=== PATIENT | female | born 1935 | race Caucasian/White ===

== ENCOUNTER 2017-08-25 12:13 | Emergency (ER) | payer MEDICARE ==
--- NOTE | 2017-08-25 13:10 | ED ---
General Adult HPI - General Chief complaint: Back Pain/Injury Stated complaint: Back Pain-sent by dr Ocampo Seen by Provider: 08/25/17 12:45 Source: patient, RN notes reviewed Mode of arrival: wheelchair Limitations: no limitations - History of Present Illness Initial comments: This is an 82-year-old female presents to the emergency department complaining of a two-week history of back pain. Patient states the back pain is just beneath her right scapula. Patient states that pain is increased with bending or twisting. Patient states on Tuesday she started having pain in the epigastric right upper quadrant region which eventually subsided and since has not returned. Patient denies any nausea or vomiting. Patient denies any chest pain difficulty breathing or shortness of breath. Patient denies any injury or trauma recently. Patient denies any fever chills or cough. Patient denies headache patient denies numbness weakness. Patient denies lightheadedness dizziness or near syncopal episode. Patient does state that the pain in her back it's better if she lies still and doesn't move. - Related Data Home Medications Medication Instructions Recorded Confirmed Aspirin 81 mg PO DAILY 08/25/17 08/25/17 Cholecalciferol (Vitamin D3) 2,000 unit PO DAILY 08/25/17 08/25/17 [Vitamin D3] Hydrochlorothiazide [Hydrodiuril] 25 mg PO DAILY 08/25/17 08/25/17 Losartan Potassium [Cozaar] 100 mg PO DAILY 08/25/17 08/25/17 Metoprolol Tartrate [Lopressor] 50 mg PO BID 08/25/17 08/25/17 Omeprazole [PriLOSEC] 40 mg PO DAILY 08/25/17 08/25/17 Simvastatin [Zocor] 10 mg PO HS 08/25/17 08/25/17 Warfarin Sodium 2.5 mg PO MOTUWEFRSA 08/25/17 08/25/17 Warfarin [Coumadin] 1.25 mg PO SUTH 08/25/17 08/25/17 amLODIPine [Norvasc] 2.5 mg PO DAILY 08/25/17 08/25/17 glipiZIDE [Glucotrol] 5 mg PO AC-BID 08/25/17 08/25/17 metFORMIN HCL [Glucophage] 1,000 mg PO AC-BID 08/25/17 08/25/17 Allergies Allergy/AdvReac Type Severity Reaction Status Date / Time azithromycin Allergy Dyspnea & Verified 08/25/17 13:12 nausea ciprofloxacin [From Cipro] Allergy Dyspnea & Verified 08/25/17 13:12 nausea Penicillins Allergy Rash/Hives Verified 08/25/17 13:12 Review of Systems ROS Statement: Those systems with pertinent positive or pertinent negative responses have been documented in the HPI. ROS Other: All systems not noted in ROS Statement are negative. Past Medical History Past Medical History: No Reported History, Diabetes Mellitus, GERD/Reflux, Hyperlipidemia, Hypertension, Osteoarthritis (OA), Pulmonary Embolus (PE) Additional Past Medical History / Comment(s): obestiy pe dvt History of Any Multi-Drug Resistant Organisms: None Reported Past Surgical History: Joint Replacement Additional Past Surgical History / Comment(s): thelma knee replac shoulder carpel tunnel vaginal duct cyst benign breast surg cataracts Past Psychological History: No Psychological Hx Reported Smoking Status: Never smoker Past Alcohol Use History: Rare Past Drug Use History: None Reported General Exam - General Exam Comments Initial Comments: GENERAL: Patient is well-developed and well-nourished. Patient is nontoxic and well- hydrated and is in no acute distress. ENT: Neck is soft and supple. No significant lymphadenopathy is noted. Oropharynx is clear. Moist mucous membranes. Neck has full range of motion without eliciting any pain. EYES: The sclera were anicteric and conjunctiva were pink and moist. Extraocular movements were intact and pupils were equal round and reactive to light. Eyelids were unremarkable. PULMONARY: Unlabored respirations. Good breath sounds bilaterally. No audible rales rhonchi or wheezing was noted. CARDIOVASCULAR: There is a regular rate and rhythm without any murmurs gallops or rubs. ABDOMEN: Soft and nontender with normal bowel sounds. No palpable organomegaly was noted. There is no palpable pulsatile mass. SKIN: Skin is clear with no lesions or rashes and otherwise unremarkable. NEUROLOGIC: Patient is alert and oriented x3. Cranial nerves II through XII are grossly intact. Motor and sensory are also intact. Normal speech, volume and content. Symmetrical smile. MUSCULOSKELETAL: Normal extremities with adequate strength and full range of motion. Patient has tenderness about the right scapula and just beneath the right scapula. Patient states this pain is same pain that she has been experiencing.. LYMPHATICS: No significant lymphadenopathy is noted PSYCHIATRIC: Normal psychiatric evaluation. Limitations: no limitations Course Vital Signs 08/25/17 08/25/17 08/25/17 12:45 14:14 15:53 Temperature 99.3 F Pulse Rate 59 L 64 66 Respiratory 18 16 16 Rate Blood Pressure 120/59 129/68 130/70 O2 Sat by Pulse 98 100 98 Oximetry Medical Decision Making - Medical Decision Making EKG shows sinus rhythm at 64 bpm [place] interval is 202 QRS is 84 QT interval 424 QTC is 437. Patient's EKG shows no ST segment elevation or depression or T- wave abnormality she noted Patient's ultrasound of the aorta was normal. Patient's ultrasound gallbladder did not show any signs of acute cholecystitis. Patient stated the Toradol seemed to help her pain. Patient stated that she was able to twist more freely at this time. - Lab Data Result diagrams: 08/25/17 13:30 08/25/17 13:30 Lab Results 08/25/17 08/25/17 08/25/17 Range/Units 13:30 13:30 13:30 WBC 7.4 (3.8-10.6) k/uL RBC 4.78 (3.80-5.40) m/uL Hgb 14.4 (11.4-16.0) gm/dL Hct 44.1 (34.0-46.0) % MCV 92.2 (80.0-100.0) fL MCH 30.2 (25.0-35.0) pg MCHC 32.8 (31.0-37.0) g/dL RDW 15.4 (11.5-15.5) % Plt Count 244 (150-450) k/uL Neutrophils % 66 % Lymphocytes % 23 % Monocytes % 7 % Eosinophils % 2 % Basophils % 1 % Neutrophils # 4.9 (1.3-7.7) k/uL Lymphocytes # 1.7 (1.0-4.8) k/uL Monocytes # 0.5 (0-1.0) k/uL Eosinophils # 0.2 (0-0.7) k/uL Basophils # 0.0 (0-0.2) k/uL Sodium 138 (137-145) mmol/L Potassium 4.2 (3.5-5.1) mmol/L Chloride 104 (98-107) mmol/L Carbon Dioxide 23 (22-30) mmol/L Anion Gap 11 mmol/L BUN 20 H (7-17) mg/dL Creatinine 0.73 (0.52-1.04) mg/dL Est GFR (MDRD) Af Amer >60 (>60 ml/min/1.73 sqM) Est GFR (MDRD) Non-Af >60 (>60 ml/min/1.73 sqM) Glucose 110 H (74-99) mg/dL Calcium 9.3 (8.4-10.2) mg/dL Total Bilirubin 0.3 (0.2-1.3) mg/dL AST 16 (14-36) U/L ALT 22 (9-52) U/L Alkaline Phosphatase 74 (38-126) U/L Total Creatine Kinase 43 (30-135) U/L CK-MB (CK-2) 0.8 (0.0-2.4) ng/mL CK-MB (CK-2) Rel Index 1.9 Troponin I <0.012 (0.000-0.034) ng/mL Total Protein 6.7 (6.3-8.2) g/dL Albumin 3.5 (3.5-5.0) g/dL Amylase 39 (30-110) U/L Lipase 92 (23-300) U/L Disposition Clinical Impression: Acute thoracic back pain Disposition: HOME SELF-CARE Condition: Good Instructions: Thoracic Back Strain (ED) Additional Instructions: Patient should take 40 mg of Motrin 2-3 times a day when necessary for pain Referrals: Lexis Mcdowell MD [Primary Care Provider] - 1-2 days Time of Disposition: 16:03
[2017-08-25] MEDS ORDERED: KETOROLAC 30 MG/ML 1 ML VIAL IVP STA (13:39)
[2017-08-25 13:56] LABS: Basophils % (A) 1 %; CH 30.9; CHCM 33.7; Eosinophils # (A) 0.2 k/uL (0-0.7); Eosinophils % (A) 2 %; HCT 44.1 % (34.0-46.0); HDW 2.64; HGB 14.4 gm/dL (11.4-16.0); Luc # (Auto) 0.11; Luc % (Auto) 2; Lymphocytes # (A) 1.7 k/uL (1.0-4.8); Lymphocytes % (A) 23 %; MCH 30.2 pg (25.0-35.0); MCHC 32.8 g/dL (31.0-37.0); MCV 92.2 fL (80.0-100.0); Mean Platelet Volume 8.6; Monocytes # (A) 0.5 k/uL (0-1.0); Monocytes % (A) 7 %; Neutrophils # (A) 4.9 k/uL (1.3-7.7); Neutrophils % (A) 66 %; RBC 4.78 m/uL (3.80-5.40); RDW 15.4 % (11.5-15.5); WBC 7.4 k/uL (3.8-10.6); WBC (Perox) 7.25
--- NOTE | 2017-08-25 14:00 | XR ---
EXAMINATION TYPE: XR chest 2V DATE OF EXAM: 08/25/2017 COMPARISON: 06/06/2013 HISTORY: Lower chest pain TECHNIQUE: Frontal and lateral views of the chest are obtained. FINDINGS: There is no focal air space opacity, pleural effusion, or pneumothorax seen. The cardiac silhouette size is mildly enlarged. Left humeral arthroplasty is noted The osseous structures are in tact. Mild degenerative changes of the thoracic spine are seen. Copious soft tissues partially obscur e the lower lungs. Degenerative changes of the right glenohumeral joint are also noted. IMPRESSION: No acute cardiopulmonary process.
[2017-08-25 14:03] LABS: ALT 22 U/L (9-52); AST 16 U/L (14-36); Alkaline Phosphatase 74 U/L (38-126); Amylase 39 U/L (30-110); Anion Gap 11 mmol/L; Blood Urea Nitrogen 20 mg/dL (7-17); Calcium 9.3 mg/dL (8.4-10.2); Carbon Dioxide 23 mmol/L (22-30); Chloride 104 mmol/L (98-107); Glucose 110 mg/dL (74-99); Non-African American GFR(MDRD) >60 (>60 ml/min/1.73 sqM); Potassium 4.2 mmol/L (3.5-5.1); Sodium 138 mmol/L (137-145); Total Bilirubin 0.3 mg/dL (0.2-1.3); Total Protein 6.7 g/dL (6.3-8.2)
[2017-08-25 14:18] VITALS: RESP 16
[2017-08-25 14:18] LABS: Creatine Kinase 43 U/L (30-135)
[2017-08-25 14:31] LABS: Creatine Kinase MB 0.8 ng/mL (0.0-2.4); Troponin I <0.012 ng/mL (0.000-0.034)
--- NOTE | 2017-08-25 15:50 | US ---
EXAMINATION TYPE: US duplex aorta DATE OF EXAM: 08/25/2017 COMPARISON: NONE CLINICAL HISTORY: Pain. midline pain radiating to back. Nonsmoker. EXAM MEASUREMENTS: Abdominal Aorta: Proximal: 1.7 x 2.5 cm Mid: 1.5 x 1.8 cm Distal: 1.4 x 1.5 cm Bifurcation: Right- 1.4 x 1.0 cm Left- 1.4 x 0.9 cm Suboptimal visualization due to overlying bowel gas and patient body habitus. Portions seen, no AAA was visualized. Grayscale, color Doppler, spectral Doppler imaging performed of the abdominal aorta. IMPRESSION: Abdominal aortic aneurysm is not evident within the abdominal aorta as visualized. There are slight limitations in the exam however.
--- NOTE | 2017-08-25 15:51 | US ---
EXAMINATION TYPE: US gallbladder DATE OF EXAM: 08/25/2017 COMPARISON: NONE CLINICAL HISTORY: Pain. ML pain, no nausea or vomiting. Patient states last eating at 8 AM. EXAM MEASUREMENTS: Liver Length: 22.5 cm Gallbladder Wall: 0.3 cm CBD: 0.6 cm Right Kidney: 10.9 x 5.1 x 5.6 cm Suboptimal visualization due to patient body habitus. Pancreas: Appears echogenic. Tail not seen due to overlying bowel gas Liver: enlarged. Appears coarse and hyperechoic. Gallbladder: echogenic focus with shadowing seen adjacent to wall and nonmoving= 0.6 cm Evidence for sonographic Gottlieb's sign: neg CBD: wnl Right Kidney: lateral cystic lesion in cortical tissue - 1.2 x 0.8 x 0.9 cm. Cystic lesion seen in sinus region, cyst vs dilated vessel = 0.9 x 1.2 x 0.9 cm there is cortical thinning. There is no ascites. IMPRESSION: Hepatomegaly, correlate for hepatic steatosis. Some limitations in exam. Possible adheren t stone within the gallbladder or polyp.
[2017-08-25 15:54] VITALS: BP 130/70; PULSE 66
[2017-08-25 16:26] VITALS: TEMP 98
[2017-08-25] MEDS ORDERED: KETOROLAC 30 MG/ML 1 ML VIAL IVP SCH (18:00)
== END 2017-08-25 16:24 | disposition home or self-care (01) ==
LOC: EC 12:13
DX: M54.6 Pain in thoracic spine (principal); E11.9 Type 2 diabetes mellitus without complications; K21.9 Gastro-esophageal reflux disease without esophagitis; E78.5 Hyperlipidemia, unspecified; I10 Essential (primary) hypertension; M19.90 Unspecified osteoarthritis, unspecified site; E66.9 Obesity, unspecified; Z86.718 Personal history of other venous thrombosis and embolism; Z86.711 Personal history of pulmonary embolism; Z68.43 Body mass index [BMI] 50.0-59.9, adult; Z88.1 Allergy status to other antibiotic agents; Z88.0 Allergy status to penicillin; Z79.82 Long term (current) use of aspirin; Z79.01 Long term (current) use of anticoagulants; Z79.84 Long term (current) use of oral hypoglycemic drugs; Z79.899 Other long term (current) drug therapy
CPT/HCPCS: 99284 ×2; 96374 ×2; 36415; 93005; 80053; 82150; 82550; 82553; 83690; 84484; 85025; 71020; 76705; 93979; J1885

== ENCOUNTER → 2017-09-05 | Outpatient (CLI) | payer MEDICARE ==
--- NOTE | 2017-09-06 08:53 | MM ---
Reason for exam: screening (asymptomatic). Last mammogram was performed 1 year ago. History: Patient is postmenopausal. Benign excisional biopsy of the left breast, 1980. Physical Findings: A clinical breast exam by your physician is recommended on an annual basis and results should be correlated with mammographic findings. MG 3D Screening Mammo W/Cad Bilateral CC, MLO, and XCCL view(s) were taken. Prior study comparison: August 30, 2016, bilateral MG 3d diag mammo w/cad IZABELA. March 01, 2016, right breast MG 3d diag mammo w/cad RT. There are scattered fibroglandular densities. There are typically benign calcifications. No significant changes when compared with prior studies. ASSESSMENT: Benign, BI-RAD 2 RECOMMENDATION: Routine screening mammogram of both breasts in 1 year.
== END | disposition home or self-care (01) ==
LOC: RADMAMWWP 09:44
PROVIDERS: ATTEND Family Medicine
DX: Z12.31 Encounter for screening mammogram for malignant neoplasm of breast (principal)
CPT/HCPCS: 77063; G0202

== ENCOUNTER 2017-09-14 08:01 | Emergency (ER) | payer MEDICARE ==
[2017-09-14 08:06] VITALS: PULSE 60; TEMP 97.6
[2017-09-14] MEDS ORDERED: SODIUM CHLORIDE 0.9% 1,000 ML IV STA ×2 (08:16)
[2017-09-14] MEDS ORDERED: ONDANSETRON 4 MG/2 ML VIAL IVP STA (08:16)
[2017-09-14] MEDS ORDERED: HYDROmorphone 0.5 MG/0.5 ML SYRINGE IVP STA (08:16)
[2017-09-14] MEDS ORDERED: RX INFO: IV CONTRAST WAS GIVEN 1 EACH MISC MISCELLANE PRN (08:16)
--- NOTE | 2017-09-14 08:50 | ED ---
Abdominal Pain HPI - General Chief Complaint: Abdominal Pain Stated Complaint: abdominal pain Time Seen by Provider: 09/14/17 08:09 Source: patient, RN notes reviewed, old records reviewed Mode of arrival: wheelchair Limitations: no limitations - History of Present Illness Initial Comments: Patient is an 82-year-old female presents emergency Department with 1 day of right upper quadrant abdominal pain that radiates towards her back. Patient reports that she had a similar pain like this 3 weeks ago. At that time she was told she had a gallbladder polyp. She reports that she thinks she may be having some issues with her gallbladder. She states that she's had no vomiting , she reports she does feel nauseated. She denies any changes in bowel habits. She denies any changes in urination, including hematuria or dysuria. Patient reports no abdominal surgeries. Patient denies any chest pain or shortness of breath. She does have bilateral knee replacements and shoulder repair.Patient has a history of diabetes, acid reflux, hyperlipidemia, hypertension, osteoarthritis, and history of pulmonary embolus. - Related Data Home Medications Medication Instructions Recorded Confirmed Aspirin 81 mg PO DAILY 08/25/17 09/14/17 Cholecalciferol (Vitamin D3) 2,000 unit PO DAILY 08/25/17 09/14/17 [Vitamin D3] Hydrochlorothiazide [Hydrodiuril] 25 mg PO DAILY 08/25/17 09/14/17 Losartan Potassium [Cozaar] 100 mg PO DAILY 08/25/17 09/14/17 Metoprolol Tartrate [Lopressor] 50 mg PO BID 08/25/17 09/14/17 Omeprazole [PriLOSEC] 40 mg PO DAILY 08/25/17 09/14/17 Simvastatin [Zocor] 10 mg PO HS 08/25/17 09/14/17 Warfarin Sodium 2.5 mg PO MOTUWEFRSA 08/25/17 09/14/17 Warfarin [Coumadin] 1.25 mg PO SUTH 08/25/17 09/14/17 amLODIPine [Norvasc] 2.5 mg PO DAILY 08/25/17 09/14/17 glipiZIDE [Glucotrol] 5 mg PO AC-BID 08/25/17 09/14/17 metFORMIN HCL [Glucophage] 1,000 mg PO AC-BID 08/25/17 09/14/17 Previous Rx's Medication Instructions Recorded Famotidine [Pepcid] 20 mg PO BID #20 tablet 09/14/17 Allergies Allergy/AdvReac Type Severity Reaction Status Date / Time azithromycin Allergy Dyspnea & Verified 09/14/17 08:14 nausea ciprofloxacin [From Cipro] Allergy Dyspnea & Verified 09/14/17 08:14 nausea Penicillins Allergy Rash/Hives Verified 09/14/17 08:14 Review of Systems ROS Statement: Those systems with pertinent positive or pertinent negative responses have been documented in the HPI. ROS Other: All systems not noted in ROS Statement are negative. Past Medical History Past Medical History: No Reported History, Diabetes Mellitus, GERD/Reflux, Hyperlipidemia, Hypertension, Osteoarthritis (OA), Pulmonary Embolus (PE) Additional Past Medical History / Comment(s): obestiy pe dvt History of Any Multi-Drug Resistant Organisms: None Reported Past Surgical History: Joint Replacement Additional Past Surgical History / Comment(s): thelma knee replac shoulder carpel tunnel vaginal duct cyst benign breast surg cataracts Past Psychological History: No Psychological Hx Reported Smoking Status: Never smoker Past Alcohol Use History: Rare Past Drug Use History: None Reported General Exam - General Exam Comments Initial Comments: 82-year-old female. No acute distress. Patient is morbidly obese. Limitations: no limitations General appearance: alert, in no apparent distress Head exam: Present: atraumatic, normocephalic, normal inspection Eye exam: Present: normal appearance, PERRL, EOMI. Absent: scleral icterus, conjunctival injection, periorbital swelling ENT exam: Present: normal exam, mucous membranes moist Neck exam: Present: normal inspection. Absent: tenderness, meningismus, lymphadenopathy Respiratory exam: Present: normal lung sounds bilaterally. Absent: respiratory distress, wheezes, rales, rhonchi, stridor Cardiovascular Exam: Present: regular rate, normal rhythm, normal heart sounds. Absent: systolic murmur, diastolic murmur, rubs, gallop, clicks GI/Abdominal exam: Present: soft, tenderness (Patient is diffuse abdominal tenderness. Worse on RLQ. ), normal bowel sounds. Absent: distended, guarding, rebound, rigid Extremities exam: Present: normal inspection, full ROM, normal capillary refill , other (Patient has chronic skin thickening over bilateral lower extremities consistent with venous stasis.). Absent: tenderness, pedal edema, joint swelling, calf tenderness Back exam: Present: normal inspection Neurological exam: Present: alert, oriented X3, CN II-XII intact Psychiatric exam: Present: normal affect, normal mood Skin exam: Present: warm, dry, intact, normal color. Absent: rash Course Vital Signs 09/14/17 09/14/17 08:02 11:49 Temperature 97.6 F 97.6 F Pulse Rate 60 60 Respiratory 18 16 Rate Blood Pressure 192/79 109/70 O2 Sat by Pulse 96 96 Oximetry Medical Decision Making - Medical Decision Making Patient is an 82-year-old female presents emergency Department with 1 day of right upper quadrant abdominal pain that radiates towards her back. Patient reports that she had a similar pain like this 3 weeks ago. At that time she was told she had a gallbladder polyp. She reports that she thinks she may be having some issues with her gallbladder. She states that she's had no vomiting , she reports she does feel nauseated. Patient given IV fluids and pain medication and labs obtained. She does have diffuse abdominal tenderness, which tends to be worse inRUQ. At this time CT was completed. Questionable gallbladder sludge. Patients labs are unremarkable. Normal LFT, normal Amylase and lipase. Patient informed that she likely has a poor functioning gallbladder. Patient CT also noted fluid filled esophagous, she has had no vomiting, and is stating she is hungry in ED. Discussed patient should follow up outpatiently for GB US and HIDA scan. Discussed return parameters and patient will be discharged with pepcid. PAtient agrees and would like to go home at this time . - Lab Data Result diagrams: 09/14/17 08:24 09/14/17 08:24 Lab Results 09/14/17 09/14/17 09/14/17 Range/Units 08:24 08:24 08:24 WBC 5.7 (3.8-10.6) k/uL RBC 4.72 (3.80-5.40) m/uL Hgb 13.9 (11.4-16.0) gm/dL Hct 43.0 (34.0-46.0) % MCV 91.2 (80.0-100.0) fL MCH 29.5 (25.0-35.0) pg MCHC 32.4 (31.0-37.0) g/dL RDW 14.2 (11.5-15.5) % Plt Count 230 (150-450) k/uL Neutrophils % 64 % Lymphocytes % 24 % Monocytes % 8 % Eosinophils % 2 % Basophils % 1 % Neutrophils # 3.7 (1.3-7.7) k/uL Lymphocytes # 1.3 (1.0-4.8) k/uL Monocytes # 0.4 (0-1.0) k/uL Eosinophils # 0.1 (0-0.7) k/uL Basophils # 0.0 (0-0.2) k/uL PT 24.7 H (9.0-12.0) sec INR 2.6 H (<1.2) APTT 31.5 H (22.0-30.0) sec Sodium 139 (137-145) mmol/L Potassium 4.4 (3.5-5.1) mmol/L Chloride 103 (98-107) mmol/L Carbon Dioxide 26 (22-30) mmol/L Anion Gap 10 mmol/L BUN 19 H (7-17) mg/dL Creatinine 0.71 (0.52-1.04) mg/dL Est GFR (MDRD) Af Amer >60 (>60 ml/min/1.73 sqM) Est GFR (MDRD) Non-Af >60 (>60 ml/min/1.73 sqM) Glucose 129 H (74-99) mg/dL Calcium 9.1 (8.4-10.2) mg/dL Total Bilirubin 0.6 (0.2-1.3) mg/dL AST 19 (14-36) U/L ALT 24 (9-52) U/L Alkaline Phosphatase 69 (38-126) U/L Troponin I (0.000-0.034) ng/mL Total Protein 6.6 (6.3-8.2) g/dL Albumin 3.4 L (3.5-5.0) g/dL Amylase 35 (30-110) U/L Lipase 109 (23-300) U/L Urine Color Urine Appearance (Clear) Urine pH (5.0-8.0) Ur Specific [place] (1.001-1.035) Urine Protein (Negative) Urine Glucose (UA) (Negative) Urine Ketones (Negative) Urine Blood (Negative) Urine Nitrite (Negative) Urine Bilirubin (Negative) Urine Urobilinogen (<2.0) mg/dL Ur Leukocyte Esterase (Negative) 09/14/17 09/14/17 Range/Units 08:24 10:17 WBC (3.8-10.6) k/uL RBC (3.80-5.40) m/uL Hgb (11.4-16.0) gm/dL Hct (34.0-46.0) % MCV (80.0-100.0) fL MCH (25.0-35.0) pg MCHC (31.0-37.0) g/dL RDW (11.5-15.5) % Plt Count (150-450) k/uL Neutrophils % % Lymphocytes % % Monocytes % % Eosinophils % % Basophils % % Neutrophils # (1.3-7.7) k/uL Lymphocytes # (1.0-4.8) k/uL Monocytes # (0-1.0) k/uL Eosinophils # (0-0.7) k/uL Basophils # (0-0.2) k/uL PT (9.0-12.0) sec INR (<1.2) APTT (22.0-30.0) sec Sodium (137-145) mmol/L Potassium (3.5-5.1) mmol/L Chloride (98-107) mmol/L Carbon Dioxide (22-30) mmol/L Anion Gap mmol/L BUN (7-17) mg/dL Creatinine (0.52-1.04) mg/dL Est GFR (MDRD) Af Amer (>60 ml/min/1.73 sqM) Est GFR (MDRD) Non-Af (>60 ml/min/1.73 sqM) Glucose (74-99) mg/dL Calcium (8.4-10.2) mg/dL Total Bilirubin (0.2-1.3) mg/dL AST (14-36) U/L ALT (9-52) U/L Alkaline Phosphatase (38-126) U/L Troponin I <0.012 (0.000-0.034) ng/mL Total Protein (6.3-8.2) g/dL Albumin (3.5-5.0) g/dL Amylase (30-110) U/L Lipase (23-300) U/L Urine Color Yellow Urine Appearance Clear (Clear) Urine pH 7.0 (5.0-8.0) Ur Specific [place] 1.019 (1.001-1.035) Urine Protein Trace H (Negative) Urine Glucose (UA) Negative (Negative) Urine Ketones Negative (Negative) Urine Blood Negative (Negative) Urine Nitrite Negative (Negative) Urine Bilirubin Negative (Negative) Urine Urobilinogen 2.0 (<2.0) mg/dL Ur Leukocyte Esterase Negative (Negative) 09/14/17 10:13 EKG shows normal sinus rhythm. Return 63 bpm. RI interval 206 most seconds. QRS her stay 2 ms. QT QTc is 420/429 ms. No evidence of ST elevation or T- wave inversion. No dense of atrial or ventricular arrhythmias. - Radiology Data Radiology results: report reviewed Evidence of hepatomegaly. Findings suspicious for hepatic steatosis. Possible cholelithiasis or tumefactive sludge within the gallbladder. Probable right adrenal gland adenoma. Diverticulosis. Fluid-filled esophagus. Difficult to exclude esophageal thickening. Correlate for possible esophagitis, mucosal abnormality. Disposition Clinical Impression: Sludge in gallbladder, Abdominal pain Disposition: HOME SELF-CARE Condition: Good Instructions: Abdominal Pain (ED) Additional Instructions: Patient has a follow-up with her primary care provider regards to further evaluation. Patient instructed to have a possible HIDA scan. Call her primary care provider today and schedule appointment tomorrow. Return to emergency department if any alarming signs or symptoms occur. Prescriptions: Famotidine [Pepcid] 20 mg PO BID #20 tablet Referrals: Lexis Mcdowell MD [Primary Care Provider] - 1-2 days Time of Disposition: 11:36
[2017-09-14 08:56] LABS: Basophils % (A) 1 %; Eosinophils # (A) 0.1 k/uL (0-0.7); Eosinophils % (A) 2 %; HDW 2.68; HGB 13.9 gm/dL (11.4-16.0); Luc # (Auto) 0.08; Luc % (Auto) 2; Lymphocytes # (A) 1.3 k/uL (1.0-4.8); Lymphocytes % (A) 24 %; MCH 29.5 pg (25.0-35.0); MCHC 32.4 g/dL (31.0-37.0); MCV 91.2 fL (80.0-100.0); Mean Platelet Volume 7.8; Monocytes # (A) 0.4 k/uL (0-1.0); Monocytes % (A) 8 %; Neutrophils # (A) 3.7 k/uL (1.3-7.7); Neutrophils % (A) 64 %; RBC 4.72 m/uL (3.80-5.40); RDW 14.2 % (11.5-15.5); WBC 5.7 k/uL (3.8-10.6); WBC (Perox) 5.79
[2017-09-14 09:06] LABS: INR 2.6 (<1.2); Partial Thromboplastin Time 31.5 sec (22.0-30.0); Prothrombin Time 24.7 sec (9.0-12.0)
[2017-09-14 09:15] LABS: ALT 24 U/L (9-52); AST 19 U/L (14-36); Alkaline Phosphatase 69 U/L (38-126); Amylase 35 U/L (30-110); Anion Gap 10 mmol/L; Blood Urea Nitrogen 19 mg/dL (7-17); Calcium 9.1 mg/dL (8.4-10.2); Carbon Dioxide 26 mmol/L (22-30); Chloride 103 mmol/L (98-107); Glucose 129 mg/dL (74-99); Non-African American GFR(MDRD) >60 (>60 ml/min/1.73 sqM); Potassium 4.4 mmol/L (3.5-5.1); Sodium 139 mmol/L (137-145); Total Bilirubin 0.6 mg/dL (0.2-1.3); Total Protein 6.6 g/dL (6.3-8.2)
[2017-09-14 10:34] LABS: Appearance,Urine Clear (Clear); Bilirubin,Urine Negative (Negative); Glucose,Urine (UA) Negative (Negative); Ketones,Urine Negative (Negative); Leukocyte Esterase,Urine Negative (Negative); Nitrite,Urine Negative (Negative); Protein,Urine Trace (Negative); Specific Gravity,Urine 1.019 (1.001-1.035); UA Billing (MACRO vs. MICRO) CHEM
--- NOTE | 2017-09-14 10:48 | CT ---
EXAMINATION TYPE: CT abdomen pelvis w con DATE OF EXAM: 09/14/2017 COMPARISON: Ultrasound right upper quadrant 08/25/2017 HISTORY: RUQ pain CT DLP: 3162.0 mGycm Automated exposure control for dose reduction was used. TECHNIQUE: Helical acquisition of images from the lung bases through the pelvis have been completed. CONTRAST: Performed without Oral Contrast and with IV Contrast, patient injected with 100 mL of Omnipaque 300. FINDINGS: Distal esophagus shows fluid-filled appearance. Difficult to exclude some distal esophageal thickening. LUNG BASES: Some minimal basilar atelectatic changes are present, some calcifications in the right po sterior costophrenic angle may be pleural or represent granuloma. AORTA: No significant abnormality is appreciated. LIVER/GB: Liver shows a slightly low dense appearance and is enlarged, gallbladder shows some heterog eneous density in the dependent portion which may be accounts receivable representative of tumefactive sludge or small st ones. PANCREAS: Somewhat foreshortened appearance could be normal variant, correlate for possible history o f prior surgical intervention.. SPLEEN: No significant abnormality is seen. ADRENALS: Right adrenal gland shows a low dense nodule measuring 17 mm. KIDNEYS: Left kidney upper pole shows a cystic focus measuring approximately 2.7 cm, smaller subcenti meter cortical cysts suspected on the right. Possible parapelvic cyst on the left, no hydronephrosis. REPRODUCTIVE ORGANS: Calcification associated with the uterus could be due to calcified fibroid. Ovar ies unremarkable. There is some limitation in evaluation due to artifact. BOWEL: Scattered diverticular changes associated with the colon. There is an umbilical hernia contai robbin fat, the mouth of the hernia measures approximately 2.6 cm. The appendix is normal. FREE AIR: No Free Air visible. ASCITES: None visible. PELVIC ADENOPATHY: None visualized. RETROPERITONEAL ADENOPATHY: No Retroperitoneal Adenopathy visible. URINARY BLADDER: No significant abnormality is seen. OSSEOUS STRUCTURES: Degenerative disc changes are present in the visualized spine. Facet arthropathy is also present. There is a mild spinal curvature and multilevel listhesis. Probable spinal stenosis present in the lumbar spine. IMPRESSION: HEPATOMEGALY, FINDINGS SUSPICIOUS FOR HEPATIC STEATOSIS. POSSIBLE CHOLELITHIASIS OR TUMEFACTIVE SLUDG E WITHIN THE GALLBLADDER. 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 DIVERTICULOSIS. FLUID-FILLED ESOPHAGU S, DIFFICULT TO EXCLUDE ESOPHAGEAL THICKENING, CORRELATE FOR POSSIBLE ESOPHAGITIS, MUCOSAL ABNORMALIT Y. ADDITIONAL FINDINGS ABOVE.
[2017-09-14] MEDS ORDERED: HYDROmorphone 1 MG/ML 1 ML SYRINGE IVP STA (11:36)
[2017-09-14 11:49] VITALS: BP 109/70; RESP 16
== END 2017-09-14 11:54 | disposition home or self-care (01) ==
LOC: EC 08:01
DX: K82.8 Other specified diseases of gallbladder (principal); R11.0 Nausea; M19.90 Unspecified osteoarthritis, unspecified site; I10 Essential (primary) hypertension; E78.5 Hyperlipidemia, unspecified; K21.9 Gastro-esophageal reflux disease without esophagitis; E11.9 Type 2 diabetes mellitus without complications; E66.01 Morbid (severe) obesity due to excess calories; Z68.43 Body mass index [BMI] 50.0-59.9, adult; Z86.711 Personal history of pulmonary embolism; Z86.718 Personal history of other venous thrombosis and embolism; Z88.1 Allergy status to other antibiotic agents; Z88.0 Allergy status to penicillin; Z79.82 Long term (current) use of aspirin; Z79.01 Long term (current) use of anticoagulants; Z79.84 Long term (current) use of oral hypoglycemic drugs; Z79.899 Other long term (current) drug therapy
CPT/HCPCS: 36415; 93005; 80053; 82150; 83690; 84484; 85025; 85610; 85730; 81003; 74177; 99285; 96374; 96376; 96375; 96361 ×3; J2405; J1170 ×2; Q9967

== ENCOUNTER 2017-11-18 11:17 | Emergency (ER) | payer MEDICARE ==
[2017-11-18] MEDS ORDERED: ONDANSETRON 4 MG/2 ML VIAL IVP STA (12:06)
[2017-11-18] MEDS ORDERED: HYDROmorphone 1 MG/ML 1 ML SYRINGE IVP STA (12:06)
[2017-11-18] MEDS ORDERED: SODIUM CHLORIDE 0.9% 500 ML IV STA (12:06)
--- NOTE | 2017-11-18 12:19 | ED ---
Abdominal Pain HPI - General Chief Complaint: Abdominal Pain Stated Complaint: Abdominal pain Time Seen by Provider: 11/18/17 11:57 Source: patient Mode of arrival: wheelchair Limitations: no limitations - History of Present Illness Initial Comments: 82-year-old female patient presents to the emergency department today for evaluation of right-sided and mid epigastric abdominal pain that radiates around to her back. Patient states that symptoms started approximately one hour ago. She states that it is an intense cramping pain. Patient states she does feel nauseated however has not vomited. She denies any constipation, diarrhea, hematochezia, melena, hematuria, dysuria, urinary frequency, or urinary urgency. She denies any chest pain or shortness of breath. She denies any fevers or chills. Patient denies any recent rash, numbness, tingling, dizziness, weakness, headache, visual changes, or any other complaints. Patient is status post cholecystectomy [address] Cast. She has a known ventral hernia. - Related Data Home Medications Medication Instructions Recorded Confirmed Aspirin 81 mg PO DAILY 08/25/17 11/18/17 Cholecalciferol (Vitamin D3) 2,000 unit PO DAILY 08/25/17 11/18/17 [Vitamin D3] Hydrochlorothiazide [Hydrodiuril] 25 mg PO DAILY 08/25/17 11/18/17 Losartan Potassium [Cozaar] 100 mg PO DAILY 08/25/17 11/18/17 Metoprolol Tartrate [Lopressor] 50 mg PO BID 08/25/17 11/18/17 Omeprazole [PriLOSEC] 40 mg PO AC-SUPPER 08/25/17 11/18/17 Simvastatin [Zocor] 10 mg PO HS 08/25/17 11/18/17 Warfarin Sodium 2.5 mg PO MOTUWEFRSA 08/25/17 11/18/17 Warfarin [Coumadin] 1.25 mg PO SUTH 08/25/17 11/18/17 amLODIPine [Norvasc] 2.5 mg PO DAILY 08/25/17 11/18/17 glipiZIDE [Glucotrol] 5 mg PO AC-BID 08/25/17 11/18/17 metFORMIN HCL [Glucophage] 1,000 mg PO AC-BID 08/25/17 11/18/17 Previous Rx's Medication Instructions Recorded Sulfamethoxazole/Trimethoprim 1 each PO BID #20 tablet 11/18/17 [Bactrim DS 800-160 mg] Allergies Allergy/AdvReac Type Severity Reaction Status Date / Time azithromycin Allergy Dyspnea & Verified 11/18/17 12:32 nausea ciprofloxacin [From Cipro] Allergy Dyspnea & Verified 11/18/17 12:32 nausea Penicillins Allergy Rash/Hives Verified 11/18/17 12:32 Review of Systems ROS Statement: Those systems with pertinent positive or pertinent negative responses have been documented in the HPI. ROS Other: All systems not noted in ROS Statement are negative. 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 History of Any Multi-Drug Resistant Organisms: None Reported Past Surgical History: Breast Surgery, Cholecystectomy, Joint Replacement, Orthopedic Surgery Additional Past Surgical History / Comment(s): thelma knee replac; L shoulder replac.; carpel tunnel vaginal duct cyst; benign breast surg; cataracts; retinal repair Past Anesthesia/Blood Transfusion Reactions: No Reported Reaction Past Psychological History: No Psychological Hx Reported Smoking Status: Never smoker Past Alcohol Use History: None Reported Past Drug Use History: None Reported - Past Family History Father Family Medical History: Deep Vein Thrombosis (DVT) General Exam Limitations: no limitations General appearance: alert, in no apparent distress, other (This is a well developed, morbidly obese female patient in no acute distress. Vital signs on presentation are temperature 99.0 F, Pulse 72, Resp 18, BP 146/93, Pulse ox 95% on room air. ) Eye exam: Present: normal appearance, PERRL, EOMI. Absent: scleral icterus, conjunctival injection, periorbital swelling ENT exam: Present: normal exam, normal oropharynx, mucous membranes moist Respiratory exam: Present: normal lung sounds bilaterally. Absent: respiratory distress, wheezes, rales, rhonchi, stridor Cardiovascular Exam: Present: regular rate, normal rhythm, normal heart sounds. Absent: systolic murmur, diastolic murmur, rubs, gallop, clicks GI/Abdominal exam: Present: soft, tenderness (Midepigastric, right mid abdomen tenderness), normal bowel sounds. Absent: distended, guarding, rebound, rigid Back exam: Present: normal inspection. Absent: CVA tenderness (R), CVA tenderness (L) Neurological exam: Present: alert, oriented X3, CN II-XII intact Psychiatric exam: Present: normal affect, normal mood Skin exam: Present: warm, dry, intact, normal color. Absent: rash Expanded Type of lesion: Present: abscess (Right abdomen beneath pannus. There is a small 2 cm abscess, draining bloody purulent drainage. Mild surrounding erythema.) Course Vital Signs 11/18/17 11/18/17 11/18/17 11:43 13:20 15:20 Temperature 99.0 F 97.8 F 97.1 F L Pulse Rate 72 62 72 Respiratory 18 17 17 Rate Blood Pressure 146/93 157/67 144/66 O2 Sat by Pulse 95 98 96 Oximetry Medical Decision Making - Medical Decision Making 82-year-old female patient presented to the emergency department today for evaluation of right-sided abdominal pain that radiated to her back. Physical examination did reveal some right mid abdominal tenderness and some mild epigastric tenderness. Labs were reviewed and were unremarkable. Urinalysis negative for any acute infection. AB x-ray of the abdomen showed overall nonobstructive bowel gas pattern. CT of the abdomen and pelvis did reveal a mass on the right kidney, diverticulosis without evidence of diverticulitis, and a fat filled ventral hernia. Results were discussed with patient. Patient symptoms did resolve while in the department and she feels comfortable being discharged home at this time. Patient is eating and drinking without difficulty at bedside. She'll be discharged home to follow-up with her primary care physician for further evaluation of the renal lesion. She is instructed to return here immediately for any new, worsening, or concerning symptoms. She verbalizes understanding and agrees with this plan. - Lab Data Result diagrams: 11/18/17 12:20 11/18/17 12:20 Lab Results 11/18/17 11/18/17 11/18/17 Range/Units 12:20 12:20 13:30 WBC 6.4 (3.8-10.6) k/uL RBC 4.69 (3.80-5.40) m/uL Hgb 13.5 (11.4-16.0) gm/dL Hct 42.6 (34.0-46.0) % MCV 90.7 (80.0-100.0) fL MCH 28.8 (25.0-35.0) pg MCHC 31.7 (31.0-37.0) g/dL RDW 15.5 (11.5-15.5) % Plt Count 277 (150-450) k/uL Neutrophils % 77 % Lymphocytes % 16 % Monocytes % 4 % Eosinophils % 1 % Basophils % 1 % Neutrophils # 4.9 (1.3-7.7) k/uL Lymphocytes # 1.0 (1.0-4.8) k/uL Monocytes # 0.3 (0-1.0) k/uL Eosinophils # 0.1 (0-0.7) k/uL Basophils # 0.0 (0-0.2) k/uL Sodium 137 (137-145) mmol/L Potassium 3.8 (3.5-5.1) mmol/L Chloride 100 (98-107) mmol/L Carbon Dioxide 30 (22-30) mmol/L Anion Gap 7 mmol/L BUN 20 H (7-17) mg/dL Creatinine 0.77 (0.52-1.04) mg/dL Est GFR (MDRD) Af Amer >60 (>60 ml/min/1.73 sqM) Est GFR (MDRD) Non-Af >60 (>60 ml/min/1.73 sqM) Glucose 216 H (74-99) mg/dL Calcium 9.8 (8.4-10.2) mg/dL Total Bilirubin 0.4 (0.2-1.3) mg/dL AST 15 (14-36) U/L ALT 23 (9-52) U/L Alkaline Phosphatase 74 (38-126) U/L Total Protein 6.9 (6.3-8.2) g/dL Albumin 3.4 L (3.5-5.0) g/dL Amylase 44 (30-110) U/L Lipase 75 (23-300) U/L Urine Color Yellow Urine Appearance Clear (Clear) Urine pH 5.5 (5.0-8.0) Ur Specific Cucumber 1.018 (1.001-1.035) Urine Protein Trace H (Negative) Urine Glucose (UA) 1+ H (Negative) Urine Ketones Negative (Negative) Urine Blood Small H (Negative) Urine Nitrite Negative (Negative) Urine Bilirubin Negative (Negative) Urine Urobilinogen <2.0 (<2.0) mg/dL Ur Leukocyte Esterase Negative (Negative) Urine RBC 4 (0-5) /hpf Urine WBC 1 (0-5) /hpf Ur Squamous Epith Cells 1 (0-4) /hpf Urine Bacteria Rare H (None) /hpf Hyaline Casts 6 H (0-2) /lpf Urine Mucus Occasional H (None) /hpf - EKG Data EKG Comments: EKG obtained at 1314 shows sinus rhythm with a first-degree AV block with premature atrial complexes. Minimal voltage criteria for LVH. Ventricular rate is 67, MD interval 212, QRS duration 82, QT 396, QTC 418. No evidence of ST elevation or depression. 11/18/17 16:58 EKG obtained at 1314 show sinus rhythm with a first-degree AV block with premature atrial complexes. Minimal voltage criteria for LVH. Ventricular rate is 67, MD interval of 212, QRS duration 82, QT 396, QTC 418. No evidence of ST elevation or depression. - Radiology Data Radiology results: report reviewed, image reviewed Two-view x-ray of the abdomen shows scattered gas in nondistended small bowel loops. Gas and fecal material seen in nondistended colon. Extensive degenerative changes of the visualized there are: Lumbar and lumbosacral spine are present. Calcified probable degenerative fibroid within the left hemipelvis is present. No pneumoperitoneum. Obscuration of the left costophrenic angles likely related to copious soft tissues. Advanced degenerative changes of left and moderate degenerative changes of the right femoral acetabular joints are present. The lung bases are clear in the osseous structures are intact. No evidence of nephrolithiasis. Impression by Dr. Obrien shows nonobstructive bowel gas pattern. No evidence of nephrolithiasis. No nephrolithiasis is seen on prior CT dated 09/14/2017. CT of the abdomen and pelvis with contrast was performed. Report was reviewed in its entirety. Impression by shows no acute intra-abdominal process. Right inferior pole renal lesion does not fit criteria for a renal cyst. Nonhemorrhage and further workup with dynamic three-phase contrast enhanced CT is recommended (Renal mass protocol) for further evaluation. Sigmoid diverticulosis without evidence of diverticulitis. Fat filled ventral abdominal hernia. Disposition Clinical Impression: Abdominal pain, Right renal mass, Left leg cellulitis, Abscess of right groin Disposition: HOME SELF-CARE Condition: Good Instructions: Cellulitis (ED), Abscess (ED), Abdominal Pain (ED) Additional Instructions: Take medications as prescribed. Apply warm compresses to the right groin abscess. Follow-up with her primary care physician for recheck as is possible. Informed or physician of the mass on your right kidney and obtain further testing as recommended. Return here immediately for any new, worsening, or concerning symptoms. Prescriptions: Sulfamethoxazole/Trimethoprim [Bactrim DS 800-160 mg] 1 each PO BID #20 tablet Referrals: Lexis Mcdowell MD [Primary Care Provider] - 1-2 days Time of Disposition: 15:15
[2017-11-18 12:33] LABS: Basophils % (A) 1 %; Eosinophils # (A) 0.1 k/uL (0-0.7); Eosinophils % (A) 1 %; HCT 42.6 % (34.0-46.0); HGB 13.5 gm/dL (11.4-16.0); Lymphocytes % (A) 16 %; MCH 28.8 pg (25.0-35.0); MCHC 31.7 g/dL (31.0-37.0); MCV 90.7 fL (80.0-100.0); Mean Platelet Volume 7.6; Monocytes # (A) 0.3 k/uL (0-1.0); Monocytes % (A) 4 %; Neutrophils # (A) 4.9 k/uL (1.3-7.7); Neutrophils % (A) 77 %; Platelet Count 277 k/uL (150-450); RBC 4.69 m/uL (3.80-5.40); RDW 15.5 % (11.5-15.5); WBC 6.4 k/uL (3.8-10.6)
[2017-11-18 13:01] LABS: ALT 23 U/L (9-52); AST 15 U/L (14-36); Albumin 3.4 g/dL (3.5-5.0); Alkaline Phosphatase 74 U/L (38-126); Amylase 44 U/L (30-110); Anion Gap 7 mmol/L; Blood Urea Nitrogen 20 mg/dL (7-17); Calcium 9.8 mg/dL (8.4-10.2); Carbon Dioxide 30 mmol/L (22-30); Chloride 100 mmol/L (98-107); Glucose 216 mg/dL (74-99); Lipase 75 U/L (23-300); Potassium 3.8 mmol/L (3.5-5.1); Sodium 137 mmol/L (137-145); Total Bilirubin 0.4 mg/dL (0.2-1.3); Total Protein 6.9 g/dL (6.3-8.2)
[2017-11-18] MEDS ORDERED: RX INFO: IV CONTRAST WAS GIVEN 1 EACH MISC MISCELLANE PRN (13:17)
--- NOTE | 2017-11-18 13:18 | XR ---
EXAMINATION TYPE: XR KUB DATE OF EXAM: 11/18/2017 1:10 PM CLINICAL HISTORY: Abdominal pain and right-sided flank pain. TECHNIQUE: Single upright image of the abdomen is obtained. COMPARISON: CT abdomen pelvis dated 09/14/2017. FINDINGS: Scattered gas is seen in non-distended small bowel loops. Gas and fecal material is seen in non-distended colon. Extensive degenerative changes of the visualized thoracolumbar and lumbosacral spine are present. Calcified probable degenerative fibroid within the left hemipelvis is present. No pneumoperitoneum. Obscuration of the left costophrenic angles likely related to copious soft tissues. Advanced degenerative changes of the left and moderate degenerative changes of the right femoral yeimi tabular joints are present. The lung bases are clear and the osseous structures are intact. No eviden ce of nephrolithiasis. IMPRESSION: Nonobstructive bowel gas pattern. No evidence of nephrolithiasis. No nephrolithiasis is s een on the prior CT dated 09/14/2017.
[2017-11-18 13:21] VITALS: RESP 17
[2017-11-18 13:47] LABS: Appearance,Urine Clear (Clear); Bacteria,Urine Rare /hpf; Bilirubin,Urine Negative (Negative); Blood,Urine Small (Negative); Color,Urine Yellow; Glucose,Urine (UA) 1+ (Negative); Hyaline Casts,Urine 6 /lpf (0-2); Ketones,Urine Negative (Negative); Leukocyte Esterase,Urine Negative (Negative); Mucus,Urine Occasional /hpf; Nitrite,Urine Negative (Negative); PH, Urine 5.5 (5.0-8.0); Protein,Urine Trace (Negative); RBC,Urine 4 /hpf (0-5); Specific Gravity,Urine 1.018 (1.001-1.035); Squamous Epithelial Cell,Urine 1 /hpf (0-4); Urobilinogen,Urine <2.0 mg/dL (<2.0); WBC,Urine 1 /hpf (0-5)
--- NOTE | 2017-11-18 14:40 | CT ---
EXAMINATION TYPE: CT abdomen pelvis w con DATE OF EXAM: 11/18/2017 HISTORY: Patient complains of RLQ pain. CT DLP: 3203.3mGycm Automated Exposure Control for Dose Reduction was Utilized. CONTRAST: CT scan of the abdomen and pelvis is performed with IV Contrast, patient injected with 100 mL of Omni paque 300. COMPARISON: 09/14/2017. FINDINGS: LUNG BASES: Multifocal bibasilar subsegmental atelectasis and pleural parenchymal scarring are noted. Small hiatal hernia is also seen. LIVER/GB: Gallbladder is either surgically absent or entirely contracted. PANCREAS: No significant abnormality is seen. SPLEEN: No significant abnormality is seen. ADRENALS: Symmetric enlargement of the right adrenal gland is seen without focal nodule suggestive of adrenal gland hyperplasia. Left adrenal gland is unremarkable. KIDNEYS: Exophytic left upper pole renal cyst measures 2.6 cm. 2 smaller subcentimeter right cortical ly based hypoattenuating renal lesions are too small to accurately characterize. Additional medial ri ght inferior pole 1.1 cm renal lesion on series 4 image 37 and 38 does not fit criteria of a renal cy st. No hydronephrosis. BOWEL: Numerous sigmoid diverticula are present without pericolonic fat stranding. What is thought to be the appendix is retrocecal and within normal limits of size. No right lower quadrant fat strandin g changes are present. 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 Ovari es are atrophic. LYMPH NODES: No greater than 1cm abdominal or pelvic lymph nodes are appreciated. OSSEOUS STRUCTURES: Extensive degenerative changes of the femoral acetabular joints are similar to th e prior exam of 09/14/2017. There is grade 1 anterolisthesis of L4 on L5 without pars interarticulari s defects, likely on a degenerative basis. Moderate multilevel degenerative changes of the thoracolum bar spine are noted. OTHER: Fat filled ventral abdominal hernia has a 3.0 cm neck. Moderate calcific atheromatous changes are seen of the abdominal aorta and its branches. IMPRESSION: 1. No acute intra-abdominal process. 2. Right inferior pole renal lesion does not fit criteria for a renal cyst. Nonemergent further john p with dynamic three-phase contrast-enhanced CT is recommended (renal mass protocol) for further eval uation. 3. Sigmoid diverticulosis without evidence of diverticulitis. 4. Fat filled ventral abdominal hernia.
[2017-11-18 15:20] VITALS: BP 144/66; PULSE 72; TEMP 97.1
== END 2017-11-18 15:25 | disposition home or self-care (01) ==
LOC: EC 11:17
DX: N28.89 Other specified disorders of kidney and ureter (principal); R10.13 Epigastric pain; L03.116 Cellulitis of left lower limb; L02.214 Cutaneous abscess of groin; M47.817 Spondylosis without myelopathy or radiculopathy, lumbosacral region; K57.30 Diverticulosis of large intestine without perforation or abscess without bleeding; K43.9 Ventral hernia without obstruction or gangrene; I44.0 Atrioventricular block, first degree; I49.1 Atrial premature depolarization; R11.0 Nausea; M54.9 Dorsalgia, unspecified; E78.5 Hyperlipidemia, unspecified; I10 Essential (primary) hypertension; E11.9 Type 2 diabetes mellitus without complications; K21.9 Gastro-esophageal reflux disease without esophagitis; M19.90 Unspecified osteoarthritis, unspecified site; E66.01 Morbid (severe) obesity due to excess calories; Z79.01 Long term (current) use of anticoagulants; Z79.82 Long term (current) use of aspirin; Z79.84 Long term (current) use of oral hypoglycemic drugs; Z79.899 Other long term (current) drug therapy; Z88.0 Allergy status to penicillin; Z88.1 Allergy status to other antibiotic agents; Z86.718 Personal history of other venous thrombosis and embolism; Z86.711 Personal history of pulmonary embolism; Z90.49 Acquired absence of other specified parts of digestive tract; Z68.43 Body mass index [BMI] 50.0-59.9, adult
CPT/HCPCS: 36415; 93005; 80053; 82150; 83690; 85025; 81001; 87040; 74000; 74177; 99284; 96374; 96375; 96361; J2405; J1170; Q9967

== ENCOUNTER 2017-11-21 12:51 | Inpatient (IN) | payer MEDICARE ==
[2017-11-21] MEDS ORDERED: SODIUM CHLORIDE 0.9% 1,000 ML IV ONE ×2 (13:42→15:37)
--- NOTE | 2017-11-21 14:08 | XR ---
EXAMINATION TYPE: XR ankle complete RT DATE OF EXAM: 11/21/2017 COMPARISON: NONE HISTORY: Pain TECHNIQUE: 3 views FINDINGS: There is soft tissue swelling around the lower leg. There is a nondisplaced 1 cm avulsion t ype chip fracture of the distal fibula. There is no displacement. There is a plantar calcaneal spur. There is moderate arthritic changes in the midfoot with spur formation. IMPRESSION: Chip fracture of the distal fibula. Soft tissue swelling.
[2017-11-21 14:28] LABS: Basophils % (A) 0 %; Eosinophils # (A) 0.4 k/uL (0-0.7); Eosinophils % (A) 4 %; HCT 42.4 % (34.0-46.0); HGB 13.7 gm/dL (11.4-16.0); Lymphocytes # (A) 0.4 k/uL (1.0-4.8); Lymphocytes % (A) 4 %; MCH 28.4 pg (25.0-35.0); MCHC 32.4 g/dL (31.0-37.0); MCV 87.7 fL (80.0-100.0); Mean Platelet Volume 7.4; Monocytes # (A) 0.3 k/uL (0-1.0); Monocytes % (A) 3 %; Neutrophils # (A) 8.9 k/uL (1.3-7.7); Neutrophils % (A) 87 %; Platelet Count 242 k/uL (150-450); RBC 4.83 m/uL (3.80-5.40); RDW 14.7 % (11.5-15.5); WBC 10.2 k/uL (3.8-10.6)
[2017-11-21 14:30] LABS: Calcium 8.7 mg/dL (8.4-10.2); Potassium 3.5 mmol/L (3.5-5.1)
[2017-11-21 14:37] LABS: INR 2.8 (<1.2); Partial Thromboplastin Time 32.1 sec (22.0-30.0); Prothrombin Time 24.7 sec (9.0-12.0)
--- NOTE | 2017-11-21 15:00 | ED ---
General Adult HPI - General Chief complaint: Fall Stated complaint: cellulitis,vomiting Time Seen by Provider: 11/21/17 13:34 Source: patient, family Mode of arrival: wheelchair Limitations: physical limitation - History of Present Illness Initial comments: Sybil is an 82-year-old female with multiple medical comorbidities who was evaluated in the hospital last week and diagnosed with bilateral lower extremity cellulitis. She was prescribed by mouth Bactrim and discharged home. Patient reports that since starting the Bactrim she has been experiencing persistent nausea, vomiting area she report she has not been able to eat much and is uncertain if she's been able to hold down the antibiotics. She reports that she progressively become more weak and fatigued. Patient reports that this morning she lost her balance attempted to get in bed and rolled her right ankle. She reports that she's had persistent pain in her right ankle since that time. Family reports they became concerned the patient may be becoming dehydrated so they brought in the emergency department for evaluation. At that she feels very thirsty and hungry but is persistently nauseated and does not want to eat or drink. Denies any fevers, chills, chest pain or shortness breath, palpitations. - Related Data Home Medications Medication Instructions Recorded Confirmed Aspirin 81 mg PO DAILY 08/25/17 11/21/17 Cholecalciferol (Vitamin D3) 2,000 unit PO DAILY 08/25/17 11/21/17 [Vitamin D3] Hydrochlorothiazide [Hydrodiuril] 25 mg PO DAILY 08/25/17 11/21/17 Losartan Potassium [Cozaar] 100 mg PO DAILY 08/25/17 11/21/17 Metoprolol Tartrate [Lopressor] 50 mg PO BID 08/25/17 11/21/17 Omeprazole [PriLOSEC] 40 mg PO AC-SUPPER 08/25/17 11/21/17 Simvastatin [Zocor] 10 mg PO HS 08/25/17 11/21/17 Warfarin Sodium 2.5 mg PO MOTUWEFRSA 08/25/17 11/21/17 Warfarin [Coumadin] 1.25 mg PO SUTH 08/25/17 11/21/17 amLODIPine [Norvasc] 2.5 mg PO DAILY 08/25/17 11/21/17 glipiZIDE [Glucotrol] 5 mg PO AC-BID 08/25/17 11/21/17 metFORMIN HCL [Glucophage] 1,000 mg PO AC-BID 08/25/17 11/21/17 Sulfamethoxazole/Trimethoprim 1 tab PO BID 11/21/17 11/21/17 [Bactrim DS 800-160 mg] Allergies Allergy/AdvReac Type Severity Reaction Status Date / Time azithromycin Allergy Dyspnea & Verified 11/21/17 13:23 nausea ciprofloxacin [From Cipro] Allergy Dyspnea & Verified 11/21/17 13:23 nausea Penicillins Allergy Rash/Hives Verified 11/21/17 13:23 Review of Systems ROS Statement: Those systems with pertinent positive or pertinent negative responses have been documented in the HPI. ROS Other: All systems not noted in ROS Statement are negative. Constitutional: Reports: weakness (Generalized). Denies: fever, chills ENT: Denies: ear pain Respiratory: Denies: cough, dyspnea Cardiovascular: Denies: chest pain, palpitations Endocrine: Reports: fatigue Gastrointestinal: Reports: nausea, vomiting, diarrhea. Denies: abdominal pain Genitourinary: Reports: other (Decreased urine output). 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 History of Any Multi-Drug Resistant Organisms: None Reported Past Surgical History: Breast Surgery, Cholecystectomy, Joint Replacement, Orthopedic Surgery Additional Past Surgical History / Comment(s): thelma knee replac; L shoulder replac.; carpel tunnel vaginal duct cyst; benign breast surg; cataracts; retinal repair Past Anesthesia/Blood Transfusion Reactions: No Reported Reaction Past Psychological History: No Psychological Hx Reported Smoking Status: Never smoker Past Alcohol Use History: None Reported Past Drug Use History: None Reported - Past Family History Father Family Medical History: Deep Vein Thrombosis (DVT) General Exam - General Exam Comments Initial Comments: Morbidly obese Limitations: physical limitation General appearance: alert, in no apparent distress Head exam: Present: atraumatic, normocephalic Eye exam: Present: normal appearance ENT exam: Present: normal exam Neck exam: Present: normal inspection Respiratory exam: Absent: respiratory distress Cardiovascular Exam: Present: regular rate GI/Abdominal exam: Absent: soft, distended Rectal exam: Present: deferred Extremities exam: Present: pedal edema, other (Pain at the right ankle) Back exam: Present: other Neurological exam: Present: alert, oriented X3 Psychiatric exam: Present: normal affect Skin exam: Present: other (Skin changes consistent with chronic venous stasis, cellulitis circumferentially of the bilateral lower extremities with petechial changes) Course Vital Signs 11/21/17 11/21/17 11/21/17 13:11 14:33 16:07 Temperature 98 F 99.0 F Pulse Rate 71 86 83 Respiratory 16 18 20 Rate Blood Pressure 98/55 146/58 O2 Sat by Pulse 97 97 95 Oximetry Medical Decision Making - Medical Decision Making Patient was seen and evaluated, history was obtained from the patient, family and medical record Vital signs reveal no Sirs criteria History and physical exam are concerning for bilateral lower extremity cellulitis with failed outpatient treatment, nausea and vomiting resulting in dehydration as well as possible injury to the right ankle Labs and imaging were ordered Labs reveal an acute kidney injury with a creatinine of 1.6 with a baseline of less than 0.8, additional 1 L IV fluid bolus was ordered CBC is patient's baseline X-ray reveals a chip fracture of the distal fibula, this is a nonweightbearing bone and therefore there is no emergent orthopedic intervention required Considering the patient's multiple comorbidities, limited mobility, failed outpatient therapy for cellulitis and development of nausea, vomiting, diarrhea resulting in an acute kidney injury I do feel that the patient needs to be admitted to our hospital for IV antibiotics, IV fluid rehydration, antibiotics and possible evaluation by wound care for her lower extremities as well as physical therapy and occupational therapy to assist her in her activities of daily living. This plan was discussed with the patient and her family at bedside who agree very strongly. Care discussed with Dr. Gardner who accepts admission - Lab Data Result diagrams: 11/21/17 14:12 11/21/17 14:12 Lab Results 11/21/17 11/21/17 11/21/17 Range/Units 14:12 14:12 14:12 WBC 10.2 (3.8-10.6) k/uL RBC 4.83 (3.80-5.40) m/uL Hgb 13.7 (11.4-16.0) gm/dL Hct 42.4 (34.0-46.0) % MCV 87.7 (80.0-100.0) fL MCH 28.4 (25.0-35.0) pg MCHC 32.4 (31.0-37.0) g/dL RDW 14.7 (11.5-15.5) % Plt Count 242 (150-450) k/uL Neutrophils % 87 % Lymphocytes % 4 % Monocytes % 3 % Eosinophils % 4 % Basophils % 0 % Neutrophils # 8.9 H (1.3-7.7) k/uL Lymphocytes # 0.4 L (1.0-4.8) k/uL Monocytes # 0.3 (0-1.0) k/uL Eosinophils # 0.4 (0-0.7) k/uL Basophils # 0.0 (0-0.2) k/uL PT 24.7 H (9.0-12.0) sec INR 2.8 H (<1.2) APTT 32.1 H (22.0-30.0) sec Sodium 135 L (137-145) mmol/L Potassium 3.5 (3.5-5.1) mmol/L Chloride 94 L (98-107) mmol/L Carbon Dioxide 28 (22-30) mmol/L Anion Gap 13 mmol/L BUN 24 H (7-17) mg/dL Creatinine 1.60 H (0.52-1.04) mg/dL Est GFR (MDRD) Af Amer 38 (>60 ml/min/1.73 sqM) Est GFR (MDRD) Non-Af 31 (>60 ml/min/1.73 sqM) Glucose 58 L (74-99) mg/dL POC Glucose (mg/dL) (75-99) mg/dL POC Glu Criminalist ID Calcium 8.7 (8.4-10.2) mg/dL 11/21/17 Range/Units 16:36 WBC (3.8-10.6) k/uL RBC (3.80-5.40) m/uL Hgb (11.4-16.0) gm/dL Hct (34.0-46.0) % MCV (80.0-100.0) fL MCH (25.0-35.0) pg MCHC (31.0-37.0) g/dL RDW (11.5-15.5) % Plt Count (150-450) k/uL Neutrophils % % Lymphocytes % % Monocytes % % Eosinophils % % Basophils % % Neutrophils # (1.3-7.7) k/uL Lymphocytes # (1.0-4.8) k/uL Monocytes # (0-1.0) k/uL Eosinophils # (0-0.7) k/uL Basophils # (0-0.2) k/uL PT (9.0-12.0) sec INR (<1.2) APTT (22.0-30.0) sec Sodium (137-145) mmol/L Potassium (3.5-5.1) mmol/L Chloride (98-107) mmol/L Carbon Dioxide (22-30) mmol/L Anion Gap mmol/L BUN (7-17) mg/dL Creatinine (0.52-1.04) mg/dL Est GFR (MDRD) Af Amer (>60 ml/min/1.73 sqM) Est GFR (MDRD) Non-Af (>60 ml/min/1.73 sqM) Glucose (74-99) mg/dL POC Glucose (mg/dL) 54 L (75-99) mg/dL POC Glu Criminalist ID Lovely Zhangi Calcium (8.4-10.2) mg/dL Disposition Clinical Impression: LEORA (acute kidney injury), Cellulitis, Nausea and vomiting, Impaired mobility Disposition: ADMITTED IP TO THIS [facility] Condition: Fair Referrals: Lexis Mcdowell MD [Primary Care Provider] - 1-2 days Time of Disposition: 16:28 Decision Time: 16:28
[2017-11-21] MEDS ORDERED: NALOXONE 0.4 MG/ML 1 ML VIAL IV PRN (16:03)
[2017-11-21] MEDS ORDERED: SODIUM CHLORIDE 0.9% 1,000 ML IV SCH (16:15)
[2017-11-21] MEDS ORDERED: VANCOMYCIN IV PER PHARMACY 1 EACH MISC MISCELLANE PRN (16:28)
[2017-11-21 16:46] LABS: Glucose,Whole Blood 54 mg/dL (75-99)
[2017-11-21] MEDS ORDERED: VANCOMYCIN 2,500 MG in SODIUM CHLORIDE 0.9% 500 ML IVPB ONE (17:00)
--- NOTE | 2017-11-21 17:08 | P.HPIM ---
History of Present Illness H&P Date: 11/21/17 Chief Complaint: Fall and weakness 82-year-old female with multiple medical comorbidities who was evaluated in the hospital last [place] and diagnosed with bilateral lower extremity and small right groin cellulitis. She was prescribed Bactrim and discharged home. Patient reports that since starting the Bactrim she has been experiencing persistent nausea, vomiting as well as diarrhea. She reports she has not been able to eat or drink much and is uncertain if she's been able to hold down the antibiotic. She reports that she progressively become more weak and fatigued. Patient reports that this morning she lost her balance when she attempted to get in bed and fell. She reports that she's had persistent pain in her right ankle since that time. She also reported fevers and chills. She denied any trauma to her legs before the cellulitis started. Patient has a chronic bilateral lower extremities swelling and skin thickness and she actually had cellulitis 5 times in the past. She has some shortness of breath but denied any chest pain. She had a cholecystectomy about 2 months ago and since then she has been having intermittent nausea and vomiting. She follows up with her surgeon and he told her that everything was in the right direction. 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 Morbid obesity. History of Any Multi-Drug Resistant Organisms: None Reported Past Surgical History: Breast Surgery, Cholecystectomy, Joint Replacement, Orthopedic Surgery Additional Past Surgical History / Comment(s): thelma knee replac; L shoulder replac.; carpel tunnel vaginal duct cyst; benign breast surg; cataracts; retinal repair Past Anesthesia/Blood Transfusion Reactions: No Reported Reaction Past Psychological History: No Psychological Hx Reported Smoking Status: Never smoker Past Alcohol Use History: None Reported Past Drug Use History: None Reported - Past Family History Father Family Medical History: Deep Vein Thrombosis (DVT) Medications and Allergies Home Medications Medication Instructions Recorded Confirmed Type Aspirin 81 mg PO DAILY 08/25/17 11/21/17 History Cholecalciferol (Vitamin D3) 2,000 unit PO DAILY 08/25/17 11/21/17 History [Vitamin D3] Hydrochlorothiazide [Hydrodiuril] 25 mg PO DAILY 08/25/17 11/21/17 History Losartan Potassium [Cozaar] 100 mg PO DAILY 08/25/17 11/21/17 History Metoprolol Tartrate [Lopressor] 50 mg PO BID 08/25/17 11/21/17 History Omeprazole [PriLOSEC] 40 mg PO AC-SUPPER 08/25/17 11/21/17 History Simvastatin [Zocor] 10 mg PO HS 08/25/17 11/21/17 History Warfarin Sodium 2.5 mg PO MOTUWEFRSA 08/25/17 11/21/17 History Warfarin [Coumadin] 1.25 mg PO SUTH 08/25/17 11/21/17 History amLODIPine [Norvasc] 2.5 mg PO DAILY 08/25/17 11/21/17 History glipiZIDE [Glucotrol] 5 mg PO AC-BID 08/25/17 11/21/17 History metFORMIN HCL [Glucophage] 1,000 mg PO AC-BID 08/25/17 11/21/17 History Sulfamethoxazole/Trimethoprim 1 tab PO BID 11/21/17 11/21/17 History [Bactrim DS 800-160 mg] Allergies Allergy/AdvReac Type Severity Reaction Status Date / Time azithromycin Allergy Dyspnea & Verified 11/21/17 13:23 nausea ciprofloxacin [From Cipro] Allergy Dyspnea & Verified 11/21/17 13:23 nausea Penicillins Allergy Rash/Hives Verified 11/21/17 13:23 Physical Exam Vitals: Vital Signs Temp Pulse Resp BP Pulse Ox 11/21/17 16:07 99.0 F 83 20 146/58 95 11/21/17 14:33 86 18 97 11/21/17 13:11 98 F 71 16 98/55 97 Intake and Output 11/21/17 11/21/17 11/21/17 06:59 14:59 22:59 Other: Weight 145.15 kg Patient Weight 11/22/17 06:59 Weight 145.15 kg Constitutional: No acute distress, conversant, pleasant Eyes:Anicteric sclerae, moist conjunctiva, no lid-lag, PERRLA, ENMT: Oropharynx clear, no erythema, exudates Neck: Supple, FROM, no masses, or JVD, No carotid bruits, No thyromegaly Lungs: Clear to auscultation, Clear to percussion, Normal respiratory effort, no accessory muscle use Cardiovascular: Heart regular in rate and rhythm, No murmurs, gallops, or rubs, No peripheral edema Abdominal: Soft, Nontender, no guarding, rebound or rigidity, Normoactive bowel sounds, No hepatomegaly, No splenomegaly, No palpable mass Skin: Bilateral lower extremities skin is thick, warm and erythematous. It is slightly tender to touch on the right ankle area. Right groin erythema with a small hole with very minimal purulent discharge. No subcutaneous nodules, No rash, lesions, No ulcers Extremities: No digital cyanosis, No clubbing, Pedal pulses intact and symmetrical, Radial pulses intact and symmetrical, No calf tenderness Psychiatric: Alert and oriented to person, place and time, appropriate affect, intact judgement Neuro: Muscles Strength 5/5 in all 4 extremities, Sensation to light touch grossly present throughout, Cranial nerves II-XII grossly intact, no focal sensory deficits Results CBC & Chem 7: 11/21/17 14:12 11/21/17 14:12 Labs: Abnormal Lab Results - Last 24 Hours (Table) 11/21/17 11/21/17 11/21/17 Range/Units 14:12 14:12 14:12 Neutrophils # 8.9 H (1.3-7.7) k/uL Lymphocytes # 0.4 L (1.0-4.8) k/uL PT 24.7 H (9.0-12.0) sec INR 2.8 H (<1.2) APTT 32.1 H (22.0-30.0) sec Sodium 135 L (137-145) mmol/L Chloride 94 L (98-107) mmol/L BUN 24 H (7-17) mg/dL Creatinine 1.60 H (0.52-1.04) mg/dL Glucose 58 L (74-99) mg/dL POC Glucose (mg/dL) (75-99) mg/dL 11/21/17 Range/Units 16:36 Neutrophils # (1.3-7.7) k/uL Lymphocytes # (1.0-4.8) k/uL PT (9.0-12.0) sec INR (<1.2) APTT (22.0-30.0) sec Sodium (137-145) mmol/L Chloride (98-107) mmol/L BUN (7-17) mg/dL Creatinine (0.52-1.04) mg/dL Glucose (74-99) mg/dL POC Glucose (mg/dL) 54 L (75-99) mg/dL Assessment and Plan Plan: #1 Acute bilateral lower extremity cellulitis involving more than 50% of the lower extremities/Right groin cellulitis: Admit to [facility] Labs and imaging studies reviewed Start vancomycin pharmacy dosing If no improvement by tomorrow, would add gram-negative coverage Add nystatin cream to the right groin 3 times a day Wound care consult #2 Acute renal failure: Baseline creatinine 0.8, currently 1.6. Likely secondary to Bactrim in conjunction with dehydration secondary to the diarrhea and the vomiting. IV fluids Hold Bactrim Avoid nephrotoxic medications Follow up creatinine in the morning #3 Diabetes Mellitus 2, Deep Vein Thrombosis (DVT)/Pulmonary Embolus (PE), GERD/ Reflux, Hyperlipidemia, benign hypertension, Osteoarthritis (OA): Start sliding scale insulin moderate dose with blood sugar checks every before meals and at bedtime Continue all medications All stable #4 DVT prophylaxis: Already on Coumadin
--- NOTE | 2017-11-21 17:30 | XR ---
EXAMINATION TYPE: XR Hip RT and AP Pelvis DATE OF EXAM: 11/21/2017 COMPARISON: NONE HISTORY: Hip pain after a fall TECHNIQUE: 3 views FINDINGS: Pelvic ring is intact. There is some shortening of the right femoral neck that is suggestive of an im pacted subcapital fracture. There is no dislocation. There is spurring of the acetabulum. There is mo derately severe osteoarthritis in the left hip joint. CONCLUSION: Shortening of the femoral neck suggestive of a subcapital fracture. This appearance however is also p resent on the CT scan of 11/18/2017 and is probably a chronic deformity. CT scan of the pelvis would be helpful for definitive evaluation.
--- NOTE | 2017-11-21 17:31 | XR ---
EXAMINATION TYPE: XR Femur RT 1 View DATE OF EXAM: 11/21/2017 COMPARISON: NONE HISTORY: Fall and pain TECHNIQUE: 2 views FINDINGS: 2 frontal views of the right femur were obtained that show some shortening of the femoral n mikhail suggestive of subcapital fracture. There is a knee prosthesis. Components appear in anatomic posi tion. IMPRESSION: Some shortening of the femoral neck as above could relate to a chronic fracture.
[2017-11-21 17:43] LABS: Glucose,Whole Blood 74 mg/dL (75-99)
[2017-11-21] MEDS: INSULIN ASPART 100 UNIT/ML 1 ML 10 ML VIAL SQ SCH ×2 (17:44→22:42)
[2017-11-21] MEDS: WARFARIN 2.5 MG TAB PO SCH ×2 (17:52→18:42)
[2017-11-21] MEDS: ONDANSETRON 4 MG/2 ML VIAL IVP PRN (18:41)
[2017-11-21] MEDS: PANTOPRAZOLE 40 MG TABLET PO SCH (18:42)
[2017-11-21 20:25] LABS: Appearance,Urine Cloudy (Clear); Bacteria,Urine Few /hpf; Bilirubin,Urine Negative (Negative); Blood,Urine Moderate (Negative); Color,Urine Yellow; Glucose,Urine (UA) Negative (Negative); Hyaline Casts,Urine 6 /lpf (0-2); Ketones,Urine Negative (Negative); Leukocyte Esterase,Urine Negative (Negative); Mucus,Urine Few /hpf; Nitrite,Urine Negative (Negative); PH, Urine 5.5 (5.0-8.0); Protein,Urine 1+ (Negative); RBC,Urine 13 /hpf (0-5); Specific Gravity,Urine 1.018 (1.001-1.035); Squamous Epithelial Cell,Urine 22 /hpf (0-4); Urobilinogen,Urine <2.0 mg/dL (<2.0); WBC,Urine 6 /hpf (0-5)
[2017-11-21 20:42] LABS: Glucose,Whole Blood 64 mg/dL (75-99)
[2017-11-21] MEDS: ATORVASTATIN 10 MG TAB PO SCH (21:02)
[2017-11-21] MEDS: FAMOTIDINE 20 MG TAB PO SCH (21:02)
[2017-11-21] MEDS: NYSTATIN 100,000UNIT/GM CREAM 30 GM TUBE TOPICAL SCH (21:02)
[2017-11-21] MEDS: METOPROLOL TARTRATE 50 MG TAB PO SCH (21:02)
[2017-11-21 21:16] LABS: Glucose,Whole Blood 74 mg/dL (75-99)
[2017-11-21 21:55] LABS: Glucose,Whole Blood 149 mg/dL (75-99)
[2017-11-22] MEDS: DEXTROSE 5%-0.45% NACL 1,000 ML IV SCH ×4 (00:09→21:11)
[2017-11-22] MEDS: PROMETHAZINE INJ 6.25 MG in SODIUM CHLORIDE 0.9% 50 ML IVPB PRN ×2 (00:20→10:56)
--- NOTE | 2017-11-22 00:22 | XR ---
EXAMINATION TYPE: XR chest 1V portable DATE OF EXAM: 11/22/2017 COMPARISON: 08/25/2017 HISTORY: Short of breath TECHNIQUE: Single frontal view of the chest is obtained. FINDINGS: There is no heart failure nor confluent pneumonic infiltrate. Thoracic aorta is atheromato us. Costophrenic angles are clear. There is left shoulder prosthesis. IMPRESSION: No active cardiopulmonary disease. No change.
[2017-11-22] MEDS: ACETAMINOPHEN TAB 325 MG TAB PO PRN ×3 (00:55→20:09)
[2017-11-22 01:55] LABS: Glucose,Whole Blood 70 mg/dL (75-99)
[2017-11-22 04:33] LABS: Glucose,Whole Blood 70 mg/dL (75-99)
[2017-11-22] MEDS: INSULIN ASPART 100 UNIT/ML 1 ML 10 ML VIAL SQ SCH ×4 (07:17→21:05)
[2017-11-22 07:32] LABS: Glucose,Whole Blood 58 mg/dL (75-99)
[2017-11-22 07:49] LABS: Glucose,Whole Blood 63 mg/dL (75-99)
[2017-11-22] MEDS: ASPIRIN 81 MG PO SCH (08:10)
[2017-11-22] MEDS: NYSTATIN 100,000UNIT/GM CREAM 30 GM TUBE TOPICAL SCH ×3 (08:13→21:11)
[2017-11-22] MEDS: ONDANSETRON 4 MG/2 ML VIAL IVP PRN ×2 (08:35→16:19)
[2017-11-22 08:37] LABS: Glucose,Whole Blood 75 mg/dL (75-99)
[2017-11-22 08:44] LABS: Glucose,Whole Blood 90 mg/dL (75-99)
[2017-11-22 08:48] LABS: Basophils % (A) 0 %; Eosinophils # (A) 0.3 k/uL (0-0.7); Eosinophils % (A) 6 %; HCT 38.9 % (34.0-46.0); HGB 12.7 gm/dL (11.4-16.0); Lymphocytes # (A) 0.5 k/uL (1.0-4.8); Lymphocytes % (A) 11 %; MCH 28.7 pg (25.0-35.0); MCHC 32.6 g/dL (31.0-37.0); MCV 88.1 fL (80.0-100.0); Mean Platelet Volume 9.4; Monocytes # (A) 0.3 k/uL (0-1.0); Monocytes % (A) 6 %; Neutrophils # (A) 3.6 k/uL (1.3-7.7); Neutrophils % (A) 76 %; Platelet Count 149 k/uL (150-450); RBC 4.41 m/uL (3.80-5.40); RDW 15.8 % (11.5-15.5); WBC 4.7 k/uL (3.8-10.6)
[2017-11-22 08:58] LABS: Albumin 2.9 g/dL (3.5-5.0); Calcium 8.1 mg/dL (8.4-10.2); Magnesium 1.4 mg/dL (1.6-2.3); Phosphorus 3.5 mg/dL (2.5-4.5); Potassium 3.4 mmol/L (3.5-5.1); Total Bilirubin 0.5 mg/dL (0.2-1.3)
[2017-11-22] MEDS ORDERED: amLODIPine 2.5 MG TAB PO SCH (09:00)
[2017-11-22] MEDS ORDERED: LOSARTAN 50 MG TAB PO SCH (09:00)
[2017-11-22] MEDS ORDERED: HYDROCHLOROTHIAZIDE 25 MG TAB PO SCH (09:00)
[2017-11-22] MEDS: METOPROLOL TARTRATE 50 MG TAB PO SCH (09:13)
[2017-11-22] MEDS ORDERED: POTASSIUM CHLORIDE ER 20 MEQ TAB.ER PO STA (11:03)
--- NOTE | 2017-11-22 11:49 | P.PN ---
Subjective Progress Note Date: 11/22/17 Principal diagnosis: Fall, legs redness Patient has been throwing up since this morning. She threw up multiple times. She has been ambulating out of her bed without pain in the legs. She had a fever last night. Objective - Vital Signs Vital signs: Vital Signs Temp 98.7 F 11/22/17 07:00 Pulse 69 11/22/17 07:00 Resp 18 11/22/17 07:00 BP 93/42 11/22/17 07:00 Pulse Ox 93 L 11/22/17 07:00 Intake & Output 11/21/17 11/22/17 11/22/17 18:59 06:59 18:59 Intake Total 2000 Output Total 150 400 Balance 1999 -150 -400 Weight 145.15 kg 145.15 kg Intake: Amount of Fluid Infused ( 2000 ml) Output: Urine 150 Emesis 400 Other: # Voids 3 - Exam Constitutional: No acute distress, conversant, pleasant Eyes:Anicteric sclerae, moist conjunctiva, no lid-lag, PERRLA, ENMT: Oropharynx clear, no erythema, exudates Neck: Supple, FROM, no masses, or JVD, No carotid bruits, No thyromegaly Lungs: Clear to auscultation, Clear to percussion, Normal respiratory effort, no accessory muscle use Cardiovascular: Heart regular in rate and rhythm, No murmurs, gallops, or rubs, No peripheral edema Abdominal: Soft, Nontender, no guarding, rebound or rigidity, Normoactive bowel sounds, No hepatomegaly, No splenomegaly, No palpable mass Skin: Bilateral lower extremities skin is thick, warm and erythematous--- improved today. It is slightly tender to touch on the right ankle area. Right groin erythema with a small hole with very minimal purulent discharge. No subcutaneous nodules, No rash, lesions, No ulcers Extremities: No digital cyanosis, No clubbing, Pedal pulses intact and symmetrical, Radial pulses intact and symmetrical, No calf tenderness Psychiatric: Alert and oriented to person, place and time, appropriate affect, intact judgement Neuro: Muscles Strength 5/5 in all 4 extremities, Sensation to light touch grossly present throughout, Cranial nerves II-XII grossly intact, no focal sensory deficits - Labs CBC & Chem 7: 11/22/17 07:48 11/22/17 07:48 Labs: Abnormal Lab Results - Last 24 Hours (Table) 11/21/17 11/21/17 11/21/17 Range/Units 14:12 14:12 14:12 RDW (11.5-15.5) % Plt Count (150-450) k/uL Neutrophils # 8.9 H (1.3-7.7) k/uL Lymphocytes # 0.4 L (1.0-4.8) k/uL PT 24.7 H (9.0-12.0) sec INR 2.8 H (<1.2) APTT 32.1 H (22.0-30.0) sec Sodium 135 L (137-145) mmol/L Potassium (3.5-5.1) mmol/L Chloride 94 L (98-107) mmol/L BUN 24 H (7-17) mg/dL Creatinine 1.60 H (0.52-1.04) mg/dL Glucose 58 L (74-99) mg/dL POC Glucose (mg/dL) (75-99) mg/dL Calcium (8.4-10.2) mg/dL Magnesium (1.6-2.3) mg/dL AST (14-36) U/L Total Protein (6.3-8.2) g/dL Albumin (3.5-5.0) g/dL Urine Appearance (Clear) Urine Protein (Negative) Urine Blood (Negative) Urine RBC (0-5) /hpf Urine WBC (0-5) /hpf Ur Squamous Epith Cells (0-4) /hpf Urine Bacteria (None) /hpf Hyaline Casts (0-2) /lpf Urine Mucus (None) /hpf 11/21/17 11/21/17 11/21/17 Range/Units 16:36 17:25 20:00 RDW (11.5-15.5) % Plt Count (150-450) k/uL Neutrophils # (1.3-7.7) k/uL Lymphocytes # (1.0-4.8) k/uL PT (9.0-12.0) sec INR (<1.2) APTT (22.0-30.0) sec Sodium (137-145) mmol/L Potassium (3.5-5.1) mmol/L Chloride (98-107) mmol/L BUN (7-17) mg/dL Creatinine (0.52-1.04) mg/dL Glucose (74-99) mg/dL POC Glucose (mg/dL) 54 L 74 L (75-99) mg/dL Calcium (8.4-10.2) mg/dL Magnesium (1.6-2.3) mg/dL AST (14-36) U/L Total Protein (6.3-8.2) g/dL Albumin (3.5-5.0) g/dL Urine Appearance Cloudy H (Clear) Urine Protein 1+ H (Negative) Urine Blood Moderate H (Negative) Urine RBC 13 H (0-5) /hpf Urine WBC 6 H (0-5) /hpf Ur Squamous Epith Cells 22 H (0-4) /hpf Urine Bacteria Few H (None) /hpf Hyaline Casts 6 H (0-2) /lpf Urine Mucus Few H (None) /hpf 11/21/17 11/21/17 11/21/17 Range/Units 20:40 21:14 21:53 RDW (11.5-15.5) % Plt Count (150-450) k/uL Neutrophils # (1.3-7.7) k/uL Lymphocytes # (1.0-4.8) k/uL PT (9.0-12.0) sec INR (<1.2) APTT (22.0-30.0) sec Sodium (137-145) mmol/L Potassium (3.5-5.1) mmol/L Chloride (98-107) mmol/L BUN (7-17) mg/dL Creatinine (0.52-1.04) mg/dL Glucose (74-99) mg/dL POC Glucose (mg/dL) 64 L 74 L 149 H (75-99) mg/dL Calcium (8.4-10.2) mg/dL Magnesium (1.6-2.3) mg/dL AST (14-36) U/L Total Protein (6.3-8.2) g/dL Albumin (3.5-5.0) g/dL Urine Appearance (Clear) Urine Protein (Negative) Urine Blood (Negative) Urine RBC (0-5) /hpf Urine WBC (0-5) /hpf Ur Squamous Epith Cells (0-4) /hpf Urine Bacteria (None) /hpf Hyaline Casts (0-2) /lpf Urine Mucus (None) /hpf 11/22/17 11/22/17 11/22/17 Range/Units 01:53 04:31 07:14 RDW (11.5-15.5) % Plt Count (150-450) k/uL Neutrophils # (1.3-7.7) k/uL Lymphocytes # (1.0-4.8) k/uL PT (9.0-12.0) sec INR (<1.2) APTT (22.0-30.0) sec Sodium (137-145) mmol/L Potassium (3.5-5.1) mmol/L Chloride (98-107) mmol/L BUN (7-17) mg/dL Creatinine (0.52-1.04) mg/dL Glucose (74-99) mg/dL POC Glucose (mg/dL) 70 L 70 L 58 L (75-99) mg/dL Calcium (8.4-10.2) mg/dL Magnesium (1.6-2.3) mg/dL AST (14-36) U/L Total Protein (6.3-8.2) g/dL Albumin (3.5-5.0) g/dL Urine Appearance (Clear) Urine Protein (Negative) Urine Blood (Negative) Urine RBC (0-5) /hpf Urine WBC (0-5) /hpf Ur Squamous Epith Cells (0-4) /hpf Urine Bacteria (None) /hpf Hyaline Casts (0-2) /lpf Urine Mucus (None) /hpf 11/22/17 11/22/17 11/22/17 Range/Units 07:44 07:48 07:48 RDW 15.8 H (11.5-15.5) % Plt Count 149 L (150-450) k/uL Neutrophils # (1.3-7.7) k/uL Lymphocytes # 0.5 L (1.0-4.8) k/uL PT (9.0-12.0) sec INR (<1.2) APTT (22.0-30.0) sec Sodium 135 L (137-145) mmol/L Potassium 3.4 L (3.5-5.1) mmol/L Chloride (98-107) mmol/L BUN 25 H (7-17) mg/dL Creatinine 1.27 H (0.52-1.04) mg/dL Glucose 65 L (74-99) mg/dL POC Glucose (mg/dL) 63 L (75-99) mg/dL Calcium 8.1 L (8.4-10.2) mg/dL Magnesium 1.4 L (1.6-2.3) mg/dL AST 39 H (14-36) U/L Total Protein 6.0 L (6.3-8.2) g/dL Albumin 2.9 L (3.5-5.0) g/dL Urine Appearance (Clear) Urine Protein (Negative) Urine Blood (Negative) Urine RBC (0-5) /hpf Urine WBC (0-5) /hpf Ur Squamous Epith Cells (0-4) /hpf Urine Bacteria (None) /hpf Hyaline Casts (0-2) /lpf Urine Mucus (None) /hpf Assessment and Plan Plan: #1 Acute bilateral lower extremity cellulitis involving more than 50% of the lower extremities/Right groin cellulitis: Labs and imaging studies reviewed Improved Continue vancomycin pharmacy dosing, nystatin cream to the right groin 3 times a day Wound care with local silvadine #2 Acute renal failure: Improving Likely secondary to Bactrim in conjunction with dehydration secondary to the diarrhea and the vomiting. IV fluids Switched to D5 half normal saline last night due to hypoglycemia. D/Guilherme Bactrim Avoid nephrotoxic medications Follow up creatinine in the morning #3 Nausea and vomiting: Likely sec to all of the above, +/- bactrim side effect Zofran and phenergan to alternate q3hrs. #4 Hypotension: Likely sec to dehydration IV fluids Monitor BP Hold HTN meds #5 Diabetes Mellitus 2 with hypoglycemia Likely sec to not eating while the blood glucose lowering meds are still in her system, As above IV fluids switched to D5 half normal saline. Hold oral hypoglycemics. #6 Subtle subcapital fracture of the right hip: Consult ortho No symptoms. 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
[2017-11-22] MEDS ORDERED: VANCOMYCIN 2,000 MG in SODIUM CHLORIDE 0.9% 500 ML IVPB SCH (12:00)
[2017-11-22 12:07] LABS: Glucose,Whole Blood 83 mg/dL (75-99)
[2017-11-22] MEDS: MAG HYDROX/AL HYDROX/SIMETH 30 ML CUP PO PRN (12:40)
[2017-11-22] MEDS: CHOLECALCIFEROL 1,000 UNIT TAB PO SCH (12:42)
--- NOTE | 2017-11-22 14:18 | P.CNOR ---
History of Present Illness - [facility] Consult date: 11/22/17 Consult reason: joint pain History of present illness: This is a 82-year-old female who is seen and evaluated to [facility] emergency room on 11/21/2017. Patient had a fall in her home early that morning. She was unable to weight-bear after the injury, she was brought to the hospital by EMS. Multiple imaging and lab tests were done upon arrival. Initial complaints were of the right ankle, x-ray revealed possible lateral malleolus avulsion fracture. Patient was recently at the hospital on 2016 with regards to abdominal discomfort along with nausea and vomiting. A CT of the abdomen was done. Patient had gallbladder surgery back in September 2017 , and her and the family state she hasn't felt the greatest ever since. During the current hospital stay, she did have some complaints of right leg pain. At the previous admission she was noted to have bilateral lower extremity cellulitis, she was started on oral antibiotics. Patient has a history of lower extremity cellulitis, and also history of chronic venous stasis. An x- ray was done of the right hip, there were questions of a possible impacted subcapital fracture, our orthopedic team was then consult. Patient was examined today at bedside, family was present. Patient denies any previous history involving the right hip. She has history of bilateral total knee replacements done back in late early 1999. She also has a previous left total shoulder arthroplasty. The operating surgeon is not at this facility. She states that when she fell a few days ago, she initially twisted the ankle and did fall on that right side. She denies any significant right hip pain at this time. She notes some thigh discomfort with motion. She denies any pain involving the left lower extremity at this time. She denies any headaches, lightheadedness, chest pain or shortness of breath. Pertinent past medical history includes both DVT and pulmonary embolisms. Review of Systems Constitutional: Reports as per HPI Past Medical History Past Medical History: Diabetes Mellitus, Deep Vein Thrombosis (DVT), GERD/Reflux , Hyperlipidemia, Hypertension, Osteoarthritis (OA), Pulmonary Embolus (PE), Renal Disease Additional Past Medical History / Comment(s): Hx of PE & DVT over 11 yrs ago. Morbid obesity, mass on right kidney, cellulitis BLE, fall at home History of Any Multi-Drug Resistant Organisms: None Reported Past Surgical History: Breast Surgery, Cholecystectomy, Joint Replacement, Orthopedic Surgery Additional Past Surgical History / Comment(s): thelma knee replac; L shoulder replac.; carpel tunnel vaginal duct cyst; benign breast surg; cataracts; retinal repair left eye Past Anesthesia/Blood Transfusion Reactions: No Reported Reaction Past Psychological History: No Psychological Hx Reported Smoking Status: Never smoker Past Alcohol Use History: None Reported Past Drug Use History: None Reported - Past Family History Father Family Medical History: Deep Vein Thrombosis (DVT) Medications and Allergies Home Medications Medication Instructions Recorded Confirmed Type Aspirin 81 mg PO DAILY 08/25/17 11/21/17 History Cholecalciferol (Vitamin D3) 2,000 unit PO DAILY 08/25/17 11/21/17 History [Vitamin D3] Hydrochlorothiazide [Hydrodiuril] 25 mg PO DAILY 08/25/17 11/21/17 History Losartan Potassium [Cozaar] 100 mg PO DAILY 08/25/17 11/21/17 History Metoprolol Tartrate [Lopressor] 50 mg PO BID 08/25/17 11/21/17 History Omeprazole [PriLOSEC] 40 mg PO AC-SUPPER 08/25/17 11/21/17 History Simvastatin [Zocor] 10 mg PO HS 08/25/17 11/21/17 History Warfarin Sodium 2.5 mg PO MOTUWEFRSA 08/25/17 11/21/17 History Warfarin [Coumadin] 1.25 mg PO SUTH 08/25/17 11/21/17 History amLODIPine [Norvasc] 2.5 mg PO DAILY 08/25/17 11/21/17 History glipiZIDE [Glucotrol] 5 mg PO AC-BID 08/25/17 11/21/17 History metFORMIN HCL [Glucophage] 1,000 mg PO AC-BID 08/25/17 11/21/17 History Sulfamethoxazole/Trimethoprim 1 tab PO BID 11/21/17 11/21/17 History [Bactrim DS 800-160 mg] Allergies Allergy/AdvReac Type Severity Reaction Status Date / Time azithromycin Allergy Dyspnea & Verified 11/21/17 13:23 nausea ciprofloxacin [From Cipro] Allergy Dyspnea & Verified 11/21/17 13:23 nausea Penicillins Allergy Rash/Hives Verified 11/21/17 13:23 Physical Examination Right lower extremity: No obvious shortening of the right lower extremity when compared to the contralateral side. No obvious external and internal rotation noted. Surgical scar present over the anterior aspect of the knee. Chronic venous stasis changes noted throughout the right lower extremity distal to the knee. Active cellulitic component present. No open lesions are visualized, but multiple areas of erythema and soft tissue swelling. Logroll maneuver of the right lower extremity reproduces no significant groin pain. I can passively flex to 90 along with internal rotation and reproduces no significant groin pain. Plantar flexion and dorsiflexion are intact. Sensation to light touch throughout the right lower extremity is intact. Calf is soft, no tenderness with palpation. Tenderness with palpation along the lateral malleolus of the right ankle. Results - Labs Labs: Abnormal Lab Results - Last 24 Hours (Table) 11/21/17 11/21/17 11/21/17 Range/Units 14:12 14:12 14:12 RDW (11.5-15.5) % Plt Count (150-450) k/uL Neutrophils # 8.9 H (1.3-7.7) k/uL Lymphocytes # 0.4 L (1.0-4.8) k/uL PT 24.7 H (9.0-12.0) sec INR 2.8 H (<1.2) APTT 32.1 H (22.0-30.0) sec Sodium 135 L (137-145) mmol/L Potassium (3.5-5.1) mmol/L Chloride 94 L (98-107) mmol/L BUN 24 H (7-17) mg/dL Creatinine 1.60 H (0.52-1.04) mg/dL Glucose 58 L (74-99) mg/dL POC Glucose (mg/dL) (75-99) mg/dL Calcium (8.4-10.2) mg/dL Magnesium (1.6-2.3) mg/dL AST (14-36) U/L Total Protein (6.3-8.2) g/dL Albumin (3.5-5.0) g/dL Urine Appearance (Clear) Urine Protein (Negative) Urine Blood (Negative) Urine RBC (0-5) /hpf Urine WBC (0-5) /hpf Ur Squamous Epith Cells (0-4) /hpf Urine Bacteria (None) /hpf Hyaline Casts (0-2) /lpf Urine Mucus (None) /hpf 11/21/17 11/21/17 11/21/17 Range/Units 16:36 17:25 20:00 RDW (11.5-15.5) % Plt Count (150-450) k/uL Neutrophils # (1.3-7.7) k/uL Lymphocytes # (1.0-4.8) k/uL PT (9.0-12.0) sec INR (<1.2) APTT (22.0-30.0) sec Sodium (137-145) mmol/L Potassium (3.5-5.1) mmol/L Chloride (98-107) mmol/L BUN (7-17) mg/dL Creatinine (0.52-1.04) mg/dL Glucose (74-99) mg/dL POC Glucose (mg/dL) 54 L 74 L (75-99) mg/dL Calcium (8.4-10.2) mg/dL Magnesium (1.6-2.3) mg/dL AST (14-36) U/L Total Protein (6.3-8.2) g/dL Albumin (3.5-5.0) g/dL Urine Appearance Cloudy H (Clear) Urine Protein 1+ H (Negative) Urine Blood Moderate H (Negative) Urine RBC 13 H (0-5) /hpf Urine WBC 6 H (0-5) /hpf Ur Squamous Epith Cells 22 H (0-4) /hpf Urine Bacteria Few H (None) /hpf Hyaline Casts 6 H (0-2) /lpf Urine Mucus Few H (None) /hpf 11/21/17 11/21/17 11/21/17 Range/Units 20:40 21:14 21:53 RDW (11.5-15.5) % Plt Count (150-450) k/uL Neutrophils # (1.3-7.7) k/uL Lymphocytes # (1.0-4.8) k/uL PT (9.0-12.0) sec INR (<1.2) APTT (22.0-30.0) sec Sodium (137-145) mmol/L Potassium (3.5-5.1) mmol/L Chloride (98-107) mmol/L BUN (7-17) mg/dL Creatinine (0.52-1.04) mg/dL Glucose (74-99) mg/dL POC Glucose (mg/dL) 64 L 74 L 149 H (75-99) mg/dL Calcium (8.4-10.2) mg/dL Magnesium (1.6-2.3) mg/dL AST (14-36) U/L Total Protein (6.3-8.2) g/dL Albumin (3.5-5.0) g/dL Urine Appearance (Clear) Urine Protein (Negative) Urine Blood (Negative) Urine RBC (0-5) /hpf Urine WBC (0-5) /hpf Ur Squamous Epith Cells (0-4) /hpf Urine Bacteria (None) /hpf Hyaline Casts (0-2) /lpf Urine Mucus (None) /hpf 11/22/17 11/22/17 11/22/17 Range/Units 01:53 04:31 07:14 RDW (11.5-15.5) % Plt Count (150-450) k/uL Neutrophils # (1.3-7.7) k/uL Lymphocytes # (1.0-4.8) k/uL PT (9.0-12.0) sec INR (<1.2) APTT (22.0-30.0) sec Sodium (137-145) mmol/L Potassium (3.5-5.1) mmol/L Chloride (98-107) mmol/L BUN (7-17) mg/dL Creatinine (0.52-1.04) mg/dL Glucose (74-99) mg/dL POC Glucose (mg/dL) 70 L 70 L 58 L (75-99) mg/dL Calcium (8.4-10.2) mg/dL Magnesium (1.6-2.3) mg/dL AST (14-36) U/L Total Protein (6.3-8.2) g/dL Albumin (3.5-5.0) g/dL Urine Appearance (Clear) Urine Protein (Negative) Urine Blood (Negative) Urine RBC (0-5) /hpf Urine WBC (0-5) /hpf Ur Squamous Epith Cells (0-4) /hpf Urine Bacteria (None) /hpf Hyaline Casts (0-2) /lpf Urine Mucus (None) /hpf 11/22/17 11/22/17 11/22/17 Range/Units 07:44 07:48 07:48 RDW 15.8 H (11.5-15.5) % Plt Count 149 L (150-450) k/uL Neutrophils # (1.3-7.7) k/uL Lymphocytes # 0.5 L (1.0-4.8) k/uL PT (9.0-12.0) sec INR (<1.2) APTT (22.0-30.0) sec Sodium 135 L (137-145) mmol/L Potassium 3.4 L (3.5-5.1) mmol/L Chloride (98-107) mmol/L BUN 25 H (7-17) mg/dL Creatinine 1.27 H (0.52-1.04) mg/dL Glucose 65 L (74-99) mg/dL POC Glucose (mg/dL) 63 L (75-99) mg/dL Calcium 8.1 L (8.4-10.2) mg/dL Magnesium 1.4 L (1.6-2.3) mg/dL AST 39 H (14-36) U/L Total Protein 6.0 L (6.3-8.2) g/dL Albumin 2.9 L (3.5-5.0) g/dL Urine Appearance (Clear) Urine Protein (Negative) Urine Blood (Negative) Urine RBC (0-5) /hpf Urine WBC (0-5) /hpf Ur Squamous Epith Cells (0-4) /hpf Urine Bacteria (None) /hpf Hyaline Casts (0-2) /lpf Urine Mucus (None) /hpf H & H 11/21/17 11/22/17 Range/Units 14:12 07:48 Hgb 13.7 12.7 (11.4-16.0) gm/dL Hct 42.4 38.9 (34.0-46.0) % Coagulation 11/21/17 Range/Units 14:12 INR 2.8 H (<1.2) Result Diagrams: 11/22/17 07:48 11/22/17 07:48 - Diagnostic results Hip x-ray: report reviewed, image reviewed Ankle/Foot x-ray: report reviewed, image reviewed Assessment and Plan Plan: Imaging: AP and lateral views were reviewed of the right ankle. Mortise joint is intact. Small bony fragment noted off the lateral malleolus, likely represents old sprain. Multiple views of the right hip are reviewed along with AP pelvis. She is obvious moderate to severe bilateral osteoarthritis of the hips. The hip joints remain intact, significant osteophyte formation noted along the femoral head. No obvious fractures visualized. Assessment: 1. Right lateral ankle sprain 2. Right hip osteoarthritis 3. Bilateral lower extremity cellulitis 4. Multiple medical comorbidities Plan: I was able to review the images and discuss physical exam findings with my attending Dr. Wagner. Likelihood of a fracture involving the right hip is low at this time. Due to findings on x-ray, we will order CT of pelvis for further evaluation Conservative management of right ankle sprain, ice and elevate. Advise good supportive shoe Weight-bear as tolerated with walker Physical therapy evaluation Other medical specialty recommendations Unlikely surgical intervention needed at this time Further recommendations to follow Time with Patient: Less than 30
[2017-11-22] MEDS ORDERED: IOHEXOL 350 MG/ML 25 ML BOTTLE (ORAL USE) PO PRN (16:00)
[2017-11-22 17:19] LABS: Glucose,Whole Blood 86 mg/dL (75-99)
[2017-11-22] MEDS: PANTOPRAZOLE 40 MG TABLET PO SCH (17:35)
--- NOTE | 2017-11-22 17:47 | CT ---
EXAMINATION TYPE: CT abdomen pelvis wo con DATE OF EXAM: 11/22/2017 COMPARISON: 11/18/2017 HISTORY: Fall yesterday, right hip pain. Nausea and vomiting. CT DLP: 2636.10 mGycm Automated exposure control for dose reduction was used. TECHNIQUE: Helical acquisition of images was performed from the lung bases through the pelvis. FINDINGS: The heart is enlarged. There is slight coarsening of interstitial markings at the lung bases consiste nt with fibrosis and subsegmental atelectasis. There is increased density at the gastroesophageal quincy ction that could be ingested medication. There is a small hiatal hernia. Liver shows no focal defect. Spleen appears normal. There is no sign of pancreatic mass. Gallbladder appears absent. There is no adrenal mass. There is a 2 cm cyst in the upper pole left kidney. There is no hydronephro sis. There is no ascites. There is umbilical hernia that contains omental fat. I see no intestinal wa ll thickening. There are numerous colonic diverticula. There is no sign of diverticulitis. Appendix i s not seen. There is no sign of appendicitis. There is hypertrophic osteoarthritis in both hip joints . This is worse on the left side. There is multilevel spondylosis in the lumbar spine. IMPRESSION: UMBILICAL HERNIA. ATHEROSCLEROTIC VASCULAR DISEASE. LEFT RENAL CORTICAL CYST. FIBROTIC CHANGES AT THE LUNG BASES. HIP JOINT OSTEOARTHRITIS. NO FRACTURE SEEN. EXTENSIVE COLONIC DIVERTICULOSIS WITHOUT SIG N OF DIVERTICULITIS. NO ADVERSE CHANGE COMPARED TO LAST EXAM.
[2017-11-22 20:48] LABS: Glucose,Whole Blood 130 mg/dL (75-99)
[2017-11-22 20:57] LABS: INR 2.8 (<1.2); Prothrombin Time 25.1 sec (9.0-12.0)
[2017-11-22] MEDS: WARFARIN 2.5 MG TAB PO SCH (21:10)
[2017-11-22] MEDS: ATORVASTATIN 10 MG TAB PO SCH (21:11)
[2017-11-22] MEDS: FAMOTIDINE 20 MG TAB PO SCH (21:11)
[2017-11-23 03:10] LABS: Glucose,Whole Blood 157 mg/dL (75-99)
[2017-11-23] MEDS: DEXTROSE 5%-0.45% NACL 1,000 ML IV SCH ×2 (05:52→08:11)
[2017-11-23] MEDS: ACETAMINOPHEN TAB 325 MG TAB PO PRN ×2 (06:12→21:08)
[2017-11-23 07:50] LABS: Glucose,Whole Blood 178 mg/dL (75-99)
[2017-11-23 08:02] LABS: INR 3.1 (<1.2); Prothrombin Time 27.5 sec (9.0-12.0)
[2017-11-23] MEDS: INSULIN ASPART 100 UNIT/ML 1 ML 10 ML VIAL SQ SCH ×4 (08:09→21:14)
[2017-11-23] MEDS: ASPIRIN 81 MG PO SCH (08:10)
[2017-11-23] MEDS: NYSTATIN 100,000UNIT/GM CREAM 30 GM TUBE TOPICAL SCH ×3 (08:10→21:09)
[2017-11-23 08:22] LABS: ALT 34 U/L (9-52); AST 23 U/L (14-36); Albumin 2.2 g/dL (3.5-5.0); Alkaline Phosphatase 63 U/L (38-126); Anion Gap 6 mmol/L; Blood Urea Nitrogen 21 mg/dL (7-17); Calcium 7.6 mg/dL (8.4-10.2); Carbon Dioxide 25 mmol/L (22-30); Chloride 102 mmol/L (98-107); Glucose 185 mg/dL (74-99); Magnesium 1.6 mg/dL (1.6-2.3); Phosphorus 2.5 mg/dL (2.5-4.5); Potassium 3.6 mmol/L (3.5-5.1); Sodium 133 mmol/L (137-145); Total Bilirubin 0.2 mg/dL (0.2-1.3); Total Protein 4.8 g/dL (6.3-8.2)
[2017-11-23 08:24] LABS: Anisocytosis Slight; HCT 35.2 % (34.0-46.0); HGB 11.1 gm/dL (11.4-16.0); MCH 28.7 pg (25.0-35.0); MCHC 31.5 g/dL (31.0-37.0); MCV 91.2 fL (80.0-100.0); Mean Platelet Volume 7.9; Platelet Count 146 k/uL (150-450); RBC 3.86 m/uL (3.80-5.40); RDW 16.3 % (11.5-15.5); WBC 3.1 k/uL (3.8-10.6)
[2017-11-23 09:09] LABS: Eosinophils # (M) 0.12 k/uL (0-0.7); Lymphocytes # (M) 0.59 k/uL (1.0-4.8); Monocytes # (M) 0.62 k/uL (0-1.0); Neutrophils # (M) 1.77 k/uL (1.3-7.7); Neutrophils % (M) 57 %; Nucleated Red Blood Cells 0 /100 WBC (0-0); Total Cells Counted 100
[2017-11-23 09:10] LABS: Poikilocytosis (M) Present
[2017-11-23] MEDS: SILVER sulfADIAZINE Cream 400 GM 1 APPLIC APPLIC TOPICAL SCH (11:31)
[2017-11-23] MEDS: CHOLECALCIFEROL 1,000 UNIT TAB PO SCH (11:54)
[2017-11-23] MEDS ORDERED: VANCOMYCIN 2,000 MG in SODIUM CHLORIDE 0.9% 500 ML IVPB SCH (12:00)
--- NOTE | 2017-11-23 12:03 | P.PN ---
Subjective Progress Note Date: 11/23/17 Patient this morning complaining of some intermittent nausea and vomiting but was apparently able to tolerate the diet was having more nausea with fluids this morning, reports that this is been intermittent over the last several months, is also status post cholecystectomy but having ongoing symptoms, reports prior EGD that showed inflammation and reports compliance with PPI therapy with Prilosec. Also reports a lot of fatigue and lower extremity weakness. Also inquiring about previous imaging results that suggested kidney mass. No acute events overnight afebrile Objective - Vital Signs Vital signs: Vital Signs Temp 98 F 11/23/17 08:09 Pulse 71 11/23/17 08:18 Resp 19 11/23/17 08:18 BP 111/54 11/23/17 08:09 Pulse Ox 95 11/23/17 08:09 Intake & Output 11/22/17 11/23/17 11/23/17 18:59 06:59 18:59 Intake Total 960 150 Output Total 400 Balance 560 150 Weight 145.15 kg Intake: Oral 960 150 Output: Emesis 400 Other: Voiding Method Bedside Commode # Voids 2 5 1 # Bowel Movements 1 - Exam Constitutional: No acute distress, conversant, pleasant Eyes:Anicteric sclerae, moist conjunctiva, no lid-lag, PERRLA, ENMT: Oropharynx clear, no erythema, exudates Neck: Supple, FROM, no masses, or JVD, No carotid bruits, No thyromegaly Lungs: Clear to auscultation, Clear to percussion, Normal respiratory effort, no accessory muscle use Cardiovascular: Heart regular in rate and rhythm, No murmurs, gallops, or rubs, No peripheral edema Abdominal: Soft, Nontender, no guarding, rebound or rigidity, Normoactive bowel sounds, No hepatomegaly, No splenomegaly, No palpable mass Skin: Bilateral lower extremities skin is thick, warm and erythematous--- improved today. Right groin erythema resolving. No subcutaneous nodules, No rash, lesions, No ulcers Extremities: No digital cyanosis, No clubbing, Pedal pulses intact and symmetrical, Radial pulses intact and symmetrical, No calf tenderness Psychiatric: Alert and oriented to person, place and time, appropriate affect, intact judgement Neuro: Muscles Strength 5/5 in all 4 extremities, Sensation to light touch grossly present throughout, Cranial nerves II-XII grossly intact, no focal sensory deficits - Labs CBC & Chem 7: 11/23/17 07:46 11/23/17 07:46 Labs: Abnormal Lab Results - Last 24 Hours (Table) 11/22/17 11/22/17 11/23/17 Range/Units 20:35 20:43 03:06 WBC (3.8-10.6) k/uL Hgb (11.4-16.0) gm/dL RDW (11.5-15.5) % Plt Count (150-450) k/uL Lymphocytes # (Manual) (1.0-4.8) k/uL PT 25.1 H (9.0-12.0) sec INR 2.8 H (<1.2) Sodium (137-145) mmol/L BUN (7-17) mg/dL Glucose (74-99) mg/dL POC Glucose (mg/dL) 130 H 157 H (75-99) mg/dL Calcium (8.4-10.2) mg/dL Total Protein (6.3-8.2) g/dL Albumin (3.5-5.0) g/dL 11/23/17 11/23/17 11/23/17 Range/Units 07:44 07:46 07:46 WBC 3.1 L (3.8-10.6) k/uL Hgb 11.1 L (11.4-16.0) gm/dL RDW 16.3 H (11.5-15.5) % Plt Count 146 L (150-450) k/uL Lymphocytes # (Manual) 0.59 L (1.0-4.8) k/uL PT 27.5 H (9.0-12.0) sec INR 3.1 H (<1.2) Sodium (137-145) mmol/L BUN (7-17) mg/dL Glucose (74-99) mg/dL POC Glucose (mg/dL) 178 H (75-99) mg/dL Calcium (8.4-10.2) mg/dL Total Protein (6.3-8.2) g/dL Albumin (3.5-5.0) g/dL 11/23/17 Range/Units 07:46 WBC (3.8-10.6) k/uL Hgb (11.4-16.0) gm/dL RDW (11.5-15.5) % Plt Count (150-450) k/uL Lymphocytes # (Manual) (1.0-4.8) k/uL PT (9.0-12.0) sec INR (<1.2) Sodium 133 L (137-145) mmol/L BUN 21 H (7-17) mg/dL Glucose 185 H (74-99) mg/dL POC Glucose (mg/dL) (75-99) mg/dL Calcium 7.6 L (8.4-10.2) mg/dL Total Protein 4.8 L (6.3-8.2) g/dL Albumin 2.2 L (3.5-5.0) g/dL Microbiology - Last 24 Hours (Table) 11/21/17 23:43 Blood Culture - Preliminary Blood No Growth after 24 hours 11/21/17 23:43 Blood Culture - Preliminary Blood No Growth after 24 hours Assessment and Plan Assessment: #1 Acute bilateral lower extremity cellulitis/Right groin cellulitis: * Improved d/c vancomycin and start oral clindamycin 600 mg TID , nystatin cream to the right groin 3 times a day * Wound care with local silvadine #2 Acute renal failure: * Resolved Likely secondary to Bactrim in conjunction with dehydration secondary to the diarrhea and the vomiting. D/Guilherme Bactrim Avoid nephrotoxic medications Follow up creatinine in the morning #3 Nausea and vomiting: * Consult GI for further recommendations Likely sec to all of the above, +/- bactrim side effect Zofran and phenergan to alternate q3hrs. #4 Hypotension: Likely sec to dehydration IV fluids Monitor BP Hold HTN meds #5 Diabetes Mellitus 2 with hypoglycemia Likely sec to not eating while the blood glucose lowering meds are still in her system, As above IV fluids switched to D5 half normal saline. Hold oral hypoglycemics. #6 Severe R hip osteoarthritis * no fracture seen on CT * Appreciate Ortho recommendations #7 History of Deep Vein Thrombosis (DVT)/Pulmonary Embolus (PE), GERD/Reflux, Hyperlipidemia, Osteoarthritis (OA): Continue all medications All stable #8 DVT prophylaxis: Already on Coumadin #9 Morbid obesity: Behavioral Therapist regarding weight loss
[2017-11-23 12:25] LABS: Glucose,Whole Blood 135 mg/dL (75-99)
[2017-11-23] MEDS: CLINDAMYCIN 150 MG CAP PO SCH ×3 (12:44→21:08)
[2017-11-23 17:47] LABS: Glucose,Whole Blood 130 mg/dL (75-99)
[2017-11-23] MEDS: WARFARIN 2.5 MG TAB PO SCH (17:51)
[2017-11-23] MEDS: PANTOPRAZOLE 40 MG TABLET PO SCH (17:51)
[2017-11-23 20:42] LABS: Glucose,Whole Blood 179 mg/dL (75-99)
[2017-11-23] MEDS: ATORVASTATIN 10 MG TAB PO SCH (21:08)
[2017-11-23 23:01] VITALS: BMI 53.2
[2017-11-24 02:23] LABS: Glucose,Whole Blood 126 mg/dL (75-99)
[2017-11-24] MEDS: ACETAMINOPHEN TAB 325 MG TAB PO PRN ×3 (04:48→22:19)
[2017-11-24 07:47] LABS: Glucose,Whole Blood 137 mg/dL (75-99)
[2017-11-24] MEDS: CLINDAMYCIN 150 MG CAP PO SCH ×3 (08:17→20:29)
[2017-11-24] MEDS: ASPIRIN 81 MG PO SCH (08:17)
[2017-11-24] MEDS: NYSTATIN 100,000UNIT/GM CREAM 30 GM TUBE TOPICAL SCH ×3 (08:17→20:29)
[2017-11-24] MEDS: INSULIN ASPART 100 UNIT/ML 1 ML 10 ML VIAL SQ SCH ×4 (08:18→21:17)
[2017-11-24] MEDS: SILVER sulfADIAZINE Cream 400 GM 1 APPLIC APPLIC TOPICAL SCH (08:21)
[2017-11-24] MEDS: MAG HYDROX/AL HYDROX/SIMETH 30 ML CUP PO PRN (09:12)
--- NOTE | 2017-11-24 10:21 | P.PN ---
Subjective Progress Note Date: 11/24/17 Principal diagnosis: Right hip osteoarthritis exacerbation, right lateral ankle sprain Patient evaluated today at bedside today, she is up in the chair. She has ambulated with a walker over the last day. She notes improvement in the right hip symptoms, still notes minimal thigh discomfort. She notes the ankle is feeling better also. Her nausea has improved. Objective - Vital Signs Vital signs: Vital Signs Temp 96.9 F L 11/24/17 07:00 Pulse 73 11/24/17 07:00 Resp 16 11/24/17 07:00 BP 118/58 11/24/17 07:00 Pulse Ox 97 11/24/17 07:00 Intake & Output 11/23/17 11/24/17 11/24/17 18:59 06:59 18:59 Intake Total 150 Output Total 100 Balance 50 Weight 145.15 kg Intake: Oral 150 Output: Emesis 100 Other: Voiding Method Bedside Commode Bedside Commode # Voids 3 5 1 - Exam Right lower extremity: Exam remains unchanged since initial evaluation - Labs CBC & Chem 7: 11/23/17 07:46 11/23/17 07:46 Labs: Abnormal Lab Results - Last 24 Hours (Table) 11/23/17 11/23/17 11/23/17 Range/Units 12:16 17:08 20:34 POC Glucose (mg/dL) 135 H 130 H 179 H (75-99) mg/dL 11/24/17 11/24/17 Range/Units 02:14 07:10 POC Glucose (mg/dL) 126 H 137 H (75-99) mg/dL Microbiology - Last 24 Hours (Table) 11/21/17 23:43 Blood Culture - Preliminary Blood No Growth after 48 hours 11/21/17 23:43 Blood Culture - Preliminary Blood No Growth after 48 hours Assessment and Plan Plan: Assessment: 1. Right lateral ankle sprain 2. Right hip osteoarthritis 3. Bilateral lower extremity cellulitis 4. Multiple medical comorbidities Plan: CT exam revealed no fractures involving the right hip, osteoarthritic changes Conservative management of right ankle sprain, ice and elevate. Advise good supportive shoe Weight-bear as tolerated with walker Physical therapy evaluation Other medical specialty recommendations No orthopedic surgical intervention needed An orthopedic standpoint, patient is stable for discharge, recommend continuing use of walker or cane with ambulation Time with Patient: Less than 30
--- NOTE | 2017-11-24 11:49 | P.CONS ---
History of Present Illness - Reason for Consult Consult date: 11/24/17 Nausea vomiting Requesting physician: Jamaal Molina - History of Present Illness 82-year-old female admitted with bilateral lower extremity cellulitis groin cellulitis receiving oral clindamycin, history of cholecystectomy August 2017, diabetes, DVT maintained on warfarin, morbid obesity, GERD. Consultation requested for nausea vomiting. Patient has had intermittent indigestion GERD-like symptoms for more than a year. Her last EGD was a year ago October [address] Rdz reported unremarkable with "some mild stomach inflammation". Cholecystectomy August 2017 for persistent nausea GERD-like symptoms which patient reports did not improve her symptomology. Over the last few days patient has exacerbation of nausea vomiting. Her last emesis was yesterday morning however since then the nausea has improved and she is starting to tolerate some liquids. Denies hematemesis hematochezia melena. Minimal epigastric discomfort. White count 3.1. Hemoglobin 11.1 platelet 146. INR was 3.1. Sodium 133. Potassium 3.6. BUN 21 creatinine 1.0. LFT[address] un[address]able. CT abdomen and pelvis umbilical hernia. Colonic diverticulosis. No adverse change compared to last exam. Review of Systems Constitutional: Denies fever, chills, sweats, weight gain, or loss. HEENT: Negative for migraines, blurred vision or loss, earaches, drainage, tinnitus, oral mucosal lesions, dysphagia, or odynophagia. CARDIAC: Hyperlipidemia. Hypertension. Negative for chest pain, arrhythmias, or palpitation. RESPIRATORY: DVT. PE. Negative for shortness of breath, hemoptysis, cough, or sputum production. GI: See HPI for pertinent findings. : Negative for hematuria, urgency, frequency, polyuria, or dysuria. GYNc: Denies possibility of . Negative vaginal discharge. MUSCULOSKELETAL: Negative for muscle aches, swelling, arthritis, and arthralgias. NEUROLOGIC: Negative for stroke or TIA. ENDOCRINE: Diabetes mellitus. Negative for thyroid problems. SKIN: Negative for rash or itching. 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 Morbid obesity, mass on right kidney, cellulitis BLE, fall at home History of Any Multi-Drug Resistant Organisms: None Reported Past Surgical History: Breast Surgery, Cholecystectomy, Joint Replacement, Orthopedic Surgery Additional Past Surgical History / Comment(s): thelma knee replac; L shoulder replac.; carpel tunnel vaginal duct cyst; benign breast surg; cataracts; retinal repair left eye Past Anesthesia/Blood Transfusion Reactions: No Reported Reaction Past Psychological History: No Psychological Hx Reported Smoking Status: Never smoker Past Alcohol Use History: None Reported Past Drug Use History: None Reported - Past Family History Father Family Medical History: Deep Vein Thrombosis (DVT) Medications and Allergies Home Medications Medication Instructions Recorded Confirmed Type Aspirin 81 mg PO DAILY 08/25/17 11/21/17 History Cholecalciferol (Vitamin D3) 2,000 unit PO DAILY 08/25/17 11/21/17 History [Vitamin D3] Hydrochlorothiazide [Hydrodiuril] 25 mg PO DAILY 08/25/17 11/21/17 History Losartan Potassium [Cozaar] 100 mg PO DAILY 08/25/17 11/21/17 History Metoprolol Tartrate [Lopressor] 50 mg PO BID 08/25/17 11/21/17 History Omeprazole [PriLOSEC] 40 mg PO AC-SUPPER 08/25/17 11/21/17 History Simvastatin [Zocor] 10 mg PO HS 08/25/17 11/21/17 History Warfarin Sodium 2.5 mg PO MOTUWEFRSA 08/25/17 11/21/17 History Warfarin [Coumadin] 1.25 mg PO SUTH 08/25/17 11/21/17 History amLODIPine [Norvasc] 2.5 mg PO DAILY 08/25/17 11/21/17 History glipiZIDE [Glucotrol] 5 mg PO AC-BID 08/25/17 11/21/17 History metFORMIN HCL [Glucophage] 1,000 mg PO AC-BID 08/25/17 11/21/17 History Sulfamethoxazole/Trimethoprim 1 tab PO BID 11/21/17 11/21/17 History [Bactrim DS 800-160 mg] Ondansetron [Zofran] 4 mg PO Q6HR PRN #56 tab 11/24/17 Rx Allergies Allergy/AdvReac Type Severity Reaction Status Date / Time azithromycin Allergy Dyspnea & Verified 01/01/18 13:23 nausea ciprofloxacin [From Cipro] Allergy Dyspnea & Verified 11/21/17 13:23 nausea Penicillins Allergy Rash/Hives Verified 11/21/17 13:23 Physical Exam Vitals: Vital Signs Temp Pulse Resp BP Pulse Ox 11/24/17 07:00 96.9 F L 73 16 118/58 97 11/23/17 22:51 97.5 F L 74 18 126/68 98 11/23/17 22:16 67 20 11/23/17 16:50 67 20 11/23/17 15:57 97.6 F 67 20 125/75 99 Intake and Output 11/23/17 11/24/17 11/24/17 22:59 06:59 14:59 Other: Voiding Method Bedside Commode # Voids 2 5 1 Weight 145.15 kg General appearance: The patient is alert, oriented, in no acute distress. HET: Head is normocephalic and atraumatic. Pupils are equal and reactive. Oropharynx is clear without lesions. Neck: Supple without lymphadenopathy. Trachea midline. Heart: S1 S2. Regular rate and rhythm. Lungs: No crackles or wheezes are heard. Abdomen: Soft, nontender, nondistended with bowel sounds. No peritoneal signs. No palpable organomegaly or masses. Extremities: Lower extremity cellulitis with dressings edema chronic skin calloused changes. Neurological: No focal deficits. Strength and sensation are grossly intact. Results CBC & Chem 7: 11/23/17 07:46 11/23/17 07:46 Labs: Abnormal Lab Results - Last 24 Hours (Table) 11/23/17 11/23/17 11/23/17 Range/Units 12:16 17:08 20:34 POC Glucose (mg/dL) 135 H 130 H 179 H (75-99) mg/dL 11/24/17 11/24/17 Range/Units 02:14 07:10 POC Glucose (mg/dL) 126 H 137 H (75-99) mg/dL Microbiology - Last 24 Hours (Table) 11/21/17 23:43 Blood Culture - Preliminary Blood No Growth after 48 hours 11/21/17 23:43 Blood Culture - Preliminary Blood No Growth after [address] scan - abdomen: report reviewed (Dr. Boyer) Assessment and Plan (1) Nausea and vomiting Narrative/Plan: GERD suspect exacerbated with oral antibiotics clindamycin. Nausea vomiting has improved 24 hours. Gastroparesis possible with underlying history of diabetes. Current Visit: Yes Status: Acute Code(s): R11.2 - NAUSEA WITH VOMITING, UNSPECIFIED SNOMED Code(s): 39393521 (2) GERD (gastroesophageal reflux disease) Current Visit: Yes Status: Acute Code(s): K21.9 - GASTRO-ESOPHAGEAL REFLUX DISEASE WITHOUT ESOPHAGITIS SNOMED Code(s): 954592532 (3) Cellulitis Current Visit: Yes Status: Acute Code(s): L03.90 - CELLULITIS, UNSPECIFIED SNOMED Code(s): 947559956 (4) Warfarin-induced coagulopathy Current Visit: Yes Status: Acute Code(s): D68.9 - COAGULATION DEFECT, UNSPECIFIED; T45.515A - ADVERSE EFFECT OF ANTICOAGULANTS, INITIAL ENCOUNTER SNOMED Code(s): 38949897 (5) History of pulmonary embolism Current Visit: Yes Status: Chronic Code(s): Z86.711 - PERSONAL HISTORY OF PULMONARY EMBOLISM SNOMED Code(s): 311961109 Plan: 1. Anti-nausea medications supportive measures. Low dose Reglan AC-meals may be of benefit as well. Advance diet for lunch, recommend small frequent meals throughout the day if lunch is tolerated may be discharged to ECF. Return to office in 2 weeks for reevaluation. Inpatient upper endoscopic exam not planned at this time. Continue with Protonix 40 mg daily. Thank you for this kind referral and the opportunity to participate in the care of your patient. This consultation was discussed with Dr. Boyer. The impression and plan of care have been directed as dictated.
[2017-11-24 12:29] LABS: HGB 12.1 gm/dL (11.4-16.0); MCH 28.6 pg (25.0-35.0); MCHC 31.7 g/dL (31.0-37.0); MCV 90.2 fL (80.0-100.0); Mean Platelet Volume 8.2; Platelet Count 168 k/uL (150-450); RBC 4.21 m/uL (3.80-5.40); RDW 14.7 % (11.5-15.5); WBC 5.6 k/uL (3.8-10.6)
[2017-11-24 12:33] LABS: Glucose,Whole Blood 171 mg/dL (75-99)
[2017-11-24 12:36] LABS: Anion Gap 7 mmol/L; Blood Urea Nitrogen 17 mg/dL (7-17); Calcium 8.7 mg/dL (8.4-10.2); Carbon Dioxide 29 mmol/L (22-30); Chloride 103 mmol/L (98-107); Glucose 183 mg/dL (74-99); Sodium 139 mmol/L (137-145)
[2017-11-24 12:42] LABS: Potassium 4.2 mmol/L (3.5-5.1)
[2017-11-24 12:55] LABS: Prothrombin Time 46.4 sec (9.0-12.0)
[2017-11-24 13:01] LABS: Band Neutrophils % 1 %; Lymphocytes # (M) 2.24 k/uL (1.0-4.8); Monocytes # (M) 1.23 k/uL (0-1.0); Neutrophils % (M) 37 %; Nucleated Red Blood Cells 0 /100 WBC (0-0); Poikilocytosis (M) Present; Total Cells Counted 100
[2017-11-24] MEDS: CHOLECALCIFEROL 1,000 UNIT TAB PO SCH (13:13)
[2017-11-24 13:16] LABS: INR 5.1 (<1.2)
[2017-11-24 16:29] VITALS: RESP 16
[2017-11-24] MEDS: PANTOPRAZOLE 40 MG TABLET PO SCH (17:05)
[2017-11-24 17:23] LABS: Glucose,Whole Blood 142 mg/dL (75-99)
[2017-11-24] MEDS ORDERED: WARFARIN 2.5 MG TAB PO SCH (18:00)
[2017-11-24] MEDS: ATORVASTATIN 10 MG TAB PO SCH (20:28)
[2017-11-24 20:47] LABS: Glucose,Whole Blood 214 mg/dL (75-99)
[2017-11-25 02:51] LABS: Glucose,Whole Blood 125 mg/dL (75-99)
[2017-11-25 07:35] LABS: Glucose,Whole Blood 142 mg/dL (75-99)
[2017-11-25 07:50] VITALS: BP 136/68; PULSE 73; TEMP 98
[2017-11-25] MEDS: ASPIRIN 81 MG PO SCH (08:14)
[2017-11-25] MEDS: INSULIN ASPART 100 UNIT/ML 1 ML 10 ML VIAL SQ SCH ×2 (08:14→13:07)
[2017-11-25] MEDS: CLINDAMYCIN 150 MG CAP PO SCH (08:14)
[2017-11-25] MEDS: NYSTATIN 100,000UNIT/GM CREAM 30 GM TUBE TOPICAL SCH (08:15)
[2017-11-25] MEDS: SILVER sulfADIAZINE Cream 400 GM 1 APPLIC APPLIC TOPICAL SCH (08:15)
[2017-11-25 09:02] LABS: Prothrombin Time 48.3 sec (9.0-12.0)
[2017-11-25 09:11] LABS: INR 5.3 (<1.2)
[2017-11-25] MEDS: ACETAMINOPHEN TAB 325 MG TAB PO PRN (11:57)
[2017-11-25] MEDS: CHOLECALCIFEROL 1,000 UNIT TAB PO SCH (11:57)
[2017-11-25 12:54] LABS: Glucose,Whole Blood 193 mg/dL (75-99)
--- NOTE | 2017-11-25 13:06 | P.DS ---
Providers Date of admission: 11/21/17 16:40 Expected date of discharge: 11/25/17 Attending physician: Gerber Gardner MD Consults: 11/22/17 11:31 Consult Physician Routine Consulting Provider: Adria Hay Consult Reason/Comments: hip fx Do you want consulting provider notified?: Yes 11/23/17 11:16 Consult Physician Routine Consulting Provider: Patrizia Klein Consult Reason/Comments: persistent nausea,vomiting Do you want consulting provider notified?: Yes Primary care physician: Lexis Mcdowell MD - Discharge Diagnosis(es) (1) Bilateral lower leg cellulitis Current Visit: Yes Status: Acute (2) LEORA (acute kidney injury) Current Visit: Yes Status: Acute (3) GERD (gastroesophageal reflux disease) Current Visit: Yes Status: Acute (4) Warfarin-induced coagulopathy Current Visit: Yes Status: Acute (5) History of pulmonary embolism Current Visit: Yes Status: Chronic (6) Chronic acquired lymphedema Current Visit: Yes Status: Acute Hospital Course: the patient is a morbidly obese 82-year-old female with a history of chronic lymphedema that was admitted for bilateral lower extremity cellulitis after failing outpatient therapy with Bactrim, the patient also had acute kidney injury precipitated by an Bactrim superimposed on acute dehydration due to nausea vomiting and diarrhea. She was initiated on IV antibiotics with vancomycin and initiated on IV fluids, her Bactrim was held and be avoided nephrotoxic medications. Orthopedics was consulted after her initial hip x-ray suggested a fracture follow-up CT abdomen and pelvis essentially ruled out any acute fractures. The patient's erythema and tenderness and fever gradually resolved and she was switched to oral clindamycin. the patient's acute kidney injury gradually resolved as her creatinine returned to baseline. GI was consulted regarding patient's persistent nausea with episodes of vomiting a suspected that the patient's GERD was contributing despite being on Prilosec chronically to this or possibly gastroparesis as a patient does have a history of diabetes, recommendations are for Protonix and Reglan. as the patient's blood pressure was borderline her antihypertensive regimen was held and her blood pressure remained stable. She was noted to have Coumadin induced coagulopathy precipitated by antibiotic use as her INR was slightly elevated as high as 5.3. the patient was instructed to hold her Coumadin on discharge and to get her PT/INR checked at [facility] on tuesday. The patient's HCTZ and Norvasc were stopped on discharge.the patient is scheduled to follow-up with GI in 2 weeks. this discharge process took approximately 35 minutes Pertinent Studies: CT abdomen and pelvis showing umbilical hernia, atherosclerotic vascular disease , left renal cortical system, fibrotic changes at the lung bases, hip joint osteoarthritis. No fractures seen, an extensive diverticulosis without evidence of diverticulitis Patient Condition at Discharge: Fair Plan - Discharge Summary New Discharge Prescriptions: New Ondansetron [Zofran] 4 mg PO Q6HR PRN #56 tab PRN Reason: Nausea Acetaminophen Tab [Tylenol] 650 mg PO Q6HR PRN tab PRN Reason: Fever And/ Or Pain Clindamycin [Cleocin] 600 mg PO TID #30 cap Pantoprazole [Protonix] 40 mg PO AC-SUPPER #30 tablet.dr Continue Simvastatin [Zocor] 10 mg PO HS Cholecalciferol (Vitamin D3) [Vitamin D3] 2,000 unit PO DAILY metFORMIN HCL [Glucophage] 1,000 mg PO AC-BID Metoprolol Tartrate [Lopressor] 50 mg PO BID Losartan Potassium [Cozaar] 100 mg PO DAILY glipiZIDE [Glucotrol] 5 mg PO AC-BID Aspirin 81 mg PO DAILY Warfarin [Coumadin] 1.25 mg PO SUTH #0 Warfarin Sodium 2.5 mg PO MOTUWEFRSA #0 Discontinued Omeprazole [PriLOSEC] 40 mg PO AC-SUPPER Hydrochlorothiazide [Hydrodiuril] 25 mg PO DAILY amLODIPine [Norvasc] 2.5 mg PO DAILY Sulfamethoxazole/Trimethoprim [Bactrim DS 800-160 mg] 1 tab PO BID Discharge Medication List Aspirin 81 mg PO DAILY 08/25/17 [History] Cholecalciferol (Vitamin D3) [Vitamin D3] 2,000 unit PO DAILY 08/25/17 [History] Losartan Potassium [Cozaar] 100 mg PO DAILY 08/25/17 [History] Metoprolol Tartrate [Lopressor] 50 mg PO BID 08/25/17 [History] Simvastatin [Zocor] 10 mg PO HS 08/25/17 [History] glipiZIDE [Glucotrol] 5 mg PO AC-BID 08/25/17 [History] metFORMIN HCL [Glucophage] 1,000 mg PO AC-BID 08/25/17 [History] Acetaminophen Tab [Tylenol] 650 mg PO Q6HR PRN tab 11/24/17 [Rx] Clindamycin [Cleocin] 600 mg PO TID #30 cap 11/24/17 [Rx] Ondansetron [Zofran] 4 mg PO Q6HR PRN #56 tab 11/24/17 [Rx] Pantoprazole [Protonix] 40 mg PO AC-SUPPER #30 tablet. 11/24/17 [Rx] Warfarin Sodium 2.5 mg PO MOTUWEFRSA #0 11/24/17 [Rx] Warfarin [Coumadin] 1.25 mg PO SUTH #0 11/24/17 [Rx] Follow up Appointment(s)/Referral(s): Lexis Mcdowell MD [Primary Care Provider] - 11/28/17 (Office will call patient with appointment time.) Zoey Olivo, [NON-STAFF] - 1 Week [facility] Visiting Nurse, [NON-STAFF] - Patient Instructions/Handouts: Cellulitis (DC), Acute Nausea and Vomiting (DC) Activity/Diet/Wound Care/Special Instructions: Do not take Coumadin until PT/INR rechecked on Tuesday. 12/05/16 Cardiac, diabetic diet. Activity as tolerated, fall precautions. Discharge Disposition: TRANSFER TO SNF/ECF
--- NOTE | 2017-11-25 13:13 | P.PN ---
Subjective Progress Note Date: 11/25/17 Patient feeling much better today, has been ambulating with a walker. Appetite has returned. No acute events overnight Objective - Vital Signs Vital signs: Vital Signs Temp 98.0 F 11/25/17 07:00 Pulse 73 11/25/17 07:00 Resp 16 11/25/17 07:00 BP 136/68 11/25/17 07:00 Pulse Ox 96 11/25/17 07:00 Intake & Output 11/24/17 11/25/17 11/25/17 18:59 06:59 18:59 Intake Total 200 Balance 200 Intake: Oral 200 Other: Voiding Method Bedside Commode Bedside Commode Bedpan # Voids 3 1 1 # Bowel Movements 1 - Exam Constitutional: No acute distress, conversant, pleasant Eyes:Anicteric sclerae, moist conjunctiva, no lid-lag, PERRLA, ENMT: Oropharynx clear, no erythema, exudates Neck: Supple, FROM, no masses, or JVD, No carotid bruits, No thyromegaly Lungs: Clear to auscultation, Clear to percussion, Normal respiratory effort, no accessory muscle use Cardiovascular: Heart regular in rate and rhythm, No murmurs, gallops, or rubs, No peripheral edema Abdominal: Soft, Nontender, no guarding, rebound or rigidity, Normoactive bowel sounds, No hepatomegaly, No splenomegaly, No palpable mass Skin: Bilateral lower extremities skin is thick, warm and resolving erythema No subcutaneous nodules, No rash, lesions, No ulcers Extremities: No digital cyanosis, No clubbing, Pedal pulses intact and symmetrical, Radial pulses intact and symmetrical, No calf tenderness Psychiatric: Alert and oriented to person, place and time, appropriate affect, intact judgement Neuro: Muscles Strength 5/5 in all 4 extremities, Sensation to light touch grossly present throughout, Cranial nerves II-XII grossly intact, no focal sensory deficits - Labs CBC & Chem 7: 11/24/17 11:58 11/24/17 11:58 Labs: Abnormal Lab Results - Last 24 Hours (Table) 11/24/17 11/24/17 11/24/17 Range/Units 11:58 17:13 20:46 PT 46.4 H (9.0-12.0) sec INR 5.1 H* (<1.2) POC Glucose (mg/dL) 142 H 214 H (75-99) mg/dL 11/25/17 11/25/17 11/25/17 Range/Units 02:33 07:10 08:35 PT 48.3 H (9.0-12.0) sec INR 5.3 H* (<1.2) POC Glucose (mg/dL) 125 H 142 H (75-99) mg/dL 11/25/17 Range/Units 12:23 PT (9.0-12.0) sec INR (<1.2) POC Glucose (mg/dL) 193 H (75-99) mg/dL Microbiology - Last 24 Hours (Table) 11/21/17 23:43 Blood Culture - Preliminary Blood No Growth after 72 hours 11/21/17 23:43 Blood Culture - Preliminary Blood No Growth after 72 hours Assessment and Plan Assessment: #1 Acute bilateral lower extremity cellulitis/Right groin cellulitis: * Improved d/c vancomycin and continue oral clindamycin 600 mg TID , nystatin cream to the right groin 3 times a day * Wound care with local silvadine #2 Acute renal failure: * Resolved Likely secondary to Bactrim in conjunction with dehydration secondary to the diarrhea and the vomiting. D/Guilherme Bactrim Avoid nephrotoxic medications Follow up creatinine in the morning #3 Nausea and vomiting: * Much improved today * Appreciate GI recommendations for continuing Protonix and Reglan * Zofran and phenergan to alternate q3hrs. #4 warfarin-induced coagulopathy * INR 5.1 due to Coumadin therapy superimposed on antibiotic use * We'll hold Coumadin today and at discharge with follow-up PT/INR prior to resumption of Coumadin #5 Diabetes Mellitus 2 with hypoglycemia Likely sec to not eating while the blood glucose lowering meds are still in her system, As above IV fluids switched to D5 half normal saline. Hold oral hypoglycemics. 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 (1) Bilateral lower leg cellulitis Current Visit: Yes Status: Acute Code(s): L03.116 - CELLULITIS OF LEFT LOWER LIMB; L03.115 - CELLULITIS OF RIGHT LOWER LIMB SNOMED Code(s): 965669551 (2) LEORA (acute kidney injury) Current Visit: Yes Status: Acute Code(s): N17.9 - ACUTE KIDNEY FAILURE, UNSPECIFIED SNOMED Code(s): 77196552 (3) GERD (gastroesophageal reflux disease) Current Visit: Yes Status: Acute Code(s): K21.9 - GASTRO-ESOPHAGEAL REFLUX DISEASE WITHOUT ESOPHAGITIS SNOMED Code(s): 087950894 (4) Warfarin-induced coagulopathy Current Visit: Yes Status: Acute Code(s): D68.9 - COAGULATION DEFECT, UNSPECIFIED; T45.515A - ADVERSE EFFECT OF ANTICOAGULANTS, INITIAL ENCOUNTER SNOMED Code(s): 92418517 (5) History of pulmonary embolism Current Visit: Yes Status: Chronic Code(s): Z86.711 - PERSONAL HISTORY OF PULMONARY EMBOLISM SNOMED Code(s): 193049480 (6) Chronic acquired lymphedema Current Visit: Yes Status: Acute Code(s): I89.0 - LYMPHEDEMA, NOT ELSEWHERE CLASSIFIED SNOMED Code(s): 98299892 Plan: Patient impression discharge goals can be discharged today
== END 2017-11-25 14:51 | DRG 683 ==
LOC: EC 12:51 → 4MS4W 16:40
PROVIDERS: ADMIT Internal Medicine; ATTEND Internal Medicine
DX: N17.9 Acute kidney failure, unspecified (principal); L03.116 Cellulitis of left lower limb; E11.649 Type 2 diabetes mellitus with hypoglycemia without coma; E11.43 Type 2 diabetes mellitus with diabetic autonomic (poly)neuropathy; D68.9 Coagulation defect, unspecified; K31.84 Gastroparesis; I95.9 Hypotension, unspecified; E66.01 Morbid (severe) obesity due to excess calories; L03.314 Cellulitis of groin; Z68.43 Body mass index [BMI] 50.0-59.9, adult; L03.115 Cellulitis of right lower limb; T37.0X5A Adverse effect of sulfonamides, initial encounter; E78.5 Hyperlipidemia, unspecified; K21.9 Gastro-esophageal reflux disease without esophagitis; M79.89 Other specified soft tissue disorders; R11.2 Nausea with vomiting, unspecified; T45.515A Adverse effect of anticoagulants, initial encounter; I89.0 Lymphedema, not elsewhere classified; E86.0 Dehydration; R19.7 Diarrhea, unspecified; K42.9 Umbilical hernia without obstruction or gangrene; I87.8 Other specified disorders of veins; S93.401A Sprain of unspecified ligament of right ankle, initial encounter; K57.30 Diverticulosis of large intestine without perforation or abscess without bleeding; M16.11 Unilateral primary osteoarthritis, right hip; I10 Essential (primary) hypertension; Z88.1 Allergy status to other antibiotic agents; Z88.0 Allergy status to penicillin; Z86.711 Personal history of pulmonary embolism; Z79.899 Other long term (current) drug therapy; Z86.718 Personal history of other venous thrombosis and embolism; Z79.82 Long term (current) use of aspirin; Z79.84 Long term (current) use of oral hypoglycemic drugs; Z79.01 Long term (current) use of anticoagulants; Z83.2 Family history of diseases of the blood and blood-forming organs and certain disorders involving the immune mechanism; Z90.49 Acquired absence of other specified parts of digestive tract; Z96.653 Presence of artificial knee joint, bilateral; Z96.612 Presence of left artificial shoulder joint; Z98.41 Cataract extraction status, right eye; Z98.42 Cataract extraction status, left eye; W01.0XXA Fall on same level from slipping, tripping and stumbling without subsequent striking against object, initial encounter; Y92.009 Unspecified place in unspecified non-institutional (private) residence as the place of occurrence of the external cause; Z71.3 Dietary counseling and surveillance
CPT/HCPCS: 36415; 71045; 73502; 74000; 74176; 74177; 80048; 80053; 81001; 82150; 83605; 83690; 83735; 84100; 85025; 85610; 85730; 87040; 93005; 96360; 96361; 96374; 96375; 99284; 99285

== ENCOUNTER → 2018-02-21 | Outpatient (CLI) | payer MEDICARE ==
[2018-02-21 16:39] LABS: INR 2.7 (<1.2)
== END | disposition home or self-care (01) ==
LOC: LABWHC1 16:06
PROVIDERS: ATTEND Family Medicine
DX: I82.409 Acute embolism and thrombosis of unspecified deep veins of unspecified lower extremity (principal)
CPT/HCPCS: 36415; 85610

== ENCOUNTER → 2018-03-29 | Outpatient (CLI) | payer MEDICARE ==
[2018-03-29 12:25] LABS: INR 2.4 (<1.2); Prothrombin Time 21.7 sec (9.0-12.0)
== END | disposition home or self-care (01) ==
LOC: LABWHC1 11:20
PROVIDERS: ATTEND Family Medicine
DX: I82.409 Acute embolism and thrombosis of unspecified deep veins of unspecified lower extremity (principal)
CPT/HCPCS: 36415; 85610

== ENCOUNTER → 2018-09-07 | Outpatient (CLI) | payer MEDICARE ==
--- NOTE | 2018-09-07 10:22 | MM ---
Reason for exam: screening (asymptomatic). Last mammogram was performed 1 year ago. History: Patient is postmenopausal. Benign excisional biopsy of the left breast, 1980. Physical Findings: A clinical breast exam by your physician is recommended on an annual basis and results should be correlated with mammographic findings. MG 3D Screening Mammo W/Cad Bilateral CC and MLO view(s) were taken. Prior study comparison: September 05, 2017, bilateral MG 3d screening mammo w/cad. August 30, 2016, bilateral MG 3d diag mammo w/cad IZABELA. There are scattered fibroglandular densities. Stable oil cyst and secretory calcifications on the left. No significant changes when compared with prior studies. ASSESSMENT: Negative, BI-RAD 1 RECOMMENDATION: Routine screening mammogram of both breasts in 1 year.
== END | disposition home or self-care (01) ==
LOC: RADMAMWWP 09:46
PROVIDERS: ATTEND Family Medicine
DX: Z12.31 Encounter for screening mammogram for malignant neoplasm of breast (principal)
CPT/HCPCS: 77063; 77067

== ENCOUNTER → 2019-05-23 | Outpatient (CLI) | payer MEDICARE ==
--- NOTE | 2019-05-25 12:37 | US ---
EXAMINATION TYPE: US kidneys/renal and bladder DATE OF EXAM: 05/23/2019 COMPARISON: Correlation MRI 05/13/[address] 11/22/2017 CLINICAL HISTORY: 84-year-old female abnormal MRI, M54.5 low back pain. Back pain, left renal cyst se en on previous CT TECHNIQUE: Multiple sonographic images of the kidneys and bladder are obtained. FINDINGS: EXAM MEASUREMENTS: Right Kidney: 10.7 x 5.8 x 5.7 cm Left Kidney: 10.5 x 5.8 x 5.0 cm Belt Press Operator notes:Difficult and limited study due to patient body habitus and exam done with patien t sitting in wheelchair Right Kidney: 1.3 x 1.1 x 1.1cm hypoechoic area with posterior through transmission at the lower pole , suspected cyst. Left Kidney: 2.7 x 2.7 x 2.4cm cyst in the upper pole. No hydronephrosis on either side. Bladder: unable to scan due to limitations described above With note that the 2.3 cm medial mid to lower pole lesion in the right kidney seen on coronal T2 MRI image from the outside 05/13/2019 exam is not clearly identified by ultrasound. IMPRESSION: 1. Technically limited exam. No hydronephrosis. 2. A cyst seen within either kidney. However, the indeterminate 2.3 cm lesion within the right kidney seen on recent outside MRI is not depicted on the current ultrasound exam. Further contrast enhanced renal mass protocol CT or MRI is recommended to further evaluate. 3. I'm unable to adequately evaluate the bladder.
== END | disposition home or self-care (01) ==
LOC: RADUSWWP 16:09
PROVIDERS: ATTEND Physical Medicine & Rehabilitation
DX: N28.1 Cyst of kidney, acquired (principal); Z86.39 Personal history of other endocrine, nutritional and metabolic disease
CPT/HCPCS: 76770

== ENCOUNTER → 2019-06-22 | Outpatient (CLI) | payer MEDICARE ==
--- NOTE | 2019-06-22 11:07 | CT ---
EXAMINATION TYPE: CT abdomen w con DATE OF EXAM: 06/22/2019 COMPARISON: CT 11/22/2017, MRI 05/13/2019, ultrasound 05/23/2019 HISTORY: Abnormal US and MRI. No complaints at time of scan CT DLP: 2789 mGycm Automated exposure control for dose reduction was used. TECHNIQUE: Helical acquisition of images was performed from the lung bases through the top of iliac crest to include entire abdomen. CONTRAST: Performed with Oral Contrast and with IV Contrast, patient injected with 100 mL of Isovue 300. FINDINGS: There are coronary artery calcifications present. Suspect a hiatal hernia at the distal eso phagus. LUNG BASES: Some probable basilar scarring is present, some posterior pleural calcification is noted on the right. There is abnormal thickening along the inferior aspect of the major fissure on the righ t likely due to some scarring. LIVER/GB: Gallbladder is not seen.. PANCREAS: No significant abnormality is seen. SPLEEN: Subcentimeter focus of increased attenuation within the anterior aspect may represent a small hemangioma.. ADRENALS: Low dense right adrenal mass measures 2.4 cm likely an adenoma KIDNEYS: Low dense focus in the upper pole the left kidney is stable measuring 2.8 cm and showing cys tic Hounsfield unit measurement. Small exophytic cortical cyst present on the right. The inferior asp ect of the right kidney the cystic focus measures 2.4 cm and shows Hounsfield units in the cyst range . BOWEL: Anterior abdominal wall hernia in the midline contains bowel loops, no evident bowel obstructi on. Mouth of the hernia approximately 2.4 cm. Diverticular change is extensive associated with the co jerad. LYMPH NODES: No significant abnormality is appreciated. OSSEOUS STRUCTURES: Facet arthropathy changes are present in the lower lumbar spine, there is degene rative disc change.. FREE AIR: No Free Air visible ASCITES: None visible. RETROPERITONEAL ADENOPATHY: No Retroperitoneal Adenopathy visible. OTHER: Low dense focus associated with what is likely left ovary is incompletely visualized but is me asured at approximately 3 cm. IMPRESSION: FINDINGS LIKELY REPRESENT SIMPLE CYSTS WITHIN THE KIDNEYS. FOLLOW-UP COULD BE PERFORMED TO ASSESS FOR STABILITY. Anterior abdominal wall hernia without bowel obstruction as described. Diverticulosis. Po ssible small cyst associated with the left ovary. Probable right adrenal adenoma, consider follow-up. Coronary artery disease. Question scarring or atelectasis in the right middle lobe, consider follow- up. Postop changes.
== END | disposition home or self-care (01) ==
LOC: RADCTMAIN 09:36
PROVIDERS: ATTEND Family Medicine
DX: K43.9 Ventral hernia without obstruction or gangrene (principal); K57.90 Diverticulosis of intestine, part unspecified, without perforation or abscess without bleeding; N28.9 Disorder of kidney and ureter, unspecified
CPT/HCPCS: 82565; 84520; 74160; 36415; Q9967

== ENCOUNTER 2019-08-19 15:23 | Inpatient (IN) | payer MEDICARE ==
[2019-08-19 16:19] LABS: Anisocytosis Slight; Basophils # (A) 0.1 k/uL (0-0.2); Basophils % (A) 1 %; Eosinophils % (A) 0 %; HCT 34.2 % (34.0-46.0); HGB 10.9 gm/dL (11.4-16.0); Hypochromasia Marked; Lymphocytes # (A) 0.7 k/uL (1.0-4.8); Lymphocytes % (A) 5 %; MCHC 31.9 g/dL (31.0-37.0); MCV 78.4 fL (80.0-100.0); Mean Platelet Volume 7.9; Microcytosis Slight; Monocytes # (A) 0.5 k/uL (0-1.0); Monocytes % (A) 4 %; Neutrophils # (A) 12.1 k/uL (1.3-7.7); Neutrophils % (A) 90 %; Platelet Count 247 k/uL (150-450); RBC 4.37 m/uL (3.80-5.40); RDW 16.3 % (11.5-15.5); WBC 13.5 k/uL (3.8-10.6)
[2019-08-19] MEDS ORDERED: ONDANSETRON 4 MG/2 ML VIAL IVP STA (17:00)
[2019-08-19] MEDS ORDERED: PANTOPRAZOLE 40 MG/10 ML VIAL IVP STA (17:00)
[2019-08-19] MEDS ORDERED: IPRATROPIUM-ALBUTEROL 3 ML NEB INHALATION STA (17:00)
[2019-08-19 17:13] LABS: INR 2.9 (<1.2); Partial Thromboplastin Time 38.5 sec (22.0-30.0); Prothrombin Time 27.9 sec (9.0-12.0)
--- NOTE | 2019-08-19 17:42 | ED ---
SOB HPI - General Chief Complaint: Shortness of Breath Stated Complaint: Vomiting Time Seen by Provider: 08/19/19 16:42 Source: patient, RN notes reviewed, old records reviewed Mode of arrival: wheelchair Limitations: no limitations - History of Present Illness Initial Comments: This is a 4-year-old female the ER for evaluation of shortness of breath sh ortness breath cough may be some chills. Patient has cough that leads to vomiting. Maybe some epigastric abdominal pain. Patient is concerned she may have pneumonia she's had pneumonia in the past and this feels similar to that. Otherwise no recent sick contacts or travel history no current chest pain. No nausea, no diarrhea MD Complaint: shortness of breath, cough -: days(s) Severity: moderate Severity scale (1-10): 2 Quality: aching Consistency: constant Improves With: nothing Worsens With: nothing Known History Of: diabetes Context: recent URI Associated Symptoms: fever, cough, nausea/vomiting - Related Data Home Medications Medication Instructions Recorded Confirmed Metoprolol Tartrate [Lopressor] 50 mg PO BID 08/25/17 08/19/19 Simvastatin [Zocor] 10 mg PO HS 08/25/17 08/19/19 glipiZIDE [Glucotrol] 5 mg PO HS 08/25/17 08/19/19 metFORMIN HCL [Glucophage] 1,000 mg PO AC-BID 08/25/17 08/19/19 Furosemide [Lasix] 40 mg PO DAILY 08/19/19 08/19/19 Omeprazole [PriLOSEC] 20 mg PO DAILY 08/19/19 08/19/19 Potassium Chloride [Klor-Con 20] 20 meq PO DAILY 08/19/19 08/19/19 Warfarin Sodium 2.5 mg PO SUTUTHSA 08/19/19 08/19/19 Warfarin [Coumadin] 1.25 mg PO MOWEFR 08/19/19 08/19/19 amLODIPine [Norvasc] 2.5 mg PO DAILY 08/19/19 08/19/19 Allergies Allergy/AdvReac Type Severity Reaction Status Date / Time azithromycin Allergy Dyspnea & Verified 08/19/19 16:57 nausea ciprofloxacin [From Cipro] Allergy Dyspnea & Verified 08/19/19 16:57 nausea Penicillins Allergy Rash/Hives Verified 08/19/19 16:57 Review of Systems ROS Statement: Those systems with pertinent positive or pertinent negative responses have been documented in the HPI. ROS Other: All systems not noted in ROS Statement are negative. 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 Morbid obesity, mass on right kidney, cellulitis BLE, fall at home History of Any Multi-Drug Resistant Organisms: None Reported Past Surgical History: Breast Surgery, Cholecystectomy, Joint Replacement, Orthopedic Surgery Additional Past Surgical History / Comment(s): thelma knee replac; L shoulder replac.; carpel tunnel vaginal duct cyst; benign breast surg; cataracts; retinal repair left eye Past Anesthesia/Blood Transfusion Reactions: No Reported Reaction Past Psychological History: No Psychological Hx Reported Smoking Status: Never smoker Past Alcohol Use History: None Reported Past Drug Use History: None Reported - Past Family History Father Family Medical History: Deep Vein Thrombosis (DVT) General Exam Limitations: no limitations General appearance: alert, in no apparent distress Head exam: Present: atraumatic, normocephalic, normal inspection Eye exam: Present: normal appearance, EOMI. Absent: scleral icterus, conjunctival injection, periorbital swelling ENT exam: Present: normal exam, mucous membranes moist Neck exam: Present: normal inspection. Absent: tenderness, meningismus, lymphadenopathy Respiratory exam: Present: normal lung sounds bilaterally. Absent: respiratory distress, wheezes, rales, rhonchi, stridor Cardiovascular Exam: Present: regular rate, normal rhythm, normal heart sounds. Absent: systolic murmur, diastolic murmur, rubs, gallop, clicks GI/Abdominal exam: Present: soft, normal bowel sounds. Absent: distended, tenderness, guarding, rebound, rigid Extremities exam: Present: normal inspection, full ROM, normal capillary refill. Absent: tenderness, pedal edema, joint swelling, calf tenderness Back exam: Present: normal inspection Neurological exam: Present: alert, oriented X3, CN II-XII intact Psychiatric exam: Present: normal affect, normal mood Skin exam: Present: warm, dry, intact, normal color. Absent: rash Course Vital Signs 08/19/19 08/19/19 08/19/19 15:42 17:17 17:25 Temperature 98.8 F Pulse Rate 81 86 84 Respiratory 18 Rate Blood Pressure 139/65 O2 Sat by Pulse 93 L Oximetry - Reevaluation(s) Reevaluation #1: 08/19/19 18:14 Medical records reviewed Reevaluation #2: 08/19/19 18:25 Patient symptoms are moderately improved with nausea control and breathing treatment - Consultations Consultation #1: Spoke with Dr. Georges for sound to his agreeable for admission Medical Decision Making - Medical Decision Making 82 female the ER for evaluation of cough congestion fever positive pneumonia on x-ray. We'll admit for IV antibiotics. Patient has multiple medication ALLERGIES, will be started on Rocephin - Lab Data Result diagrams: 08/19/19 16:01 08/19/19 17:34 Lab Results 08/19/19 08/19/19 08/19/19 Range/Units 16:01 16:01 16:01 WBC 13.5 H (3.8-10.6) k/uL RBC 4.37 (3.80-5.40) m/uL Hgb 10.9 L (11.4-16.0) gm/dL Hct 34.2 (34.0-46.0) % MCV 78.4 L (80.0-100.0) fL MCH 25.0 (25.0-35.0) pg MCHC 31.9 (31.0-37.0) g/dL RDW 16.3 H (11.5-15.5) % Plt Count 247 (150-450) k/uL Neutrophils % 90 % Lymphocytes % 5 % Monocytes % 4 % Eosinophils % 0 % Basophils % 1 % Neutrophils # 12.1 H (1.3-7.7) k/uL Lymphocytes # 0.7 L (1.0-4.8) k/uL Monocytes # 0.5 (0-1.0) k/uL Eosinophils # 0.0 (0-0.7) k/uL Basophils # 0.1 (0-0.2) k/uL Hypochromasia Marked Anisocytosis Slight Microcytosis Slight PT 27.9 H (9.0-12.0) sec INR 2.9 H (<1.2) APTT 38.5 H (22.0-30.0) sec Sodium (137-145) mmol/L Potassium (3.5-5.1) mmol/L Chloride (98-107) mmol/L Carbon Dioxide (22-30) mmol/L Anion Gap mmol/L BUN (7-17) mg/dL Creatinine (0.52-1.04) mg/dL Est GFR (CKD-EPI)AfAm (>60 ml/min/1.73 sqM) Est GFR (CKD-EPI)NonAf (>60 ml/min/1.73 sqM) Glucose (74-99) mg/dL Calcium (8.4-10.2) mg/dL Phosphorus (2.5-4.5) mg/dL Magnesium (1.6-2.3) mg/dL Total Bilirubin (0.2-1.3) mg/dL AST (14-36) U/L ALT (9-52) U/L Alkaline Phosphatase (38-126) U/L Troponin I <0.012 (0.000-0.034) ng/mL Total Protein (6.3-8.2) g/dL Albumin (3.5-5.0) g/dL Urine Color Urine Appearance (Clear) Urine pH (5.0-8.0) Ur Specific Sawyer (1.001-1.035) Urine Protein (Negative) Urine Glucose (UA) (Negative) Urine Ketones (Negative) Urine Blood (Negative) Urine Nitrite (Negative) Urine Bilirubin (Negative) Urine Urobilinogen (<2.0) mg/dL Ur Leukocyte Esterase (Negative) Urine RBC (0-5) /hpf Urine WBC (0-5) /hpf Ur Squamous Epith Cells (0-4) /hpf Amorphous Sediment (None) /hpf Urine Mucus (None) /hpf 08/19/19 08/19/19 Range/Units 17:34 17:58 WBC (3.8-10.6) k/uL RBC (3.80-5.40) m/uL Hgb (11.4-16.0) gm/dL Hct (34.0-46.0) % MCV (80.0-100.0) fL MCH (25.0-35.0) pg MCHC (31.0-37.0) g/dL RDW (11.5-15.5) % Plt Count (150-450) k/uL Neutrophils % % Lymphocytes % % Monocytes % % Eosinophils % % Basophils % % Neutrophils # (1.3-7.7) k/uL Lymphocytes # (1.0-4.8) k/uL Monocytes # (0-1.0) k/uL Eosinophils # (0-0.7) k/uL Basophils # (0-0.2) k/uL Hypochromasia Anisocytosis Microcytosis PT (9.0-12.0) sec INR (<1.2) APTT (22.0-30.0) sec Sodium 138 (137-145) mmol/L Potassium 4.1 (3.5-5.1) mmol/L Chloride 102 (98-107) mmol/L Carbon Dioxide 26 (22-30) mmol/L Anion Gap 10 mmol/L BUN 17 (7-17) mg/dL Creatinine 0.62 (0.52-1.04) mg/dL Est GFR (CKD-EPI)AfAm >90 (>60 ml/min/1.73 sqM) Est GFR (CKD-EPI)NonAf 84 (>60 ml/min/1.73 sqM) Glucose 170 H (74-99) mg/dL Calcium 9.3 (8.4-10.2) mg/dL Phosphorus 2.7 (2.5-4.5) mg/dL Magnesium 1.6 (1.6-2.3) mg/dL Total Bilirubin 0.6 (0.2-1.3) mg/dL AST 17 (14-36) U/L ALT 15 (9-52) U/L Alkaline Phosphatase 71 (38-126) U/L Troponin I (0.000-0.034) ng/mL Total Protein 7.3 (6.3-8.2) g/dL Albumin 3.9 (3.5-5.0) g/dL Urine Color Yellow Urine Appearance Clear (Clear) Urine pH 6.5 (5.0-8.0) Ur Specific Sawyer 1.024 (1.001-1.035) Urine Protein 2+ H (Negative) Urine Glucose (UA) 3+ H (Negative) Urine Ketones Negative (Negative) Urine Blood Small H (Negative) Urine Nitrite Negative (Negative) Urine Bilirubin Negative (Negative) Urine Urobilinogen <2.0 (<2.0) mg/dL Ur Leukocyte Esterase Negative (Negative) Urine RBC 10 H (0-5) /hpf Urine WBC 4 (0-5) /hpf Ur Squamous Epith Cells 1 (0-4) /hpf Amorphous Sediment Occasional H (None) /hpf Urine Mucus Rare H (None) /hpf - EKG Data -: EKG Interpreted by Me (EKG shows nsr 82 pr 192 qrs 82 qtC 432) - Radiology Data Radiology results: report reviewed (X-ray abdominal series the chest shows positive pneumonia), image reviewed Disposition Clinical Impression: Nausea and vomiting, Community acquired pneumonia Disposition: ADMITTED IP TO THIS HOSP Condition: Fair Is patient prescribed a controlled substance at d/c from ED?: No Referrals: Lexis Mcdowell MD [Primary Care Provider] - 1-2 days
--- NOTE | 2019-08-19 18:07 | XR ---
EXAMINATION TYPE: XR abdomen acute w cxr DATE OF EXAM: 08/19/2019 COMPARISON: November 22, 2017 HISTORY: Pain and vomiting TECHNIQUE: 5 views FINDINGS: There is a 5 cm patch of airspace infiltrate in the left midlung. There is no heart failure. There is also mild infiltrate in the left lower lobe behind the heart. There is no sign of intestinal obstruction or pneumoperitoneum. Fecal pattern is normal. There are no pathologic calcifications over the kidneys. There is no evidence of abdominal mass. There is moderat e arthritic change in the hip joints and worse on the left side. IMPRESSION: There is new airspace pneumonia left lower lobe compared to last exam. Nonacute abdomen.
[2019-08-19 18:08] LABS: ALT 15 U/L (9-52); AST 17 U/L (14-36); African American GFR (CKD) >90 (>60 ml/min/1.73 sqM); Albumin 3.9 g/dL (3.5-5.0); Alkaline Phosphatase 71 U/L (38-126); Anion Gap 10 mmol/L; Blood Urea Nitrogen 17 mg/dL (7-17); Calcium 9.3 mg/dL (8.4-10.2); Carbon Dioxide 26 mmol/L (22-30); Chloride 102 mmol/L (98-107); Glucose 170 mg/dL (74-99); Magnesium 1.6 mg/dL (1.6-2.3); Phosphorus 2.7 mg/dL (2.5-4.5); Potassium 4.1 mmol/L (3.5-5.1); Sodium 138 mmol/L (137-145); Total Bilirubin 0.6 mg/dL (0.2-1.3); Total Protein 7.3 g/dL (6.3-8.2)
[2019-08-19 18:18] LABS: Amorphous Sediment,Urine Occasional /hpf; Appearance,Urine Clear (Clear); Bilirubin,Urine Negative (Negative); Blood,Urine Small (Negative); Color,Urine Yellow; Glucose,Urine (UA) 3+ (Negative); Ketones,Urine Negative (Negative); Leukocyte Esterase,Urine Negative (Negative); Mucus,Urine Rare /hpf; Nitrite,Urine Negative (Negative); PH, Urine 6.5 (5.0-8.0); Protein,Urine 2+ (Negative); RBC,Urine 10 /hpf (0-5); Specific Gravity,Urine 1.024 (1.001-1.035); Squamous Epithelial Cell,Urine 1 /hpf (0-4); Urobilinogen,Urine <2.0 mg/dL (<2.0)
[2019-08-19] MEDS ORDERED: PNEUMONIA PROTOCOL UTILIZED 1 EACH MISC PO PRN (18:22)
[2019-08-19] MEDS: SODIUM CHLORIDE 0.9% 1,000 ML IV SCH (19:55)
[2019-08-19] MEDS ORDERED: WARFARIN 1.25 MG TAB PO ONE (20:45)
[2019-08-19] MEDS: METOPROLOL TARTRATE 50 MG TAB PO SCH (21:52)
[2019-08-19] MEDS: ATORVASTATIN 10 MG TAB PO SCH (21:54)
[2019-08-19] MEDS: DOXYCYCLINE 100 MG CAP PO SCH (21:54)
[2019-08-19 21:58] LABS: Glucose,Whole Blood 149 mg/dL (75-99)
[2019-08-19] MEDS: INSULIN ASPART (NovoLOG) 100 UNIT/ML VIAL SQ SCH (22:02)
--- NOTE | 2019-08-19 22:36 | P.HPIM ---
History of Present Illness H&P Date: 08/19/19 Chief Complaint: Coughing and vomiting 84-year-old female with history of diabetes, venous thrombus involves him on Coumadin Patient comes in today due to 1 day history of feeling very sick with coughing productive of creamy phlegm nonbloody cough attacks associated with vomiting nonbloody nonbilious. Patient reports chills no fever. Denies any chest pain, denies any sick contact or recent traveling. Denies any recent use of antibiotics or hospitalization. Patient was not feeling well for which her daughters decided to bring her to the hospital for evaluation. She also reports decreased by mouth intake today with feeling generalized malaise and sick denies any runny nose or sore throat denies any muscle aches. In the ED flu test was negative. Chest x-ray showed left lower lobe pneumonia. Patient was admitted for treatment of pneumonia she showed some improvement with breathing treatments will be observed overnight for any fevers and will follow up cultures patient was started on IV antibiotics Otherwise patient denies any GI bleeding denies any abdominal pain denies any focal neuro deficits denies any urinary symptoms denies any sick contacts or re cent travel Review of Systems Pertinent positives as noted in HPI. 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 Morbid obesity, mass on right kidney, cellulitis BLE, fall at home History of Any Multi-Drug Resistant Organisms: None Reported Past Surgical History: Breast Surgery, Cholecystectomy, Joint Replacement, Orthopedic Surgery Additional Past Surgical History / Comment(s): thelma knee replac; L shoulder replac.; carpel tunnel vaginal duct cyst; benign breast surg; cataracts; retinal repair left eye Past Anesthesia/Blood Transfusion Reactions: No Reported Reaction Past Psychological History: No Psychological Hx Reported Smoking Status: Never smoker Past Alcohol Use History: None Reported Past Drug Use History: None Reported - Past Family History Father Family Medical History: Deep Vein Thrombosis (DVT) Medications and Allergies Home Medications Medication Instructions Recorded Confirmed Type Metoprolol Tartrate [Lopressor] 50 mg PO BID 08/25/17 08/19/19 History Simvastatin [Zocor] 10 mg PO HS 08/25/17 08/19/19 History glipiZIDE [Glucotrol] 5 mg PO HS 08/25/17 08/19/19 History metFORMIN HCL [Glucophage] 1,000 mg PO AC-BID 08/25/17 08/19/19 History Furosemide [Lasix] 40 mg PO DAILY 08/19/19 08/19/19 History Omeprazole [PriLOSEC] 20 mg PO DAILY 08/19/19 08/19/19 History Potassium Chloride [Klor-Con 20] 20 meq PO DAILY 08/19/19 08/19/19 History Warfarin Sodium 2.5 mg PO SUTUTHSA 08/19/19 08/19/19 History Warfarin [Coumadin] 1.25 mg PO MOWEFR 08/19/19 08/19/19 History amLODIPine [Norvasc] 2.5 mg PO DAILY 08/19/19 08/19/19 History Allergies Allergy/AdvReac Type Severity Reaction Status Date / Time azithromycin Allergy Dyspnea & Verified 08/19/19 16:57 nausea ciprofloxacin [From Cipro] Allergy Dyspnea & Verified 08/19/19 16:57 nausea Penicillins Allergy Rash/Hives Verified 08/19/19 16:57 Physical Exam Vitals: Vital Signs Temp Pulse Resp BP Pulse Ox 08/19/19 19:49 79 18 139/80 93 L 08/19/19 17:25 84 08/19/19 17:17 86 08/19/19 15:42 98.8 F 81 18 139/65 93 L Intake and Output 08/19/19 08/19/19 08/19/19 06:59 14:59 22:59 Other: Weight 141.521 kg Constitutional: No acute distress, conversant, pleasant Eyes: Anicteric sclerae, moist conjunctiva, Pupils equal round reactive to light ENMT: NC/AT Oropharynx clear, no erythema, exudates Neck: Supple, FROM, no masses, or JVD No carotid bruits No thyromegaly Lungs: Good breath sounds bilaterally, rhonchi at left lung base Clear to percussion Normal respiratory effort, no accessory muscle use Cardiovascular: Heart regular in rate and rhythm, Systolic murmur, no, gallops, or rubs Nonpitting edema bilaterally in the legs Abdominal: Soft Nontender, no guarding, rebound or rigidity Abdomen moving with respiration Normoactive bowel sounds No hepatomegaly, No splenomegaly No palpable mass No abdominal wall hernia noted Skin: Normal temperature, tone, texture, turgor No induration No subcutaneous nodules Chronic skin changes bilateral legs Extremities: No digital cyanosis No clubbing Pedal pulses intact and symmetrical Radial pulses intact and symmetrical No calf tenderness Psychiatric: Alert and oriented to person, place and time Appropriate affect fair judgment Neuro Muscles Strength 4 /5 in all 4 extremities Sensation to light touch grossly present throughout Cranial nerves II-XII grossly intact No focal sensory deficits Lymphatics: no palpable cervical or supraclavicular , or inguinal lymph nodes Results CBC & Chem 7: 08/19/19 16:01 08/19/19 17:34 Labs: Abnormal Lab Results - Last 24 Hours (Table) 08/19/19 08/19/19 08/19/19 Range/Units 16:01 16:01 17:34 WBC 13.5 H (3.8-10.6) k/uL Hgb 10.9 L (11.4-16.0) gm/dL MCV 78.4 L (80.0-100.0) fL RDW 16.3 H (11.5-15.5) % Neutrophils # 12.1 H (1.3-7.7) k/uL Lymphocytes # 0.7 L (1.0-4.8) k/uL PT 27.9 H (9.0-12.0) sec INR 2.9 H (<1.2) APTT 38.5 H (22.0-30.0) sec Glucose 170 H (74-99) mg/dL Urine Protein (Negative) Urine Glucose (UA) (Negative) Urine Blood (Negative) Urine RBC (0-5) /hpf Amorphous Sediment (None) /hpf Urine Mucus (None) /hpf 08/19/19 Range/Units 17:58 WBC (3.8-10.6) k/uL Hgb (11.4-16.0) gm/dL MCV (80.0-100.0) fL RDW (11.5-15.5) % Neutrophils # (1.3-7.7) k/uL Lymphocytes # (1.0-4.8) k/uL PT (9.0-12.0) sec INR (<1.2) APTT (22.0-30.0) sec Glucose (74-99) mg/dL Urine Protein 2+ H (Negative) Urine Glucose (UA) 3+ H (Negative) Urine Blood Small H (Negative) Urine RBC 10 H (0-5) /hpf Amorphous Sediment Occasional H (None) /hpf Urine Mucus Rare H (None) /hpf Assessment and Plan Assessment: 84-year-old female with history of venous thromboembolism hypertension diabetes admitted as an inpatient with anticipated length of stay more than 2 midnights for acute community-acquired pneumonia Plan: Community-acquired pneumonia Patient started on antibiotics Follow-up cultures Tylenol for fevers Influenza negative Breathing treatment as needed Anemia microcytic Check iron studies Patient denies GI bleeding Chronic conditions Venous thromboembolic him on Coumadin currently INR therapeutic Hypertension continue home meds Diabetes mellitus hold oral hypoglycemic agents, start patient on insulin sliding scale CODE STATUS: Full code DVT prophylaxis: On Coumadin for venous thromboembolism history, INR therapeutic Discussed with: Patient, ER, *RN Anticipated length of stay more than [address]: Home A total of 65 minutes was spent on the care of this complex patient more than 50% of the time was spent in counseling and care coordination.
[2019-08-20 01:22] LABS: Appearance,Urine Clear (Clear); Bilirubin,Urine Negative (Negative); Blood,Urine Moderate (Negative); Color,Urine Yellow; Glucose,Urine (UA) Trace (Negative); Hyaline Casts,Urine 4 /lpf (0-2); Ketones,Urine Negative (Negative); Leukocyte Esterase,Urine Negative (Negative); Mucus,Urine Few /hpf; Nitrite,Urine Negative (Negative); PH, Urine 5.5 (5.0-8.0); Protein,Urine 1+ (Negative); RBC,Urine 2 /hpf (0-5); Specific Gravity,Urine 1.029 (1.001-1.035); Squamous Epithelial Cell,Urine 4 /hpf (0-4); WBC,Urine 2 /hpf (0-5)
[2019-08-20] MEDS: ACETAMINOPHEN TAB 325 MG TAB PO PRN ×2 (02:16→23:15)
[2019-08-20] MEDS: SODIUM CHLORIDE 0.9% 1,000 ML IV SCH (04:40)
[2019-08-20 07:16] LABS: Glucose,Whole Blood 108 mg/dL (75-99)
[2019-08-20] MEDS: INSULIN ASPART (NovoLOG) 100 UNIT/ML VIAL SQ SCH ×4 (07:21→20:56)
[2019-08-20 07:41] LABS: INR 2.6 (<1.2); Prothrombin Time 25.6 sec (9.0-12.0)
[2019-08-20] MEDS: amLODIPine 2.5 MG TAB PO SCH (07:49)
[2019-08-20] MEDS: DOXYCYCLINE 100 MG CAP PO SCH ×2 (07:49→20:22)
[2019-08-20] MEDS: PANTOPRAZOLE 40 MG TABLET PO SCH (07:49)
[2019-08-20] MEDS: METOPROLOL TARTRATE 50 MG TAB PO SCH ×2 (07:49→20:51)
[2019-08-20] MEDS ORDERED: ENOXAPARIN 40 MG/0.4 ML SYRINGE SQ SCH (09:00)
--- NOTE | 2019-08-20 11:10 | XR ---
EXAMINATION TYPE: XR chest 2V DATE OF EXAM: 08/20/2019 COMPARISON: 08/19/2019 TECHNIQUE: PA and lateral views submitted. HISTORY: Pneumonia FINDINGS: There is a interstitial pattern with left lower lobe infiltrate. Postsurgical change left shoulder. A rthropathy right shoulder. No pneumothorax. Atherosclerotic change aorta. Hypertrophic and degenerati ve change of the spine. Masslike density left upper lobe. IMPRESSION: 1. Left lower lobe infiltrate with interstitial pattern. Could been the basis of mild venous congesti on. Underlying pneumonia in the differential. Findings suspicious for left upper lobe pulmonary mass with CT scan recommended.
[2019-08-20 11:40] LABS: Ferritin 25.7 ng/mL (10.0-291.0)
[2019-08-20 11:42] LABS: Iron Saturation 5.36 (12.00-45.00)
[2019-08-20 11:50] LABS: Glucose,Whole Blood 129 mg/dL (75-99)
[2019-08-20] MEDS ORDERED: RX INFO: IV CONTRAST WAS GIVEN 1 EACH MISC MISCELLANE PRN (13:46)
--- NOTE | 2019-08-20 13:57 | P.PN ---
Subjective Progress Note Date: 08/20/19 Principal diagnosis: Community acquired pneumonia Patient was seen and examined. No acute events overnight. Patient reports similar symptoms to that of her initial presentation. She complains cough productive of creamy sputum. Also complains of blood streaks in her sputum. Complains shortness of breath especially when she stands up with ambulation with walker washroom. She denies any chest pain or palpitations. No nausea or vomiting. No fever or chills. Objective - Vital Signs Vital signs: Vital Signs Temp 98.4 F 08/20/19 07:16 Pulse 93 08/20/19 09:50 Resp 16 08/20/19 08:00 BP 101/62 08/20/19 07:16 Pulse Ox 95 08/20/19 07:16 Intake & Output 08/19/19 08/20/19 08/20/19 18:59 06:59 18:59 Intake Total 400 Balance 400 Weight 141.521 kg Intake: Oral 400 Other: Voiding Method Bedside Commode Bedside Commode # Voids 2 - Exam General: [non toxic], [no distress], [appears at stated age] Derm: [warm], [dry] Head: [atraumatic], [normocephalic], [symmetric] Eyes: [EOMI], [no lid lag], [anicteric sclera] Mouth: [no lip lesion], [mucus membranes moist] Cardiovascular: [S1S2 reg], [systolic murmur], [positive DP pulse bilateral], Lungs: [Decreased breath sounds bilateral, left lower], [no rhonchi, no rales] , [no accessory muscle use] Abdominal: [soft], [ nontender to palpation], [no guarding], [no appreciable organomegaly] Ext: [no gross muscle atrophy], [3+ edema bilaterally with chronic venous stasis changes], [no contractures] Neuro: [no focal neuro deficits] Psych: [Alert], [oriented], [appropriate affect] - Labs CBC & Chem 7: 08/19/19 16:01 08/19/19 17:34 Labs: Abnormal Lab Results - Last 24 Hours (Table) 08/19/19 08/19/19 08/19/19 Range/Units 16:01 16:01 17:34 WBC 13.5 H (3.8-10.6) k/uL Hgb 10.9 L (11.4-16.0) gm/dL MCV 78.4 L (80.0-100.0) fL RDW 16.3 H (11.5-15.5) % Neutrophils # 12.1 H (1.3-7.7) k/uL Lymphocytes # 0.7 L (1.0-4.8) k/uL PT 27.9 H (9.0-12.0) sec INR 2.9 H (<1.2) APTT 38.5 H (22.0-30.0) sec Glucose 170 H (74-99) mg/dL POC Glucose (mg/dL) (75-99) mg/dL Iron (50-170) ug/dL Iron Saturation (12.00-45.00) Urine Protein (Negative) Urine Glucose (UA) (Negative) Urine Blood (Negative) Urine RBC (0-5) /hpf Amorphous Sediment (None) /hpf Hyaline Casts (0-2) /lpf Urine Mucus (None) /hpf 08/19/19 08/19/19 08/20/19 Range/Units 17:58 21:56 01:10 WBC (3.8-10.6) k/uL Hgb (11.4-16.0) gm/dL MCV (80.0-100.0) fL RDW (11.5-15.5) % Neutrophils # (1.3-7.7) k/uL Lymphocytes # (1.0-4.8) k/uL PT (9.0-12.0) sec INR (<1.2) APTT (22.0-30.0) sec Glucose (74-99) mg/dL POC Glucose (mg/dL) 149 H (75-99) mg/dL Iron (50-170) ug/dL Iron Saturation (12.00-45.00) Urine Protein 2+ H 1+ H (Negative) Urine Glucose (UA) 3+ H Trace H (Negative) Urine Blood Small H Moderate H (Negative) Urine RBC 10 H (0-5) /hpf Amorphous Sediment Occasional H (None) /hpf Hyaline Casts 4 H (0-2) /lpf Urine Mucus Rare H Few H (None) /hpf 08/20/19 08/20/19 08/20/19 Range/Units 07:10 07:10 07:13 WBC (3.8-10.6) k/uL Hgb (11.4-16.0) gm/dL MCV (80.0-100.0) fL RDW (11.5-15.5) % Neutrophils # (1.3-7.7) k/uL Lymphocytes # (1.0-4.8) k/uL PT 25.6 H (9.0-12.0) sec INR 2.6 H (<1.2) APTT (22.0-30.0) sec Glucose (74-99) mg/dL POC Glucose (mg/dL) 108 H (75-99) mg/dL Iron 18 L (50-170) ug/dL Iron Saturation 5.36 L (12.00-45.00) Urine Protein (Negative) Urine Glucose (UA) (Negative) Urine Blood (Negative) Urine RBC (0-5) /hpf Amorphous Sediment (None) /hpf Hyaline Casts (0-2) /lpf Urine Mucus (None) /hpf 08/20/19 Range/Units 11:46 WBC (3.8-10.6) k/uL Hgb (11.4-16.0) gm/dL MCV (80.0-100.0) fL RDW (11.5-15.5) % Neutrophils # (1.3-7.7) k/uL Lymphocytes # (1.0-4.8) k/uL PT (9.0-12.0) sec INR (<1.2) APTT (22.0-30.0) sec Glucose (74-99) mg/dL POC Glucose (mg/dL) 129 H (75-99) mg/dL Iron (50-170) ug/dL Iron Saturation (12.00-45.00) Urine Protein (Negative) Urine Glucose (UA) (Negative) Urine Blood (Negative) Urine RBC (0-5) /hpf Amorphous Sediment (None) /hpf Hyaline Casts (0-2) /lpf Urine Mucus (None) /hpf Assessment and Plan Assessment: Assessment and Plan Community-acquired pneumonia with possible underlying mass History of DVT/PE Diabetes mellitus Hypertension Hyperlipidemia Seen on chest x-ray and KUB. Plans: Continue Rocephin and doxycycline. Mucinex scheduled for cough. DuoNeb as needed for shortness of breath and wheezing. Tylenol as needed for fever. Obtain CT chest for possible underlying mass. Follow-up echocardiogram. Follow sputum culture, blood cultures. Follow pulmonology consultation. Lifelong anticoagulation. Plans: Continue Coumadin maintain INR 2-3. [id number] glucose 129. Plans: Insulin sliding scale. Regular Accu-Cheks. Hypoglycemic precautions. Diabetic diet. BP 101/62. Pulse: Continue amlodipine. Monitor vitals, adjust medications as necessary. Plans: Lipitor bedtime. [Patient admitted for community-acquired pneumonia. Echocardiogram pending. CT chest pending possible underlying mass. Follow pulmonology recommendations. Likely DC in 1-2 days.]
--- NOTE | 2019-08-20 16:36 | CT ---
EXAMINATION TYPE: CT chest w con DATE OF EXAM: 08/20/2019 COMPARISON: Radiograph same day HISTORY: 84-year-old female Upper lobe mass. Pt in hospital for pneumonia. Isovue 300/35 ml. TECHNIQUE: Contiguous axial scanning of the chest after the administration of 35 mL of Isovue 300. Pt extravasated 5 ml. Evaluated by Rad RN. The extravasation will be followed inpatient. Coronal/sagitt al reconstructions performed. CT DLP: 898mGycm. Automatic exposure control utilized for a dose reduction. FINDINGS: Prominent layering fluid within the esophagus. Heart borderline enlarged without pericardial effusion. Aortic valvular and coronary vessel calcifica tions are present. Ectatic ascending aorta 3.9 cm with bovine configuration. Mild atherosclerotic arch calcifications. L arge caliber to the main right and left pulmonary arteries measuring up to 3.6 cm. Scattered prominent but nonenlarged mediastinal lymph nodes measuring up to 7 mm. There is trace left pleural effusion with patchy and confluent nodular and groundglass densities thro ughout the left mid and lower lung. Subsegmental atelectasis lateral right middle lobe. Additional pe ribronchial vascular nodularity in the right upper lobe, for example on axial image 22. Low density nodularity right adrenal gland measures up to 2.3 cm, suspect lipid rich adrenal adenoma. Hypodense lesion, likely cyst measuring 2.6 cm upper pole left kidney. Bones: Moderate to advanced endplate spondylosis and facet arthropathy. Grade 1 anterolisthesis from T1 through T5 levels. IMPRESSION: 1. CAD and pulmonary arterial hypertension. 2. Peribronchovascular patchy nodularity and groundglass in the left greater than right mid and lower lungs. Correlate for possible etiologies including aspiration, INTEGRATION LEAD, and atypical pneumonias. 3. Prominent layering fluid within the esophagus. This could reflect esophageal dysmotility or gastro esophageal reflux. Note that it may place the patient at risk for aspiration.
[2019-08-20] MEDS: IPRATROPIUM-ALBUTEROL 3 ML NEB INHALATION PRN ×2 (16:50→21:01)
[2019-08-20 17:25] LABS: Glucose,Whole Blood 152 mg/dL (75-99)
[2019-08-20] MEDS: guaiFENesin 600 MG TABLET.ER PO SCH (17:43)
[2019-08-20] MEDS ORDERED: WARFARIN 1.25 MG TAB PO ONE (18:00)
[2019-08-20] MEDS: ATORVASTATIN 10 MG TAB PO SCH (20:22)
[2019-08-20 20:51] LABS: Glucose,Whole Blood 146 mg/dL (75-99)
[2019-08-21 02:36] LABS: Glucose,Whole Blood 124 mg/dL (75-99)
[2019-08-21 07:05] LABS: Glucose,Whole Blood 121 mg/dL (75-99)
[2019-08-21 07:43] LABS: Prothrombin Time 19.2 sec (9.0-12.0)
[2019-08-21] MEDS: INSULIN ASPART (NovoLOG) 100 UNIT/ML VIAL SQ SCH ×4 (08:06→21:43)
[2019-08-21] MEDS: guaiFENesin 600 MG TABLET.ER PO SCH ×2 (08:07→21:43)
[2019-08-21] MEDS: DOXYCYCLINE 100 MG CAP PO SCH ×2 (08:07→21:43)
[2019-08-21] MEDS: PANTOPRAZOLE 40 MG TABLET PO SCH (08:07)
[2019-08-21] MEDS: METOPROLOL TARTRATE 50 MG TAB PO SCH ×2 (08:07→21:43)
[2019-08-21] MEDS: amLODIPine 2.5 MG TAB PO SCH (08:07)
[2019-08-21 08:54] LABS: African American GFR (CKD) >90 (>60 ml/min/1.73 sqM); Anion Gap 7 mmol/L; Blood Urea Nitrogen 18 mg/dL (7-17); Calcium 8.7 mg/dL (8.4-10.2); Carbon Dioxide 27 mmol/L (22-30); Chloride 104 mmol/L (98-107); Glucose 120 mg/dL (74-99); Sodium 138 mmol/L (137-145)
--- NOTE | 2019-08-21 09:12 | P.PN ---
Subjective Progress Note Date: 08/21/19 Principal diagnosis: Community acquired pneumonia Patient was seen and examined. No acute events overnight. Patient reports improvement in her symptoms to that of her initial presentation. Patient reports resolution of her cough. Per RN, patient with shortness of breath and desaturating into the 80s especially when she stands up with ambulation with walker washroom. She denies any chest pain or palpitations. No nausea or vomiting. No fever or chills. Spoke to daughter on phone. Objective - Vital Signs Vital signs: Vital Signs Temp 98.1 F 08/21/19 03:59 Pulse 60 08/21/19 03:59 Resp 18 08/21/19 03:59 BP 106/68 08/21/19 03:59 Pulse Ox 95 08/21/19 03:59 Intake & Output 08/20/19 08/21/19 08/21/19 18:59 06:59 18:59 Intake Total 540 Balance 540 Intake: Oral 540 Other: Voiding Method Bedside Commode Bedside Commode # Voids 3 2 # Bowel Movements 1 - Exam General: [non toxic], [no distress], [appears at stated age] Derm: [warm], [dry] Head: [atraumatic], [normocephalic], [symmetric] Eyes: [EOMI], [no lid lag], [anicteric sclera] Mouth: [no lip lesion], [mucus membranes moist] Cardiovascular: [S1S2 reg], [systolic murmur], [positive DP pulse bilateral], Lungs: [Decreased breath sounds bilateral, left lower], [no rhonchi, no rales] , [no accessory muscle use] Abdominal: [soft], [ nontender to palpation], [no guarding], [no appreciable organomegaly] Ext: [no gross muscle atrophy], [3+ edema bilaterally with chronic venous stasis changes], [no contractures] Neuro: [no focal neuro deficits] Psych: [Alert], [oriented], [appropriate affect] - Labs CBC & Chem 7: 08/19/19 16:01 08/21/19 07:21 Labs: Abnormal Lab Results - Last 24 Hours (Table) 08/20/19 08/20/19 08/20/19 Range/Units 07:10 11:46 17:08 PT (9.0-12.0) sec INR (<1.2) BUN (7-17) mg/dL Glucose (74-99) mg/dL POC Glucose (mg/dL) 129 H 152 H (75-99) mg/dL Iron 18 L (50-170) ug/dL Iron Saturation 5.36 L (12.00-45.00) 08/20/19 08/21/19 08/21/19 Range/Units 20:47 02:31 07:04 PT (9.0-12.0) sec INR (<1.2) BUN (7-17) mg/dL Glucose (74-99) mg/dL POC Glucose (mg/dL) 146 H 124 H 121 H (75-99) mg/dL Iron (50-170) ug/dL Iron Saturation (12.00-45.00) 08/21/19 08/21/19 Range/Units 07:21 07:21 PT 19.2 H (9.0-12.0) sec INR 2.0 H (<1.2) BUN 18 H (7-17) mg/dL Glucose 120 H (74-99) mg/dL POC Glucose (mg/dL) (75-99) mg/dL Iron (50-170) ug/dL Iron Saturation (12.00-45.00) Microbiology - Last 24 Hours (Table) 08/20/19 10:30 Gram Stain - Preliminary Sputum Sputum Culture - Preliminary 08/19/19 19:50 Blood Culture - Preliminary Blood No Growth after 24 hours Assessment and Plan Assessment: Assessment and Plan Community-acquired pneumonia with possible underlying mass 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 CT chest shows trace left pleural effusion with patchy nodular groundglass densities, low density nodularity in the right adrenal gland and hypodense lesion likely cyst in the left kidney. Plans: Continue Rocephin and doxycycline. Mucinex scheduled for cough. DuoNeb as needed for shortness of breath and wheezing. Tylenol as needed for fever. Follow-up echocardiogram. Follow sputum culture, blood cultures. Follow pulmonology consultation. As seen on CT chest. Plans: Follow-up with PCP regarding kidney and adrenal mass. No immediate concerns. Lifelong anticoagulation. Plans: Continue Coumadin maintain INR 2-3. [id number] glucose 121. Plans: Insulin sliding scale. Regular Accu-Cheks. Hypoglycemic precautions. Diabetic diet. BP 106/68. Pulse: Continue amlodipine. Monitor vitals, adjust medications as necessary. Plans: Lipitor bedtime. [Patient admitted for community-acquired pneumonia. Echocardiogram pending. Follow pulmonology recommendations. Discussed with RN, wean oxygen and add humidifier. PT evaluation for possible inpatient rehab. Likely DC in 1-2 days.]
[2019-08-21 09:14] LABS: Anisocytosis Slight; HCT 29.8 % (34.0-46.0); Hypochromasia Moderate; MCH 24.4 pg (25.0-35.0); MCHC 30.9 g/dL (31.0-37.0); MCV 78.9 fL (80.0-100.0); Mean Platelet Volume 8.7; Microcytosis Slight; Platelet Count 172 k/uL (150-450); RBC 3.78 m/uL (3.80-5.40); WBC 4.9 k/uL (3.8-10.6)
[2019-08-21 09:19] LABS: HGB 9.2 gm/dL (11.4-16.0)
[2019-08-21] MEDS: IPRATROPIUM-ALBUTEROL 3 ML NEB INHALATION PRN (09:51)
[2019-08-21 12:17] LABS: Glucose,Whole Blood 141 mg/dL (75-99)
--- NOTE | 2019-08-21 13:47 | ECHOF ---
Referral Reason:SOB MEASUREMENTS -------- HEIGHT: 167.6 cm WEIGHT: 141.5 kg BP: 101/62 RVIDd: 4.1 cm (< 3.3) IVSd: 1.6 cm (0.6 - 1.1) LVIDd: 3.1 cm (3.9 - 5.3) LVPWd: 1.7 cm (0.6 - 1.1) IVSs: 2.4 cm LVIDs: 2.3 cm LVPWs: 2.1 cm LAESV Index (A-L): 44.79 ml/m Ao Diam: 3.1 cm (2.0 - 3.7) AV Cusp: 1.1 cm (1.5 - 2.6) LA Diam: 4.1 cm (2.7 - 3.8) EPSS: 0.6 cm MV E Jake: 0.90 m/s MV DecT: 242 ms MV A Jake: 0.79 m/s MV E/A Ratio: 1.14 AV maxP.55 mmHg AV meanP.54 mmHg RAP: 5.00 mmHg RVSP: 60.67 mmHg MV EF SLOPE: 81.34 mm/s (70 - 150) MV EXCURSION: 1.82 cm (> 18.000) FINDINGS -------- Sinus rhythm. The left ventricular size is normal. There is moderate concentric left ventricular hypertrophy. O verall left ventricular systolic function is normal with, an EF between 55 - 60 %. Mitral Doppler i nflow pattern suggests diastolic filling abnormality. Stage II. The right ventricle is moderately enlarged. Left atrium is severely dilated by volume. RA appears enlarged Interatrial and interventricular septum intact. There is no evidence of aortic regurgitation. Moderate to severe aortic stenosis with peak/mean pre ssure gradient of 53.55mmHg / 36.54mmHg, the aortic valve area by continuity equation is 0.7cm. Mild mitral annular calcification present. Mild mitral regurgitation is present. Severe tricuspid regurgitation present. There is severe pulmonary hypertension. The right ventric ular systolic pressure, as measured by Doppler, is 60.67mmHg. Trace/mild (physiologic) pulmonic regurgitation. The aortic root size is normal. The inferior vena cava is mildly dilated. There is no pericardial effusion. CONCLUSIONS -------- 1. Sinus rhythm. 2. The left ventricular size is normal. 3. There is moderate concentric left ventricular hypertrophy. 4. Overall left ventricular systolic function is normal with, an EF between 55 - 60 %. 5. Mitral Doppler inflow pattern suggests diastolic filling abnormality. Stage II. 6. The right ventricle is moderately enlarged. 7. Left atrium is severely dilated by volume. 8. RA appears enlarged 9. Interatrial and interventricular septum intact. 10. There is no evidence of aortic regurgitation. 11. Moderate to severe aortic stenosis with peak/mean pressure gradient of 53.55mmHg / 36.54mmHg, the aortic valve area by continuity equation is 0.7cm. 12. Mild mitral annular calcification present. 13. Mild mitral regurgitation is present. 14. Severe tricuspid regurgitation present. 15. There is severe pulmonary hypertension. 16. The right ventricular systolic pressure, as measured by Doppler, is 60.67mmHg. 17. Trace/mild (physiologic) pulmonic regurgitation. 18. The aortic root size is normal. 19. The inferior vena cava is mildly dilated. 20. There is no pericardial effusion. SUBPOENA SERVER: Vandana Bateman RDCS
--- NOTE | 2019-08-21 13:54 | P.CNPUL ---
History of Present Illness Consult date: 08/21/19 Requesting physician: Amaya Georges Reason for consult: dyspnea Chief complaint: Shortness of breath, cough, chills, vomiting, abdominal pain History of present illness: This is a very pleasant 84-year-old female patient who follows with Dr. Mcdowell as her primary care physician. She ihas a history of diabetes mellitus, GERD, hypertension, hyperlipidemia, osteoarthritis, DVT/PE anticoagulated with warfarin, morbid obesity, chronic venous stasis changes of lower extremities. She is a lifelong nonsmoker. She is not been seen by a antenna installer in the past. She is on albuterol HFA in the outpatient setting for occasional shortness of breath. She presented here to the emergency room on 08/19/2019 with complaints of increasing shortness of breath, cough, chills, nausea and vomiting, epigastric abdominal pain. Acute abdominal series revealed a nonacute abdomen however there is airspace disease in the left lower lobe. Chest x-ray revealed a left lower lobe infiltrate with interstitial pattern. Some mild venous congestion. She is admitted for left lower lobe pneumonia. She is seen today in consultation. Awake and alert in no acute distress. Sitting up in a chair at the bedside. Maintaining O2 saturations in the mid 90s on 2 L/m per nasal cannula. She's afebrile. Hemodynamically stable. Blood and urine cultures pending. White count 4.9. Hemoglobin 9.2. INR 2.0. Creatinine 0.67. She's been initiated on DuoNeb inhalations, antibiotics in the form of ceftriaxone and Vibramycin, Mucinex. Review of Systems REVIEW OF SYSTEMS: CONSTITUTIONAL: Denies any recent significant weight loss or weight gain. EYES: Denies change in vision. EARS, NOSE, MOUTH, THROAT: Denies headaches, denies sore throat. CARDIOVASCULAR: Denies chest pain, palpitations or syncopal episodes. RESPIRATORY: Positive for shortness of breath, cough, congestion no hemoptysis. GASTROINTESTINAL: Denies change in appetite, denies abdominal pain GENITOURINARY: Denies hematuria, denies infections. MUSKULOSKELETAL: Denies pain, denies swelling. INTEGUMENTARY: Denies rash, denies eczema. NEUROLOGICAL: Denies recent memory loss, no recent seizure activity. PSYCHIATRIC: Denies anxiety, denies depression. HEMATOLOGIC/LYMPHATIC: Denies anemia, denies enlarged lymph nodes. 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 Morbid obesity, mass on right kidney, cellulitis BLE, fall at home History of Any Multi-Drug Resistant Organisms: None Reported Past Surgical History: Breast Surgery, Cholecystectomy, Joint Replacement, Orthopedic Surgery Additional Past Surgical History / Comment(s): thelma knee replac; L shoulder replac.; carpel tunnel vaginal duct cyst; benign breast surg; cataracts; reti nal repair left eye Past Anesthesia/Blood Transfusion Reactions: No Reported Reaction Past Psychological History: No Psychological Hx Reported Smoking Status: Never smoker Past Alcohol Use History: None Reported Past Drug Use History: None Reported - Past Family History Father Family Medical History: Deep Vein Thrombosis (DVT) Medications and Allergies Home Medications Medication Instructions Recorded Confirmed Type Metoprolol Tartrate [Lopressor] 50 mg PO BID 08/25/17 08/19/19 History Simvastatin [Zocor] 10 mg PO HS 08/25/17 08/19/19 History glipiZIDE [Glucotrol] 5 mg PO HS 08/25/17 08/19/19 History metFORMIN HCL [Glucophage] 1,000 mg PO AC-BID 08/25/17 08/19/19 History Furosemide [Lasix] 40 mg PO DAILY 08/19/19 08/19/19 History Omeprazole [PriLOSEC] 20 mg PO DAILY 08/19/19 08/19/19 History Potassium Chloride [Klor-Con 20] 20 meq PO DAILY 08/19/19 08/19/19 History Warfarin Sodium 2.5 mg PO SUTUTHSA 08/19/19 08/19/19 History Warfarin [Coumadin] 1.25 mg PO MOWEFR 08/19/19 08/19/19 History amLODIPine [Norvasc] 2.5 mg PO DAILY 08/19/19 08/19/19 History Allergies Allergy/AdvReac Type Severity Reaction Status Date / Time azithromycin Allergy Dyspnea & Verified 08/19/19 16:57 nausea ciprofloxacin [From Cipro] Allergy Dyspnea & Verified 08/19/19 16:57 nausea Penicillins Allergy Rash/Hives Verified 08/19/19 16:57 Physical Exam Vitals: Vital Signs Temp Pulse Pulse Resp BP Pulse Ox 08/21/19 10:02 68 08/21/19 09:51 68 08/21/19 08:00 18 08/21/19 03:59 98.1 F 60 18 106/68 95 08/20/19 21:12 72 08/20/19 21:02 72 97 08/20/19 20:47 98.1 F 69 18 120/75 100 08/20/19 17:47 94 L 08/20/19 17:02 64 08/20/19 16:50 64 08/20/19 15:53 62 18 08/20/19 14:18 98.3 F 62 18 103/66 100 Intake and Output 08/20/19 08/21/19 08/21/19 22:59 06:59 14:59 Other: Voiding Method Bedside Commode Bedside Commode Bedside Commode # Voids 1 2 GENERAL EXAM: Alert, pleasant morbidly obese 84-year-old female patient, comfortable in no apparent distress. On 2 L nasal cannula. HEAD: Normocephalic. EYES: Normal reaction of pupils, equal size. NOSE: Clear with pink turbinates. THROAT: No erythema or exudates. NECK: No masses, no JVD. CHEST: No chest wall deformity. LUNGS: Equal air entry with faint crackles in the left base. CVS: S1 and S2 normal with no audible murmur, regular rhythm. ABDOMEN: No hepatosplenomegaly, normal bowel sounds, no guarding or rigidity. SPINE: No scoliosis or deformity SKIN: Changes of chronic venous stasis of lower extremities. CENTRAL NERVOUS SYSTEM: No focal deficits, tone is normal in all 4 extremities. EXTREMITIES: There is 2+ chronic peripheral edema. No clubbing, no cyanosis. Peripheral pulses are intact. Results - Laboratory Findings CBC and BMP: 08/21/19 07:21 08/21/19 07:21 PT/INR, D-dimer PT 19.2 sec (9.0-12.0) H 08/21/19 07:21 INR 2.0 (<1.2) H 08/21/19 07:21 Abnormal lab findings: Abnormal Labs 08/19/19 08/19/19 08/19/19 16:01 16:01 17:34 WBC 13.5 H RBC Hgb 10.9 L Hct MCV 78.4 L MCH MCHC RDW 16.3 H Neutrophils # 12.1 H Lymphocytes # 0.7 L PT 27.9 H INR 2.9 H APTT 38.5 H BUN Glucose 170 H POC Glucose (mg/dL) Iron Iron Saturation Urine Protein Urine Glucose (UA) Urine Blood Urine RBC Amorphous Sediment Hyaline Casts Urine Mucus 08/19/19 08/19/19 08/20/19 17:58 21:56 01:10 WBC RBC Hgb Hct MCV MCH MCHC RDW Neutrophils # Lymphocytes # PT INR APTT BUN Glucose POC Glucose (mg/dL) 149 H Iron Iron Saturation Urine Protein 2+ H 1+ H Urine Glucose (UA) 3+ H Trace H Urine Blood Small H Moderate H Urine RBC 10 H Amorphous Sediment Occasional H Hyaline Casts 4 H Urine Mucus Rare H Few H 08/20/19 08/20/19 08/20/19 07:10 07:10 07:13 WBC RBC Hgb Hct MCV MCH MCHC RDW Neutrophils # Lymphocytes # PT 25.6 H INR 2.6 H APTT BUN Glucose POC Glucose (mg/dL) 108 H Iron 18 L Iron Saturation 5.36 L Urine Protein Urine Glucose (UA) Urine Blood Urine RBC Amorphous Sediment Hyaline Casts Urine Mucus 08/20/19 08/20/19 08/20/19 11:46 17:08 20:47 WBC RBC Hgb Hct MCV MCH MCHC RDW Neutrophils # Lymphocytes # PT INR APTT BUN Glucose POC Glucose (mg/dL) 129 H 152 H 146 H Iron Iron Saturation Urine Protein Urine Glucose (UA) Urine Blood Urine RBC Amorphous Sediment Hyaline Casts Urine Mucus 08/21/19 08/21/19 08/21/19 02:31 07:04 07:21 WBC RBC Hgb Hct MCV MCH MCHC RDW Neutrophils # Lymphocytes # PT 19.2 H INR 2.0 H APTT BUN Glucose POC Glucose (mg/dL) 124 H 121 H Iron Iron Saturation Urine Protein Urine Glucose (UA) Urine Blood Urine RBC Amorphous Sediment Hyaline Casts Urine Mucus 08/21/19 08/21/19 08/21/19 07:21 07:21 12:14 WBC RBC 3.78 L Hgb 9.2 L D Hct 29.8 L MCV 78.9 L MCH 24.4 L MCHC 30.9 L RDW 17.0 H Neutrophils # Lymphocytes # PT INR APTT BUN 18 H Glucose 120 H POC Glucose (mg/dL) 141 H Iron Iron Saturation Urine Protein Urine Glucose (UA) Urine Blood Urine RBC Amorphous Sediment Hyaline Casts Urine Mucus - Diagnostic Findings Chest x-ray: image reviewed CT scan - chest: image reviewed Assessment and Plan Assessment: Impression: #1 Acute left lower lobe pneumonia. No evidence of mass. #2 Lifelong nonsmoker. #3 Morbid obesity. #4 History of PE/DVT, on warfarin. INR 2.0. #5 Diabetes mellitus. #6 Hypertension. #7 Hyperlipidemia. #8 GERD. #9 Changes of chronic venous stasis of lower extremities and history of cellulitis. #10 Poor overall functional performance based on the above-mentioned multiple comorbidities. Plan: The patient was seen and evaluated by Dr. Fernando. Chest x-ray, CAT scans and labs all reviewed. We will continue her treatment for left lower lobe pneumonia. No evidence of mass. We will continue bronchodilators, Mucinex, antibiotics. We will increase her activity as tolerated. We'll continue to follow and make further recommendations based on her clinical status. I, the cosigning physician, performed a history & physical examination of the patient. Lungs sounds with crackles in left posterior base. Maintaining good O2 saturations in the 90s on 2 L/m per nasal cannula. I discussed the assessment and plan of care with my nurse practitioner, Corinna Wheeler. I attest to the above consultation as dictated by her. Time with Patient: Greater than 30
[2019-08-21 17:25] LABS: Glucose,Whole Blood 133 mg/dL (75-99)
[2019-08-21] MEDS ORDERED: WARFARIN 2.5 MG TAB PO ONE (18:00)
[2019-08-21] MEDS: ATORVASTATIN 10 MG TAB PO SCH (21:43)
[2019-08-22] MEDS: ACETAMINOPHEN TAB 325 MG TAB PO PRN ×2 (00:38→09:59)
[2019-08-22 07:16] LABS: Glucose,Whole Blood 136 mg/dL (75-99)
[2019-08-22] MEDS: INSULIN ASPART (NovoLOG) 100 UNIT/ML VIAL SQ SCH ×2 (07:40→12:39)
[2019-08-22] MEDS: PANTOPRAZOLE 40 MG TABLET PO SCH (07:42)
[2019-08-22] MEDS: guaiFENesin 600 MG TABLET.ER PO SCH (07:42)
[2019-08-22] MEDS: METOPROLOL TARTRATE 50 MG TAB PO SCH (07:42)
[2019-08-22] MEDS: amLODIPine 2.5 MG TAB PO SCH (07:42)
[2019-08-22] MEDS: DOXYCYCLINE 100 MG CAP PO SCH (07:43)
[2019-08-22 08:08] VITALS: BP 148/72; PULSE 58; RESP 16; TEMP 97.9
[2019-08-22 08:33] LABS: INR 1.6 (<1.2); Prothrombin Time 16.1 sec (9.0-12.0)
--- NOTE | 2019-08-22 09:38 | P.DS ---
Providers Date of admission: 08/21/19 10:24 Expected date of discharge: 08/22/19 Attending physician: Amaya eGorges MD Consults: 08/20/19 13:40 Consult Physician Routine Consulting Provider: William Fernando Consult Reason/Comments: PNA, possible mass Do you want consulting provider notified?: Yes Primary care physician: Lexis Mcdowell MD Hospital Course: 84-year-old female with PMH of diabetes mellitus, history of DVT/PE, hypertension, hyperlipidemia presented to the ED with a one-day history of cough productive of creamy sputum, associated with multiple episodes of vomiting. In the ED, influenza was negative. Chest x-ray showed left lower lobe pneumonia. Patient was started on Rocephin and doxycycline and was admitted for further workup and management. CT chest was ordered to rule out pulmonary mass which showed trace left pleural effusion with patchy nodular groundglass densities, low density nodularity in the right adrenal gland and hypodense lesion, likely cyst in the left kidney. Pulmonology was consulted and recommended continuation of treatment. Mucinex was added for cough. She was given DuoNeb as needed for shortness of breath and wheezing. Echocardiogram was ordered which showed EF 55-60% with diastolic dysfunction. Otherwise, her home medications were resumed for history of DVT/PE, hypertension and hyperlipidemia. She was started on insulin sliding scale for her diabetes mellitus. Physical therapy was consulted and recommended subacute rehab. business services sales agent was consulted and patient was accepted to [facility]. Patient was seen and examined. No acute events overnight. General: [non toxic], [no distress], [appears at stated age] Derm: [warm], [dry] Head: [atraumatic], [normocephalic], [symmetric] Eyes: [EOMI], [no lid lag], [anicteric sclera] Mouth: [no lip lesion], [mucus membranes moist] Cardiovascular: [S1S2 reg], [systolic murmur], [positive DP pulse bilateral], Lungs: [Decreased breath sounds bilateral, left lower], [no rhonchi, no rales] , [no accessory muscle use] Abdominal: [soft], [ nontender to palpation], [no guarding], [no appreciable organomegaly] Ext: [no gross muscle atrophy], [3+ edema bilaterally with chronic venous stasis changes], [no contractures] Neuro: [no focal neuro deficits] Psych: [Alert], [oriented], [appropriate affect] Assessment and Plan Community-acquired pneumonia with possible underlying mass Heart failure preserved ejection fraction 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 CT chest shows trace left pleural effusion with patchy nodular groundglass densities, low density nodularity in the right adrenal gland and hypodense lesion likely cyst in the left kidney. Plans: Continue Rocephin and doxycycline. Mucinex scheduled for cough. DuoNeb as needed for shortness of breath and wheezing. Tylenol as needed for fever. Follow-up echocardiogram. Follow sputum culture, blood cultures. Follow pulmonology consultation. Echocardiogram shows EF 55-60% with diastolic dysfunction. Plans: Adequate blood pressure control. As seen on CT chest. Plans: Follow-up with PCP regarding kidney and adrenal mass. No immediate concerns. Lifelong anticoagulation. Plans: Continue Coumadin maintain INR 2-3. Onfrf-sz-[id number] glucose 136. Plans: Insulin sliding scale. Regular Accu-Cheks. Hypoglycemic precautions. Diabetic diet. BP 148/72. Pulse: Continue amlodipine. Monitor vitals, adjust medications as necessary. Plans: Lipitor bedtime. [Patient admitted for community-acquired pneumonia. Follow 6 minute walk test. Possible DC to [facility] today or tomorrow.] Assessment: Home O2 tests Pertinent Studies: Chest x-ray, chest CT, echocardiogram Patient Condition at Discharge: Stable Plan - Discharge Summary Discharge Rx Participant: No New Discharge Prescriptions: New RX: Ipratropium-Albuterol Nebulize [Duoneb 0.5 mg-3 mg/3 ml Soln] 3 ml INHALATION RT-QID PRN ampul.neb PRN Reason: Shortness Of Breath Or Wheezing RX: guaiFENesin [Mucinex] 600 mg PO Q12HR PRN 4 Days tablet.er PRN Reason: Cough RX: Acetaminophen Tab [Tylenol] 650 mg PO Q6HR PRN tab PRN Reason: Fever And/ Or Pain RX: Doxycycline [Vibramycin] 100 mg PO Q12HR #8 cap Continue RX: Simvastatin [Zocor] 10 mg PO HS RX: metFORMIN HCL [Glucophage] 1,000 mg PO AC-BID RX: Metoprolol Tartrate [Lopressor] 50 mg PO BID RX: glipiZIDE [Glucotrol] 5 mg PO HS RX: Warfarin [Coumadin] 1.25 mg PO MOWE RX: Warfarin Sodium 2.5 mg PO SUTUTHSA RX: Potassium Chloride [Klor-Con 20] 20 meq PO DAILY RX: Furosemide [Lasix] 40 mg PO DAILY RX: amLODIPine [Norvasc] 2.5 mg PO DAILY RX: Omeprazole [PriLOSEC] 20 mg PO DAILY Discharge Medication List RX: Metoprolol Tartrate [Lopressor] 50 mg PO BID 08/25/17 [History] RX: Simvastatin [Zocor] 10 mg PO HS 08/25/17 [History] RX: glipiZIDE [Glucotrol] 5 mg PO HS 08/25/17 [History] RX: metFORMIN HCL [Glucophage] 1,000 mg PO AC-BID 08/25/17 [History] RX: Furosemide [Lasix] 40 mg PO DAILY 08/19/19 [History] RX: Omeprazole [PriLOSEC] 20 mg PO DAILY 08/19/19 [History] RX: Potassium Chloride [Klor-Con 20] 20 meq PO DAILY 08/19/19 [History] RX: Warfarin Sodium 2.5 mg PO SUTUTHSA 08/19/19 [History] RX: Warfarin [Coumadin] 1.25 mg PO MOWEFR 08/19/19 [History] RX: amLODIPine [Norvasc] 2.5 mg PO DAILY 08/19/19 [History] RX: Acetaminophen Tab [Tylenol] 650 mg PO Q6HR PRN tab 08/22/19 [Rx] RX: Doxycycline [Vibramycin] 100 mg PO Q12HR #8 cap 08/22/19 [Rx] RX: Ipratropium-Albuterol Nebulize [Duoneb 0.5 mg-3 mg/3 ml Soln] 3 ml INHALATION RT-QID PRN ampul.neb 08/22/19 [Rx] RX: guaiFENesin [Mucinex] 600 mg PO Q12HR PRN 4 Days tablet.er 08/22/19 [Rx] Follow up Appointment(s)/Referral(s): Lexis Mcdowell MD [Primary Care Provider] - 1-2 days William Fernando MD [STAFF PHYSICIAN] - 1 Week Activity/Diet/Wound Care/Special Instructions: Diet: Low-salt, diabetic Follow-up PCP within 1-3 days of discharge. Follow-up with pulmonology within 1 week of discharge. Take all medications as advised. Discharge Disposition: TRANSFER TO SNF/ECF
[2019-08-22 11:31] LABS: Glucose,Whole Blood 103 mg/dL (75-99)
--- NOTE | 2019-08-22 12:55 | P.PN ---
Subjective Progress Note Date: 08/22/19 Principal diagnosis: Acute left lower lobe pneumonia. This is a very pleasant 84-year-old female patient who follows with Dr. Mcdowell as her primary care physician. She ihas a history of diabetes mellitus, GERD, hypertension, hyperlipidemia, osteoarthritis, DVT/PE anticoagulated with warfarin, morbid obesity, chronic venous stasis changes of lower extremities. She is a lifelong nonsmoker. She is not been seen by a salesperson handbags in the past. She is on albuterol HFA in the outpatient setting for occasional shortness of breath. She presented here to the emergency room on 08/19/2019 with complaints of increasing shortness of breath, cough, chills, nausea and vomiting, epigastric abdominal pain. Acute abdominal series revealed a nonacute abdomen however there is airspace disease in the left lower lobe. Chest x-ray revealed a left lower lobe infiltrate with interstitial pattern. Some mild venous congestion. She is admitted for left lower lobe pneumonia. She is seen today in consultation. Awake and alert in no acute distress. Sitting up in a chair at the bedside. Maintaining O2 saturations in the mid 90s on 2 L/m per nasal cannula. She's afebrile. Hemodynamically stable. Blood and urine cultures pending. White count 4.9. Hemoglobin 9.2. INR 2.0. Creatinine 0.67. She's been initiated on DuoNeb inhalations, antibiotics in the form of ceftriaxone and Vibramycin, Mucinex. The patient is seen today 08/22/2019 in follow-up on the regular medical floor. She is currently sitting up at the bedside. Awake and alert in no acute distress. Her breathing is back to her baseline. No worsening shortness of breath, cough or congestion. No fever or chills. Sputum reveals no growth. Blood cultures reveal no growth. She has been treated with ceftriaxone and doxycycline. She is maintaining O2 saturations in the mid 90s on room air. She's been afebrile. Objective - Vital Signs Vital signs: Vital Signs Temp 97.9 F 08/22/19 07:00 Pulse 58 L 08/22/19 07:00 Resp 16 08/22/19 07:00 BP 148/72 08/22/19 07:00 Pulse Ox 97 08/22/19 09:58 Intake & Output 08/21/19 08/22/19 08/22/19 18:59 06:59 18:59 Intake Total 300 Balance 300 Intake: Oral 300 Other: Voiding Method Bedside Commode Bedside Commode # Voids 5 3 # Bowel Movements 0 - Exam GENERAL EXAM: Alert, pleasant morbidly obese 84-year-old female patient, comfortable in no apparent distress. On room air. HEAD: Normocephalic. EYES: Normal reaction of pupils, equal size. NOSE: Clear with pink turbinates. THROAT: No erythema or exudates. NECK: No masses, no JVD. CHEST: No chest wall deformity. LUNGS: Equal air entry with no wheeze, rhonchi or crackles.. CVS: S1 and S2 normal with no audible murmur, regular rhythm. ABDOMEN: No hepatosplenomegaly, normal bowel sounds, no guarding or rigidity. SPINE: No scoliosis or deformity SKIN: Changes of chronic venous stasis of lower extremities. CENTRAL NERVOUS SYSTEM: No focal deficits, tone is normal in all 4 extremities. EXTREMITIES: There is 2+ chronic peripheral edema. No clubbing, no cyanosis. Peripheral pulses are intact. - Labs CBC & Chem 7: 08/21/19 07:21 08/21/19 07:21 Labs: Abnormal Lab Results - Last 24 Hours (Table) 08/21/19 08/22/19 08/22/19 Range/Units 17:13 07:14 08:04 PT 16.1 H (9.0-12.0) sec INR 1.6 H (<1.2) POC Glucose (mg/dL) 133 H 136 H (75-99) mg/dL 08/22/19 Range/Units 11:28 PT (9.0-12.0) sec INR (<1.2) POC Glucose (mg/dL) 103 H (75-99) mg/dL Microbiology - Last 24 Hours (Table) 08/20/19 10:30 Gram Stain - Final Sputum Sputum Culture - Final 08/19/19 19:50 Blood Culture - Preliminary Blood No Growth after 48 hours Assessment and Plan Assessment: Impression: #1 Acute left lower lobe pneumonia. No evidence of mass. #2 Lifelong nonsmoker. #3 Morbid obesity. #4 History of PE/DVT, on warfarin. INR 2.0. #5 Diabetes mellitus. #6 Hypertension. #7 Hyperlipidemia. #8 GERD. #9 Changes of chronic venous stasis of lower extremities and history of cellulitis. #10 Poor overall functional performance based on the above-mentioned multiple comorbidities. Plan: The patient was seen and evaluated by Dr. Fernando. She is cleared for discharge from the pulmonary standpoint. Planning to go to subacute rehabilitation. Comp lete a course of antibiotics. Follow-up in our office in 1-2 weeks' time. I, the cosigning physician, performed a history & physical examination of the patient. Lungs sounds with crackles in left posterior base. Maintaining good O2 saturations in the 90s on 2 L/m per nasal cannula. I discussed the assessment and plan of care with my nurse practitioner, Corinna Wheeler. I attest to the above consultation as dictated by her.
[2019-08-22] MEDS ORDERED: WARFARIN 2.5 MG TAB PO ONE (18:00)
== END 2019-08-22 13:26 | DRG 194 ==
LOC: EC 15:23 → 4MS4W 18:23 → OBSVTOIN 08-21 10:24
PROVIDERS: ADMIT Internal Medicine; ATTEND Internal Medicine
DX: J18.1 Lobar pneumonia, unspecified organism (principal); Z68.43 Body mass index [BMI] 50.0-59.9, adult; I50.32 Chronic diastolic (congestive) heart failure; E66.01 Morbid (severe) obesity due to excess calories; N28.1 Cyst of kidney, acquired; E11.9 Type 2 diabetes mellitus without complications; E27.9 Disorder of adrenal gland, unspecified; D50.9 Iron deficiency anemia, unspecified; E78.5 Hyperlipidemia, unspecified; I10 Essential (primary) hypertension; I87.8 Other specified disorders of veins; K21.9 Gastro-esophageal reflux disease without esophagitis; M19.90 Unspecified osteoarthritis, unspecified site; Z79.01 Long term (current) use of anticoagulants; Z79.84 Long term (current) use of oral hypoglycemic drugs; Z79.899 Other long term (current) drug therapy; Z88.1 Allergy status to other antibiotic agents; Z88.0 Allergy status to penicillin; Z90.49 Acquired absence of other specified parts of digestive tract; Z86.711 Personal history of pulmonary embolism; Z86.718 Personal history of other venous thrombosis and embolism; Z87.01 Personal history of pneumonia (recurrent); Z96.653 Presence of artificial knee joint, bilateral; Z96.612 Presence of left artificial shoulder joint; Z98.42 Cataract extraction status, left eye; Z98.41 Cataract extraction status, right eye; Z96.1 Presence of intraocular lens; Z91.81 History of falling; Z82.49 Family history of ischemic heart disease and other diseases of the circulatory system
CPT/HCPCS: 36415; 71046; 71260; 74022; 80048; 80053; 81001; 82728; 83540; 83550; 83735; 84100; 84484; 85025; 85027; 85610; 85730; 87040; 87070; 87205; 87502; 93005; 93306; 94640; 94760; 96365; 96375; 99285

== ENCOUNTER → 2019-09-10 | Outpatient (CLI) | payer MEDICARE ==
[2019-09-10 17:11] LABS: INR 2.7 (<1.2); Prothrombin Time 25.7 sec (9.0-12.0)
== END | disposition home or self-care (01) ==
LOC: LABWHC1 16:23
PROVIDERS: ATTEND Family Medicine
DX: Z09 Encounter for follow-up examination after completed treatment for conditions other than malignant neoplasm (principal); Z86.711 Personal history of pulmonary embolism
CPT/HCPCS: 36415; 85610

== ENCOUNTER 2019-09-24 04:15 | Observation (INO) | payer MEDICARE ==
--- NOTE | 2019-09-24 05:26 | XR ---
EXAMINATION TYPE: XR tibia fibula LT DATE OF EXAM: 09/24/2019 COMPARISON: NONE HISTORY: Fall. Pain. TECHNIQUE: 3 views FINDINGS: There is left knee prosthesis. The tibia and fibula appear intact. I see no fracture. There is calcaneal spurring. IMPRESSION: No acute abnormality of the left tibia and fibula.
--- NOTE | 2019-09-24 05:27 | XR ---
EXAMINATION TYPE: XR ankle limited LT DATE OF EXAM: 09/24/2019 COMPARISON: NONE HISTORY: Fall. Pain. TECHNIQUE: 2 views FINDINGS: Ankle mortise is anatomic. I see no fracture nor dislocation. There is plantar and Achilles calcaneal spur formation. There is spurring at the talonavicular joint. IMPRESSION: No acute abnormality of the left ankle.
--- NOTE | 2019-09-24 05:29 | ED ---
Lower Extremity Injury HPI - General Chief Complaint: Extremity Injury, Lower Stated Complaint: Ankle Pain Time Seen by Provider: 09/24/19 04:45 Source: EMS Mode of arrival: EMS - History of Present Illness Initial Comments: 's patient is an 84-year-old woman who is complaining of pain to the left lower leg. Patient had a ground-level fall yesterday, and is not sure exactly how her leg was positioned when she fell. She indicates that there is pain from below the knee on the left side to approximately the ankle. She is not able to localize it much better than that. She states that EMS did come out to help her up. She did then attempt to use the bathroom and had a number ground-level fall. This and when EMS was called and they brought her here to be evaluated for the left leg pain. The patient states that if she is sitting and resting with no weight on her leg that the pain is almost entirely gone. When she does attempt to stand and ambulate she has such severe pain she cannot support her weight. When questioned if the patient has an orthopedic surgeon, she states that she usually sees Dr. Augustin, and he has done both of her knee replacements and her left shoulder injury. The patient denies other injury in the fall. No head or neck injury. She is not having chest, back, or abdominal pain. There was no loss of consciousness. She denies weakness or numbness. MD Complaint: leg injury, fall Onset/Timin -: days(s) Injury: Leg: Left Type of Injury: unknown Place: home Improves With: rest Worsens With: weight bearing Context: fall - Related Data Home Medications Medication Instructions Recorded Confirmed Metoprolol Tartrate [Lopressor] 50 mg PO BID 08/25/17 08/19/19 Simvastatin [Zocor] 10 mg PO HS 08/25/17 08/19/19 glipiZIDE [Glucotrol] 5 mg PO HS 08/25/17 08/19/19 metFORMIN HCL [Glucophage] 1,000 mg PO AC-BID 08/25/17 08/19/19 Furosemide [Lasix] 40 mg PO DAILY 08/19/19 08/19/19 Omeprazole [PriLOSEC] 20 mg PO DAILY 08/19/19 08/19/19 Potassium Chloride [Klor-Con 20] 20 meq PO DAILY 08/19/19 08/19/19 Warfarin Sodium 2.5 mg PO SUTUTHSA 08/19/19 08/19/19 Warfarin [Coumadin] 1.25 mg PO MOWEFR 08/19/19 08/19/19 amLODIPine [Norvasc] 2.5 mg PO DAILY 08/19/19 08/19/19 Previous Rx's Medication Instructions Recorded Acetaminophen Tab [Tylenol] 650 mg PO Q6HR PRN tab 08/22/19 Doxycycline [Vibramycin] 100 mg PO Q12HR #8 cap 08/22/19 Ipratropium-Albuterol Nebulize 3 ml INHALATION RT-QID PRN 08/22/19 [Duoneb 0.5 mg-3 mg/3 ml Soln] ampul.neb guaiFENesin [Mucinex] 600 mg PO Q12HR PRN 4 Days 08/22/19 tablet.er Allergies Allergy/AdvReac Type Severity Reaction Status Date / Time azithromycin Allergy Dyspnea & Verified 09/24/19 04:38 nausea ciprofloxacin [From Cipro] Allergy Dyspnea & Verified 09/24/19 04:38 nausea Penicillins Allergy Rash/Hives Verified 09/24/19 04:38 Review of Systems ROS Statement: Those systems with pertinent positive or pertinent negative responses have been documented in the HPI. ROS Other: All systems not noted in ROS Statement are negative. Constitutional: Denies: fever, chills Respiratory: Denies: cough, dyspnea Cardiovascular: Denies: chest pain Gastrointestinal: Denies: abdominal pain, vomiting Musculoskeletal: Reports: as per HPI, other (Lower leg pain). Denies: back pain Neurological: Denies: headache, weakness, numbness Past Medical History Past Medical History: Diabetes Mellitus, Deep Vein Thrombosis (DVT), GERD/Reflux, Hyperlipidemia, Hypertension, Osteoarthritis (OA), Pneumonia, Pulmonary Embolus (PE), Renal Disease Additional Past Medical History / Comment(s): Hx of PE & DVT over 11 yrs ago. Morbid obesity, mass on right kidney, cellulitis BLE, fall at home History of Any Multi-Drug Resistant Organisms: None Reported Past Surgical History: Breast Surgery, Cholecystectomy, Joint Replacement, Orthopedic Surgery Additional Past Surgical History / Comment(s): thelma knee replac; L shoulder replac.; carpel tunnel vaginal duct cyst; benign breast surg; cataracts; retinal repair left eye Past Anesthesia/Blood Transfusion Reactions: No Reported Reaction Past Psychological History: No Psychological Hx Reported Smoking Status: Never smoker Past Alcohol Use History: None Reported Past Drug Use History: None Reported - Past Family History Father Family Medical History: Deep Vein Thrombosis (DVT) General Exam General appearance: alert, in no apparent distress Head exam: Present: atraumatic, normocephalic Eye exam: Present: normal appearance. Absent: scleral icterus, conjunctival injection Neck exam: Present: normal inspection Respiratory exam: Present: normal lung sounds bilaterally. Absent: respiratory distress, wheezes, rales, rhonchi, stridor Cardiovascular Exam: Present: regular rate, normal rhythm, normal heart sounds GI/Abdominal exam: Present: soft. Absent: tenderness, guarding, rebound Extremities exam: Present: normal inspection, full ROM, tenderness (Tenderness at the lateral aspect of the left leg just distal to the knee.), normal capillary refill, pedal edema (Chronic bilateral lower extremity edema), other (Chronic venous stasis changes bilaterally) Neurological exam: Present: alert. Absent: motor sensory deficit Skin exam: Present: warm, dry, intact. Absent: rash Course Vital Signs 09/24/19 04:24 Temperature 97.8 F Pulse Rate 63 Respiratory 17 Rate Blood Pressure 143/73 O2 Sat by Pulse 97 Oximetry Medical Decision Making - Medical Decision Making Patient has nondisplaced fracture of the left fibular head. We are unable to get the patient to bear weight or ambulate. Given the fall within the preceding 24 hours, case discussed with surgical subspecialty they will admits with probable handoff to medicine for suspected rehabilitation placement. Patient states that she was previously patient of Dr. Mcdowell currently does not have a physician. - Lab Data Lab Results 09/24/19 Range/Units 05:51 POC Glucose (mg/dL) 113 H (75-99) mg/dL POC Glu Butcher Fish ID Qiana Johnson Disposition Clinical Impression: Fibular upper end fracture Disposition: ADMITTED IP TO THIS HOSP Condition: Fair Referrals: Kinjal Liu MD [STAFF PHYSICIAN] - 1-2 days
[2019-09-24 05:52] LABS: Glucose,Whole Blood 113 mg/dL (75-99)
[2019-09-24] MEDS ORDERED: HYDROcodone/APAP 5-325MG 1 EACH TAB PO PRN (06:23)
[2019-09-24] MEDS ORDERED: ACETAMINOPHEN TAB 325 MG TAB PO PRN (06:23)
[2019-09-24] MEDS ORDERED: NALOXONE 0.4 MG/ML 1 ML VIAL IV PRN (06:23)
[2019-09-24] MEDS ORDERED: guaiFENesin 600 MG TABLET.ER PO PRN (06:26)
[2019-09-24] MEDS ORDERED: IPRATROPIUM-ALBUTEROL 3 ML NEB INHALATION PRN (06:26)
[2019-09-24] MEDS ORDERED: WARFARIN 2.5 MG TAB PO SCH (06:30)
[2019-09-24 08:03] LABS: INR 4.5 (<1.2); Prothrombin Time 43.3 sec (9.0-12.0)
--- NOTE | 2019-09-24 08:14 | P.HPOR ---
History of Present Illness H&P Date: 09/24/19 Chief Complaint: Left leg pain and multiple falls Patient's a very pleasant 84-year-old female who is accompanied today by her daughter. She has significant past medical history including diabetes history of DVT and pulmonary embolism, history of hypertension and hyperlipidemia, history of obesity, and had been recently admitted to the hospital and then at [facility] in regards to her left lower lobe pneumonia. She has been back at home but has been having significant difficulty with her ambulation. She lives with her who has medical issues as well area and she has limited ambulation and uses a walker but has been having significant difficulty with her daily activities on her own. She said that she fell on when she was just trying to move quickly and lost her balance, and then she fell again yesterday when she is trying to kick off her shoes. She denies any loss of consciousness. She denies any chest pain or shortness of breath. She says that her left leg has some increased pain. She was evaluated in the emergency room and because of the falls and the possibility of fibular head fracture she was admitted to orthopedic surgery. She has multiple medical issues and is unable to get around on her own and is unable to stand and long at bedside and was also admitted in terms of her inability to mobilize and ambulate. She denies any recent fevers chills. She denies any chest pain shortness breath. She denies any loss conscious. Review of Systems As per HPI. She says that her whole left leg his diffusely tender below her knee. She has difficulty moving her left leg which has increased over the past few days since when she fell. She denies other pain in her right leg. She has history of bilateral total knee replacements done [address] Augustin. She says she has spinal stenosis and is scheduled for surgery at [facility] for her lumbar spine for spinal stenosis. 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 Morbid obesity, mass on right kidney, cellulitis BLE, fall at home, history of bilateral total knee replacements approximately [address] Augustin. History of spinal stenosis and is scheduled to have surgery at another facility in the near future History of Any Multi-Drug Resistant Organisms: None Reported Past Surgical History: Breast Surgery, Cholecystectomy, Joint Replacement, Orthopedic Surgery Additional Past Surgical History / Comment(s): thelma knee replac; L shoulder replac.; carpel tunnel vaginal duct cyst; benign breast surg; cataracts; retinal repair left eye Past Anesthesia/Blood Transfusion Reactions: No Reported Reaction Past Psychological History: No Psychological Hx Reported Smoking Status: Never smoker Past Alcohol Use History: None Reported Past Drug Use History: None Reported - Past Family History Father Family Medical History: Deep Vein Thrombosis (DVT) Medications and Allergies Home Medications Medication Instructions Recorded Confirmed Type Metoprolol Tartrate [Lopressor] 50 mg PO BID 08/25/17 09/24/19 History Simvastatin [Zocor] 10 mg PO HS 08/25/17 09/24/19 History glipiZIDE [Glucotrol] 5 mg PO HS 08/25/17 09/24/19 History metFORMIN HCL [Glucophage] 1,000 mg PO AC-BID 08/25/17 09/24/19 History Furosemide [Lasix] 40 mg PO DAILY 08/19/19 09/24/19 History Omeprazole [PriLOSEC] 20 mg PO DAILY 08/19/19 09/24/19 History Potassium Chloride [Klor-Con 20] 20 meq PO DAILY 08/19/19 09/24/19 History Warfarin Sodium 2.5 mg PO SUTUTHSA 08/19/19 09/24/19 History Warfarin [Coumadin] 1.25 mg PO MOWEFR 08/19/19 09/24/19 History amLODIPine [Norvasc] 2.5 mg PO DAILY 08/19/19 09/24/19 History Acetaminophen Tab [Tylenol] 650 mg PO Q6HR PRN tab 08/22/19 09/24/19 Rx Allergies Allergy/AdvReac Type Severity Reaction Status Date / Time azithromycin Allergy Dyspnea & Verified 09/24/19 07:22 nausea ciprofloxacin [From Cipro] Allergy Dyspnea & Verified 09/24/19 07:22 nausea Penicillins Allergy Rash/Hives Verified 09/24/19 07:22 Physical Examination Osteopathic Statement: *. No significant issues noted on an osteopathic structural exam other than those noted in the History and Physical/Consult. - Knee bilateral Appearance: other (The patient is morbidly obese. She has stasis skin changes at her bilateral lower extremities from her mid calf down. At her left lower extremity she has diffuse tenderness over her calf and knee. She has tenderness medially and laterally at her knee and anteriorly. She has tenderness medial and laterally at her ankle. She has sustained dorsal flexion plantarflexion and EHL. She has difficulty lifting her leg up off the bed on the left side but is able to do so. She is able to bend her knee. Her thighs soft her calf is soft there is no erythema. The right lower extremity she has good active and passive range of motion without any tenderness with ocean. She does have some diffuse tenderness around her knee without point tenderness or crepitus.) - C Spine: dermatomal strength & reflexes bilateral Shoulder strength: flexion: 5/5 (She moves her head well with no pain at her neck. Her upper extremities have good active and passive range of motion. Her abdomen soft nontender she is obese. Her back is nontender to palpation.) Results - Labs Labs: Abnormal Lab Results - Last 24 Hours (Table) 09/24/19 Range/Units 05:51 POC Glucose (mg/dL) 113 H (75-99) mg/dL - Diagnostic results Ankle/Foot x-ray: report reviewed, image reviewed (At her left knee she has a total knee replacement intact. It appears to be stable. There is some cortical irregularity at the proximal fibular head. She is osteopenic. There is no obvious fracture and the report is read as no acute fracture of the tibia or fibula.) Assessment and Plan Assessment: Inability to ambulate safely Multiple falls at home Left lower extremity pain Morbid obesity Deconditioning Possible cortical irregularity of the proximal fibula which I was told by the ER is a fracture but it is read per x-ray as negative for fracture History of bilateral total knee replacements which are stable History of DVT and multiple medical issues History of pulmonary embolism diabetes hypertension and hyperlipidemia Recent history of pneumonia Plan: Inability to ambulate safely Multiple falls at home Left lower extremity pain Morbid obesity Deconditioning Possible cortical irregularity of the proximal fibula which I was told by the ER is a fracture but it is read per x-ray as negative for fracture History of bilateral total knee replacements which are stable History of DVT and multiple medical issues History of pulmonary embolism diabetes hypertension and hyperlipidemia Recent history of pneumonia It is difficult to determine fully if there is a fracture at the proximal fibular head. Patient does have pain at her left lower extremity but in terms of her bony stability it is okay for her to weight-bear as tolerated. We do not have any plans for surgical intervention for her left lower extremity. Her body habitus is not amenable for a well fitting brace and I do not think that would give her much support. A lower extremity boot without give her support for her knee and I don't think that is necessary at this point. For her left lower extremity is okay for her weight-bear as tolerated and increase her mobility on her left lower extremity as tolerated as long as she does not have some other issues such as DVT. We need to obtain an ultrasound of her lower extremities to rule out new DVT before we can start to mobilize her. If that is negative we can start to increase her activity mobilization at her left lower extremity. We do not have any plans for surgical intervention from an orthopedic standpoint. From a bony standpoint she is stable to increase her ambulation and to be managed on an outpatient basis. Nonetheless the patient is unable to mobilize at this point I think says she is best served with being transferred to medicine as her primary service rather than orthopedic surgery. She will likely need placement although she is somewhat reluctant for this as she would like to be at home. Is difficult to feel that she would be safe at home and we will consult case management to evaluate her situation and [place] if she would be best suited with detention after hospitalization. I discussed this with her and her daughter at length at bedside. We will obtain an ultrasound of her lower extremity is and if that is negative we'll start to increase her mobility. She should continue her medical management as per medicine service and will likely be be transferred to medicine service for her hospitalization. Time with Patient: Greater than 30
[2019-09-24] MEDS ORDERED: HEPARIN SODIUM,PORCINE 5,000 UNIT/ML 1 ML VIAL SQ SCH (09:00)
[2019-09-24] MEDS ORDERED: DOXYCYCLINE 100 MG CAP PO SCH (09:00)
[2019-09-24] MEDS: METOPROLOL TARTRATE 50 MG TAB PO SCH ×2 (09:34→21:42)
[2019-09-24] MEDS: POTASSIUM CHLORIDE ER 20 MEQ TAB.ER PO SCH (09:35)
[2019-09-24] MEDS: metFORMIN 500 MG TAB PO SCH ×2 (09:35→17:41)
[2019-09-24] MEDS: PANTOPRAZOLE 40 MG TABLET PO SCH (09:35)
[2019-09-24] MEDS: amLODIPine 2.5 MG TAB PO SCH (09:35)
[2019-09-24] MEDS: FUROSEMIDE 40 MG TAB PO SCH (09:36)
[2019-09-24 10:27] VITALS: BMI 50.1
--- NOTE | 2019-09-24 10:34 | US ---
EXAMINATION TYPE: US venous doppler duplex LE LT DATE OF EXAM: 09/24/2019 9:26 AM COMPARISON: NONE CLINICAL HISTORY: Left lower extremity pain diffusely. Pain SIDE PERFORMED: Left TECHNIQUE: The lower extremity deep venous system is examined utilizing real time linear array sonog silver with graded compression, doppler sonography and color-flow sonography. VESSELS IMAGED: External Iliac Vein (EIV) Common Femoral Vein Deep Femoral Vein Greater Saphenous Vein * Femoral Vein Popliteal Vein Small Saphenous Vein * Proximal Calf Veins (* superficial vessels) Left Leg: Negative for DVT IMPRESSION: 1. No diagnostic evidence of DVT
[2019-09-24 12:10] LABS: Glucose,Whole Blood 105 mg/dL (75-99)
[2019-09-24 14:40] LABS: Anisocytosis Slight; Basophils # (A) 0.1 k/uL (0-0.2); Basophils % (A) 1 %; Eosinophils # (A) 0.1 k/uL (0-0.7); Eosinophils % (A) 2 %; HCT 33.8 % (34.0-46.0); HGB 10.3 gm/dL (11.4-16.0); Hypochromasia Marked; Lymphocytes # (A) 1.3 k/uL (1.0-4.8); Lymphocytes % (A) 25 %; MCH 25.5 pg (25.0-35.0); MCHC 30.6 g/dL (31.0-37.0); MCV 83.3 fL (80.0-100.0); Mean Platelet Volume 7.9; Monocytes # (A) 0.4 k/uL (0-1.0); Monocytes % (A) 8 %; Neutrophils # (A) 3.3 k/uL (1.3-7.7); Neutrophils % (A) 62 %; Platelet Count 261 k/uL (150-450); RBC 4.06 m/uL (3.80-5.40); RDW 16.6 % (11.5-15.5); WBC 5.4 k/uL (3.8-10.6)
[2019-09-24 14:44] LABS: ALT 18 U/L (9-52); AST 16 U/L (14-36); African American GFR (CKD) >90 (>60 ml/min/1.73 sqM); Albumin 3.2 g/dL (3.5-5.0); Alkaline Phosphatase 62 U/L (38-126); Anion Gap 6 mmol/L; Blood Urea Nitrogen 15 mg/dL (7-17); Calcium 8.9 mg/dL (8.4-10.2); Carbon Dioxide 27 mmol/L (22-30); Chloride 106 mmol/L (98-107); Glucose 135 mg/dL (74-99); Non-African American GFR(CKD) 87 (>60 ml/min/1.73 sqM); Potassium 3.6 mmol/L (3.5-5.1); Sodium 139 mmol/L (137-145); Total Bilirubin 0.5 mg/dL (0.2-1.3); Total Protein 6.3 g/dL (6.3-8.2)
--- NOTE | 2019-09-24 15:00 | CT ---
EXAMINATION TYPE: CT lower leg LT wo con DATE OF EXAM: 09/24/2019 COMPARISON: Radiograph earlier today. HISTORY: 84-year-old female with fall , left lower leg pain swelling TECHNIQUE: Contiguous axial scanning of the left tibia/fibula without IV contrast. Coronal and sagitt al reconstructions performed. CT DLP: 582.4 mGycm Automated exposure control for dose reduction was used. FINDINGS: Extensive streak and beam hardening artifact relating to the patient's left knee total arthroplasty l imits visualization at the level of the knee. Underlying mild to moderate knee joint effusion. Genera lized soft tissue swelling. Nondisplaced oblique fracture at the neck of the fibula. No additional acute fracture is seen. Suggestion of some scattered while cyst calcifications in the subcutaneous adipose layer. No edema seen along the deeper fascial planes. No soft tissue air. Ankle mortise is congruent. Small os trigonum. Some degenerative dorsal spurring at the talonavicular joint. IMPRESSION: 1. NONDISPLACED OBLIQUE FRACTURE AT THE LEVEL OF THE FIBULAR NECK. CORRELATE TO MECHANISM OF INJUR Y. 2. GENERALIZED SOFT TISSUE SWELLING AND SMALL TO MODERATE KNEE JOINT EFFUSION. 3. ASSESSMENT OF THE KNEE IS LIMITED DUE TO PROMINENT METAL HARDWARE ARTIFACT RELATED TO THE PATIENT' S KNEE REPLACEMENT.
--- NOTE | 2019-09-24 15:48 | HP ---
HISTORY AND PHYSICAL CHIEF COMPLAINT: Fall with pain in the left leg. HISTORY OF PRESENT ILLNESS: This lady presented to the emergency room after she fell at home and sustained injury to the lower leg. She is quite overweight. In the emergency room, she was read as having a fibular fracture, which was not confirmed by Radiology. She cannot return home. She cannot bear weight. REVIEW OF SYSTEMS: She denies any focal neurologic deficits, syncope, change in vision or hearing, chest pain, shortness of breath, abdominal pain, nausea, vomiting, hematemesis, melena, hematochezia, diarrhea, renal failure, hematuria, incontinence, frequency, etc. She is diabetic. Personal and social histories reveals she is ALLERGIC to ZITHROMAX, QUINOLONES AND PENICILLIN. MEDICATIONS AT HOME: Include amlodipine 2.5 mg once a day, furosemide 40 mg once a day, glipizide 5 mg q.h.s., metformin 1 g twice a day, metoprolol 50 mg twice a day, omeprazole 20 mg once a day, KCl 20 mEq once a day, simvastatin 10 mg q.h.s., Coumadin taking 1.25 mg 3 times a week and 2.5 mg 4 times a week. PAST SURGICAL HISTORY: Surgically she has had both of her knees replaced, a left shoulder, right ulnar nerve release, cataracts, carpal tunnel syndrome. She has had 3 pregnancies and 3 deliveries. She does not smoke or drink. LABORATORY DATA: Laboratory studies reveal the INR 4.5 and blood sugars were normal. PHYSICAL EXAMINATION: Temperature is 97.5, pulse 66, blood pressure 118/65. Respiratory rate is 16. In general she appeared to be overweight, the skin color is normal. Skin is warm, dry. Lymph nodes are not enlarged. Head, ears, eyes, nose, mouth, and throat were otherwise normal. Neck veins were unable to be evaluated. Chest is clear to auscultation. Cardiac exam demonstrated a grade 3/6 systolic murmur heard throughout the precordium. There are extra beats heard quite frequently. Abdomen is protuberant, soft, nontender. There are no masses or visceromegaly. Extremities demonstrated significant subcutaneous adiposity and dependent edema on both brawny and hydrostatic. She had significant tenderness over the left lateral lower leg. Peripheral circulation was adequate. Neurologically she is intact. IMPRESSION: She is admitted to the hospital with diagnoses of: 1. Fall with injury to the left lower leg. 2. Morbid obesity. 3. Type 2 noninsulin dependent diabetes mellitus. 4. Cardiac murmur. PLAN: 1. Bed rest. 2. IV fluids. 3. Consult with Orthopedics. 4. Consult with Physical therapy. 5. Discharge planning. 6. Hold anticoagulation. MARITZA / DELLA: [id number] /
[2019-09-24 17:19] LABS: Glucose,Whole Blood 110 mg/dL (75-99)
[2019-09-24] MEDS ORDERED: WARFARIN 0.5 MG TAB PO ONE (18:00)
[2019-09-24 20:32] LABS: Glucose,Whole Blood 131 mg/dL (75-99)
[2019-09-24 21:07] LABS: Hemoglobin A1C 6.1 % (4.0-6.0)
[2019-09-24] MEDS: glipiZIDE 5 MG TAB PO SCH (21:42)
[2019-09-24] MEDS: ATORVASTATIN 10 MG TAB PO SCH (21:42)
[2019-09-25] MEDS ORDERED: WARFARIN 2.5 MG TAB PO SCH (06:26)
[2019-09-25 07:01] LABS: Glucose,Whole Blood 94 mg/dL (75-99)
[2019-09-25 07:22] LABS: Anisocytosis Slight; Basophils % (A) 1 %; Eosinophils # (A) 0.1 k/uL (0-0.7); Eosinophils % (A) 2 %; HCT 33.5 % (34.0-46.0); HGB 10.5 gm/dL (11.4-16.0); Hypochromasia Marked; Lymphocytes # (A) 1.7 k/uL (1.0-4.8); Lymphocytes % (A) 34 %; MCH 25.2 pg (25.0-35.0); MCHC 31.2 g/dL (31.0-37.0); MCV 80.7 fL (80.0-100.0); Mean Platelet Volume 7.4; Monocytes # (A) 0.3 k/uL (0-1.0); Monocytes % (A) 6 %; Neutrophils # (A) 2.7 k/uL (1.3-7.7); Neutrophils % (A) 54 %; Platelet Count 251 k/uL (150-450); RBC 4.15 m/uL (3.80-5.40); RDW 16.6 % (11.5-15.5); WBC 4.9 k/uL (3.8-10.6)
[2019-09-25] MEDS: POTASSIUM CHLORIDE ER 20 MEQ TAB.ER PO SCH ×2 (07:37→07:43)
[2019-09-25] MEDS: FUROSEMIDE 40 MG TAB PO SCH ×2 (07:37→07:43)
[2019-09-25] MEDS: metFORMIN 500 MG TAB PO SCH ×2 (07:37→17:15)
[2019-09-25] MEDS: amLODIPine 2.5 MG TAB PO SCH (07:37)
[2019-09-25] MEDS: PANTOPRAZOLE 40 MG TABLET PO SCH (07:37)
[2019-09-25] MEDS: METOPROLOL TARTRATE 50 MG TAB PO SCH ×2 (07:37→21:03)
[2019-09-25] MEDS: ACETAMINOPHEN TAB 325 MG TAB PO PRN ×2 (07:41→21:03)
[2019-09-25 07:42] LABS: INR 3.3 (<1.2); Prothrombin Time 31.4 sec (9.0-12.0)
[2019-09-25 08:29] LABS: ALT 18 U/L (9-52); AST 14 U/L (14-36); African American GFR (CKD) >90 (>60 ml/min/1.73 sqM); Albumin 3.1 g/dL (3.5-5.0); Alkaline Phosphatase 60 U/L (38-126); Anion Gap 5 mmol/L; Blood Urea Nitrogen 17 mg/dL (7-17); Calcium 8.9 mg/dL (8.4-10.2); Carbon Dioxide 28 mmol/L (22-30); Chloride 105 mmol/L (98-107); Glucose 96 mg/dL (74-99); Non-African American GFR(CKD) 82 (>60 ml/min/1.73 sqM); Sodium 138 mmol/L (137-145); Total Bilirubin 0.6 mg/dL (0.2-1.3); Total Protein 6.2 g/dL (6.3-8.2)
--- NOTE | 2019-09-25 11:07 | P.CRDCN ---
History of Present Illness History of present illness: This is a pleasant 84-year-old female past medical history significant for hypertension, dyslipidemia, diabetes mellitus, minimal non-obstructive CAD per cath 2009, recurrent DVT on coumadin, spinal stenosis and morbid obesity. She recently re-established in the office with Dr. Delacruz for pre-operative evaluation. She is being evaluated for back surgery at [facility] in the future. She underwent a dobutamine stress echocardiogram 09/19/2019 in preparation for surgery. The stress test was negative for stress induced ischemia. She presented to the hospital secondary to suffering 2 mechanical falls causing leg pain and inability to bear weight. We have been asked to see her in consultation secondary to a murmur. She also recently underwent an echocardiogram that revealed preserved LV systolic function with EF 55-60% and aortic stenosis with a mean gradient of 36 mmHg, mild MR, severe TR and severe PH with RVSP 60 mmHg. She is seen and examined sitting up in the chair in no acute distress. She denies chest pain, shortness of breath, dizziness or palpitations. She also denies any episodes of syncope or LOC. On exam her heart rate is irregular. EKG was requested and revealed atrial fibrillation. This is a new diagnosis for her. However, she is already on coumadin secondary to chronic DVT. Rates are somewhat controlled. Laboratory data reviewed, WBC 4.9, hgb 10.5, plt 251, INR 3.3, sodium 138, potassium 4.0, creatinine 0.67. Current daily cardiac medications include lopressor 50 mg BID, smivastatin 10 mg daily, coumadin daily, amlodipine 2.5 mg daily, lasix 40 mg daily and potassium 20 MEQ daily. At the time of my exam: CONSTITUTIONAL: Denies fever. Denies chills. EYES: Denies blurred vision. Denies vision changes. Denies eye pain. EARS, NOSE, MOUTH & THROAT: Denies headache. Denies sore throat. Denies ear pain. CARDIOVASCULAR: Denies chest pain. Denies shortness of breath. Denies orthopnea. Denies PND. Denies palpitations. RESPIRATORY: Denies cough. GASTROINTESTINAL: Denies abdominal pain. Denies diarrhea. Denies constipation. Denies nausea. Denies vomiting. MUSCULOSKELETAL: Denies myalgias. INTEGUMENTARY: Denies pruitis. Denies rash. NEUROLOGIC: Denies numbness. Denies tingling. Complains of weakness. PSYCHIATRIC: Denies anxiety. Denies depression. ENDOCRINE: Denies fatigue. Denies weight change. Denies polydipsia. Denies polyurina. GENITOURINARY: Denies burning, hematuria or urgency with micturation. HEMATOLOGIC: Denies history of anemia. Denies bleeding. GENERAL: This is a 84-year-old female in no apparent distress at the time of my examination. HEENT: Head is atraumatic, normocephalic. Pupils are equal, round. Sclerae anicteric. Conjunctivae are clear. Mucous membranes of the mouth are moist. Neck is supple. There is no jugular venous distention. No carotid bruit is heard. LUNGS: Clear to auscultation no wheezes, rales or rhonchi. No chest wall tenderness is noted on palpation or with deep breathing. HEART: Irregular rate and rhythm with systolic ejection murmur at the base, no rubs or gallops. S1 and S2 heard. ABDOMEN: Soft, nontender. Bowel sounds are heard. No organomegaly noted. EXTREMITIES: Bilateral lower extremity non-pitting edema. VASCULAR: Radial and dorsalis pedis pulses palpated, no evidence of clubbing. NEUROLOGIC: Patient is awake, alert and oriented x3. ASSESSMENT Frequent falls, no syncope or LOC New onset paroxysmal atrial fibrillation with mostly controlled ventricular rates, already anti-coagulation with coumadin for chronic DVT History of chronic DVT's on coumadin Possible fibula fracture, being followed by ortho. No plans for surgery at this time. Valvular heart disease, aortic, mitral and tricuspid Aortic stenosis Pulmonary hypertension Hypertension Dyslipidemia Diabetes mellitus Minimal non-obstructive CAD per cath 2009 Spinal stenosis Morbid obesity, BMI 50 PLAN She is already maintained on long term care social worker anti-coagulation for chronic DVT, this will also protect her from thrombo-embolic phenomenon related to a-fib. Target INR 2-3. Continue beta shawn as previously ordered. Check magnesium and thyroid function. Thank you kindly for this consultation. Nurse Practitioner note has been reviewed, I agree with a documented findings and plan of care. Patient was seen and examined. 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 Morbid obesity, mass on right kidney, cellulitis BLE, fall at home, history of bilateral total knee replacements approximately [address] Augustin. History of spinal stenosis and is scheduled to have surgery at another facility in the near future History of Any Multi-Drug Resistant Organisms: None Reported Past Surgical History: Breast Surgery, Cholecystectomy, Joint Replacement, Orthopedic Surgery Additional Past Surgical History / Comment(s): thelma knee replac; L shoulder replac.; carpel tunnel vaginal duct cyst; benign breast surg; cataracts; retinal repair left eye Past Anesthesia/Blood Transfusion Reactions: No Reported Reaction Past Psychological History: No Psychological Hx Reported Additional Psychological History / Comment(s): pt states has anxiety and dep ression, but she is not taking any medication for that Smoking Status: Never smoker Past Alcohol Use History: None Reported Past Drug Use History: None Reported - Past Family History Father Family Medical History: Deep Vein Thrombosis (DVT) Son(s) Family Medical History: Deep Vein Thrombosis (DVT) Medications and Allergies Home Medications Medication Instructions Recorded Confirmed Type Metoprolol Tartrate [Lopressor] 50 mg PO BID 08/25/17 09/24/19 History Simvastatin [Zocor] 10 mg PO HS 08/25/17 09/24/19 History glipiZIDE [Glucotrol] 5 mg PO HS 08/25/17 09/24/19 History metFORMIN HCL [Glucophage] 1,000 mg PO AC-BID 08/25/17 09/24/19 History Furosemide [Lasix] 40 mg PO DAILY 08/19/19 09/24/19 History Omeprazole [PriLOSEC] 20 mg PO DAILY 08/19/19 09/24/19 History Potassium Chloride [Klor-Con 20] 20 meq PO DAILY 08/19/19 09/24/19 History Warfarin Sodium 2.5 mg PO SUTUTHSA 08/19/19 09/24/19 History Warfarin [Coumadin] 1.25 mg PO MOWEFR 08/19/19 09/24/19 History amLODIPine [Norvasc] 2.5 mg PO DAILY 08/19/19 09/24/19 History Acetaminophen Tab [Tylenol] 650 mg PO Q6HR PRN tab 08/22/19 09/24/19 Rx Allergies Allergy/AdvReac Type Severity Reaction Status Date / Time azithromycin Allergy Dyspnea & Verified 09/24/19 07:22 nausea ciprofloxacin [From Cipro] Allergy Dyspnea & Verified 09/24/19 07:22 nausea Penicillins Allergy Rash/Hives Verified 09/24/19 07:22 Physical Exam Vitals: Vital Signs Temp Pulse Resp BP BP Pulse Ox 09/25/19 07:10 98.1 F 60 15 127/69 96 09/25/19 04:12 18 09/25/19 01:27 98.1 F 60 18 132/75 96 09/25/19 00:00 18 09/24/19 20:09 18 09/24/19 19:48 98.2 F 67 18 125/69 96 09/24/19 14:10 98.3 F 69 17 123/65 96 Intake and Output 09/24/19 09/25/19 09/25/19 22:59 06:59 14:59 Intake Total 250 Balance 250 Intake: Oral 250 Other: Voiding Method Bedside Commode Bedside Commode # Voids 2 Results 09/25/19 06:50 09/25/19 06:50 Cardiac Enzymes 09/24/19 09/25/19 Range/Units 07:35 06:50 AST 16 14 (14-36) U/L Coagulation 09/25/19 Range/Units 06:50 PT 31.4 H (9.0-12.0) sec CBC 09/24/19 09/25/19 Range/Units 07:35 06:50 WBC 5.4 4.9 (3.8-10.6) k/uL RBC 4.06 4.15 (3.80-5.40) m/uL Hgb 10.3 L 10.5 L (11.4-16.0) gm/dL Hct 33.8 L 33.5 L (34.0-46.0) % Plt Count 261 251 (150-450) k/uL Comprehensive Metabolic Panel 09/24/19 09/25/19 Range/Units 07:35 06:50 Sodium 139 138 (137-145) mmol/L Potassium 3.6 4.0 (3.5-5.1) mmol/L Chloride 106 105 (98-107) mmol/L Carbon Dioxide 27 28 (22-30) mmol/L BUN 15 17 (7-17) mg/dL Creatinine 0.57 0.67 (0.52-1.04) mg/dL Glucose 135 H 96 (74-99) mg/dL Calcium 8.9 8.9 (8.4-10.2) mg/dL AST 16 14 (14-36) U/L ALT 18 18 (9-52) U/L Alkaline Phosphatase 62 60 (38-126) U/L Total Protein 6.3 6.2 L (6.3-8.2) g/dL Albumin 3.2 L 3.1 L (3.5-5.0) g/dL Current Medications Generic Name Dose Route Start Last Admin Trade Name Freq PRN Reason Stop Dose Admin Acetaminophen 650 mg 09/24/19 10:34 09/25/19 07:41 Tylenol Tab PO 650 mg Q6HR PRN Administration Fever and/ or Mild Pain Hydrocodone Bitart/Acetaminophen 1 each 09/24/19 06:23 09/24/19 21:42 Gooding 5-325 PO 1 each Q4HR PRN Administration Moderate Pain Albuterol/Ipratropium 3 ml 09/24/19 06:26 Duoneb 0.5 Mg-3 Mg/3 Ml Soln INHALATION RT-QID PRN Shortness Of Breath Or Wheezing Amlodipine Besylate 2.5 mg 09/24/19 09:00 09/25/19 07:37 Norvasc PO 2.5 mg DAILY ALINA Administration Atorvastatin Calcium 10 mg 09/24/19 21:00 09/24/19 21:42 Lipitor PO 10 mg HS ALINA Administration Furosemide 40 mg 09/24/19 09:00 09/25/19 07:43 Lasix PO Not Given DAILY ALINA Glipizide 5 mg 09/24/19 21:00 09/24/19 21:42 Glucotrol PO 5 mg HS ALINA Administration Guaifenesin 600 mg 09/24/19 06:26 Mucinex PO Q12HR PRN Cough Metformin HCl 1,000 mg 09/24/19 07:30 09/25/19 07:37 Glucophage PO 1,000 mg AC-BID ALINA Administration Metoprolol Tartrate 50 mg 09/24/19 09:00 09/25/19 07:37 Lopressor PO 50 mg BID ALINA Administration Naloxone HCl 0.2 mg 09/24/19 06:23 Narcan IV Q2M PRN Opioid Reversal Pantoprazole Sodium 40 mg 09/24/19 07:30 09/25/19 07:37 Protonix PO 40 mg AC-BRKFST ALINA Administration Potassium Chloride 20 meq 09/24/19 09:00 09/25/19 07:43 K-Dur 20 PO Not Given DAILY ALINA Intake and Output 09/24/19 09/25/19 09/25/19 22:59 06:59 14:59 Intake Total 250 Balance 250 Intake: Oral 250 Other: Voiding Method Bedside Commode Bedside Commode # Voids 2 09/25/19 06:50 09/25/19 06:50
[2019-09-25 11:46] LABS: Magnesium 1.5 mg/dL (1.6-2.3)
[2019-09-25 11:55] LABS: Glucose,Whole Blood 155 mg/dL (75-99)
[2019-09-25] MEDS ORDERED: Magnesium Replacement Protocol 1 EACH MISC MISCELLANE PRN (12:15)
[2019-09-25] MEDS: MAGNESIUM SULFATE-D5W PMX 1 GM in DEXTROSE/WATER 1 100ML.BAG IVPB SCH ×2 (12:36→14:11)
[2019-09-25 17:14] LABS: Glucose,Whole Blood 114 mg/dL (75-99)
[2019-09-25] MEDS ORDERED: WARFARIN 1.5 MG TAB PO ONE (18:00)
[2019-09-25 20:34] LABS: Glucose,Whole Blood 126 mg/dL (75-99)
[2019-09-25] MEDS: ATORVASTATIN 10 MG TAB PO SCH (21:03)
[2019-09-25] MEDS: glipiZIDE 5 MG TAB PO SCH (21:03)
[2019-09-26 07:22] LABS: Glucose,Whole Blood 96 mg/dL (75-99)
[2019-09-26] MEDS: metFORMIN 500 MG TAB PO SCH (07:56)
[2019-09-26] MEDS: PANTOPRAZOLE 40 MG TABLET PO SCH (07:57)
[2019-09-26] MEDS: METOPROLOL TARTRATE 50 MG TAB PO SCH (07:57)
[2019-09-26] MEDS: amLODIPine 2.5 MG TAB PO SCH (07:57)
[2019-09-26] MEDS: FUROSEMIDE 40 MG TAB PO SCH (07:57)
[2019-09-26] MEDS: POTASSIUM CHLORIDE ER 20 MEQ TAB.ER PO SCH (07:57)
[2019-09-26 08:35] LABS: INR 2.5 (<1.2); Prothrombin Time 24.2 sec (9.0-12.0)
--- NOTE | 2019-09-26 10:52 | P.PN ---
Subjective This is a pleasant 84-year-old female past medical history significant for hypertension, dyslipidemia, diabetes mellitus, minimal non-obstructive CAD per cath 2009, recurrent DVT on coumadin, spinal stenosis and morbid obesity. She recently re-established in the office with Dr. Delacruz for pre-operative evaluation. She is being evaluated for back surgery at [facility] in the future. She underwent a dobutamine stress echocardiogram 09/19/2019 in preparation for surgery. The stress test was negative for stress induced ischemia. She presented to the hospital secondary to suffering 2 mechanical falls causing leg pain and inability to bear weight. We have been asked to see her in consultation secondary to a murmur. She also recently underwent an echocardiogram that revealed preserved LV systolic function with EF 55-60% and aortic stenosis with a mean gradient of 36 mmHg, mild MR, severe TR and severe PH with RVSP 60 mmHg. She is seen and examined sitting up in the chair in no acute distress. She denies chest pain, shortness of breath, dizziness or palpitations. She also denies any episodes of syncope or LOC. On exam her heart rate is irregular. EKG was requested and revealed atrial fibrillation. This is a new diagnosis for her. However, she is already on coumadin secondary to chronic DVT. Rates are somewhat controlled. Laboratory data reviewed, WBC 4.9, hgb 10.5, plt 251, INR 3.3, sodium 138, potassium 4.0, creatinine 0.67. Current daily cardiac medications include lopressor 50 mg BID, smivastatin 10 mg daily, c oumadin daily, amlodipine 2.5 mg daily, lasix 40 mg daily and potassium 20 MEQ daily. 09/26/2019 Pt is seen and examined sitting up in the chair in no acute distress. She denies chest pain, shortness of breath, dizziness or palpitations. She continues to be in atrial fibrillation at this time. She is awaiting discharge to rehab facility this afternoon. Blood pressure 121/77 heart rate 60 afebrile maintaining oxygen saturation on room air. Laboratory data reviewed, INR therapeutic at 2.5, magne sium 1.5 and TSH 1.26. She did receive magnesium supplementation yesterday afternoon. Currently maintained on Coumadin, amlodipine 2.5 mg daily, Lasix 40 mg daily, atorvastatin 10 mg at bedtime and Lopressor 50 mg twice a day. GENERAL: This is a 84-year-old female in no apparent distress at the time of my examination. HEENT: Head is atraumatic, normocephalic. Pupils are equal, round. Sclerae anicteric. Conjunctivae are clear. Mucous membranes of the mouth are moist. Neck is supple. There is no jugular venous distention. No carotid bruit is heard. LUNGS: Clear to auscultation no wheezes, rales or rhonchi. No chest wall tenderness is noted on palpation or with deep breathing. HEART: Irregular rate and rhythm with systolic ejection murmur at the base, no rubs or gallops. S1 and S2 heard. EXTREMITIES: Bilateral lower extremity non-pitting edema. ASSESSMENT Frequent falls, no syncope or LOC New onset paroxysmal atrial fibrillation with mostly controlled ventricular rates, already anti-coagulation with coumadin for chronic DVT Hypomagnesemia History of chronic DVT's on coumadin Possible fibula fracture, being followed by ortho. No plans for surgery at this time. Valvular heart disease, aortic, mitral and tricuspid Aortic stenosis Pulmonary hypertension Hypertension Dyslipidemia Diabetes mellitus Minimal non-obstructive CAD per cath 2009 Spinal stenosis Morbid obesity, BMI 50 PLAN Continue current medical regimen. Stable from a cardiac perspective. Follow-up with Dr. Delacruz upon discharge. Nurse Practitioner note has been reviewed, I agree with a documented findings and plan of care. Patient was seen and examined. Objective - Vital Signs Vital signs: Vital Signs Temp 97.5 F L 09/26/19 07:05 Pulse 60 09/26/19 07:05 Resp 16 09/26/19 07:05 BP 121/77 09/26/19 07:05 Pulse Ox 98 09/26/19 07:05 Intake & Output 09/25/19 09/26/19 09/26/19 18:59 06:59 18:59 Intake Total 800 300 Balance 800 300 Weight 136.531 kg Intake: Oral 800 300 Other: Voiding Method Bedside Commode # Voids 1 2 # Bowel Movements 1 - Labs CBC & Chem 7: 09/25/19 06:50 09/25/19 06:50 Labs: Abnormal Lab Results - Last 24 Hours (Table) 09/25/19 09/25/19 09/25/19 Range/Units 06:50 11:43 17:02 PT (9.0-12.0) sec INR (<1.2) POC Glucose (mg/dL) 155 H 114 H (75-99) mg/dL Magnesium 1.5 L (1.6-2.3) mg/dL 09/25/19 09/26/19 Range/Units 20:17 07:06 PT 24.2 H (9.0-12.0) sec INR 2.5 H (<1.2) POC Glucose (mg/dL) 126 H (75-99) mg/dL Magnesium (1.6-2.3) mg/dL
[2019-09-26 11:49] LABS: Glucose,Whole Blood 106 mg/dL (75-99)
--- NOTE | 2019-09-26 13:51 | P.CONS ---
History of Present Illness - Reason for Consult Consult date: 09/24/19 Medical management Requesting physician: Juvenal Sanchez - Chief Complaint Left leg pain and multiple falls, hypertension, hyperlipidemia, pulmonary e - History of Present Illness 84-year-old female one of Dr. Mcdowell patient who was in [facility] recently after was treated for complicated left lower lobe pneumonia was released from the senior care back home has been having difficult time of ambulating she live with her and has multiple other medical issue patient had fell on when she was trying to move quickly lost her balance and fell for the second time today before admission when she tried to kick off her shoes she denies any loss of consciousness denies any chest pain or shortness of breath no syncopal episode at the time no palpitation no worsening shortness of breath. Patient was not able to ambulate and walk and developed to have significant pain and discomfort in the left leg area ended up coming to the emergency department at [facility] where was seen and evaluated x-ray of the left leg and ankle showed possible Tibial and Fibia a fracture at the time. Patient was admitted to Dr. Sanchez service orthopedic for possible intervention. Apparently patient was post to see Dr. Carter in medical consultation who was on-call for the medical from the emergency room the patient had seen Dr. Liu and she was to see or group in consultation for potential going to [facility] under Dr. Liu's service when she is ready. The consult was changed to our service late on Tuesday morning for consultation. Patient was seen and evaluated by Dr. Sanchez and CT of the leg was done came back a clear for no sign of fracture at the time. Patient will be on conservative management attempt to walk with physical therapy she required 2 person assistance and highly recommended rehab. Review of Systems CONSTITUTIONAL: Morbidly obese no acute respiratory distress. EYES: No icterus sclerae, no conjunctivitis. EARS, NOSE, MOUTH, THROAT, and FACE: No sore throat, lymphadenopathy, carotid bruits or deformity. RESPIRATORY: Positive shortness of breath cough wheezes CARDIOVASCULAR: No CP, positive Palpitation, positive PND, positive Orthopnea, no angina. GASTROINTESTINAL: No Abd pain, Nausea or vomiting, no Diarrhea or constipation, No GI Bleed, no distention or masses. GENITOURINARY: Negative for Hematuria or UTI, no kidney stones. INTEGUMENT/BREAST: Positive pain and discomfort in both lower extremity and legs mostly of the left side. HEMATOLOGIC/LYMPHATIC: Negative for bleed or purpura. MUSCULOSKELTAL: Positive pain and arthritis and significant discomfort in the ankle area in the left side with multiple bruises. NEURLOGICAL: No LOC, Sz or syncope, blurred vision dizziness or abnormality.. BEHAVIORAL/PSYCH: Negative. ENDOCRINE: Negative. 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 M orbid obesity, mass on right kidney, cellulitis BLE, fall at home, history of bilateral total knee replacements approximately [address] Augustin. History of spinal stenosis and is scheduled to have surgery at another facility in the near future History of Any Multi-Drug Resistant Organisms: None Reported Past Surgical History: Breast Surgery, Cholecystectomy, Joint Replacement, Orthopedic Surgery Additional Past Surgical History / Comment(s): thelma knee replac; L shoulder replac.; carpel tunnel vaginal duct cyst; benign breast surg; cataracts; retinal repair left eye Past Anesthesia/Blood Transfusion Reactions: No Reported Reaction Past Psychological History: No Psychological Hx Reported Additional Psychological History / Comment(s): pt states has anxiety and depression, but she is not taking any medication for that Smoking Status: Never smoker Past Alcohol Use History: None Reported Past Drug Use History: None Reported - Past Family History Father Family Medical History: Deep Vein Thrombosis (DVT) Son(s) Family Medical History: Deep Vein Thrombosis (DVT) Medications and Allergies Home Medications Medication Instructions Recorded Confirmed Type Metoprolol Tartrate [Lopressor] 50 mg PO BID 08/25/17 09/24/19 History Simvastatin [Zocor] 10 mg PO HS 08/25/17 09/24/19 History glipiZIDE [Glucotrol] 5 mg PO HS 08/25/17 09/24/19 History metFORMIN HCL [Glucophage] 1,000 mg PO AC-BID 08/25/17 09/24/19 History Furosemide [Lasix] 40 mg PO DAILY 08/19/19 09/24/19 History Omeprazole [PriLOSEC] 20 mg PO DAILY 08/19/19 09/24/19 History Potassium Chloride [Klor-Con 20] 20 meq PO DAILY 08/19/19 09/24/19 History amLODIPine [Norvasc] 2.5 mg PO DAILY 08/19/19 09/24/19 History Acetaminophen Tab [Tylenol] 650 mg PO Q6HR PRN tab 08/22/19 09/24/19 Rx HYDROcodone/APAP 5-325MG [Toney 1 each PO Q4HR PRN tab 09/25/19 Rx 5-325] Ipratropium-Albuterol Nebulize 3 ml INHALATION RT-QID PRN 09/25/19 Rx [Duoneb 0.5 mg-3 mg/3 ml Soln] ampul.neb Warfarin [Coumadin] 1.5 mg PO ONCE@1800 dose 09/25/19 Rx guaiFENesin [Mucinex] 600 mg PO Q12HR PRN tablet.er 09/25/19 Rx Allergies Allergy/AdvReac Type Severity Reaction Status Date / Time azithromycin Allergy Dyspnea & Verified 09/24/19 07:22 nausea ciprofloxacin [From Cipro] Allergy Dyspnea & Verified 09/24/19 07:22 nausea Penicillins Allergy Rash/Hives Verified 09/24/19 07:22 Physical Exam Vitals: Vital Signs Temp Pulse Resp BP BP Pulse Ox 09/25/19 07:10 98.1 F 60 15 127/69 96 09/25/19 04:12 18 09/25/19 01:27 98.1 F 60 18 132/75 96 09/25/19 00:00 18 09/24/19 20:09 18 09/24/19 19:48 98.2 F 67 18 125/69 96 09/24/19 14:10 98.3 F 69 17 123/65 96 Intake and Output 09/24/19 09/25/19 09/25/19 22:59 06:59 14:59 Intake Total 250 Balance 250 Intake: Oral 250 Other: Voiding Method Bedside Commode Bedside Commode # Voids 2 Weight 136.531 kg General Appearance: Alert, cooperative, no distress, appears stated age. With obesity Neck HEENT: Supple, no lymphadenopathy, no thyroid enlargement, no carotid bruits. Lungs: Clear to auscultation without crackles or wheezes no rhonchi, no d eformity. Chest Wall: Decrease expansion with deep inspiration no tenderness and no deformity was found on exam, no costochondral pain or discomfort. Heart: Irregular rate and rhythm, S1, S2, positive S3 , no murmur, rub or gallop. Back: Symmetric, no curvature, ROM normal, no CVA tenderness. Abdomen: Soft, non-tender, bowel sounds active all four quadrants, no masses, no organomegaly. Extremities: Chronic lymphedema with significant bruising discomfort from the knee down with scar tissue over both legs left leg had significant worsening bruise discomfort pain and soft tissue swelling in the lower part of the leg. Pulses: 2+ and symmetric. Skin: Skin color, texture, tugor normal, no rashes or lesions. Neurologic: Alert oriented x3 cranial nerves II through XII intact, no motor deficit, no abnormal balance or gait. Results CBC & Chem 7: 09/25/19 06:50 09/25/19 06:50 Labs: Abnormal Lab Results - Last 24 Hours (Table) 09/24/19 09/24/19 09/24/19 Range/Units 07:35 07:35 07:35 Hgb 10.3 L (11.4-16.0) gm/dL Hct 33.8 L (34.0-46.0) % MCHC 30.6 L (31.0-37.0) g/dL RDW 16.6 H (11.5-15.5) % PT (9.0-12.0) sec INR (<1.2) Glucose 135 H (74-99) mg/dL POC Glucose (mg/dL) (75-99) mg/dL Hemoglobin A1c 6.1 H (4.0-6.0) % Magnesium (1.6-2.3) mg/dL Total Protein (6.3-8.2) g/dL Albumin 3.2 L (3.5-5.0) g/dL 09/24/19 09/24/19 09/25/19 Range/Units 17:04 20:30 06:50 Hgb (11.4-16.0) gm/dL Hct (34.0-46.0) % MCHC (31.0-37.0) g/dL RDW (11.5-15.5) % PT 31.4 H (9.0-12.0) sec INR 3.3 H (<1.2) Glucose (74-99) mg/dL POC Glucose (mg/dL) 110 H 131 H (75-99) mg/dL Hemoglobin A1c (4.0-6.0) % Magnesium (1.6-2.3) mg/dL Total Protein (6.3-8.2) g/dL Albumin (3.5-5.0) g/dL 09/25/19 09/25/19 09/25/19 Range/Units 06:50 06:50 06:50 Hgb 10.5 L (11.4-16.0) gm/dL Hct 33.5 L (34.0-46.0) % MCHC (31.0-37.0) g/dL RDW 16.6 H (11.5-15.5) % PT (9.0-12.0) sec INR (<1.2) Glucose (74-99) mg/dL POC Glucose (mg/dL) (75-99) mg/dL Hemoglobin A1c (4.0-6.0) % Magnesium 1.5 L (1.6-2.3) mg/dL Total Protein 6.2 L (6.3-8.2) g/dL Albumin 3.1 L (3.5-5.0) g/dL 09/25/19 Range/Units 11:43 Hgb (11.4-16.0) gm/dL Hct (34.0-46.0) % MCHC (31.0-37.0) g/dL RDW (11.5-15.5) % PT (9.0-12.0) sec INR (<1.2) Glucose (74-99) mg/dL POC Glucose (mg/dL) 155 H (75-99) mg/dL Hemoglobin A1c (4.0-6.0) % Magnesium (1.6-2.3) mg/dL Total Protein (6.3-8.2) g/dL Albumin (3.5-5.0) g/dL Assessment and Plan Plan: 1 trauma post fall with severe pain in the left leg area with no warrantee sign of fracture on CAT scan agreed by orthopedic, patient will have conservative management still have significant pain and discomfort required 2 person assist in continue current management patient will require rehab. 2 A. fib with RVR: Patient to continue metoprolol and still on warfarin INR will be done and daily basis and continue to watch her INR between 2 and 3. 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 5 chronic diastolic dysfunction congestive heart failure: Remain on furosemide, amlodipine, and metoprolol. 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 7 hyperlipidemia: Remain on simvastatin 10 mg daily. 8 diabetes: Remain on the glipizide and metformin, Accu-Chek with sliding scales coverage and be done continue to watch blood sugar. 9 GERD/GI prophylaxis: Continue Prilosec 20 mg daily. 10 DVT prophylaxis: Patient is on management for DVT continue warfarin keep watching INR. 11 mild anemia: With hemoglobin around 10 continue iron and multivitamin supplement. CODE STATUS: Full code. Dr. Laura brady thank you much for the consult for can be any further help to please let me know thank you.
--- NOTE | 2019-09-26 13:53 | P.DS ---
Providers Date of admission: 09/24/19 06:23 Attending physician: Sanju Herrera Consults: 09/24/19 06:25 Consult Physician Routine Consulting Provider: Kinjal Liu Consult Reason/Comments: medical management Do you want consulting provider notified?: Already Contacted 09/24/19 14:23 Consult Physician Routine Consulting Provider: Sherri Crowley Consult Reason/Comments: fall, murmur Do you want consulting provider notified?: Yes Primary care physician: Stated None Hospital Course: - Chief Complaint Left leg pain and multiple falls, hypertension, hyperlipidemia, pulmonary e - History of Present Illness 84-year-old female one of Dr. Mcdowell patient who was in [facility] recently after was treated for complicated left lower lobe pneumonia was released from the long-term back home has been having difficult time of ambulating she live with her and has multiple other medical issue patient had fell on when she was trying to move quickly lost her balance and fell for the second time today before admission when she tried to kick off her shoes she denies any loss of consciousness denies any chest pain or shortness of breath no syncopal episode at the time no palpitation no worsening shortness of breath. Patient was not able to ambulate and walk and developed to have significant pain and discomfort in the left leg area ended up coming to the emergency department at [facility] where was seen and evaluated x-ray of the left leg and ankle showed possible Tibial and Fibia a fracture at the time. Patient was admitted to Dr. Sanchez service orthopedic for possible intervention. Apparently patient was post to see Dr. Carter in medical consultation who was on-call for the medical from the emergency room the patient had seen Dr. Liu and she was to see or group in consultation for potential going to [facility] under Dr. Liu's service when she is ready. The consult was changed to our service late on Tuesday morning for consultation. Patient was seen and evaluated by Dr. Sanchez and CT of the leg was done came back a clear for no sign of fracture at the time. Patient will be on conservative management attempt to walk with physical therapy she required 2 person assistance and highly recommended rehab. Review of Systems CONSTITUTIONAL: Morbidly obese no acute respiratory distress. EYES: No icterus sclerae, no conjunctivitis. EARS, NOSE, MOUTH, THROAT, and FACE: No sore throat, lymphadenopathy, carotid bruits or deformity. RESPIRATORY: Positive shortness of breath cough wheezes CARDIOVASCULAR: No CP, positive Palpitation, positive PND, positive Orthopnea, no angina. GASTROINTESTINAL: No Abd pain, Nausea or vomiting, no Diarrhea or constipation, No GI Bleed, no distention or masses. GENITOURINARY: Negative for Hematuria or UTI, no kidney stones. INTEGUMENT/BREAST: Positive pain and discomfort in both lower extremity and legs mostly of the left side. HEMATOLOGIC/LYMPHATIC: Negative for bleed or purpura. MUSCULOSKELTAL: Positive pain and arthritis and significant discomfort in the ankle area in the left side with multiple bruises. NEURLOGICAL: No LOC, Sz or syncope, blurred vision dizziness or abnormality.. BEHAVIORAL/PSYCH: Negative. ENDOCRINE: Negative. Physical Exam General Appearance: Alert, cooperative, no distress, appears stated age. With obesity Neck HEENT: Supple, no lymphadenopathy, no thyroid enlargement, no carotid bruits. Lungs: Clear to auscultation without crackles or wheezes no rhonchi, no deformity. Chest Wall: Decrease expansion with deep inspiration no tenderness and no deformity was found on exam, no costochondral pain or discomfort. Heart: Irregular rate and rhythm, S1, S2, positive S3 , no murmur, rub or gallop. Back: Symmetric, no curvature, ROM normal, no CVA tenderness. Abdomen: Soft, non-tender, bowel sounds active all four quadrants, no masses, no organomegaly. Extremities: Chronic lymphedema with significant bruising discomfort from the knee down with scar tissue over both legs left leg had significant worsening bruise discomfort pain and soft tissue swelling in the lower part of the leg. Pulses: 2+ and symmetric. Skin: Skin color, texture, tugor normal, no rashes or lesions. Neurologic: Alert oriented x3 cranial nerves II through XII intact, no motor deficit, no abnormal balance or gait. Assessment and Plan Plan: 1 trauma post fall with severe pain in the left leg area with no warrantee sign of fracture on CAT scan agreed by orthopedic, patient will have conservative management still have significant pain and discomfort required 2 person assist in continue current management patient will require rehab. 2 A. fib with RVR: Patient to continue metoprolol and still on warfarin INR will be done and daily basis and continue to watch her INR between 2 and 3. 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 5 chronic diastolic dysfunction congestive heart failure: Remain on furosemide, amlodipine, and metoprolol. 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 7 hyperlipidemia: Remain on simvastatin 10 mg daily. 8 diabetes: Remain on the glipizide and metformin, Accu-Chek with sliding scales coverage and be done continue to watch blood sugar. 9 GERD/GI prophylaxis: Continue Prilosec 20 mg daily. 10 DVT prophylaxis: Patient is on management for DVT continue warfarin keep watching INR. 11 mild anemia: With hemoglobin around 10 continue iron and multivitamin supplement. Patient was evaluated by orthopedic, by physical therapy and social service and agree best management to transfer to one of the rehab center and [facility] for physical therapy to lab patient is able to ambulate and walk. Regular follow-up with Dr. Sanchez orthopedic in [address] Liu and Willy. Patient Condition at Discharge: Fair Plan - Discharge Summary Discharge Rx Participant: No New Discharge Prescriptions: New Warfarin [Coumadin] 1.5 mg PO ONCE@1800 dose Ipratropium-Albuterol Nebulize [Duoneb 0.5 mg-3 mg/3 ml Soln] 3 ml INHALATION RT-QID PRN ampul.neb PRN Reason: Shortness Of Breath Or Wheezing guaiFENesin [Mucinex] 600 mg PO Q12HR PRN tablet.er PRN Reason: Cough HYDROcodone/APAP 5-325MG [Mcgregor 5-325] 1 each PO Q4HR PRN tab PRN Reason: Moderate Pain Continue Simvastatin [Zocor] 10 mg PO HS metFORMIN HCL [Glucophage] 1,000 mg PO AC-BID Metoprolol Tartrate [Lopressor] 50 mg PO BID glipiZIDE [Glucotrol] 5 mg PO HS Potassium Chloride [Klor-Con 20] 20 meq PO DAILY Furosemide [Lasix] 40 mg PO DAILY amLODIPine [Norvasc] 2.5 mg PO DAILY Omeprazole [PriLOSEC] 20 mg PO DAILY Acetaminophen Tab [Tylenol] 650 mg PO Q6HR PRN tab PRN Reason: Fever And/ Or Pain Discontinued Warfarin [Coumadin] 1.25 mg PO MOWE Warfarin Sodium 2.5 mg PO SUTUTHSA Discharge Medication List Metoprolol Tartrate [Lopressor] 50 mg PO BID 08/25/17 [History] Simvastatin [Zocor] 10 mg PO HS 08/25/17 [History] glipiZIDE [Glucotrol] 5 mg PO HS 08/25/17 [History] metFORMIN HCL [Glucophage] 1,000 mg PO AC-BID 08/25/17 [History] Furosemide [Lasix] 40 mg PO DAILY 08/19/19 [History] Omeprazole [PriLOSEC] 20 mg PO DAILY 08/19/19 [History] Potassium Chloride [Klor-Con 20] 20 meq PO DAILY 08/19/19 [History] amLODIPine [Norvasc] 2.5 mg PO DAILY 08/19/19 [History] Acetaminophen Tab [Tylenol] 650 mg PO Q6HR PRN tab 08/22/19 [Rx] HYDROcodone/APAP 5-325MG [Mcgregor 5-325] 1 each PO Q4HR PRN tab 09/25/19 [Rx] Ipratropium-Albuterol Nebulize [Duoneb 0.5 mg-3 mg/3 ml Soln] 3 ml INHALATION RT-QID PRN ampul.neb 09/25/19 [Rx] Warfarin [Coumadin] 1.5 mg PO ONCE@1800 dose 09/25/19 [Rx] guaiFENesin [Mucinex] 600 mg PO Q12HR PRN tablet.er 09/25/19 [Rx] Follow up Appointment(s)/Referral(s): Paul Delacruz MD [STAFF PHYSICIAN] - 2 Weeks Kinjal Liu MD [STAFF PHYSICIAN] - 1-2 days Juvenal Sanchez DO [Doctor of Osteopathic Medicine] - As Needed (Patient may follow-up with Dr. Deniz Sanchez at [facility] on an as-needed basis following discharge. ) Ambulatory/Diagnostic Orders: Prothrombin Time INR [LAB.AMB] Location: None Selected Discharge Disposition: TRANSFER TO SNF/ECF
[2019-09-26 14:47] VITALS: BP 149/71; PULSE 69; RESP 18; TEMP 98
== END 2019-09-26 16:29 ==
LOC: EC 04:15 → 4SSUR 06:23
PROVIDERS: ADMIT Internal Medicine Geriatric Medicine; ATTEND Internal Medicine Geriatric Medicine
DX: S89.92XA Unspecified injury of left lower leg, initial encounter (principal); M79.662 Pain in left lower leg; R29.6 Repeated falls; E78.5 Hyperlipidemia, unspecified; E11.9 Type 2 diabetes mellitus without complications; M19.90 Unspecified osteoarthritis, unspecified site; K21.9 Gastro-esophageal reflux disease without esophagitis; E66.01 Morbid (severe) obesity due to excess calories; Z68.43 Body mass index [BMI] 50.0-59.9, adult; W18.30XA Fall on same level, unspecified, initial encounter; Y92.009 Unspecified place in unspecified non-institutional (private) residence as the place of occurrence of the external cause; N28.89 Other specified disorders of kidney and ureter; R60.0 Localized edema; I87.8 Other specified disorders of veins; M48.061 Spinal stenosis, lumbar region without neurogenic claudication; M85.80 Other specified disorders of bone density and structure, unspecified site; M25.572 Pain in left ankle and joints of left foot; M25.462 Effusion, left knee; I25.10 Atherosclerotic heart disease of native coronary artery without angina pectoris; I08.3 Combined rheumatic disorders of mitral, aortic and tricuspid valves; I27.20 Pulmonary hypertension, unspecified; I48.0 Paroxysmal atrial fibrillation; F32.9 Major depressive disorder, single episode, unspecified; F41.9 Anxiety disorder, unspecified; I11.0 Hypertensive heart disease with heart failure; I50.32 Chronic diastolic (congestive) heart failure; D64.9 Anemia, unspecified; J44.9 Chronic obstructive pulmonary disease, unspecified; R79.1 Abnormal coagulation profile; Z79.899 Other long term (current) drug therapy; Z79.84 Long term (current) use of oral hypoglycemic drugs; Z79.01 Long term (current) use of anticoagulants; Z88.0 Allergy status to penicillin; Z88.1 Allergy status to other antibiotic agents; Z96.653 Presence of artificial knee joint, bilateral; Z86.711 Personal history of pulmonary embolism; Z87.01 Personal history of pneumonia (recurrent); Z87.2 Personal history of diseases of the skin and subcutaneous tissue; Z86.718 Personal history of other venous thrombosis and embolism; Z91.81 History of falling; Z90.49 Acquired absence of other specified parts of digestive tract; Z96.612 Presence of left artificial shoulder joint; Z98.42 Cataract extraction status, left eye; Z98.41 Cataract extraction status, right eye; Z86.69 Personal history of other diseases of the nervous system and sense organs; Z82.49 Family history of ischemic heart disease and other diseases of the circulatory system
CPT/HCPCS: 96365; 96366; 99285; 36415; 93005; 97116; 97530; 97162; 97535 ×2; 97166; 80053 ×2; 84443; 83735 ×2; 85025 ×2; 85610 ×3; 83036; 73590; 73600; 93971; 73700; G0378 ×3; J3475

== ENCOUNTER 2019-10-06 08:26 | Emergency (ER) | payer MEDICARE ==
[2019-10-06 08:37] VITALS: PULSE 59; RESP 18; TEMP 97.8
--- NOTE | 2019-10-06 09:27 | ED ---
Extremity Problem HPI - General Chief complaint: Extremity Problem,Nontraumatic Stated complaint: Fall Time Seen by Provider: 10/06/19 08:26 Source: patient, family, EMS, RN notes reviewed Mode of arrival: EMS Limitations: no limitations - History of Present Illness Initial comments: This 84-year-old female who does have a history of spinal stenosis and does reside in a local residential who was brought in for evaluation of left knee pain. The initial report was that she had fallen twice in last week and when trying to ambulate today she had pain with weightbearing. Was later learned the patient fell over a week ago had already been evaluated by orthopedics and found not to have any issues with the left knee with respect any fractures or subl uxations. She does have some increased low back pain. Concern is for the left leg in general and for progression of lumbar disease. No reports of urinary or fecal incontinence. No fevers chills nausea vomiting sweats. MD Complaint: extremity pain - Related Data Home Medications Medication Instructions Recorded Confirmed Metoprolol Tartrate [Lopressor] 50 mg PO BID 08/25/17 09/24/19 Simvastatin [Zocor] 10 mg PO HS 08/25/17 09/24/19 glipiZIDE [Glucotrol] 5 mg PO HS 08/25/17 09/24/19 metFORMIN HCL [Glucophage] 1,000 mg PO AC-BID 08/25/17 09/24/19 Furosemide [Lasix] 40 mg PO DAILY 08/19/19 09/24/19 Omeprazole [PriLOSEC] 20 mg PO DAILY 08/19/19 09/24/19 Potassium Chloride [Klor-Con 20] 20 meq PO DAILY 08/19/19 09/24/19 amLODIPine [Norvasc] 2.5 mg PO DAILY 08/19/19 09/24/19 Previous Rx's Medication Instructions Recorded Acetaminophen Tab [Tylenol] 650 mg PO Q6HR PRN tab 08/22/19 HYDROcodone/APAP 5-325MG [Joanna 1 each PO Q4HR PRN tab 09/25/19 5-325] Ipratropium-Albuterol Nebulize 3 ml INHALATION RT-QID PRN 09/25/19 [Duoneb 0.5 mg-3 mg/3 ml Soln] ampul.neb Warfarin [Coumadin] 1.5 mg PO ONCE@1800 dose 09/25/19 guaiFENesin [Mucinex] 600 mg PO Q12HR PRN tablet.er 09/25/19 Allergies Allergy/AdvReac Type Severity Reaction Status Date / Time azithromycin Allergy Dyspnea & Verified 09/24/19 07:22 nausea ciprofloxacin [From Cipro] Allergy Dyspnea & Verified 09/24/19 07:22 nausea Penicillins Allergy Rash/Hives Verified 09/24/19 07:22 Review of Systems ROS Statement: Those systems with pertinent positive or pertinent negative responses have been documented in the HPI. ROS Other: All systems not noted in ROS Statement are negative. 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 Morbid obesity, mass on right kidney, cellulitis BLE, fall at home, history of bilateral total knee replacements approximately [address] Augustin. History of spinal stenosis and is scheduled to have surgery at another facility in the near future History of Any Multi-Drug Resistant Organisms: None Reported Past Surgical History: Breast Surgery, Cholecystectomy, Joint Replacement, Orthopedic Surgery Additional Past Surgical History / Comment(s): thelma knee replac; L shoulder r eplac.; carpel tunnel vaginal duct cyst; benign breast surg; cataracts; retinal repair left eye Past Anesthesia/Blood Transfusion Reactions: No Reported Reaction Past Psychological History: No Psychological Hx Reported Smoking Status: Never smoker Past Alcohol Use History: None Reported Past Drug Use History: None Reported - Past Family History Father Family Medical History: Deep Vein Thrombosis (DVT) Son(s) Family Medical History: Deep Vein Thrombosis (DVT) General Exam - General Exam Comments Initial Comments: Is a well-developed well-nourished awake alert oriented 3 female Limitations: no limitations General appearance: alert, in no apparent distress Head exam: Present: atraumatic, normocephalic, normal inspection Eye exam: Present: normal appearance, PERRL, EOMI. Absent: scleral icterus, conjunctival injection, periorbital swelling ENT exam: Present: normal exam, mucous membranes moist Neck exam: Present: normal inspection. Absent: tenderness, meningismus, lymphadenopathy Respiratory exam: Present: normal lung sounds bilaterally. Absent: respiratory distress, wheezes, rales, rhonchi, stridor Cardiovascular Exam: Present: regular rate, normal rhythm, normal heart sounds. Absent: systolic murmur, diastolic murmur, rubs, gallop, clicks GI/Abdominal exam: Present: soft, normal bowel sounds. Absent: distended, tenderness, guarding, rebound, rigid Extremities exam: Present: normal inspection, full ROM, normal capillary refill. Absent: tenderness, pedal edema, joint swelling, calf tenderness Back exam: Present: normal inspection, other (Stasis dermatitis bilaterally with peripheral edema. There is some mild tenderness palpation over the left posterior knee no definite evidence of step-off or crepitation. Tenderness over the left gluteus. Some left lateral spinous tenderness at the L4 5 S1 region) Neurological exam: Present: alert, oriented X3, CN II-XII intact Psychiatric exam: Present: normal affect, normal mood Skin exam: Present: warm, dry, intact, other (Stasis changes to the lower extremities with some erythema no evidence of overt infection.). Absent: rash Course Vital Signs 10/06/19 10/06/19 10/06/19 08:30 08:34 08:57 Temperature 97.8 F Pulse Rate 59 L Respiratory 18 18 Rate Blood Pressure 143/70 O2 Sat by Pulse 98 99 97 Oximetry 10/06/19 10/06/19 09:01 09:30 Temperature Pulse Rate Respiratory 18 Rate Blood Pressure 143/70 153/81 O2 Sat by Pulse 92 L Oximetry Medical Decision Making - Medical Decision Making I did discuss findings with patient family members as well as with Dr. Herrera. Patient will be discharged back to the residential she is a keep her follow-up since planned and return when necessary she does have wheelchair as well as walker for assistance for transferring and transport. - Radiology Data Radiology results: report reviewed (I did review the imaging and reports CT shows spinal stenosis and degenerative changes no acute findings ultrasound showed no DVT nothing new.), image reviewed Disposition Clinical Impression: Spinal stenosis, Sciatica Disposition: HOME SELF-CARE Condition: Good Instructions (If sedation given, give patient instructions): Sciatica (ED), Lumbar Radiculopathy (ED) Is patient prescribed a controlled substance at d/c from ED?: No Referrals: Kinjal Liu MD [Primary Care Provider] - 1-2 days
--- NOTE | 2019-10-06 10:08 | CT ---
EXAMINATION TYPE: CT lumbar spine wo con DATE OF EXAM: 10/06/2019 9:44 AM COMPARISON: None. HISTORY: Fall, left leg weakness CT DLP: 1861.4 mGycm Automated exposure control for dose reduction was used. Unenhanced CT of the lumbar spine was performed. Bone and soft tissue window settings are submitted as well as coronal and sagittal reconstructions. FINDINGS: There is mild bronchiectasis in the lower lobes bilaterally. There is mild to moderate atheromatous calcification of the visualized arterial tree. There is a grade 1 degenerative antegrade listhesis of L4 on L5 and L3 on L4 with a retrograde listhe sis of L1 on L2. Alignment is otherwise normal. There is no spondylolysis. L1-L2: There is disc space loss. There is hypertrophic spondylosis and spondylosis deformans. There i s a retrograde listhesis. There is bilateral intervertebral foraminal narrowing. There is a diffuse d isc displacement. This hypertrophic changes in the facets. L2-L3: There is disc space loss and a vacuum phenomena. There is bilateral intervertebral foraminal n arrowing, worse on the left than the right. There is a diffuse disc displacement. There is marked hyp ertrophic changes in the facets. There is moderate to severe central canal stenosis. L3-L4: There is a mild antegrade listhesis of L3 on L4. The intervertebral foramina appear reasonably well-maintained. There is a diffuse disc displacement. There is marked hypertrophic changes in the f acets. There is severe central canal stenosis. L4-L5: Intervertebral foramina are reasonably well-maintained. There is marked hypertrophic changes i n the facets. There is a mild disc displacement. There is moderate central canal stenosis. L5-S1: There is disc space loss. There are degenerative changes in the facets. There is bilateral int ervertebral foraminal narrowing. IMPRESSION: 1. NO ACUTE OSSEOUS LESION. 2. SEVERE DEGENERATIVE CHANGE 3. VARYING DEGREES OF CENTRAL CANAL STENOSIS MOST MARKED AT L2-3 AND L3-4.
[2019-10-06 10:22] VITALS: BP 153/81
--- NOTE | 2019-10-06 11:13 | US ---
EXAMINATION TYPE: US venous doppler duplex LE DATE OF EXAM: 10/06/2019 10:54 AM COMPARISON: Previous study dated 09/24/2019. CLINICAL HISTORY: Left posterior knee pain, history of DVT bilaterally, recent fall 2 weeks ago; on C oumadin SIDE PERFORMED: Left TECHNIQUE: The lower extremity deep venous system is examined utilizing real time linear array sonog silver with graded compression, doppler sonography and color-flow sonography. VESSELS IMAGED: Common Femoral Vein Deep Femoral Vein Greater Saphenous Vein * Femoral Vein Popliteal Vein Small Saphenous Vein * Proximal Calf Veins (* superficial vessels) Left Leg: Non occluding chronic wall changes noted upper Left Femoral Vein where vein dilates (possi ble recanalized accessory vein at this level on images #[id number], [id number], 2560, 4608, and [id number].) Non occlud ing chronic wall echoes also noted distal Left Femoral Vein and in Left Popliteal Vein. No popliteal fossa lesion is seen. IMPRESSION: 1. THIS EXAMINATION IS NEGATIVE FOR ACUTE DVT IN THE LEFT LEG. 2. THIS EXAMINATION IS POSITIVE FOR OLD DVT WITHIN THE LEFT LEG.
== END 2019-10-06 12:22 | disposition home or self-care (01) ==
LOC: EC 08:26
DX: M48.061 Spinal stenosis, lumbar region without neurogenic claudication (principal); M54.42 Lumbago with sciatica, left side; I87.2 Venous insufficiency (chronic) (peripheral); M25.562 Pain in left knee; E11.9 Type 2 diabetes mellitus without complications; K21.9 Gastro-esophageal reflux disease without esophagitis; E78.5 Hyperlipidemia, unspecified; I10 Essential (primary) hypertension; M19.90 Unspecified osteoarthritis, unspecified site; Z86.718 Personal history of other venous thrombosis and embolism; Z88.0 Allergy status to penicillin; Z88.1 Allergy status to other antibiotic agents; Z79.84 Long term (current) use of oral hypoglycemic drugs; Z79.899 Other long term (current) drug therapy; Z96.653 Presence of artificial knee joint, bilateral; Z96.612 Presence of left artificial shoulder joint; Z91.81 History of falling
CPT/HCPCS: 72131; 99284

== ENCOUNTER 2019-10-22 03:07 | Inpatient (IN) | payer MEDICARE ==
[2019-10-22] MEDS ORDERED: MORPHINE SULFATE 4 MG/ML SYRINGE IV STA (03:36)
--- NOTE | 2019-10-22 03:41 | ED ---
Abdominal Pain HPI - General Stated Complaint: Nausea, vomiting Time Seen by Provider: 10/22/19 03:25 - History of Present Illness MD Complaint: abdominal pain -: days(s) Location: epigastric Radiation: none Migration to: no migration Severity scale (1-10): 9 Quality: aching Consistency: constant Improves With: nothing Worsens With: nothing Associated Symptoms: nausea, vomiting - Related Data Home Medications Medication Instructions Recorded Confirmed Metoprolol Tartrate [Lopressor] 50 mg PO BID 08/25/17 09/24/19 Simvastatin [Zocor] 10 mg PO HS 08/25/17 09/24/19 glipiZIDE [Glucotrol] 5 mg PO HS 08/25/17 09/24/19 metFORMIN HCL [Glucophage] 1,000 mg PO AC-BID 08/25/17 09/24/19 Furosemide [Lasix] 40 mg PO DAILY 08/19/19 09/24/19 Omeprazole [PriLOSEC] 20 mg PO DAILY 08/19/19 09/24/19 Potassium Chloride [Klor-Con 20] 20 meq PO DAILY 08/19/19 09/24/19 amLODIPine [Norvasc] 2.5 mg PO DAILY 08/19/19 09/24/19 Previous Rx's Medication Instructions Recorded Acetaminophen Tab [Tylenol] 650 mg PO Q6HR PRN tab 08/22/19 HYDROcodone/APAP 5-325MG [Mcgrew 1 each PO Q4HR PRN tab 09/25/19 5-325] Ipratropium-Albuterol Nebulize 3 ml INHALATION RT-QID PRN 09/25/19 [Duoneb 0.5 mg-3 mg/3 ml Soln] ampul.neb Warfarin [Coumadin] 1.5 mg PO ONCE@1800 dose 09/25/19 guaiFENesin [Mucinex] 600 mg PO Q12HR PRN tablet.er 09/25/19 Allergies Allergy/AdvReac Type Severity Reaction Status Date / Time azithromycin Allergy Dyspnea & Verified 10/22/19 04:20 nausea ciprofloxacin [From Cipro] Allergy Dyspnea & Verified 10/22/19 04:20 nausea Penicillins Allergy Rash/Hives Verified 10/22/19 04:20 Review of Systems ROS Statement: Those systems with pertinent positive or pertinent negative responses have been documented in the HPI. ROS Other: All systems not noted in ROS Statement are negative. Constitutional: Denies: fever, chills Respiratory: Denies: cough, dyspnea Cardiovascular: Denies: chest pain, palpitations, edema Gastrointestinal: Reports: abdominal pain, nausea, vomiting. 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 Morbid obesity, mass on right kidney, cellulitis BLE, fall at home, history of bilateral total knee replacements approximately [address] Augustin. History of spinal stenosis and is scheduled to have surgery at another facility in the near future History of Any Multi-Drug Resistant Organisms: None Reported Past Surgical History: Breast Surgery, Cholecystectomy, Joint Replacement, Orthopedic Surgery Additional Past Surgical History / Comment(s): thelma knee replac; L shoulder replac.; carpel tunnel vaginal duct cyst; benign breast surg; cataracts; retinal repair left eye Past Anesthesia/Blood Transfusion Reactions: No Reported Reaction Past Psychological History: No Psychological Hx Reported Smoking Status: Never smoker Past Alcohol Use History: None Reported Past Drug Use History: None Reported - Past Family History Father Family Medical History: Deep Vein Thrombosis (DVT) Son(s) Family Medical History: Deep Vein Thrombosis (DVT) General Exam General appearance: alert, obese Head exam: Present: atraumatic, normocephalic Eye exam: Present: normal appearance. Absent: scleral icterus, conjunctival injection ENT exam: Present: normal oropharynx Respiratory exam: Present: normal lung sounds bilaterally. Absent: respiratory distress, wheezes, rales, rhonchi, stridor Cardiovascular Exam: Present: irregular rhythm, systolic murmur. Absent: diastolic murmur, rubs, gallop GI/Abdominal exam: Present: soft, tenderness Extremities exam: Present: normal inspection, normal capillary refill. Absent: pedal edema, calf tenderness Back exam: Present: normal inspection. Absent: CVA tenderness (R), CVA tenderness (L) Neurological exam: Present: alert Skin exam: Present: warm, dry, intact, normal color. Absent: rash Course Vital Signs 10/22/19 10/22/19 10/22/19 03:10 04:03 05:26 Temperature 98.2 F 98.2 F Pulse Rate 110 H 96 70 Respiratory 18 16 14 Rate Blood Pressure 103/68 101/64 98/53 O2 Sat by Pulse 96 95 98 Oximetry Medical Decision Making - Lab Data Result diagrams: 10/22/19 03:35 10/22/19 03:35 Lab Results 10/22/19 10/22/19 10/22/19 Range/Units 03:35 03:35 03:35 WBC 10.4 (3.8-10.6) k/uL RBC 5.15 (3.80-5.40) m/uL Hgb 13.4 (11.4-16.0) gm/dL Hct 41.4 (34.0-46.0) % MCV 80.4 (80.0-100.0) fL MCH 26.0 (25.0-35.0) pg MCHC 32.3 (31.0-37.0) g/dL RDW 16.4 H (11.5-15.5) % Plt Count 328 (150-450) k/uL Neutrophils % 77 % Lymphocytes % 16 % Monocytes % 6 % Eosinophils % 0 % Basophils % 0 % Neutrophils # 8.0 H (1.3-7.7) k/uL Lymphocytes # 1.6 (1.0-4.8) k/uL Monocytes # 0.6 (0-1.0) k/uL Eosinophils # 0.0 (0-0.7) k/uL Basophils # 0.0 (0-0.2) k/uL Hypochromasia Moderate Anisocytosis Slight PT (9.0-12.0) sec INR (<1.2) APTT (22.0-30.0) sec Sodium 135 L (137-145) mmol/L Potassium 4.7 (3.5-5.1) mmol/L Chloride 102 (98-107) mmol/L Carbon Dioxide 19 L (22-30) mmol/L Anion Gap 14 mmol/L BUN 24 H (7-17) mg/dL Creatinine 0.85 (0.52-1.04) mg/dL Est GFR (CKD-EPI)AfAm 74 (>60 ml/min/1.73 sqM) Est GFR (CKD-EPI)NonAf 64 (>60 ml/min/1.73 sqM) Glucose 222 H (74-99) mg/dL Plasma Lactic Acid Afshin 3.4 H* (0.7-2.0) mmol/L Calcium 9.7 (8.4-10.2) mg/dL Total Bilirubin 0.7 (0.2-1.3) mg/dL AST 19 (14-36) U/L ALT 19 (9-52) U/L Alkaline Phosphatase 96 (38-126) U/L Troponin I (0.000-0.034) ng/mL Total Protein 7.0 (6.3-8.2) g/dL Albumin 3.7 (3.5-5.0) g/dL Amylase 37 (30-110) U/L Lipase 81 (23-300) U/L 10/22/19 10/22/19 Range/Units 03:35 03:35 WBC (3.8-10.6) k/uL RBC (3.80-5.40) m/uL Hgb (11.4-16.0) gm/dL Hct (34.0-46.0) % MCV (80.0-100.0) fL MCH (25.0-35.0) pg MCHC (31.0-37.0) g/dL RDW (11.5-15.5) % Plt Count (150-450) k/uL Neutrophils % % Lymphocytes % % Monocytes % % Eosinophils % % Basophils % % Neutrophils # (1.3-7.7) k/uL Lymphocytes # (1.0-4.8) k/uL Monocytes # (0-1.0) k/uL Eosinophils # (0-0.7) k/uL Basophils # (0-0.2) k/uL Hypochromasia Anisocytosis PT 21.0 H (9.0-12.0) sec INR 2.1 H (<1.2) APTT 33.3 H (22.0-30.0) sec Sodium (137-145) mmol/L Potassium (3.5-5.1) mmol/L Chloride (98-107) mmol/L Carbon Dioxide (22-30) mmol/L Anion Gap mmol/L BUN (7-17) mg/dL Creatinine (0.52-1.04) mg/dL Est GFR (CKD-EPI)AfAm (>60 ml/min/1.73 sqM) Est GFR (CKD-EPI)NonAf (>60 ml/min/1.73 sqM) Glucose (74-99) mg/dL Plasma Lactic Acid Afshin (0.7-2.0) mmol/L Calcium (8.4-10.2) mg/dL Total Bilirubin (0.2-1.3) mg/dL AST (14-36) U/L ALT (9-52) U/L Alkaline Phosphatase (38-126) U/L Troponin I <0.012 (0.000-0.034) ng/mL Total Protein (6.3-8.2) g/dL Albumin (3.5-5.0) g/dL Amylase (30-110) U/L Lipase (23-300) U/L Disposition Clinical Impression: Umbilical hernia, Bowel obstruction Disposition: ADMITTED IP TO THIS [facility] Condition: Serious Is patient prescribed a controlled substance at d/c from ED?: No Referrals: Kinjal Liu MD [Primary Care Provider] - 1-2 days
[2019-10-22 03:59] LABS: Anisocytosis Slight; Basophils % (A) 0 %; Eosinophils % (A) 0 %; HCT 41.4 % (34.0-46.0); HGB 13.4 gm/dL (11.4-16.0); Hypochromasia Moderate; Lymphocytes # (A) 1.6 k/uL (1.0-4.8); Lymphocytes % (A) 16 %; MCHC 32.3 g/dL (31.0-37.0); MCV 80.4 fL (80.0-100.0); Mean Platelet Volume 7.1; Monocytes # (A) 0.6 k/uL (0-1.0); Monocytes % (A) 6 %; Neutrophils % (A) 77 %; Platelet Count 328 k/uL (150-450); RBC 5.15 m/uL (3.80-5.40); RDW 16.4 % (11.5-15.5); WBC 10.4 k/uL (3.8-10.6)
[2019-10-22 04:08] LABS: INR 2.1 (<1.2); Partial Thromboplastin Time 33.3 sec (22.0-30.0)
[2019-10-22 04:09] LABS: Albumin 3.7 g/dL (3.5-5.0); Calcium 9.7 mg/dL (8.4-10.2); Potassium 4.7 mmol/L (3.5-5.1); Total Bilirubin 0.7 mg/dL (0.2-1.3)
[2019-10-22] MEDS ORDERED: SODIUM CHLORIDE 0.9% 1,000 ML IV ONE (04:57)
--- NOTE | 2019-10-22 06:19 | CT ---
EXAMINATION TYPE: CT abdomen pelvis w con DATE OF EXAM: 10/22/2019 COMPARISON: June 22, 2019 HISTORY: Abdominal pain CT DLP: 2729.9 mGycm Automated exposure control for dose reduction was used. TECHNIQUE: Helical acquisition of images was performed from the lung bases through the pelvis. CONTRAST: Performed without Oral Contrast and with IV Contrast, patient injected with 100 mL of Isovue 300. FINDINGS: There is some mild atelectasis at the lung bases. Heart is enlarged. Liver shows no focal defect. Sto mach is intact. Spleen is intact. Kidneys show satisfactory contrast opacification. There is no hydro nephrosis. There is no evidence of pancreatic mass. There is pancreatic atrophy. There are bilateral renal cortical cysts up to 3 cm. Ureters are not dilated. There is no retroperitoneal adenopathy. The re is incarcerated umbilical hernia that contains small bowel. There are multiple distended loops of small bowel throughout the abdomen. The large bowel is not dilated. There are numerous diverticula in the sigmoid colon. There is no free air. There is no ascites. There is no mesenteric edema. Bladder distends smoothly. There is no inguinal hernia. Delayed images show little contrast excretion in the kidneys. There are spondylotic changes in the addison mbar spine. Bony pelvis is intact. There is arthritic changes in both hip joints. IMPRESSION: THERE IS DISTENDED SMALL BOWEL SUGGESTIVE OF PARTIAL MECHANICAL SMALL BOWEL OBSTRUCTION DUE TO INCARC ERATED UMBILICAL HERNIA. OBSTRUCTION APPEARS NEW COMPARED TO OLD EXAM. PATCHY ATELECTASIS AT THE LUNG BASES.
[2019-10-22] MEDS ORDERED: ONDANSETRON 4 MG/2 ML VIAL IVP PRN (06:37)
[2019-10-22] MEDS ORDERED: NALOXONE 0.4 MG/ML 1 ML VIAL IV PRN (06:37)
[2019-10-22] MEDS: HYDROmorphone 1 MG/ML 1 ML SYRINGE IVP PRN ×2 (07:22→10:26)
[2019-10-22] MEDS ORDERED: PHYTONADIONE 5 MG in SODIUM CHLORIDE 0.9% 50 ML IVPB STA (08:26)
[2019-10-22 08:56] LABS: Glucose,Whole Blood 145 mg/dL (75-99)
[2019-10-22] MEDS ORDERED: FAMOTIDINE 20 MG TAB PO SCH (09:00)
[2019-10-22] MEDS: SODIUM CHLORIDE 0.9% 1,000 ML IV SCH ×3 (09:25→20:44)
[2019-10-22 12:30] LABS: Glucose,Whole Blood 162 mg/dL (75-99)
--- NOTE | 2019-10-22 12:43 | P.GSCN ---
<Blanca eSn Yoel - Last Filed: 10/22/19 12:43> History of Present Illness Consult date: 10/22/19 Reason for Consult: Incarcerated umbilical hernia Requesting physician: Junior Bridges History of present illness: CHIEF COMPLAINT: Abdominal pain HISTORY OF PRESENT ILLNESS: 84 year old female who presented to the ER with a chief complaint of abdominal pain. Patient reports she has been having abdominal pain since Tuesday. She reports episodes of nausea and vomiting as well. She reports history of an umbilical hernia but denies previous problems or pain at the site of her hernia. She is passing flatus this morning. Patients daughter at the bedside and reports patient is scheduled to have IVC filter placed next week due to history of DVT and PE. She is currently prescribed Coumadin. PAST MEDICAL HISTORY: See list. PAST SURGICAL HISTORY: See list. SOCIAL HISTORY: No illicit drug use. REVIEW OF SYSTEMS: CONSTITUTIONAL: Denies fever or chills. HEENT: Denies blurred vision, vision changes, or eye pain. Denies hemoptysis CARDIOVASCULAR: Denies chest pain or pressure. RESPIRATORY: No shortness of breath. GASTROINTESTINAL: Refer to HPI for pertinent findings HEMATOLOGIC: Denies bleeding disorders. GENITOURINARY: Denies any blood in urine. SKIN: Denies pruitis. Denies rash. PHYSICAL EXAM: VITAL SIGNS: Reviewed. GENERAL: Well-developed in no acute distress. HEENT: No sclera icterus. Extraocular movements grossly intact. Moist buccal mucosa. Head is atraumatic, normocephalic. ABDOMEN: Obese. Soft. Nondistended. Umbilical hernia. Unable to fully reduce hernia. Hernia painful while attempting to reduce. NEUROLOGIC: Alert and oriented. Cranial nerves II through XII grossly intact. LABORATORY DATA: WBC 10.4. Hemoglobin 13.4. Platelet count 328. INR 2.1. Sodium 135. Potassium 4.7. Lactic acid 3.4. IMAGING: CT abdomen and pelvis: Distended small bowel suggestive of partial mechanical small bowel obstruction due to incarcerated umbilical hernia. ASSESSMENT: 1. Incarcerated umbilical hernia causing small bowel obstruction PLAN: NPO. Continue IV fluids. Vitamin K and FFP ordered per medicine. Repeat INR this afternoon. Patient to undergo repair of incarcerated umbilical hernia today with Dr. Hampton Nurse practitioner note has been reviewed by physician. Signing provider agrees with the documented findings, assessment, and plan of care. Past Medical History Past Medical History: Atrial Fibrillation, COPD, Diabetes Mellitus, Deep Vein Thrombosis (DVT), GERD/Reflux, Hyperlipidemia, Hypertension, Osteoarthritis (OA), Pneumonia, Pulmonary Embolus (PE), Renal Disease, Vascular Disorder Additional Past Medical History / Comment(s): Pt recently admitted to [facility] on 09/24/19 with a fall with L leg pain/Afib with RVR and COPD. Other hx: Since recent fall pt has had decreased strength and is ambulating minimally with a walker, NIDDM type II, neuropathy bilateral feet, DVT bilateral legs, PE L lung, spinal stenosis/chronic low back pain and is to have surgery soon at [facility], diverticulitis, R side adrenal mass-not being worked up per pt, anemia, chronic venous stasis bilateral lower legs/edematous and has had bilat eral cellulitis History of Any Multi-Drug Resistant Organisms: None Reported Past Surgical History: Breast Surgery, Cholecystectomy, Joint Replacement, Orthopedic Surgery Additional Past Surgical History / Comment(s): L total shoulder arthroplasty, bilateral total knee arthroplasties, L carpal tunnel release, vaginal cyst r emoved, L breast biopsy-benign, bilateral cataract removals/lens implants, L eye retinal detachment with surgery, colonoscopy about 10 yrs ago-normal per pt. Past Anesthesia/Blood Transfusion Reactions: No Reported Reaction Smoking Status: Never smoker - Past Family History Father Family Medical History: Deep Vein Thrombosis (DVT) Son(s) Family Medical History: Deep Vein Thrombosis (DVT) Mother Family Medical History: Cancer Additional Family Medical History / Comment(s): Mother had cancer in her back. Daughter(s) Family Medical History: Blood Disorder Additional Family Medical History / Comment(s): Daughter has MTHFR factor and pt's grandson has lyme factor V and grand daughter has MTHFR. Medications and Allergies Home Medications Medication Instructions Recorded Confirmed Type Metoprolol Tartrate [Lopressor] 50 mg PO BID 08/25/17 10/22/19 History Simvastatin [Zocor] 10 mg PO HS 08/25/17 10/22/19 History glipiZIDE [Glucotrol] 5 mg PO HS 08/25/17 10/22/19 History metFORMIN HCL [Glucophage] 1,000 mg PO AC-BID 08/25/17 10/22/19 History Furosemide [Lasix] 40 mg PO DAILY PRN 08/19/19 10/22/19 History Omeprazole [PriLOSEC] 20 mg PO DAILY 08/19/19 10/22/19 History Potassium Chloride [Klor-Con 20] 20 meq PO DAILY PRN 08/19/19 10/22/19 History amLODIPine [Norvasc] 2.5 mg PO DAILY 08/19/19 10/22/19 History Acetaminophen Tab [Tylenol] 650 mg PO Q6HR PRN tab 08/22/19 10/22/19 Rx guaiFENesin [Mucinex] 600 mg PO Q12HR PRN tablet.er 09/25/19 10/22/19 Rx HYDROcodone/APAP 5-325MG [[place] 1 tab PO Q4HR PRN 10/22/19 10/22/19 History 5-325] Warfarin Sodium [Coumadin] 1.25 mg PO DAILY@1800 10/22/19 10/22/19 History buPROPion HCL [Wellbutrin SR] 150 mg PO BID 10/22/19 10/22/19 History Allergies Allergy/AdvReac Type Severity Reaction Status Date / Time Penicillins Allergy Rash/Hives Verified 10/22/19 07:33 azithromycin AdvReac Dyspnea & Verified 10/22/19 07:33 nausea ciprofloxacin [From Cipro] AdvReac Dyspnea & Verified 10/22/19 07:33 nausea Surgical - Exam Vital Signs Temp Pulse Resp BP Pulse Ox 98.2 F 110 H 18 103/68 96 10/22/19 03:10 10/22/19 03:10 10/22/19 03:10 10/22/19 03:10 10/22/19 03:10 Results - Labs 10/22/19 03:35 10/22/19 03:35 Abnormal Lab Results - Last 24 Hours (Table) 10/22/19 10/22/19 10/22/19 Range/Units 03:35 03:35 03:35 RDW 16.4 H (11.5-15.5) % Neutrophils # 8.0 H (1.3-7.7) k/uL PT (9.0-12.0) sec INR (<1.2) APTT (22.0-30.0) sec Sodium 135 L (137-145) mmol/L Carbon Dioxide 19 L (22-30) mmol/L BUN 24 H (7-17) mg/dL Glucose 222 H (74-99) mg/dL POC Glucose (mg/dL) (75-99) mg/dL Plasma Lactic Acid Afshin 3.4 H* (0.7-2.0) mmol/L 10/22/19 10/22/19 10/22/19 Range/Units 03:35 08:44 12:28 RDW (11.5-15.5) % Neutrophils # (1.3-7.7) k/uL PT 21.0 H (9.0-12.0) sec INR 2.1 H (<1.2) APTT 33.3 H (22.0-30.0) sec Sodium (137-145) mmol/L Carbon Dioxide (22-30) mmol/L BUN (7-17) mg/dL Glucose (74-99) mg/dL POC Glucose (mg/dL) 145 H 162 H (75-99) mg/dL Plasma Lactic Acid Afshin (0.7-2.0) mmol/L Diabetes panel 10/22/19 Range/Units 03:35 Sodium 135 L (137-145) mmol/L Potassium 4.7 (3.5-5.1) mmol/L Chloride 102 (98-107) mmol/L Carbon Dioxide 19 L (22-30) mmol/L BUN 24 H (7-17) mg/dL Creatinine 0.85 (0.52-1.04) mg/dL Glucose 222 H (74-99) mg/dL Calcium 9.7 (8.4-10.2) mg/dL AST 19 (14-36) U/L ALT 19 (9-52) U/L Alkaline Phosphatase 96 (38-126) U/L Total Protein 7.0 (6.3-8.2) g/dL Albumin 3.7 (3.5-5.0) g/dL Calcium panel 10/22/19 Range/Units 03:35 Calcium 9.7 (8.4-10.2) mg/dL Albumin 3.7 (3.5-5.0) g/dL Pituitary panel 10/22/19 Range/Units 03:35 Sodium 135 L (137-145) mmol/L Potassium 4.7 (3.5-5.1) mmol/L Chloride 102 (98-107) mmol/L Carbon Dioxide 19 L (22-30) mmol/L BUN 24 H (7-17) mg/dL Creatinine 0.85 (0.52-1.04) mg/dL Glucose 222 H (74-99) mg/dL Calcium 9.7 (8.4-10.2) mg/dL Adrenal panel 10/22/19 Range/Units 03:35 Sodium 135 L (137-145) mmol/L Potassium 4.7 (3.5-5.1) mmol/L Chloride 102 (98-107) mmol/L Carbon Dioxide 19 L (22-30) mmol/L BUN 24 H (7-17) mg/dL Creatinine 0.85 (0.52-1.04) mg/dL Glucose 222 H (74-99) mg/dL Calcium 9.7 (8.4-10.2) mg/dL Total Bilirubin 0.7 (0.2-1.3) mg/dL AST 19 (14-36) U/L ALT 19 (9-52) U/L Alkaline Phosphatase 96 (38-126) U/L Total Protein 7.0 (6.3-8.2) g/dL Albumin 3.7 (3.5-5.0) g/dL <Mohamud Hampton - Last Filed: 10/22/19 16:21> History of Present Illness History of present illness: As above. Patient with incarcerated umbilical hernia and small bowel obstruction. Patient's Coumadin has been reversed. Discussions between primary service, vascular, and hematology led to the decision to hold off on IVC filter for now. We will still provide 40 mg Lovenox preoperatively for prophylaxis. We'll proceed with repair incarcerated umbilical hernia with possible small bowel resection if needed. Options of umbilicus to me discussed with the patient and her family and we have decided to likely proceed with removal of the bellybutton itself. Also discussed the options of mesh placement. Plan at this time is to avoid mesh placement given the slight increased risk of infection. Risks of bleeding, infection, recurrence, seroma, wound formation, respiratory and cardiac complications, aspiration, PE DVT were reviewed. They understand and wish to proceed. Surgical - Exam Vital Signs Temp Pulse Resp BP Pulse Ox 98.2 F 110 H 18 103/68 96 10/22/19 03:10 10/22/19 03:10 10/22/19 03:10 10/22/19 03:10 10/22/19 03:10 Results - Labs 10/22/19 03:35 10/22/19 03:35 Abnormal Lab Results - Last 24 Hours (Table) 10/22/19 10/22/19 10/22/19 Range/Units 03:35 03:35 03:35 RDW 16.4 H (11.5-15.5) % Neutrophils # 8.0 H (1.3-7.7) k/uL PT (9.0-12.0) sec INR (<1.2) APTT (22.0-30.0) sec Sodium 135 L (137-145) mmol/L Carbon Dioxide 19 L (22-30) mmol/L BUN 24 H (7-17) mg/dL Glucose 222 H (74-99) mg/dL POC Glucose (mg/dL) (75-99) mg/dL Plasma Lactic Acid Afshin 3.4 H* (0.7-2.0) mmol/L 10/22/19 10/22/19 10/22/19 Range/Units 03:35 08:44 12:28 RDW (11.5-15.5) % Neutrophils # (1.3-7.7) k/uL PT 21.0 H (9.0-12.0) sec INR 2.1 H (<1.2) APTT 33.3 H (22.0-30.0) sec Sodium (137-145) mmol/L Carbon Dioxide (22-30) mmol/L BUN (7-17) mg/dL Glucose (74-99) mg/dL POC Glucose (mg/dL) 145 H 162 H (75-99) mg/dL Plasma Lactic Acid Afshin (0.7-2.0) mmol/L 10/22/19 Range/Units 14:37 RDW (11.5-15.5) % Neutrophils # (1.3-7.7) k/uL PT 13.2 H (9.0-12.0) sec INR 1.3 H (<1.2) APTT (22.0-30.0) sec Sodium (137-145) mmol/L Carbon Dioxide (22-30) mmol/L BUN (7-17) mg/dL Glucose (74-99) mg/dL POC Glucose (mg/dL) (75-99) mg/dL Plasma Lactic Acid Afshin (0.7-2.0) mmol/L Diabetes panel 10/22/19 Range/Units 03:35 Sodium 135 L (137-145) mmol/L Potassium 4.7 (3.5-5.1) mmol/L Chloride 102 (98-107) mmol/L Carbon Dioxide 19 L (22-30) mmol/L BUN 24 H (7-17) mg/dL Creatinine 0.85 (0.52-1.04) mg/dL Glucose 222 H (74-99) mg/dL Calcium 9.7 (8.4-10.2) mg/dL AST 19 (14-36) U/L ALT 19 (9-52) U/L Alkaline Phosphatase 96 (38-126) U/L Total Protein 7.0 (6.3-8.2) g/dL Albumin 3.7 (3.5-5.0) g/dL Calcium panel 10/22/19 Range/Units 03:35 Calcium 9.7 (8.4-10.2) mg/dL Albumin 3.7 (3.5-5.0) g/dL Pituitary panel 10/22/19 Range/Units 03:35 Sodium 135 L (137-145) mmol/L Potassium 4.7 (3.5-5.1) mmol/L Chloride 102 (98-107) mmol/L Carbon Dioxide 19 L (22-30) mmol/L BUN 24 H (7-17) mg/dL Creatinine 0.85 (0.52-1.04) mg/dL Glucose 222 H (74-99) mg/dL Calcium 9.7 (8.4-10.2) mg/dL Adrenal panel 10/22/19 Range/Units 03:35 Sodium 135 L (137-145) mmol/L Potassium 4.7 (3.5-5.1) mmol/L Chloride 102 (98-107) mmol/L Carbon Dioxide 19 L (22-30) mmol/L BUN 24 H (7-17) mg/dL Creatinine 0.85 (0.52-1.04) mg/dL Glucose 222 H (74-99) mg/dL Calcium 9.7 (8.4-10.2) mg/dL Total Bilirubin 0.7 (0.2-1.3) mg/dL AST 19 (14-36) U/L ALT 19 (9-52) U/L Alkaline Phosphatase 96 (38-126) U/L Total Protein 7.0 (6.3-8.2) g/dL Albumin 3.7 (3.5-5.0) g/dL
--- NOTE | 2019-10-22 12:58 | P.HPIM ---
History of Present Illness H&P Date: 10/22/19 Chief Complaint: abdominal pain 84-year-old female patient of Dr. Liu, recently admitted fall and concern was for a left leg fracture which was ruled out. The patient was discharged to [facility]. 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 Patient presented due to abdominal pain that covered the entire abdomen that started on Tuesday evening. She described it as cramps and went around to her back. She took Tylenol without any improvement and tried cold pack and heat. She denies having any diarrhea but stools are looser than normal. She stated she had nausea and complained of vomiting but has been status it was more burping up versus true vo miting. No fever or chills. The pain continued to worsen and she came in this morning to [facility] emergency center for evaluation. CAT scan of the abdomen and pelvis with contrast revealed distended small bowel suggestive of partial mechanical small bowel obstruction due to incarcerated umbilical hernia. Obstruction appears new compared to old exam. Patchy atelectasis at the lung bases. CBC was unremarkable, CO2 19, creatinine 0.85, blood sugar 222, lactic acid 3.4, INR 2.1, troponin negative. Patient was [facility] floor and consult in place with Dr. Hampton with plan for surgical intervention. Due to elevated INR of 2.1, vitamin K and fresh frozen plasma were ordered. Daughter also states that patient was scheduled next week for a Malik filter by Dr. Askew as patient was post to have this done prior to her spinal stenosis surgery. Dr. Askew was contacted and he agreed to come over as soon as possible to evaluate the patient. In the meantime, Dr. Patricia was contacted with recommendations to proceed with abdominal surgery for bowel obstruction and start Lovenox following surgery and later make a final determination regarding implantation of Malik filter. Patient, her and daughter were all in agreement for this. Patient's daughter Bree is POA. Review of Systems All systems: negative Constitutional: Reports fatigue, Reports weakness, Denies anorexia, Denies chills, Denies fever, Denies poor appetite Eyes: denies blurred vision, denies pain Ears, nose, mouth and throat: Denies dysphagia, Denies headache, Denies nasal congestion, Denies nasal discharge, Denies sore throat, Denies vertigo Cardiovascular: Denies chest pain, Denies decreased exercise tolerance, Denies dyspnea on exertion, Denies lightheadedness, Denies shortness of breath, Denies syncope Respiratory: Denies cough, Denies cough with sputum, Denies dyspnea, Denies excessive sputum, Denies hemoptysis, Denies home oxygen, Denies respiratory infections, Denies wheezing Gastrointestinal: Reports abdominal pain, Reports bloating, Reports diarrhea, Reports loss of appetite, Reports nausea, Denies constipation, Denies vomiting Genitourinary: Denies dysuria, Denies hematuria, Denies urgency, Denies urinary frequency Musculoskeletal: Reports gait dysfunction, Reports muscle weakness, Denies myalgias Integumentary: Denies pruritus, Denies rash, Denies wounds Neurological: Reports gait dysfunction, Denies change in mentation, Denies change in speech, Denies numbness, Denies weakness Psychiatric: Denies anxiety, Denies depression Endocrine: Denies fatigue, Denies weight change Past Medical History Past Medical History: Diabetes Mellitus, Deep Vein Thrombosis (DVT), GERD/Reflux, Hyperlipidemia, Hypertension, Osteoarthritis (OA), Pneumonia, Pulmonary Embolus (PE), Renal Disease Additional Past Medical History / Comment(s): Hx of PE & DVT over 11 yrs ago. Morbid obesity, mass on right kidney, cellulitis BLE, fall at home, history of bilateral total knee replacements approximately [address] Augustin. History of spinal stenosis and is scheduled to have surgery at another facility in the near future History of Any Multi-Drug Resistant Organisms: None Reported Past Surgical History: Breast Surgery, Cholecystectomy, Joint Replacement, Orthopedic Surgery Additional Past Surgical History / Comment(s): thelma knee replac; L shoulder replac.; carpel tunnel vaginal duct cyst; benign breast surg; cataracts; retinal repair left eye Past Anesthesia/Blood Transfusion Reactions: No Reported Reaction Past Psychological History: No Psychological Hx Reported Smoking Status: Never smoker Past Alcohol Use History: None Reported Past Drug Use History: None Reported - Past Family History Father Family Medical History: Deep Vein Thrombosis (DVT) Son(s) Family Medical History: Deep Vein Thrombosis (DVT) Mother Family Medical History: Cancer Additional Family Medical History / Comment(s): Mother had cancer in her back. Daughter(s) Family Medical History: Blood Disorder Additional Family Medical History / Comment(s): Daughter has MTHFR factor and pt's grandson has lyme factor V and grand daughter has MTHFR. Medications and Allergies Home Medications Medication Instructions Recorded Confirmed Type Metoprolol Tartrate [Lopressor] 50 mg PO BID 08/25/17 10/22/19 History Simvastatin [Zocor] 10 mg PO HS 08/25/17 10/22/19 History glipiZIDE [Glucotrol] 5 mg PO HS 08/25/17 10/22/19 History metFORMIN HCL [Glucophage] 1,000 mg PO AC-BID 08/25/17 10/22/19 History Furosemide [Lasix] 40 mg PO DAILY PRN 08/19/19 10/22/19 History Omeprazole [PriLOSEC] 20 mg PO DAILY 08/19/19 10/22/19 History Potassium Chloride [Klor-Con 20] 20 meq PO DAILY PRN 08/19/19 10/22/19 History amLODIPine [Norvasc] 2.5 mg PO DAILY 08/19/19 10/22/19 History Acetaminophen Tab [Tylenol] 650 mg PO Q6HR PRN tab 08/22/19 10/22/19 Rx guaiFENesin [Mucinex] 600 mg PO Q12HR PRN tablet.er 09/25/19 10/22/19 Rx HYDROcodone/APAP 5-325MG [[place] 1 tab PO Q4HR PRN 10/22/19 10/22/19 History 5-325] Warfarin Sodium [Coumadin] 1.25 mg PO DAILY@1800 10/22/19 10/22/19 History buPROPion HCL [Wellbutrin SR] 150 mg PO BID 10/22/19 10/22/19 History Allergies Allergy/AdvReac Type Severity Reaction Status Date / Time Penicillins Allergy Rash/Hives Verified 10/22/19 07:33 azithromycin AdvReac Dyspnea & Verified 10/22/19 07:33 nausea ciprofloxacin [From Cipro] AdvReac Dyspnea & Verified 10/22/19 07:33 nausea Physical Exam Vitals: Vital Signs Temp Pulse Pulse Resp BP BP Pulse Ox 10/22/19 09:42 98.1 F 60 16 92/61 10/22/19 09:28 98.0 F 91 16 99/63 10/22/19 09:04 78 92/60 10/22/19 08:22 97.5 F L 87 18 86/55 95 10/22/19 07:25 76 18 94/47 98 10/22/19 05:26 98.2 F 70 14 98/53 98 10/22/19 04:03 96 16 101/64 95 10/22/19 03:10 98.2 F 110 H 18 103/68 96 Intake and Output 10/21/19 10/22/19 10/22/19 22:59 06:59 14:59 Other: Weight 131.088 kg Gen: This is an 84-year-old female. Patient is resting in bed and appears to be comfortable although she complains of pain. No grimacing noted. and daughter at bedside. HEENT: Head is atraumatic, normocephalic. Pupils equal, round. Sclerae is anicteric. NECK: Supple. No JVD. No lymphadenopathy. No thyromegaly. LUNGS: Clear to auscultation. No wheezes or rhonchi. No intercostal retractions. HEART: Regular rate and rhythm. No murmur. ABDOMEN: Soft. Bowel sounds are present. No masses. Mid abdominal tenderness or umbilical hernia, nonreducible. EXTREMITIES: No pedal edema. No calf tenderness. NEUROLOGICAL: Patient is awake, alert and oriented x3. Cranial nerves 2 through 12 are grossly intact. Results CBC & Chem 7: 10/22/19 03:35 10/22/19 03:35 Labs: Abnormal Lab Results - Last 24 Hours (Table) 10/22/19 10/22/19 10/22/19 Range/Units 03:35 03:35 03:35 RDW 16.4 H (11.5-15.5) % Neutrophils # 8.0 H (1.3-7.7) k/uL PT (9.0-12.0) sec INR (<1.2) APTT (22.0-30.0) sec Sodium 135 L (137-145) mmol/L Carbon Dioxide 19 L (22-30) mmol/L BUN 24 H (7-17) mg/dL Glucose 222 H (74-99) mg/dL POC Glucose (mg/dL) (75-99) mg/dL Plasma Lactic Acid Afshin 3.4 H* (0.7-2.0) mmol/L 10/22/19 10/22/19 Range/Units 03:35 08:44 RDW (11.5-15.5) % Neutrophils # (1.3-7.7) k/uL PT 21.0 H (9.0-12.0) sec INR 2.1 H (<1.2) APTT 33.3 H (22.0-30.0) sec Sodium (137-145) mmol/L Carbon Dioxide (22-30) mmol/L BUN (7-17) mg/dL Glucose (74-99) mg/dL POC Glucose (mg/dL) 145 H (75-99) mg/dL Plasma Lactic Acid Afshin (0.7-2.0) mmol/L Thrombosis Risk Factor Assmnt - DVT/VTE Prophylaxis DVT/VTE Prophylaxis: Pharmacologic Prophylaxis ordered Assessment and Plan Plan: 1. Small bowel obstruction secondary to umbilical hernia. Patient admitted to the [facility] floor, consult with Dr. Hampton with plan for surgical intervention later today. Continue Dilaudid for pain control, Zofran for nausea. Patient is been given vitamin K and fresh frozen plasma. 2. 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 Coumadin on hold. Consult with Dr. Askew regarding plan schedule for Gail filter. Consult with Dr. Patricia regarding anticoagulation versus filter placement. Current plan is to hold on Gail filter and following abdominal surgery, patient will be on Lovenox. 3. Acute lactic acidosis and hypovolemic hypotension secondary to bowel obstruction, lack of oral intake and loose stools. Patient is status post 1 L of IV fluids. Continue IV fluids at 150 mL per hour. 4. Paroxysmal atrial fibrillation. Continue metoprolol decreased dose of 25 mg twice daily with parameters. 4. Valvular heart disease of the aortic, mitral and tricuspid with aortic stenosis next field. 5. Hypertension. Hold Lasix, Norvasc. 6. Hyperlipidemia. Hold Zocor. 7. Diabetes mellitus type 2. Hold glipizide. Start NovoLog scale every 6 hours. 8. Spinal stenosis with plan for surgical intervention and an outside facility in the near future. Discussed need to postpone this for greater than 4 weeks. 9. Recurrent depression. Patient is normally on Wellbutrin SR 150 mg twice daily. 10. Coagulopathy secondary to Coumadin use. Patient is status post vitamin K and fresh frozen plasma. 11. Gastroesophageal reflux disease. Protonix IV. 12. DVT prophylaxis. Patient will be placed on Lovenox following surgery. Patient will be admitted to the hospital for a minimum of 2 night stay. Discharge plan: To be determined. Most likely patient will require subacute r ehab and has been recently at [facility]. Impression and plan of care have been directed as dictated by the signing physician. India Conway nurse practitioner acting as scribe for signing clint parker.
[2019-10-22] MEDS: PANTOPRAZOLE 40 MG/10 ML VIAL IVP SCH (13:14)
[2019-10-22] MEDS: INSULIN ASPART (NovoLOG) 100 UNIT/ML VIAL SQ SCH ×2 (13:15→20:17)
--- NOTE | 2019-10-22 13:56 | CONS ---
DATE OF CONSULTATION: 10/22/2019 This is an 84-year-old female. The patient is known to me from the office. I saw her 2 weeks ago, referred by a neurosurgeon because patient is going for back surgery. She has a longstanding history of DVT and PE in the past and they wanted me to put a filter prior to doing the back surgery. Patient came with abdominal pain and diagnosed with possible incarcerated umbilical hernia. Patient is going for surgery. Patient was seen by Dr. Patricia who recommended to proceed for surgery and the patient will be on Lovenox. MEDICAL HISTORY: History of atrial fibrillation, obesity, history of DVT and PE in the past. Patient was seen in her room, lying comfortably in bed. NECK: Supple, trachea central. CHEST: Clear. ABDOMEN: Soft, nontender. The patient has an umbilical hernia. VASCULAR: Examination, femorals are palpable. We did the venous study in my office. The patient reports femoral veins are patent. PLAN: Patient going for abdominal surgery. When patient is ready, prior to back surgery, we place a filter. Thank you, very much. Discussed with the family. Dr. Patricia and with Dr. Hampton. FAVIANL / JONASN: [id number] / [id number]
[2019-10-22 14:56] LABS: INR 1.3 (<1.2); Prothrombin Time 13.2 sec (9.0-12.0)
[2019-10-22] MEDS ORDERED: LACTATED RINGERS 1,000 ML IV ONE ×2 (15:31→16:58)
[2019-10-22] MEDS ORDERED: ceFAZolin 3 GM in SODIUM CHLORIDE 0.9% 100 ML IVPB ONE (16:12)
[2019-10-22] MEDS ORDERED: ENOXAPARIN 40 MG/0.4 ML SYRINGE SQ STA (16:12)
[2019-10-22] MEDS ORDERED: ROCURONIUM BROMIDE 10 MG/ML 10 ML VIAL IV ONE (16:21)
[2019-10-22] MEDS ORDERED: PROPOFOL 10 MG/ML 20 ML VIAL IV ONE (16:21)
[2019-10-22] MEDS ORDERED: MIDAZOLAM 2 MG/2 ML VIAL ONE (16:21)
[2019-10-22] MEDS ORDERED: PHENYLEPHRINE-0.9% NACL SYG 1 MG/10 ML SYRINGE ONE (16:21)
[2019-10-22] MEDS ORDERED: LIDOCAINE 1% INJ 10MG/ML (20 ML MDV) ONE (16:21)
[2019-10-22] MEDS ORDERED: SUCCINYLCHOLINE CHLORIDE 100 MG/5 ML SYR IV ONE (16:21)
[2019-10-22] MEDS ORDERED: GLYCOPYRROLATE 0.2 MG/ML 2 ML VIAL ONE (16:21)
[2019-10-22] MEDS ORDERED: fentaNYL (PF) 50 MCG/ML 2 ML AMP ONE (16:21)
[2019-10-22] MEDS ORDERED: NEOSTIGMINE 1 MG/ML 10 ML VIAL ONE (16:21)
--- NOTE | 2019-10-22 17:28 | P.CONS ---
History of Present Illness - Reason for Consult Consult date: 10/22/19 history of DVT/PE/hypercoagulable state, needing emergent surgery Requesting physician: India Conway - Chief Complaint abd pain - History of Present Illness Mrs. Brandt is a very pleasant 84-year-old female admitted with abdominal pain, subsequently diagnosed with mechanical bowel obstruction secondary to an incarcerated hernia. She is needing to have urgent surgery. 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 Patient has been on Coumadin ever since. Patient herself does not have a specific hypercoag diagnosis but, daughter has MTHFR, grand son and granddaughter both have factor V Leiden, patient's father and one of her sons has a history of blood clots. Patient denies any bleeding problems being on Coumadin all these years, there have been no recurrent blood clots. Patient denies any complaints other than being hungry, she is currently nothing by mouth for surgery. 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 Morbid obesity, mass on right kidney, cellulitis BLE, fall at home, history of bilateral total knee replacements approximately [address] Augustin. History of spinal stenosis and is scheduled to have surgery at another facility in the near future History of Any Multi-Drug Resistant Organisms: None Reported Past Surgical History: Breast Surgery, Cholecystectomy, Joint Replacement, Orthopedic Surgery Additional Past Surgical History / Comment(s): thelma knee replac; L shoulder replac.; carpel tunnel vaginal duct cyst; benign breast surg; cataracts; r etinal repair left eye Past Anesthesia/Blood Transfusion Reactions: No Reported Reaction Past Psychological History: No Psychological Hx Reported Smoking Status: Never smoker Past Alcohol Use History: None Reported Past Drug Use History: None Reported - Past Family History Father Family Medical History: Deep Vein Thrombosis (DVT) Son(s) Family Medical History: Deep Vein Thrombosis (DVT) Mother Family Medical History: Cancer Additional Family Medical History / Comment(s): Mother had cancer in her back. Daughter(s) Family Medical History: Blood Disorder Additional Family Medical History / Comment(s): Daughter has MTHFR factor and pt's grandson has lyme factor V and grand daughter has MTHFR. Medications and Allergies Home Medications Medication Instructions Recorded Confirmed Type Metoprolol Tartrate [Lopressor] 50 mg PO BID 08/25/17 10/22/19 History Simvastatin [Zocor] 10 mg PO HS 08/25/17 10/22/19 History glipiZIDE [Glucotrol] 5 mg PO HS 08/25/17 10/22/19 History metFORMIN HCL [Glucophage] 1,000 mg PO AC-BID 08/25/17 10/22/19 History Furosemide [Lasix] 40 mg PO DAILY PRN 08/19/19 10/22/19 History Omeprazole [PriLOSEC] 20 mg PO DAILY 08/19/19 10/22/19 History Potassium Chloride [Klor-Con 20] 20 meq PO DAILY PRN 08/19/19 10/22/19 History amLODIPine [Norvasc] 2.5 mg PO DAILY 08/19/19 10/22/19 History Acetaminophen Tab [Tylenol] 650 mg PO Q6HR PRN tab 08/22/19 10/22/19 Rx guaiFENesin [Mucinex] 600 mg PO Q12HR PRN tablet.er 09/25/19 10/22/19 Rx HYDROcodone/APAP 5-325MG [[place] 1 tab PO Q4HR PRN 10/22/19 10/22/19 History 5-325] Warfarin Sodium [Coumadin] 1.25 mg PO DAILY@1800 10/22/19 10/22/19 History buPROPion HCL [Wellbutrin SR] 150 mg PO BID 10/22/19 10/22/19 History Allergies Allergy/AdvReac Type Severity Reaction Status Date / Time Penicillins Allergy Rash/Hives Verified 10/22/19 07:33 azithromycin AdvReac Dyspnea & Verified 10/22/19 07:33 nausea ciprofloxacin [From Cipro] AdvReac Dyspnea & Verified 10/22/19 07:33 nausea Physical Exam Vitals: Vital Signs Temp Pulse Pulse Resp BP BP Pulse Ox 10/22/19 15:00 97.6 F 78 16 99/65 92 L 10/22/19 13:34 97.6 F 85 18 89/59 98 10/22/19 12:32 98.0 F 71 16 119/80 10/22/19 12:29 98.0 F 61 16 119/80 10/22/19 12:00 98.0 F 107 H 16 111/81 10/22/19 11:50 88 14 75/58 10/22/19 10:58 98 F 14 L 14 85/58 10/22/19 10:54 98.0 F 56 L 14 85/58 10/22/19 10:24 97.9 F 51 L 16 82/55 10/22/19 10:14 98.1 F 72 16 93/56 10/22/19 09:42 98.1 F 60 16 92/61 10/22/19 09:28 98.0 F 91 16 99/63 10/22/19 09:04 78 92/60 10/22/19 08:22 97.5 F L 87 18 86/55 95 10/22/19 07:25 76 18 94/47 98 10/22/19 05:26 98.2 F 70 14 98/53 98 10/22/19 04:03 96 16 101/64 95 10/22/19 03:10 98.2 F 110 H 18 103/68 96 Intake and Output 10/22/19 10/22/19 10/22/19 06:59 14:59 22:59 Intake Total 426 1000 Balance 426 1000 Intake: IV 1000 Blood Product 426 Ffp 24 Cp2d Unit 206 [id number] Ffp 24 Cp2d Unit 220 [id number] Other: Weight 131.088 kg 131.088 kg - Constitutional General appearance: cooperative, morbidly obese, no acute distress - EENT Eyes: anicteric sclerae, EOMI ENT: hearing grossly normal - Respiratory Respiratory: bilateral: CTA - Cardiovascular Rhythm: regular Heart sounds: normal: S1, S2 Abnormal Heart Sounds: no systolic murmur, no diastolic murmur, no rub, no S3 Gallop, no S4 Gallop, no click, no other leg Peripheral Edema: bilateral: Trace - Gastrointestinal lower abdominal hernia General gastrointestinal: no absent bowel sounds, no decreased bowel sounds, no distended, no hepatomegaly, no hyperactive bowel sounds, normal bowel sounds, no organomegaly, no rigid, no scaphoid, soft, no splenomegaly, no tenderness, no umbilical hernia, no ventral hernia - Integumentary Integumentary: normal - Neurologic Neurologic: CNII-XII intact - Musculoskeletal Musculoskeletal: generalized weakness - Psychiatric Psychiatric: A&O x's 3, appropriate affect, intact judgment & insight Results CBC & Chem 7: 10/22/19 03:35 10/22/19 03:35 Labs: Abnormal Lab Results - Last 24 Hours (Table) 10/22/19 10/22/19 10/22/19 Range/Units 03:35 03:35 03:35 RDW 16.4 H (11.5-15.5) % Neutrophils # 8.0 H (1.3-7.7) k/uL PT (9.0-12.0) sec INR (<1.2) APTT (22.0-30.0) sec Sodium 135 L (137-145) mmol/L Carbon Dioxide 19 L (22-30) mmol/L BUN 24 H (7-17) mg/dL Glucose 222 H (74-99) mg/dL POC Glucose (mg/dL) (75-99) mg/dL Plasma Lactic Acid Afshin 3.4 H* (0.7-2.0) mmol/L 10/22/19 10/22/19 10/22/19 Range/Units 03:35 08:44 12:28 RDW (11.5-15.5) % Neutrophils # (1.3-7.7) k/uL PT 21.0 H (9.0-12.0) sec INR 2.1 H (<1.2) APTT 33.3 H (22.0-30.0) sec Sodium (137-145) mmol/L Carbon Dioxide (22-30) mmol/L BUN (7-17) mg/dL Glucose (74-99) mg/dL POC Glucose (mg/dL) 145 H 162 H (75-99) mg/dL Plasma Lactic Acid Afshin (0.7-2.0) mmol/L 10/22/19 Range/Units 14:37 RDW (11.5-15.5) % Neutrophils # (1.3-7.7) k/uL PT 13.2 H (9.0-12.0) sec INR 1.3 H (<1.2) APTT (22.0-30.0) sec Sodium (137-145) mmol/L Carbon Dioxide (22-30) mmol/L BUN (7-17) mg/dL Glucose (74-99) mg/dL POC Glucose (mg/dL) (75-99) mg/dL Plasma Lactic Acid Afshin (0.7-2.0) mmol/L CT scan - abdomen: report reviewed CT scan - pelvis: report reviewed Assessment and Plan (1) Hypercoagulable state Narrative/Plan: Despite patient having no specific diagnosis herself, there are numerous family members with hypercoagulable conditions-diagnosed and undiagnosed so, lifelong anticoagulation in this patient is certainly reasonable. Dr. Patricia discussed the case with Surgeon as well as Vascular. Recommendation at this time is to reverse patient's INR, proceed with surgery, post op, once hemostasis achieved, initiate low molecular weight heparin/heparin drip and continue until INR is therapeutic. In regards to filter placement for back surgery, recommendation is to have the back Surgeon discuss the case directly with Meteorology Teacher to discuss guidelines for mgmt of pt with hypercoaguable state. Current Visit: Yes Status: Chronic Priority: High Code(s): D68.59 - OTHER PRIMARY THROMBOPHILIA SNOMED Code(s): 32344634
[2019-10-22] MEDS ORDERED: INSULIN ASPART (NovoLOG) 100 UNIT/ML VIAL SQ SCH (17:30)
--- NOTE | 2019-10-22 17:42 | P.OP ---
Date of Procedure: 10/22/19 Procedure(s) Performed: PREOPERATIVE DIAGNOSIS: Incarcerated umbilical hernia with small bowel obstruction POSTOPERATIVE DIAGNOSIS: Same PROCEDURE: Repair incarcerated umbilical hernia, partial omentectomy, umbilectomy SURGEON: Berta EBL: Minimal ANESTHESIA: General COMPLICATIONS: None OPERATIVE PROCEDURE: The patient was placed in the operating table in the supine position. A periumbilical incision was made using the scalpel encompassing the umbilicus in a vertical fashion. The subcutaneous tissues were dissected using blunt dissection and electrocautery. The patient's hernia sac was easily dissected away from the surrounding fat. The hernia sac was carried down to its connection to the fascia. The hernia sac and umbilicus was excised at that time using electrocautery. The diameter of the fascial defect was approximately 4 cm x 3 cm. There was no small bowel present within the hernia at this time. There was omentum that was adherent to the hernia sac which required dissection using ultra cautery. A portion of the omentum could not be reduced given its large size back into the perineal cavity. For that reason a portion of the omentum was excised using interrupted 2-0 silk sutures. The patient's small bowel was inspected through our small defect. The bowel appeared distended throughout. The CAT scan was reviewed intraoperatively and did show that the site area of small bowel present within the hernia sac appeared to be just at the terminal ileum. Some serous fluid within the perineal cavity was evacuated. I was able to grab a portion of the small bowel that was immediately beneath the fascial opening and inspect this by bringing it through the defect. There appear to be some mild induration and we suspect this was the transition point. The defect was then closed horizontally using interrupted vest over pants mattress sutures which were 0 Ethibond. The folding edge was sutured down using 0 Ethibond sutures as well. A drain was placed anterior to the fascial closure exiting laterally to the right. This was sutured to the skin using a 3-0 silk stitch. The subcutaneous tissues were reapproximated using inverted 3-0 Vicryl sutures. The skin was closed using omar. Sterile dressings were then applied. DISPOSITION: Stable to recovery room
[2019-10-22 18:12] LABS: Glucose,Whole Blood 122 mg/dL (75-99)
[2019-10-22 19:55] LABS: Appearance,Urine Cloudy (Clear); Bilirubin,Urine Negative (Negative); Blood,Urine Negative (Negative); Calcium Oxalate Crystals,Urine Occasional /hpf; Color,Urine Yellow; Glucose,Urine (UA) Negative (Negative); Ketones,Urine Negative (Negative); Leukocyte Esterase,Urine Negative (Negative); Mucus,Urine Rare /hpf; Nitrite,Urine Negative (Negative); PH, Urine 5.5 (5.0-8.0); Protein,Urine 1+ (Negative); RBC,Urine 7 /hpf (0-5); Squamous Epithelial Cell,Urine 3 /hpf (0-4); Urobilinogen,Urine <2.0 mg/dL (<2.0); WBC,Urine 2 /hpf (0-5)
[2019-10-22 20:09] LABS: Specific Gravity,Urine >1.050 (1.001-1.035)
[2019-10-22] MEDS: METOPROLOL TARTRATE 25 MG TAB PO SCH (22:02)
[2019-10-22 23:58] LABS: Glucose,Whole Blood 130 mg/dL (75-99)
[2019-10-23] MEDS: INSULIN ASPART (NovoLOG) 100 UNIT/ML VIAL SQ SCH ×4 (00:04→17:28)
[2019-10-23] MEDS: SODIUM CHLORIDE 0.9% 1,000 ML IV SCH ×4 (02:59→23:58)
[2019-10-23 05:56] LABS: Glucose,Whole Blood 139 mg/dL (75-99)
[2019-10-23] MEDS ORDERED: ACETAMINOPHEN IV (For NPO) 1,000 MG in EMPTY BAG 1 BAG IVPB ONE (06:15)
[2019-10-23] MEDS: ENOXAPARIN 40 MG/0.4 ML SYRINGE SQ SCH ×2 (08:14→20:49)
[2019-10-23] MEDS: PANTOPRAZOLE 40 MG/10 ML VIAL IVP SCH (08:15)
[2019-10-23] MEDS: METOPROLOL TARTRATE 25 MG TAB PO SCH ×3 (08:25→20:49)
[2019-10-23 11:50] LABS: Glucose,Whole Blood 149 mg/dL (75-99)
[2019-10-23] MEDS: HYDROmorphone 0.5 MG/0.5 ML SYRINGE IVP PRN ×2 (13:12→20:49)
--- NOTE | 2019-10-23 13:43 | P.PN ---
<Blanca Sen Yoel - Last Filed: 10/23/19 13:40> Subjective Progress Note Date: 10/23/19 CHIEF COMPLAINT: Abdominal pain HISTORY OF PRESENT ILLNESS: Patient is status post repair of incarcerated umbilical hernia, partial omentectomy, and umbilectomy. POD #1. She is sitting up in the chair. She reports her pain is tolerable. Currently rating 5/10. She denies passing flatus. Denies nausea or vomiting. Blood pressure is borderline low this morning. Temperature 100.4. accidentally stepped on patients FRACISCO drain and tubing broke in half near the bulb. PHYSICAL EXAM: VITAL SIGNS: Reviewed. GENERAL: Well-developed in no acute distress. HEENT: No sclera icterus. Extraocular movements grossly intact. Moist buccal mucosa. Head is atraumatic, normocephalic. ABDOMEN: Obese. Soft. Nondistended. Dressing clean dry intact. Abdominal binder noted. NEUROLOGIC: Alert and oriented. Cranial nerves II through XII grossly intact. ASSESSMENT: 1. Incarcerated umbilical hernia PLAN: NPO. Okay for ice chips Continue hernandez catheter today for I&O. Monitor BP. Hold BP medications today. Continue IV fluids Discontinue FRACISCO drain Obtain incentive spirometer Activity as tolerated Pain control Nurse practitioner note has been reviewed by physician. Signing provider agrees with the documented findings, assessment, and plan of care. Objective - Vital Signs Vital signs: Vital Signs Temp 100.4 F H 10/23/19 06:04 Pulse 99 10/23/19 06:04 Resp 18 10/23/19 08:00 BP 89/51 10/23/19 06:04 Pulse Ox 97 10/23/19 06:04 Intake & Output 10/22/19 10/23/19 10/23/19 18:59 06:59 18:59 Intake Total 2176 Output Total 180 575 5 Balance 1995 Weight 131.088 kg Intake: IV 1750 Blood Product 426 Ffp 24 Cp2d Unit 206 [id number] Ffp 24 Cp2d Unit 220 [id number] Output: Drainage 25 5 Right Lower Abdomen 25 5 Urine 150 550 Estimated Blood Loss 30 Other: Voiding Method Indwelling Catheter Indwelling Catheter - Labs CBC & Chem 7: 10/22/19 03:35 10/22/19 03:35 Labs: Abnormal Lab Results - Last 24 Hours (Table) 10/22/19 10/22/19 10/22/19 Range/Units 14:37 15:00 18:10 PT 13.2 H (9.0-12.0) sec INR 1.3 H (<1.2) POC Glucose (mg/dL) 122 H (75-99) mg/dL Urine Appearance Cloudy H (Clear) Ur Specific [place] >1.050 H (1.001-1.035) Urine Protein 1+ H (Negative) Urine RBC 7 H (0-5) /hpf Calcium Oxalate Crystal Occasional H (None) /hpf Urine Mucus Rare H (None) /hpf 10/22/19 10/23/19 10/23/19 Range/Units 23:57 05:54 11:45 PT (9.0-12.0) sec INR (<1.2) POC Glucose (mg/dL) 130 H 139 H 149 H (75-99) mg/dL Urine Appearance (Clear) Ur Specific [place] (1.001-1.035) Urine Protein (Negative) Urine RBC (0-5) /hpf Calcium Oxalate Crystal (None) /hpf Urine Mucus (None) /hpf <Mohamud Hampton - Last Filed: 10/23/19 17:27> Subjective As above. Patient says her pain is improved from preop. Denies nausea or vomiting. No flatus or bowel movement however. T-max 100.4. FRACISCO drain was removed after the catheter was traumatized. Will remove Hernandez catheter tomorrow. Keep nothing by mouth until abdominal discomfort improved further or bowel function confirmed. Objective - Vital Signs Vital signs: Vital Signs Temp 98.0 F 10/23/19 13:56 Pulse 64 10/23/19 13:56 Resp 18 10/23/19 13:56 BP 109/71 10/23/19 13:56 Pulse Ox 96 10/23/19 13:56 Intake & Output 10/22/19 10/23/19 10/23/19 18:59 06:59 18:59 Intake Total 2176 Output Total 180 575 305 Balance 1995 Weight 131.088 kg 131.088 kg Intake: IV 1750 Blood Product 426 Ffp 24 Cp2d Unit 206 [id number] Ffp 24 Cp2d Unit 220 [id number] Output: Drainage 25 5 Right Lower Abdomen 25 5 Urine 150 550 300 Estimated Blood Loss 30 Other: Voiding Method Indwelling Catheter Indwelling Catheter - Labs CBC & Chem 7: 10/22/19 03:35 10/22/19 03:35 Labs: Abnormal Lab Results - Last 24 Hours (Table) 10/22/19 10/22/19 10/22/19 Range/Units 15:00 18:10 23:57 POC Glucose (mg/dL) 122 H 130 H (75-99) mg/dL Urine Appearance Cloudy H (Clear) Ur Specific [place] >1.050 H (1.001-1.035) Urine Protein 1+ H (Negative) Urine RBC 7 H (0-5) /hpf Calcium Oxalate Crystal Occasional H (None) /hpf Urine Mucus Rare H (None) /hpf 10/23/19 10/23/19 10/23/19 Range/Units 05:54 11:45 16:52 POC Glucose (mg/dL) 139 H 149 H 117 H (75-99) mg/dL Urine Appearance (Clear) Ur Specific [place] (1.001-1.035) Urine Protein (Negative) Urine RBC (0-5) /hpf Calcium Oxalate Crystal (None) /hpf Urine Mucus (None) /hpf
[2019-10-23 13:44] VITALS: BMI 46.6
--- NOTE | 2019-10-23 14:51 | P.PN ---
Subjective Progress Note Date: 10/23/19 84-year-old female patient of Dr. Liu, recently admitted fall and concern was for a left leg fracture which was ruled out. The patient was discharged to [facility]. 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 Patient presented due to abdominal pain that covered the entire abdomen that started on Tuesday evening. She described it as cramps and went around to her back. She took Tylenol without any improvement and tried cold pack and heat. She denies having any diarrhea but stools are looser than normal. She stated she had nausea and complained of vomiting but has been status it was more burping up versus true vomiting. No fever or chills. The pain continued to worsen and she came in this morning to [facility] emergency center for evaluation. CAT scan of the abdomen and pelvis with contrast revealed distended small bowel suggestive of partial mechanical small bowel obstruction due to incarcerated umbilical hernia. Obstruction appears new compared to old exam. Patchy atelectasis at the lung bases. CBC was unremarkable, CO2 19, creatinine 0.85, blood sugar 222, lactic acid 3.4, INR 2.1, troponin negative. Patient was admitted to the [facility] floor and consult in place with Dr. Hampton with plan for surgical intervention. Due to elevated INR of 2.1, vitamin K and fresh frozen plasma were ordered. Daughter also states that patient was scheduled next week for a Malik filter by Dr. Askew as patient was post to have this done prior to her spinal stenosis surgery. Dr. Askew was contacted and he agreed to come over as soon as possible to evaluate the patient. In the meantime, Dr. Patricia was contacted with recommendations to proceed with abdominal surgery for bowel obstruction and start Lovenox following surgery and later make a final determination regarding implantation of [place] filter. Patient, her and daughter were all in agreement for this. Patient's daughter Bree is POA. 10/23: Yesterday, the patient underwent repair of incarcerated umbilical hernia, partial omentectomy, umbilical to me with Dr. Hampton. Patient is postop day #1. She states she is still having some abdominal discomfort. FRACISCO drain in place. Temperature max 100.4, blood pressure 89/51, heart rate 99, pulse ox 97% on 3 L nasal cannula. Patient remains nothing by mouth and IV fluids at 150 mL per hour. Patient has been started on Lovenox 40 mg subcu every 12 hours. Blood sugars are running between 12/21/1946. Review of Systems Constitutional: Reports fatigue, Reports weakness, Denies anorexia, Denies chills, Denies fever, Denies poor appetite Eyes: denies blurred vision, denies pain Ears, nose, mouth and throat: Denies dysphagia, Denies headache, Denies nasal congestion, Denies nasal discharge, Denies sore throat, Denies vertigo Cardiovascular: Denies chest pain, Denies decreased exercise tolerance, Denies dyspnea on exertion, Denies lightheadedness, Denies shortness of breath, Denies syncope Respiratory: Denies cough, Denies cough with sputum, Denies dyspnea, Denies excessive sputum, Denies hemoptysis, Denies home oxygen, Denies respiratory infections, Denies wheezing Gastrointestinal: Reports abdominal pain, Reports bloating, denies diarrhea, Reports loss of appetite, denies nausea, Denies constipation, Denies vomiting Genitourinary: Denies dysuria, Denies hematuria, Denies urgency, Denies urinary frequency Musculoskeletal: Reports gait dysfunction, Reports muscle weakness, Denies myalgias Integumentary: Denies pruritus, Denies rash, Denies wounds Neurological: Reports gait dysfunction, Denies change in mentation, Denies change in speech, Denies numbness, Denies weakness Psychiatric: Denies anxiety, Denies depression Endocrine: Denies fatigue, Denies weight change Objective - Vital Signs Vital signs: Vital Signs Temp 100.4 F H 10/23/19 06:04 Pulse 99 10/23/19 06:04 Resp 18 10/23/19 06:04 BP 89/51 10/23/19 06:04 Pulse Ox 97 10/23/19 06:04 Intake & Output 10/22/19 10/23/19 10/23/19 18:59 06:59 18:59 Intake Total 2176 Output Total 180 575 Balance 1995 Weight 131.088 kg Intake: IV 1750 Blood Product 426 Ffp 24 Cp2d Unit 206 [id number] Ffp 24 Cp2d Unit 220 [id number] Output: Drainage 25 Right Lower Abdomen 25 Urine 150 550 Estimated Blood Loss 30 Other: Voiding Method Indwelling Catheter - Exam Gen: This is an 84-year-old female. Patient is resting in bed and appears to be comfortable although she complains of pain. No grimacing noted. and daughter at bedside. HEENT: Head is atraumatic, normocephalic. Pupils equal, round. Sclerae is anicteric. NECK: Supple. No JVD. No lymphadenopathy. No thyromegaly. LUNGS: Clear to auscultation. No wheezes or rhonchi. No intercostal retractions. HEART: Regular rate and rhythm. No murmur. ABDOMEN: Soft. Bowel sounds are present. No masses. Mild generalized abdominal tenderness. Small dressing in place with no breakthrough bleeding. FRACISCO drain with serosanguineous drainage. Guajardo catheter placed draining [place]umb[place] urine. EXTREMITIES: No pedal edema. No calf tenderness. NEUROLOGICAL: Patient is awake, alert and oriented x3. Cranial nerves 2 through 12 are grossly intact. - Labs CBC & Chem 7: 10/22/19 03:35 10/22/19 03:35 Labs: Abnormal Lab Results - Last 24 Hours (Table) 10/22/19 10/22/19 10/22/19 Range/Units 12:28 14:37 15:00 PT 13.2 H (9.0-12.0) sec INR 1.3 H (<1.2) POC Glucose (mg/dL) 162 H (75-99) mg/dL Urine Appearance Cloudy H (Clear) Ur Specific [place] >1.050 H (1.001-1.035) Urine Protein 1+ H (Negative) Urine RBC 7 H (0-5) /hpf Calcium Oxalate Crystal Occasional H (None) /hpf Urine Mucus Rare H (None) /hpf 10/22/19 10/22/19 10/23/19 Range/Units 18:10 23:57 05:54 PT (9.0-12.0) sec INR (<1.2) POC Glucose (mg/dL) 122 H 130 H 139 H (75-99) mg/dL Urine Appearance (Clear) Ur Specific [place] (1.001-1.035) Urine Protein (Negative) Urine RBC (0-5) /hpf Calcium Oxalate Crystal (None) /hpf Urine Mucus (None) /hpf Assessment and Plan Plan: 1. Small bowel obstruction secondary to incarcerated umbilical hernia status post repair, postop day #1. Patient is nothing by mouth Continue Dilaudid for pain control, Zofran for nausea. 2. 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 Coumadin on hold. Consult with Dr. Askew regarding plan schedule for [place] filter. Consult with Dr. Patricia regarding anticoagulation versus filter placement. Current plan is to hold on [place] filter and following abdominal surgery, patient has been started on Lovenox. 3. Acute lactic acidosis and hypovolemic hypotension secondary to bowel obstruction, lack of oral intake and loose stools. Patient is status post 1 L of IV fluids. Continue IV fluids at 150 mL per hour. 4. Paroxysmal atrial fibrillation. Continue metoprolol decreased dose of 25 mg twice daily with parameters. 4. Valvular heart disease of the aortic, mitral and tricuspid with aortic stenosis next field. 5. Hypertension. Hold Lasix, Norvasc. 6. Hyperlipidemia. Hold Zocor. 7. Diabetes mellitus type 2. Hold glipizide. Start NovoLog scale every 6 hours. 8. Spinal stenosis with plan for surgical intervention and an outside facility in the near future. Discussed need to postpone this for greater than 4 weeks. 9. Recurrent depression. Patient is normally on Wellbutrin SR 150 mg twice daily. 10. Coagulopathy secondary to Coumadin use. Patient is status post vitamin K and fresh frozen plasma. 11. Gastroesophageal reflux disease. Protonix IV. 12. DVT prophylaxis. Lovenox. CODE STATUS: Full code Discharge plan: To be determined. Most likely patient will require subacute rehab and has been recently at [facility]. Impression and plan of care have been directed as dictated by the signing physician. India Conway nurse practitioner acting as scribe for signing physician.
[2019-10-23 16:54] LABS: Glucose,Whole Blood 117 mg/dL (75-99)
[2019-10-24 00:03] LABS: Glucose,Whole Blood 100 mg/dL (75-99)
[2019-10-24] MEDS: INSULIN ASPART (NovoLOG) 100 UNIT/ML VIAL SQ SCH ×4 (00:06→17:11)
[2019-10-24] MEDS: SODIUM CHLORIDE 0.9% 1,000 ML IV SCH ×2 (06:23→10:40)
[2019-10-24 06:29] LABS: Glucose,Whole Blood 113 mg/dL (75-99)
[2019-10-24] MEDS: ENOXAPARIN 40 MG/0.4 ML SYRINGE SQ SCH ×2 (07:50→21:34)
[2019-10-24] MEDS: PANTOPRAZOLE 40 MG/10 ML VIAL IVP SCH (07:50)
[2019-10-24] MEDS: METOPROLOL TARTRATE 25 MG TAB PO SCH (07:50)
--- NOTE | 2019-10-24 09:34 | P.PN ---
Subjective Progress Note Date: 10/24/19 Principal diagnosis: Incarcerated umbilical hernia Patient says her pain today is improved. She feels rumbling in her stomach. She is hungry. No flatus. No bowel movement. Denies nausea or vomiting. T- max 100.2. Morning labs pending. Objective - Vital Signs Vital signs: Vital Signs Temp 100.2 F H 10/24/19 04:40 Pulse 66 10/24/19 07:35 Resp 20 10/24/19 04:40 BP 98/66 10/24/19 07:35 Pulse Ox 100 10/24/19 07:35 Intake & Output 10/23/19 10/24/19 10/24/19 18:59 06:59 18:59 Intake Total 0 Output Total 305 900 Balance -305 -900 Weight 131.088 kg Intake: Oral 0 Output: Drainage 5 Right Lower Abdomen 5 Urine 300 900 Uretheral (Guajardo) 450 Other: Voiding Method Indwelling Catheter Indwelling Catheter - Exam Abdomen: Soft, mild incisional tenderness, dressing clean and dry, no bleeding from FRACISCO site. - Labs CBC & Chem 7: 10/22/19 03:35 10/22/19 03:35 Labs: Abnormal Lab Results - Last 24 Hours (Table) 10/23/19 10/23/19 10/24/19 Range/Units 11:45 16:52 00:01 POC Glucose (mg/dL) 149 H 117 H 100 H (75-99) mg/dL 10/24/19 Range/Units 06:18 POC Glucose (mg/dL) 113 H (75-99) mg/dL Assessment and Plan (1) Umbilical hernia Narrative/Plan: Patient progressing fairly well. May resume anticoagulation at this time. Increase activity as tolerated. Begin clear liquid diet. Current Visit: Yes Status: Acute Code(s): K42.9 - UMBILICAL HERNIA WITHOUT OBSTRUCTION OR GANGRENE SNOMED Code(s): 173114292
[2019-10-24] MEDS ORDERED: METOPROLOL TARTRATE 25 MG TAB PO STA (10:11)
[2019-10-24 11:25] LABS: Glucose,Whole Blood 143 mg/dL (75-99)
[2019-10-24 11:43] LABS: Anisocytosis Slight; HCT 32.4 % (34.0-46.0); Hypochromasia Marked; MCHC 31.5 g/dL (31.0-37.0); MCV 82.7 fL (80.0-100.0); Mean Platelet Volume 7.4; Platelet Count 219 k/uL (150-450); RBC 3.91 m/uL (3.80-5.40); RDW 16.6 % (11.5-15.5); WBC 4.5 k/uL (3.8-10.6)
[2019-10-24 11:45] LABS: Prothrombin Time 10.3 sec (9.0-12.0)
[2019-10-24 11:47] LABS: HGB 10.2 gm/dL (11.4-16.0)
[2019-10-24 12:00] LABS: ALT 13 U/L (9-52); AST 19 U/L (14-36); African American GFR (CKD) >90 (>60 ml/min/1.73 sqM); Albumin 2.6 g/dL (3.5-5.0); Alkaline Phosphatase 69 U/L (38-126); Anion Gap 6 mmol/L; Blood Urea Nitrogen 22 mg/dL (7-17); Calcium 8.3 mg/dL (8.4-10.2); Carbon Dioxide 24 mmol/L (22-30); Chloride 110 mmol/L (98-107); Glucose 148 mg/dL (74-99); Non-African American GFR(CKD) 83 (>60 ml/min/1.73 sqM); Potassium 3.9 mmol/L (3.5-5.1); Sodium 140 mmol/L (137-145); Total Bilirubin 0.5 mg/dL (0.2-1.3); Total Protein 5.3 g/dL (6.3-8.2)
--- NOTE | 2019-10-24 15:55 | P.PN ---
Subjective Progress Note Date: 10/24/19 84-year-old female patient of Dr. Liu, recently admitted fall and concern was for a left leg fracture which was ruled out. The patient was discharged to [facility]. 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 Patient presented due to abdominal pain that covered the entire abdomen that started on Tuesday evening. She described it as cramps and went around to her back. She took Tylenol without any improvement and tried cold pack and heat. She denies having any diarrhea but stools are looser than normal. She stated she had nausea and complained of vomiting but has been status it was more burping up versus true vomiting. No fever or chills. The pain continued to worsen and she came in this morning to [facility] emergency center for evaluation. CAT scan of the abdomen and pelvis with contrast revealed distended small bowel suggestive of partial mechanical small bowel obstruction due to incarcerated umbilical hernia. Obstruction appears new compared to old exam. Patchy atelectasis at the lung bases. CBC was unremarkable, CO2 19, creatinine 0.85, blood sugar 222, lactic acid 3.4, INR 2.1, troponin negative. Patient was admitted to the [facility] floor and consult in place with Dr. Hampton with plan for surgical intervention. Due to elevated INR of 2.1, vitamin K and fresh frozen plasma were ordered. Daughter also states that patient was scheduled next week for a [place] filter by Dr. Askew as patient was post to have this done prior to her spinal stenosis surgery. Dr. Askew was contacted and he agreed to come over as soon as possible to evaluate the patient. In the meantime, Dr. Patricia was contacted with recommendations to proceed with abdominal surgery for bowel obstruction and start Lovenox following surgery and later make a final determination regarding implantation of Malik filter. Patient, her and daughter were all in agreement for this. Patient's daughter Bree is POA. 10/23: Yesterday, the patient underwent repair of incarcerated umbilical hernia, partial omentectomy, umbilical to me with Dr. Hampton. Patient is postop day #1. She states she is still having some abdominal discomfort. FRACISCO drain in place. Temperature max 100.4, blood pressure 89/51, heart rate 99, pulse ox 97% on 3 L nasal cannula. Patient remains nothing by mouth and IV fluids at 150 mL per hour. Patient has been started on Lovenox 40 mg subcu every 12 hours. Blood sugars are running between 12/21/1946. 10/24: This morning, patient's heart rate has been labile running up to 120 and then back down to 66. She is currently on Lopressor 25 mg twice daily and she has been on Lovenox as well. EKG was done which revealed A. fib with RVR. Lopressor will be increased back to her home dose of 50 mg twice daily. Temperature max 100.2, blood pressure remains low at 90/66, pulse ox 100% on 2 L nasal cannula. Patient is currently nothing by mouth except for ice chips and medications and has been advanced to clear liquids today. Patient does state that she is hungry. She is complaining of left ankle pain which is chronic and will ask orthopedic surgery to evaluate. [facility] past. Repeat lab work reveals hemoglobin 10.2, creatinine 0.66, blood sugars running between 113 and 148. Patient has been evaluated by PT and OT with recommendations for subacute rehab. Patient has been at both [facility] and [facility] and seems undecided which should go to. She does have a granddaughter who works at [employer]. Social work updated and will contact BRISEIDA, daughter Bree. She will be resumed on Coumadin at 2 mg tonight and continue Lovenox until INR is therapeutic. Review of Systems Constitutional: Reports fatigue, Reports weakness, Denies anorexia, Denies chills, Denies fever, Denies poor appetite Ears, nose, mouth and throat: Denies dysphagia, Denies headache, Denies nasal congestion, Denies nasal discharge, Denies sore throat, Denies vertigo Cardiovascular: Denies chest pain, Denies decreased exercise tolerance, Denies dyspnea on exertion, Denies lightheadedness, Denies shortness of breath, Denies syncope Respiratory: Denies cough, Denies cough with sputum, Denies dyspnea, Denies excessive sputum, Denies hemoptysis, Denies home oxygen, Denies respiratory i nfections, Denies wheezing Gastrointestinal: Reports abdominal discomfort, denies bloating, denies diarrhea, denies loss of appetite, denies nausea, Denies constipation, Denies vomiting Genitourinary: Denies dysuria, Denies hematuria, Denies urgency, Denies urinary frequency Musculoskeletal: Reports gait dysfunction, Reports muscle weakness, Denies myalgias Integumentary: Denies pruritus, Denies rash, Denies wounds Neurological: Reports gait dysfunction, Denies change in mentation, Denies change in speech, Denies numbness, Denies weakness Psychiatric: Denies anxiety, Denies depression Endocrine: Denies fatigue, Denies weight change Objective - Vital Signs Vital signs: Vital Signs Temp 100.2 F H 10/24/19 04:40 Pulse 66 10/24/19 07:35 Resp 20 10/24/19 04:40 BP 98/66 10/24/19 07:35 Pulse Ox 100 10/24/19 07:35 Intake & Output 10/23/19 10/24/19 10/24/19 18:59 06:59 18:59 Intake Total 0 Output Total 305 900 Balance -305 -900 Weight 131.088 kg Intake: Oral 0 Output: Drainage 5 Right Lower Abdomen 5 Urine 300 900 Uretheral (Guajardo) 450 Other: Voiding Method Indwelling Catheter Indwelling Catheter - Exam Gen: This is an 84-year-old female. Patient is resting in a recliner and appears to be comfortable. Granddaughter and great grandchildren at bedside. HEENT: Head is atraumatic, normocephalic. Pupils equal, round. Sclerae is anicteric. NECK: Supple. No JVD. No lymphadenopathy. No thyromegaly. LUNGS: Clear to auscultation. No wheezes or rhonchi. No intercostal retractions. HEART: Regular rate and rhythm. No murmur. ABDOMEN: Soft. Bowel sounds are present. No masses. Mild generalized abdominal tenderness. Small dressing in place with no breakthrough bleeding. FRACISCO drain with serosanguineous drainage. Guajardo catheter placed draining [place]umb[place] urine. EXTREMITIES: No pedal edema. No calf tenderness. NEUROLOGICAL: Patient is awake, alert and oriented x3. Cranial nerves 2 through 12 are grossly intact. - Labs CBC & Chem 7: 10/24/19 10:43 10/24/19 10:43 Labs: Abnormal Lab Results - Last 24 Hours (Table) 10/23/19 10/23/19 10/24/19 Range/Units 11:45 16:52 00:01 POC Glucose (mg/dL) 149 H 117 H 100 H (75-99) mg/dL 10/24/19 Range/Units 06:18 POC Glucose (mg/dL) 113 H (75-99) mg/dL Assessment and Plan Plan: 1. Small bowel obstruction secondary to incarcerated umbilical hernia status post repair, postop day #2. Clear liquids to start today. Continue incentive spirometry to reduce incidence of atelectasis and hospital-acquired pneumonia. Continue Dilaudid or Tylenol for pain 2. History of multiple DVTs and PE on intermediate manager Coumadin. Coumadin on hold. Consult with Dr. Askew regarding plan schedule for Malik filter. Consult with Dr. Patricia regarding anticoagulation versus filter placement. Current plan is to hold on Malik filter and following abdominal surgery, patient has been started on Lovenox. 3. Acute lactic acidosis and hypovolemic hypotension secondary to bowel obstruction, lack of oral intake and loose stools. Patient is status post 1 L of IV fluids. Continue IV fluids at 150 mL per hour. 4. Paroxysmal atrial fibrillation. Continue metoprolol increased back to 50 mg twice daily. Patient will be resumed on Coumadin starting tonight at 2 mg and recheck INR in the morning. Continue Lovenox until therapeutic INR. 4. Valvular heart disease of the aortic, mitral and tricuspid with aortic stenosis next field. 5. Hypertension. Hold Lasix, Norvasc. 6. Hyperlipidemia. Hold Zocor. 7. Diabetes mellitus type 2. Hold glipizide. Start NovoLog scale every 6 hours. 8. Spinal stenosis with plan for surgical intervention and an outside facility in the near future. Discussed need to postpone this for greater than 4 weeks. 9. Recurrent depression. Patient is normally on Wellbutrin SR 150 mg twice daily. 10. Coagulopathy secondary to Coumadin use. Patient is status post vitamin K and fresh frozen plasma. 11. Gastroesophageal reflux disease. Protonix IV. 12. DVT prophylaxis. Lovenox. CODE STATUS: Full code Discharge plan: [facility] or [facility] on Tuesday Impression and plan of care have been directed as dictated by the signing physician. India Conway nurse practitioner acting as scribe for signing physician.
[2019-10-24 17:01] LABS: Glucose,Whole Blood 111 mg/dL (75-99)
[2019-10-24] MEDS ORDERED: WARFARIN 2 MG TAB PO ONE (18:00)
[2019-10-24] MEDS: METOPROLOL TARTRATE 50 MG TAB PO SCH (21:33)
[2019-10-24] MEDS: HYDROmorphone 0.5 MG/0.5 ML SYRINGE IVP PRN (23:10)
[2019-10-25 00:01] LABS: Glucose,Whole Blood 125 mg/dL (75-99)
[2019-10-25] MEDS: INSULIN ASPART (NovoLOG) 100 UNIT/ML VIAL SQ SCH ×4 (00:07→17:37)
[2019-10-25] MEDS: SODIUM CHLORIDE 0.9% 1,000 ML IV SCH (05:14)
[2019-10-25 06:19] LABS: Glucose,Whole Blood 137 mg/dL (75-99)
[2019-10-25] MEDS: PANTOPRAZOLE 40 MG/10 ML VIAL IVP SCH (08:06)
[2019-10-25] MEDS: METOPROLOL TARTRATE 50 MG TAB PO SCH ×2 (08:06→09:42)
[2019-10-25] MEDS: ENOXAPARIN 40 MG/0.4 ML SYRINGE SQ SCH (08:06)
[2019-10-25] MEDS: ACETAMINOPHEN TAB 325 MG TAB PO PRN (08:24)
[2019-10-25] MEDS ORDERED: METOCLOPRAMIDE 5 MG/ML 2 ML VIAL IVP STA (09:28)
[2019-10-25 10:22] LABS: Anisocytosis Slight; HCT 32.6 % (34.0-46.0); HGB 10.2 gm/dL (11.4-16.0); Hypochromasia Marked; MCH 25.7 pg (25.0-35.0); MCHC 31.3 g/dL (31.0-37.0); MCV 82.1 fL (80.0-100.0); Mean Platelet Volume 6.5; Platelet Count 222 k/uL (150-450); RBC 3.97 m/uL (3.80-5.40); RDW 16.7 % (11.5-15.5); WBC 6.9 k/uL (3.8-10.6)
[2019-10-25 10:27] LABS: INR 0.9 (<1.2); Prothrombin Time 10.1 sec (9.0-12.0)
--- NOTE | 2019-10-25 11:46 | P.CNOR ---
History of Present Illness - HPI Consult date: 10/25/19 History of present illness: This is an 84-year-old female is admitted for incarcerated umbilical hernia. Patient underwent repair of incarcerated umbilical hernia on 10/22/2019. Orthopedics is consulted due to chronic left ankle pain. Patient states that when she attempts to bear weight on the left lower extremity the left ankle and knee buckle. Patient states that she was at [facility] for rehabilitation prior to this admission. Patient states that she fell 3 or 4 weeks ago, but she denies any new injury. The patient was admitted to [facility] one month ago for pain in the left leg after a fall. Patient states that she feels weakness in the left leg. Patient states that she was supposed to have spine surgery for spinal stenosis in August, but has been unable to get this done due to other medical problems. Patient's past medical history significant for diabetes mellitus, GERD, hyperlipidemia, hypertension, osteoarthritis, history of pulmonary embolus, history of DVT, history of pneumonia and renal disease.Patient denies any fever/chills, numbness, tingling, abdominal pain, shortness of breath or chest pain. Review of Systems See HPI. Past Medical History Past Medical History: Blood Disorder, Diabetes Mellitus, Deep Vein Thrombosis (DVT), GERD/Reflux, Hyperlipidemia, Hypertension, Osteoarthritis (OA), Pneumoni a, Pulmonary Embolus (PE), Renal Disease Additional Past Medical History / Comment(s): Hx of PE & DVT over 11 yrs ago. Morbid obesity, mass on right kidney, cellulitis BLE, fall at home, history of bilateral total knee replacements approximately [address] Augustin. History of spinal stenosis and is scheduled to have surgery at another facility in the near future History of Any Multi-Drug Resistant Organisms: None Reported Past Surgical History: Breast Surgery, Cholecystectomy, Joint Replacement, Orthopedic Surgery Additional Past Surgical History / Comment(s): thelma knee replac; L shoulder replac.; carpel tunnel vaginal duct cyst; benign breast surg; cataracts; retinal repair left eye Past Anesthesia/Blood Transfusion Reactions: No Reported Reaction Past Psychological History: No Psychological Hx Reported Smoking Status: Never smoker Past Alcohol Use History: None Reported Past Drug Use History: None Reported - Past Family History Father Family Medical History: Deep Vein Thrombosis (DVT) Son(s) Family Medical History: Deep Vein Thrombosis (DVT) Mother Family Medical History: Cancer Additional Family Medical History / Comment(s): Mother had cancer in her back. Daughter(s) Family Medical History: Blood Disorder Additional Family Medical History / Comment(s): Daughter has MTHFR factor and pt's grandson has lyme factor V and grand daughter has MTHFR. Medications and Allergies Home Medications Medication Instructions Recorded Confirmed Type Metoprolol Tartrate [Lopressor] 50 mg PO BID 08/25/17 10/22/19 History Simvastatin [Zocor] 10 mg PO HS 08/25/17 10/22/19 History glipiZIDE [Glucotrol] 5 mg PO HS 08/25/17 10/22/19 History metFORMIN HCL [Glucophage] 1,000 mg PO AC-BID 08/25/17 10/22/19 History Furosemide [Lasix] 40 mg PO DAILY PRN 08/19/19 10/22/19 History Omeprazole [PriLOSEC] 20 mg PO DAILY 08/19/19 10/22/19 History Potassium Chloride [Klor-Con 20] 20 meq PO DAILY PRN 08/19/19 10/22/19 History amLODIPine [Norvasc] 2.5 mg PO DAILY 08/19/19 10/22/19 History Acetaminophen Tab [Tylenol] 650 mg PO Q6HR PRN tab 08/22/19 10/22/19 Rx guaiFENesin [Mucinex] 600 mg PO Q12HR PRN tablet.er 09/25/19 10/22/19 Rx HYDROcodone/APAP 5-325MG [[place] 1 tab PO Q4HR PRN 10/22/19 10/22/19 History 5-325] Warfarin Sodium [Coumadin] 1.25 mg PO DAILY@1800 10/22/19 10/22/19 History buPROPion HCL [Wellbutrin SR] 150 mg PO BID 10/22/19 10/22/19 History Allergies Allergy/AdvReac Type Severity Reaction Status Date / Time Penicillins Allergy Rash/Hives Verified 10/22/19 07:33 azithromycin AdvReac Dyspnea & Verified 10/22/19 07:33 nausea ciprofloxacin [From Cipro] AdvReac Dyspnea & Verified 10/22/19 07:33 nausea Physical Examination On exam patient is resting comfortably in a chair in no acute distress. There is generalized tenderness to palpation over the left knee and left ankle. Patient has full range of motion of the left foot and ankle. There is no swelling or ecchymosis over the left ankle. Patient has 4/5 strength with dorsiflexion and plantarflexion. EHL strength 4/5 bilaterally. Patient has difficulty with active flexion of the left knee due to pain and weakness. Passive flexion of the left knee to 85. Full extension of the left knee. There is no effusion of the left knee. Skin is intact. Left calf is soft and nontender to palpation. Sensation intact. Neurovascular status and circulatory status are intact. Results - Labs Labs: Abnormal Lab Results - Last 24 Hours (Table) 10/24/19 10/24/19 10/24/19 Range/Units 10:43 10:43 16:59 Hgb 10.2 L D (11.4-16.0) gm/dL Hct 32.4 L (34.0-46.0) % RDW 16.6 H (11.5-15.5) % Chloride 110 H (98-107) mmol/L BUN 22 H (7-17) mg/dL Glucose 148 H (74-99) mg/dL POC Glucose (mg/dL) 111 H (75-99) mg/dL Calcium 8.3 L (8.4-10.2) mg/dL Total Protein 5.3 L (6.3-8.2) g/dL Albumin 2.6 L (3.5-5.0) g/dL 10/24/19 10/25/19 10/25/19 Range/Units 23:55 06:13 09:49 Hgb 10.2 L (11.4-16.0) gm/dL Hct 32.6 L (34.0-46.0) % RDW 16.7 H (11.5-15.5) % Chloride (98-107) mmol/L BUN (7-17) mg/dL Glucose (74-99) mg/dL POC Glucose (mg/dL) 125 H 137 H (75-99) mg/dL Calcium (8.4-10.2) mg/dL Total Protein (6.3-8.2) g/dL Albumin (3.5-5.0) g/dL H & H 10/22/19 10/24/19 10/25/19 Range/Units 03:35 10:43 09:49 Hgb 13.4 10.2 L D 10.2 L (11.4-16.0) gm/dL Hct 41.4 32.4 L 32.6 L (34.0-46.0) % Coagulation 10/22/19 10/22/19 10/24/19 Range/Units 03:35 14:37 10:43 INR 2.1 H 1.3 H 1.0 (<1.2) 10/25/19 Range/Units 09:49 INR 0.9 (<1.2) Result Diagrams: 10/25/19 09:49 10/24/19 10:43 Assessment and Plan (1) Left ankle pain Current Visit: Yes Status: Acute Code(s): M25.572 - PAIN IN LEFT ANKLE AND JOINTS OF LEFT FOOT SNOMED Code(s): 169015146 (2) Left knee pain Current Visit: Yes Status: Acute Code(s): M25.562 - PAIN IN LEFT KNEE SNOMED Code(s): 81536795 (3) Bowel obstruction Current Visit: Yes Status: Acute Code(s): K56.609 - UNSP INTESTNL OBST, UNSP TO PARTIAL VERSUS COMPLETE OBST SNOMED Code(s): 31144251 (4) Umbilical hernia Current Visit: Yes Status: Acute Code(s): K42.9 - UMBILICAL HERNIA WITHOUT OBSTRUCTION OR GANGRENE SNOMED Code(s): 638763585 Plan: 1. X-rays of the left knee and left ankle are pending. 2. Further recommendations pending x-ray results. Patient will likely need physical therapy for mobilization.
[2019-10-25 12:11] LABS: Glucose,Whole Blood 158 mg/dL (75-99)
--- NOTE | 2019-10-25 13:48 | P.PN ---
Subjective Progress Note Date: 10/25/19 Principal diagnosis: Small bowel obstruction with incarcerated the medical hernia, history of multiple DVT and PEs, acute lactic acidosis, paroxysmal atrophy fibrillation, hypertension and type 2 diabetes, severe spinal stenosis planning to do surgery in 4-6 weeks. 84-year-old female patient of Dr. Liu, recently admitted fall and concern was for a left leg fracture which was ruled out. The patient was discharged to [facility]. 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 Patient presented due to abdominal pain that covered the entire abdomen that started on Tuesday evening. She described it as cramps and went around to her back. She took Tylenol wi thout any improvement and tried cold pack and heat. She denies having any diarrhea but stools are looser than normal. She stated she had nausea and complained of vomiting but has been status it was more burping up versus true vomiting. No fever or chills. The pain continued to worsen and she came in this morning to [facility] for evaluation. CAT scan of the abdomen and pelvis with contrast revealed distended small bowel suggestive of partial mechanical small bowel obstruction due to incarcerated umbilical hernia. Obstruction appears new compared to old exam. Patchy atelectasis at the lung bases. CBC was unremarkable, CO2 19, creatinine 0.85, blood sugar 222, lactic acid 3.4, INR 2.1, troponin negative. [facility] and consult in place with Dr. Hampton with plan for surgical intervention. Due to elevated INR of 2.1, vitamin K and fresh frozen plasma were ordered. Daughter also states that patient was scheduled next week for a Malik filter by Dr. Askew as patient was post to have this done prior to her spinal stenosis surgery. Dr. Askew was contacted and he agreed to come over as soon as possible to evaluate the patient. In the meantime, Dr. Patricia was contacted with recommendations to proceed with abdominal surgery for bowel obstruction and start Lovenox following surgery and later make a final determination regarding implantation of Malik filter. Patient, her and daughter were all in agreement for this. Patient's daughter Bree is POA. 10/23: Yesterday, the patient underwent repair of incarcerated umbilical hernia, partial omentectomy, umbilical to me with Dr. Hampton. Patient is postop day #1. She states she is still having some abdominal discomfort. FRACISCO drain in place. Temperature max 100.4, blood pressure 89/51, heart rate 99, pulse ox 97% on 3 L nasal cannula. Patient remains nothing by mouth and IV fluids at 150 mL per hour. Patient has been started on Lovenox 40 mg subcu every 12 hours. Blood sugars are running between 12/21/1946. 10/24: This morning, patient's heart rate has been labile running up to 120 and then back down to 66. She is currently on Lopressor 25 mg twice daily and she has been on Lovenox as well. EKG was done which revealed A. fib with RVR. Lopressor will be increased back to her home dose of 50 mg twice daily. Temperature max 100.2, blood pressure remains low at 90/66, pulse ox 100% on 2 L nasal cannula. Patient is currently nothing by mouth except for ice chips and medications and has been advanced to clear liquids today. Patient does state that she is hungry. She is complaining of left ankle pain which is chronic and will ask orthopedic surgery to evaluate. [facility]. Repeat lab work reveals hemoglobin 10.2, creatinine 0.66, blood sugars running between 113 and 148. Patient has been evaluated by PT and OT with recommendations for subacute rehab. Patient has been at both [facility] and [facility] and seems undecided which should go to. She does have a granddaughter who works at [employer]. Social work updated and will contact GRACEYoel, daughter Bree. She will be resumed on Coumadin at 2 mg tonight and continue Lovenox until INR is therapeutic. 10/25: Patient INR still subtherapeutic at 0.9, patient remain on Lovenox until the INR at least is about 1.75, patient is doing much better fully catheter be taking out today advance PTOT and prepare for rehab tomorrow for another blood work tomorrow as an prepare for her back surgery patient will be seen Dr. Askew later on date 1 week or 10 days before back surgery to do the Malik filter prepare for the surgery. Objective - Vital Signs Vital signs: Vital Signs Temp 98.8 F 10/25/19 04:30 Pulse 109 H 10/25/19 09:06 Resp 20 10/25/19 04:30 BP 97/69 10/25/19 09:06 Pulse Ox 92 L 10/25/19 04:30 Intake & Output 10/24/19 10/25/19 10/25/19 18:59 06:59 18:59 Intake Total 300 Output Total 300 400 Balance -300 -100 Intake: Oral 300 Output: Urine 300 400 Uretheral (Guajardo) 200 Other: Voiding Method Indwelling Catheter Indwelling Catheter Indwelling Catheter - Exam Review of Systems Constitutional: Reports fatigue, Reports weakness, Denies anorexia, Denies chills, Denies fever, Denies poor appetite Ears, nose, mouth and throat: Denies dysphagia, Denies headache, Denies nasal congestion, Denies nasal discharge, Denies sore throat, Denies vertigo Cardiovascular: Denies chest pain, Denies decreased exercise tolerance, Denies dyspnea on exertion, Denies lightheadedness, Denies shortness of breath, Denies syncope Respiratory: Denies cough, Denies cough with sputum, Denies dyspnea, Denies excessive sputum, Denies hemoptysis, Denies home oxygen, Denies respiratory infections, Denies wheezing Gastrointestinal: Reports abdominal discomfort, denies bloating, denies diarrhea, denies loss of appetite, denies nausea, Denies constipation, Denies vomiting Genitourinary: Denies dysuria, Denies hematuria, Denies urgency, Denies urinary frequency Musculoskeletal: Reports gait dysfunction, Reports muscle weakness, Denies myalgias Integumentary: Denies pruritus, Denies rash, Denies wounds Neurological: Reports gait dysfunction, Denies change in mentation, Denies change in speech, Denies numbness, Denies weakness Psychiatric: Denies anxiety, Denies depression Endocrine: Denies fatigue, Denies weight change Objective - Exam Gen: This is an 84-year-old female. Patient is resting in a recliner and appears to be comfortable. Granddaughter and great grandchildren at bedside. HEENT: Head is atraumatic, normocephalic. Pupils equal, round. Sclerae is anicteric. NECK: Supple. No JVD. No lymphadenopathy. No thyromegaly. LUNGS: Clear to auscultation. No wheezes or rhonchi. No intercostal retractions. HEART: Regular rate and rhythm. No murmur. ABDOMEN: Soft. Bowel sounds are present. No masses. Mild generalized abdominal tenderness. Small dressing in place with no breakthrough bleeding. FRACISCO drain with serosanguineous drainage. Guajardo catheter placed draining columba urine. EXTREMITIES: No pedal edema. No calf tenderness. NEUROLOGICAL: Patient is awake, alert and oriented x3. Cranial nerves 2 through 12 are grossly intact. - Labs CBC & Chem 7: 10/25/19 09:49 10/24/19 10:43 Labs: Abnormal Lab Results - Last 24 Hours (Table) 10/24/19 10/24/19 10/24/19 Range/Units 10:43 10:43 11:23 Hgb 10.2 L D (11.4-16.0) gm/dL Hct 32.4 L (34.0-46.0) % RDW 16.6 H (11.5-15.5) % Chloride 110 H (98-107) mmol/L BUN 22 H (7-17) mg/dL Glucose 148 H (74-99) mg/dL POC Glucose (mg/dL) 143 H (75-99) mg/dL Calcium 8.3 L (8.4-10.2) mg/dL Total Protein 5.3 L (6.3-8.2) g/dL Albumin 2.6 L (3.5-5.0) g/dL 10/24/19 10/24/19 10/25/19 Range/Units 16:59 23:55 06:13 Hgb (11.4-16.0) gm/dL Hct (34.0-46.0) % RDW (11.5-15.5) % Chloride (98-107) mmol/L BUN (7-17) mg/dL Glucose (74-99) mg/dL POC Glucose (mg/dL) 111 H 125 H 137 H (75-99) mg/dL Calcium (8.4-10.2) mg/dL Total Protein (6.3-8.2) g/dL Albumin (3.5-5.0) g/dL Assessment and Plan Plan: 1. Small bowel obstruction secondary to incarcerated umbilical hernia status post repair, postop day #2. Clear liquids to start today. Continue incentive spirometry to reduce incidence of atelectasis and hospital-acquired pneumonia. Continue Dilaudid or Tylenol for pain, diet will be titrated today patient is doing more physical therapy. For rehab in the next day. 2. History of multiple DVTs and PE on senior care Coumadin. Remain on Lovenox as a bridge to warfarin level is therapeutic and prepare for her back surgery might still need to have her Malik filter placement with Dr. Askew one of 2 weeks before back surgery. 3. Acute lactic acidosis and hypovolemic hypotension secondary to surgical problem is much better so far after treatment. 4. Paroxysmal atrial fibrillation. Continue metoprolol increased back to 50 mg twice daily. Patient will be resumed on Coumadin starting tonight at 2 mg and recheck INR in the morning. Continue Lovenox until therapeutic INR. 4. Valvular heart disease of the aortic, mitral and tricuspid with aortic stenosis next field. 5. Hypertension. Hold Lasix, Norvasc. 6. Hyperlipidemia. Hold Zocor. 7. Diabetes mellitus type 2. Hold glipizide. Start NovoLog scale every 6 hours. 8. Spinal stenosis with plan for surgical intervention and an outside facility in the near future. Discussed need to postpone this for greater than 4 weeks. 9. Recurrent depression. Patient is normally on Wellbutrin SR 150 mg twice daily. 10. Coagulopathy secondary to Coumadin use. Patient is status post vitamin K and fresh frozen plasma. 11. Gastroesophageal reflux disease. Protonix IV. 12. DVT prophylaxis. Lovenox. Discharge planning: Possibly going to rehab tomorrow.
--- NOTE | 2019-10-25 16:17 | P.PN ---
Subjective Progress Note Date: 10/25/19 CHIEF COMPLAINT: Abdominal pain HISTORY OF PRESENT ILLNESS: Patient is status post repair of incarcerated umbilical hernia, partial omentectomy, and umbilectomy. POD #3. Patient reports pain is tolerable. She is passing flatus. Denies BM. Tolerating clear liquid diet. Denies nausea or vomiting. PHYSICAL EXAM: VITAL SIGNS: Reviewed. GENERAL: Well-developed in no acute distress. HEENT: No sclera icterus. Extraocular movements grossly intact. Moist buccal mucosa. Head is atraumatic, normocephalic. ABDOMEN: Obese. Soft. Nondistended. Dressing clean dry intact. Abdominal binder noted. NEUROLOGIC: Alert and oriented. Cranial nerves II through XII grossly intact. ASSESSMENT: 1. Incarcerated umbilical hernia PLAN: Advance diet to full liquids incentive spirometer Increase activity as tolerated Pain control Nurse practitioner note has been reviewed by physician. Signing provider agrees with the documented findings, assessment, and plan of care. Objective - Vital Signs Vital signs: Vital Signs Temp 97.9 F 10/25/19 14:08 Pulse 103 H 10/25/19 14:08 Resp 16 10/25/19 14:08 BP 102/72 10/25/19 14:08 Pulse Ox 98 10/25/19 14:08 Intake & Output 10/24/19 10/25/19 10/25/19 18:59 06:59 18:59 Intake Total 300 Output Total 300 400 Balance -300 -100 Intake: Oral 300 Output: Urine 300 400 Uretheral (Guajardo) 200 Other: Voiding Method Indwelling Catheter Indwelling Catheter Indwelling Catheter # Voids 1 - Labs CBC & Chem 7: 10/25/19 09:49 10/24/19 10:43 Labs: Abnormal Lab Results - Last 24 Hours (Table) 10/24/19 10/24/19 10/25/19 Range/Units 16:59 23:55 06:13 Hgb (11.4-16.0) gm/dL Hct (34.0-46.0) % RDW (11.5-15.5) % POC Glucose (mg/dL) 111 H 125 H 137 H (75-99) mg/dL 10/25/19 10/25/19 Range/Units 09:49 12:09 Hgb 10.2 L (11.4-16.0) gm/dL Hct 32.6 L (34.0-46.0) % RDW 16.7 H (11.5-15.5) % POC Glucose (mg/dL) 158 H (75-99) mg/dL
[2019-10-25 17:26] LABS: Glucose,Whole Blood 162 mg/dL (75-99)
[2019-10-25] MEDS ORDERED: WARFARIN 2 MG TAB PO SCH (18:00)
[2019-10-25] MEDS: ENOXAPARIN 120 MG/0.8 ML SYRINGE SQ SCH (19:44)
--- NOTE | 2019-10-25 21:01 | XR ---
PROCEDURE: XR ankle complete LT - 3V DATE AND TIME: 10/25/2019 7:41 PM CLINICAL INDICATION: PHH; pain TECHNIQUE: Department protocol COMPARISON: 09/24/2019 FINDINGS: The mortise is intact. There is no evident fracture or malalignment. The soft tissues are u nremarkable. IMPRESSION: NO ACUTE PROCESS.
--- NOTE | 2019-10-25 21:06 | XR ---
PROCEDURE: XR knee limited LT - 2V DATE AND TIME: 10/25/2019 7:40 PM CLINICAL INDICATION: PHH; pain TECHNIQUE: Department protocol COMPARISON: 09/24/2019 FINDINGS: The minimally posterolateral-displaced left fibular neck fracture shows circumferential pro minent callus formation, new since the prior study. The TKR is intact with anatomic positioning and alignment. The soft tissues are unremarkable. IMPRESSION: Fibular neck fracture with interval callus formation.
[2019-10-25 22:43] VITALS: RESP 20
[2019-10-26 00:22] LABS: Glucose,Whole Blood 134 mg/dL (75-99)
[2019-10-26] MEDS: INSULIN ASPART (NovoLOG) 100 UNIT/ML VIAL SQ SCH ×3 (00:27→12:41)
[2019-10-26] MEDS: SODIUM CHLORIDE 0.9% 1,000 ML IV SCH (01:47)
[2019-10-26 06:01] VITALS: BP 122/82; PULSE 105; TEMP 98.5
[2019-10-26 06:16] LABS: Glucose,Whole Blood 157 mg/dL (75-99)
[2019-10-26] MEDS: PANTOPRAZOLE 40 MG/10 ML VIAL IVP SCH (07:22)
[2019-10-26] MEDS: ENOXAPARIN 120 MG/0.8 ML SYRINGE SQ SCH (07:22)
[2019-10-26] MEDS: METOPROLOL TARTRATE 50 MG TAB PO SCH (07:22)
[2019-10-26] MEDS: ACETAMINOPHEN TAB 325 MG TAB PO PRN (07:39)
[2019-10-26 09:19] LABS: Anisocytosis Slight; Basophils % (A) 0 %; Eosinophils # (A) 0.1 k/uL (0-0.7); Eosinophils % (A) 1 %; HCT 32.8 % (34.0-46.0); HGB 10.4 gm/dL (11.4-16.0); Hypochromasia Moderate; Lymphocytes % (A) 15 %; MCH 25.6 pg (25.0-35.0); MCHC 31.7 g/dL (31.0-37.0); MCV 80.9 fL (80.0-100.0); Mean Platelet Volume 8.7; Monocytes # (A) 0.7 k/uL (0-1.0); Monocytes % (A) 10 %; Neutrophils # (A) 4.8 k/uL (1.3-7.7); Neutrophils % (A) 71 %; Platelet Count 269 k/uL (150-450); RBC 4.05 m/uL (3.80-5.40); RDW 16.7 % (11.5-15.5); WBC 6.7 k/uL (3.8-10.6)
[2019-10-26] MEDS ORDERED: BISACODYL 10 MG SUPP RECTAL STA (09:22)
[2019-10-26 09:30] LABS: INR 1.1 (<1.2); Prothrombin Time 11.6 sec (9.0-12.0)
[2019-10-26 09:31] LABS: ALT 18 U/L (9-52); AST 15 U/L (14-36); African American GFR (CKD) >90 (>60 ml/min/1.73 sqM); Albumin 2.7 g/dL (3.5-5.0); Alkaline Phosphatase 78 U/L (38-126); Anion Gap 10 mmol/L; Blood Urea Nitrogen 15 mg/dL (7-17); Calcium 8.4 mg/dL (8.4-10.2); Carbon Dioxide 22 mmol/L (22-30); Chloride 104 mmol/L (98-107); Glucose 184 mg/dL (74-99); Non-African American GFR(CKD) 87 (>60 ml/min/1.73 sqM); Potassium 3.7 mmol/L (3.5-5.1); Sodium 136 mmol/L (137-145); Total Bilirubin 0.6 mg/dL (0.2-1.3); Total Protein 5.7 g/dL (6.3-8.2)
--- NOTE | 2019-10-26 10:13 | P.PN ---
Subjective Progress Note Date: 10/26/19 CHIEF COMPLAINT: Abdominal pain HISTORY OF PRESENT ILLNESS: Patient is status post repair of incarcerated umbilical hernia, partial omentectomy, and umbilectomy. POD #4. Patient reports pain is tolerable. She is passing flatus. Denies BM. Tolerating full liquid diet. Denies nausea or vomiting. Patient is extremely weak and is getting to the chair only with 3 person assistance. She has not been able to ambulate any farther then the chair in her room. PHYSICAL EXAM: VITAL SIGNS: Reviewed. GENERAL: Well-developed in no acute distress. HEENT: No sclera icterus. Extraocular movements grossly intact. Moist buccal mucosa. Head is atraumatic, normocephalic. ABDOMEN: Obese. Soft. Nondistended. Dressing clean dry intact. Abdominal binder noted. NEUROLOGIC: Alert and oriented. Cranial nerves II through XII grossly intact. ASSESSMENT: 1. Incarcerated umbilical hernia PLAN: Continue full liquid diet. Await BM. Dulcolax suppository x 1 incentive spirometer Increase activity as tolerated Pain control Nurse practitioner note has been reviewed by physician. Signing provider agrees with the documented findings, assessment, and plan of care. Objective - Vital Signs Vital signs: Vital Signs Temp 98.5 F 10/26/19 05:59 Pulse 105 H 10/26/19 05:59 Resp 20 10/26/19 05:59 BP 122/82 10/26/19 05:59 Pulse Ox 94 L 10/26/19 05:59 Intake & Output 10/25/19 10/26/19 10/26/19 18:59 06:59 18:59 Output Total 100 Balance -100 Output: Urine 100 Other: Voiding Method Indwelling Catheter # Voids 1 1 - Labs CBC & Chem 7: 10/26/19 08:54 10/26/19 08:54 Labs: Abnormal Lab Results - Last 24 Hours (Table) 10/25/19 10/25/19 10/25/19 Range/Units 09:49 12: 17:23 Hgb 10.2 L (11.4-16.0) gm/dL Hct 32.6 L (34.0-46.0) % RDW 16.7 H (11.5-15.5) % Sodium (137-145) mmol/L Glucose (74-99) mg/dL POC Glucose (mg/dL) 158 H 162 H (75-99) mg/dL Total Protein (6.3-8.2) g/dL Albumin (3.5-5.0) g/dL 10/26/19 10/26/19 10/26/19 Range/Units 00:19 06:12 08:54 Hgb 10.4 L (11.4-16.0) gm/dL Hct 32.8 L (34.0-46.0) % RDW 16.7 H (11.5-15.5) % Sodium (137-145) mmol/L Glucose (74-99) mg/dL POC Glucose (mg/dL) 134 H 157 H (75-99) mg/dL Total Protein (6.3-8.2) g/dL Albumin (3.5-5.0) g/dL 10/26/19 Range/Units 08:54 Hgb (11.4-16.0) gm/dL Hct (34.0-46.0) % RDW (11.5-15.5) % Sodium 136 L (137-145) mmol/L Glucose 184 H (74-99) mg/dL POC Glucose (mg/dL) (75-99) mg/dL Total Protein 5.7 L (6.3-8.2) g/dL Albumin 2.7 L (3.5-5.0) g/dL
[2019-10-26 11:54] LABS: Glucose,Whole Blood 205 mg/dL (75-99)
--- NOTE | 2019-10-26 12:30 | P.PN ---
Progress Note - Text Progress Note Date: 10/26/19 Orthopedics: History of present illness: Patient is a very pleasant 84-year-old female who is seen and examined at bedside for follow-up evaluation in regards to left knee and left ankle pain. Patient originally sustained multiple falls in early September 2019. She was seen and examined at [facility] on 09/24/2019. Reviewing of x- ray imaging did show some cortical irregularity at the proximal fibular head without obvious fracture. At that time it was recommended to continue with conservative treatment with weightbearing as tolerated on the left lower extremity without the need for bracing or surgical intervention. Patient has continued to have left knee and ankle pain. She has not fallen since her previous evaluation on 09/24/2019. X-ray imaging taken yesterday, 10/25/2019, does show bone growth at the proximal fibula/fibular head. Patient is also known to have neuropathy in the feet bilaterally. She also has left lower extremity weakness is known have lumbar spinal canal stenosis. She states she was scheduled to undergo surgical intervention with a neurosurgeon at [facility] but has been unable to get medical clearance due to other medical diagnoses. During this admission patient was admitted for incarcerated umbilical hernia and underwent surgical intervention on 10/22/2019. She is currently scheduled for discharge to [facility] rehabilitation facility today, 10/26/2019. Patient does have a significant medical history which includes diabetes mellitus, hyperlipidemia, hypertension, osteoporosis, history of pulmonary embolism, history of DVT, and history of pneumonia with history of multiple falls. Physical Exam: Patient is awake, alert, and oriented 3 Vital signs stable Good chest excursion with deep inspiration and expiration Pain with palpation over the left proximal fibula near the fibular head Trophic skin changes the bilateral lower extremities Bilateral weakness with dorsiflexion, plantarflexion, extensor hallucis longus greater on the left than the right Neuropathy of bilateral feet in which patient is able to have sensation to palpation which differs from sensation over the bilateral knees No significant swelling, bruising, erythema, or obvious sign of infection over the axonal fibular fracture site Pertinent studies: X-rays of the left knee taken on 10/25/2019: Evidence of proximal left fibular fracture with prominent callus formation as compared to previous study taken 09/24/2019 X-rays of the left ankle taken on 10/25/2019: No evidence of fracture or malalignment of the left ankle; soft tissues are unremarkable Assessment: Subacute left proximal fibular fracture with callus bone formation Status post multiple falls early September 2019 Left knee and ankle pain Lower extremity weakness greater on the left than the right Neuropathy bilateral lower extremities Diabetes mellitus Hyperlipidemia Hypertension Osteoporosis History of pulmonary embolism History of DVT History of pneumonia Plan: 1. After reviewing of imaging, physical examination, further discussion with the patient, and further discussion with Dr. Deniz Sanchez, we will continue conservative treatment at this time. Patient does have evidence of subacute left proximal fibular fracture with callus bone formation which appears to be in good alignment and position. Fracture appears to be healing. At this time, patient may continue to weight-bear as tolerated on the left lower extremity. We did discuss patient with benefit from ambulation with a walker given her chronic left lower extremity weakness. She has some weakness on the right lower extremities as well to a lesser degree. She does have neuropathy in the bilateral feet. Patient is known have lumbar stenosis and was previously scheduled for surgical intervention with a neurosurgeon at [facility] in [place]. We discussed we will continue to follow the patient in regards to her left fibular fracture. She may continue to follow up with her neurosurgeon as previously scheduled in regards to her lumbar spine. She is currently scheduled for discharge to [facility] rehabilitation facility today. We will plan have her follow up with Bhupinder Morales PA-C or Dr. Deniz Sanchez at [facility] in approximately 2 weeks for further evaluation. 2. Patient will continue be seen and examined by the medical providers for her other medical diagnoses including status post surgical intervention for incarcerated umbilical hernia
--- NOTE | 2019-10-26 14:29 | P.DS ---
Providers Date of admission: 10/22/19 06:37 Attending physician: Robert Alonzo MD Consults: 10/22/19 06:40 Consult Physician Stat Consulting Provider: Mohamud Hampton Consult Reason/Comments: Incarcerated umbilical hernia Do you want consulting provider notified?: Already Contacted 10/22/19 08:54 Consult Physician Stat Consulting Provider: Sav Askew Consult Reason/Comments: IVC filter Do you want consulting provider notified?: Yes 10/22/19 10:03 Consult Physician Routine Consulting Provider: Riley Patricia Consult Reason/Comments: DVTs and PE hx eval for need for [place] Do you want consulting provider notified?: Yes 10/22/19 10:05 Consult Physician Urgent Consulting Provider: Riley Patricia Consult Reason/Comments: DVTs and PE hx eval for need for [place] Do you want consulting provider notified?: Yes 10/24/19 10:22 Consult Physician Routine Consulting Provider: Juvenal Sanchez Consult Reason/Comments: left ankle pain Do you want consulting provider notified?: Yes Primary care physician: Kinjal Liu Hospital Course: Principal diagnosis: Small bowel obstruction with incarcerated the medical hernia, history of multiple DVT and PEs, acute lactic acidosis, paroxysmal atrophy fibrillation, hypertension and type 2 diabetes, severe spinal stenosis planning to do surgery in 4-6 weeks. 84-year-old female patient of Dr. Liu, recently admitted fall and concern was for a left leg fracture which was ruled out. The patient was discharged to [facility]. 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 Patient presented due to abdominal pain that covered the entire abdomen that started on Tuesday evening. She described it as cramps and went around to her back. She took Tylenol without any improvement and tried cold pack and heat. She denies having any diarrhea but stools are looser than normal. She stated she had nausea and complained of vomiting but has been status it was more burping up versus true vomiting. No fever or chills. The pain continued to worsen and she came in this morning to [facility] emergency center for evaluation. CAT scan of the abdomen and pelvis with contrast revealed distended small bowel suggestive of partial mechanical small bowel obstruction due to incarcerated umbilical hernia. Obstruction appears new compared to old exam. Patchy atelectasis at the lung bases. CBC was unremarkable, CO2 19, creatinine 0.85, blood sugar 222, lactic acid 3.4, INR 2.1, troponin negative. Patient was admitted to the [facility] floor and consult in place with Dr. Hampton with plan for surgical intervention. Due to elevated INR of 2.1, vitamin K and fresh frozen plasma were ordered. Daughter also states that patient was scheduled next week for a [place] filter by Dr. Askew as patient was post to have this done prior to her spinal stenosis surgery. Dr. Askew was contacted and he agreed to come over as soon as possible to evaluate the patient. In the meantime, Dr. Patricia was contacted with recommendations to proceed with abdominal surgery for bowel obstruction and start Lovenox following surgery and later make a final determination regarding implantation of [place] filter. Patient, her and daughter were all in agreement for this. Patient's daughter Bree is BRISEIDA. 10/23: Yesterday, the patient underwent repair of incarcerated umbilical hernia, partial omentectomy, umbilical to me with Dr. Hampton. Patient is postop day #1. She states she is still having some abdominal discomfort. FRACISCO drain in place. Temperature max 100.4, blood pressure 89/51, heart rate 99, pulse ox 97% on 3 L nasal cannula. Patient remains nothing by mouth and IV fluids at 150 mL per hour. Patient has been started on Lovenox 40 mg subcu every 12 hours. Blood sugars are running between 12/21/1946. 10/24: This morning, patient's heart rate has been labile running up to 120 and then back down to 66. She is currently on Lopressor 25 mg twice daily and she has been on Lovenox as well. EKG was done which revealed A. fib with RVR. Lopressor will be increased back to her home dose of 50 mg twice daily. Temperature max 100.2, blood pressure remains low at 90/66, pulse ox 100% on 2 L nasal cannula. Patient is currently nothing by mouth except for ice chips and medications and has been advanced to clear liquids today. Patient does state that she is hungry. She is complaining of left ankle pain which is chronic and will ask orthopedic surgery to evaluate. [facility]. Repeat lab work reveals hemoglobin 10.2, creatinine 0.66, blood sugars running between 113 and 148. Patient has been evaluated by PT and OT with recommendations for subacute rehab. Patient has been at both [facility] and [facility] and seems undecided which should go to. She does have a granddaughter who works at [facility]. Social work updated and will contact BRISEIDA, daughter Bree. She will be resumed on Coumadin at 2 mg tonight and continue Lovenox until INR is therapeutic. 10/25: Patient INR still subtherapeutic at 0.9, patient remain on Lovenox until the INR at least is about 1.75, patient is doing much better fully catheter be taking out today advance PTOT and prepare for rehab tomorrow for another blood work tomorrow as an prepare for her back surgery patient will be seen Dr. Askew later on date 1 week or 10 days before back surgery to do the [place] filter prepare for the surgery. 10/26 patient is doing very well had a bowel movement her INR still subtherapeutic will continue patient on Lovenox, mobility still significantly decrease, hemodynamically is very stable surgical incision looks fine. Patient will be transferred to [facility] rehab today. Review of Systems Constitutional: Reports fatigue, Reports weakness, Denies anorexia, Denies chills, Denies fever, Denies poor appetite Ears, nose, mouth and throat: Denies dysphagia, Denies headache, Denies nasal co ngestion, Denies nasal discharge, Denies sore throat, Denies vertigo Cardiovascular: Denies chest pain, Denies decreased exercise tolerance, Denies dyspnea on exertion, Denies lightheadedness, Denies shortness of breath, Denies syncope Respiratory: Denies cough, Denies cough with sputum, Denies dyspnea, Denies excessive sputum, Denies hemoptysis, Denies home oxygen, Denies respiratory infections, Denies wheezing Gastrointestinal: Reports abdominal discomfort, denies bloating, denies diarrhea, denies loss of appetite, denies nausea, Denies constipation, Denies vomiting Genitourinary: Denies dysuria, Denies hematuria, Denies urgency, Denies urinary frequency Musculoskeletal: Reports gait dysfunction, Reports muscle weakness, Denies myalgias Integumentary: Denies pruritus, Denies rash, Denies wounds Neurological: Reports gait dysfunction, Denies change in mentation, Denies change in speech, Denies numbness, Denies weakness Psychiatric: Denies anxiety, Denies depression Endocrine: Denies fatigue, Denies weight change - Exam Gen: This is an 84-year-old female. Patient is resting in a recliner and appears to be comfortable. Granddaughter and great grandchildren at bedside. HEENT: Head is atraumatic, normocephalic. Pupils equal, round. Sclerae is anicteric. NECK: Supple. No JVD. No lymphadenopathy. No thyromegaly. LUNGS: Clear to auscultation. No wheezes or rhonchi. No intercostal retractions. HEART: Regular rate and rhythm. No murmur. ABDOMEN: Soft. Bowel sounds are present. No masses. Mild generalized abdominal tenderness. Small dressing in place with no breakthrough bleeding. FRACISCO drain with serosanguineous drainage. Hernandez catheter placed draining columba urine. EXTREMITIES: No pedal edema. No calf tenderness. NEUROLOGICAL: Patient is awake, alert and oriented x3. Cranial nerves 2 through 12 are grossly intact. Assessment and Plan Plan: 1. Small bowel obstruction secondary to incarcerated umbilical hernia status post repair, postop day #2. Clear liquids to start today. Continue incentive spirometry to reduce incidence of atelectasis and hospital-acquired pneumonia. Continue Dilaudid or Tylenol for pain, diet will be titrated today patient is doing more physical therapy. For rehab in the next day. 2. 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 Remain on Lovenox as a bridge to warfarin level is therapeutic and prepare for her back surgery might still need to have her [place] filter placement with Dr. Askew one of 2 weeks before back surgery. 3. Acute lactic acidosis and hypovolemic hypotension secondary to surgical problem is much better so far after treatment. 4. Paroxysmal atrial fibrillation. Continue metoprolol increased back to 50 mg twice daily. Patient will be resumed on Coumadin starting tonight at 2 mg and recheck INR in the morning. Continue Lovenox until therapeutic INR. 4. Valvular heart disease of the aortic, mitral and tricuspid with aortic stenosis next field. 5. Hypertension. Hold Lasix, Norvasc. 6. Hyperlipidemia. Hold Zocor. 7. Diabetes mellitus type 2. Hold glipizide. Start NovoLog scale every 6 hours. 8. Spinal stenosis with plan for surgical intervention and an outside facility in the near future. Discussed need to postpone this for greater than 4 weeks. 9. Recurrent depression. Patient is normally on Wellbutrin SR 150 mg twice daily. 10. Coagulopathy secondary to Coumadin use. Patient is status post vitamin K and fresh frozen plasma. 11. Gastroesophageal reflux disease. Protonix IV. Patient has done very well was cleared by general surgery, diet was titrated. Anticoagulation [place] she is remain on Lovenox 120 mg subcutaneous twice a day per hematology recommendation until INR is therapeutic at 2.0 and up we will resume dose of warfarin at home continue INR daily until the INR is above 2.0 then we can stop Lovenox completely. Patient pain is well managed with oral medication. Next line patient be transferred to [facility] rehab today. Patient Condition at Discharge: Serious Plan - Discharge Summary Discharge Rx Participant: No New Discharge Prescriptions: New Enoxaparin [Lovenox] 120 mg SQ Q12HR syringe INSULIN ASPART (NovoLOG) [NovoLOG (formulary)] 0 unit SQ Q6HR vial Continue Simvastatin [Zocor] 10 mg PO HS metFORMIN HCL [Glucophage] 1,000 mg PO AC-BID Metoprolol Tartrate [Lopressor] 50 mg PO BID glipiZIDE [Glucotrol] 5 mg PO HS Potassium Chloride [Klor-Con 20] 20 meq PO DAILY PRN PRN Reason: TAKES WITH LASIX Furosemide [Lasix] 40 mg PO DAILY PRN PRN Reason: Edema amLODIPine [Norvasc] 2.5 mg PO DAILY Omeprazole [PriLOSEC] 20 mg PO DAILY Acetaminophen Tab [Tylenol] 650 mg PO Q6HR PRN tab PRN Reason: Fever And/ Or Pain guaiFENesin [Mucinex] 600 mg PO Q12HR PRN tablet.er PRN Reason: Cough Warfarin Sodium [Coumadin] 1.25 mg PO DAILY@1800 buPROPion HCL [Wellbutrin SR] 150 mg PO BID HYDROcodone/APAP 5-325MG [[place] 5-325] 1 tab PO Q4HR PRN #18 tab PRN Reason: Moderate Pain Discharge Medication List Metoprolol Tartrate [Lopressor] 50 mg PO BID 08/25/17 [History] Simvastatin [Zocor] 10 mg PO HS 08/25/17 [History] glipiZIDE [Glucotrol] 5 mg PO HS 08/25/17 [History] metFORMIN HCL [Glucophage] 1,000 mg PO AC-BID 08/25/17 [History] Furosemide [Lasix] 40 mg PO DAILY PRN 08/19/19 [History] Omeprazole [PriLOSEC] 20 mg PO DAILY 08/19/19 [History] Potassium Chloride [Klor-Con 20] 20 meq PO DAILY PRN 08/19/19 [History] amLODIPine [Norvasc] 2.5 mg PO DAILY 08/19/19 [History] Acetaminophen Tab [Tylenol] 650 mg PO Q6HR PRN tab 08/22/19 [Rx] guaiFENesin [Mucinex] 600 mg PO Q12HR PRN tablet.er 09/25/19 [Rx] Warfarin Sodium [Coumadin] 1.25 mg PO DAILY@1800 10/22/19 [History] buPROPion HCL [Wellbutrin SR] 150 mg PO BID 10/22/19 [History] Enoxaparin [Lovenox] 120 mg SQ Q12HR syringe 10/26/19 [Rx] HYDROcodone/APAP 5-325MG [[place] 5-325] 1 tab PO Q4HR PRN #18 tab 10/26/19 [Rx] INSULIN ASPART (NovoLOG) [NovoLOG (formulary)] 0 unit SQ Q6HR vial 10/26/19 [Rx] Follow up Appointment(s)/Referral(s): Mohamud Hampton MD [Medical Doctor] - 11/07/19 Kinjal Liu MD [Primary Care Provider] - 10/30/19 10:30 am Bhupinder Morales PAC [PHYSICIAN TUNNELING MACHINE OPERATOR] - 11/09/19 1:00 pm (Patient may follow-up with Bhupinder Morales PA-C or Dr. Deniz Sanchez at [facility] in 2 weeks following discharge. ) Activity/Diet/Wound Care/Special Instructions: hernia repair surgery 10/22/19 midline incision dry/intact right lower abdomen incision from FRACISCO drain removal dry/intact hernandez removed 10/25/19 activity as tolerated soft regular diet Weight-bear as tolerated on the left lower extremity Patient may benefit from using a walker to aid in ambulation given her known left lower extremity weakness Discharge Disposition: TRANSFER TO SNF/F
== END 2019-10-26 14:03 | DRG 354 ==
LOC: EC 03:07 → 4MS4W 06:37
PROVIDERS: ADMIT Internal Medicine; ATTEND Internal Medicine
PROC: 30233K1 Transfusion of Nonautologous Frozen Plasma into Peripheral Vein, Percutaneous Approach (ICD-10-PCS; 2019-10-22)
PROC: 0DBU0ZZ Excision of Omentum, Open Approach (ICD-10-PCS; principal; 2019-10-22 10:00)
PROC: 0WQF0ZZ Repair Abdominal Wall, Open Approach (ICD-10-PCS; principal; 2019-10-22 10:00)
DX: K42.0 Umbilical hernia with obstruction, without gangrene (principal); E11.52 Type 2 diabetes mellitus with diabetic peripheral angiopathy with gangrene; E87.2 Acidosis; F33.9 Major depressive disorder, recurrent, unspecified; Z68.42 Body mass index [BMI] 45.0-49.9, adult; E11.41 Type 2 diabetes mellitus with diabetic mononeuropathy; E78.5 Hyperlipidemia, unspecified; E86.1 Hypovolemia; G89.29 Other chronic pain; I10 Essential (primary) hypertension; I35.0 Nonrheumatic aortic (valve) stenosis; I48.0 Paroxysmal atrial fibrillation; J44.9 Chronic obstructive pulmonary disease, unspecified; K21.9 Gastro-esophageal reflux disease without esophagitis; M81.0 Age-related osteoporosis without current pathological fracture; R29.6 Repeated falls; T45.515A Adverse effect of anticoagulants, initial encounter; Z79.01 Long term (current) use of anticoagulants; Z79.84 Long term (current) use of oral hypoglycemic drugs; Z79.899 Other long term (current) drug therapy; Z80.9 Family history of malignant neoplasm, unspecified; Z86.711 Personal history of pulmonary embolism; Z86.718 Personal history of other venous thrombosis and embolism; Z87.01 Personal history of pneumonia (recurrent); Z91.81 History of falling; Z98.42 Cataract extraction status, left eye; Z98.41 Cataract extraction status, right eye; Z96.1 Presence of intraocular lens; Z96.612 Presence of left artificial shoulder joint; Z96.653 Presence of artificial knee joint, bilateral; Z88.1 Allergy status to other antibiotic agents; Z88.0 Allergy status to penicillin; E66.01 Morbid (severe) obesity due to excess calories; Z90.49 Acquired absence of other specified parts of digestive tract; R79.1 Abnormal coagulation profile
CPT/HCPCS: 36415; 74177; 80053; 81001; 82150; 83605; 83690; 84484; 85025; 85027; 85610; 85730; 86850; 86900; 86901; 88302; 93005; 96361; 96374; 96375; 99285

== ENCOUNTER 2019-12-13 11:30 | Inpatient (IN) | payer MEDICARE ==
[2019-12-13] MEDS ORDERED: SODIUM CHLORIDE 0.9% 500 ML 500 ML IV STA (11:35)
--- NOTE | 2019-12-13 11:58 | ED ---
General Adult HPI - General Chief complaint: Weakness Stated complaint: lethargy Source: patient, EMS, RN notes reviewed, old records reviewed Mode of arrival: EMS Limitations: no limitations - History of Present Illness Initial comments: 84-year-old female presented from the senior care for evaluation of increased lethargy, weight gain. Patient is in the senior care postop lumbar laminectomy which are was approximately 2 weeks ago. She has hospital stay for approximately one week and has been in the senior care for one week. She's had increased weakness, decreased urine output and weight gain over this time. She has history of congestive heart failure, atrial fibrillation. According to her daughter who is at bedside she had issues with A. fib and hypotension prior to discharge. She has been running a very low blood pressure over the past 1 week 80s to 90s systolic. Patient herself has no complaints. She states she was told to come to the emergency department by the senior care staff. No reported fever. She reports some vomiting which occurred several days ago but none in the past 24-48 hours. - Related Data Home Medications Medication Instructions Recorded Confirmed Simvastatin [Zocor] 10 mg PO HS@209908/25/17 12/13/19 glipiZIDE [Glucotrol] 5 mg PO DAILY@0800 08/25/17 12/13/19 metFORMIN HCL [Glucophage] 1,000 mg PO DAILY@0800 08/25/17 12/13/19 Furosemide [Lasix] 40 mg PO BID@0800,17008/19/19 12/13/19 Omeprazole [PriLOSEC] 20 mg PO DAILY@0600 08/19/19 12/13/19 Potassium Chloride [Klor-Con 20] 20 meq PO DAILY@169908/19/19 12/13/19 buPROPion HCL [Wellbutrin SR] 150 mg PO BID@0800,2100 10/22/19 12/13/19 Acetaminophen Tab [Tylenol] 650 mg PO Q4H PRN 12/13/19 12/13/19 Apixaban [Eliquis] 5 mg PO BID@0800,17012/13/19 12/13/19 Bisacodyl [Dulcolax] 10 mg RECTAL DAILY PRN 12/13/19 12/13/19 Cefpodoxime Proxetil [Vantin] 100 mg PO BID@0800,1700 12/13/19 12/13/19 Digoxin [Lanoxin] 125 mcg PO DAILY@0600 12/13/19 12/13/19 Diltiazem HCl [Cartia Xt] 120 mg PO DAILY@0800 12/13/19 12/13/19 Ensure Clear 1 can PO BID@0800,1700 12/13/19 12/13/19 Heparin Sodium,Porcine [Heparin 7,500 unit SQ Q8HR@0600,1400,2200 12/13/19 12/13/19 Sodium] INSULIN ASPART (NovoLOG) [NovoLOG See Protocol SQ ACHS 12/13/19 12/13/19 (formulary)] Ipratropium-Albuterol Nebulize 3 ml INHALATION RT-TID PRN 12/13/19 12/13/19 [Duoneb 0.5 mg-3 mg/3 ml Soln] Lactulose 20 gm PO BID@0800,1700 12/13/19 12/13/19 Lasix 10mg/Ml 60 mg IM ONCE PRN 12/13/19 12/13/19 Lidocaine 4% Patch 1 patch TOPICAL DAILY@0800 12/13/19 12/13/19 Magnesium Hydroxide [Milk of 2,400 mg PO DAILY PRN 12/13/19 12/13/19 Magnesia] Magnesium Oxide [Mag-Ox] 400 mg PO BID@0800,1700 12/13/19 12/13/19 Methocarbamol [Robaxin] 750 mg PO Q8H PRN 12/13/19 12/13/19 Metoclopramide [Reglan] 5 mg PO QID PRN 12/13/19 12/13/19 Metoprolol Tartrate [Lopressor] 100 mg PO BID@0800,209912/13/19 12/13/19 Mirtazapine 7.5 mg PO HS@209912/13/19 12/13/19 Na Phos,M-B/Na Phos,Di-Ba [Fleet 133 ml RECTAL DAILY PRN 12/13/19 12/13/19 Adult] Sennosides-Docusate Sodium 1 tab PO BID@0800,1700 12/13/19 12/13/19 [Senokot-S] traMADol HCL 50 mg PO Q4H PRN 12/13/19 12/13/19 Previous Rx's Medication Instructions Recorded guaiFENesin [Mucinex] 600 mg PO Q12HR PRN tablet.er 09/25/19 Allergies Allergy/AdvReac Type Severity Reaction Status Date / Time Penicillins Allergy Rash/Hives Verified 12/13/19 11:51 azithromycin AdvReac Dyspnea & Verified 12/13/19 11:51 nausea ciprofloxacin [From Cipro] AdvReac Dyspnea & Verified 12/13/19 11:51 nausea Review of Systems ROS Statement: Those systems with pertinent positive or pertinent negative responses have been documented in the HPI. ROS Other: All systems not noted in ROS Statement are negative. 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 Morbid obesity, mass on right kidney, cellulitis BLE, fall at home, history of bilateral total knee replacements approximately [address] Augustin. History of spinal stenosis and is scheduled to have surgery at another facility in the near future History of Any Multi-Drug Resistant Organisms: None Reported Past Surgical History: Breast Surgery, Cholecystectomy, Joint Replacement, Orthopedic Surgery Additional Past Surgical History / Comment(s): thelma knee replac; L shoulder replac.; carpel tunnel vaginal duct cyst; benign breast surg; cataracts; retinal repair left eye. BAck surgery Past Anesthesia/Blood Transfusion Reactions: No Reported Reaction Past Psychological History: No Psychological Hx Reported Smoking Status: Never smoker Past Alcohol Use History: None Reported Past Drug Use History: None Reported - Past Family History Father Family Medical History: Deep Vein Thrombosis (DVT) Son(s) Family Medical History: Deep Vein Thrombosis (DVT) Mother Family Medical History: Cancer Additional Family Medical History / Comment(s): Mother had cancer in her back. Daughter(s) Family Medical History: Blood Disorder Additional Family Medical History / Comment(s): Daughter has MTHFR factor and pt's grandson has lyme factor V and grand daughter has MTHFR. General Exam Limitations: no limitations General appearance: lethargic Head exam: Present: atraumatic, normocephalic Eye exam: Present: normal appearance, PERRL ENT exam: Present: mucous membranes dry Neck exam: Present: normal inspection. Absent: tenderness, meningismus Respiratory exam: Present: respiratory distress, rales, decreased breath sounds Cardiovascular Exam: Present: regular rate, irregular rhythm GI/Abdominal exam: Present: soft. Absent: distended, tenderness, guarding Extremities exam: Present: pedal edema, other (Chronic venous stasis) Back exam: Present: other (Lumbar incision is clean dry and intact, no signs of infection, no erythema, no fluctuance, no induration) Neurological exam: Present: alert, oriented X3, CN II-XII intact. Absent: motor sensory deficit Psychiatric exam: Present: normal affect, normal mood Skin exam: Present: warm, dry. Absent: cyanosis, diaphoretic Course Vital Signs 12/13/19 12/13/19 12/13/19 11:30 13:30 14:15 Temperature 97.3 F L Pulse Rate 114 H 75 80 Respiratory 14 18 16 Rate Blood Pressure 93/78 101/89 92/72 O2 Sat by Pulse 100 85 L Oximetry 12/13/19 15:24 Temperature 97.6 F Pulse Rate 64 Respiratory 19 Rate Blood Pressure 102/69 O2 Sat by Pulse 100 Oximetry EKG Findings - EKG Comments: EKG Findings:: EKG: Atrial fibrillation, LVH no ST segment elevation, T-wave inversion and minimal ST segment depression in the lateral precordial leads. Rate of 85, QRS duration 90, QTC 373 Medical Decision Making - Medical Decision Making 85-year-old female presenting with lethargy, dyspnea and weight gain. Patient's is edematous throughout and has gained 7 pounds over the past 24 hours according to her daughter. She has decreased air entry bilaterally. She's not hypoxic. Chest x-ray negative for focal pneumonia or jessy pulmonary edema. She has leukocytosis 16.5 and rare bacteria with 9 white cells on urinalysis. She has a mildly elevated BNP at 1430. I suspect she is intravascularly depleted but nobody overloaded. Given Lasix in the emergency department with improved urine output. She is given a dose of antibiotics as well as emergency department. I discussed case with covering physician Dr. Alonzo, will admit. Cardiology placed on consult. - Lab Data Result diagrams: 12/13/19 12:10 12/13/19 12:10 Lab Results 01/23/20 01/23/20 01/23/20 Range/Units 12:10 12:10 12:10 WBC 16.5 H (3.8-10.6) k/uL RBC 4.27 (3.80-5.40) m/uL Hgb 10.9 L (11.4-16.0) gm/dL Hct 35.1 (34.0-46.0) % MCV 82.3 (80.0-100.0) fL MCH 25.5 (25.0-35.0) pg MCHC 31.0 (31.0-37.0) g/dL RDW 18.3 H (11.5-15.5) % Plt Count 261 (150-450) k/uL Neutrophils % 83 % Lymphocytes % 10 % Monocytes % 4 % Eosinophils % 1 % Basophils % 1 % Neutrophils # 13.7 H (1.3-7.7) k/uL Lymphocytes # 1.7 (1.0-4.8) k/uL Monocytes # 0.7 (0-1.0) k/uL Eosinophils # 0.2 (0-0.7) k/uL Basophils # 0.1 (0-0.2) k/uL Hypochromasia Marked Anisocytosis Slight PT (9.0-12.0) sec INR (<1.2) APTT (22.0-30.0) sec VBG pH (7.31-7.41) VBG pCO2 (37-51) mmHg VBG HCO3 (24-28) mmol/L Sodium 134 L (137-145) mmol/L Potassium 5.1 (3.5-5.1) mmol/L Chloride 100 (98-107) mmol/L Carbon Dioxide 21 L (22-30) mmol/L Anion Gap 13 mmol/L BUN 45 H (7-17) mg/dL Creatinine 1.15 H (0.52-1.04) mg/dL Est GFR (CKD-EPI)AfAm 51 (>60 ml/min/1.73 sqM) Est GFR (CKD-EPI)NonAf 45 (>60 ml/min/1.73 sqM) Glucose 141 H (74-99) mg/dL Plasma Lactic Acid Afshin (0.7-2.0) mmol/L Calcium 8.6 (8.4-10.2) mg/dL Magnesium 2.1 (1.6-2.3) mg/dL Total Bilirubin 0.6 (0.2-1.3) mg/dL AST 22 (14-36) U/L ALT 11 (4-34) U/L Alkaline Phosphatase 107 (38-126) U/L NT-Pro-B Natriuret Pep 1430 pg/mL Total Protein 6.3 (6.3-8.2) g/dL Albumin 2.9 L (3.5-5.0) g/dL Urine Color Urine Appearance (Clear) Urine pH (5.0-8.0) Ur Specific [place] (1.001-1.035) Urine Protein (Negative) Urine Glucose (UA) (Negative) Urine Ketones (Negative) Urine Blood (Negative) Urine Nitrite (Negative) Urine Bilirubin (Negative) Urine Urobilinogen (<2.0) mg/dL Ur Leukocyte Esterase (Negative) Urine RBC (0-5) /hpf Urine WBC (0-5) /hpf Ur Squamous Epith Cells (0-4) /hpf Urine Bacteria (None) /hpf Hyaline Casts (0-2) /lpf Urine Mucus (None) /hpf Urine Yeast (Budding) (None) /hpf Influenza Type A RNA (Not Detectd) Influenza Type B (PCR) (Not Detectd) 12/13/19 12/13/19 12/13/19 Range/Units 12:10 12:10 12:10 WBC (3.8-10.6) k/uL RBC (3.80-5.40) m/uL Hgb (11.4-16.0) gm/dL Hct (34.0-46.0) % MCV (80.0-100.0) fL MCH (25.0-35.0) pg MCHC (31.0-37.0) g/dL RDW (11.5-15.5) % Plt Count (150-450) k/uL Neutrophils % % Lymphocytes % % Monocytes % % Eosinophils % % Basophils % % Neutrophils # (1.3-7.7) k/uL Lymphocytes # (1.0-4.8) k/uL Monocytes # (0-1.0) k/uL Eosinophils # (0-0.7) k/uL Basophils # (0-0.2) k/uL Hypochromasia Anisocytosis PT 9.6 (9.0-12.0) sec INR 0.9 (<1.2) APTT 25.7 (22.0-30.0) sec VBG pH (7.31-7.41) VBG pCO2 (37-51) mmHg VBG HCO3 (24-28) mmol/L Sodium (137-145) mmol/L Potassium (3.5-5.1) mmol/L Chloride (98-107) mmol/L Carbon Dioxide (22-30) mmol/L Anion Gap mmol/L BUN (7-17) mg/dL Creatinine (0.52-1.04) mg/dL Est GFR (CKD-EPI)AfAm (>60 ml/min/1.73 sqM) Est GFR (CKD-EPI)NonAf (>60 ml/min/1.73 sqM) Glucose (74-99) mg/dL Plasma Lactic Acid Afshin (0.7-2.0) mmol/L Calcium (8.4-10.2) mg/dL Magnesium (1.6-2.3) mg/dL Total Bilirubin (0.2-1.3) mg/dL AST (14-36) U/L ALT (4-34) U/L Alkaline Phosphatase (38-126) U/L NT-Pro-B Natriuret Pep pg/mL Total Protein (6.3-8.2) g/dL Albumin (3.5-5.0) g/dL Urine Color Yellow Urine Appearance Cloudy H (Clear) Urine pH 5.0 (5.0-8.0) Ur Specific [place] 1.019 (1.001-1.035) Urine Protein Trace H (Negative) Urine Glucose (UA) Negative (Negative) Urine Ketones Negative (Negative) Urine Blood Small H (Negative) Urine Nitrite Negative (Negative) Urine Bilirubin Negative (Negative) Urine Urobilinogen <2.0 (<2.0) mg/dL Ur Leukocyte Esterase Small H (Negative) Urine RBC 18 H (0-5) /hpf Urine WBC 9 H (0-5) /hpf Ur Squamous Epith Cells 5 H (0-4) /hpf Urine Bacteria Rare H (None) /hpf Hyaline Casts 3 H (0-2) /lpf Urine Mucus Moderate H (None) /hpf Urine Yeast (Budding) Occasional H (None) /hpf Influenza Type A RNA Not Detected (Not Detectd) Influenza Type B (PCR) Not Detected (Not Detectd) 12/13/19 12/13/19 Range/Units 12:10 12:10 WBC (3.8-10.6) k/uL RBC (3.80-5.40) m/uL Hgb (11.4-16.0) gm/dL Hct (34.0-46.0) % MCV (80.0-100.0) fL MCH (25.0-35.0) pg MCHC (31.0-37.0) g/dL RDW (11.5-15.5) % Plt Count (150-450) k/uL Neutrophils % % Lymphocytes % % Monocytes % % Eosinophils % % Basophils % % Neutrophils # (1.3-7.7) k/uL Lymphocytes # (1.0-4.8) k/uL Monocytes # (0-1.0) k/uL Eosinophils # (0-0.7) k/uL Basophils # (0-0.2) k/uL Hypochromasia Anisocytosis PT (9.0-12.0) sec INR (<1.2) APTT (22.0-30.0) sec VBG pH 7.35 (7.31-7.41) VBG pCO2 41 (37-51) mmHg VBG HCO3 22 L (24-28) mmol/L Sodium (137-145) mmol/L Potassium (3.5-5.1) mmol/L Chloride (98-107) mmol/L Carbon Dioxide (22-30) mmol/L Anion Gap mmol/L BUN (7-17) mg/dL Creatinine (0.52-1.04) mg/dL Est GFR (CKD-EPI)AfAm (>60 ml/min/1.73 sqM) Est GFR (CKD-EPI)NonAf (>60 ml/min/1.73 sqM) Glucose (74-99) mg/dL Plasma Lactic Acid Afshin 2.3 H* (0.7-2.0) mmol/L Calcium (8.4-10.2) mg/dL Magnesium (1.6-2.3) mg/dL Total Bilirubin (0.2-1.3) mg/dL AST (14-36) U/L ALT (4-34) U/L Alkaline Phosphatase (38-126) U/L NT-Pro-B Natriuret Pep pg/mL Total Protein (6.3-8.2) g/dL Albumin (3.5-5.0) g/dL Urine Color Urine Appearance (Clear) Urine pH (5.0-8.0) Ur Specific [place] (1.001-1.035) Urine Protein (Negative) Urine Glucose (UA) (Negative) Urine Ketones (Negative) Urine Blood (Negative) Urine Nitrite (Negative) Urine Bilirubin (Negative) Urine Urobilinogen (<2.0) mg/dL Ur Leukocyte Esterase (Negative) Urine RBC (0-5) /hpf Urine WBC (0-5) /hpf Ur Squamous Epith Cells (0-4) /hpf Urine Bacteria (None) /hpf Hyaline Casts (0-2) /lpf Urine Mucus (None) /hpf Urine Yeast (Budding) (None) /hpf Influenza Type A RNA (Not Detectd) Influenza Type B (PCR) (Not Detectd) Disposition Clinical Impression: LEORA (acute kidney injury), Chronic acquired lymphedema, CHF (congestive heart failure), Pneumonia Disposition: ADMITTED IP TO THIS HOSP Condition: Stable Is patient prescribed a controlled substance at d/c from ED?: No Referrals: Kinjal Liu MD [Primary Care Provider] - 1-2 days Decision to Admit Reason: Admit from EC Decision Date: 12/13/19 Decision Time: 16:00
--- NOTE | 2019-12-13 12:33 | XR ---
EXAMINATION TYPE: XR chest 1V portable DATE OF EXAM: 12/13/2019 COMPARISON: Prior chest x-ray 08/20/2019 HISTORY: Weakness TECHNIQUE: Single frontal view of the chest is obtained. FINDINGS: Patient is rotated. There are overlying cardiac leads. Postop change noted to the left angelique ulder. Aorta is dense. There is no focal air space opacity, pleural effusion, or pneumothorax seen. The cardiac silhouette size is within normal limits, size thought to be accentuated due to rotation. The osseous structures are intact. IMPRESSION: No acute process.
[2019-12-13 12:40] LABS: VBG PH 7.35 (7.31-7.41)
[2019-12-13 12:50] LABS: Appearance,Urine Cloudy (Clear); Bacteria,Urine Rare /hpf; Bilirubin,Urine Negative (Negative); Blood,Urine Small (Negative); Budding Yeast,Urine Occasional /hpf; Color,Urine Yellow; Glucose,Urine (UA) Negative (Negative); Hyaline Casts,Urine 3 /lpf (0-2); Ketones,Urine Negative (Negative); Leukocyte Esterase,Urine Small (Negative); Mucus,Urine Moderate /hpf; Nitrite,Urine Negative (Negative); Protein,Urine Trace (Negative); RBC,Urine 18 /hpf (0-5); Specific Gravity,Urine 1.019 (1.001-1.035); Squamous Epithelial Cell,Urine 5 /hpf (0-4); Urobilinogen,Urine <2.0 mg/dL (<2.0); WBC,Urine 9 /hpf (0-5)
[2019-12-13 12:52] LABS: INR 0.9 (<1.2); Partial Thromboplastin Time 25.7 sec (22.0-30.0); Prothrombin Time 9.6 sec (9.0-12.0)
[2019-12-13 13:02] LABS: Albumin 2.9 g/dL (3.5-5.0); Anisocytosis Slight; Basophils # (A) 0.1 k/uL (0-0.2); Basophils % (A) 1 %; Calcium 8.6 mg/dL (8.4-10.2); Eosinophils # (A) 0.2 k/uL (0-0.7); Eosinophils % (A) 1 %; HCT 35.1 % (34.0-46.0); HGB 10.9 gm/dL (11.4-16.0); Hypochromasia Marked; Lymphocytes # (A) 1.7 k/uL (1.0-4.8); Lymphocytes % (A) 10 %; MCH 25.5 pg (25.0-35.0); MCV 82.3 fL (80.0-100.0); Magnesium 2.1 mg/dL (1.6-2.3); Mean Platelet Volume 9.7; Monocytes # (A) 0.7 k/uL (0-1.0); Monocytes % (A) 4 %; Neutrophils # (A) 13.7 k/uL (1.3-7.7); Neutrophils % (A) 83 %; Platelet Count 261 k/uL (150-450); Potassium 5.1 mmol/L (3.5-5.1); RBC 4.27 m/uL (3.80-5.40); RDW 18.3 % (11.5-15.5); Total Bilirubin 0.6 mg/dL (0.2-1.3); Total Protein 6.3 g/dL (6.3-8.2); WBC 16.5 k/uL (3.8-10.6)
[2019-12-13] MEDS ORDERED: cefTRIAXone IN SWFI 1,000 MG/10 ML SYRINGE IVP STA (14:35)
[2019-12-13] MEDS ORDERED: FUROSEMIDE 10 MG/ML 2 ML VIAL IV ONE (14:36)
[2019-12-13] MEDS ORDERED: ACETAMINOPHEN TAB 500 MG TAB PO STA (15:07)
[2019-12-13] MEDS ORDERED: ACETAMINOPHEN TAB 325 MG TAB PO PRN (15:56)
[2019-12-13] MEDS ORDERED: NALOXONE 0.4 MG/ML 1 ML VIAL IV PRN (15:56)
[2019-12-13] MEDS ORDERED: traMADol 50 MG TAB PO PRN (17:39)
[2019-12-13] MEDS ORDERED: guaiFENesin 600 MG TABLET.ER PO PRN (17:39)
[2019-12-13] MEDS ORDERED: MAGNESIUM HYDROXIDE 2,400 MG/10 ML CUP PO PRN (17:39)
[2019-12-13] MEDS ORDERED: IPRATROPIUM-ALBUTEROL 3 ML NEB INHALATION PRN (17:39)
[2019-12-13] MEDS ORDERED: BISACODYL 10 MG SUPP RECTAL PRN (17:39)
[2019-12-13] MEDS ORDERED: HEPARIN SODIUM,PORCINE 5,000 UNIT/ML 1 ML VIAL SQ SCH (21:00)
[2019-12-13] MEDS: buPROPion SR 150 MG TABLET.ER PO SCH (21:52)
[2019-12-13] MEDS: METOPROLOL TARTRATE 50 MG TAB PO SCH (21:52)
[2019-12-13] MEDS: MIRTAZAPINE 15 MG TAB PO SCH (21:53)
[2019-12-13] MEDS: ATORVASTATIN 10 MG TAB PO SCH (21:53)
[2019-12-14] MEDS: PANTOPRAZOLE 40 MG TABLET PO SCH (05:24)
[2019-12-14 06:13] LABS: Glucose,Whole Blood 78 mg/dL (75-99)
[2019-12-14 07:56] LABS: Albumin 2.8 g/dL (3.5-5.0); Calcium 8.4 mg/dL (8.4-10.2); Potassium 5.2 mmol/L (3.5-5.1); Total Bilirubin 0.6 mg/dL (0.2-1.3); Total Protein 6.3 g/dL (6.3-8.2)
[2019-12-14] MEDS ORDERED: NON FORMULARY DRUG (Ensure Clear 1 CAN) PO SCH (08:00)
[2019-12-14 08:19] LABS: Anisocytosis Slight; Basophils # (A) 0.1 k/uL (0-0.2); Basophils % (A) 1 %; Eosinophils # (A) 0.2 k/uL (0-0.7); Eosinophils % (A) 1 %; HCT 32.9 % (34.0-46.0); HGB 10.2 gm/dL (11.4-16.0); Hypochromasia Marked; Lymphocytes # (A) 1.6 k/uL (1.0-4.8); Lymphocytes % (A) 10 %; MCH 25.6 pg (25.0-35.0); MCHC 30.9 g/dL (31.0-37.0); MCV 82.9 fL (80.0-100.0); Mean Platelet Volume 10.7; Monocytes # (A) 0.7 k/uL (0-1.0); Monocytes % (A) 5 %; Neutrophils # (A) 12.4 k/uL (1.3-7.7); Neutrophils % (A) 82 %; Platelet Count 221 k/uL (150-450); RBC 3.97 m/uL (3.80-5.40); RDW 18.3 % (11.5-15.5); WBC 15.1 k/uL (3.8-10.6)
[2019-12-14] MEDS: buPROPion SR 150 MG TABLET.ER PO SCH ×2 (09:05→21:41)
[2019-12-14] MEDS: METOPROLOL TARTRATE 50 MG TAB PO SCH ×2 (09:05→21:40)
[2019-12-14] MEDS: MAGNESIUM OXIDE 400 MG TAB PO SCH ×2 (09:05→16:35)
[2019-12-14] MEDS: DIGOXIN 125 MCG TAB PO SCH (09:06)
[2019-12-14] MEDS: LACTULOSE 20 GM/30 ML CUP PO SCH ×2 (09:06→16:35)
[2019-12-14] MEDS: APIXABAN 5 MG TAB PO SCH ×2 (09:06→16:35)
[2019-12-14] MEDS: DILTIAZEM CD 120 MG CAP.ER.24H PO SCH (09:06)
[2019-12-14 12:16] LABS: Glucose,Whole Blood 88 mg/dL (75-99)
--- NOTE | 2019-12-14 12:27 | CT ---
CT CHEST FOR PULMONARY EMBOLISM. EXAMINATION TYPE: CT angio chest DATE OF EXAM: 12/14/2019 INDICATION: Shortness of breath. CT DLP: 545.3 mGycm, Automated exposure control for dose reduction was used. CONTRAST: Patient injected with 80 mL of Isovue 370. COMPARISON: 08/20/2019 TECHNIQUE: CT of the chest is performed on a spiral scan at 2 mm thick sections. Study is performed with intravenous contrast timed for evaluation for pulmonary embolism. This will limit additional po rtions of the evaluation. 3-D MIP images reconstructed by the technologist are reviewed on the compu ter in the coronal and sagittal planes. FINDINGS: Right upper lobe pulmonary emboli are identified. No mediastinal or hilar adenopathy enlarged by CT criteria is evident. The ascending aorta diameter at the level of the main pulmonary artery is 4.0 cm. The main pulmonary artery diameter at the bifur cation is 3.4 cm. Coronary artery calcification is likely present. Some pleural calcification is present. There is a soft tissue density within the posterior left lung base measuring 1.6 cm. Series 401 image 116. Atelectasis and neoplasm are not excluded. Limited CT section through the upper abdomen are unremarkable. IMPRESSIONS: 1. Right upper lobe pulmonary emboli. 2. Density within the posterior left lung base is nonspecific. Neoplasm or atelectasis should be cons idered. A Red level critical message alert has been initiated for Robert Alonzo MD via the [employer] Critical Results System on 12/14/2019 12:23 PM. This message alert has been sent to Robert Alonzo MD via the preferences provided by the clinician for the receipt of Radiology Critical Findings. [employer] e ID [id number].
[2019-12-14] MEDS: FUROSEMIDE 10 MG/ML 2 ML VIAL IV SCH ×2 (12:47→21:40)
[2019-12-14] MEDS: MIDODRINE 5 MG TAB PO SCH ×2 (12:48→16:35)
[2019-12-14] MEDS ORDERED: CLINDAMYCIN 600 MG in DEXTROSE 5% IN WATER 50 ML IVPB STA ×2 (12:49)
--- NOTE | 2019-12-14 13:02 | P.HPIM ---
History of Present Illness H&P Date: 12/14/19 Chief Complaint: Weakness, loss of appetite, edema This is an 84-year-old female patient of Dr. 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 Patient had a recent hospitalization in October for small bowel obstruction secondary to incarcerated umbilical hernia status post repair of the hernia with resolution of the bowel obstruction. Following surgery, patient was discharge to [facility] for subacute rehab. Patient subsequently underwent laminectomy L1 through L4 at [facility] on November 30. Just prior to surgery, patient was found to have new DVT and an IVC filter was placed on November 30 just prior to her laminectomy. Patient stayed in the hospital for one week and then was discharged back to [facility]. Her family states that she has gained a total of 28 pounds since she left [facility] for her surgery. Patient has had no appetite and eating very little for the past 2 weeks. She has also been sleeping most of the day and night for the past 2 weeks. Patient complains of some shortness of breath. She has had difficulty with uncontrolled A. fib from Tuesday to Tuesday of this week as patient's blood pressure was low and it was difficult managing her medications. Lasix was also causing her blood pressure to lower. Yesterday patient started not voiding. There has also been concerns about mental status changes on and off over this period of time. Patient has been on oxygen since surgery November 30. Patient was placed on heparin subcu following laminectomy and was scheduled to start eliquis today. Patient was brought into [facility] emergency center by ambulance. She was found to be afebrile. EKG was a atrial fibrillation with T-wave inversion and ST depression. Heart rate running in 80s to 114. Blood pressure initially 93/78. WBC 16.5, hemoglobin 10.9, sodium 134, BUN 45 and creatinine 1.15, CO2 21, blood sugar 141. ProBNP 1430, albumin 2.9, influenza and 10 seeing negative. Urinalysis cloudy, esterase small, bacteria rare, blood small. Lactic acid 2.3. Chest x-ray shows no acute process. Patient was given 1 dose of IV Lasix and antibiotics in the emergency center. Patient admitted to the cardiac stepdown unit and cardiology consult in place. Patient's daughter Bree Feng is POA. Review of Systems Constitutional: Reports anorexia, Reports fatigue, Reports lethargy, Reports malaise, Reports poor appetite, Reports weakness, Reports weight gain, Denies chills, Denies fever Eyes: denies blurred vision, denies pain Ears, nose, mouth and throat: Denies dysphagia, Denies headache, Denies nasal congestion, Denies nasal discharge, Denies sore throat, Denies vertigo Cardiovascular: Reports edema, Reports leg edema, Denies chest pain, Denies shortness of breath, Denies syncope Respiratory: Reports dyspnea, Reports home oxygen, Denies cough, Denies cough with sputum, Denies excessive sputum, Denies hemoptysis, Denies respiratory infections, Denies wheezing Gastrointestinal: Reports loss of appetite, Denies abdominal pain, Denies diarrh ea, Denies nausea, Denies vomiting Genitourinary: Reports as per HPI, Denies dysuria, Denies urgency, Denies urinary frequency Musculoskeletal: Reports muscle weakness, Denies frequent falls, Denies gait dysfunction, Denies myalgias Integumentary: Reports wounds, Denies pruritus, Denies rash Neurological: Reports change in mentation, Reports weakness, Denies change in speech, Denies seizures Psychiatric: Reports change in sleep habits, Denies anxiety, Denies depression Endocrine: Denies fatigue, Denies weight change Past Medical History Past Medical History: Blood Disorder, Diabetes Mellitus, Deep Vein Thrombosis (DVT), GERD/Reflux, Hyperlipidemia, Hypertension, Osteoarthritis (OA), Pneumonia, Pulmonary Embolus (PE), Renal Disease Additional Past Medical History / Comment(s): Hx of PE & DVT over 11 yrs ago. Morbid obesity, mass on right kidney, cellulitis BLE, fall at home, history of bilateral total knee replacements approximately [address] Augustin, spinal stenosis status post laminectomy History of Any Multi-Drug Resistant Organisms: None Reported Past Surgical History: Breast Surgery, Cholecystectomy, Joint Replacement, Orthopedic Surgery Additional Past Surgical History / Comment(s): thelma knee replac; L shoulder replac.; carpel tunnel vaginal duct cyst; benign breast surg; cataracts; retinal repair left eye. BAck surgery, hernia repair Past Anesthesia/Blood Transfusion Reactions: No Reported Reaction Past Psychological History: No Psychological Hx Reported Additional Psychological History / Comment(s): October 2019. Smoking Status: Never smoker Past Alcohol Use History: None Reported Past Drug Use History: None Reported - Past Family History Father Family Medical History: Deep Vein Thrombosis (DVT) Son(s) Family Medical History: Deep Vein Thrombosis (DVT) Mother Family Medical History: Cancer Additional Family Medical History / Comment(s): Mother had cancer in her back. Daughter(s) Family Medical History: Blood Disorder Additional Family Medical History / Comment(s): Daughter has MTHFR factor and pt's grandson has lyme factor V and grand daughter has MTHFR. Medications and Allergies Home Medications Medication Instructions Recorded Confirmed Type Simvastatin [Zocor] 10 mg PO HS@2100 08/25/17 12/13/19 History glipiZIDE [Glucotrol] 5 mg PO DAILY@0800 08/25/17 12/13/19 History metFORMIN HCL [Glucophage] 1,000 mg PO DAILY@0800 08/25/17 12/13/19 History Furosemide [Lasix] 40 mg PO BID@0800,1700 08/19/19 12/13/19 History Omeprazole [PriLOSEC] 20 mg PO DAILY@0600 08/19/19 12/13/19 History Potassium Chloride [Klor-Con 20] 20 meq PO DAILY@169908/19/19 12/13/19 History guaiFENesin [Mucinex] 600 mg PO Q12HR PRN tablet.er 09/25/19 12/13/19 Rx buPROPion HCL [Wellbutrin SR] 150 mg PO BID@0800,2100 10/22/19 12/13/19 History Acetaminophen Tab [Tylenol] 650 mg PO Q4H PRN 12/13/19 12/13/19 History Apixaban [Eliquis] 5 mg PO BID@0800,1700 12/13/19 12/13/19 History Bisacodyl [Dulcolax] 10 mg RECTAL DAILY PRN 12/13/19 12/13/19 History Cefpodoxime Proxetil [Vantin] 100 mg PO BID@0800,1700 12/13/19 12/13/19 History Digoxin [Lanoxin] 125 mcg PO DAILY@0600 12/13/19 12/13/19 History Diltiazem HCl [Cartia Xt] 120 mg PO DAILY@0800 12/13/19 12/13/19 History Ensure Clear 1 can PO BID@0800,1700 12/13/19 12/13/19 History Heparin Sodium,Porcine [Heparin 7,500 unit SQ Q8HR@0600,1400,2200 12/13/19 12/13/19 History Sodium] INSULIN ASPART (NovoLOG) [NovoLOG See Protocol SQ ACHS 12/13/19 12/13/19 History (formulary)] Ipratropium-Albuterol Nebulize 3 ml INHALATION RT-TID PRN 12/13/19 12/13/19 History [Duoneb 0.5 mg-3 mg/3 ml Soln] Lactulose 20 gm PO BID@0800,1700 12/13/19 12/13/19 History Lasix 10mg/Ml 60 mg IM ONCE PRN 12/13/19 12/13/19 History Lidocaine 4% Patch 1 patch TOPICAL DAILY@0800 12/13/19 12/13/19 History Magnesium Hydroxide [Milk of 2,400 mg PO DAILY PRN 12/13/19 12/13/19 History Magnesia] Magnesium Oxide [Mag-Ox] 400 mg PO BID@0800,1700 12/13/19 12/13/19 History Methocarbamol [Robaxin] 750 mg PO Q8H PRN 12/13/19 12/13/19 History Metoclopramide [Reglan] 5 mg PO QID PRN 12/13/19 12/13/19 History Metoprolol Tartrate [Lopressor] 100 mg PO BID@0800,2100 12/13/19 12/13/19 History Mirtazapine 7.5 mg PO HS@209912/13/19 12/13/19 History Na Phos,M-B/Na Phos,Di-Ba [Fleet 133 ml RECTAL DAILY PRN 12/13/19 12/13/19 History Adult] Sennosides-Docusate Sodium 1 tab PO BID@0800,1700 12/13/19 12/13/19 History [Senokot-S] traMADol HCL 50 mg PO Q4H PRN 12/13/19 12/13/19 History Allergies Allergy/AdvReac Type Severity Reaction Status Date / Time Penicillins Allergy Rash/Hives Verified 12/13/19 11:51 azithromycin AdvReac Dyspnea & Verified 12/13/19 11:51 nausea ciprofloxacin [From Cipro] AdvReac Dyspnea & Verified 12/13/19 11:51 nausea Physical Exam Vitals: Vital Signs Temp Pulse Pulse Resp BP BP Pulse Ox 12/14/19 11:29 80 12/14/19 11:15 76 12/14/19 08:00 78 16 90/52 100 12/14/19 03:37 97.6 F 68 18 93/56 99 12/13/19 23:00 97.7 F 105 H 18 105/63 98 12/13/19 21:02 96 12/13/19 20:10 97.4 F L 77 18 91/54 94 L 12/13/19 16:59 69 18 90/53 99 12/13/19 15:24 97.6 F 64 19 102/69 100 12/13/19 14:15 80 16 92/72 12/13/19 13:30 75 18 101/89 85 L Intake and Output 12/13/19 12/14/19 12/14/19 22:59 06:59 14:59 Intake Total 120 Balance 120 Intake: Oral 120 Other: Voiding Method Indwelling Catheter Indwelling Catheter Indwelling Catheter Weight 125.645 kg 135.5 kg 135.5 kg Gen: This is an 84-year-old female. Patient is resting in bed and appears to be comfortable. and daughter at bedside. HEENT: Head is atraumatic, normocephalic. Pupils equal, round. Sclerae is anicte ron. NECK: Supple. No JVD. No lymphadenopathy. No thyromegaly. LUNGS: Clear to auscultation. No wheezes or rhonchi. No intercostal retractions. HEART: Irregularly irregular rate and rhythm. Systolic murmur. ABDOMEN: Soft. Bowel sounds are present. No masses. No abdominal tenderness EXTREMITIES: 3+ bilateral pedal edema, shiny skin, chronic dark skin changes noted to bilateral lower legs. No calf tenderness. NEUROLOGICAL: Patient is awake, alert and oriented x3. Cranial nerves 2 through 12 are grossly intact. Generalized weakness noted. Results CBC & Chem 7: 12/14/19 07:20 12/14/19 07:20 Labs: Abnormal Lab Results - Last 24 Hours (Table) 12/13/19 12/13/19 12/13/19 Range/Units 12:10 12:10 12:10 WBC 16.5 H (3.8-10.6) k/uL Hgb 10.9 L (11.4-16.0) gm/dL Hct (34.0-46.0) % MCHC (31.0-37.0) g/dL RDW 18.3 H (11.5-15.5) % Neutrophils # 13.7 H (1.3-7.7) k/uL VBG HCO3 (24-28) mmol/L Sodium 134 L (137-145) mmol/L Potassium (3.5-5.1) mmol/L Carbon Dioxide 21 L (22-30) mmol/L BUN 45 H (7-17) mg/dL Creatinine 1.15 H (0.52-1.04) mg/dL Glucose 141 H (74-99) mg/dL Plasma Lactic Acid Afshin (0.7-2.0) mmol/L Albumin 2.9 L (3.5-5.0) g/dL Procalcitonin (0.02-0.09) ng/mL Urine Appearance Cloudy H (Clear) Urine Protein Trace H (Negative) Urine Blood Small H (Negative) Ur Leukocyte Esterase Small H (Negative) Urine RBC 18 H (0-5) /hpf Urine WBC 9 H (0-5) /hpf Ur Squamous Epith Cells 5 H (0-4) /hpf Urine Bacteria Rare H (None) /hpf Hyaline Casts 3 H (0-2) /lpf Urine Mucus Moderate H (None) /hpf Urine Yeast (Budding) Occasional H (None) /hpf 12/13/19 12/13/19 12/13/19 Range/Units 12:10 12:10 12:10 WBC (3.8-10.6) k/uL Hgb (11.4-16.0) gm/dL Hct (34.0-46.0) % MCHC (31.0-37.0) g/dL RDW (11.5-15.5) % Neutrophils # (1.3-7.7) k/uL VBG HCO3 22 L (24-28) mmol/L Sodium (137-145) mmol/L Potassium (3.5-5.1) mmol/L Carbon Dioxide (22-30) mmol/L BUN (7-17) mg/dL Creatinine (0.52-1.04) mg/dL Glucose (74-99) mg/dL Plasma Lactic Acid Afshin 2.3 H* (0.7-2.0) mmol/L Albumin (3.5-5.0) g/dL Procalcitonin 0.30 H (0.02-0.09) ng/mL Urine Appearance (Clear) Urine Protein (Negative) Urine Blood (Negative) Ur Leukocyte Esterase (Negative) Urine RBC (0-5) /hpf Urine WBC (0-5) /hpf Ur Squamous Epith Cells (0-4) /hpf Urine Bacteria (None) /hpf Hyaline Casts (0-2) /lpf Urine Mucus (None) /hpf Urine Yeast (Budding) (None) /hpf 12/13/19 12/14/19 12/14/19 Range/Units 16:47 07:20 07:20 WBC 15.1 H (3.8-10.6) k/uL Hgb 10.2 L (11.4-16.0) gm/dL Hct 32.9 L (34.0-46.0) % MCHC 30.9 L (31.0-37.0) g/dL RDW 18.3 H (11.5-15.5) % Neutrophils # 12.4 H (1.3-7.7) k/uL VBG HCO3 (24-28) mmol/L Sodium 134 L (137-145) mmol/L Potassium 5.2 H (3.5-5.1) mmol/L Carbon Dioxide 19 L (22-30) mmol/L BUN 47 H (7-17) mg/dL Creatinine (0.52-1.04) mg/dL Glucose (74-99) mg/dL Plasma Lactic Acid Afshin 2.2 H* (0.7-2.0) mmol/L Albumin 2.8 L (3.5-5.0) g/dL Procalcitonin (0.02-0.09) ng/mL Urine Appearance (Clear) Urine Protein (Negative) Urine Blood (Negative) Ur Leukocyte Esterase (Negative) Urine RBC (0-5) /hpf Urine WBC (0-5) /hpf Ur Squamous Epith Cells (0-4) /hpf Urine Bacteria (None) /hpf Hyaline Casts (0-2) /lpf Urine Mucus (None) /hpf Urine Yeast (Budding) (None) /hpf Thrombosis Risk Factor Assmnt - DVT/VTE Prophylaxis DVT/VTE Prophylaxis: Pharmacologic Prophylaxis ordered - Choose All That Apply Each Factor Represents 1 point: Medical pt on bed rest, Obesity (BMI >25) Each Risk Factor Represents 3 Points: Age 75 years or older Thrombosis Risk Factor Assessment Total Risk Factor Score: 5 Thrombosis Risk Factor Assessment Level: High Risk Assessment and Plan Plan: 1. Lower extremity edema and anasarca with third spacing without acute heart failure. Angel Luis wraps of bilateral lower extremities, midodrine started to support blood pressure and Lasix 20 mg IV twice daily, dietitian consult for protein supplementation, Remeron to improve appetite, cardiology consult. 2. Shortness of breath, secondary to acute PE. Consult with Dr. Patricia for possible new PE while on anticoagulation. Patient was placed on heparin subcu following laminectomy and was scheduled to start eliquis today. 3. 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 Continue eliquis 5 mg twice daily. Patient recently underwent Malik filter on November 30 prior to laminectomy surgery. 4. Leukocytosis and lactic acidosis of unclear etiology, possibly related to renal failure. Currently no sign of infection. 5. Acute kidney injury with chronic kidney disease stage II. Baseline creatinine is 0.5. Monitor, avoid nephrotoxic agents 6. Paroxysmal atrial fibrillation. Continue metoprolol 50 mg twice daily, digoxin 125 g daily, Cardizem CD 120 mg daily. 7. Valvular heart disease with severe tricuspid regurgitation, aortic stenosis with mean gradient of 36 mmHg, mild mitral regurgitation. Repeat echocardiogram has been ordered. 8. Severe pulmonary hypertension with RVSP 60 mmHg. 9. Hypertension, history. 10. Hyperlipidemia. Continue atorvastatin 10 mg at bedtime. 11. Diabetes mellitus type 2. Hold glipizide and metformin. Start NovoLog scale before meals and at bedtime. 12. Spinal stenosis status post laminectomy November 30, stable. PT and OT evaluations. 13. Recent hospitalization small bowel obstruction secondary to incarcerated umbilical hernia status post repair of the hernia, stable. 14. Recurrent depression. Continue Wellbutrin SR 150 mg twice daily, Remeron 7.5 mg at bedtime. 10. Gastroesophageal reflux disease and GI prophylaxis. Protonix oral. 12. DVT prophylaxis. Eliquis. Patient will be admitted to the hospital for a minimum of 3 night stay. Discharge plan: Return to [facility], most likely on Tuesday/Tuesday. Impression and plan of care have been directed as dictated by the signing physician. India Conway nurse practitioner acting as scribe for signing milton doss.
--- NOTE | 2019-12-14 14:09 | P.CRDCN ---
History of Present Illness History of present illness: This is Dr. Kingston dictating a consult on this patient The patient was interviewed and examined by me IMPRESSION / ASSESSMENT: Right upper lobe pulmonary emboli Recent diagnosis of deep vein thrombosis left-sided with worsening unilateral edema Chronic lymphedema Recent back surgery History of atrial fibrillation congestive heart failure PLAN: Treatment of pulmonary embolism 2-D echo and Doppler study Continue apixaban Continue diltiazem and digoxin Agree with Lasix 20 mg every 12 HPI Patient presented with increasing lethargy weight gain lower extremity edema Increasing weight gain lower extremity edema No chest discomfort Low blood pressures for the last one week in [facility] ROS: No fever chills or rigors, no cough, phlegm or expectoration, no nausea, vomiting or diarrhea, no hematuria, dysuria, no musculoskeletal complaints, no strokes or seizures, no skin lesions. EXAMINATION: Blood pressure 90/52 mmHg pulse rate in the 70s respirations 16-18 mild short of breath Breath sounds are reduced bilaterally Ejection systolic murmur soft Abdomen is soft Bilateral lower extremity edema worse on the left side REVIEW OF LABS, ECG & MEDICAL DATA WHITE count 15,000 potassium 5.2 sodium 134 GFR 52 Past Medical History Past Medical History: Blood Disorder, Diabetes Mellitus, Deep Vein Thrombosis (DVT), GERD/Reflux, Hyperlipidemia, Hypertension, Osteoarthritis (OA), Pneumonia, Pulmonary Embolus (PE), Renal Disease Additional Past Medical History / Comment(s): Hx of PE & DVT over 11 yrs ago. Morbid obesity, mass on right kidney, cellulitis BLE, fall at home, history of bilateral total knee replacements approximately [address] Augustin, spinal stenosis status post laminectomy History of Any Multi-Drug Resistant Organisms: None Reported Past Surgical History: Breast Surgery, Cholecystectomy, Joint Replacement, Orthopedic Surgery Additional Past Surgical History / Comment(s): thelma knee replac; L shoulder replac.; carpel tunnel vaginal duct cyst; benign breast surg; cataracts; retinal repair left eye. BAck surgery, hernia repair Past Anesthesia/Blood Transfusion Reactions: No Reported Reaction Past Psychological History: No Psychological Hx Reported Additional Psychological History / Comment(s): October 2019. Smoking Status: Never smoker Past Alcohol Use History: None Reported Past Drug Use History: None Reported - Past Family History Father Family Medical History: Deep Vein Thrombosis (DVT) Son(s) Family Medical History: Deep Vein Thrombosis (DVT) Mother Family Medical History: Cancer Additional Family Medical History / Comment(s): Mother had cancer in her back. Daughter(s) Family Medical History: Blood Disorder Additional Family Medical History / Comment(s): Daughter has MTHFR factor and pt's grandson has lyme factor V and grand daughter has MTHFR. Medications and Allergies Home Medications Medication Instructions Recorded Confirmed Type Simvastatin [Zocor] 10 mg PO HS@2100 08/25/17 12/13/19 History glipiZIDE [Glucotrol] 5 mg PO DAILY@0800 08/25/17 12/13/19 History metFORMIN HCL [Glucophage] 1,000 mg PO DAILY@0800 08/25/17 12/13/19 History Furosemide [Lasix] 40 mg PO BID@0800,1700 08/19/19 12/13/19 History Omeprazole [PriLOSEC] 20 mg PO DAILY@0600 08/19/19 12/13/19 History Potassium Chloride [Klor-Con 20] 20 meq PO DAILY@1700 08/19/19 12/13/19 History guaiFENesin [Mucinex] 600 mg PO Q12HR PRN tablet.er 09/25/19 12/13/19 Rx buPROPion HCL [Wellbutrin SR] 150 mg PO BID@0800,2100 10/22/19 12/13/19 History Acetaminophen Tab [Tylenol] 650 mg PO Q4H PRN 12/13/19 12/13/19 History Apixaban [Eliquis] 5 mg PO BID@0800,1700 12/13/19 12/13/19 History Bisacodyl [Dulcolax] 10 mg RECTAL DAILY PRN 12/13/19 12/13/19 History Cefpodoxime Proxetil [Vantin] 100 mg PO BID@0800,1700 12/13/19 12/13/19 History Digoxin [Lanoxin] 125 mcg PO DAILY@0600 12/13/19 12/13/19 History Diltiazem HCl [Cartia Xt] 120 mg PO DAILY@0800 12/13/19 12/13/19 History Ensure Clear 1 can PO BID@0800,1700 12/13/19 12/13/19 History Heparin Sodium,Porcine [Heparin 7,500 unit SQ Q8HR@0600,1400,2200 12/13/19 12/13/19 History Sodium] INSULIN ASPART (NovoLOG) [NovoLOG See Protocol SQ ACHS 12/13/19 12/13/19 History (formulary)] Ipratropium-Albuterol Nebulize 3 ml INHALATION RT-TID PRN 12/13/19 12/13/19 History [Duoneb 0.5 mg-3 mg/3 ml Soln] Lactulose 20 gm PO BID@0800,1700 12/13/19 12/13/19 History Lasix 10mg/Ml 60 mg IM ONCE PRN 12/13/19 12/13/19 History Lidocaine 4% Patch 1 patch TOPICAL DAILY@0800 12/13/19 12/13/19 History Magnesium Hydroxide [Milk of 2,400 mg PO DAILY PRN 12/13/19 12/13/19 History Magnesia] Magnesium Oxide [Mag-Ox] 400 mg PO BID@0800,1700 12/13/19 12/13/19 History Methocarbamol [Robaxin] 750 mg PO Q8H PRN 12/13/19 12/13/19 History Metoclopramide [Reglan] 5 mg PO QID PRN 12/13/19 12/13/19 History Metoprolol Tartrate [Lopressor] 100 mg PO BID@0800,2100 12/13/19 12/13/19 History Mirtazapine 7.5 mg PO HS@209912/13/19 12/13/19 History Na Phos,M-B/Na Phos,Di-Ba [Fleet 133 ml RECTAL DAILY PRN 12/13/19 12/13/19 History Adult] Sennosides-Docusate Sodium 1 tab PO BID@0800,1700 12/13/19 12/13/19 History [Senokot-S] traMADol HCL 50 mg PO Q4H PRN 12/13/19 12/13/19 History Allergies Allergy/AdvReac Type Severity Reaction Status Date / Time Penicillins Allergy Rash/Hives Verified 12/13/19 11:51 azithromycin AdvReac Dyspnea & Verified 12/13/19 11:51 nausea ciprofloxacin [From Cipro] AdvReac Dyspnea & Verified 12/13/19 11:51 nausea Physical Exam Vitals: Vital Signs Temp Pulse Pulse Resp BP BP Pulse Ox 12/14/19 11:29 80 12/14/19 11:15 76 12/14/19 08:00 78 16 90/52 100 12/14/19 03:37 97.6 F 68 18 93/56 99 12/13/19 23:00 97.7 F 105 H 18 105/63 98 12/13/19 21:02 96 12/13/19 20:10 97.4 F L 77 18 91/54 94 L 12/13/19 16:59 69 18 90/53 99 12/13/19 15:24 97.6 F 64 19 102/69 100 12/13/19 14:15 80 16 92/72 Intake and Output 12/13/19 12/14/19 12/14/19 22:59 06:59 14:59 Intake Total 120 0 Balance 120 0 Intake: Oral 120 0 Other: Voiding Method Indwelling Catheter Indwelling Catheter Indwelling Catheter Weight 125.645 kg 135.5 kg 135.5 kg Results 12/14/19 07:20 12/14/19 07:20 Cardiac Enzymes 12/14/19 Range/Units 07:20 AST 21 (14-36) U/L CBC 12/14/19 Range/Units 07:20 WBC 15.1 H (3.8-10.6) k/uL RBC 3.97 (3.80-5.40) m/uL Hgb 10.2 L (11.4-16.0) gm/dL Hct 32.9 L (34.0-46.0) % Plt Count 221 (150-450) k/uL Comprehensive Metabolic Panel 12/14/19 Range/Units 07:20 Sodium 134 L (137-145) mmol/L Potassium 5.2 H (3.5-5.1) mmol/L Chloride 102 (98-107) mmol/L Carbon Dioxide 19 L (22-30) mmol/L BUN 47 H (7-17) mg/dL Creatinine 1.02 (0.52-1.04) mg/dL Glucose 87 (74-99) mg/dL Calcium 8.4 (8.4-10.2) mg/dL AST 21 (14-36) U/L ALT 10 (4-34) U/L Alkaline Phosphatase 97 (38-126) U/L Total Protein 6.3 (6.3-8.2) g/dL Albumin 2.8 L (3.5-5.0) g/dL Current Medications Generic Name Dose Route Start Last Admin Trade Name Freq PRN Reason Stop Dose Admin Acetaminophen 650 mg 12/13/19 17:39 Tylenol Tab PO Q4H PRN Fever and/ or Pain Albuterol/Ipratropium 3 ml 12/13/19 17:39 12/14/19 11:13 Duoneb 0.5 Mg-3 Mg/3 Ml Soln INHALATION 3 ml RT-TID PRN Administration Shortness Of Breath Apixaban 5 mg 12/14/19 08:00 12/14/19 09:06 Eliquis PO 5 mg BID@0800,1700 [facility] Administration Atorvastatin Calcium 10 mg 12/13/19 21:00 12/13/19 21:53 Lipitor PO 10 mg HS@2100 [facility] Administration Bisacodyl 10 mg 12/13/19 17:39 Dulcolax RECTAL DAILY PRN Constipation Bupropion HCl 150 mg 12/13/19 21:00 12/14/19 09:05 Wellbutrin Sr PO 150 mg BID@0800,2100 [facility] Administration Digoxin 125 mcg 12/14/19 06:00 12/14/19 09:06 Lanoxin PO 125 mcg DAILY@0600 [facility] Administration Diltiazem HCl 120 mg 12/14/19 08:00 12/14/19 09:06 Cardizem Cd PO 120 mg DAILY@0800 [facility] Administration Furosemide 20 mg 12/14/19 11:00 12/14/19 12:47 Lasix IV 20 mg Q12HR [facility] Administration Guaifenesin 600 mg 12/13/19 17:39 Mucinex PO Q12HR PRN Cough Insulin Aspart 0 unit 12/14/19 17:30 Novolog SQ ACHS [facility] Protocol Lactulose 20 gm 12/14/19 08:00 12/14/19 09:06 Cephulac PO 20 gm BID@0800,1700 [facility] Administration Magnesium Hydroxide 2,400 mg 12/13/19 17:39 Milk Of Magnesia PO DAILY PRN Constipation Magnesium Oxide 400 mg 12/14/19 08:00 12/14/19 09:05 Mag-Ox PO 400 mg BID@0800,1700 [facility] Administration Metoprolol Tartrate 50 mg 12/13/19 21:00 12/14/19 09:05 Lopressor PO 50 mg BID@0800,2100 [facility] Administration Midodrine 5 mg 12/14/19 11:00 12/14/19 12:48 Proamatine PO 5 mg AC-BID [facility] Administration Mirtazapine 7.5 mg 12/13/19 21:00 12/13/19 21:53 Remeron PO 7.5 mg HS@2100 [facility] Administration Naloxone HCl 0.2 mg 12/13/19 15:56 Narcan IV Q2M PRN Opioid Reversal Non-Formulary Medication 1 patch 12/14/19 08:00 Lidocaine 4% Patch TOPICAL DAILY@0800 [facility] Pantoprazole Sodium 40 mg 12/14/19 06:00 12/14/19 05:24 Protonix PO 40 mg DAILY@0600 [facility] Administration Senna/Docusate Sodium 1 each 12/13/19 17:39 Senokot-S PO BID@0800,1700 PRN Constipation Tramadol HCl 50 mg 12/13/19 17:39 Ultram PO Q4H PRN Moderate Pain Intake and Output 12/13/19 12/14/19 12/14/19 22:59 06:59 14:59 Intake Total 120 0 Balance 120 0 Intake: Oral 120 0 Other: Voiding Method Indwelling Catheter Indwelling Catheter Indwelling Catheter Weight 125.645 kg 135.5 kg 135.5 kg Patient Weight 12/15/19 06:59 Weight 135.5 kg 12/14/19 07:20 12/14/19 07:20
--- NOTE | 2019-12-14 16:06 | CONS ---
CONSULTATION PULMONARY/CRITICAL CARE CONSULTATION: DATE OF SERVICE: 12/14/2019 This is an 84-year-old female who presented to the emergency room via EMS on December 13. She came in at 11:30. She apparently came in from the prison for evaluation of increased lethargy and weight gain. The patient apparently was in a prison over at [facility] postoperatively for a recent lumbar laminectomy. This was approximately a couple of weeks ago. She was in the hospital for about a week and then has been in the prison for about a week or so. The patient apparently had increasing weakness, decreased urine output, weight gain and leg swelling. She has just not been feeling well. She has been very weak and fatigued. She does have a history of congestive heart failure and atrial fibrillation. She also apparently has a history of pulmonary emboli and was found on this admission to have another pulmonary embolism. We were consulted primarily because of an abnormality on CT scan which suggested a lesion, and the primary service wanted us to determine whether or not it was something we could biopsy. I talked to the daughters. They were in the room. I also spoke to the patient's . They absolutely are against any sort of biopsy at this point. The patient's blood pressure has been in the 80 to 90 systolic range. Currently resting comfortably. No major complaints. HOME MEDICATIONS: Reviewed. They include Zocor, Glucotrol, Glucophage, Lasix, Prilosec, potassium, Wellbutrin, Tylenol, Eliquis, Dulcolax, Vantin, Lanoxin, Cardia XT, Ensure Clear, subcutaneous heparin, insulin, DuoNeb, lactulose, Lasix, lidocaine, Milk of Magnesia, Mag-Ox, Robaxin, Reglan, Lopressor, mirtazapine, Fleet's enema, Senna and tramadol. ALLERGIES: Reviewed. She is apparently ALLERGIC TO ZITHROMAX AND CIPROFLOXACIN. MEDICAL HISTORY: Her medical history includes a hypercoagulable state. Many family members have the MTHFR mutation and also the Factor V or Leiden factor mutation. 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 In addition, she has a history of chronic renal disease. She apparently does have a mass on the right kidney as well as spinal stenosis. SURGICAL HISTORY: Includes breast surgery, cholecystectomy, bilateral knee replacement, left shoulder replacement, carpal tunnel surgery, cataracts, retinal repair of the left eye and back surgery. SOCIAL HISTORY: Significant in that she is a lifelong nonsmoker. No alcohol use or illicit drug use. FAMILY HISTORY: Positive for father with DVT, a son with DVT and mother with cancer. Also a daughter has a both MTHFR mutation as well as the Factor V or Leiden factor gene. There is a strong family history of hypercoagulable state and DVT/pulmonary embolism. REVIEW OF SYSTEMS: CONSTITUTIONAL: Weakness. NEUROLOGIC: Negative. HEENT: Negative. CARDIOVASCULAR: Negative. PULMONARY: Negative. GI: Negative. : Negative. RHEUMATOLOGIC: Negative. IMMUNOLOGIC: Negative. ENDOCRINOLOGIC: Negative. DERMATOLOGIC: Negative. PHYSICAL EXAMINATION: VITAL SIGNS: Current vital signs are reviewed. Temperature is 97.6, heart rate 78, respiratory rate 16, blood pressure 90/52, mean 64, and 4-liter saturations are 100%. GENERAL APPEARANCE: Appears in no acute distress. Lying flat in bed. Resting comfortably. No respiratory distress. She does look frail. HEENT EXAMINATION: Grossly unremarkable. Nasal oxygen in place. NECK: Supple. Full range of motion. No adenopathy. Neck veins are flat. CARDIOVASCULAR EXAMINATION: Regular rhythm and rate. Heart rate 78 beats per minute. S1, S2 normal. LUNGS: Relatively clear. Breath sounds equal. No wheezes or rhonchi. ABDOMEN: Soft but obese. EXTREMITIES: Intact. The legs are wrapped. She has acrocyanosis. She has also edema which is pitting. No clubbing. SKIN: Without rash. NEUROLOGIC: Neurological examination is difficult to assess but appears to be nonfocal. IMAGING: The patient had a chest x-ray which showed no acute process. She also had a CT angiogram of the chest which showed a right upper lobe pulmonary embolism as well as density within the posterior left lung base, which is nonspecific. Neoplasm or atelectasis should be considered. LABS: Reviewed. White count 15.1, hemoglobin 10.2, hematocrit 32.9, platelet count 221,000. Sodium 134, potassium 5.2, chloride 102, CO2 19. Anion gap is 13. BUN and creatinine were 14 and 1.02. Microbiologic studies are thus far negative. Medications are reviewed. ASSESSMENT: 1. Right upper lobe pulmonary embolism in a patient with previous deep venous thrombosis and pulmonary emboli as well as hypercoagulable state. The hypercoagulable state in this patient is not known but probably relates to either factor V deficiency or MTHFR mutation, or both. 2. Weakness and lethargy, which may be a result of her recent surgery. 3. Significant weight gain with lower extremity edema and acrocyanosis. 4. History of diabetes mellitus. 5. History of deep venous thrombosis and pulmonary emboli. 6. History of gastroesophageal reflux disease. 7. Hyperlipidemia. 8. Hypertension. 9. Degenerative joint disease. 10.Prior history of pneumonia. 11.Pulmonary embolism. 12.Morbid obesity. 13.Right kidney mass. 14.History of cataracts. 15.History of spinal stenosis. PLAN: The family is absolutely against any sort of biopsy being done. The patient can follow up with me in the outpatient setting. She is currently on Eliquis for her pulmonary embolism. She has had DVT and PE in the past. There is a strong family history of hypercoagulable state with both factor V or Leiden factor deficiency as well as MTHFR mutation. No additional recommendations are made. Prognosis is guarded. MMODL / IJN: [id number] /
[2019-12-14 17:11] LABS: Glucose,Whole Blood 104 mg/dL (75-99)
[2019-12-14] MEDS: INSULIN ASPART (NovoLOG) 100 UNIT/ML VIAL SQ SCH ×2 (18:22→21:41)
--- NOTE | 2019-12-14 18:33 | P.CONS ---
History of Present Illness - Reason for Consult Consult date: 12/14/19 PE on anticoagulation Requesting physician: India Conway - Chief Complaint lethargy - History of Present Illness Mrs. Brandt is a very pleasant 84-year-old female who we saw back in September when she was admitted with abdominal pain. She was diagnosed with mechanical bowel obstruction secondary to an incarcerated hernia. She was needing emergent surgery. Patient had a history of DVT and PE, most recent 15 years ago, she has been on Coumadin ever since without any problems.When the patient was here her INR was reversed, she proceed with surgery with heparin drip postop until INR was therapeutic. Patient's back surgeon had asked us about placing an IVC filter-I think the Physician's had communications about the case, I do not know what was discussed. Patient's daughter states that pt went to have her back surgery, was found to have a blood clot in her lt leg (pt has history of old clot in LLE-see doppler report 10/09), and IVC filter was placed then. She underwent surgery, came out of surgery in atrial fibrillation, and has been mostly lethargic since. Patient was brought to the hospital from rehab for evaluation. She was diagnosed with a right upper lobe pulmonary embolism, a 1.6 cm left lung soft tissue density. Pt not communicative, info taken from family. Review of Systems ROS unobtainable: due to mental status Past Medical History Past Medical History: Blood Disorder, Diabetes Mellitus, Deep Vein Thrombosis (DVT), GERD/Reflux, Hyperlipidemia, Hypertension, Osteoarthritis (OA), Pneumonia, Pulmonary Embolus (PE), Renal Disease Additional Past Medical History / Comment(s): Hx of PE & DVT over 11 yrs ago. Morbid obesity, mass on right kidney, cellulitis BLE, fall at home, history of bilateral total knee replacements approximately [address] Augustin, spinal stenosis status post laminectomy History of Any Multi-Drug Resistant Organisms: None Reported Past Surgical History: Breast Surgery, Cholecystectomy, Joint Replacement, Orthopedic Surgery Additional Past Surgical History / Comment(s): thelma knee replac; L shoulder replac.; carpel tunnel vaginal duct cyst; benign breast surg; cataracts; retin al repair left eye. BAck surgery, hernia repair Past Anesthesia/Blood Transfusion Reactions: No Reported Reaction Past Psychological History: No Psychological Hx Reported Additional Psychological History / Comment(s): October 2019. Smoking Status: Never smoker Past Alcohol Use History: None Reported Past Drug Use History: None Reported - Past Family History Father Family Medical History: Deep Vein Thrombosis (DVT) Son(s) Family Medical History: Deep Vein Thrombosis (DVT) Mother Family Medical History: Cancer Additional Family Medical History / Comment(s): Mother had cancer in her back. Daughter(s) Family Medical History: Blood Disorder Additional Family Medical History / Comment(s): Daughter has MTHFR factor and pt's grandson has lyme factor V and grand daughter has MTHFR. Medications and Allergies Home Medications Medication Instructions Recorded Confirmed Type Simvastatin [Zocor] 10 mg PO HS@2100 08/25/17 12/13/19 History glipiZIDE [Glucotrol] 5 mg PO DAILY@0800 08/25/17 12/13/19 History metFORMIN HCL [Glucophage] 1,000 mg PO DAILY@0800 08/25/17 12/13/19 History Furosemide [Lasix] 40 mg PO BID@0800,1700 08/19/19 12/13/19 History Omeprazole [PriLOSEC] 20 mg PO DAILY@0600 08/19/19 12/13/19 History Potassium Chloride [Klor-Con 20] 20 meq PO DAILY@17008/19/19 12/13/19 History guaiFENesin [Mucinex] 600 mg PO Q12HR PRN tablet.er 09/25/19 12/13/19 Rx buPROPion HCL [Wellbutrin SR] 150 mg PO BID@0800,2100 10/22/19 12/13/19 History Acetaminophen Tab [Tylenol] 650 mg PO Q4H PRN 12/13/19 12/13/19 History Apixaban [Eliquis] 5 mg PO BID@0800,1700 12/13/19 12/13/19 History Bisacodyl [Dulcolax] 10 mg RECTAL DAILY PRN 12/13/19 12/13/19 History Cefpodoxime Proxetil [Vantin] 100 mg PO BID@0800,1700 12/13/19 12/13/19 History Digoxin [Lanoxin] 125 mcg PO DAILY@0600 12/13/19 12/13/19 History Diltiazem HCl [Cartia Xt] 120 mg PO DAILY@0800 12/13/19 12/13/19 History Ensure Clear 1 can PO BID@0800,1700 12/13/19 12/13/19 History Heparin Sodium,Porcine [Heparin 7,500 unit SQ Q8HR@0600,1400,2200 12/13/19 12/13/19 History Sodium] INSULIN ASPART (NovoLOG) [NovoLOG See Protocol SQ ACHS 12/13/19 12/13/19 History (formulary)] Ipratropium-Albuterol Nebulize 3 ml INHALATION RT-TID PRN 12/13/19 12/13/19 History [Duoneb 0.5 mg-3 mg/3 ml Soln] Lactulose 20 gm PO BID@0800,1700 12/13/19 12/13/19 History Lasix 10mg/Ml 60 mg IM ONCE PRN 12/13/19 12/13/19 History Lidocaine 4% Patch 1 patch TOPICAL DAILY@0800 12/13/19 12/13/19 History Magnesium Hydroxide [Milk of 2,400 mg PO DAILY PRN 12/13/19 12/13/19 History Magnesia] Magnesium Oxide [Mag-Ox] 400 mg PO BID@0800,1700 12/13/19 12/13/19 History Methocarbamol [Robaxin] 750 mg PO Q8H PRN 12/13/19 12/13/19 History Metoclopramide [Reglan] 5 mg PO QID PRN 12/13/19 12/13/19 History Metoprolol Tartrate [Lopressor] 100 mg PO BID@0800,2100 12/13/19 12/13/19 History Mirtazapine 7.5 mg PO HS@209912/13/19 12/13/19 History Na Phos,M-B/Na Phos,Di-Ba [Fleet 133 ml RECTAL DAILY PRN 12/13/19 12/13/19 History Adult] Sennosides-Docusate Sodium 1 tab PO BID@0800,1700 12/13/19 12/13/19 History [Senokot-S] traMADol HCL 50 mg PO Q4H PRN 12/13/19 12/13/19 History Allergies Allergy/AdvReac Type Severity Reaction Status Date / Time Penicillins Allergy Rash/Hives Verified 12/13/19 11:51 azithromycin AdvReac Dyspnea & Verified 12/13/19 11:51 nausea ciprofloxacin [From Cipro] AdvReac Dyspnea & Verified 12/13/19 11:51 nausea Physical Exam Vitals: Vital Signs Temp Pulse Pulse Resp BP BP Pulse Ox 12/14/19 15:46 16 12/14/19 12:00 95 16 97/53 100 12/14/19 11:29 80 12/14/19 11:15 76 12/14/19 08:00 78 16 90/52 100 12/14/19 03:37 97.6 F 68 18 93/56 99 12/13/19 23:00 97.7 F 105 H 18 105/63 98 12/13/19 21:02 96 12/13/19 20:10 97.4 F L 77 18 91/54 94 L 12/13/19 16:59 69 18 90/53 99 Intake and Output 12/14/19 12/14/19 12/14/19 06:59 14:59 22:59 Intake Total 120 200 Output Total 675 Balance 120 200 -675 Intake: Oral 120 200 Output: Urine 675 Other: Voiding Method Indwelling Catheter Indwelling Catheter Indwelling Catheter Weight 135.5 kg 135.5 kg - Constitutional General appearance: morbidly obese, no acute distress - EENT Eyes: anicteric sclerae - Neck Neck: no lymphadenopathy - Respiratory Respiratory: bilateral: CTA (pt not following commands) - Cardiovascular Rhythm: irregularly irregular Heart sounds: normal: S1, S2 Abnormal Heart Sounds: no systolic murmur, no diastolic murmur, no rub, no S3 Gallop, no S4 Gallop, no click, no other leg Peripheral Edema: bilateral: 3+ (cyanotic toes) - Gastrointestinal General gastrointestinal: no absent bowel sounds, no decreased bowel sounds, no distended, no hepatomegaly, no hyperactive bowel sounds, normal bowel sounds, no organomegaly, no rigid, no scaphoid, soft, no splenomegaly, no tenderness, no umbilical hernia, no ventral hernia - Integumentary Integumentary: pale - Psychiatric pt is obtunded Psychiatric: no A&O x's 3, no appropriate affect, no intact judgment & insight Results CBC & Chem 7: 12/14/19 07:20 12/14/19 07:20 Labs: Abnormal Lab Results - Last 24 Hours (Table) 12/13/19 12/13/1920 Range/Units 12:10 16:47 07:20 WBC 15.1 H (3.8-10.6) k/uL Hgb 10.2 L (11.4-16.0) gm/dL Hct 32.9 L (34.0-46.0) % MCHC 30.9 L (31.0-37.0) g/dL RDW 18.3 H (11.5-15.5) % Neutrophils # 12.4 H (1.3-7.7) k/uL Sodium (137-145) mmol/L Potassium (3.5-5.1) mmol/L Carbon Dioxide (22-30) mmol/L BUN (7-17) mg/dL Plasma Lactic Acid Afshin 2.2 H* (0.7-2.0) mmol/L Albumin (3.5-5.0) g/dL Procalcitonin 0.30 H (0.02-0.09) ng/mL 12/14/19 Range/Units 07:20 WBC (3.8-10.6) k/uL Hgb (11.4-16.0) gm/dL Hct (34.0-46.0) % MCHC (31.0-37.0) g/dL RDW (11.5-15.5) % Neutrophils # (1.3-7.7) k/uL Sodium 134 L (137-145) mmol/L Potassium 5.2 H (3.5-5.1) mmol/L Carbon Dioxide 19 L (22-30) mmol/L BUN 47 H (7-17) mg/dL Plasma Lactic Acid Afshin (0.7-2.0) mmol/L Albumin 2.8 L (3.5-5.0) g/dL Procalcitonin (0.02-0.09) ng/mL Microbiology - Last 24 Hours (Table) 12/13/19 12:10 Blood Culture - Preliminary Blood No Growth after [address] scan - chest: report reviewed Assessment and Plan (1) Pulmonary embolism Narrative/Plan: Not certain if PE is new or old. It would be less likely to be new as pt has IVC filter, put in before recent surgery but, cannot be certain. Pt was continued on eliquis on admit. She will be at a higher risk for bleeding if heparin drip is started now so, therapeutic dose of lovenox ordered to begin in AM. Doppler of legs ordered. Pt has known LLE DVT but,need to know if this has propagated or changed. Current Visit: Yes Status: Acute Priority: High Code(s): I26.99 - OTHER PULMONARY EMBOLISM WITHOUT ACUTE COR PULMONALE SNOMED Code(s): 47197053 (2) Hypercoagulable state Narrative/Plan: Pt is to be on lifelong anticoagulation Current Visit: No Status: Chronic Priority: Low Code(s): D68.59 - OTHER PRIMARY THROMBOPHILIA SNOMED Code(s): 33602183
[2019-12-14 20:11] LABS: Glucose,Whole Blood 191 mg/dL (75-99)
[2019-12-14] MEDS ORDERED: MIRTAZAPINE 15 MG TAB PO SCH (21:00)
[2019-12-14] MEDS: LIDOCAINE 4% TOPICAL SCH (21:31)
[2019-12-14] MEDS: MIRTAZAPINE 15 MG TAB PO SCH (21:40)
[2019-12-14] MEDS: ATORVASTATIN 10 MG TAB PO SCH (21:40)
[2019-12-14] MEDS: ENOXAPARIN 150 MG/ML SYRINGE SQ SCH (21:41)
[2019-12-15 06:37] LABS: Glucose,Whole Blood 129 mg/dL (75-99)
[2019-12-15] MEDS: INSULIN ASPART (NovoLOG) 100 UNIT/ML VIAL SQ SCH ×4 (06:38→20:59)
[2019-12-15] MEDS: MIDODRINE 5 MG TAB PO SCH ×2 (06:43→18:01)
[2019-12-15] MEDS: PANTOPRAZOLE 40 MG TABLET PO SCH (06:43)
[2019-12-15] MEDS: DIGOXIN 125 MCG TAB PO SCH (06:43)
[2019-12-15 07:04] LABS: Anisocytosis Slight; Basophils # (A) 0.3 k/uL (0-0.2); Basophils % (A) 2 %; Eosinophils # (A) 0.2 k/uL (0-0.7); Eosinophils % (A) 1 %; HGB 9.8 gm/dL (11.4-16.0); Hypochromasia Marked; Lymphocytes # (A) 1.4 k/uL (1.0-4.8); Lymphocytes % (A) 8 %; MCH 25.4 pg (25.0-35.0); MCHC 30.5 g/dL (31.0-37.0); MCV 83.1 fL (80.0-100.0); Mean Platelet Volume 10.6; Monocytes # (A) 0.9 k/uL (0-1.0); Monocytes % (A) 6 %; Neutrophils # (A) 13.5 k/uL (1.3-7.7); Neutrophils % (A) 82 %; Platelet Count 245 k/uL (150-450); RBC 3.85 m/uL (3.80-5.40); RDW 18.4 % (11.5-15.5); WBC 16.4 k/uL (3.8-10.6)
[2019-12-15 07:21] LABS: Albumin 2.7 g/dL (3.5-5.0); Calcium 8.4 mg/dL (8.4-10.2); Potassium 5.1 mmol/L (3.5-5.1); Total Bilirubin 0.7 mg/dL (0.2-1.3); Total Protein 6.2 g/dL (6.3-8.2)
[2019-12-15] MEDS: FUROSEMIDE 10 MG/ML 2 ML VIAL IV SCH ×2 (09:59→19:59)
[2019-12-15] MEDS: buPROPion SR 150 MG TABLET.ER PO SCH ×2 (10:00→20:00)
[2019-12-15] MEDS: ENOXAPARIN 150 MG/ML SYRINGE SQ SCH (10:00)
[2019-12-15] MEDS: MAGNESIUM OXIDE 400 MG TAB PO SCH ×2 (10:00→18:01)
[2019-12-15] MEDS: LACTULOSE 20 GM/30 ML CUP PO SCH ×2 (10:00→18:02)
[2019-12-15] MEDS: METOPROLOL TARTRATE 50 MG TAB PO SCH ×2 (10:00→19:59)
[2019-12-15] MEDS: DILTIAZEM CD 120 MG CAP.ER.24H PO SCH (10:00)
[2019-12-15] MEDS: LIDOCAINE 4% TOPICAL SCH (10:01)
[2019-12-15 12:18] LABS: Glucose,Whole Blood 201 mg/dL (75-99)
--- NOTE | 2019-12-15 12:29 | P.PN ---
Subjective Progress Note Date: 12/15/19 Principal diagnosis: Right upper lobe pulmonary embolism in a patient with previous DVT and PE as well as hypercoagulable state. The patient is seen today 12/15/2019 on the selective care unit. She is currently awake and alert in no acute distress. She is resting comfortably in bed. Multiple family members at the bedside. She was recovering from a lumbar laminectomy and developed shortness of breath and was found to have another pulmonary emboli. There was incidental finding of a small left lower base nodule and we are consulted for the same. Family is against any further workup in this regard me. Maybe follow-up CAT scans at best. She is currently maintaining good O2 saturations in the mid 90s on 2 L/m per nasal cannula. She's been afebrile. Hemodynamically stable. She is currently on Lovenox, IV diuretics and bronchodilators. Objective - Vital Signs Vital signs: Vital Signs Temp 98.4 F 12/15/19 04:00 Pulse 74 12/15/19 08:00 Resp 20 12/15/19 08:00 BP 101/57 12/15/19 08:00 Pulse Ox 99 12/15/19 08:00 Intake & Output 12/14/19 12/15/19 12/15/19 18:59 06:59 18:59 Intake Total 200 240 480 Output Total 675 900 Balance -475 -660 480 Weight 135.5 kg 137.5 kg Intake: Oral 200 240 480 Output: Urine 675 900 Other: Voiding Method Indwelling Catheter Indwelling Catheter - Exam GENERAL EXAM: Alert, pleasant 84-year-old female patient, on 2 L nasal cannula, comfortable in no apparent distress. HEAD: Normocephalic. EYES: Normal reaction of pupils, equal size. NOSE: Clear with pink turbinates. THROAT: No erythema or exudates. NECK: No masses, no JVD. CHEST: No chest wall deformity. LUNGS: Equal air entry with no crackles, wheeze, rhonchi or dullness. CVS: S1 and S2 normal with no audible murmur, regular rhythm. ABDOMEN: No hepatosplenomegaly, normal bowel sounds, no guarding or rigidity. SPINE: No scoliosis or deformity SKIN: No rashes CENTRAL NERVOUS SYSTEM: No focal deficits, tone is normal in all 4 extremities. EXTREMITIES: There is no peripheral edema. No clubbing, no cyanosis. Peripheral pulses are intact. - Labs CBC & Chem 7: 12/15/19 06:14 12/15/19 06:14 Labs: Abnormal Lab Results - Last 24 Hours (Table) 12/14/19 12/14/19 12/15/19 Range/Units 16:50 20:09 06:14 WBC 16.4 H (3.8-10.6) k/uL Hgb 9.8 L (11.4-16.0) gm/dL Hct 32.0 L (34.0-46.0) % MCHC 30.5 L (31.0-37.0) g/dL RDW 18.4 H (11.5-15.5) % Neutrophils # 13.5 H (1.3-7.7) k/uL Basophils # 0.3 H (0-0.2) k/uL Sodium (137-145) mmol/L Carbon Dioxide (22-30) mmol/L BUN (7-17) mg/dL Glucose (74-99) mg/dL POC Glucose (mg/dL) 104 H 191 H (75-99) mg/dL Total Protein (6.3-8.2) g/dL Albumin (3.5-5.0) g/dL 12/15/19 12/15/19 12/15/19 Range/Units 06:14 06:36 12:07 WBC (3.8-10.6) k/uL Hgb (11.4-16.0) gm/dL Hct (34.0-46.0) % MCHC (31.0-37.0) g/dL RDW (11.5-15.5) % Neutrophils # (1.3-7.7) k/uL Basophils # (0-0.2) k/uL Sodium 134 L (137-145) mmol/L Carbon Dioxide 19 L (22-30) mmol/L BUN 45 H (7-17) mg/dL Glucose 132 H (74-99) mg/dL POC Glucose (mg/dL) 129 H 201 H (75-99) mg/dL Total Protein 6.2 L (6.3-8.2) g/dL Albumin 2.7 L (3.5-5.0) g/dL Microbiology - Last 24 Hours (Table) 12/13/19 12:10 Blood Culture - Preliminary Blood No Growth after 24 hours Assessment and Plan Assessment: 1 Right upper lobe pulmonary embolism in a patient with previous DVT/PE as well as hypercoagulable state. 2 Hypercoagulable state 3 Recent lumbar laminectomy 4 Lower extremity peripheral edema 5 Diabetes mellitus. 6 6 Previous history of DVT/PE 7 GERD 8 Hyperlipidemia 9 Hypertension 10 Degenerative joint disease. 11 Morbid obesity 12 Right kidney mass Plan: The patient was seen and evaluated by . He spoke again to the multiple family members at the bedside. Reviewed CAT scan with him. They do not wish any further investigations of the left lower lung nodule. Hematology is on the case. We'll continue to follow. Follow-up computed tomography scan of the chest in 6 months is recommended. I, the cosigning physician, performed a history & physical examination of the patient. Lungs sounds are clear. Maintaining good O2 saturations in the 90s on room air. I discussed the assessment and plan of care with my nurse practitioner, Corinna Wheeler. I attest to the above note as dictated by her.
[2019-12-15] MEDS ORDERED: HYDROCORTISONE 2.5% RECTAL CREAM 30 GM TUBE RECTAL PRN (12:36)
--- NOTE | 2019-12-15 12:57 | P.PN ---
Subjective Progress Note Date: 12/15/19 The patient is currently resting comfortably in bed. She states she is tired she did work with therapy this morning. She states her breathing is better, but she does get shortness of breath with exertion. She denies any chest pain, chest pressure, palpitations, dizziness, or lightheadedness. Recent echocardiogram shows normal LV function with grade 2 diastolic dysfunction panel monitor shows persistent atrial fibrillation with average rates in the 80s. Vital signs stable overnight with average pressures in the 90- low 100's systolic GENERAL: Well-appearing obese female, well-nourished and in no acute distress. NECK: Supple without JVD or thyromegaly. LUNGS: Breath sounds diminished to auscultation bilaterally. Respiration equal and unlabored. No wheezes, rales or rhonchi. ABDOMEN: Tender in left lower quadrant to palpation. HEART: Irregular rate and rhythm without rubs or gallops. Systolic murmur audible. S1 and S2 heard. EXTREMITIES: Limited range of motion.+3 lower extremity edema. No clubbing or cyanosis. Peripheral pulses diminished LABS: WBC 16.4, hemoglobin 9.8, hematocrit 32.0, platelet 245, sodium 134, potassium 5.1, BUN 45, creatinine 0.87,AST 24, ALT 9 Impression: #1 Right upper lobe pulmonary emboli,on anticoagulation #2 history of of atrial fibrillation, currently rate controlled #3 chronic lymphedema #4 DVT, left lower extremity #5 diastolic heart failure #6 hypotension, secondary to medications and diuresis Plan: Continue low-dose diuretics. Encourage ambulation to facilitate fluid movement; recommend up to chair at least twice daily. Continue Midodrine for hypotension. Objective - Vital Signs Vital signs: Vital Signs Temp 98.4 F 12/15/19 04:00 Pulse 74 12/15/19 08:00 Resp 20 12/15/19 08:00 BP 101/57 12/15/19 08:00 Pulse Ox 99 12/15/19 08:00 Intake & Output 12/14/19 12/15/19 12/15/19 18:59 06:59 18:59 Intake Total 200 240 480 Output Total 675 900 Balance -475 -660 480 Weight 135.5 kg 137.5 kg Intake: Oral 200 240 480 Output: Urine 675 900 Other: Voiding Method Indwelling Catheter Indwelling Catheter - Labs CBC & Chem 7: 12/15/19 06:14 12/15/19 06:14 Labs: Abnormal Lab Results - Last 24 Hours (Table) 12/14/19 12/14/19 12/15/19 Range/Units 16:50 20:09 06:14 WBC 16.4 H (3.8-10.6) k/uL Hgb 9.8 L (11.4-16.0) gm/dL Hct 32.0 L (34.0-46.0) % MCHC 30.5 L (31.0-37.0) g/dL RDW 18.4 H (11.5-15.5) % Neutrophils # 13.5 H (1.3-7.7) k/uL Basophils # 0.3 H (0-0.2) k/uL Sodium (137-145) mmol/L Carbon Dioxide (22-30) mmol/L BUN (7-17) mg/dL Glucose (74-99) mg/dL POC Glucose (mg/dL) 104 H 191 H (75-99) mg/dL Total Protein (6.3-8.2) g/dL Albumin (3.5-5.0) g/dL 12/15/19 12/15/19 12/15/19 Range/Units 06:14 06:36 12:07 WBC (3.8-10.6) k/uL Hgb (11.4-16.0) gm/dL Hct (34.0-46.0) % MCHC (31.0-37.0) g/dL RDW (11.5-15.5) % Neutrophils # (1.3-7.7) k/uL Basophils # (0-0.2) k/uL Sodium 134 L (137-145) mmol/L Carbon Dioxide 19 L (22-30) mmol/L BUN 45 H (7-17) mg/dL Glucose 132 H (74-99) mg/dL POC Glucose (mg/dL) 129 H 201 H (75-99) mg/dL Total Protein 6.2 L (6.3-8.2) g/dL Albumin 2.7 L (3.5-5.0) g/dL Microbiology - Last 24 Hours (Table) 12/13/19 12:10 Blood Culture - Preliminary Blood No Growth after 24 hours
[2019-12-15] MEDS: SENNOSIDES-DOCUSATE SODIUM 1 EACH TAB PO PRN ×2 (13:02→13:03)
[2019-12-15] MEDS: POLYETHYLENE GLYCOL 3350 17 GM POWD.PACK PO SCH (13:03)
[2019-12-15] MEDS: ACETAMINOPHEN TAB 325 MG TAB PO PRN (13:08)
--- NOTE | 2019-12-15 13:10 | P.PN ---
Subjective Progress Note Date: 12/15/19 This is an 84-year-old female patient of Dr. 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 Patient had a recent hospitalization in October for small bowel obstruction secondary to incarcerated umbilical hernia status post repair of the hernia with resolution of the bowel obstruction. Following surgery, patient was discharge to [facility] for subacute rehab. Patient subsequently [facility] Just prior to surgery, patient was found to have new DVT and an IVC filter was placed on November 30 just prior to her laminectomy. Patient stayed in the hospital for one week and then was discharged back to [facility]. Her family states that she has gained a total of [address] [facility] for her surgery. Patient has had no appetite and eating very little for the past 2 weeks. She has also been sleeping most of the day and night for the past 2 weeks. Patient complains of some shortness of breath. She has had difficulty with uncontrolled A. fib from Tuesday to Tuesday of this week as patient's blood pressure was low and it was difficult managing her medications. Lasix was also causing her blood pressure to lower. Yesterday patient started not voiding. There has also been concerns about mental status changes on and off over this period of time. Patient has been on oxygen since surgery November 30. Patient was placed on heparin subcu following laminectomy and was scheduled to start eliquis today. Patient was brought into [facility] emergency center by ambulance. She was found to be afebrile. EKG was a atrial fibrillation with T- wave inversion and ST depression. Heart rate running in 80s to 114. Blood pressure initially 93/78. WBC 16.5, hemoglobin 10.9, sodium 134, BUN 45 and creatinine 1.15, CO2 21, blood sugar 141. ProBNP 1430, albumin 2.9, influenza and 10 seeing negative. Urinalysis cloudy, esterase small, bacteria rare, blood small. Lactic acid 2.3. Chest x-ray shows no acute process. Patient was given 1 dose of IV Lasix and antibiotics in the emergency center. Patient admitted to the cardiac stepdown unit and cardiology consult in place. Patient's daughter Bree Feng is POA. 12/15 patient assessed today. She underwent a CTA chest yesterday suggestive right upper lobe pulmonary embolism with density within the posterior left lung base of 1.6 cm. No plan for biopsy of the lesion. Patient was seen by oncology who recommended starting patient on therapeutic Lovenox and holding elliquis. Unclear if pulmonary embolism is new or old as patient had IVC filter placed prior to the surgery. Venous Doppler of lower extremities ordered. DVT of the left lower extremity is known. Vitals today suggest a temp of 98.4 pulse 80 blood pressure 95/58 patient's currently 95% on 3 L. Patient will be switched to eliquis in the evening. Patient is much alert and slept better last night. Continue Remeron at the current dose. Angel Luis bandages to the lower extremities to be continued. ROS Constitutional: Denies chills, Denies fever, Denies lethargy, Denies malaise, Denies poor appetite, Denies weakness, Denies weight loss Eyes: denies decreased vision, denies diplopia, denies discharge, denies pain Ears: deny: decreased hearing Ears, nose, mouth and throat: Denies dental pain, Denies headache, Denies nasal discharge, Denies nose pain Cardiovascular: Denies chest pain, Denies decreased exercise tolerance, endorses bilateral lower extremity edema, Denies high blood pressure, Denies irregular heart beat, Denies palpitations, Denies paroxysmal nocturnal dyspnea, Denies rapid heart beat, endorses shortness of breath Respiratory: Denies congestion, Denies cough, Denies cough with sputum, positive for dyspnea, positive for home oxygen, Denies wheezing Gastrointestinal: Denies abdominal pain, Denies change in bowel habits, Denies coffee ground emesis, Denies early satiety, Denies excessive gas, Denies heartburn, Denies hematemesis, Denies hematochezia, Denies loss of appetite, Denies nausea, Denies vomiting Genitourinary: Denies dysuria, Denies flank pain, Denies kidney stones, Denies menorrhagia, Denies urgency, Denies urinary frequency Musculoskeletal: gait dysfunction, positive for limitation of motion, Denies morning stiffness, Denies muscle cramps Integumentary: Denies rash, Denies wounds, Denies brittle nails, Denies change in hair/nails, Denies darkening of skin Neurological: Denies balance difficulties, Denies change in speech, Denies double vision, Denies gait dysfunction, Denies loss of vision, Denies motor disturbance, Denies numbness, Denies paralysis, Denies paresthesias, Denies seizures positive for confusion Psychiatric: Denies anxiety, Denies depression Endocrine: Denies excessive sweating, Denies excessive thirst, Denies high blood sugars, Denies palpitations Hematologic/Lymphatic: Denies easy bruising, Denies lymphadenopathy Objective - Vital Signs Vital signs: Vital Signs Temp 98.4 F 12/15/19 04:00 Pulse 80 12/15/19 04:00 Resp 18 12/15/19 04:00 BP 95/58 12/15/19 04:00 Pulse Ox 95 12/15/19 04:00 Intake & Output 12/14/19 12/15/19 12/15/19 18:59 06:59 18:59 Intake Total 200 240 480 Output Total 675 900 Balance -475 -660 480 Weight 135.5 kg 137.5 kg Intake: Oral 200 240 480 Output: Urine 675 900 Other: Voiding Method Indwelling Catheter Indwelling Catheter - Exam Gen: This is an 84-year-old female. Patient is resting in bed and appears to be comfortable. and daughter at bedside. HEENT: Head is atraumatic, normocephalic. Pupils equal, round. Sclerae is anicteric. NECK: Supple. No JVD. No lymphadenopathy. No thyromegaly. LUNGS: Clear to auscultation. No wheezes or rhonchi. No intercostal retractions. HEART: Irregularly irregular rate and rhythm. Systolic murmur. ABDOMEN: Soft. Bowel sounds are present. No masses. No abdominal tenderness EXTREMITIES: 3+ bilateral pedal edema covered with ANGEL LUIS wraps , shiny skin, chronic dark skin changes noted to bilateral lower legs. Purplish discoloration of the toes No calf tenderness. NEUROLOGICAL: Patient is awake, alert and oriented x3. Cranial nerves 2 through 12 are grossly intact. Generalized weakness noted. - Labs CBC & Chem 7: 12/15/19 06:14 12/15/19 06:14 Labs: Abnormal Lab Results - Last 24 Hours (Table) 12/14/19 12/14/19 12/15/19 Range/Units 16:50 20:09 06:14 WBC 16.4 H (3.8-10.6) k/uL Hgb 9.8 L (11.4-16.0) gm/dL Hct 32.0 L (34.0-46.0) % MCHC 30.5 L (31.0-37.0) g/dL RDW 18.4 H (11.5-15.5) % Neutrophils # 13.5 H (1.3-7.7) k/uL Basophils # 0.3 H (0-0.2) k/uL Sodium (137-145) mmol/L Carbon Dioxide (22-30) mmol/L BUN (7-17) mg/dL Glucose (74-99) mg/dL POC Glucose (mg/dL) 104 H 191 H (75-99) mg/dL Total Protein (6.3-8.2) g/dL Albumin (3.5-5.0) g/dL 12/15/19 12/15/19 Range/Units 06:14 06:36 WBC (3.8-10.6) k/uL Hgb (11.4-16.0) gm/dL Hct (34.0-46.0) % MCHC (31.0-37.0) g/dL RDW (11.5-15.5) % Neutrophils # (1.3-7.7) k/uL Basophils # (0-0.2) k/uL Sodium 134 L (137-145) mmol/L Carbon Dioxide 19 L (22-30) mmol/L BUN 45 H (7-17) mg/dL Glucose 132 H (74-99) mg/dL POC Glucose (mg/dL) 129 H (75-99) mg/dL Total Protein 6.2 L (6.3-8.2) g/dL Albumin 2.7 L (3.5-5.0) g/dL Microbiology - Last 24 Hours (Table) 12/13/19 12:10 Blood Culture - Preliminary Blood No Growth after 24 hours Assessment and Plan Plan: 1. Lower extremity edema and anasarca with third spacing without acute heart failure. Angel Luis wraps of bilateral lower extremities, midodrine started to support blood pressure and Lasix 20 mg IV twice daily, dietitian consult for protein supplementation, Remeron to improve appetite, cardiology consult. 2. Shortness of breath, secondary to acute PE. Consult with Dr. Patricia for possible new PE while on anticoagulation. Patient was placed on heparin subcu following laminectomy and was scheduled to start eliquis today. 3. 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 Continue eliquis 5 mg twice daily. Patient recently underwent [place] filter on November 30 prior to laminectomy surgery. 4. Leukocytosis and lactic acidosis of unclear etiology, possibly related to renal failure. Currently no sign of infection. 5. Acute kidney injury with chronic kidney disease stage II. Baseline creatinine is 0.5. Monitor, avoid nephrotoxic agents 6. Paroxysmal atrial fibrillation. Continue metoprolol 50 mg twice daily, digoxin 125 g daily, Cardizem CD 120 mg daily. 7. Valvular heart disease with severe tricuspid regurgitation, aortic stenosis with mean gradient of 36 mmHg, mild mitral regurgitation. Repeat echocardiogram has been ordered. 8. Severe pulmonary hypertension with RVSP 60 mmHg. 9. Hypertension, history. 10. Hyperlipidemia. Continue atorvastatin 10 mg at bedtime. 11. Diabetes mellitus type 2. Hold glipizide and metformin. Start NovoLog scale before meals and at bedtime. 12. Spinal stenosis status post laminectomy November 30, stable. PT and OT evaluations. 13. Recent hospitalization small bowel obstruction secondary to incarcerated umbilical hernia status post repair of the hernia, stable. 14. Recurrent depression. Continue Wellbutrin SR 150 mg twice daily, Remeron 7.5 mg at bedtime. 10. Gastroesophageal reflux disease and GI prophylaxis. Protonix oral. 12. DVT prophylaxis. Eliquis. Discharge plan: Return to [facility], most likely on Tuesday/Tuesday.
[2019-12-15 17:22] LABS: Glucose,Whole Blood 210 mg/dL (75-99)
[2019-12-15] MEDS: ATORVASTATIN 10 MG TAB PO SCH (20:00)
[2019-12-15] MEDS: APIXABAN 5 MG TAB PO SCH (20:00)
[2019-12-15] MEDS: MIRTAZAPINE 15 MG TAB PO SCH (20:00)
[2019-12-15 20:18] LABS: Glucose,Whole Blood 184 mg/dL (75-99)
[2019-12-16] MEDS: MIDODRINE 5 MG TAB PO SCH ×2 (06:11→17:33)
[2019-12-16] MEDS: PANTOPRAZOLE 40 MG TABLET PO SCH (06:11)
[2019-12-16] MEDS: DIGOXIN 125 MCG TAB PO SCH (06:11)
[2019-12-16] MEDS: INSULIN ASPART (NovoLOG) 100 UNIT/ML VIAL SQ SCH ×4 (06:14→20:52)
[2019-12-16 06:15] LABS: Glucose,Whole Blood 137 mg/dL (75-99)
[2019-12-16 06:55] LABS: Anisocytosis Slight; Basophils # (A) 0.1 k/uL (0-0.2); Basophils % (A) 1 %; Eosinophils # (A) 0.2 k/uL (0-0.7); Eosinophils % (A) 1 %; HCT 31.3 % (34.0-46.0); HGB 9.3 gm/dL (11.4-16.0); Hypochromasia Marked; Lymphocytes # (A) 1.3 k/uL (1.0-4.8); Lymphocytes % (A) 11 %; MCH 25.2 pg (25.0-35.0); MCHC 29.6 g/dL (31.0-37.0); MCV 85.2 fL (80.0-100.0); Mean Platelet Volume 9.3; Monocytes # (A) 0.7 k/uL (0-1.0); Monocytes % (A) 6 %; Neutrophils % (A) 80 %; Platelet Count 248 k/uL (150-450); RBC 3.67 m/uL (3.80-5.40); RDW 19.1 % (11.5-15.5); WBC 12.5 k/uL (3.8-10.6)
[2019-12-16 07:16] LABS: ALT 8 U/L (4-34); AST 23 U/L (14-36); African American GFR (CKD) >90 (>60 ml/min/1.73 sqM); Albumin 2.5 g/dL (3.5-5.0); Alkaline Phosphatase 84 U/L (38-126); Anion Gap 8 mmol/L; Blood Urea Nitrogen 41 mg/dL (7-17); Calcium 8.2 mg/dL (8.4-10.2); Carbon Dioxide 21 mmol/L (22-30); Chloride 103 mmol/L (98-107); Glucose 117 mg/dL (74-99); Non-African American GFR(CKD) 82 (>60 ml/min/1.73 sqM); Potassium 4.9 mmol/L (3.5-5.1); Sodium 132 mmol/L (137-145); Total Bilirubin 0.5 mg/dL (0.2-1.3); Total Protein 5.6 g/dL (6.3-8.2)
[2019-12-16] MEDS: FUROSEMIDE 10 MG/ML 2 ML VIAL IV SCH ×2 (09:34→20:51)
[2019-12-16] MEDS: LACTULOSE 20 GM/30 ML CUP PO SCH ×2 (09:34→17:33)
[2019-12-16] MEDS: POLYETHYLENE GLYCOL 3350 17 GM POWD.PACK PO SCH (09:34)
[2019-12-16] MEDS: MAGNESIUM OXIDE 400 MG TAB PO SCH ×2 (09:34→17:33)
[2019-12-16] MEDS: METOPROLOL TARTRATE 50 MG TAB PO SCH ×2 (09:34→20:51)
[2019-12-16] MEDS: APIXABAN 5 MG TAB PO SCH ×2 (09:34→20:51)
[2019-12-16] MEDS: DILTIAZEM CD 120 MG CAP.ER.24H PO SCH (09:34)
[2019-12-16] MEDS: LIDOCAINE 4% TOPICAL SCH (09:34)
[2019-12-16] MEDS: buPROPion SR 150 MG TABLET.ER PO SCH ×2 (09:34→20:52)
[2019-12-16 12:48] LABS: Glucose,Whole Blood 132 mg/dL (75-99)
--- NOTE | 2019-12-16 13:40 | P.PN ---
Subjective Progress Note Date: 12/16/19 Patient is currently resting comfortably in bed with family at bedside. She appears more awake today compared to yesterday. She denies any chest pain, chest pressure, palpitations, dizziness, or lightheadedness. She does have some shortness of breath when she works with therapy, however is fine at rest. potline monitor shows persistent atrial fibrillation with heart rates in the 70s to 80s. Blood pressure remained stable overnight. 01/15/2020: The patient is currently resting comfortably in bed. She states she is tired she did work with therapy this morning. She states her breathing is better, but she does get shortness of breath with exertion. She denies any chest pain, chest pressure, palpitations, dizziness, or lightheadedness. Recent echocardiogram shows normal LV function with grade 2 diastolic dysfunction. potline monitor shows persistent atrial fibrillation with average rates in the 80s. Vital signs stable overnight with average pressures in the 90- low 100's systolic GENERAL: Well-appearing obese female, well-nourished and in no acute distress. NECK: Supple without JVD or thyromegaly. LUNGS: Breath sounds diminished to auscultation bilaterally. Respiration equal and unlabored. No wheezes, rales or rhonchi. ABDOMEN: Tender in left lower quadrant to palpation. HEART: Irregular rate and rhythm without rubs or gallops. Systolic murmur audible. S1 and S2 heard. EXTREMITIES: Limited range of motion.+2 lower extremity edema. No clubbing or cyanosis. Peripheral pulses diminished. LABS: WBC 12.5, hemoglobin 9.3, hematocrit 31.3, platelet 248, sodium 132, potassium 4.9, BUN 41, creatinine 0.68 Impression: #1 Right upper lobe pulmonary emboli,on anticoagulation #2 history of of atrial fibrillation, currently rate controlled #3 chronic lymphedema #4 DVT, left lower extremity #5 diastolic heart failure #6 hypotension, secondary to medications and diuresis Plan: Continue low-dose diuretics. Encourage ambulation to facilitate fluid movement; recommend up to chair at least twice daily. No additional recommendations at this time, therefore cardiology will sign off. Objective - Vital Signs Vital signs: Vital Signs Temp 97.6 F 12/16/19 08:00 Pulse 91 12/16/19 08:00 Resp 18 12/16/19 08:00 BP 108/56 12/16/19 08:00 Pulse Ox 100 12/16/19 08:00 Intake & Output 12/15/19 12/16/19 12/16/19 18:59 06:59 18:59 Intake Total 720 240 200 Output Total 375 500 Balance 345 -260 200 Weight 136 kg Intake: Oral 720 240 200 Output: Urine 375 500 Other: Voiding Method Indwelling Catheter Indwelling Catheter Indwelling Catheter - Labs CBC & Chem 7: 12/16/19 05:48 12/16/19 05:48 Labs: Abnormal Lab Results - Last 24 Hours (Table) 12/15/19 12/15/19 12/16/19 Range/Units 17:01 20:14 05:48 WBC 12.5 H (3.8-10.6) k/uL RBC 3.67 L (3.80-5.40) m/uL Hgb 9.3 L (11.4-16.0) gm/dL Hct 31.3 L (34.0-46.0) % MCHC 29.6 L (31.0-37.0) g/dL RDW 19.1 H (11.5-15.5) % Neutrophils # 10.0 H (1.3-7.7) k/uL Sodium (137-145) mmol/L Carbon Dioxide (22-30) mmol/L BUN (7-17) mg/dL Glucose (74-99) mg/dL POC Glucose (mg/dL) 210 H 184 H (75-99) mg/dL Calcium (8.4-10.2) mg/dL Total Protein (6.3-8.2) g/dL Albumin (3.5-5.0) g/dL 12/16/19 12/16/19 12/16/19 Range/Units 05:48 06:13 12:45 WBC (3.8-10.6) k/uL RBC (3.80-5.40) m/uL Hgb (11.4-16.0) gm/dL Hct (34.0-46.0) % MCHC (31.0-37.0) g/dL RDW (11.5-15.5) % Neutrophils # (1.3-7.7) k/uL Sodium 132 L (137-145) mmol/L Carbon Dioxide 21 L (22-30) mmol/L BUN 41 H (7-17) mg/dL Glucose 117 H (74-99) mg/dL POC Glucose (mg/dL) 137 H 132 H (75-99) mg/dL Calcium 8.2 L (8.4-10.2) mg/dL Total Protein 5.6 L (6.3-8.2) g/dL Albumin 2.5 L (3.5-5.0) g/dL Microbiology - Last 24 Hours (Table) 12/13/19 12:10 Blood Culture - Preliminary Blood No Growth after 48 hours
--- NOTE | 2019-12-16 13:59 | ECHOF ---
Referral Reason:LVF, valvular disease MEASUREMENTS -------- HEIGHT: 165.1 cm WEIGHT: 135.2 kg BP: 90/52 IVSd: 1.0 cm (0.6 - 1.1) LVIDd: 4.2 cm (3.9 - 5.3) LVPWd: 1.2 cm (0.6 - 1.1) IVSs: 1.4 cm LVIDs: 2.7 cm LVPWs: 1.6 cm LA Diam: 4.6 cm (2.7 - 3.8) RVIDd: 3.3 cm (< 3.3) LAESV Index (A-L): 29.19 ml/m Ao Diam: 3.5 cm (2.0 - 3.7) EPSS: 0.5 cm AV maxP.44 mmHg AV meanP.82 mmHg RAP: 5.00 mmHg RVSP: 29.26 mmHg MV EF SLOPE: 84.98 mm/s (70 - 150) MV EXCURSION: 18.74 mm (> 18.000) FINDINGS -------- Atrial fibrillation. Morbid Obesity This was a techncally difficult study with suboptimal views, , Lumason utilized for enhancement of im ages. The left ventricular size is normal. There is mild concentric left ventricular hypertrophy. Overa ll left ventricular systolic function is normal with, an EF between 55 - 60 %. The right ventricle is normal in size. The left atrium is moderately dilated. LA is moderately dilated 34-39 ml/m2 The right atrial size is normal. 5.0mg OF Lumason UTLIZED: 2 OR MORE WALL SEGMENTS NOT VISUALIZED. There is moderate aortic stenosis present. Peak/mean gradient across the Aortic Valve is 35.44mmHg / 20.82mmHg. Mild mitral annular calcification present. Mild mitral regurgitation is present. Mild tricuspid regurgitation present. Right ventricular systolic pressure is normal at < 35 mmHg. There is no evidence of pulmonary hypertension. There is no pulmonic regurgitation present. The aortic root size is normal. There is no pericardial effusion. CONCLUSIONS -------- 1. Atrial fibrillation. 2. Morbid Obesity 3. This was a techncally difficult study with suboptimal views, , Lumason utilized for enhancement of images. 4. The left ventricular size is normal. 5. There is mild concentric left ventricular hypertrophy. 6. Overall left ventricular systolic function is normal with, an EF between 55 - 60 %. 7. The right ventricle is normal in size. 8. The left atrium is moderately dilated. 9. LA is moderately dilated 34-39 ml/m2 10. The right atrial size is normal. 11. 5.0mg OF Lumason UTLIZED: 2 OR MORE WALL SEGMENTS NOT VISUALIZED. 12. There is moderate aortic stenosis present. 13. Peak/mean gradient across the Aortic Valve is 35.44mmHg / 20.82mmHg. 14. Mild mitral annular calcification present. 15. Mild mitral regurgitation is present. 16. Mild tricuspid regurgitation present. 17. Right ventricular systolic pressure is normal at < 35 mmHg. 18. There is no evidence of pulmonary hypertension. 19. There is no pulmonic regurgitation present. 20. The aortic root size is normal. 21. There is no pericardial effusion. SOCIAL MEDIA INTERN: Anna Lizama RDCS
--- NOTE | 2019-12-16 15:41 | P.PN ---
Subjective Progress Note Date: 12/16/19 This is an 84-year-old female patient of Dr. 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 Patient had a recent hospitalization in October for small bowel obstruction secondary to incarcerated umbilical hernia status post repair of the hernia with resolution of the bowel obstruction. Following surgery, patient was discharge to [facility] for subacute rehab. Patient subsequently underwent laminectomy L1 through L4 at [facility] on November 30. Just prior to surgery, patient was found to have new DVT and an IVC filter was placed on November 30 just prior to her laminectomy. Patient stayed in the hospital for one week and then was discharged back to [facility]. Her family states that she has gained a total of 28 pounds since she left [facility] for her surgery. Patient has had no appetite and eating very little for the past 2 weeks. She has also been sleeping most of the day and night for the past 2 weeks. Patient complains of some shortness of breath. She has had difficulty with uncontrolled A. fib from Tuesday to Tuesday of this week as patient's blood pressure was low and it was difficult managing her medications. Lasix was also causing her blood pressure to lower. Yesterday patient started not voiding. There has also been concerns about mental status changes on and off over this period of time. Patient has been on oxygen since surgery November 30. Patient was placed on heparin subcu following laminectomy and was scheduled to start eliquis today. Patient was brought into [facility] emergency center by ambulance. She was found to be afebrile. EKG was a atrial fibrillation with T- wave inversion and ST depression. Heart rate running in 80s to 114. Blood pressure initially 93/78. WBC 16.5, hemoglobin 10.9, sodium 134, BUN 45 and creatinine 1.15, CO2 21, blood sugar 141. ProBNP 1430, albumin 2.9, influenza and 10 seeing negative. Urinalysis cloudy, esterase small, bacteria rare, blood small. Lactic acid 2.3. Chest x-ray shows no acute process. Patient was given 1 dose of IV Lasix and antibiotics in the emergency center. Patient admitted to the cardiac stepdown unit and cardiology consult in place. Patient's daughter Bree Feng is POA. 12/15 patient assessed today. She underwent a CTA chest yesterday suggestive right upper lobe pulmonary embolism with density within the posterior left lung base of 1.6 cm. No plan for biopsy of the lesion. Patient was seen by oncology who recommended starting patient on therapeutic Lovenox and holding elliquis. Unclear if pulmonary embolism is new or old as patient had IVC filter placed prior to the surgery. Venous Doppler of lower extremities ordered. DVT of the left lower extremity is known. Vitals today suggest a temp of 98.4 pulse 80 blood pressure 95/58 patient's currently 95% on 3 L. Patient will be switched to eliquis in the evening. Patient is much alert and slept better last night. Continue Remeron at the current dose. Angel Luis bandages to the lower extremities to be continued. 12/16 patient examined bedside is much more alert and answered questions appropriately. Patient refused PT this morning, patient's blood pressure today is 108/56 currently on 3 L of oxygen. Checked oxygen off nasal cannula patient saturating at 96% on room air suggest a leukocytosis of 12.5 hemoglobin 9.3 platelets 248 sodium 132 BUN 41 and creatinine 0.68 blood sugars ranging from 137 to210 . Currently on eliquis for the PE. Patient is doing well possible discharge tomorrow. If patient is sitting on the chair 40 catheter can be removed ROS Constitutional: Denies chills, Denies fever, Denies lethargy, Denies malaise, Denies poor appetite, Denies weakness, Denies weight loss Eyes: denies decreased vision, denies diplopia, denies discharge, denies pain Ears: deny: decreased hearing Ears, nose, mouth and throat: Denies dental pain, Denies headache, Denies nasal discharge, Denies nose pain Cardiovascular: Denies chest pain, Denies decreased exercise tolerance, endorses bilateral lower extremity edema, Denies high blood pressure, Denies irregular heart beat, Denies palpitations, Denies paroxysmal nocturnal dyspnea, Denies rapid heart beat, endorses shortness of breath Respiratory: Denies congestion, Denies cough, Denies cough with sputum, positive for dyspnea, positive for home oxygen, Denies wheezing Gastrointestinal: Denies abdominal pain, Denies change in bowel habits, Denies coffee ground emesis, Denies early satiety, Denies excessive gas, Denies heartburn, Denies hematemesis, Denies hematochezia, Denies loss of appetite, Denies nausea, Denies vomiting Genitourinary: Denies dysuria, Denies flank pain, Denies kidney stones, Denies menorrhagia, Denies urgency, Denies urinary frequency Musculoskeletal: gait dysfunction, positive for limitation of motion, Denies morning stiffness, Denies muscle cramps Integumentary: Denies rash, Denies wounds, Denies brittle nails, Denies change in hair/nails, Denies darkening of skin Neurological: Denies balance difficulties, Denies change in speech, Denies double vision, Denies gait dysfunction, Denies loss of vision, Denies motor disturbance, Denies numbness, Denies paralysis, Denies paresthesias, Denies seizures positive for confusion Psychiatric: Denies anxiety, Denies depression Endocrine: Denies excessive sweating, Denies excessive thirst, Denies high blood sugars, Denies palpitations Hematologic/Lymphatic: Denies easy bruising, Denies lymphadenopathy Objective - Vital Signs Vital signs: Vital Signs Temp 97.6 F 12/16/19 08:00 Pulse 91 12/16/19 08:00 Resp 18 12/16/19 08:00 BP 108/56 12/16/19 08:00 Pulse Ox 100 12/16/19 08:00 Intake & Output 12/15/19 12/16/19 12/16/19 18:59 06:59 18:59 Intake Total 720 240 Output Total 375 500 Balance 345 -260 Weight 136 kg Intake: Oral 720 240 Output: Urine 375 500 Other: Voiding Method Indwelling Catheter Indwelling Catheter Indwelling Catheter - Exam Gen: This is an 84-year-old female. Patient is resting in bed and appears to be comfortable. and daughter at bedside. HEENT: Head is atraumatic, normocephalic. Pupils equal, round. Sclerae is anic teric. NECK: Supple. No JVD. No lymphadenopathy. No thyromegaly. LUNGS: Clear to auscultation. No wheezes or rhonchi. No intercostal retractions. HEART: Irregularly irregular rate and rhythm. Systolic murmur. ABDOMEN: Soft. Bowel sounds are present. No masses. No abdominal tenderness EXTREMITIES: 3+ bilateral pedal edema covered with ANGEL LUIS wraps , shiny skin, chronic dark skin changes noted to bilateral lower legs. Purplish discoloration of the toes No calf tenderness. NEUROLOGICAL: Patient is awake, alert and oriented x3. Cranial nerves 2 through 12 are grossly intact. Generalized weakness noted. - Labs CBC & Chem 7: 12/16/19 05:48 12/16/19 05:48 Labs: Abnormal Lab Results - Last 24 Hours (Table) 12/15/19 12/15/19 12/15/19 Range/Units 12:07 17:01 20:14 WBC (3.8-10.6) k/uL RBC (3.80-5.40) m/uL Hgb (11.4-16.0) gm/dL Hct (34.0-46.0) % MCHC (31.0-37.0) g/dL RDW (11.5-15.5) % Neutrophils # (1.3-7.7) k/uL Sodium (137-145) mmol/L Carbon Dioxide (22-30) mmol/L BUN (7-17) mg/dL Glucose (74-99) mg/dL POC Glucose (mg/dL) 201 H 210 H 184 H (75-99) mg/dL Calcium (8.4-10.2) mg/dL Total Protein (6.3-8.2) g/dL Albumin (3.5-5.0) g/dL 12/16/19 12/16/19 12/16/19 Range/Units 05:48 05:48 06:13 WBC 12.5 H (3.8-10.6) k/uL RBC 3.67 L (3.80-5.40) m/uL Hgb 9.3 L (11.4-16.0) gm/dL Hct 31.3 L (34.0-46.0) % MCHC 29.6 L (31.0-37.0) g/dL RDW 19.1 H (11.5-15.5) % Neutrophils # 10.0 H (1.3-7.7) k/uL Sodium 132 L (137-145) mmol/L Carbon Dioxide 21 L (22-30) mmol/L BUN 41 H (7-17) mg/dL Glucose 117 H (74-99) mg/dL POC Glucose (mg/dL) 137 H (75-99) mg/dL Calcium 8.2 L (8.4-10.2) mg/dL Total Protein 5.6 L (6.3-8.2) g/dL Albumin 2.5 L (3.5-5.0) g/dL Microbiology - Last 24 Hours (Table) 12/13/19 12:10 Blood Culture - Preliminary Blood No Growth after 48 hours Assessment and Plan Plan: 1. Lower extremity edema and anasarca with third spacing without acute heart failure. Angel Luis wraps of bilateral lower extremities, midodrine started to support blood pressure and Lasix 20 mg IV twice daily, dietitian consult for protein supplementation, Remeron to improve appetite, cardiology consult. 2. Shortness of breath, secondary to acute PE, improved . Consult with Dr. Patricia for possible new PE while on anticoagulation. Patient was placed on heparin subcu following laminectomy and was scheduled to start eliquis today. 3. History of multiple DVTs and PE on detention anticoagulation. Continue eliquis 5 mg twice daily. Patient recently underwent Malik filter on November 30 prior to laminectomy surgery. 4. Leukocytosis and lactic acidosis of unclear etiology, possibly related to renal failure. Currently no sign of infection. 5. Acute kidney injury with chronic kidney disease stage II. Baseline creatinine is 0.5. Monitor, avoid nephrotoxic agents 6. Paroxysmal atrial fibrillation. Continue metoprolol 50 mg twice daily, digoxin 125 g daily, Cardizem CD 120 mg daily. 7. Valvular heart disease with severe tricuspid regurgitation, aortic stenosis with mean gradient of 36 mmHg, mild mitral regurgitation. Repeat echocardiogram has been ordered. 8. Severe pulmonary hypertension with RVSP 60 mmHg. 9. Hypertension, history. 10. Hyperlipidemia. Continue atorvastatin 10 mg at bedtime. 11. Diabetes mellitus type 2. Hold glipizide and metformin. Start NovoLog scale before meals and at bedtime. 12. Spinal stenosis status post laminectomy November 30, stable. PT and OT evaluations. 13. Recent hospitalization small bowel obstruction secondary to incarcerated umbilical hernia status post repair of the hernia, stable. 14. Recurrent depression. Continue Wellbutrin SR 150 mg twice daily, Remeron 7.5 mg at bedtime. 10. Gastroesophageal reflux disease and GI prophylaxis. Protonix oral. 12. DVT prophylaxis. Eliquis. Discharge plan: Return to [facility], most likely on Tuesday/Tuesday.
[2019-12-16 16:57] LABS: Glucose,Whole Blood 151 mg/dL (75-99)
--- NOTE | 2019-12-16 18:28 | P.PN ---
Subjective Progress Note Date: 12/15/19 The patient remains quite weak. She is on oxygen but does not appear to be overtly short of breath. There is generalized edema noted./Chills/nausea/vomiting. She is quite lethargic. Appetite is dimini shed. Objective - Vital Signs Vital signs: Vital Signs Temp 97.6 F 12/16/19 08:00 Pulse 76 12/16/19 12:00 Resp 19 12/16/19 12:00 BP 99/58 12/16/19 12:00 Pulse Ox 99 12/16/19 12:00 Intake & Output 12/15/19 12/16/19 12/16/19 18:59 06:59 18:59 Intake Total 720 240 200 Output Total 375 500 Balance 345 -260 200 Weight 136 kg Intake: Oral 720 240 200 Output: Urine 375 500 Other: Voiding Method Indwelling Catheter Indwelling Catheter Indwelling Catheter - Constitutional General appearance: Present: no acute distress - EENT Eyes: Present: EOMI ENT: Present: hearing grossly normal, normal oropharynx - Respiratory Respiratory: bilateral: diminished - Cardiovascular Rhythm: regular Heart sounds: normal: S1, S2 - Gastrointestinal General gastrointestinal: Present: normal bowel sounds, soft - Integumentary Integumentary: Present: normal - Neurologic Neurologic: Present: CNII-XII intact - Musculoskeletal Musculoskeletal: Present: generalized weakness, strength equal bilaterally - Psychiatric Psychiatric: Present: A&O x's 3 - Labs CBC & Chem 7: 12/16/19 05:48 12/16/19 05:48 Labs: Abnormal Lab Results - Last 24 Hours (Table) 12/15/19 12/16/19 12/16/19 Range/Units 20:14 05:48 05:48 WBC 12.5 H (3.8-10.6) k/uL RBC 3.67 L (3.80-5.40) m/uL Hgb 9.3 L (11.4-16.0) gm/dL Hct 31.3 L (34.0-46.0) % MCHC 29.6 L (31.0-37.0) g/dL RDW 19.1 H (11.5-15.5) % Neutrophils # 10.0 H (1.3-7.7) k/uL Sodium 132 L (137-145) mmol/L Carbon Dioxide 21 L (22-30) mmol/L BUN 41 H (7-17) mg/dL Glucose 117 H (74-99) mg/dL POC Glucose (mg/dL) 184 H (75-99) mg/dL Calcium 8.2 L (8.4-10.2) mg/dL Total Protein 5.6 L (6.3-8.2) g/dL Albumin 2.5 L (3.5-5.0) g/dL 12/16/19 12/16/19 12/16/19 Range/Units 06:13 12:45 16:55 WBC (3.8-10.6) k/uL RBC (3.80-5.40) m/uL Hgb (11.4-16.0) gm/dL Hct (34.0-46.0) % MCHC (31.0-37.0) g/dL RDW (11.5-15.5) % Neutrophils # (1.3-7.7) k/uL Sodium (137-145) mmol/L Carbon Dioxide (22-30) mmol/L BUN (7-17) mg/dL Glucose (74-99) mg/dL POC Glucose (mg/dL) 137 H 132 H 151 H (75-99) mg/dL Calcium (8.4-10.2) mg/dL Total Protein (6.3-8.2) g/dL Albumin (3.5-5.0) g/dL Microbiology - Last 24 Hours (Table) 12/13/19 12:10 Blood Culture - Preliminary Blood No Growth after 72 hours Assessment and Plan (1) Pulmonary embolism Narrative/Plan: The patient's CT scan this admission showed a pulmonary embolus of the right upper lobe. The main issue in this case is whether this is a new embolus or not, and whether this represents failure of anticoagulation as well as of her IVC filter. At the time of her initial evaluation, these issues were not clear due to which the patient was placed on Lovenox. - The case was subsequently discussed personally with radiology. Scans were reviewed again. It is felt that the clots were nonocclusive and off low density and therefore most likely chronic. - It would be extremely unlikely for IVC failure to occurred so soon after placement. It was also confirmed with radiology that the IVC filter appear to be in good position at the L3/L4 level. Therefore at this time IVC failure appears to be very unlikely but cannot be totally ruled out, since, as noted we do not have prior CT scans to compare The case was also discussed in detail with the admitting service. Initially the patient and her family did not know if the patient had been on eliquis at the time of admission. It was subsequently confirmed that the patient had actually not started eliquis prior to admission and only received her first dose inpatient. Therefore, even if the clot is new (which is highly unlikely), this does NOT represent eliquis failure. - It is therefore reasonable to stop the Lovenox and put the patient back on eliquis. She can continue on the same, as she requires lifelong anticoagulation for her atrial fibrillation and recurrent DVT anyway. - The patient's family also had questions regarding her current presentation in relation to the PE. They were advised that even if the PE is new, which is highly unlikely, this appears to be fairly limited, being nonocclusive and only involving the right upper lobe therefore would not be expected to cause the multitude of symptms the patient is having. His was also discussed with cardiology. Current Visit: Yes Status: Acute Priority: High Code(s): I26.99 - OTHER PULMONARY EMBOLISM WITHOUT ACUTE COR PULMONALE SNOMED Code(s): 51076854 Plan: Deferred to the admitting service and other consultants for management of her other medical problems
[2019-12-16 20:06] LABS: Glucose,Whole Blood 212 mg/dL (75-99)
[2019-12-16] MEDS: MIRTAZAPINE 15 MG TAB PO SCH (20:51)
[2019-12-16] MEDS: ATORVASTATIN 10 MG TAB PO SCH (20:52)
[2019-12-17] MEDS: ACETAMINOPHEN TAB 325 MG TAB PO PRN (02:25)
[2019-12-17 06:09] LABS: Glucose,Whole Blood 146 mg/dL (75-99)
[2019-12-17] MEDS: PANTOPRAZOLE 40 MG TABLET PO SCH (06:13)
[2019-12-17] MEDS: DIGOXIN 125 MCG TAB PO SCH (06:13)
[2019-12-17] MEDS: MIDODRINE 5 MG TAB PO SCH ×2 (06:37→17:32)
[2019-12-17] MEDS: INSULIN ASPART (NovoLOG) 100 UNIT/ML VIAL SQ SCH ×4 (06:37→20:46)
[2019-12-17] MEDS ORDERED: NA PHOS,M-B/NA PHOS,DI-BA 133 ML ENEMA RECTAL ONE (09:06)
[2019-12-17] MEDS: FUROSEMIDE 10 MG/ML 2 ML VIAL IV SCH ×2 (10:08→20:45)
[2019-12-17] MEDS: APIXABAN 5 MG TAB PO SCH ×2 (10:09→20:46)
[2019-12-17] MEDS: buPROPion SR 150 MG TABLET.ER PO SCH ×2 (10:09→20:51)
[2019-12-17] MEDS: MAGNESIUM OXIDE 400 MG TAB PO SCH ×2 (10:09→17:31)
[2019-12-17] MEDS: LACTULOSE 20 GM/30 ML CUP PO SCH ×2 (10:09→17:31)
[2019-12-17] MEDS: METOPROLOL TARTRATE 50 MG TAB PO SCH ×2 (10:09→20:45)
[2019-12-17] MEDS: DILTIAZEM CD 120 MG CAP.ER.24H PO SCH (10:09)
[2019-12-17] MEDS: POLYETHYLENE GLYCOL 3350 17 GM POWD.PACK PO SCH (10:09)
[2019-12-17] MEDS: LIDOCAINE 4% TOPICAL SCH (10:20)
[2019-12-17 11:56] LABS: Glucose,Whole Blood 193 mg/dL (75-99)
--- NOTE | 2019-12-17 14:29 | P.PN ---
Subjective Progress Note Date: 12/17/19 This is an 84-year-old female patient of Dr. 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 Patient had a recent hospitalization in October for small bowel obstruction secondary to incarcerated umbilical hernia status post repair of the hernia with resolution of the bowel obstruction. Following surgery, patient was discharge to [facility] for subacute rehab. Patient subsequently underwent laminectomy L1 through L4 at [facility] on November 30. Just prior to surgery, patient was found to have new DVT and an IVC filter was placed on November 30 just prior to her laminectomy. Patient stayed in the hospital for one week and then was discharged back to [facility]. Her family states that she has gained a total of 28 pounds since she left [facility] for her surgery. Patient has had no appetite and eating very little for the past 2 weeks. She has also been sleeping most of the day and night for the past 2 weeks. Patient complains of some shortness of breath. She has had difficulty with uncontrolled A. fib from Tuesday to Tuesday of this week as patient's blood pressure was low and it was difficult managing her medications. Lasix was also causing her blood pressure to lower. Yesterday patient started not voiding. There has also been concerns about mental status changes on and off over this period of time. Patient has been on oxygen since surgery November 30. Patient was placed on heparin subcu following laminectomy and was scheduled to start eliquis today. Patient was brought into [facility] emergency center by ambulance. She was found to be afebrile. EKG was a atrial fibrillation with T- wave inversion and ST depression. Heart rate running in 80s to 114. Blood pressure initially 93/78. WBC 16.5, hemoglobin 10.9, sodium 134, BUN 45 and creatinine 1.15, CO2 21, blood sugar 141. ProBNP 1430, albumin 2.9, influenza and 10 seeing negative. Urinalysis cloudy, esterase small, bacteria rare, blood small. Lactic acid 2.3. Chest x-ray shows no acute process. Patient was given 1 dose of IV Lasix and antibiotics in the emergency center. Patient admitted to the cardiac stepdown unit and cardiology consult in place. Patient's daughter Bree Feng is POA. 12/15 patient assessed today. She underwent a CTA chest yesterday suggestive right upper lobe pulmonary embolism with density within the posterior left lung base of 1.6 cm. No plan for biopsy of the lesion. Patient was seen by oncology who recommended starting patient on therapeutic Lovenox and holding elliquis. Unclear if pulmonary embolism is new or old as patient had IVC filter placed prior to the surgery. Venous Doppler of lower extremities ordered. DVT of the left lower extremity is known. Vitals today suggest a temp of 98.4 pulse 80 blood pressure 95/58 patient's currently 95% on 3 L. Patient will be switched to eliquis in the evening. Patient is much alert and slept better last night. Continue Remeron at the current dose. Angel Luis bandages to the lower extremities to be continued. 12/16 patient examined bedside is much more alert and answered questions appropriately. Patient refused PT this morning, patient's blood pressure today is 108/56 currently on 3 L of oxygen. Checked oxygen off nasal cannula patient saturating at 96% on room air suggest a leukocytosis of 12.5 hemoglobin 9.3 platelets 248 sodium 132 BUN 41 and creatinine 0.68 blood sugars ranging from 137 to210 . Currently on eliquis for the PE. Patient is doing well possible discharge tomorrow. If patient is sitting on the chair 40 catheter can be removed 12/17: Patient has been afebrile, heart rate 105, blood pressure 93/75, pulse ox 98% on room air. Blood sugars running between 146 and 212. Patient's respiratory status is stable. She is complaining that she has not had a bowel movement and a fleets enema will be ordered. She is on MiraLAX which will be continued and she is also on stool softener twice daily as needed. Patient has a Guajardo catheter in place that was initiated at the assisted. We will plan to maintain this until patient returns to [facility]. Patient is followed by Dr. Patricia and PE seen on CAT scan most likely is chronic and patient has been transitioned back to eliquis. Echocardiogram reveals EF of 55-60% with mild concentric left ventricle hypertrophy, mild mitral regurgitation, mild tricuspid regurgitation, no pulmonary hypertension.Anticipate discharge to [facility] tomorrow. ROS Constitutional: Denies chills, Denies fever, Denies lethargy, Denies malaise, Denies poor appetite, Denies weakness, Denies weight loss Eyes: denies decreased vision, denies diplopia, denies discharge, denies pain Ears, nose, mouth and throat: Denies dental pain, Denies headache, Denies nasal discharge, Denies nose pain Cardiovascular: Denies chest pain, Denies decreased exercise tolerance, endorses bilateral lower extremity edema, Denies high blood pressure, Denies irregular heart beat, Denies palpitations, Denies paroxysmal nocturnal dyspnea, Denies rapid heart beat, endorses shortness of breath Respiratory: Denies congestion, Denies cough, Denies cough with sputum, positive for dyspnea, positive for home oxygen, Denies wheezing Gastrointestinal: Denies abdominal pain, Denies change in bowel habits, Denies coffee ground emesis, Denies early satiety, Denies excessive gas, Denies heartburn, Denies hematemesis, Denies hematochezia, Denies loss of appetite, Denies nausea, Denies vomiting, reports constipation Genitourinary: Denies dysuria, Denies flank pain, Denies kidney stones, Denies menorrhagia, Denies urgency, Denies urinary frequency Musculoskeletal: gait dysfunction, positive for limitation of motion, Denies morning stiffness, Denies muscle cramps Integumentary: Denies rash, Denies wounds, Denies brittle nails, Denies change in hair/nails, Denies darkening of skin Neurological: Denies balance difficulties, Denies change in speech, Denies double vision, Denies gait dysfunction, Denies loss of vision, Denies motor disturbance, Denies numbness, Denies paralysis, Denies paresthesias, Denies seizures positive for confusion Psychiatric: Denies anxiety, Denies depression Endocrine: Denies excessive sweating, Denies excessive thirst, Denies high blood sugars, Denies palpitations Hematologic/Lymphatic: Denies easy bruising, Denies lymphadenopathy Objective - Vital Signs Vital signs: Vital Signs Temp 98 F 12/17/19 08:30 Pulse 105 H 12/17/19 08:30 Resp 19 12/17/19 08:30 BP 93/75 12/17/19 08:30 Pulse Ox 98 12/17/19 08:30 Intake & Output 12/16/19 12/17/19 12/17/19 18:59 06:59 18:59 Intake Total 320 Output Total 900 400 Balance 320 -900 -400 Weight 134.9 kg Intake: Oral 320 Output: Urine 900 400 Other: Voiding Method Indwelling Catheter Indwelling Catheter Indwelling Catheter - Exam Gen: This is an 84-year-old female. Patient is resting in bed and appears to be comfortable. HEENT: Head is atraumatic, normocephalic. Pupils equal, round. Sclerae is anicteric. NECK: Supple. No JVD. No lymphadenopathy. No thyromegaly. LUNGS: Clear to auscultation. No wheezes or rhonchi. No intercostal retractions. HEART: Irregularly irregular rate and rhythm. Systolic murmur. ABDOMEN: Soft. Bowel sounds are present. No masses. No abdominal tenderness EXTREMITIES: 2+ bilateral pedal edema covered with ANGEL LUIS wraps , shiny skin, chronic dark skin changes noted to bilateral lower legs. Purplish discoloration of the toes No calf tenderness. NEUROLOGICAL: Patient is awake, alert and oriented x3. Cranial nerves 2 through 12 are grossly intact. Generalized weakness noted. - Labs CBC & Chem 7: 12/16/19 05:48 12/16/19 05:48 Labs: Abnormal Lab Results - Last 24 Hours (Table) 12/16/19 12/16/19 12/17/19 Range/Units 16:55 20:04 06:06 POC Glucose (mg/dL) 151 H 212 H 146 H (75-99) mg/dL 12/17/19 Range/Units 11:54 POC Glucose (mg/dL) 193 H (75-99) mg/dL Microbiology - Last 24 Hours (Table) 12/13/19 12:10 Blood Culture - Preliminary Blood No Growth after 72 hours Assessment and Plan Plan: 1. Lower extremity edema and anasarca with third spacing without acute heart failure. Angel Luis wraps of bilateral lower extremities, midodrine started to support blood pressure and Lasix 20 mg IV twice daily, dietitian consult for protein supplementation, Remeron to improve appetite, cardiology consult. 2. Shortness of breath, secondary to chronic PE. Consult with Dr. Patricia appreciated. Continue eliquis.. 3. History of multiple DVTs and PE on intermediate designer anticoagulation. Continue eliquis 5 mg twice daily. Patient recently underwent Malik filter on November 30 prior to laminectomy surgery. 4. Leukocytosis and lactic acidosis of unclear etiology, possibly related to renal failure. Currently no sign of infection. 5. Acute kidney injury with chronic kidney disease stage II. Baseline creatinine is 0.5. Monitor, avoid nephrotoxic agents 6. Paroxysmal atrial fibrillation. Continue metoprolol 50 mg twice daily, digoxin 125 g daily, Cardizem CD 120 mg daily. 7. Valvular heart disease with mild tricuspid regurgitation, moderate aortic stenosis, mild mitral regurgitation. Repeat echocardiogram has been ordered. 8. Severe pulmonary hypertension with RVSP 60 mmHg. no pulmonary hypertension on last echocardiogram. 9. Hypertension, history. 10. Hyperlipidemia. Continue atorvastatin 10 mg at bedtime. 11. Diabetes mellitus type 2. Hold glipizide and metformin. Start NovoLog s roderick before meals and at bedtime. 12. Spinal stenosis status post laminectomy November 30, . PT and OT evaluations. 13. Recent hospitalization small bowel obstruction secondary to incarcerated umbilical hernia status post repair of the hernia, stable. 14. Recurrent depression. Continue Wellbutrin SR 150 mg twice daily, Remeron 7.5 mg at bedtime. 10. Gastroesophageal reflux disease and GI prophylaxis. Protonix oral. 12. DVT prophylaxis. Eliquis. 12. Constipation. Fleets enema, MiraLAX, Senokot Discharge plan: Return to [facility], most likely on Tuesday/Tuesday. Impression and plan of care have been directed as dictated by the signing physician. India Conway nurse practitioner acting as scribe for signing physician.
[2019-12-17 16:53] LABS: Glucose,Whole Blood 152 mg/dL (75-99)
[2019-12-17 17:02] VITALS: RESP 18
[2019-12-17 20:19] LABS: Glucose,Whole Blood 209 mg/dL (75-99)
[2019-12-17] MEDS: ATORVASTATIN 10 MG TAB PO SCH (20:45)
[2019-12-17] MEDS: MIRTAZAPINE 15 MG TAB PO SCH (20:46)
[2019-12-18 03:39] VITALS: TEMP 97.8
[2019-12-18 06:10] LABS: Glucose,Whole Blood 159 mg/dL (75-99)
[2019-12-18] MEDS: INSULIN ASPART (NovoLOG) 100 UNIT/ML VIAL SQ SCH ×2 (06:22→12:27)
[2019-12-18] MEDS: PANTOPRAZOLE 40 MG TABLET PO SCH (06:29)
[2019-12-18] MEDS: MIDODRINE 5 MG TAB PO SCH (06:29)
[2019-12-18] MEDS: DIGOXIN 125 MCG TAB PO SCH (06:29)
[2019-12-18] MEDS: LIDOCAINE 4% TOPICAL SCH (09:51)
[2019-12-18 09:58] VITALS: BP 107/56; PULSE 95
[2019-12-18] MEDS: APIXABAN 5 MG TAB PO SCH (10:10)
[2019-12-18] MEDS: DILTIAZEM CD 120 MG CAP.ER.24H PO SCH (10:10)
[2019-12-18] MEDS: MAGNESIUM OXIDE 400 MG TAB PO SCH (10:10)
[2019-12-18] MEDS: METOPROLOL TARTRATE 50 MG TAB PO SCH (10:10)
[2019-12-18] MEDS: buPROPion SR 150 MG TABLET.ER PO SCH (10:11)
[2019-12-18] MEDS: LACTULOSE 20 GM/30 ML CUP PO SCH (10:11)
[2019-12-18] MEDS: FUROSEMIDE 10 MG/ML 2 ML VIAL IV SCH (10:11)
[2019-12-18] MEDS: POLYETHYLENE GLYCOL 3350 17 GM POWD.PACK PO SCH (10:11)
--- NOTE | 2019-12-18 11:28 | P.DS ---
Providers Date of admission: 12/13/19 15:57 Expected date of discharge: 12/18/19 Attending physician: Robert Alonzo MD Consults: 12/13/19 15:57 Consult Physician Routine Consulting Provider: Lefty Kingston Consult Reason/Comments: CHF, A. fib Do you want consulting provider notified?: Yes 12/14/19 12:48 Consult Physician Routine Consulting Provider: Riley Patricia Consult Reason/Comments: Coagulopathy, possible new PE on anticoagulation Do you want consulting provider notified?: Yes 12/14/19 13:40 Consult Physician Routine Consulting Provider: Wei Gómez Consult Reason/Comments: PE, new? Do you want consulting provider notified?: Yes Primary care physician: Kinjal Liu Hospital Course: This is an 84-year-old female patient of Dr. 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 Patient had a recent hospitalization in October for small bowel obstruction secondary to incarcerated umbilical hernia status post repair of the hernia with resolution of the bowel obstruction. Fo [facility] surgery, patient was discharge to [facility] for subacute rehab. Patient subsequently underwent laminectomy L1 through L4 at [facility] on November 30. Just prior to surgery, patient was found to have new DVT and an IVC filter was placed on November 30 just prior to her laminectomy. Patient stayed in the hospital for one week and then was discharged back to [facility]. Her family states that she has gained a total of 28 pounds since she left [facility] for her surgery. Patient has had no appetite and eating very little for the past 2 weeks. She has also been sleeping most of the day and night for the past 2 weeks. Patient complains of some shortness of breath. She has had difficulty with uncontrolled A. fib from Tuesday to Tuesday of this week as patient's blood pressure was low and it was difficult managing her medications. Lasix was also causing her blood pressure to lower. Yesterday patient started not voiding. There has also been concerns about mental status changes on and off over this period of time. Patient has been on oxygen since surgery November 30. Patient was placed on heparin subcu following laminectomy and was scheduled to start eliquis today. Patient was brought into [facility] emergency center by ambulance. She was found to be afebrile. EKG was a atrial fibrillation with T- wave inversion and ST depression. Heart rate running in 80s to 114. Blood pressure initially 93/78. WBC 16.5, hemoglobin 10.9, sodium 134, BUN 45 and creatinine 1.15, CO2 21, blood sugar 141. ProBNP 1430, albumin 2.9, influenza and 10 seeing negative. Urinalysis cloudy, esterase small, bacteria rare, blood small. Lactic acid 2.3. Chest x-ray shows no acute process. Patient was given 1 dose of IV Lasix and antibiotics in the emergency center. Patient admitted to the cardiac stepdown unit and cardiology consult in place. Patient's daughter Bree Feng is POA. 12/15 patient assessed today. She underwent a CTA chest yesterday suggestive r ight upper lobe pulmonary embolism with density within the posterior left lung base of 1.6 cm. No plan for biopsy of the lesion. Patient was seen by oncology who recommended starting patient on therapeutic Lovenox and holding elliquis. Unclear if pulmonary embolism is new or old as patient had IVC filter placed prior to the surgery. Venous Doppler of lower extremities ordered. DVT of the left lower extremity is known. Vitals today suggest a temp of 98.4 pulse 80 blood pressure 95/58 patient's currently 95% on 3 L. Patient will be switched to eliquis in the evening. Patient is much alert and slept better last night. Continue Remeron at the current dose. Angel Luis bandages to the lower extremities to be continued. 12/16 patient examined bedside is much more alert and answered questions appropriately. Patient refused PT this morning, patient's blood pressure today is 108/56 currently on 3 L of oxygen. Checked oxygen off nasal cannula patient saturating at 96% on room air suggest a leukocytosis of 12.5 hemoglobin 9.3 platelets 248 sodium 132 BUN 41 and creatinine 0.68 blood sugars ranging from 137 to210 . Currently on eliquis for the PE. Patient is doing well possible discharge tomorrow. If patient is sitting on the chair 40 catheter can be removed 12/17: Patient has been afebrile, heart rate 105, blood pressure 93/75, pulse ox 98% on room air. Blood sugars running between 146 and 212. Patient's respiratory status is stable. She is complaining that she has not had a bowel movement and a fleets enema will be ordered. She is on MiraLAX which will be continued and she is also on stool softener twice daily as needed. Patient has a Guajardo catheter in place that was initiated at the assisted. We will plan to maintain this until patient returns to [facility]. Patient is followed by Dr. Patricia and PE seen on CAT scan most likely is chronic and patient has been transitioned back to [facility]. Echocardiogram reveals EF of 55-60% with mild concentric left ventricle hypertrophy, mild mitral regurgitation, mild tricuspid regurgitation, no pulmonary hypertension.Anticipate discharge to [facility] tomorrow. 12/18: Patient has been afebrile, heart rate 95, blood pressure 107/56, pulse ox 95% on room air. Patient had 2 bowel movements yesterday afternoon and constipation resolved. Blood culture no growth after 96 hours. Patient denies any new complaints. She denies any chest pain or shortness of breath. No abdominal pain. Patient will be discharged back to [facility] complete her course of rehabilitation. Discharge diagnoses: 1. Lower extremity edema and anasarca with third spacing without acute heart failure. 2. Shortness of breath, secondary to chronic PE. 3. History of multiple DVTs and PE on termite control servicer anticoagulation. 4. Leukocytosis and lactic acidosis of unclear etiology, possibly related to renal failure. 5. Acute kidney injury with chronic kidney disease stage II. 6. Paroxysmal atrial fibrillation. 7. Valvular heart disease with mild tricuspid regurgitation, moderate aortic stenosis, mild mitral regurgitation. 8. Severe pulmonary hypertension ruled out on echocardiogram. 9. Hypertension, history. 10. Hyperlipidemia. 11. Diabetes mellitus type 2. 12. Spinal stenosis status post laminectomy November 30. 13. Recent hospitalization small bowel obstruction secondary to incarcerated umbilical hernia status post repair of the hernia, stable. 14. Recurrent depression. 15. Gastroesophageal reflux disease 16. Constipation. Discharge plan: Return to [facility] on the care of Dr. Liu. Impression and plan of care have been directed as dictated by the signing physician. India Conway nurse practitioner acting as scribe for signing physician. Patient Condition at Discharge: Good Plan - Discharge Summary New Discharge Prescriptions: New Metoprolol Tartrate [Lopressor] 50 mg PO BID@0800,2100 tab Polyethylene Glycol 3350 [Miralax] 17 gm PO DAILY powd.pack Midodrine [ProAmatine] 5 mg PO AC-BID tab Hydrocortisone Pr Cream [Proctosol-Hc 2.5%] 1 applic RECTAL BID PRN applic PRN Reason: Hemorrhoids Continue Simvastatin [Zocor] 10 mg PO HS@2100 metFORMIN HCL [Glucophage] 1,000 mg PO DAILY@0800 glipiZIDE [Glucotrol] 5 mg PO DAILY@0800 Potassium Chloride [Klor-Con 20] 20 meq PO DAILY@1700 Furosemide [Lasix] 40 mg PO BID@0800,1700 Omeprazole [PriLOSEC] 20 mg PO DAILY@0600 guaiFENesin [Mucinex] 600 mg PO Q12HR PRN tablet.er PRN Reason: Cough buPROPion HCL [Wellbutrin SR] 150 mg PO BID@0800,2100 Metoclopramide [Reglan] 5 mg PO QID PRN PRN Reason: Nausea Methocarbamol [Robaxin] 750 mg PO Q8H PRN PRN Reason: Spasms Magnesium Hydroxide [Milk of Magnesia] 2,400 mg PO DAILY PRN PRN Reason: Constipation Ipratropium-Albuterol Nebulize [Duoneb 0.5 mg-3 mg/3 ml Soln] 3 ml INHALATION RT-TID PRN PRN Reason: Shortness Of Breath Na Phos,M-B/Na Phos,Di-Ba [Fleet Adult] 133 ml RECTAL DAILY PRN PRN Reason: Constipation Bisacodyl [Dulcolax] 10 mg RECTAL DAILY PRN PRN Reason: Constipation Sennosides-Docusate Sodium [Senokot-S] 1 tab PO BID@0800,1700 Magnesium Oxide [Mag-Ox] 400 mg PO BID@0800,1700 Lactulose 20 gm PO BID@0800,1700 Ensure Clear 1 can PO BID@0800,1700 Apixaban [Eliquis] 5 mg PO BID@0800,1700 Cefpodoxime Proxetil [Vantin] 100 mg PO BID@0800,1700 Mirtazapine 7.5 mg PO HS@2100 Lidocaine 4% Patch 1 patch TOPICAL DAILY@0800 Diltiazem HCl [Cartia Xt] 120 mg PO DAILY@0800 Digoxin [Lanoxin] 125 mcg PO DAILY@0600 INSULIN ASPART (NovoLOG) [NovoLOG (formulary)] See Protocol SQ ACHS Acetaminophen Tab [Tylenol] 650 mg PO Q4H PRN PRN Reason: Fever And/ Or Pain traMADol HCL 50 mg PO Q4H PRN #18 tab PRN Reason: Moderate Pain Discontinued Metoprolol Tartrate [Lopressor] 100 mg PO BID@0800,2100 Heparin Sodium,Porcine [Heparin Sodium] 7,500 unit SQ Q8HR@0600,1400,2200 Lasix 10mg/Ml 60 mg IM ONCE PRN PRN Reason: Edema Discharge Medication List Simvastatin [Zocor] 10 mg PO HS@209908/25/17 [History] glipiZIDE [Glucotrol] 5 mg PO DAILY@0800 08/25/17 [History] metFORMIN HCL [Glucophage] 1,000 mg PO DAILY@0800 08/25/17 [History] Furosemide [Lasix] 40 mg PO BID@0800,1700 08/19/19 [History] Omeprazole [PriLOSEC] 20 mg PO DAILY@0608/19/19 [History] Potassium Chloride [Klor-Con 20] 20 meq PO DAILY@169908/19/19 [History] guaiFENesin [Mucinex] 600 mg PO Q12HR PRN tablet.er 09/25/19 [Rx] buPROPion HCL [Wellbutrin SR] 150 mg PO BID@0800,2100 10/22/19 [History] Acetaminophen Tab [Tylenol] 650 mg PO Q4H PRN 12/13/19 [History] Apixaban [Eliquis] 5 mg PO BID@0800,1700 12/13/19 [History] Bisacodyl [Dulcolax] 10 mg RECTAL DAILY PRN 12/13/19 [History] Cefpodoxime Proxetil [Vantin] 100 mg PO BID@0800,1700 12/13/19 [History] Digoxin [Lanoxin] 125 mcg PO DAILY@0600 12/13/19 [History] Diltiazem HCl [Cartia Xt] 120 mg PO DAILY@0800 12/13/19 [History] Ensure Clear 1 can PO BID@0800,1700 12/13/19 [History] INSULIN ASPART (NovoLOG) [NovoLOG (formulary)] See Protocol SQ ACHS 12/13/19 [History] Ipratropium-Albuterol Nebulize [Duoneb 0.5 mg-3 mg/3 ml Soln] 3 ml INHALATION RT-TID PRN 12/13/19 [History] Lactulose 20 gm PO BID@0800,1700 12/13/19 [History] Lidocaine 4% Patch 1 patch TOPICAL DAILY@0800 12/13/19 [History] Magnesium Hydroxide [Milk of Magnesia] 2,400 mg PO DAILY PRN 12/13/19 [History] Magnesium Oxide [Mag-Ox] 400 mg PO BID@0800,1700 12/13/19 [History] Methocarbamol [Robaxin] 750 mg PO Q8H PRN 12/13/19 [History] Metoclopramide [Reglan] 5 mg PO QID PRN 12/13/19 [History] Mirtazapine 7.5 mg PO HS@2100 12/13/19 [History] Na Phos,M-B/Na Phos,Di-Ba [Fleet Adult] 133 ml RECTAL DAILY PRN 12/13/19 [History] Sennosides-Docusate Sodium [Senokot-S] 1 tab PO BID@0800,1700 12/13/19 [History] Hydrocortisone Pr Cream [Proctosol-Hc 2.5%] 1 applic RECTAL BID PRN applic 12/18/19 [Rx] Metoprolol Tartrate [Lopressor] 50 mg PO BID@0800,2100 tab 12/18/19 [Rx] Midodrine [ProAmatine] 5 mg PO AC-BID tab 12/18/19 [Rx] Polyethylene Glycol 3350 [Miralax] 17 gm PO DAILY powd.pack 12/18/19 [Rx] traMADol HCL 50 mg PO Q4H PRN #18 tab 12/18/19 [Rx] Follow up Appointment(s)/Referral(s): Lefty Kingston MD [STAFF PHYSICIAN] - 1 Week Kinjal Liu MD [Primary Care Provider] - 1 Week (at [facility]) Activity/Diet/Wound Care/Special Instructions: [facility] Discharge Disposition: TRANSFER TO SNF/F
[2019-12-18 11:55] LABS: Glucose,Whole Blood 170 mg/dL (75-99)
[2019-12-18 13:21] VITALS: BMI 49.5
--- NOTE | 2019-12-24 14:06 | CDI ---
Documentation Clarification Form Date: 12/24/19 From: Meryl Walton Phone: If you have a question about this query, please contact Nely Giordano, Hydrographer at [phone] between 8am and 5pm. Admit Date: 12/13/19 Discharge Date: 12/18/19 Patient Name: Yandy Brandt Visit Number: [id number] ATTENTION: The Clinical Documentation Specialists (CDI) and [facility] Coding Staff appreciate your assistance in clarifying documentation. Please respond to the clarification below the line at the bottom and electronically sign. The CDI & [facility] Coding staff will review the response and follow-up if needed. Please note: Queries are made part of the Legal Health Record. If you have any questions, please contact the author of this message via ITS. Dear Dr. Sanju Herrera, The diagnosis lower extremity edema and anasacra with third spacing without acute heart failure was documented in the DS, but is not noted in subsequent documentation. History/Risk Factors: chronic PE, AKR, HTN w CKD 2 & chronic diastolic CHF, morbid obesity, paroxysmal atrial fib Clinical Indicators: edema Treatment: Lasix 20 mg IV X 2 Please clarify if the third spacing is fluid overload Yes No Other, please specify Clinically unable to determine MTDD
--- NOTE | 2020-01-01 09:41 | CDI ---
Documentation Clarification Form Date: 12/24/19 From: Meryl Walton Phone: If you have a question about this query, please contact Nely Giordano, Class B Driver at [phone] between 8am and 5pm. Admit Date: 12/13/19 Discharge Date: 12/18/19 Patient Name: Yandy Brandt Visit Number: [id number] ATTENTION: The Clinical Documentation Specialists (CDI) and [facility] Coding Staff appreciate your assistance in clarifying documentation. Please respond to the clarification below the line at the bottom and electronically sign. The CDI & [facility] Coding staff will review the response and follow-up if needed. Please note: Queries are made part of the Legal Health Record. If you have any questions, please contact the author of this message via ITS. Dear Dr. Sanju Herrera, The diagnosis lower extremity edema and anasacra with third spacing without acute heart failure was documented in the DS, but is not noted in subsequent documentation. History/Risk Factors: chronic PE, AKR, HTN w CKD 2 & chronic diastolic CHF, morbid obesity, paroxysmal atrial fib Clinical Indicators: edema Treatment: Lasix 20 mg IV X 2 Please clarify the CAUSE of the third spacing is fluid overload: Fluid overload Chronic CHF Chronic PE Other, please specify Clinically unable to determine no heart failure as documented MTDD
== END 2019-12-18 15:56 | DRG 948 ==
LOC: EC 11:30 → 3SCARD 15:57
PROVIDERS: ADMIT Internal Medicine; ATTEND Internal Medicine
DX: R60.1 Generalized edema (principal); I27.82 Chronic pulmonary embolism; Z68.42 Body mass index [BMI] 45.0-49.9, adult; N17.9 Acute kidney failure, unspecified; F33.9 Major depressive disorder, recurrent, unspecified; E87.2 Acidosis; I13.0 Hypertensive heart and chronic kidney disease with heart failure and stage 1 through stage 4 chronic kidney disease, or unspecified chronic kidney disease; D68.59 Other primary thrombophilia; I50.32 Chronic diastolic (congestive) heart failure; E72.12 Methylenetetrahydrofolate reductase deficiency; D68.2 Hereditary deficiency of other clotting factors; I08.2 Rheumatic disorders of both aortic and tricuspid valves; E66.01 Morbid (severe) obesity due to excess calories; I27.20 Pulmonary hypertension, unspecified; E11.22 Type 2 diabetes mellitus with diabetic chronic kidney disease; Z66 Do not resuscitate; N18.2 Chronic kidney disease, stage 2 (mild); I89.0 Lymphedema, not elsewhere classified; I73.89 Other specified peripheral vascular diseases; E78.5 Hyperlipidemia, unspecified; K21.9 Gastro-esophageal reflux disease without esophagitis; I48.0 Paroxysmal atrial fibrillation; I95.2 Hypotension due to drugs; T50.2X5A Adverse effect of carbonic-anhydrase inhibitors, benzothiadiazides and other diuretics, initial encounter; N28.89 Other specified disorders of kidney and ureter; M48.00 Spinal stenosis, site unspecified; M19.90 Unspecified osteoarthritis, unspecified site; Z53.20 Procedure and treatment not carried out because of patient's decision for unspecified reasons; Z79.01 Long term (current) use of anticoagulants; Z79.4 Long term (current) use of insulin; Z79.899 Other long term (current) drug therapy; Z95.828 Presence of other vascular implants and grafts; Z71.3 Dietary counseling and surveillance; Z91.81 History of falling; Z87.01 Personal history of pneumonia (recurrent); Z90.49 Acquired absence of other specified parts of digestive tract; Z96.612 Presence of left artificial shoulder joint; Z96.653 Presence of artificial knee joint, bilateral; Z98.1 Arthrodesis status; Z98.890 Other specified postprocedural states; Z86.718 Personal history of other venous thrombosis and embolism; Z98.42 Cataract extraction status, left eye; Z98.41 Cataract extraction status, right eye; Z88.1 Allergy status to other antibiotic agents; Z88.0 Allergy status to penicillin; Z83.2 Family history of diseases of the blood and blood-forming organs and certain disorders involving the immune mechanism; Z80.8 Family history of malignant neoplasm of other organs or systems; Z81.8 Family history of other mental and behavioral disorders; Z84.81 Family history of carrier of genetic disease
CPT/HCPCS: 36415; 71045; 71275; 80053; 81001; 82803; 83036; 83605; 83735; 83880; 84145; 84484; 85025; 85610; 85730; 87040; 87502; 93005; 93306; 94640; 94760; 96361; 96374; 96375; 99285

== ENCOUNTER 2021-01-14 06:59 | Day surgery (SDC) | payer MEDICARE ==
[2021-01-09 08:50] VITALS: BMI 46.0
[~2021-01-14 06:59] MED LIST: LACTATED RINGERS 1,000 ML IV SCH
[2021-01-14 07:54] VITALS: RESP 16; TEMP 97.8
[2021-01-14 07:54] LABS: Glucose,Whole Blood 132 mg/dL (75-99)
[2021-01-14] MEDS ORDERED: PROPOFOL 10 MG/ML 20 ML VIAL IV ONE (08:15)
[2021-01-14] MEDS ORDERED: LIDOCAINE 1% INJ 10MG/ML (20 ML MDV) ONE (08:15)
--- NOTE | 2021-01-14 08:46 | P.PCN ---
Date of Procedure: 01/14/21 Procedure(s) Performed: Brief history: Patient is a pleasant 85-year-old white female scheduled for an elective upper endoscopy as well as colonoscopy as a part of evaluation of iron deficiency anemia. She does complain of occasional heartburn but denies any rectal bleeding or melena.. Procedure performed: Esophagogastroduodenoscopy with biopsy Colonoscopy with snare polypectomy Preoperative diagnosis: Iron deficiency anemia. Anesthesia: MAC Procedure: After informed consent was obtained from the patient was brought into the endoscopy unit and IV sedation was administered by anesthesia under continuous monitoring. Initially upper endoscopy was done. The Olympus GF 160 video endoscope was inserted inserted into the mouth and esophagus intubated without any difficulty and was gradually advanced into the stomach and duodenum and carefully examined. The bulb and second part of the duodenum appeared normal. The scope was then withdrawn into the stomach adequately insufflated with air and upon careful examination the antrum and body, had diffuse gastritis with some old blood noted. Biopsies were done from the antrum. On retroflexion the cardia and the fundus appeared normal The scope was then withdrawn into the esophagus. The GE junction was located at 40 cm to the incisors. It appeared regular with no erythema erosions or ulcerations. Rest of the esophagus somewhat tortuous and dilated with some white next noted and biopsies were done from this area to rule out Rebecca esophagitis. The proximal esophagus appeared normal and the patient tolerated the procedure well. At this time the patient continued to remain sedation. Initial digital rectal examination was normal. Olympus CF 160 video colonoscope was then inserted into the rectum and gradually advanced to the cecum without any difficulty. Careful examination was performed as the scope was gradually being withdrawn. The prep was excellent. The cecum appeared normal. Ascending colon there was a 5 mm polyp that was removed by snare polypectomy. Rest of the, ascending colon, transverse colon, descending colon, sigmoid colon and rectum appeared normal. Proximal rectum there was another 5 mm polyp that was removed by snare polypectomy. Diffuse diverticulosis noted. Retroflexion was performed in the rectum and no lesions were noted. Patient tolerated the procedure well. Impression: 1. Upper endoscopy revealed diffuse gastritis and tortuous, dilated esophagus suspicious for esophageal dysmotility 2. Colonoscopy revealed a 5 mm ascending colon polyp and 5 mm rectal polyp status post-polypectomy and diffuse scattered diverticulosis. Recommendations: Findings of this examination were discussed with the patient as well as her family. She was advised to follow with the biopsy results. She was advised to resume liquids today.
[2021-01-14 09:32] VITALS: BP 110/61; PULSE 100
== END 2021-01-14 09:50 | disposition home or self-care (01) ==
LOC: ORWHC2ENDO 06:59
PROVIDERS: ATTEND Internal Medicine Gastroenterology
DX: K63.5 Polyp of colon (principal); K62.1 Rectal polyp; K29.80 Duodenitis without bleeding; K29.50 Unspecified chronic gastritis without bleeding; K57.30 Diverticulosis of large intestine without perforation or abscess without bleeding; Q39.8 Other congenital malformations of esophagus; K22.8 Other specified diseases of esophagus; D50.9 Iron deficiency anemia, unspecified; K08.89 Other specified disorders of teeth and supporting structures; D12.8 Benign neoplasm of rectum; I50.9 Heart failure, unspecified; I48.91 Unspecified atrial fibrillation; K21.9 Gastro-esophageal reflux disease without esophagitis; Z88.0 Allergy status to penicillin; Z88.1 Allergy status to other antibiotic agents; Z79.899 Other long term (current) drug therapy; Z79.4 Long term (current) use of insulin; Z79.01 Long term (current) use of anticoagulants; Z86.711 Personal history of pulmonary embolism
CPT/HCPCS: 43239; 45385; 88305; 88312; 88342

== ENCOUNTER → 2021-01-19 | Outpatient (CLI) | payer MEDICARE | END | disposition home or self-care (01) | LOC: EDSTATUS 14:30 → LABWHC1 15:26 | PROVIDERS: ATTEND Internal Medicine | DX: Z20.828 Contact with and (suspected) exposure to other viral communicable diseases (principal) | CPT/HCPCS: U0003; C9803; U0005 ==

== ENCOUNTER → 2021-05-11 | Outpatient (CLI) | payer MEDICARE, OTHER ==
--- NOTE | 2021-05-12 11:57 | CT ---
CT left lower extremity HISTORY: Localized swelling, mass, lump left thigh, R 22.42 Helical acquisition obtained through the proximal left lower extremity following dynamic administrati on of 80 cc Isovue-300 IV. Automated exposure control for dose reduction. DLP 871.40 mGy centimeters There are no comparisons There is no marker overlying the patient's clinical abnormality. At the medial aspect of the left thigh there is some near water attenuation somewhat serpiginous in l obular soft tissue present just proximal to the level of the metaphysis within the subcutaneous fat a reas measuring 3.8 x 3.1 x 3.2 cm an additional hourglass shaped focus slightly more proximally measu ring approximately 3.6 x 2.2 x 2 cm, there are similar-appearing foci the medial aspect of the right leg at this level which are even larger and partially visualized measuring approximately at least 7 x 7.7 cm. Within the subcutaneous fat there is fluid attenuation, varicosities. At the anterior aspect of the more proximal left thigh varix is noted to the level of the skin. Calcified probable phleboli th or injection granuloma present in the anterior subcutaneous soft tissues of the distal thigh measu ring 16 mm in diameter. There is extensive artifact due to patient's knee prosthesis. There is some s kin thickening present. Atherosclerotic calcification present within the distribution of the superfic ial femoral artery and popliteal artery. Along the shaft of the left femur at the mid diaphyseal leve l there is a calcific density measuring approximately 4.2 cm in cephalad to caudal dimension by 3 cm in AP dimension by 1 cm transverse dimension which shows a somewhat lamellated appearance along the l ateral femoral cortex, no soft tissue mass or evident periosteal reaction, no cortical destruction, n onaggressive appearance. IMPRESSION: Lobular fluid collections in the medial thigh subcutaneous fat soft tissues present bilat erally greater on the right than on the left, indeterminate fluid density nonaggressive appearance ar e indeterminate and could be related to ecchymosis, varices. Nonaggressive appearing calcific focus a long femur may be related to heterotopic new bone formation, remote trauma. Correlate for edema, cell ulitis. Additional findings above.
== END | disposition home or self-care (01) ==
LOC: RADCTMAIN 14:25
PROVIDERS: ATTEND Internal Medicine
DX: R22.42 Localized swelling, mass and lump, left lower limb (principal)
CPT/HCPCS: 82565; 84520; 73701; 36415; Q9967

== ENCOUNTER → 2022-01-12 | Outpatient (CLI) | payer MEDICARE, OTHER ==
--- NOTE | 2022-01-12 16:12 | US ---
EXAMINATION TYPE: US venous doppler duplex LE LT DATE OF EXAM: 01/12/2022 4:00 PM COMPARISON: NONE CLINICAL HISTORY: 86-year-old female R60.0 leg edema. SIDE PERFORMED: Left TECHNIQUE: The lower extremity deep venous system is examined utilizing real time linear array sonog silver with graded compression, doppler sonography and color-flow sonography. 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 Exam very limited, unable to visualize vessels in groin. Left Leg: Appears negative for DVT in this very limited study. IMPRESSION: Severely limited exam of the left lower extremity. Only the femoral and popliteal veins could be adeq uately visualized. No DVT is seen at these levels. The CFV, deep femoral vein, and upper calf veins a re not adequately visualized.
== END | disposition home or self-care (01) ==
LOC: RADUSWWP 15:27
PROVIDERS: ATTEND Internal Medicine
DX: R60.0 Localized edema (principal)

== ENCOUNTER 2022-01-21 13:35 | Inpatient (IN) | payer MEDICARE, OTHER ==
--- NOTE | 2022-01-21 14:42 | ED ---
Arrhythmia/Palpitations HPI - General Chief Complaint: Arrhythmia/Palpitations Stated Complaint: Hypertension Time Seen by Provider: 01/21/22 13:57 Source: patient, family, RN notes reviewed Mode of arrival: wheelchair Limitations: no limitations - History of Present Illness Initial Comments: This is an 86 year old female who presents to the emergency department from her PCP Dr. Liu for elevated HR, low blood pressure, cellulitis, and swelling in the bilateral lower extremities. Patient has chronic a-fib and presents with an irregular rhythm as well. Her daughter is her legal guardian and is providing most of her medical history. States that she has been on Keflex for 9 days for the cellulitis that started on the right foot. The right foot is improving and the symptoms are now most prominent on her left upper thigh. Patient also notes that her legs are very painful. Per her legal guardian, she has chronic swelling in the lower extremities that does not appear much worse than normal. She is also noted to have a cough for the last 3 weeks. She was most recently tested for COVID 1 week ago which was negative. Patient currently denies any chest pain, SOB, or palpitations. She is noted to have oral candidiasis, which is suspected to be a result of the Keflex. MD Complaint: atrial fibrillation Arrhythmia History: atrial fibrillation, on anti-coagulants Associated Symptoms: cough - Related Data Home Medications Medication Instructions Recorded Confirmed Simvastatin [Zocor] 10 mg PO HS 08/25/17 01/21/22 glipiZIDE [Glucotrol] 5 mg PO BID 08/25/17 01/21/22 metFORMIN HCL [Glucophage] 1,000 mg PO BID 08/25/17 01/21/22 Omeprazole [PriLOSEC] 20 mg PO DAILY 08/19/19 01/21/22 Potassium Chloride [Klor-Con 20] 20 meq PO BID 08/19/19 01/21/22 Apixaban [Eliquis] 5 mg PO BID 12/13/19 01/21/22 Dulaglutide [Trulicity] 0.75 mg SQ TH 07/01/21 01/21/22 Furosemide [Lasix] 80 mg PO BID 07/01/21 01/21/22 Metoprolol Tartrate [Lopressor] 25 mg PO BID 07/01/21 01/21/22 Ammonium Lactate Cream [Lac-Hydrin 1 applic TOPICAL BID 01/21/22 01/21/22 12% Cream] Cephalexin [Keflex] 500 mg PO TID 01/21/22 01/21/22 Empagliflozin [Jardiance] 10 mg PO DAILY 01/21/22 01/21/22 INSULIN ASPART (NovoLOG) [NovoLOG See Protocol SQ ACHS 01/21/22 01/21/22 (formulary)] Nystatin/Triamcin 1 applic TOPICAL BID 01/21/22 01/21/22 [Nystatin-Triamcinolone] SILVER sulfADIAZINE Cream 1 applic TOPICAL DAILY 01/21/22 01/21/22 [Silvadene 1% Cream] Venlafaxine HCl [Effexor XR] 75 mg PO DAILY 01/21/22 01/21/22 Allergies Allergy/AdvReac Type Severity Reaction Status Date / Time Penicillins Allergy Rash/Hives Verified 01/21/22 16:20 azithromycin AdvReac Dyspnea & Verified 01/21/22 16:20 nausea ciprofloxacin [From Cipro] AdvReac Dyspnea & Verified 01/21/22 16:20 nausea Review of Systems ROS Statement: Those systems with pertinent positive or pertinent negative responses have been documented in the HPI. ROS Other: All systems not noted in ROS Statement are negative. Constitutional: Denies: fever, chills ENT: Denies: ear pain, throat pain Respiratory: Reports: cough. Denies: dyspnea Cardiovascular: Denies: chest pain, palpitations Gastrointestinal: Denies: abdominal pain, nausea, vomiting, diarrhea Genitourinary: Denies: urgency, dysuria, frequency Musculoskeletal: Reports: other (bilateral LE pain). Denies: back pain, joint swelling, arthralgia Skin: Reports: rash (bilateral LE). Denies: lesions Neurological: Denies: headache Past Medical History Past Medical History: Blood Disorder, Diabetes Mellitus, Deep Vein Thrombosis (DVT), GERD/Reflux, Hyperlipidemia, Hypertension, Osteoarthritis (OA), Pneumonia, Pulmonary Embolus (PE), Renal Disease Additional Past Medical History / Comment(s): Hx of PE & DVT, mass on right kidney, cellulitis BLE, falls at home, spinal stenosis status post laminectomy. lt leg gives out wears brace History of Any Multi-Drug Resistant Organisms: None Reported Past Surgical History: Back Surgery, Breast Surgery, Cholecystectomy, Joint Replacement, Orthopedic Surgery Additional Past Surgical History / Comment(s): thelma knee replac; L shoulder replac.; carpel tunnel vaginal duct cyst; benign breast surg; cataracts; retinal repair left eye. BAck surgery, hernia repair Past Anesthesia/Blood Transfusion Reactions: No Reported Reaction Past Psychological History: Depression Smoking Status: Never smoker Past Alcohol Use History: None Reported Past Drug Use History: None Reported - Past Family History Father Family Medical History: Deep Vein Thrombosis (DVT) Son(s) Family Medical History: Deep Vein Thrombosis (DVT) Mother Family Medical History: Cancer Additional Family Medical History / Comment(s): Mother had cancer in her back. Daughter(s) Family Medical History: Blood Disorder Additional Family Medical History / Comment(s): Daughter has MTHFR factor and pt's grandson has lyme factor V and grand daughter has MTHFR. General Exam Limitations: no limitations General appearance: alert, in no apparent distress Head exam: Present: atraumatic, normocephalic, normal inspection ENT exam: Present: mucous membranes moist, other (oral candidiasis) Respiratory exam: Present: normal lung sounds bilaterally. Absent: respiratory distress, wheezes, rales, rhonchi, stridor Cardiovascular Exam: Present: tachycardia, irregular rhythm. Absent: regular rate, normal rhythm GI/Abdominal exam: Present: soft, normal bowel sounds. Absent: distended, tenderness, guarding, rebound, rigid Extremities exam: Present: other (bilateral swelling in the lower extremities and feet, no pitting edema. ) Neurological exam: Present: alert, oriented X3, CN II-XII intact Psychiatric exam: Present: normal affect, normal mood Skin exam: Present: rash (Erythema and heat of the left medial thigh with induration and an open wound with active drainage. ), other (Erythema with scaling of the bilateral lower extremities and dorsal aspect of the right foot. No drainage.) Course Vital Signs 01/21/22 01/21/22 01/21/22 13:38 13:56 13:58 Temperature 97.1 F L Pulse Rate 113 H Pulse Rate [ 115 H Pulse Oximetery ] Respiratory 18 18 Rate Blood Pressure 117/87 O2 Sat by Pulse 94 L Oximetry 01/21/22 01/21/22 01/21/22 14:30 14:57 14:58 Temperature Pulse Rate 103 H Pulse Rate [ Pulse Oximetery ] Respiratory 19 Rate Blood Pressure 129/98 O2 Sat by Pulse 87 L 90 L Oximetry 01/21/22 17:58 Temperature Pulse Rate 97 Pulse Rate [ Pulse Oximetery ] Respiratory 18 Rate Blood Pressure 100/64 O2 Sat by Pulse 100 Oximetry EKG Findings - EKG Comments: EKG Findings:: Atrial fibrillation with RVR. Minimal ST depression. Ventricular rate of 116 BPM, QRS of 94 ms, and QTC of 396 ms. Medical Decision Making - Medical Decision Making This is an 86 year old female who presents to the emergency department from her PCP Dr. Liu's office for failed outpatient management of cellultis, bilateral LE swelling, low oxygen saturation, elevated HR, and low BP. Initial lab work obtained, what has returned at this point is relatively unremarkable. BNP, lactic acid, and wound cultures are still pending. Oxygen saturation has fluctuated from 89-92%, she was subsequently placed on 3 L oxygen via nasal cannula and oxygen has stabilized at around 96%. Vancomycin and Meropenem started in the emergency department per the recommendation of Dr. Liu. Chest XR obtained for low oxygen saturation and revealed basilar atelectasis and a prominent pulmonary artery. Given the tachycardia and low oxygen saturation, a CTA of the chest was obtained and did not identify a pulmonary embolism. Patient is accepted for admission to Dr. Liu. - Lab Data Result diagrams: 01/21/22 14:36 01/21/22 14:36 Lab Results 01/21/22 01/21/22 01/21/22 Range/Units 14:36 14:36 14:36 WBC 10.6 (3.8-10.6) k/uL RBC 4.83 (3.80-5.40) m/uL Hgb 11.8 (11.4-16.0) gm/dL Hct 39.3 (34.0-46.0) % MCV 81.3 (80.0-100.0) fL MCH 24.4 L (25.0-35.0) pg MCHC 30.1 L (31.0-37.0) g/dL RDW 18.4 H (11.5-15.5) % Plt Count 314 (150-450) k/uL MPV 9.1 Neutrophils % 83 % Lymphocytes % 10 % Monocytes % 5 % Eosinophils % 1 % Basophils % 1 % Neutrophils # 8.7 H (1.3-7.7) k/uL Lymphocytes # 1.0 (1.0-4.8) k/uL Monocytes # 0.6 (0-1.0) k/uL Eosinophils # 0.1 (0-0.7) k/uL Basophils # 0.1 (0-0.2) k/uL Hypochromasia Marked Anisocytosis Slight Microcytosis Slight PT 11.4 (9.0-12.0) sec INR 1.1 (<1.2) APTT 27.9 (22.0-30.0) sec Sodium 137 (137-145) mmol/L Potassium 4.8 (3.5-5.1) mmol/L Chloride 101 (98-107) mmol/L Carbon Dioxide 25 (22-30) mmol/L Anion Gap 11 mmol/L BUN 24 H (7-17) mg/dL Creatinine 0.93 (0.52-1.04) mg/dL Est GFR (CKD-EPI)AfAm 66 (>60 ml/min/1.73 sqM) Est GFR (CKD-EPI)NonAf 57 (>60 ml/min/1.73 sqM) Glucose 140 H (74-99) mg/dL Calcium 8.7 (8.4-10.2) mg/dL Magnesium 2.0 (1.6-2.3) mg/dL Total Bilirubin 0.7 (0.2-1.3) mg/dL AST 20 (14-36) U/L ALT 15 (4-34) U/L Alkaline Phosphatase 103 (38-126) U/L Troponin I (0.000-0.034) ng/mL NT-Pro-B Natriuret Pep pg/mL Total Protein 7.5 (6.3-8.2) g/dL Albumin 3.4 L (3.5-5.0) g/dL Influenza Type A (PCR) (Not Detectd) Influenza Type B (PCR) (Not Detectd) RSV (PCR) (Not Detectd) SARS-CoV-2 (PCR) (Not Detectd) 01/21/22 01/21/22 01/21/22 Range/Units 14:36 14:36 14:40 WBC (3.8-10.6) k/uL RBC (3.80-5.40) m/uL Hgb (11.4-16.0) gm/dL Hct (34.0-46.0) % MCV (80.0-100.0) fL MCH (25.0-35.0) pg MCHC (31.0-37.0) g/dL RDW (11.5-15.5) % Plt Count (150-450) k/uL MPV Neutrophils % % Lymphocytes % % Monocytes % % Eosinophils % % Basophils % % Neutrophils # (1.3-7.7) k/uL Lymphocytes # (1.0-4.8) k/uL Monocytes # (0-1.0) k/uL Eosinophils # (0-0.7) k/uL Basophils # (0-0.2) k/uL Hypochromasia Anisocytosis Microcytosis PT (9.0-12.0) sec INR (<1.2) APTT (22.0-30.0) sec Sodium (137-145) mmol/L Potassium (3.5-5.1) mmol/L Chloride (98-107) mmol/L Carbon Dioxide (22-30) mmol/L Anion Gap mmol/L BUN (7-17) mg/dL Creatinine (0.52-1.04) mg/dL Est GFR (CKD-EPI)AfAm (>60 ml/min/1.73 sqM) Est GFR (CKD-EPI)NonAf (>60 ml/min/1.73 sqM) Glucose (74-99) mg/dL Calcium (8.4-10.2) mg/dL Magnesium (1.6-2.3) mg/dL Total Bilirubin (0.2-1.3) mg/dL AST (14-36) U/L ALT (4-34) U/L Alkaline Phosphatase (38-126) U/L Troponin I <0.012 (0.000-0.034) ng/mL NT-Pro-B Natriuret Pep 1510 pg/mL Total Protein (6.3-8.2) g/dL Albumin (3.5-5.0) g/dL Influenza Type A (PCR) Not Detected (Not Detectd) Influenza Type B (PCR) Not Detected (Not Detectd) RSV (PCR) Not Detected (Not Detectd) SARS-CoV-2 (PCR) Not Detected (Not Detectd) - Radiology Data Radiology results: report reviewed, image reviewed Disposition Clinical Impression: Cellulitis of left leg, Atrial fibrillation, Hypoxemia Disposition: ADMITTED IP TO THIS HOSP
[2022-01-21 14:53] LABS: Anisocytosis Slight; Basophils # (A) 0.1 k/uL (0-0.2); Basophils % (A) 1 %; Eosinophils # (A) 0.1 k/uL (0-0.7); Eosinophils % (A) 1 %; HCT 39.3 % (34.0-46.0); HGB 11.8 gm/dL (11.4-16.0); Hypochromasia Marked; Lymphocytes % (A) 10 %; MCH 24.4 pg (25.0-35.0); MCHC 30.1 g/dL (31.0-37.0); MCV 81.3 fL (80.0-100.0); Mean Platelet Volume 9.1; Microcytosis Slight; Monocytes # (A) 0.6 k/uL (0-1.0); Monocytes % (A) 5 %; Neutrophils # (A) 8.7 k/uL (1.3-7.7); Neutrophils % (A) 83 %; Platelet Count 314 k/uL (150-450); RBC 4.83 m/uL (3.80-5.40); RDW 18.4 % (11.5-15.5); WBC 10.6 k/uL (3.8-10.6)
[2022-01-21 15:04] LABS: Albumin 3.4 g/dL (3.5-5.0); Calcium 8.7 mg/dL (8.4-10.2); Potassium 4.8 mmol/L (3.5-5.1); Total Bilirubin 0.7 mg/dL (0.2-1.3); Total Protein 7.5 g/dL (6.3-8.2)
[2022-01-21 15:10] LABS: INR 1.1 (<1.2); Partial Thromboplastin Time 27.9 sec (22.0-30.0); Prothrombin Time 11.4 sec (9.0-12.0)
--- NOTE | 2022-01-21 15:11 | XR ---
EXAMINATION TYPE: XR chest 2V DATE OF EXAM: 01/21/2022 COMPARISON: Chest x-ray 07/01/2021 HISTORY: Tachycardia, dysrhythmia TECHNIQUE: Frontal and lateral views of the chest are obtained. FINDINGS: Postop change noted to the left shoulder. Cardiac mediastinal silhouette is stable. No nathaniel dent pneumothorax or pleural effusion. Lung volumes are low. Aorta is dense. There are overlying lead s, artifacts0. Patient is rotated. Metallic device is superimposed over the lateral exam. Prominence of pulmonary artery could be due to pulmonary artery hypertension. Suspect some subsegmental basilar atelectatic changes are present. IMPRESSION: Basilar atelectasis. Additional findings above.
[2022-01-21 15:26] LABS: Influenza A Not Detected (Not Detectd); Influenza B Not Detected (Not Detectd)
--- NOTE | 2022-01-21 16:21 | CT ---
EXAMINATION TYPE: CT chest angio for PE DATE OF EXAM: 01/21/2022 COMPARISON: CT 12/14/2019 HISTORY: History of PE, new onset shortness of breath and tachycardia. CT DLP: 691.1 mGycm Automated exposure control for dose reduction was used. CONTRAST: CT Chest for pulmonary embolism performed with with IV Contrast, patient injected with 80 mL of Isovu e 370. Three-dimensional reconstructions were performed on an alternate workstation. FINDINGS: There is artifact presumably due to patient body habitus. Some reflux of contrast material is present within the hepatic veins which could be due to right heart failure. Esophagus is distended and shows likely retained secretions or food. LUNGS: The lungs are grossly clear, there is no concerning parenchymal mass or nodule identified. Br onchiectasis is noted in the right upper lobe with some focal scarring extending peripherally, correl ate to exclude pneumonia, right lower lobe bronchiectasis changes are also present posterior lung bas es There is no pleural effusion or pneumothorax seen. The tracheobronchial tree is patent. MEDIASTINUM: There is satisfactory enhancement of the pulmonary artery and its branches, there is no CT evidence for pulmonary embolism. There is some persistent right hilar soft tissue, similar appear ance to prior exam but perhaps increased, axial image 73, coronal image #92. No pericardial effusio n is seen. The heart is enlarged and there are coronary artery calcifications. Prominence of the pulm onary artery could be due to underlying pulmonary artery hypertension. AORTA: Metallic densities present at the root of the aorta, proximal ascending aorta measures approx imately 4 cm, the aorta is not enhanced normally due to timing of the sequence. Possible descending a kusum measures 3 cm OTHER: Low-density right adrenal lesion likely represents adenoma, there is a cystic focus at the up per pole of the left kidney again noted. Postop change noted to the left shoulder, there is arthropat hy in the right shoulder. Multilevel spondylosis noted in the thoracic spine IMPRESSION: Cardiomegaly and possible right heart failure, consider pulmonary artery hypertension. Possible under lying achalasia. No evident pulmonary embolism. There is some right hilar soft tissue which is mildly prominent but is indeterminate. Borderline aortic measurements. Bronchiectasis. Additional findings above.
[2022-01-21] MEDS ORDERED: VANCOMYCIN 1,000 MG in SODIUM CHLORIDE 0.9% 250 ML IVPB STA (18:02)
[2022-01-21] MEDS ORDERED: VANCOMYCIN IV PER PHARMACY 1 EACH MISC MISCELLANE PRN (18:12)
[2022-01-21] MEDS ORDERED: VANCOMYCIN 2,500 MG in SODIUM CHLORIDE 0.9% 500 ML 500 ML IVPB ONE (18:45)
[2022-01-21] MEDS ORDERED: NALOXONE 0.4 MG/ML 1 ML VIAL IV PRN (18:51)
[2022-01-21] MEDS ORDERED: MEROPENEM 1 GM in SODIUM CHLORIDE 0.9% 100 ML IVPB ONE (19:00)
[2022-01-21] MEDS ORDERED: ONDANSETRON 4 MG/2 ML VIAL IVP PRN (19:01)
[2022-01-21] MEDS ORDERED: HYDROmorphone 1 MG/ML 1 ML SYRINGE IVP PRN ×2 (19:01)
[2022-01-21] MEDS ORDERED: ACETAMINOPHEN TAB 325 MG TAB PO PRN (19:01)
[2022-01-21] MEDS ORDERED: MELATONIN 3 MG TABLET PO PRN (21:00)
[2022-01-21] MEDS: APIXABAN 5 MG TAB PO SCH (22:47)
[2022-01-21] MEDS: METOPROLOL TARTRATE 25 MG TAB PO SCH (22:47)
[2022-01-21] MEDS: ATORVASTATIN 10 MG TAB PO SCH (22:47)
[2022-01-21] MEDS: SODIUM CHLORIDE 0.9% 250 ML IV SCH (22:59)
[2022-01-21 23:35] LABS: Appearance,Urine Clear (Clear); Bilirubin,Urine Negative (Negative); Blood,Urine Negative (Negative); Color,Urine Yellow; Glucose,Urine (UA) 4+ (Negative); Ketones,Urine Negative (Negative); Leukocyte Esterase,Urine Negative (Negative); Nitrite,Urine Negative (Negative); Protein,Urine Negative (Negative); Specific Gravity,Urine 1.045 (1.001-1.035)
[2022-01-22] MEDS: SODIUM CHLORIDE 0.9% 250 ML IV SCH ×2 (01:24→01:25)
[2022-01-22] MEDS ORDERED: MEROPENEM 1 GM in SODIUM CHLORIDE 0.9% 100 ML IVPB SCH ×2 (04:00→07:00)
[2022-01-22 06:59] LABS: Glucose,Whole Blood 135 mg/dL (75-99)
[2022-01-22] MEDS: AMMONIUM LACTATE 12% CREAM 140 GM TUBE TOPICAL SCH ×2 (08:08→21:13)
[2022-01-22] MEDS: METOPROLOL TARTRATE 25 MG TAB PO SCH ×2 (08:09→21:15)
[2022-01-22] MEDS: APIXABAN 5 MG TAB PO SCH ×2 (08:09→21:13)
[2022-01-22] MEDS: metFORMIN 500 MG TAB PO SCH ×2 (08:09→21:14)
[2022-01-22] MEDS: POTASSIUM CHLORIDE ER 20 MEQ TAB.ER PO SCH ×2 (08:09→21:15)
[2022-01-22] MEDS: VENLAFAXINE HCL ER 75 MG CAP PO SCH (08:09)
[2022-01-22] MEDS: PANTOPRAZOLE 40 MG TABLET PO SCH (08:09)
[2022-01-22] MEDS: glipiZIDE 5 MG TAB PO SCH ×3 (08:09→21:19)
[2022-01-22] MEDS: FUROSEMIDE 80 MG TAB PO SCH ×2 (08:09→21:14)
[2022-01-22] MEDS: INSULIN ASPART (NovoLOG) 100 UNIT/ML VIAL SQ SCH ×4 (08:10→21:14)
[2022-01-22] MEDS: NYSTATIN 100,000UNIT/GM CREAM 30 GM TUBE TOPICAL SCH ×2 (08:10→21:15)
[2022-01-22] MEDS: TRIAMCINOLONE 0.1% CREAM 80 GM TUBE TOPICAL SCH ×2 (08:10→21:15)
[2022-01-22] MEDS ORDERED: NYSTAT-TRIAMCIN 100,000-0.1 UNIT/GM-% CREAM 30 GM TUBE TOPICAL SCH (09:00)
[2022-01-22] MEDS ORDERED: CEPHALEXIN 500 MG CAP PO SCH (09:00)
[2022-01-22 09:27] LABS: Anisocytosis Slight; Basophils % (A) 0 %; Eosinophils # (A) 0.1 k/uL (0-0.7); Eosinophils % (A) 1 %; HGB 10.6 gm/dL (11.4-16.0); Hypochromasia Marked; Lymphocytes # (A) 0.9 k/uL (1.0-4.8); Lymphocytes % (A) 11 %; MCH 24.2 pg (25.0-35.0); MCHC 29.4 g/dL (31.0-37.0); MCV 82.3 fL (80.0-100.0); Microcytosis Slight; Monocytes # (A) 0.5 k/uL (0-1.0); Monocytes % (A) 6 %; Neutrophils # (A) 6.5 k/uL (1.3-7.7); Neutrophils % (A) 80 %; Platelet Count 257 k/uL (150-450); RBC 4.37 m/uL (3.80-5.40); RDW 18.3 % (11.5-15.5); WBC 8.2 k/uL (3.8-10.6)
[2022-01-22 09:39] LABS: AST 18 U/L (14-36); African American GFR (CKD) 74 (>60 ml/min/1.73 sqM); Albumin 2.7 g/dL (3.5-5.0); Albumin/Globulin Ratio 0.8; Blood Urea Nitrogen 21 mg/dL (7-17); Calcium 8.2 mg/dL (8.4-10.2); Carbon Dioxide 29 mmol/L (22-30); Chloride 105 mmol/L (98-107); Globulin 3.6 g/dL; Glucose 160 mg/dL (74-99); Non-African American GFR(CKD) 64 (>60 ml/min/1.73 sqM); Total Bilirubin 0.6 mg/dL (0.2-1.3); Total Protein 6.3 g/dL (6.3-8.2)
[2022-01-22 09:40] LABS: ALT 11 U/L (4-34); Alkaline Phosphatase 89 U/L (38-126); Anion Gap 2 mmol/L; Potassium 4.7 mmol/L (3.5-5.1); Sodium 136 mmol/L (137-145)
[2022-01-22] MEDS: NON FORMULARY DRUG (Empagliflozin [Jardiance] 10 MG Tablet) PO SCH (09:45)
--- NOTE | 2022-01-22 10:45 | P.CRDCN ---
History of Present Illness History of present illness: HISTORY OF PRESENTING ILLNESS This is a pleasant 86-year-old female past medical history significant for persistent atrial fibrillation on Eliquis, dyslipidemia, hypertension, type 2 diabetes, mild nonobstructive coronary artery disease, moderate aortic stenosis. She follows with Dr. Delacruz in the office. We have been asked to see in consultation for atrial fibrillation. Patient presents to the emergency department from her PCP office due to concerns for hypotension, bilateral lower extremity cellulitis and elevated heart rate. Patient states that she's been on Keflex for 9 days for cellulitis that started on her right foot, however her bilateral leg swelling, redness and pain have increased. Concern for sepsis. It was recommended that patient come to the emergency department. Patient denies any chest pain, palpitations, lightheadedness, dizziness, syncope or near syncope. She denies any symptoms of orthopnea PND. She denies any bleeding in her urine or her stool. DIAGNOSTICS EKG reveals atrial fibrillation, heart rate 116 Telemetry tracings indicate atrial fibrillation, heart rates 80slow 100s Most recent echocardiogram in the office 08/31/2021 revealed an EF 5560%, pulmonary artery hypertension with an RVSP of 42 mmHg, mild tricuspid regurgitation, mild mitral regurgitation, moderate aortic stenosis with a peak gradient of 36 mmHg and mean gradient of 23 mmHg, mild aortic regurgitation. Chest CT revealed bronchiectasis phthisis in the right upper and right lower lobes, no pulmonary embolism, possible pulmonary artery hypertension Laboratory reviewed, WBC 8.2, hemoglobin 10.6, platelets 257, sodium 136, potassium 4.7, BUN 21, serum creatinine 0.8, lactate was 2.7, repeat 1.0, proBNP 1510, troponin negative, viral PCr negative REVIEW OF SYSTEMS At the time of my exam: CONSTITUTIONAL: Denies fever or chills. CARDIOVASCULAR: Denies chest pain, shortness of breath, orthopnea, PND or palpitations. RESPIRATORY: Denies cough. GASTROINTESTINAL: Denies abdominal pain, diarrhea, constipation, nausea or vomiting. MUSCULOSKELETAL: Denies myalgias. NEUROLOGIC: Denies numbness, tingling, headacbe or weakness. ENDOCRINE: Denies fatigue, weight change, polydipsia or polyurina. GENITOURINARY: Denies burning, hematuria or urgency with micturation. HEMATOLOGIC: Denies history of anemia or bleeding. PHYSICAL EXAMINATION Vitals 95/61, heart rate 90, afebrile, saturations 99% on 3 L nasal cannula CONSTITUTIONAL: No apparent distress. HEENT: Head is normocephalic. Pupils are equal, round. Sclerae anicteric. Mucous membranes of the mouth are moist. No JVD. CHEST EXAMINATION: Lungs are rhonci bilaterally to auscultation. No chest wall tenderness is noted on palpation or with deep breathing. HEART EXAMINATION: Irregular rate and rhythm. S1, S2 heard. Systolic ejection murmur at the base ABDOMEN: Soft, nontender. Positive bowel sounds. EXTREMITIES: 2+ peripheral pulses, no lower extremity edema and no calf tenderness. SKIN: warm, dry NEUROLOGIC EXAMINATION: Patient is awake, alert and oriented x3. ASSESSMENT Persistent atrial fibrillation, on Eliquis, rates are currently controlled Hypotension Lactic acidosis Bilateral lower extremity cellulitis Dyslipidemia Type 2 diabetes Mild nonobstructive coronary artery disease Aortic stenosis History of hypertension PLAN -Continue metoprolol tartrate 25 mg twice a day, Eliquis, statin, not increase beta shawn at this time due to hypotension and patient's rates also slightly elevated due to infection -Continue PO Lasix 80 mg twice a day -Cellulitis management per primary, infectious disease has been consultation -Continue cardiac telemetry -Further recommendations based on clinical course Nurse practitioner note has been reviewed by physician. Signing provider agrees with the documented findings, assessment, and plan of care. 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 lt leg gives out wears brace History of Any Multi-Drug Resistant Organisms: None Reported Past Surgical History: Back Surgery, Breast Surgery, Cholecystectomy, Joint Replacement, Orthopedic Surgery Additional Past Surgical History / Comment(s): thelma knee replac; L shoulder replac.; carpel tunnel vaginal duct cyst; benign breast surg; cataracts; retinal repair left eye. BAck surgery, hernia repair Past Anesthesia/Blood Transfusion Reactions: No Reported Reaction Past Psychological History: Depression Smoking Status: Never smoker Past Alcohol Use History: None Reported Past Drug Use History: None Reported - Past Family History Father Family Medical History: Deep Vein Thrombosis (DVT) Son(s) Family Medical History: Deep Vein Thrombosis (DVT) Mother Family Medical History: Cancer Additional Family Medical History / Comment(s): Mother had cancer in her back. Daughter(s) Family Medical History: Blood Disorder Additional Family Medical History / Comment(s): Daughter has MTHFR factor and pt's grandson has lyme factor V and grand daughter has MTHFR. Medications and Allergies Home Medications Medication Instructions Recorded Confirmed Type Simvastatin [Zocor] 10 mg PO HS 08/25/17 01/21/22 History glipiZIDE [Glucotrol] 5 mg PO BID 08/25/17 01/21/22 History metFORMIN HCL [Glucophage] 1,000 mg PO BID 08/25/17 01/21/22 History Omeprazole [PriLOSEC] 20 mg PO DAILY 08/19/19 01/21/22 History Potassium Chloride [Klor-Con 20] 20 meq PO BID 08/19/19 01/21/22 History Apixaban [Eliquis] 5 mg PO BID 12/13/19 01/21/22 History Dulaglutide [Trulicity] 0.75 mg SQ TH 07/01/21 01/21/22 History Furosemide [Lasix] 80 mg PO BID 07/01/21 01/21/22 History Metoprolol Tartrate [Lopressor] 25 mg PO BID 07/01/21 01/21/22 History Ammonium Lactate Cream [Lac-Hydrin 1 applic TOPICAL BID 01/21/22 01/21/22 History 12% Cream] Cephalexin [Keflex] 500 mg PO TID 01/21/22 01/21/22 History Empagliflozin [Jardiance] 10 mg PO DAILY 01/21/22 01/21/22 History INSULIN ASPART (NovoLOG) [NovoLOG See Protocol SQ ACHS 01/21/22 01/21/22 History (formulary)] Nystatin/Triamcin 1 applic TOPICAL BID 01/21/22 01/21/22 History [Nystatin-Triamcinolone] SILVER sulfADIAZINE Cream 1 applic TOPICAL DAILY 01/21/22 01/21/22 History [Silvadene 1% Cream] Venlafaxine HCl [Effexor XR] 75 mg PO DAILY 01/21/22 01/21/22 History Allergies Allergy/AdvReac Type Severity Reaction Status Date / Time Penicillins Allergy Rash/Hives Verified 01/21/22 16:20 azithromycin AdvReac Dyspnea & Verified 01/21/22 16:20 nausea ciprofloxacin [From Cipro] AdvReac Dyspnea & Verified 01/21/22 16:20 nausea Physical Exam Vitals: Vital Signs Temp Pulse Pulse Resp BP BP Pulse Ox 01/22/22 08:00 90 17 01/22/22 06:55 97.7 F 90 17 95/61 99 01/22/22 02:00 78 20 01/22/22 01:40 98.1 F 81 20 95/63 94 L 01/21/22 21:42 91/61 01/21/22 21:00 78 20 01/21/22 20:49 98.1 F 78 20 80/48 95 01/21/22 20:12 114 H 18 100/64 99 01/21/22 17:58 97 18 100/64 100 01/21/22 14:58 90 L 01/21/22 14:57 87 L 01/21/22 14:30 103 H 19 129/98 01/21/22 13:58 18 01/21/22 13:56 115 H 01/21/22 13:38 97.1 F L 113 H 18 117/87 94 L Intake and Output 01/21/22 01/22/22 01/22/22 22:59 06:59 14:59 Intake Total 118 Output Total 500 Balance -500 118 Intake: Oral 118 Output: Urine 500 Other: Voiding Method External Catheter External Catheter External Catheter # Bowel Movements 0 Weight 129.274 kg Results 01/22/22 08:56 01/22/22 08:56 Cardiac Enzymes 01/21/22 01/21/22 01/22/22 Range/Units 14:36 14:36 08:56 AST 20 18 (14-36) U/L Troponin I <0.012 (0.000-0.034) ng/mL Coagulation 01/21/22 Range/Units 14:36 PT 11.4 (9.0-12.0) sec APTT 27.9 (22.0-30.0) sec CBC 01/21/22 01/22/22 Range/Units 14:36 08:56 WBC 10.6 8.2 (3.8-10.6) k/uL RBC 4.83 4.37 (3.80-5.40) m/uL Hgb 11.8 10.6 L (11.4-16.0) gm/dL Hct 39.3 36.0 (34.0-46.0) % Plt Count 314 257 (150-450) k/uL Comprehensive Metabolic Panel 01/21/22 01/22/22 Range/Units 14:36 08:56 Sodium 137 136 L (137-145) mmol/L Potassium 4.8 4.7 (3.5-5.1) mmol/L Chloride 101 105 (98-107) mmol/L Carbon Dioxide 25 29 (22-30) mmol/L BUN 24 H 21 H (7-17) mg/dL Creatinine 0.93 0.84 (0.52-1.04) mg/dL Glucose 140 H 160 H (74-99) mg/dL Calcium 8.7 8.2 L (8.4-10.2) mg/dL AST 20 18 (14-36) U/L ALT 15 11 (4-34) U/L Alkaline Phosphatase 103 89 (38-126) U/L Total Protein 7.5 6.3 (6.3-8.2) g/dL Albumin 3.4 L 2.7 L (3.5-5.0) g/dL Current Medications Generic Name Dose Route Start Last Admin Trade Name Freq PRN Reason Stop Dose Admin Acetaminophen 650 mg 01/21/22 19:01 Acetaminophen Tab 325 Mg Tab PO Q6HR PRN Mild Pain or Fever > 100.5 Apixaban 5 mg 01/21/22 22:30 01/22/22 08:09 Apixaban 5 Mg Tab PO 5 mg BID ALINA Administration Protocol Atorvastatin Calcium 10 mg 01/21/22 22:30 01/21/22 22:47 Atorvastatin 10 Mg Tab PO 10 mg HS ALINA Administration Furosemide 80 mg 01/22/22 09:00 01/22/22 08:09 Furosemide 80 Mg Tab PO 80 mg BID ALINA Administration Glipizide 5 mg 01/22/22 09:00 01/22/22 08:09 Glipizide 5 Mg Tab PO 5 mg BID ALINA Administration Hydromorphone HCl 0.5 mg 01/21/22 19:01 Hydromorphone 1 Mg/Ml 1 Ml Syringe IVP Q3HR PRN Moderate Pain Hydromorphone HCl 1 mg 01/21/22 19:01 Hydromorphone 1 Mg/Ml 1 Ml Syringe IVP Q3HR PRN Severe Pain Vancomycin HCl 2,250 mg/ 500 mls @ 167 mls/hr 01/22/22 14:00 Sodium Chloride IVPB Q24H ALINA Meropenem 1 gm/ Sodium 100 mls @ 33.3 mls/hr 01/22/22 07:00 01/22/22 08:46 Chloride IVPB 33.3 mls/hr Q8H ALINA Administration Protocol Insulin Aspart 0 unit 01/22/22 07:30 01/22/22 08:10 Insulin Aspart (Novolog) 100 Unit/Ml Vial SQ 1 unit ACHS [facility] Administration Protocol Lactic Acid 1 applic 01/22/22 09:00 Ammonium Lactate 12% Cream 140 Gm Tube TOPICAL BID [facility] Protocol Melatonin 3 mg 01/21/22 21:00 Melatonin 3 Mg Tablet PO HS PRN Insomnia Metformin HCl 1,000 mg 01/22/22 09:00 01/22/22 08:09 Metformin 500 Mg Tab PO 1,000 mg BID ALINA Administration Metoprolol Tartrate 25 mg 01/21/22 22:30 01/22/22 08:09 Metoprolol Tartrate 25 Mg Tab PO 25 mg BID ALINA Administration Naloxone HCl 0.2 mg 01/21/22 18:51 Naloxone 0.4 Mg/Ml 1 Ml Vial IV Q2M PRN Opioid Reversal Non-Formulary Medication 10 mg 01/22/22 09:00 01/22/22 09:45 Empagliflozin [Jardiance] PO Not Given DAILY ALINA Nystatin 1 applic 01/22/22 09:00 01/22/22 08:10 Nystatin 100,000unit/Gm Cream 30 Gm Tube TOPICAL 1 applic BID ALINA Administration Ondansetron HCl 4 mg 01/21/22 19:01 Ondansetron 4 Mg/2 Ml Vial IVP Q8HR PRN Nausea And Vomiting Pantoprazole Sodium 40 mg 01/22/22 09:00 01/22/22 08:09 Pantoprazole 40 Mg Tablet PO 40 mg DAILY ALINA Administration Potassium Chloride 20 meq 01/22/22 09:00 01/22/22 08:09 Potassium Chloride Er 20 Meq Tab.Er PO 20 meq BID ALINA Administration Silver Sulfadiazine 1 applic 01/22/22 09:00 01/22/22 08:10 Silver Sulfadiazine 1% Cream 25 Gm Tube TOPICAL 1 applic DAILY ALINA Administration Triamcinolone Acetonide 1 applic 01/22/22 09:00 01/22/22 08:10 Triamcinolone 0.1% Cream 80 Gm Tube TOPICAL 1 applic BID ALINA Administration Venlafaxine HCl 75 mg 01/22/22 09:00 01/22/22 08:09 Venlafaxine Hcl Er 75 Mg Cap PO 75 mg DAILY ALINA Administration Intake and Output 01/21/22 01/22/22 01/22/22 22:59 06:59 14:59 Intake Total 118 Output Total 500 Balance -500 118 Intake: Oral 118 Output: Urine 500 Other: Voiding Method External Catheter External Catheter External Catheter # Bowel Movements 0 Weight 129.274 kg 01/22/22 08:56 01/22/22 08:56
[2022-01-22 11:46] LABS: Glucose,Whole Blood 117 mg/dL (75-99)
[2022-01-22] MEDS ORDERED: VANCOMYCIN 2,250 MG in SODIUM CHLORIDE 0.9% 500 ML 500 ML IVPB SCH (14:00)
[2022-01-22] MEDS: CEFEPIME 2 GM in SODIUM CHLORIDE 0.9% 100 ML IVPB SCH (15:44)
[2022-01-22] MEDS ORDERED: ALBUTEROL NEBULIZED 2.5 MG/3 ML INHALATION PRN (16:56)
--- NOTE | 2022-01-22 17:10 | CT ---
EXAMINATION TYPE: CT lower extremity LT wo con DATE OF EXAM: 01/22/2022 COMPARISON: None HISTORY: LEFT THIGH ABSCESS CT DLP: 1825.7 mGycm Automated exposure control for dose reduction was used. Images obtained from the acetabulum to the proximal tibial without contrast. There is left knee prosthesis. Components appear in anatomic position. There is severe narrowing of t he left hip joint space with spur formation. There is no evidence of femoral fracture. The acetabulum is intact. There is irregular increased density in the subcutaneous fat over the medial lower femur. A up to 6 cm in diameter and could be multifocal abscess. This area of the thigh not entirely includ ed on the exam. Exam limited by patient's size. There is mild subcutaneous edema around the lower thi gh. I see no focal bone destruction. IMPRESSION: Partly visualized subcutaneous fluid density could be an abscess in the medial lower thigh. Moderately severe osteoarthritis in the hip joint. No fracture. No sign of osteomyelitis.
[2022-01-22 17:19] LABS: Glucose,Whole Blood 84 mg/dL (75-99)
[2022-01-22 20:55] LABS: Glucose,Whole Blood 156 mg/dL (75-99)
[2022-01-22] MEDS: ATORVASTATIN 10 MG TAB PO SCH (21:14)
[2022-01-22] MEDS: BENZONATATE 100 MG CAP PO PRN (21:40)
--- NOTE | 2022-01-22 23:21 | P.CONS ---
History of Present Illness - Reason for Consult Consult date: 01/22/22 Left thigh cellulitis Requesting physician: Kinjal Liu - Chief Complaint Weakness and left thigh pain x few days - History of Present Illness Patient is 86-year-old female presenting to the ER yesterday afternoon as the patient was sent from her PCP office for evaluation of low blood pressure and elevated heart rate in this patient apparently has recently been treated for extremity cellulitis with oral Keflex the patient taken for about 9 days patient mention the right foot seems to be improving however the patient started having increasing pain swelling redness and some drainage to the left medial thigh area patient mention it started after she did have an ultrasound done to rule out DVT in the leg patient been complaining of pain to the left thigh area to be more of a dull aching at times sharp 6-7 out of 10 head no radiation and did have some drainage patient not very sure about the color of the drainage patient on presentation to the hospital was afebrile patient did have a normal white count with a left shift kidney function has been normal liver enzymes are normal urine was negative greer PCR was negative patient did have local cultures obtained which are currently pending patient did have a chest x-ray basilar atelectasis also have a CT angiogram of the chest which did shows cardiomegaly possible right-sided heart failure no pulmonary embolism patient was started on meropenem and vancomycin infectious disease was consulted for further management of antibiotic therapy Review of Systems Positive point has been mentioned in the HPI rest of the systems are negative Past Medical History Past Medical History: Blood Disorder, Diabetes Mellitus, Deep Vein Thrombosis (DVT), GERD/Reflux, Hyperlipidemia, Hypertension, Osteoarthritis (OA), Pneumonia, Pulmonary Embolus (PE), Renal Disease Additional Past Medical History / Comment(s): Hx of PE & DVT, mass on right kidney, cellulitis BLE, falls at home, spinal stenosis status post laminectomy. lt leg gives out wears brace History of Any Multi-Drug Resistant Organisms: None Reported Past Surgical History: Back Surgery, Breast Surgery, Cholecystectomy, Joint Replacement, Orthopedic Surgery Additional Past Surgical History / Comment(s): thelma knee replac; L shoulder replac.; carpel tunnel vaginal duct cyst; benign breast surg; cataracts; retinal repair left eye. BAck surgery, hernia repair Past Anesthesia/Blood Transfusion Reactions: No Reported Reaction Past Psychological History: Depression Smoking Status: Never smoker Past Alcohol Use History: None Reported Past Drug Use History: None Reported - Past Family History Father Family Medical History: Deep Vein Thrombosis (DVT) Son(s) Family Medical History: Deep Vein Thrombosis (DVT) Mother Family Medical History: Cancer Additional Family Medical History / Comment(s): Mother had cancer in her back. Daughter(s) Family Medical History: Blood Disorder Additional Family Medical History / Comment(s): Daughter has MTHFR factor and pt's grandson has lyme factor V and grand daughter has MTHFR. Medications and Allergies Home Medications Medication Instructions Recorded Confirmed Type Simvastatin [Zocor] 10 mg PO HS 08/25/17 01/21/22 History glipiZIDE [Glucotrol] 5 mg PO BID 08/25/17 01/21/22 History metFORMIN HCL [Glucophage] 1,000 mg PO BID 08/25/17 01/21/22 History Omeprazole [PriLOSEC] 20 mg PO DAILY 08/19/19 01/21/22 History Potassium Chloride [Klor-Con 20] 20 meq PO BID 08/19/19 01/21/22 History Apixaban [Eliquis] 5 mg PO BID 12/13/19 01/21/22 History Dulaglutide [Trulicity] 0.75 mg SQ TH 07/01/21 01/21/22 History Furosemide [Lasix] 80 mg PO BID 07/01/21 01/21/22 History Metoprolol Tartrate [Lopressor] 25 mg PO BID 07/01/21 01/21/22 History Ammonium Lactate Cream [Lac-Hydrin 1 applic TOPICAL BID 01/21/22 01/21/22 History 12% Cream] Cephalexin [Keflex] 500 mg PO TID 01/21/22 01/21/22 History Empagliflozin [Jardiance] 10 mg PO DAILY 01/21/22 01/21/22 History INSULIN ASPART (NovoLOG) [NovoLOG See Protocol SQ ACHS 01/21/22 01/21/22 History (formulary)] Nystatin/Triamcin 1 applic TOPICAL BID 01/21/22 01/21/22 History [Nystatin-Triamcinolone] SILVER sulfADIAZINE Cream 1 applic TOPICAL DAILY 01/21/22 01/21/22 History [Silvadene 1% Cream] Venlafaxine HCl [Effexor XR] 75 mg PO DAILY 01/21/22 01/21/22 History Allergies Allergy/AdvReac Type Severity Reaction Status Date / Time Penicillins Allergy Rash/Hives Verified 01/21/22 16:20 azithromycin AdvReac Dyspnea & Verified 01/21/22 16:20 nausea ciprofloxacin [From Cipro] AdvReac Dyspnea & Verified 01/21/22 16:20 nausea Physical Exam Vitals: Vital Signs Temp Pulse Pulse Resp BP BP Pulse Ox 01/22/22 08:00 90 17 01/22/22 06:55 97.7 F 90 17 95/61 99 01/22/22 02:00 78 20 01/22/22 01:40 98.1 F 81 20 95/63 94 L 01/21/22 21:42 91/61 01/21/22 21:00 78 20 01/21/22 20:49 98.1 F 78 20 80/48 95 01/21/22 20:12 114 H 18 100/64 99 01/21/22 17:58 97 18 100/64 100 01/21/22 14:58 90 L 01/21/22 14:57 87 L 01/21/22 14:30 103 H 19 129/98 01/21/22 13:58 18 01/21/22 13:56 115 H 01/21/22 13:38 97.1 F L 113 H 18 117/87 94 L Intake and Output 01/21/22 01/22/22 01/22/22 22:59 06:59 14:59 Intake Total 118 Output Total 500 Balance -500 118 Intake: Oral 118 Output: Urine 500 Other: Voiding Method External Catheter External Catheter External Catheter # Bowel Movements 0 Weight 129.274 kg GENERAL DESCRIPTION: An elderly female lying in bed, no distress. No tachypnea or accessory muscle of respiration use. HEENT: Shows Pallor , no scleral icterus. Oral mucous membrane is dry. No pharyngeal erythema or thrush NECK: Trachea central, no thyromegaly. LUNGS: Unlabored breathing. Clear to auscultation anteriorly. No wheeze or crackle. HEART: S1, S2, regular rate and rhythm. No loud murmur ABDOMEN: Soft, no tenderness , guarding or rigidity, no organomegaly EXTREMITIES: Left medial thigh did have area of induration with no open wound and minimal drainage. SKIN: No rash, no masses palpable. NEUROLOGICAL: The patient is awake, alert, oriented x3, mood and affect normal. Results CBC & Chem 7: 01/22/22 08:56 01/22/22 08:56 Labs: Abnormal Lab Results - Last 24 Hours (Table) 01/21/22 01/21/22 01/21/22 Range/Units 14:36 14:36 14:40 Hgb (11.4-16.0) gm/dL MCH 24.4 L (25.0-35.0) pg MCHC 30.1 L (31.0-37.0) g/dL RDW 18.4 H (11.5-15.5) % Neutrophils # 8.7 H (1.3-7.7) k/uL Lymphocytes # (1.0-4.8) k/uL Sodium (137-145) mmol/L BUN 24 H (7-17) mg/dL Glucose 140 H (74-99) mg/dL POC Glucose (mg/dL) (75-99) mg/dL Plasma Lactic Acid Afshin (0.7-2.0) mmol/L Calcium (8.4-10.2) mg/dL Albumin 3.4 L (3.5-5.0) g/dL Ur Specific [place] 1.045 H (1.001-1.035) Urine Glucose (UA) 4+ H (Negative) 01/21/22 01/22/22 01/22/22 Range/Units 18:18 06:58 08:56 Hgb 10.6 L (11.4-16.0) gm/dL MCH 24.2 L (25.0-35.0) pg MCHC 29.4 L (31.0-37.0) g/dL RDW 18.3 H (11.5-15.5) % Neutrophils # (1.3-7.7) k/uL Lymphocytes # 0.9 L (1.0-4.8) k/uL Sodium (137-145) mmol/L BUN (7-17) mg/dL Glucose (74-99) mg/dL POC Glucose (mg/dL) 135 H (75-99) mg/dL Plasma Lactic Acid Afshin 3.7 H* (0.7-2.0) mmol/L Calcium (8.4-10.2) mg/dL Albumin (3.5-5.0) g/dL Ur Specific [place] (1.001-1.035) Urine Glucose (UA) (Negative) 01/22/22 01/22/22 Range/Units 08:56 11:44 Hgb (11.4-16.0) gm/dL MCH (25.0-35.0) pg MCHC (31.0-37.0) g/dL RDW (11.5-15.5) % Neutrophils # (1.3-7.7) k/uL Lymphocytes # (1.0-4.8) k/uL Sodium 136 L (137-145) mmol/L BUN 21 H (7-17) mg/dL Glucose 160 H (74-99) mg/dL POC Glucose (mg/dL) 117 H (75-99) mg/dL Plasma Lactic Acid Afshin (0.7-2.0) mmol/L Calcium 8.2 L (8.4-10.2) mg/dL Albumin 2.7 L (3.5-5.0) g/dL Ur Specific [place] (1.001-1.035) Urine Glucose (UA) (Negative) Assessment and Plan (1) Cellulitis of left leg Current Visit: Yes Status: Acute Code(s): L03.116 - CELLULITIS OF LEFT LOWER LIMB SNOMED Code(s): 488528450 Plan: 1patient with left medial thigh area pain swelling redness and some drainage in this patient did have an area of induration and concerning for possible underlying abscess will need to cover for both gram-positive as well as gram- negative pathogen in this patient recently completed course of oral Keflex. 2we will obtain a CT of the left medial thigh area to make sure no evidence of any abscess which if positive patient will need surgical evaluation for drainage of that abscess. 3vancomycin pharmacy to dose target trough of 15 while watching kidney funct ion and vancomycin trough closely. 4discontinue meropenem and add cefepime to cover for the gram-negative's We will follow on clinical condition and cultures to further adjust medication if needed Thank you for this consultation will follow this patient along with you Time with Patient: Greater than 30
[2022-01-23] MEDS: CEFEPIME 2 GM in SODIUM CHLORIDE 0.9% 100 ML IVPB SCH ×2 (02:11→14:19)
[2022-01-23 06:57] LABS: Glucose,Whole Blood 130 mg/dL (75-99)
[2022-01-23] MEDS: INSULIN ASPART (NovoLOG) 100 UNIT/ML VIAL SQ SCH ×4 (07:14→22:25)
[2022-01-23] MEDS: NON FORMULARY DRUG (Empagliflozin [Jardiance] 10 MG Tablet) PO SCH (07:15)
[2022-01-23] MEDS: metFORMIN 500 MG TAB PO SCH (07:51)
[2022-01-23] MEDS: FUROSEMIDE 80 MG TAB PO SCH ×2 (07:51→07:52)
[2022-01-23] MEDS: POTASSIUM CHLORIDE ER 20 MEQ TAB.ER PO SCH ×2 (07:51→22:25)
[2022-01-23] MEDS: PANTOPRAZOLE 40 MG TABLET PO SCH (07:51)
[2022-01-23] MEDS: APIXABAN 5 MG TAB PO SCH ×2 (07:52→22:25)
[2022-01-23] MEDS: glipiZIDE 5 MG TAB PO SCH ×2 (07:52→22:24)
[2022-01-23] MEDS: METOPROLOL TARTRATE 25 MG TAB PO SCH ×2 (07:52→22:25)
[2022-01-23] MEDS: VENLAFAXINE HCL ER 75 MG CAP PO SCH ×2 (07:52→07:53)
[2022-01-23] MEDS: NYSTATIN 100,000UNIT/GM CREAM 30 GM TUBE TOPICAL SCH ×2 (07:54→22:24)
[2022-01-23] MEDS: AMMONIUM LACTATE 12% CREAM 140 GM TUBE TOPICAL SCH ×2 (07:54→22:24)
[2022-01-23] MEDS: TRIAMCINOLONE 0.1% CREAM 80 GM TUBE TOPICAL SCH (07:55)
[2022-01-23 08:23] LABS: ALT 11 U/L (4-34); AST 18 U/L (14-36); African American GFR (CKD) 73 (>60 ml/min/1.73 sqM); Albumin 2.7 g/dL (3.5-5.0); Albumin/Globulin Ratio 0.7; Alkaline Phosphatase 89 U/L (38-126); Anion Gap 4 mmol/L; Blood Urea Nitrogen 21 mg/dL (7-17); Calcium 8.1 mg/dL (8.4-10.2); Carbon Dioxide 27 mmol/L (22-30); Chloride 106 mmol/L (98-107); Globulin 3.8 g/dL; Glucose 134 mg/dL (74-99); Non-African American GFR(CKD) 63 (>60 ml/min/1.73 sqM); Potassium 4.6 mmol/L (3.5-5.1); Sodium 137 mmol/L (137-145); Total Bilirubin 0.5 mg/dL (0.2-1.3); Total Protein 6.5 g/dL (6.3-8.2)
[2022-01-23] MEDS: BENZONATATE 100 MG CAP PO PRN ×2 (10:16→22:54)
--- NOTE | 2022-01-23 10:32 | P.HPIM ---
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, morbid obesity, diabetes mellitus type 2, hypertension, hyperlipidemia, history of spinal stenosis status post surgery in [place], history of small bowel obstruction secondary to incarcerated umbilical hernia status post repair of the hernia with resolution of the bowel obstruction, history of atrial fibrillation, history of chronic diastolic heart failure with significant for hypertension and significant venous hypertension both lower extremities and significant edema, patient was seen in the office about a week ago when she came down with a blister to the dorsal acid of the right foot with significant venous hypertension and significant edema both lower extremities, patient was having hard time taking diuretics because of the urinary incontinence and she is not able to make it to the bathroom on time, at that time she was placed on Lasix 80 mg orally twice every day Tuesday and Tuesday and 80 mg in the morning and 40 mg the afternoon on Tuesday and Tuesday she wason oral antibiotic in the form of Keflex 500 mg orally 3 times every day for 10 days, she was supposed to follow-up with us about a week later when she came to the office yesterday with significant erythema to the right lower extremity and the left lower extremity as well as significant left thigh erythema with significant tissue swelling and a necrotic area that is draining seropurulent purulent material at that time she was ready to go to the emergency perforated evaluation and possible sepsis she was seen in emergency department and she was found to have an elevated lactic acid 3.7 she was somewhat hypotensive, initially she was in atrial fibrillation with rapid ventricular response, she was placed on her Toprol 25 mg at bedtime, and she was started on IV fluid the form of normal saline at 500 mL 1 and her blood pressure normalizes, her lactic acid normalizes, she was also placed on IV antibiotic in the form of vancomycin as well as meropenem, and will cultures aerobic and anaerobic were obtained as well as blood cultures, infectious disease consultation as well as cardiology consultation was obtained. REVIEW OF SYSTEMS Constitutional: Reports fever, Reports chills, no night sweats. positive for w eight change. Reports weakness, Reports fatigue Reports lethargy. Reports daytime sleepiness. HEENT: No headache. No blurred vision or double vision, no loss of vision. No dizziness. No nasal drainage or congestion. No epistaxis. No sore throat, hard of hearing Lungs: positive for shortness of breath, positive for dry cough, no sputum production. positive for wheezing. Cardiovascular: No chest pain, positive for lower extremity edema, positive for palpitations, positive for paroxysmal nocturnal dyspnea. No orthopnea. No lightheadedness or dizziness. No syncopal episodes. Abdominal: No abdominal pain. No nausea, vomiting. No diarrhea. No constipation. No bloody or tarry stools. Reports loss of appetite. Genitourinary: No dysuria, increased frequency, urgency. No urinary retention. Musculoskeletal: No myalgias. Reports muscle weakness, Reports gait dysfunction, Reports falls. positive for back pain. No neck pain. Integumentary: Reports wound to the left high with significant tissue edema, reports lower extremity redness, there is denuded scab on the orsal aspect of the right foot, and blood blisters to the tip of her toes on the right due to trauma Neurologic: No aphasia. No facial droop. No change in mentation. No head injury. No headache. No paralysis. No paresthesia. Psychiatric: positive for depression. No anxiety. No mood swings. Endocrine: positive for abnormal blood sugars. positive for weight change. 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 Gastroesophageal reflux disease Paroxysmal atrial fibrillation Chronic diastolic heart failure Valvular heart disease with severe tricuspid regurgitation, aortic stenosis, mild mitral regurgitation Severe pulmonary hypertension Hypertension Hyperlipidemia Spinal stenosis Morbid obesity Chronic kidney disease stage II Recurrent depression Small bowel obstruction SURGICAL HISTORY Cholecystectomy Bilateral knee replacement Left shoulder replacement Carpal tunnel release Vaginal duct cyst Benign breast surgery Cataract removal and intraocular lens implants Retinal repair left eye Umbilical Hernia repair 2019 Lumbar decompression 2020 SOCIAL HISTORY Patient is a lifelong nonsmoker, no alcohol use, no marijuana or illicit drug use. Patient lives at home with her . FAMILY HISTORY Father at age 101 from natural causes. Mother at age 91 from CVA. Patient has 2 brothers living. She also has 1 son and 2 daughters with no major medical problems. PHYSICAL EXAMINATION Gen: This is an 86-year-old female, sitting up in bed in no apparent distress. HEENT: Head is atraumatic, normocephalic. Pupils equal, round. Sclerae is anicteric, mucous membranes of the mouth are somewhat dry, there is minimal thrush. NECK: Supple. No JVD. No lymphadenopathy. No thyromegaly. LUNGS: Decreased breath sounds at the bases, few rhonchi, minimal expiratory wheezes, no chest wall tenderness, no intercostal retractions. HEART: first heart sound is depressed, second heart sound is normal, i rregularly irregular, there is systolic ejection murmur 2/6 located at the left sternal border. ABDOMEN: morbidly obese abdomen, soft nontender nondistended, positive bowel sounds. EXTREMITIES: 3+ bilateral pitting edema to the lower extremities, erythema noted to bilateral lower legs, there is a scabbed blister to the right foot and there is erythema with tissue edema to the left thigh with drainage of sero-purulent material NEUROLOGICAL: Patient is awake, alert and oriented x3. Cranial nerves 2 through 12 are grossly intact significant weakness to both lower extremity his right more than left, with right foot drop. ASSESSMENT AND PLAN 1. Sepsis secondary to lower extremity cellulitis and ulcer to right dorsal foot and abscess of the left thigh. aerobic and anaerobic cultures, blood cultures, start the patient on vancomycin as well as meropenem, monitor the patient very closely, IV fluid was given at 500 mL over half an hour, also infectious disease consultation. 2. Lactic acidosis due to sepsis continue IV antibiotic, continue IV fluid res uscitation, repeat lactic acid in 6 hours. 3. Atrial fibrillation with rapid ventricular response. Patient was given a bolus of normal saline at 500 mL, she was started back on her Toprol-XL 25 mg orally at bedtime, her blood pressure is much better and her heart rate is much better. Obtain cardiology consultation. 4. Anemia of chronic diseases. Monitor the patient's CBC over the next 24 hours. We'll check the patient iron panel and ferritin level along with B12 and folic acid. 5. History of multiple DVTs and PE on fdc anticoagulation. Continue eliquis 5 mg twice daily. Patient recently underwent [place] filter on November 2019 prior to laminectomy surgery. 6. Paroxysmal atrial fibrillation. Continue metoprolol 25 mg twice daily, eliquis 5 mg twice daily. 7. Valvular heart disease with severe tricuspid regurgitation, aortic stenosis with mean gradient of 36 mmHg, mild mitral regurgitation. 8. Severe pulmonary hypertension with RVSP 60 mmHg. continue patient on Toprol- XL 25 mg at bedtime, continue patient on Lasix 80 mg orally twice every day. 9. Hypertension and hypertensive cardiovascular disease. Continue patient on Toprol XL 25 mg orally once every day. 10. Hyperlipidemia. Continue atorvastatin 10 mg at bedtime. 11. Diabetes mellitus type 2. Continue patient on glipizide 5 mg orally twice every day,hold metformin 2 days post contrast,Jardiance 10 mg orally daily along with a slight scale insulin. 12. Spinal stenosis status post laminectomy, stable. PT and OT evaluations once stabilized. 13. Recurrent depression. Continue patient on Effexor 75 mg orally once every day. 14. Gastroesophageal reflux disease and GI prophylaxis. Protonix 40 mg orally once every day. 15. DVT prophylaxis. Eliquis 5 mg orally twice every day. 16. Admit to inpatient. Estimated length of stay 2 midnights. 17. Full code. 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 lt leg gives out wears brace History of Any Multi-Drug Resistant Organisms: None Reported Past Surgical History: Back Surgery, Breast Surgery, Cholecystectomy, Joint Replacement, Orthopedic Surgery Additional Past Surgical History / Comment(s): thelma knee replac; L shoulder replac.; carpel tunnel vaginal duct cyst; benign breast surg; cataracts; retinal repair left eye. BAck surgery, hernia repair Past Anesthesia/Blood Transfusion Reactions: No Reported Reaction Past Psychological History: Depression Smoking Status: Never smoker Past Alcohol Use History: None Reported Past Drug Use History: None Reported - Past Family History Father Family Medical History: Deep Vein Thrombosis (DVT) Son(s) Family Medical History: Deep Vein Thrombosis (DVT) Mother Family Medical History: Cancer Additional Family Medical History / Comment(s): Mother had cancer in her back. Daughter(s) Family Medical History: Blood Disorder Additional Family Medical History / Comment(s): Daughter has MTHFR factor and pt's grandson has lyme factor V and grand daughter has MTHFR. Medications and Allergies Home Medications Medication Instructions Recorded Confirmed Type Simvastatin [Zocor] 10 mg PO HS 08/25/17 01/21/22 History glipiZIDE [Glucotrol] 5 mg PO BID 08/25/17 01/21/22 History metFORMIN HCL [Glucophage] 1,000 mg PO BID 08/25/17 01/21/22 History Omeprazole [PriLOSEC] 20 mg PO DAILY 08/19/19 01/21/22 History Potassium Chloride [Klor-Con 20] 20 meq PO BID 08/19/19 01/21/22 History Apixaban [Eliquis] 5 mg PO BID 12/13/19 01/21/22 History Dulaglutide [Trulicity] 0.75 mg SQ TH 07/01/21 01/21/22 History Furosemide [Lasix] 80 mg PO BID 07/01/21 01/21/22 History Metoprolol Tartrate [Lopressor] 25 mg PO BID 07/01/21 01/21/22 History Ammonium Lactate Cream [Lac-Hydrin 1 applic TOPICAL BID 01/21/22 01/21/22 Hist ory 12% Cream] Cephalexin [Keflex] 500 mg PO TID 01/21/22 01/21/22 History Empagliflozin [Jardiance] 10 mg PO DAILY 01/21/22 01/21/22 History INSULIN ASPART (NovoLOG) [NovoLOG See Protocol SQ ACHS 01/21/22 01/21/22 History (formulary)] Nystatin/Triamcin 1 applic TOPICAL BID 01/21/22 01/21/22 History [Nystatin-Triamcinolone] SILVER sulfADIAZINE Cream 1 applic TOPICAL DAILY 01/21/22 01/21/22 History [Silvadene 1% Cream] Venlafaxine HCl [Effexor XR] 75 mg PO DAILY 01/21/22 01/21/22 History Allergies Allergy/AdvReac Type Severity Reaction Status Date / Time Penicillins Allergy Rash/Hives Verified 01/21/22 16:20 azithromycin AdvReac Dyspnea & Verified 01/21/22 16:20 nausea ciprofloxacin [From Cipro] AdvReac Dyspnea & Verified 01/21/22 16:20 nausea Physical Exam Vitals: Vital Signs Temp Pulse Pulse Resp BP BP Pulse Ox 01/22/22 06:55 97.7 F 90 17 95/61 99 01/22/22 02:00 78 20 01/22/22 01:40 98.1 F 81 20 95/63 94 L 01/21/22 21:42 91/61 01/21/22 21:00 78 20 01/21/22 20:49 98.1 F 78 20 80/48 95 01/21/22 20:12 114 H 18 100/64 99 01/21/22 17:58 97 18 100/64 100 01/21/22 14:58 90 L 01/21/22 14:57 87 L 01/21/22 14:30 103 H 19 129/98 01/21/22 13:58 18 01/21/22 13:56 115 H 01/21/22 13:38 97.1 F L 113 H 18 117/87 94 L Intake and Output 01/21/22 01/22/22 01/22/22 22:59 06:59 14:59 Output Total 500 Balance -500 Output: Urine 500 Other: Voiding Method External Catheter External Catheter # Bowel Movements 0 Weight 129.274 kg Results CBC & Chem 7: 01/22/22 08:56 01/23/22 06:53 Labs: Abnormal Lab Results - Last 24 Hours (Table) 01/21/22 01/21/22 01/21/22 Range/Units 14:36 14:36 14:40 MCH 24.4 L (25.0-35.0) pg MCHC 30.1 L (31.0-37.0) g/dL RDW 18.4 H (11.5-15.5) % Neutrophils # 8.7 H (1.3-7.7) k/uL BUN 24 H (7-17) mg/dL Glucose 140 H (74-99) mg/dL POC Glucose (mg/dL) (75-99) mg/dL Plasma Lactic Acid Afshin (0.7-2.0) mmol/L Albumin 3.4 L (3.5-5.0) g/dL Ur Specific [place] 1.045 H (1.001-1.035) Urine Glucose (UA) 4+ H (Negative) 01/21/22 01/22/22 Range/Units 18:18 06:58 MCH (25.0-35.0) pg MCHC (31.0-37.0) g/dL RDW (11.5-15.5) % Neutrophils # (1.3-7.7) k/uL BUN (7-17) mg/dL Glucose (74-99) mg/dL POC Glucose (mg/dL) 135 H (75-99) mg/dL Plasma Lactic Acid Afshin 3.7 H* (0.7-2.0) mmol/L Albumin (3.5-5.0) g/dL Ur Specific [place] (1.001-1.035) Urine Glucose (UA) (Negative) Thrombosis Risk Factor Assmnt - Choose All That Apply Each Factor Represents 1 point: Obesity (BMI >25), Swollen legs (current) Each Risk Factor Represents 2 Points: Patient confined to bed Each Risk Factor Represents 3 Points: Age 75 years or older, History of DVT/PE Thrombosis Risk Factor Assessment Total Risk Factor Score: 10 Thrombosis Risk Factor Assessment Level: High Risk
[2022-01-23 11:26] LABS: Glucose,Whole Blood 178 mg/dL (75-99)
--- NOTE | 2022-01-23 11:45 | P.PN ---
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, morbid obesity, diabetes mellitus type 2, hypertension, hyperlipidemia, history of spinal stenosis status post surgery in [place], history of small bowel obstruction secondary to incarcerated umbilical hernia status post repair of the hernia with resolution of the bowel obstruction, history of atrial fibrillation, history of chronic diastolic heart failure with significant for hypertension and significant venous hypertension both lower extremities and significant edema, patient was seen in the office about a week ago when she came down with a blister to the dorsal acid of the right foot with significant venous hypertension and significant edema both lower extremities, patient was having hard time taking diuretics because of the urinary incontinence and she is not able to make it to the bathroom on time, at that time she was placed on Lasix 80 mg orally twice every day Tuesday and Tuesday and 80 mg in the morning and 40 mg the afternoon on Tuesday and Tuesday she wason oral antibiotic in the form of Keflex 500 mg orally 3 times every day for 10 days, she was supposed to follow-up with us [facility] a week later when she came to the office yesterday with significant erythema to the right lower extremity and the left lower extremity as well as significant left thigh erythema with significant tissue swelling and a necrotic area that is draining seropurulent purulent material at that time she was ready to go to the emergency perforated evaluation and possible sepsis she was seen in emergency department and she was found to have an elevated lactic acid 3.7 she was somewhat hypotensive, initially she was in atrial fibrillation with rapid ventricular response, she was placed on her Toprol 25 mg at bedtime, and she was started on IV fluid the form of normal saline at 500 mL 1 and her blood pressure normalizes, her lactic acid normalizes, she was also placed on IV antibiotic in the form of vancomycin as well as meropenem, and will cultures aerobic and anaerobic were obtained as well as blood cultures, infectious disease consultation as well as cardiology consultation was obtained. 01/23: Patient is sitting up in bed is feeling a bit better today, she denies any chest pain, she continues to have some dry cough, she was started yesterday on Tessalon Perles as well as nebulized treatment, she is requiring 3 L nasal cannula, patient was seen in consultation by infectious disease, underwent computed tomography scan of the left lower extremity that showed evidence of possible abscess in the medial aspect of the left thigh we'll consult general surgery Dr. Guzman for evaluation, her antibiotic was switched to vancomycin and cefepime, cultures are still pending, follow-up with the patient very closely. REVIEW OF SYSTEMS Constitutional: Reports fever, Reports chills, no night sweats. positive for weight change. Reports weakness, Reports fatigue Reports lethargy. Reports daytime sleepiness. HEENT: No headache. No blurred vision or double vision, no loss of vision. No dizziness. No nasal drainage or congestion. No epistaxis. No sore throat, h cherelle of hearing Lungs: positive for shortness of breath, positive for dry cough, no sputum production. positive for wheezing. Cardiovascular: No chest pain, positive for lower extremity edema, positive for palpitations, positive for paroxysmal nocturnal dyspnea. No orthopnea. No lightheadedness or dizziness. No syncopal episodes. Abdominal: No abdominal pain. No nausea, vomiting. No diarrhea. No constipation. No bloody or tarry stools. Reports loss of appetite. Genitourinary: No dysuria, increased frequency, urgency. No urinary retention. Musculoskeletal: No myalgias. Reports muscle weakness, Reports gait dysfunction, Reports falls. positive for back pain. No neck pain. Integumentary: Reports wound to the left high with significant tissue edema, reports lower extremity redness, there is denuded scab on the orsal aspect of the right foot, and blood blisters to the tip of her toes on the right due to trauma Neurologic: No aphasia. No facial droop. No change in mentation. No head injury. No headache. No paralysis. No paresthesia. Psychiatric: positive for depression. No anxiety. No mood swings. Endocrine: positive for abnormal blood sugars. positive for weight change. PHYSICAL EXAMINATION Gen: This is an 86-year-old female, sitting up in bed in no apparent distress. HEENT: Head is atraumatic, normocephalic. Pupils equal, round. Sclerae is anicteric, mucous membranes of the mouth are somewhat dry, there is minimal thrush. NECK: Supple. No JVD. No lymphadenopathy. No thyromegaly. LUNGS: Decreased breath sounds at the bases, few rhonchi, minimal expiratory wheezes, no chest wall tenderness, no intercostal retractions. HEART: first heart sound is depressed, second heart sound is normal, irregularly irregular, there is systolic ejection murmur 2/6 located at the left sternal border. ABDOMEN: morbidly obese abdomen, soft nontender nondistended, positive bowel sounds. EXTREMITIES: 3+ bilateral pitting edema to the lower extremities, erythema noted to bilateral lower legs, there is a scabbed blister to the right foot and there is erythema with tissue edema to the left thigh with drainage of sero-purulent material NEUROLOGICAL: Patient is awake, alert and oriented x3. Cranial nerves 2 through 12 are grossly intact significant weakness to both lower extremity his right more than left, with right foot drop. ASSESSMENT AND PLAN 1. Sepsis secondary to lower extremity cellulitis and ulcer to right dorsal foot and abscess of the left thigh. Continue vancomycin as well as cefepime, wait for the result of the cultures, computed tomography scan of the left lower extremity was reviewed, we will consult general surgery for possible abscess of the medial left thigh. 2. Lactic acidosis due to sepsis continue IV antibiotic. Repeat her lactic acid is back to normal 1.2. 3. Atrial fibrillation with rapid ventricular response. Currently controlled rate continue Toprol-XL 25 minute gram once every day, continue Eliquis 5 mg orally twice every day. 4. Anemia of chronic diseases. Monitor the patient's CBC over the next 24 hours. We'll check the patient iron panel and ferritin level along with B12 and folic acid. 5. History of multiple DVTs and PE on [place] anticoagulation. Continue eliquis 5 mg twice daily. Patient recently underwent [place] filter on November 2019 prior to laminectomy surgery. 6. Paroxysmal atrial fibrillation. Continue metoprolol 25 mg twice daily, eliquis 5 mg twice daily. 7. Valvular heart disease with severe tricuspid regurgitation, aortic stenosis with mean gradient of 36 mmHg, mild mitral regurgitation. 8. Severe pulmonary hypertension with RVSP 60 mmHg. continue patient on Toprol- XL 25 mg at bedtime, continue patient on Lasix 80 mg orally twice every day. 9. Hypertension and hypertensive cardiovascular disease. Continue patient on Toprol XL 25 mg orally once every day. 10. Hyperlipidemia. Continue atorvastatin 10 mg at bedtime. 11. Diabetes mellitus type 2. Continue patient on glipizide 5 mg orally twice every day, ,Jardiance 10 mg orally daily along with a slight scale insulin, hold metformin 48 hours post contrast. 12. Spinal stenosis status post laminectomy, stable. PT and OT evaluations once stabilized. 13. Recurrent depression. Continue patient on Effexor 75 minute gram orally once every day. 14. Gastroesophageal reflux disease and GI prophylaxis. Protonix 40 mg orally once every day. 15. DVT prophylaxis. Eliquis 5 mg orally twice every day. 16. Physical therapy evaluation for subacute rehabilitation. 17. 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 Objective - Vital Signs Vital signs: Vital Signs Temp 98.2 F 01/23/22 08:00 Pulse 84 01/23/22 08:00 Resp 18 01/23/22 08:00 BP 113/68 01/23/22 08:00 Pulse Ox 99 01/23/22 09:31 Intake & Output 01/22/22 01/23/22 01/23/22 18:59 06:59 18:59 Intake Total 354 850 Output Total 600 650 Balance -246 200 Intake: Intake, IV Titration 600 Amount Cefepime 2 gm In Sodium 100 Chloride 0.9% 100 ml @ 25 mls/hr IVPB Q12H [facility] Rx# :[id number] Vancomycin 2,250 mg In 500 Sodium Chloride 0.9% 500 ml 500 ml @ 167 mls/hr IVPB Q24H [facility] Rx#: [id number] Oral 354 250 Output: Urine 600 650 Other: Voiding Method External Catheter External Catheter # Voids 2 # Bowel Movements 1 - Labs CBC & Chem 7: 01/22/22 08:56 01/23/22 06:53 Labs: Abnormal Lab Results - Last 24 Hours (Table) 01/22/22 01/22/22 01/23/22 Range/Units 11:44 20:52 06:53 BUN 21 H (7-17) mg/dL Glucose 134 H (74-99) mg/dL POC Glucose (mg/dL) 117 H 156 H (75-99) mg/dL Calcium 8.1 L (8.4-10.2) mg/dL Albumin 2.7 L (3.5-5.0) g/dL 01/23/22 Range/Units 06:55 BUN (7-17) mg/dL Glucose (74-99) mg/dL POC Glucose (mg/dL) 130 H (75-99) mg/dL Calcium (8.4-10.2) mg/dL Albumin (3.5-5.0) g/dL Microbiology - Last 24 Hours (Table) 01/22/22 13:30 Gram Stain - Preliminary Leg - Left Wound Culture - Preliminary Presumptive Staph aureus Gram Neg Bacilli 01/22/22 13:30 Anaerobic Culture - Preliminary Leg - Left
[2022-01-23 11:54] LABS: Basophils # (A) 0.03 X 10*3/uL (0.00-0.10); Basophils % (A) 0.4 %; Eosinophils # (A) 0.12 X 10*3/uL (0.04-0.35); Eosinophils % (A) 1.7 %; HCT 36.7 % (37.2-46.3); HGB 10.3 g/dL (12.0-15.0); Immature Grans, Automated 1.3 %; Lymphocytes # (A) 1.23 X 10*3/uL (0.90-5.00); Lymphocytes % (A) 17.1 %; MCH 23.1 pg (27.0-32.0); MCHC 28.1 g/dL (32.0-37.0); MCV 82.3 fL (80.0-97.0); Mean Platelet Volume 10.3 fL (9.5-12.2); Monocytes % (A) 8.4 %; NRBC Per 100 WBC 0 /100 WBCS (0.0-0.0); Neutrophils # (A) 5.11 X 10*3/uL (1.80-7.70); Neutrophils % (A) 71.1 %; Platelet Count 146 X 10*3/uL (140-440); RBC 4.46 X 10*6/uL (4.10-5.20); RDW 21.2 % (11.5-14.5); WBC 7.18 X 10*3/uL (4.50-10.00)
--- NOTE | 2022-01-23 13:03 | P.GSCN ---
History of Present Illness Consult date: 01/23/22 Reason for Consult: Left thigh abscess and cellulitis, diabetes mellitus type 2, morbid obesity and chronic edema of the lower extremities History of present illness: Patient is an 86-year-old lady who presents to [facility] 01/22/2022 with around 24 hours of bloody to purulent drainage from the left thigh abscess, tachycardia and hypotension noted on a recent primary care op this visit. She tells me that she's had some sort of not to lump on her left posterior medial thigh for several years. She recently had an ultrasound was told there was no evidence of blood clot there are but shortly afterwards the area got black and blue and around 24 hours later she had some bloody to purulent drainage from the area. She denies any known and antecedent injury. She is maintained on Ellik was for permanent atrial fibrillation and previous DVT and pulmonary embolus some years ago. She is able to get around with a walker, has what appears to be chronic, moderate to severe lymphedema and of the lower extremities bilaterally. She also has a history of diabetes mellitus type 2. Laboratory studies on presentation in the ER were significant for lactic acidosis at around 3 which resolved with hydration and antibiotics. A computed tomography scan of the left lower extremity showed incomplete visualization of a superficial fluid collection over the area of concern. A CT angiogram over the chest was obtained to rule out recurrent PE. Images and report were reviewed revealing the esophagus packed with food debris of what appears to be a moderately sized hiatal hernia, I can't ascertain as to sliding or paraesophageal nature by the images. There was reflux of contrast in the liver and changes the heart consistent with right-sided heart failure. She did show atrial fibrillation with rapid ventricular response on initial presentation that has settled a bit overnight. Patient denies fever, chills, chest pain or new problems with shortness of breath. She did have problems with a persistent cough for a few weeks and has been prescribed Tessalon Perles on an outpatient basis. She recalls having undergone EGD with Dr. Klein around 2 years ago and recalls no specific abnormality noted. Today she's had problems with regurgitating her hospital food, and general she tells me she doesn't have pr oblems with regurgitation, nausea, early satiety or abdominal pains. Review of Systems All systems: negative - Constitutional Reports as per HPI Past Medical History Past Medical History: Blood Disorder, Diabetes Mellitus, Deep Vein Thrombosis (DVT), GERD/Reflux, Hyperlipidemia, Hypertension, Osteoarthritis (OA), Pneumonia, Pulmonary Embolus (PE), Renal Disease Additional Past Medical History / Comment(s): Hx of PE & DVT, mass on right kidney, cellulitis BLE, falls at home, spinal stenosis status post laminectomy. lt leg gives out wears brace History of Any Multi-Drug Resistant Organisms: None Reported Past Surgical History: Back Surgery, Breast Surgery, Cholecystectomy, Joint Replacement, Orthopedic Surgery Additional Past Surgical History / Comment(s): thelma knee replac; L shoulder replac.; carpel tunnel vaginal duct cyst; benign breast surg; cataracts; retinal repair left eye. BAck surgery, hernia repair Past Anesthesia/Blood Transfusion Reactions: No Reported Reaction Past Psychological History: Depression Smoking Status: Never smoker Past Alcohol Use History: None Reported Past Drug Use History: None Reported - Past Family History Father Family Medical History: Deep Vein Thrombosis (DVT) Son(s) Family Medical History: Deep Vein Thrombosis (DVT) Mother Family Medical History: Cancer Additional Family Medical History / Comment(s): Mother had cancer in her back. Daughter(s) Family Medical History: Blood Disorder Additional Family Medical History / Comment(s): Daughter has MTHFR factor and pt's grandson has lyme factor V and grand daughter has MTHFR. Medications and Allergies Home Medications Medication Instructions Recorded Confirmed Type Simvastatin [Zocor] 10 mg PO HS 08/25/17 01/21/22 History glipiZIDE [Glucotrol] 5 mg PO BID 08/25/17 01/21/22 History metFORMIN HCL [Glucophage] 1,000 mg PO BID 08/25/17 01/21/22 History Omeprazole [PriLOSEC] 20 mg PO DAILY 08/19/19 01/21/22 History Potassium Chloride [Klor-Con 20] 20 meq PO BID 08/19/19 01/21/22 History Apixaban [Eliquis] 5 mg PO BID 12/13/19 01/21/22 History Dulaglutide [Trulicity] 0.75 mg SQ TH 07/01/21 01/21/22 History Furosemide [Lasix] 80 mg PO BID 07/01/21 01/21/22 History Metoprolol Tartrate [Lopressor] 25 mg PO BID 07/01/21 01/21/22 History Ammonium Lactate Cream [Lac-Hydrin 1 applic TOPICAL BID 01/21/22 01/21/22 History 12% Cream] Cephalexin [Keflex] 500 mg PO TID 01/21/22 01/21/22 History Empagliflozin [Jardiance] 10 mg PO DAILY 01/21/22 01/21/22 History INSULIN ASPART (NovoLOG) [NovoLOG See Protocol SQ ACHS 01/21/22 01/21/22 History (formulary)] Nystatin/Triamcin 1 applic TOPICAL BID 01/21/22 01/21/22 History [Nystatin-Triamcinolone] SILVER sulfADIAZINE Cream 1 applic TOPICAL DAILY 01/21/22 01/21/22 History [Silvadene 1% Cream] Venlafaxine HCl [Effexor XR] 75 mg PO DAILY 01/21/22 01/21/22 History Allergies Allergy/AdvReac Type Severity Reaction Status Date / Time Penicillins Allergy Rash/Hives Verified 01/21/22 16:20 azithromycin AdvReac Dyspnea & Verified 01/21/22 16:20 nausea ciprofloxacin [From Cipro] AdvReac Dyspnea & Verified 01/21/22 16:20 nausea Surgical - Exam Osteopathic Statement: *. No significant issues noted on an osteopathic structural exam other than those noted in the History and Physical/Consult. Vital Signs Temp Pulse Resp BP Pulse Ox 97.1 F L 113 H 18 117/87 94 L 01/21/22 13:38 01/21/22 13:38 01/21/22 13:38 01/21/22 13:38 01/21/22 13:38 - General no distress, obese - Eyes PERRL - ENT normal pinna, normal nares, no congestion - Neck no masses, trachea midline - Respiratory normal expansion, normal respiratory effort, clear to auscultation - Cardiovascular Rhythm: irregularly irregular - Abdomen Abdomen is soft, nontender to palpation, no guarding rebound or distention. Abdomen: soft, non tender - Neurologic normal coordination, normal sensation - Musculoskeletal There is 3+ nonpitting edema of the lower extremities bilaterally and changes consistent with chronic lymphedema. Not much in the way of hemosiderosis. Distal lower extremity show mild tenderness to palpation which the patient tells me is chronic. There are cellulitic changes around the left medial and posterior thigh and around the 2-3 cm of peripheral induration surrounding a 2 cm or so spontaneously drained abscess. Area was investigated bluntly revealing about perhaps 2-3 cm underlying fluid cavity with some purulent debris expressed. No active ongoing bleeding. Area is mildly tender to palpation. No soft tissue crepitance. No proximal or distal tenderness. No changes of lymphangiitis seen. - Psychiatric oriented to time, oriented to person, oriented to place Results - Labs 01/23/22 06:53 01/23/22 06:53 Abnormal Lab Results - Last 24 Hours (Table) 01/22/22 01/23/22 01/23/22 Range/Units 20:52 06:53 06:53 Hgb 10.3 L (12.0-15.0) g/dL Hct 36.7 L (37.2-46.3) % MCH 23.1 L (27.0-32.0) pg MCHC 28.1 L (32.0-37.0) g/dL RDW 21.2 H (11.5-14.5) % Immature Gran # 0.09 H (0.00-0.04) X 10*3/uL BUN 21 H (7-17) mg/dL Glucose 134 H (74-99) mg/dL POC Glucose (mg/dL) 156 H (75-99) mg/dL Calcium 8.1 L (8.4-10.2) mg/dL Albumin 2.7 L (3.5-5.0) g/dL 01/23/22 01/23/22 Range/Units 06:55 11:25 Hgb (12.0-15.0) g/dL Hct (37.2-46.3) % MCH (27.0-32.0) pg MCHC (32.0-37.0) g/dL RDW (11.5-14.5) % Immature Gran # (0.00-0.04) X 10*3/uL BUN (7-17) mg/dL Glucose (74-99) mg/dL POC Glucose (mg/dL) 130 H 178 H (75-99) mg/dL Calcium (8.4-10.2) mg/dL Albumin (3.5-5.0) g/dL Microbiology - Last 24 Hours (Table) 01/22/22 13:30 Gram Stain - Preliminary Leg - Left Wound Culture - Preliminary Presumptive Staph aureus Gram Neg Bacilli 01/22/22 13:30 Anaerobic Culture - Preliminary Leg - Left Diabetes panel 01/23/22 Range/Units 06:53 Sodium 137 (137-145) mmol/L Potassium 4.6 (3.5-5.1) mmol/L Chloride 106 (98-107) mmol/L Carbon Dioxide 27 (22-30) mmol/L BUN 21 H (7-17) mg/dL Creatinine 0.85 (0.52-1.04) mg/dL Glucose 134 H (74-99) mg/dL Calcium 8.1 L (8.4-10.2) mg/dL AST 18 (14-36) U/L ALT 11 (4-34) U/L Alkaline Phosphatase 89 (38-126) U/L Total Protein 6.5 (6.3-8.2) g/dL Albumin 2.7 L (3.5-5.0) g/dL Calcium panel 01/23/22 Range/Units 06:53 Calcium 8.1 L (8.4-10.2) mg/dL Albumin 2.7 L (3.5-5.0) g/dL Pituitary panel 01/23/22 Range/Units 06:53 Sodium 137 (137-145) mmol/L Potassium 4.6 (3.5-5.1) mmol/L Chloride 106 (98-107) mmol/L Carbon Dioxide 27 (22-30) mmol/L BUN 21 H (7-17) mg/dL Creatinine 0.85 (0.52-1.04) mg/dL Glucose 134 H (74-99) mg/dL Calcium 8.1 L (8.4-10.2) mg/dL Adrenal panel 01/23/22 Range/Units 06:53 Sodium 137 (137-145) mmol/L Potassium 4.6 (3.5-5.1) mmol/L Chloride 106 (98-107) mmol/L Carbon Dioxide 27 (22-30) mmol/L BUN 21 H (7-17) mg/dL Creatinine 0.85 (0.52-1.04) mg/dL Glucose 134 H (74-99) mg/dL Calcium 8.1 L (8.4-10.2) mg/dL Total Bilirubin 0.5 (0.2-1.3) mg/dL AST 18 (14-36) U/L ALT 11 (4-34) U/L Alkaline Phosphatase 89 (38-126) U/L Total Protein 6.5 (6.3-8.2) g/dL Albumin 2.7 L (3.5-5.0) g/dL - Imaging CT scan - chest: report reviewed, image reviewed Assessment and Plan Assessment: 86-year-old lady with spontaneously drained abscess of the left posterior medial thigh. Medical history would be most suggestive of a infected likely posttraumatic hematoma given oral anticoagulation with Eliquis and frequent falls at home. Adjacent cellulitis without significant underlying fluid cavity on blunt exploration at bedside. Attendance history of diabetes mellitus, morbid obesity. Lactic acidosis on presentation resolved with hydration and antibiotics. Review of imaging shows what may be a significant achalasia or hiatal hernia with degree of obstruction, reported outpatient issues with chronic cough. Regurgitation at bedside noted today, at risk for aspiration. Suspected history of chronic congestive heart failure and a lower extremity edema and lymphedema. Remote history of suspected DVT and pulmonary embolus, long-term atrial fibrillation. Plan: Patient has a variety of antibiotic sensitivities and ALLERGIES. She is presently maintained on cefepime, initial cultures of the abscess show staphylococcus and gram-negative bacilli, final speciation and sensitivity pending. As the abscess has spontaneously drained I don't see indication for further issue mentation or surgery presently. We'll ask for twice daily and as needed dressing changes with topical bacitracin or meta-honey. She may shower and get the area wet without concern. A warm compress, 15 minutes on and 15 minutes off might be of benefit as well. Will follow. Given her CT angiogram of the chest findings and bedside regurgitation I would drop her down to clear liquids in terms of her dietary orders for now. I'm going to order a contrasted esophagram to assess for achalasia or obstruction at the GE junction. Further medical management per admitting service. Time with Patient: Greater than 30
[2022-01-23] MEDS: BACITRACIN ZINC 500 UNIT/GM OINT 28.4 GM TUBE TOPICAL SCH (14:20)
--- NOTE | 2022-01-23 15:00 | P.PN ---
Subjective Progress Note Date: 01/23/22 The patient was interviewed and examined lying comfortably in bed. She states she is feeling better in terms of her breathing. No chest pain or chest pressure. No heart racing or fluttering. GENERAL: Well-appearing, obese female in no acute distress. NECK: Supple without JVD or thyromegaly. LUNGS: Breath sounds dimished to auscultation bilaterally. Respiration equal and unlabored. No wheezes, rales or rhonchi. HEART: Irregular rate and rhythm. Systolic murmur. No rubs or gallops. S1 and S2 heard. EXTREMITIES: Limited range of motion. Moderate lower extremity edema with bilateral cellulitis. Right lower extremity and foot drop boot. VITALS: Blood pressure 113/68, pulse 84, respiratory rate 18, temp 98.2F, SpO2 98% on 3 L nasal cannula TELEMETRY: Atrial fibrillation, rate controlled LABS: WBC 7.1, hemoglobin 10.3, hematocrit 30 6., platelet 146, potassium 4.6, sodium 137, BUN 21, creatinine 0.85, AST 18, ALT 11 IMPRESSION: Persistent atrial fibrillation, on Eliquis, rate controlled Hypotension, improved Bilateral lower extremity cellulitis Dyslipidemia Morbid obesity Diabetes mellitus Mild coronary artery disease Aortic stenosis PLAN: No change in medication regimen Continue anticoagulation Continue metoprolol for rate control Further recommendations to be based on clinical course I am dictating on behalf of Dr Lefty Kingston's history/physical and assessment/plan. Objective - Vital Signs Vital signs: Vital Signs Temp 98.2 F 01/23/22 08:00 Pulse 84 01/23/22 08:00 Resp 18 01/23/22 08:00 BP 113/68 01/23/22 08:00 Pulse Ox 99 01/23/22 09:31 Intake & Output 01/22/22 01/23/22 01/23/22 18:59 06:59 18:59 Intake Total 354 850 Output Total 600 650 Balance -246 200 Intake: Intake, IV Titration 600 Amount Cefepime 2 gm In Sodium 100 Chloride 0.9% 100 ml @ 25 mls/hr IVPB Q12H [facility] Rx# :[id number] Vancomycin 2,250 mg In 500 Sodium Chloride 0.9% 500 ml 500 ml @ 167 mls/hr IVPB Q24H [facility] Rx#: [id number] Oral 354 250 Output: Urine 600 650 Other: Voiding Method External Catheter External Catheter # Voids 2 # Bowel Movements 1 - Labs CBC & Chem 7: 01/23/22 06:53 01/23/22 06:53 Labs: Abnormal Lab Results - Last 24 Hours (Table) 01/22/22 01/22/22 01/23/22 Range/Units 11:44 20:52 06:53 BUN 21 H (7-17) mg/dL Glucose 134 H (74-99) mg/dL POC Glucose (mg/dL) 117 H 156 H (75-99) mg/dL Calcium 8.1 L (8.4-10.2) mg/dL Albumin 2.7 L (3.5-5.0) g/dL 01/23/22 01/23/22 Range/Units 06:55 11:25 BUN (7-17) mg/dL Glucose (74-99) mg/dL POC Glucose (mg/dL) 130 H 178 H (75-99) mg/dL Calcium (8.4-10.2) mg/dL Albumin (3.5-5.0) g/dL Microbiology - Last 24 Hours (Table) 01/22/22 13:30 Gram Stain - Preliminary Leg - Left Wound Culture - Preliminary Presumptive Staph aureus Gram Neg Bacilli 01/22/22 13:30 Anaerobic Culture - Preliminary Leg - Left
[2022-01-23 16:25] LABS: Glucose,Whole Blood 75 mg/dL (75-99)
[2022-01-23 21:48] LABS: Glucose,Whole Blood 143 mg/dL (75-99)
[2022-01-23] MEDS: ATORVASTATIN 10 MG TAB PO SCH (22:25)
--- NOTE | 2022-01-24 00:39 | P.PN ---
Subjective Progress Note Date: 01/23/22 Principal diagnosis: Left thigh abscess and cellulitis Patient is 86-year-old female with multiple comorbidities in this patient with left medial thigh pain Swelling and drainage concerning for underlying abscess and cellulitis. CT of the left thigh did shows possible abscess On today's evaluation that is 01/23/2022, the patient denies having any fever or any chills, the patient denies having any chest pain shortness of breath or cough overall pain and discomfort to the left thigh has slightly decreased and no diarrhea Objective - Vital Signs Vital signs: Vital Signs Temp 98.2 F 01/23/22 08:00 Pulse 84 01/23/22 08:00 Resp 18 01/23/22 08:00 BP 113/68 01/23/22 08:00 Pulse Ox 99 01/23/22 09:31 Intake & Output 01/22/22 01/23/22 01/23/22 18:59 06:59 18:59 Intake Total 354 850 Output Total 600 650 Balance -246 200 Intake: Intake, IV Titration 600 Amount Cefepime 2 gm In Sodium 100 Chloride 0.9% 100 ml @ 25 mls/hr IVPB Q12H [facility] Rx# :[id number] Vancomycin 2,250 mg In 500 Sodium Chloride 0.9% 500 ml 500 ml @ 167 mls/hr IVPB Q24H [facility] Rx#: [id number] Oral 354 250 Output: Urine 600 650 Other: Voiding Method External Catheter External Catheter # Voids 2 # Bowel Movements 1 - Exam GENERAL DESCRIPTION: An elderly female lying in bed in no distress RESPIRATORY SYSTEM: Unlabored breathing , decreased breath sounds at bases HEART: S1 S2 regular rate and rhythm , ABDOMEN: Soft , no tenderness EXTREMITIES: Left medial thigh is currently dressed no drainage on the dressing - Labs CBC & Chem 7: 01/23/22 06:53 01/23/22 06:53 Labs: Abnormal Lab Results - Last 24 Hours (Table) 01/22/22 01/23/22 01/23/22 Range/Units 20:52 06:53 06:53 Hgb 10.3 L (12.0-15.0) g/dL Hct 36.7 L (37.2-46.3) % MCH 23.1 L (27.0-32.0) pg MCHC 28.1 L (32.0-37.0) g/dL RDW 21.2 H (11.5-14.5) % Immature Gran # 0.09 H (0.00-0.04) X 10*3/uL BUN 21 H (7-17) mg/dL Glucose 134 H (74-99) mg/dL POC Glucose (mg/dL) 156 H (75-99) mg/dL Calcium 8.1 L (8.4-10.2) mg/dL Albumin 2.7 L (3.5-5.0) g/dL 01/23/22 01/23/22 Range/Units 06:55 11:25 Hgb (12.0-15.0) g/dL Hct (37.2-46.3) % MCH (27.0-32.0) pg MCHC (32.0-37.0) g/dL RDW (11.5-14.5) % Immature Gran # (0.00-0.04) X 10*3/uL BUN (7-17) mg/dL Glucose (74-99) mg/dL POC Glucose (mg/dL) 130 H 178 H (75-99) mg/dL Calcium (8.4-10.2) mg/dL Albumin (3.5-5.0) g/dL Microbiology - Last 24 Hours (Table) 01/22/22 13:30 Gram Stain - Preliminary Leg - Left Wound Culture - Preliminary Presumptive Staph aureus Gram Neg Bacilli 01/22/22 13:30 Anaerobic Culture - Preliminary Leg - Left Assessment and Plan (1) Cellulitis of left leg Current Visit: Yes Status: Acute Code(s): L03.116 - CELLULITIS OF LEFT LOWER LIMB SNOMED Code(s): 438730933 Plan: 1patient with left medial thigh area pain swelling redness and some drainage in this patient did have an area of induration and concerning for possible underlying abscess will need to cover for both gram-positive as well as gram- negative pathogen in this patient recently completed course of oral Keflex. 2 CT of the left medial thigh area did shows possible abscess and Gen. surgery has evaluated the patient recommending no further drainage 3 wound culture with MSSA and gram-negative patient to continue with cefepime will discontinue the vancomycin Time with Patient: Less than 30
[2022-01-24] MEDS: CEFEPIME 2 GM in SODIUM CHLORIDE 0.9% 100 ML IVPB SCH ×2 (04:47→15:36)
[2022-01-24 06:43] LABS: ALT 9 U/L (4-34); AST 17 U/L (14-36); African American GFR (CKD) 84 (>60 ml/min/1.73 sqM); Albumin 2.6 g/dL (3.5-5.0); Albumin/Globulin Ratio 0.7; Alkaline Phosphatase 78 U/L (38-126); Anion Gap 5 mmol/L; Blood Urea Nitrogen 17 mg/dL (7-17); Calcium 7.9 mg/dL (8.4-10.2); Carbon Dioxide 28 mmol/L (22-30); Chloride 103 mmol/L (98-107); Globulin 3.5 g/dL; Glucose 74 mg/dL (74-99); Non-African American GFR(CKD) 73 (>60 ml/min/1.73 sqM); Potassium 3.8 mmol/L (3.5-5.1); Sodium 136 mmol/L (137-145); Total Bilirubin 0.6 mg/dL (0.2-1.3); Total Protein 6.1 g/dL (6.3-8.2)
[2022-01-24 07:15] LABS: Glucose,Whole Blood 74 mg/dL (75-99)
[2022-01-24] MEDS: INSULIN ASPART (NovoLOG) 100 UNIT/ML VIAL SQ SCH ×4 (07:31→20:42)
[2022-01-24] MEDS: NON FORMULARY DRUG (Empagliflozin [Jardiance] 10 MG Tablet) PO SCH (07:42)
[2022-01-24] MEDS: NYSTATIN 100,000UNIT/GM CREAM 30 GM TUBE TOPICAL SCH ×2 (07:49→21:40)
[2022-01-24] MEDS: AMMONIUM LACTATE 12% CREAM 140 GM TUBE TOPICAL SCH ×2 (07:50→21:39)
[2022-01-24] MEDS: FUROSEMIDE 80 MG TAB PO SCH ×2 (07:50→21:39)
[2022-01-24] MEDS: METOPROLOL TARTRATE 25 MG TAB PO SCH ×2 (07:50→21:39)
[2022-01-24] MEDS: glipiZIDE 5 MG TAB PO SCH ×2 (07:50→21:54)
[2022-01-24] MEDS: VENLAFAXINE HCL ER 75 MG CAP PO SCH (07:50)
[2022-01-24] MEDS: APIXABAN 5 MG TAB PO SCH ×2 (07:50→21:39)
[2022-01-24] MEDS: BACITRACIN ZINC 500 UNIT/GM OINT 28.4 GM TUBE TOPICAL SCH ×2 (07:50→21:40)
[2022-01-24] MEDS: POTASSIUM CHLORIDE ER 20 MEQ TAB.ER PO SCH ×2 (07:51→21:39)
[2022-01-24] MEDS: PANTOPRAZOLE 40 MG TABLET PO SCH (07:51)
[2022-01-24 08:40] LABS: Basophils # (A) 0.03 X 10*3/uL (0.00-0.10); Basophils % (A) 0.4 %; Eosinophils # (A) 0.12 X 10*3/uL (0.04-0.35); Eosinophils % (A) 1.8 %; HCT 35.4 % (37.2-46.3); HGB 10.1 g/dL (12.0-15.0); Immature Grans, Automated 0.9 %; Lymphocytes # (A) 1.33 X 10*3/uL (0.90-5.00); Lymphocytes % (A) 19.7 %; MCH 23.2 pg (27.0-32.0); MCHC 28.5 g/dL (32.0-37.0); MCV 81.2 fL (80.0-97.0); Monocytes # (A) 0.73 X 10*3/uL (0.20-1.00); Monocytes % (A) 10.8 %; NRBC Per 100 WBC 0 /100 WBCS (0.0-0.0); Neutrophils # (A) 4.48 X 10*3/uL (1.80-7.70); Neutrophils % (A) 66.4 %; Platelet Count 139 X 10*3/uL (140-440); RBC 4.36 X 10*6/uL (4.10-5.20); RDW 20.7 % (11.5-14.5); WBC 6.75 X 10*3/uL (4.50-10.00)
--- NOTE | 2022-01-24 09:41 | P.PN ---
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, morbid obesity, diabetes mellitus type 2, hypertension, hyperlipidemia, history of spinal stenosis status post surgery in [place], history of small bowel obstruction secondary to incarcerated umbilical hernia status post repair of the hernia with resolution of the bowel obstruction, history of atrial fibrillation, history of chronic diastolic heart failure with significant for hypertension and significant venous hypertension both lower extremities and significant edema, patient was seen in the office about a week ago when she came down with a blister to the dorsal acid of the right foot with significant venous hypertension and significant edema both lower extremities, patient was having hard time taking diuretics because of the urinary incontinence and she is not able to make it to the bathroom on time, at that time she was placed on Lasix 80 mg orally twice every day Tuesday and Tuesday and 80 mg in the morning and 40 mg the afternoon on Tuesday and Tuesday she wason oral antibiotic in the form of Keflex 500 mg orally 3 times every day for 10 days, she was supposed to follow[facility]up with [facility] a week later when she came to the office yesterday with significant erythema to the right lower extremity and the left lower extremity as well as significant left thigh erythema with significant tissue swelling and a necrotic area that is draining seropurulent purulent material at that time she was ready to go to the emergency perforated evaluation and possible sepsis she was seen in emergency department and she was found to have an elevated lactic acid 3.7 she was somewhat hypotensive, initially she was in atrial fibrillation with rapid ventricular response, she was placed on her Toprol 25 mg at bedtime, and she was started on IV fluid the form of normal saline at 500 mL 1 and her blood pressure normalizes, her lactic acid normalizes, she was also placed on IV antibiotic in the form of vancomycin as well as meropenem, and will cultures aerobic and anaerobic were obtained as well as blood cultures, infectious disease consultation as well as cardiology consultation was obtained. 01/23: Patient is sitting up in bed is feeling a bit better today, she denies any chest pain, she continues to have some dry cough, she was started yesterday on Tessalon Perles as well as nebulized treatment, she is requiring 3 L nasal cannula, patient was seen in consultation by infectious disease, underwent computed tomography scan of the left lower extremity that showed evidence of possible abscess in the medial aspect of the left thigh we'll consult general surgery Dr. Guzman for evaluation, her antibiotic was switched to vancomycin and cefepime, cultures are still pending, follow-up with the patient very closely. 01/24: Patient's treadmill but in no apparent distress, she was seen yesterday in consultation by general surgery was recommended to continue the IV antibiotic at this point in time, her culture so far are MSSA gram-negative bacilli, she was taken off vancomycin and kept on cefepime plan for now, continue local care to the left medial posterior thigh, continue warm compresses, noted for any further surgical intervention at this time, there was some concern of possible esophag eal obstruction at the GE junction and the patient will have a contrasted esophagram for further evaluation of possible achalasia, patient does not appear to have any significant problem with eating, we'll continue to monitor the patient very closely, continue with physical therapy evaluation, likely the patient require subacute rehabilitation. REVIEW OF SYSTEMS Constitutional: Reports fever, Reports chills, no night sweats. positive for weight change. Reports weakness, Reports fatigue Reports lethargy. Reports daytime sleepiness. HEENT: No headache. No blurred vision or double vision, no loss of vision. No dizziness. No nasal drainage or congestion. No epistaxis. No sore throat, hard of hearing Lungs: positive for shortness of breath, positive for dry cough, no sputum production. positive for wheezing. Cardiovascular: No chest pain, positive for lower extremity edema, positive for palpitations, positive for paroxysmal nocturnal dyspnea. No orthopnea. No lightheadedness or dizziness. No syncopal episodes. Abdominal: No abdominal pain. No nausea, vomiting. No diarrhea. No constipation. No bloody or tarry stools. Reports loss of appetite. Genitourinary: No dysuria, increased frequency, urgency. No urinary retention. Musculoskeletal: No myalgias. Reports muscle weakness, Reports gait dysfunction, Reports falls. positive for back pain. No neck pain. Integumentary: Reports wound to the left high with significant tissue edema, rep orts lower extremity redness, there is denuded scab on the orsal aspect of the right foot, and blood blisters to the tip of her toes on the right due to trauma Neurologic: No aphasia. No facial droop. No change in mentation. No head injury. No headache. No paralysis. No paresthesia. Psychiatric: positive for depression. No anxiety. No mood swings. Endocrine: positive for abnormal blood sugars. positive for weight change. PHYSICAL EXAMINATION Gen: This is an 86-year-old female, sitting up in bed in no apparent distress. HEENT: Head is atraumatic, normocephalic. Pupils equal, round. Sclerae is anicteric, mucous membranes of the mouth are somewhat dry, there is minimal thrush. NECK: Supple. No JVD. No lymphadenopathy. No thyromegaly. LUNGS: Decreased breath sounds at the bases, few rhonchi, minimal expiratory wheezes, no chest wall tenderness, no intercostal retractions. HEART: first heart sound is depressed, second heart sound is normal, irregularly irregular, there is systolic ejection murmur 2/6 located at the left sternal border. ABDOMEN: morbidly obese abdomen, soft nontender nondistended, positive bowel sounds. EXTREMITIES: 3+ bilateral pitting edema to the lower extremities, erythema noted to bilateral lower legs, there is a scabbed blister to the right foot and there is erythema with tissue edema to the left thigh with drainage of sero-purulent material NEUROLOGICAL: Patient is awake, alert and oriented x3. Cranial nerves 2 through 12 are grossly intact significant weakness to both lower extremity his right m ore than left, with right foot drop. ASSESSMENT AND PLAN 1. Sepsis secondary to lower extremity cellulitis and ulcer to right dorsal foot and abscess of the left thigh. Continue cefepime, computed tomography scan of the left lower extremity was reviewed, culture so far showing MSSA and gram-negative bacilli we will continue with cephapirin for now, continue local care, general surgery consultation appreciated. 2. Lactic acidosis due to sepsis continue IV antibiotic. Repeat her lactic acid is back to normal 1.2. 3. Atrial fibrillation with rapid ventricular response. Currently controlled rate continue Toprol-XL 25 mg once every day, continue Eliquis 5 mg orally twice every day. 4. Anemia of chronic diseases. Monitor the patient's CBC over the next 24 hours. 5. History of multiple DVTs and PE on usp anticoagulation. Continue eliquis 5 mg twice daily. Patient recently underwent Malik filter on November 2019 prior to laminectomy surgery. 6. Paroxysmal atrial fibrillation. Continue metoprolol 25 mg twice daily, eliquis 5 mg twice daily. 7. Valvular heart disease with severe tricuspid regurgitation, aortic stenosis with mean gradient of 36 mmHg, mild mitral regurgitation. 8. Severe pulmonary hypertension with RVSP 60 mmHg. continue patient on Toprol- XL 25 mg at bedtime, continue patient on Lasix 80 mg orally twice every day. 9. Hypertension and hypertensive cardiovascular disease. Continue patient on Toprol XL 25 mg orally once every day. 10. Hyperlipidemia. Continue atorvastatin 10 mg at bedtime. 11. Diabetes mellitus type 2. Continue patient on glipizide 5 mg orally twice every day, ,Jardiance 10 mg orally daily along with a slight scale insulin. 12. Spinal stenosis status post laminectomy, stable. PT and OT evaluations once stabilized. 13. Recurrent depression. Continue patient on Effexor 75 mg orally once every day. 14. Gastroesophageal reflux disease and possible esophageal obstruction at the GE junction rule out achalasia. Continue Protonix 40 mg every day, patient scheduled to go for esophagram 15. DVT prophylaxis. Eliquis 5 mg orally twice every day. 16. Physical therapy evaluation for subacute rehabilitation. 17. hotel maintenance worker consultation. Objective - Vital Signs Vital signs: Vital Signs Temp 98.4 F 01/24/22 08:00 Pulse 55 L 01/24/22 08:00 Resp 18 01/24/22 08:00 BP 98/64 01/24/22 08:00 Pulse Ox 99 01/24/22 08:00 Intake & Output 01/23/22 01/24/22 01/24/22 18:59 06:59 18:59 Output Total 1600 400 Balance -1600 -400 Output: Urine 1600 400 Other: Voiding Method External Catheter - Labs CBC & Chem 7: 01/24/22 06:04 01/24/22 06:04 Labs: Abnormal Lab Results - Last 24 Hours (Table) 01/23/22 01/23/22 01/23/22 Range/Units 06:53 11:25 21:45 Hgb 10.3 L (12.0-15.0) g/dL Hct 36.7 L (37.2-46.3) % MCH 23.1 L (27.0-32.0) pg MCHC 28.1 L (32.0-37.0) g/dL RDW 21.2 H (11.5-14.5) % Plt Count (140-440) X 10*3/uL Immature Gran # 0.09 H (0.00-0.04) X 10*3/uL Sodium (137-145) mmol/L POC Glucose (mg/dL) 178 H 143 H (75-99) mg/dL Calcium (8.4-10.2) mg/dL Total Protein (6.3-8.2) g/dL Albumin (3.5-5.0) g/dL 01/24/22 01/24/22 01/24/22 Range/Units 06:04 06:04 07:13 Hgb 10.1 L (12.0-15.0) g/dL Hct 35.4 L (37.2-46.3) % MCH 23.2 L (27.0-32.0) pg MCHC 28.5 L (32.0-37.0) g/dL RDW 20.7 H (11.5-14.5) % Plt Count 139 L (140-440) X 10*3/uL Immature Gran # 0.06 H (0.00-0.04) X 10*3/uL Sodium 136 L (137-145) mmol/L POC Glucose (mg/dL) 74 L (75-99) mg/dL Calcium 7.9 L (8.4-10.2) mg/dL Total Protein 6.1 L (6.3-8.2) g/dL Albumin 2.6 L (3.5-5.0) g/dL Microbiology - Last 24 Hours (Table) 01/22/22 13:30 Gram Stain - Preliminary Leg - Left Wound Culture - Preliminary Presumptive Staph aureus Gram Neg Bacilli
[2022-01-24 11:28] LABS: Glucose,Whole Blood 134 mg/dL (75-99)
--- NOTE | 2022-01-24 11:50 | P.PN ---
Subjective Progress Note Date: 01/24/22 Principal diagnosis: Cellulitis and abscess of the left medial thigh, congestive heart failure and lower extremity lymphedema, regurgitation and possible distal esophageal obstruction on CT, morbid obesity, diabetes mellitus type 2, microcytic hypochromic anemia Patient seen and examined at bedside. On the wall she tells me she is feeling better today than yesterday. Pain at the left thigh is him improving, drainage is starting to taper. She denies fever or chills. She is presently on clear liquids which she's been tolerating, no repeat issues with regurgitation or emes is. She denies abdominal pain. No bowel movement today, reportedly voiding without issue. Laboratory studies from this morning show a normal white blood cell count at 6.75, persistent anemia with a hemoglobin of 10.1 with microcytosis, hyperchromasia and elevated RDW on differential. Platelet count was slightly low at 139 as well. Electrolyte analysis was essentially normal on all counts with a trivially low sodium at 136 and a low albumin at 2.6. She remains on IV cefepime. Contrasted esophagram pending for tomorrow. Objective - Vital Signs Vital signs: Vital Signs Temp 98.4 F 01/24/22 08:00 Pulse 55 L 01/24/22 08:00 Resp 18 01/24/22 08:00 BP 98/64 01/24/22 08:00 Pulse Ox 99 01/24/22 08:00 Intake & Output 01/23/22 01/24/22 01/24/22 18:59 06:59 18:59 Output Total 1600 400 Balance -1600 -400 Output: Urine 1600 400 Other: Voiding Method External Catheter - Constitutional General appearance: Present: no acute distress, obese - EENT Eyes: Present: PERRLA ENT: Present: hearing grossly normal - Respiratory Respiratory: bilateral: CTA - Cardiovascular Rhythm: irregularly irregular - Gastrointestinal Gastrointestinal Comment(s): Abdomen is soft, nontender to palpation, no guarding rebound or distention. - Neurologic Neurologic: Present: CNII-XII intact - Musculoskeletal Musculoskeletal Comment(s): Cellulitic changes of the left medial thigh improved, induration slightly improved as well. There is a central spontaneously drained abscess cavity with some slight underlying fatty necrosis. Minimal if any adjacent tenderness to palpation. Musculoskeletal: Present: strength equal bilaterally - Psychiatric Psychiatric: Present: A&O x's 3, appropriate affect, intact judgment & insight - Labs CBC & Chem 7: 01/24/22 06:04 01/24/22 06:04 Labs: Abnormal Lab Results - Last 24 Hours (Table) 01/23/22 01/23/22 01/24/22 Range/Units 06:53 21:45 06:04 Hgb 10.3 L (12.0-15.0) g/dL Hct 36.7 L (37.2-46.3) % MCH 23.1 L (27.0-32.0) pg MCHC 28.1 L (32.0-37.0) g/dL RDW 21.2 H (11.5-14.5) % Plt Count (140-440) X 10*3/uL Immature Gran # 0.09 H (0.00-0.04) X 10*3/uL Sodium 136 L (137-145) mmol/L POC Glucose (mg/dL) 143 H (75-99) mg/dL Calcium 7.9 L (8.4-10.2) mg/dL Total Protein 6.1 L (6.3-8.2) g/dL Albumin 2.6 L (3.5-5.0) g/dL 01/24/22 01/24/22 01/24/22 Range/Units 06:04 07:13 11:27 Hgb 10.1 L (12.0-15.0) g/dL Hct 35.4 L (37.2-46.3) % MCH 23.2 L (27.0-32.0) pg MCHC 28.5 L (32.0-37.0) g/dL RDW 20.7 H (11.5-14.5) % Plt Count 139 L (140-440) X 10*3/uL Immature Gran # 0.06 H (0.00-0.04) X 10*3/uL Sodium (137-145) mmol/L POC Glucose (mg/dL) 74 L 134 H (75-99) mg/dL Calcium (8.4-10.2) mg/dL Total Protein (6.3-8.2) g/dL Albumin (3.5-5.0) g/dL Microbiology - Last 24 Hours (Table) 01/22/22 13:30 Gram Stain - Preliminary Leg - Left Wound Culture - Preliminary Presumptive Staph aureus Gram Neg Bacilli Assessment and Plan Assessment: 1) 86-year-old lady with spontaneously drained abscess of the left posterior medial thigh. Medical history would be most suggestive of a infected posttraumatic hematoma given oral anticoagulation with Eliquis and frequent falls at home. Adjacent cellulitis without significant underlying fluid cavity on blunt exploration at bedside. Lactic acidosis on presentation resolved with hydration and antibiotics. Improving. 2) Review of imaging shows what may be a significant achalasia or hiatal hernia with degree of obstruction, reported outpatient issues with chronic cough. Regurgitation at bedside noted, at risk for aspiration. Attendance microcytic, hypochromic anemia. Rule out underlying GE junction neoplasia, erosive esophagitis or ulcer disease. 3) Suspected history of chronic congestive heart failure and a lower extremity edema and lymphedema. 4) Remote history of suspected DVT and pulmonary embolus, long-term atrial fibrillation. 5) Diabetes mellitus, morbid obesity. Plan: Continue with present antibiotics pending final culture speciation and sensitivity results. No need for additional drainage seen at present, abscess seems to have spontaneously drained on its own and is improving with present treatment. Clear liquids for now, we'll awaiting esophagogram tomorrow. I suspect that we'll need to get the patient to touch base with her senior environmental consultant, Dr. De La Cruz, to see about further investigating this potential lower esophageal obstruction and coexisting microcytic hypochromic anemia. Time with Patient: Less than 30
[2022-01-24] MEDS: BENZONATATE 100 MG CAP PO PRN ×2 (12:31→22:31)
[2022-01-24 16:27] LABS: Glucose,Whole Blood 139 mg/dL (75-99)
[2022-01-24] MEDS ORDERED: VANCOMYCIN IV PER PHARMACY 1 EACH MISC MISCELLANE PRN (16:46)
[2022-01-24] MEDS ORDERED: VANCOMYCIN 2,000 MG in SODIUM CHLORIDE 0.9% 500 ML 500 ML IVPB SCH (17:00)
--- NOTE | 2022-01-24 17:36 | P.PN ---
Subjective Progress Note Date: 01/24/22 Principal diagnosis: Left thigh abscess and cellulitis Patient is 86-year-old female with multiple comorbidities in this patient with left medial thigh pain Swelling and drainage concerning for underlying abscess and cellulitis. CT of the left thigh did shows possible abscess On today's evaluation that is 01/24/2022, the patient remains to be afebrile, the patient denies having any chest pain shortness of breath or cough, the patient overall pain and discomfort to the left thigh has slightly decreased the patient denies having abdominal pain and no diarrhea Objective - Vital Signs Vital signs: Vital Signs Temp 98.3 F 01/24/22 14:00 Pulse 77 01/24/22 14:00 Resp 18 01/24/22 08:00 BP 102/66 01/24/22 14:00 Pulse Ox 95 01/24/22 14:00 Intake & Output 01/23/22 01/24/22 01/24/22 18:59 06:59 18:59 Output Total 7679 401 8336 Balance -1600 -400 -1000 Output: Urine 7387 993 9282 Other: Voiding Method External Catheter - Exam GENERAL DESCRIPTION: An elderly female lying in bed in no distress RESPIRATORY SYSTEM: Unlabored breathing , decreased breath sounds at bases HEART: S1 S2 regular rate and rhythm , ABDOMEN: Soft , no tenderness EXTREMITIES: Left medial thigh with an area of induration and swelling and redness and minimal drainage - Labs CBC & Chem 7: 01/24/22 06:04 01/24/22 06:04 Labs: Abnormal Lab Results - Last 24 Hours (Table) 01/23/22 01/24/22 01/24/22 Range/Units 21:45 06:04 06:04 Hgb 10.1 L (12.0-15.0) g/dL Hct 35.4 L (37.2-46.3) % MCH 23.2 L (27.0-32.0) pg MCHC 28.5 L (32.0-37.0) g/dL RDW 20.7 H (11.5-14.5) % Plt Count 139 L (140-440) X 10*3/uL Immature Gran # 0.06 H (0.00-0.04) X 10*3/uL Sodium 136 L (137-145) mmol/L POC Glucose (mg/dL) 143 H (75-99) mg/dL Calcium 7.9 L (8.4-10.2) mg/dL Total Protein 6.1 L (6.3-8.2) g/dL Albumin 2.6 L (3.5-5.0) g/dL 01/24/22 01/24/22 01/24/22 Range/Units 07:13 11:27 16:26 Hgb (12.0-15.0) g/dL Hct (37.2-46.3) % MCH (27.0-32.0) pg MCHC (32.0-37.0) g/dL RDW (11.5-14.5) % Plt Count (140-440) X 10*3/uL Immature Gran # (0.00-0.04) X 10*3/uL Sodium (137-145) mmol/L POC Glucose (mg/dL) 74 L 134 H 139 H (75-99) mg/dL Calcium (8.4-10.2) mg/dL Total Protein (6.3-8.2) g/dL Albumin (3.5-5.0) g/dL Microbiology - Last 24 Hours (Table) 01/22/22 13:30 Anaerobic Culture - Preliminary Leg - Left 01/22/22 13:30 Gram Stain - Final Leg - Left Wound Culture - Final Methicillin resist S. aureus Enterobacter cloacae Assessment and Plan (1) Cellulitis of left leg Current Visit: Yes Status: Acute Code(s): L03.116 - CELLULITIS OF LEFT LOWER LIMB SNOMED Code(s): 018861485 Plan: 1patient with left medial thigh area pain swelling redness and some drainage in this patient did have an area of induration and concerning for possible underlying abscess will need to cover for both gram-positive as well as gram- negative pathogen in this patient recently completed course of oral Keflex. 2 CT of the left medial thigh area did shows possible abscess and Gen. surgery has evaluated the patient recommending no further drainage 3 wound culture has been finalized with MRSA and Enterobacter patient to continue with the cefepime and vancomycin will be added may benefit from outpatient IV antibiotic therapy will discuss further with the vocational case manager Time with Patient: Less than 30
[2022-01-24 20:45] LABS: Glucose,Whole Blood 79 mg/dL (75-99)
[2022-01-24] MEDS: ATORVASTATIN 10 MG TAB PO SCH (21:39)
[2022-01-25] MEDS: CEFEPIME 2 GM in SODIUM CHLORIDE 0.9% 100 ML IVPB SCH ×3 (03:43→18:14)
[2022-01-25 05:25] LABS: African American GFR (CKD) >90 (>60 ml/min/1.73 sqM); Anion Gap 7 mmol/L; Blood Urea Nitrogen 11 mg/dL (7-17); Carbon Dioxide 25 mmol/L (22-30); Chloride 104 mmol/L (98-107); Glucose 107 mg/dL (74-99); Non-African American GFR(CKD) 84 (>60 ml/min/1.73 sqM); Potassium 3.5 mmol/L (3.5-5.1); Sodium 136 mmol/L (137-145)
[2022-01-25 07:21] LABS: Glucose,Whole Blood 105 mg/dL (75-99)
[2022-01-25] MEDS: INSULIN ASPART (NovoLOG) 100 UNIT/ML VIAL SQ SCH ×4 (07:43→20:56)
[2022-01-25] MEDS: VANCOMYCIN 2,000 MG in SODIUM CHLORIDE 0.9% 500 ML 500 ML IVPB SCH (10:12)
--- NOTE | 2022-01-25 11:03 | P.PN ---
Subjective Progress Note Date: 01/25/22 HISTORY OF PRESENT ILLNESS: This is a pleasant 86-year-old female past medical history significant for persistent atrial fibrillation on Eliquis, dyslipidemia, hypertension, type 2 diabetes, mild nonobstructive coronary artery disease, moderate aortic stenosis. She follows with Dr. Delacruz in the office. We have been asked to see in consultation for atrial fibrillation. Patient presents to the emergency department from her PCP office due to concerns for hypotension, bilateral lower extremity cellulitis and elevated heart rate. Patient states that she's been on Keflex for 9 days for cellulitis that started on her right foot, however her bilateral leg swelling, redness and pain have increased. Concern for sepsis. It was recommended that patient come to the emergency department. Patient denies any chest pain, palpitations, lightheadedness, dizziness, syncope or near s yncope. She denies any symptoms of orthopnea PND. She denies any bleeding in her urine or her stool. DIAGNOSTICS EKG reveals atrial fibrillation, heart rate 116 Telemetry tracings indicate atrial fibrillation, heart rates 80slow 100s Most recent echocardiogram in the office 08/31/2021 revealed an EF 5560%, pulmonary artery hypertension with an RVSP of 42 mmHg, mild tricuspid regurgitation, mild mitral regurgitation, moderate aortic stenosis with a peak gradient of 36 mmHg and mean gradient of 23 mmHg, mild aortic regurgitation. Chest CT revealed bronchiectasis phthisis in the right upper and right lower lobes, no pulmonary embolism, possible pulmonary artery hypertension Laboratory reviewed, WBC 8.2, hemoglobin 10.6, platelets 257, sodium 136, potassium 4.7, BUN 21, serum creatinine 0.8, lactate was 2.7, repeat 1.0, proBNP 1510, troponin negative, viral PCr negative 01/25/2022 Patient examined this morning at the bedside. Patient denies chest pain or pressure. Denies SOB. Patient is going for a swallow evaluation today per nursing. Vital signs are stable. PHYSICAL EXAM: VITAL SIGNS: Reviewed. GENERAL: Well-developed in no acute distress. NECK: Supple. No JVD or thyromegaly LUNGS: Respirations even and unlabored. Lungs essentially clear to auscultation bilaterally. HEART: Irregular rate and rhythm. S1 and S2 heard. EXTREMITIES: Normal range of motion. No clubbing or cyanosis. Peripheral pulses intact. Trace lower extremity edema ASSESSMENT: Persistent atrial fibrillation, on Eliquis, rates are currently controlled Hypotension, improved Lactic acidosis Bilateral lower extremity cellulitis Dyslipidemia Type 2 diabetes Mild nonobstructive coronary artery disease Aortic stenosis History of hypertension PLAN: Continue current cardiac medications No changes to medication regimen No further inpatient recommendations from a cardiac standpoint We will sign off. Please reconsult if needed Patient to follow up with Dr. Delacruz Nurse practitioner note has been reviewed by physician. Signing provider agrees with the documented findings, assessment, and plan of care. Objective - Vital Signs Vital signs: Vital Signs Temp 97.9 F 01/25/22 08:00 Pulse 101 H 01/25/22 08:25 Resp 16 01/25/22 08:25 BP 126/76 01/25/22 08:00 Pulse Ox 96 01/25/22 08:00 Intake & Output 01/24/22 01/25/22 01/25/22 18:59 06:59 18:59 Output Total 1000 950 Balance -1000 -950 Output: Urine 1000 950 Other: Voiding Method Diaper Diaper Incontinent Incontinent External Catheter External Catheter - Labs CBC & Chem 7: 01/24/22 06:04 01/25/22 04:39 Labs: Abnormal Lab Results - Last 24 Hours (Table) 01/24/22 01/24/22 01/25/22 Range/Units 11:27 16:26 04:39 Sodium 136 L (137-145) mmol/L Glucose 107 H (74-99) mg/dL POC Glucose (mg/dL) 134 H 139 H (75-99) mg/dL Calcium 8.0 L (8.4-10.2) mg/dL 01/25/22 Range/Units 07:20 Sodium (137-145) mmol/L Glucose (74-99) mg/dL POC Glucose (mg/dL) 105 H (75-99) mg/dL Calcium (8.4-10.2) mg/dL Microbiology - Last 24 Hours (Table) 01/22/22 13:30 Anaerobic Culture - Preliminary Leg - Left 01/22/22 13:30 Gram Stain - Final Leg - Left Wound Culture - Final Methicillin resist S. aureus Enterobacter cloacae
--- NOTE | 2022-01-25 11:09 | P.PN ---
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, morbid obesity, diabetes mellitus type 2, hypertension, hyperlipidemia, history of spinal stenosis status post surgery in [place], history of small bowel obstruction secondary to incarcerated umbilical hernia status post repair of the hernia with resolution of the bowel obstruction, history of atrial fibrillation, history of chronic diastolic heart failure with significant for hypertension and significant venous hypertension both lower extremities and significant edema, patient was seen in the office about a week ago when she came down with a blister to the dorsal acid of the right foot with significant venous hypertension and significant edema both lower extremities, patient was having hard time taking diuretics because of the urinary incontinence and she is not able to make it to the bathroom on time, at that time she was placed on Lasix 80 mg orally twice every day Tuesday and Tuesday and 80 mg in the morning and 40 mg the afternoon on Tuesday and Tuesday she wason oral antibiotic in the form of Keflex 500 mg orally 3 times every day for 10 days, she was supposed to follow-up with [facility] a week later when she came to the office yesterday with significant erythema to the right lower extremity and the left lower extremity as well as significant left thigh erythema with significant tissue swelling and a necrotic area that is draining seropurulent purulent material at that time she was ready to go to the emergency perforated evaluation and possible sepsis she was seen in emergency department and she was found to have an elevated lactic acid 3.7 she was somewhat hypotensive, initially she was in atrial fibrillation with rapid ventricular response, she was placed on her Toprol 25 mg at bedtime, and she was started on IV fluid the form of normal saline at 500 mL 1 and her blood pressure normalizes, her lactic acid normalizes, she was also placed on IV antibiotic in the form of vancomycin as well as meropenem, and will cultures aerobic and anaerobic were obtained as well as blood cultures, infectious disease consultation as well as cardiology consultation was obtained. 01/23: Patient is sitting up in bed is feeling a bit better today, she denies any chest pain, she continues to have some dry cough, she was started yesterday on Tessalon Perles as well as nebulized treatment, she is requiring 3 L nasal cannula, patient was seen in consultation by infectious disease, underwent computed tomography scan of the left lower extremity that showed evidence of possible abscess in the medial aspect of the left thigh we'll consult general surgery Dr. Guzman for evaluation, her antibiotic was switched to vancomycin and cefepime, cultures are still pending, follow-up with the patient very closely. 01/24: Patient is in no apparent distress, she was seen yesterday in consultation by general surgery was recommended to continue the IV antibiotic at this point in time, her culture so far are MSSA gram-negative bacilli, she was taken off vancomycin and kept on cefepime plan for now, continue local care to the left medial posterior thigh, continue warm compresses, noted for any further surgical intervention at this time, there was some concern of possible esophageal obstruction at the GE junction and the patient will have a contrasted esophagram for further evaluation of possible achalasia, patient does not appear to have any significant problem with eating, we'll continue to monitor the patient very closely, continue with physical therapy evaluation, likely the patient require subacute rehabilitation. 01/25: Patient sitting up in bed today does not appear to be in acute distress, she continues to have a dry croupy cough without any phlegm production, she has no fever or chills at this time, she continues to be on a clear liquid diet because of dysphagia and retaining some of the food in her esophagus, she is going for esophagram today for further evaluation of possible GE junction obstruction or achalasia, culture is showing MRSA as well as Enterobacter Cloa she has been maintained on cefepime and vancomycin. REVIEW OF SYSTEMS Constitutional: Reports fever, Reports chills, no night sweats. positive for weight change. Reports weakness, Reports fatigue Reports lethargy. Reports daytime sleepiness. HEENT: No headache. No blurred vision or double vision, no loss of vision. No dizziness. No nasal drainage or congestion. No epistaxis. No sore throat, hard of hearing Lungs: positive for shortness of breath, positive for dry cough, no sputum production. positive for wheezing. Cardiovascular: No chest pain, positive for lower extremity edema, positive for palpitations, positive for paroxysmal nocturnal dyspnea. No orthopnea. No lightheadedness or dizziness. No syncopal episodes. Abdominal: No abdominal pain. No nausea, vomiting. No diarrhea. No constipation. No bloody or tarry stools. Reports loss of appetite. Genitourinary: No dysuria, increased frequency, urgency. No urinary retention. Musculoskeletal: No myalgias. Reports muscle weakness, Reports gait dysfunction, Reports falls. positive for back pain. No neck pain. Integumentary: Reports wound to the left high with significant tissue edema, reports lower extremity redness, there is denuded scab on the orsal aspect of the right foot, and blood blisters to the tip of her toes on the right due to trauma Neurologic: No aphasia. No facial droop. No change in mentation. No head injury. No headache. No paralysis. No paresthesia. Psychiatric: positive for depression. No anxiety. No mood swings. Endocrine: positive for abnormal blood sugars. positive for weight change. PHYSICAL EXAMINATION Gen: This is an 86-year-old female, sitting up in bed in no apparent distress. HEENT: Head is atraumatic, normocephalic. Pupils equal, round. Sclerae is anicteric, mucous membranes of the mouth are somewhat dry, there is minimal thrush. NECK: Supple. No JVD. No lymphadenopathy. No thyromegaly. LUNGS: Decreased breath sounds at the bases, few rhonchi, minimal expiratory wheezes, no chest wall tenderness, no intercostal retractions. HEART: first heart sound is depressed, second heart sound is normal, irregularly irregular, there is systolic ejection murmur 2/6 located at the left sternal border. ABDOMEN: morbidly obese abdomen, soft nontender nondistended, positive bowel sounds. EXTREMITIES: 3+ bilateral pitting edema to the lower extremities, erythema noted to bilateral lower legs, there is a scabbed blister to the right foot and there is erythema with tissue edema to the left thigh with drainage of sero-purulent material NEUROLOGICAL: Patient is awake, alert and oriented x3. Cranial nerves 2 through 12 are grossly intact significant weakness to both lower extremity his right more than left, with right foot drop. ASSESSMENT AND PLAN 1. Sepsis secondary to lower extremity cellulitis and ulcer to right dorsal foot and abscess of the left thigh. Continue vancomycin, continue cefepime, continue local care, final cultures are MRSA plus Enterobacter Clocae 2. Lactic acidosis due to sepsis continue IV antibiotic. Repeat her lactic acid is back to normal 1.2. 3. Atrial fibrillation with rapid ventricular response. Currently controlled rate continue Toprol-XL 25 mg once every day, continue Eliquis 5 mg orally twice every day. 4. Anemia of chronic diseases. Monitor the patient's CBC over the next 24 hours. 5. History of multiple DVTs and PE on filler leaf cutter long anticoagulation. Continue eliquis 5 mg twice daily. Patient recently underwent [place] filter on November 2019 prior to laminectomy surgery. 6. Paroxysmal atrial fibrillation. Continue metoprolol 25 mg twice daily, eliquis 5 mg twice daily. 7. Valvular heart disease with severe tricuspid regurgitation, aortic stenosis with mean gradient of 36 mmHg, mild mitral regurgitation. 8. Severe pulmonary hypertension with RVSP 60 mmHg. continue patient on Toprol- XL 25 mg at bedtime, continue patient on Lasix 80 mg orally twice every day. 9. Hypertension and hypertensive cardiovascular disease. Continue patient on Toprol XL 25 mg orally once every day. 10. Hyperlipidemia. Continue atorvastatin 10 mg at bedtime. 11. Diabetes mellitus type 2. Continue patient on glipizide 5 mg orally twice every day, ,Jardiance 10 mg orally daily along with a slight scale insulin. 12. Spinal stenosis status post laminectomy, stable. PT and OT evaluations once stabilized. 13. Recurrent depression. Continue patient on Effexor 75 mg orally once every day. 14. Gastroesophageal reflux disease and possible esophageal obstruction at the GE junction rule out achalasia. Continue Protonix 40 mg every day, patient scheduled to go for esophagram 15. DVT prophylaxis. Eliquis 5 mg orally twice every day. 16. Physical therapy evaluation for subacute rehabilitation. 17. lithography contact worker consultation. Objective - Vital Signs Vital signs: Vital Signs Temp 97.9 F 01/25/22 08:00 Pulse 101 H 01/25/22 08:25 Resp 16 01/25/22 08:25 BP 126/76 01/25/22 08:00 Pulse Ox 96 01/25/22 08:00 Intake & Output 01/24/22 01/25/22 01/25/22 18:59 06:59 18:59 Output Total 1000 950 Balance -1000 -950 Output: Urine 1000 950 Other: Voiding Method Diaper Diaper Incontinent Incontinent External Catheter External Catheter - Labs CBC & Chem 7: 01/24/22 06:04 01/25/22 04:39 Labs: Abnormal Lab Results - Last 24 Hours (Table) 01/24/22 01/24/22 01/25/22 Range/Units 11:27 16:26 04:39 Sodium 136 L (137-145) mmol/L Glucose 107 H (74-99) mg/dL POC Glucose (mg/dL) 134 H 139 H (75-99) mg/dL Calcium 8.0 L (8.4-10.2) mg/dL 01/25/22 Range/Units 07:20 Sodium (137-145) mmol/L Glucose (74-99) mg/dL POC Glucose (mg/dL) 105 H (75-99) mg/dL Calcium (8.4-10.2) mg/dL Microbiology - Last 24 Hours (Table) 01/22/22 13:30 Anaerobic Culture - Preliminary Leg - Left 01/22/22 13:30 Gram Stain - Final Leg - Left Wound Culture - Final Methicillin resist S. aureus Enterobacter cloacae
[2022-01-25 12:12] LABS: Glucose,Whole Blood 132 mg/dL (75-99)
--- NOTE | 2022-01-25 12:28 | FL ---
EXAMINATION TYPE: FL UGI w esophagus DATE OF EXAM: 01/25/2022 COMPARISON: CT 01/21/2022 HISTORY: Abnormal chest CT TECHNIQUE: A single contrast UGI study is performed. A total of 55 seconds of fluoroscopic time was utilized during procedure and fixed images obtained. FINDINGS: The esophagus shows abnormal appearance, the esophagus is dilated and shows tertiary esophageal contr actions, tortuous course. There is retained debris within the esophagus. Delayed emptying into the stomach through a narrow channel is noted. Delayed imaging was not performe d. Evaluation of the stomach is limited. No images of the duodenal bulb and duodenal sweep. IMPRESSION: Findings are consistent with achalasia.
[2022-01-25] MEDS: glipiZIDE 5 MG TAB PO SCH ×2 (12:59→20:57)
[2022-01-25] MEDS: POTASSIUM CHLORIDE ER 20 MEQ TAB.ER PO SCH ×2 (13:00→20:56)
[2022-01-25] MEDS: VENLAFAXINE HCL ER 75 MG CAP PO SCH (13:00)
[2022-01-25] MEDS: FUROSEMIDE 80 MG TAB PO SCH (13:00)
[2022-01-25] MEDS: METOPROLOL TARTRATE 25 MG TAB PO SCH ×2 (13:00→20:56)
[2022-01-25] MEDS: PANTOPRAZOLE 40 MG TABLET PO SCH (13:00)
[2022-01-25] MEDS: APIXABAN 5 MG TAB PO SCH (13:00)
[2022-01-25] MEDS: NON FORMULARY DRUG (Empagliflozin [Jardiance] 10 MG Tablet) PO SCH (13:01)
[2022-01-25] MEDS: AMMONIUM LACTATE 12% CREAM 140 GM TUBE TOPICAL SCH ×2 (14:54→20:55)
[2022-01-25] MEDS: BACITRACIN ZINC 500 UNIT/GM OINT 28.4 GM TUBE TOPICAL SCH ×2 (14:55→20:56)
[2022-01-25] MEDS: NYSTATIN 100,000UNIT/GM CREAM 30 GM TUBE TOPICAL SCH ×2 (14:56→20:57)
--- NOTE | 2022-01-25 15:02 | P.GSCN ---
History of Present Illness Consult date: 01/25/22 Reason for Consult: Delayed emptying, esophageal narrowing seen on upper GI series History of present illness: CHIEF COMPLAINT: Elevated heart rate, hypotension, cellulitis HISTORY OF PRESENT ILLNESS: This is an 86-year-old female who presented to the emergency room on 01/22/2020 20 sent in from her PCP for arrhythmia and cellulitis. Patient has a wet sounding cough, unable to bring up any phlegm. The patient has been having some irregular cough and vomiting of her food. States that this has been going on and off for several months to a year. She had a upper GI that shows abnormal esophagus, esophagus is dilated shows tertiary esophageal contractions, tortuous course. Retained debris within the esophagus. Delayed emptying into the stomach through narrow channel noted. Findings are consistent with achalasia. The patient has been seen by Dr. Klein with gastroenterology and had an upper and lower endoscopy 01/14/2021 for workup for anemia. EGD revealed diffuse gastritis and tortuous, dilated esophagus suspicious for esophageal dysmotility. Colonoscopy was significant for polypectomy and diffuse scattered diverticulosis. The patient's daughter who is at the bedside states that she's been advised to eat small meals as well as well chopped and to her food well. States patient is not compliant. Patient has been at [facility] with speech pathology following her in the past. Patient's daughter also states her mother eats very fast and then after she started eating will have periods where she starts coughing and then will bring this up some food back up. The patient currently denies any epigastric pain or esophageal discomfort. She denied any feeling of food is stuck or lodged in her throat. She denies any current nausea or vomiting. Dr. Edouard from general surgery was on consult for right abscess and consulted Dr. Cast for further evaluation of esophageal dysmotility. PAST MEDICAL HISTORY: See list. PAST SURGICAL HISTORY: See list. MEDICATIONS: See list. ALLERGIES: See list. SOCIAL HISTORY: No illicit drug use. REVIEW OF SYSTEMS: CONSTITUTIONAL: Denies fever or chills. HEENT: Denies blurred vision, vision changes, or eye pain. Denies hemoptysis CARDIOVASCULAR: Denies chest pain or pressure. RESPIRATORY: No shortness of breath. Has nonproductive cough. GASTROINTESTINAL: See HPI for pertinent findings HEMATOLOGIC: Denies bleeding disorders. GENITOURINARY: Denies any blood in urine or increased urinary frequency. SKIN: Denies pruitis. Denies rash. PHYSICAL EXAM: VITAL SIGNS: Reviewed GENERAL: Well-developed in no acute distress. HEENT: No sclera icterus. Extraocular movements grossly intact. Moist buccal mucosa. Head is atraumatic, normocephalic. No nasal drainage. ABDOMEN: Soft. Obese. Nondistended. Tenderness with palpation to right lower quadrant. NEUROLOGIC: Alert and oriented. Cranial nerves II through XII grossly intact. LABORATORY DATA: WBC 6.7 hemoglobin 10.1 platelet count 139,000 Sodium 136 potassium 3.5 BUN 11 creatinine 0.6 glucose 107 calcium 8 IMAGING: Upper GI/Barium swallow reports abnormal esophagus, esophagus is dilated shows tertiary esophageal contractions, tortuous course. Retained debris within the esophagus. Delayed emptying into the stomach through narrow channel noted. Findings are consistent with achalasia. ASSESSMENT: 1. Dysphagia 2. Dilated esophagus, tertiary esophageal contractions with tortuous esophagus with retained debris within the esophagus and delayed emptying, findings consistent with achalasia as stated on upper GI/barium swallow 3. 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 Atrial fibrillation 5. Diabetes mellitus PLAN: 1. Continue medical management 2. Discussed with patient and her daughter who is her legal guardian recommendation of chopped diet, chewing food well, avoiding dry foods and eating slow, small more frequent meals and following with liquids 3. Continue with dysphasia ground diet for now 3. Further recommendations forthcoming per surgeon Thank you for this consultation, we will continue to follow. The impression and plan of care has been dictated as directed. Dr. Cast I performed a history and examination of this patient, discussed the same with the dictator. I agree with the dictator's note ,documented as a scribe. Any additional findings or plans will be noted. Past Medical History Past Medical History: Blood Disorder, Diabetes Mellitus, Deep Vein Thrombosis (DVT), GERD/Reflux, Hyperlipidemia, Hypertension, Osteoarthritis (OA), Pneumoni a, Pulmonary Embolus (PE), Renal Disease Additional Past Medical History / Comment(s): Hx of PE & DVT, mass on right kidney, cellulitis BLE, falls at home, spinal stenosis status post laminectomy. lt leg gives out wears brace History of Any Multi-Drug Resistant Organisms: MRSA Year Discovered:: 01/22/22 MDRO Source:: Left Leg Past Surgical History: Back Surgery, Breast Surgery, Cholecystectomy, Joint Replacement, Orthopedic Surgery Additional Past Surgical History / Comment(s): thelma knee replac; L shoulder replac.; carpel tunnel vaginal duct cyst; benign breast surg; cataracts; retinal repair left eye. BAck surgery, hernia repair Past Anesthesia/Blood Transfusion Reactions: No Reported Reaction Past Psychological History: Depression Smoking Status: Never smoker Past Alcohol Use History: None Reported Past Drug Use History: None Reported - Past Family History Father Family Medical History: Deep Vein Thrombosis (DVT) Son(s) Family Medical History: Deep Vein Thrombosis (DVT) Mother Family Medical History: Cancer Additional Family Medical History / Comment(s): Mother had cancer in her back. Daughter(s) Family Medical History: Blood Disorder Additional Family Medical History / Comment(s): Daughter has MTHFR factor and pt's grandson has lyme factor V and grand daughter has MTHFR. Medications and Allergies Home Medications Medication Instructions Recorded Confirmed Type Simvastatin [Zocor] 10 mg PO HS 08/25/17 01/21/22 History glipiZIDE [Glucotrol] 5 mg PO BID 08/25/17 01/21/22 History metFORMIN HCL [Glucophage] 1,000 mg PO BID 08/25/17 01/21/22 History Omeprazole [PriLOSEC] 20 mg PO DAILY 08/19/19 01/21/22 History Potassium Chloride [Klor-Con 20] 20 meq PO BID 08/19/19 01/21/22 History Apixaban [Eliquis] 5 mg PO BID 12/13/19 01/21/22 History Dulaglutide [Trulicity] 0.75 mg SQ TH 07/01/21 01/21/22 History Furosemide [Lasix] 80 mg PO BID 07/01/21 01/21/22 History Metoprolol Tartrate [Lopressor] 25 mg PO BID 07/01/21 01/21/22 History Ammonium Lactate Cream [Lac-Hydrin 1 applic TOPICAL BID 01/21/22 01/21/22 History 12% Cream] Cephalexin [Keflex] 500 mg PO TID 01/21/22 01/21/22 History Empagliflozin [Jardiance] 10 mg PO DAILY 01/21/22 01/21/22 History INSULIN ASPART (NovoLOG) [NovoLOG See Protocol SQ ACHS 01/21/22 01/21/22 History (formulary)] Nystatin/Triamcin 1 applic TOPICAL BID 01/21/22 01/21/22 History [Nystatin-Triamcinolone] SILVER sulfADIAZINE Cream 1 applic TOPICAL DAILY 01/21/22 01/21/22 History [Silvadene 1% Cream] Venlafaxine HCl [Effexor XR] 75 mg PO DAILY 01/21/22 01/21/22 History Allergies Allergy/AdvReac Type Severity Reaction Status Date / Time Penicillins Allergy Rash/Hives Verified 01/21/22 16:20 azithromycin AdvReac Dyspnea & Verified 01/21/22 16:20 nausea ciprofloxacin [From Cipro] AdvReac Dyspnea & Verified 01/21/22 16:20 nausea Surgical - Exam Vital Signs Temp Pulse Resp BP Pulse Ox 97.1 F L 113 H 18 117/87 94 L 01/21/22 13:38 01/21/22 13:38 01/21/22 13:38 01/21/22 13:38 01/21/22 13:38 Results - Labs 01/24/22 06:04 01/25/22 04:39 Abnormal Lab Results - Last 24 Hours (Table) 01/24/22 01/25/22 01/25/22 Range/Units 16:26 04:39 07:20 Sodium 136 L (137-145) mmol/L Glucose 107 H (74-99) mg/dL POC Glucose (mg/dL) 139 H 105 H (75-99) mg/dL Calcium 8.0 L (8.4-10.2) mg/dL 01/25/22 Range/Units 12:10 Sodium (137-145) mmol/L Glucose (74-99) mg/dL POC Glucose (mg/dL) 132 H (75-99) mg/dL Calcium (8.4-10.2) mg/dL Microbiology - Last 24 Hours (Table) 01/22/22 13:30 Anaerobic Culture - Preliminary Leg - Left 01/22/22 13:30 Gram Stain - Final Leg - Left Wound Culture - Final Methicillin resist S. aureus Enterobacter cloacae Diabetes panel 01/25/22 Range/Units 04:39 Sodium 136 L (137-145) mmol/L Potassium 3.5 (3.5-5.1) mmol/L Chloride 104 (98-107) mmol/L Carbon Dioxide 25 (22-30) mmol/L BUN 11 (7-17) mg/dL Creatinine 0.60 (0.52-1.04) mg/dL Glucose 107 H (74-99) mg/dL Calcium 8.0 L (8.4-10.2) mg/dL Calcium panel 01/25/22 Range/Units 04:39 Calcium 8.0 L (8.4-10.2) mg/dL Pituitary panel 01/25/22 Range/Units 04:39 Sodium 136 L (137-145) mmol/L Potassium 3.5 (3.5-5.1) mmol/L Chloride 104 (98-107) mmol/L Carbon Dioxide 25 (22-30) mmol/L BUN 11 (7-17) mg/dL Creatinine 0.60 (0.52-1.04) mg/dL Glucose 107 H (74-99) mg/dL Calcium 8.0 L (8.4-10.2) mg/dL Adrenal panel 01/25/22 Range/Units 04:39 Sodium 136 L (137-145) mmol/L Potassium 3.5 (3.5-5.1) mmol/L Chloride 104 (98-107) mmol/L Carbon Dioxide 25 (22-30) mmol/L BUN 11 (7-17) mg/dL Creatinine 0.60 (0.52-1.04) mg/dL Glucose 107 H (74-99) mg/dL Calcium 8.0 L (8.4-10.2) mg/dL
[2022-01-25 17:06] LABS: Glucose,Whole Blood 153 mg/dL (75-99)
[2022-01-25 20:40] LABS: Glucose,Whole Blood 196 mg/dL (75-99)
[2022-01-25] MEDS: ATORVASTATIN 10 MG TAB PO SCH (20:56)
[2022-01-26] MEDS: VANCOMYCIN 2,000 MG in SODIUM CHLORIDE 0.9% 500 ML 500 ML IVPB SCH (00:14)
[2022-01-26] MEDS: CEFEPIME 2 GM in SODIUM CHLORIDE 0.9% 100 ML IVPB SCH ×3 (02:59→18:22)
[2022-01-26 06:53] LABS: Glucose,Whole Blood 131 mg/dL (75-99)
[2022-01-26] MEDS: INSULIN ASPART (NovoLOG) 100 UNIT/ML VIAL SQ SCH ×4 (07:51→20:14)
[2022-01-26] MEDS: NON FORMULARY DRUG (Empagliflozin [Jardiance] 10 MG Tablet) PO SCH (07:54)
[2022-01-26] MEDS: METOPROLOL TARTRATE 25 MG TAB PO SCH ×3 (07:59→20:15)
[2022-01-26] MEDS: VENLAFAXINE HCL ER 75 MG CAP PO SCH (07:59)
[2022-01-26] MEDS: glipiZIDE 5 MG TAB PO SCH ×2 (07:59→20:15)
[2022-01-26] MEDS: FUROSEMIDE 80 MG TAB PO SCH ×2 (07:59→20:15)
[2022-01-26] MEDS: POTASSIUM CHLORIDE ER 20 MEQ TAB.ER PO SCH ×2 (07:59→20:15)
[2022-01-26] MEDS: PANTOPRAZOLE 40 MG TABLET PO SCH (07:59)
[2022-01-26] MEDS: BACITRACIN ZINC 500 UNIT/GM OINT 28.4 GM TUBE TOPICAL SCH (10:02)
--- NOTE | 2022-01-26 10:03 | P.PN ---
Subjective Progress Note Date: 01/26/22 Principal diagnosis: Cellulitis and abscess of the left medial thigh, congestive heart failure and lower extremity lymphedema, regurgitation and possible distal esophageal obstruction on CT, morbid obesity, diabetes mellitus type 2, microcytic hypochromic anemia Patient seen and examined at bedside. Comfortable at rest, no complaints of pain. Denies fever or chills. Drainage at the left medial thigh abscess continues to taper. She tells me she is been tolerating diet and more recently liquids. Barium esophagram was obtained yesterday, images and report were reviewed. Proximal esophagus is tortuous and dilated with evidence of retained food debris. There may be a longer segment stricture distally, there is some passage of contrast to the fundus. Findings were interpreted as consistent with achalasia. Dr. Cast has been consulted as medical GI is not available for inpatient coverage this week and there are tentative plans for endoscopy this coming .. Objective - Vital Signs Vital signs: Vital Signs Temp 98.3 F 01/26/22 07:44 Pulse 87 01/26/22 07:44 Resp 15 01/26/22 03:09 BP 99/64 01/26/22 07:44 Pulse Ox 96 01/26/22 07:44 Intake & Output 01/25/22 01/26/22 01/26/22 18:59 06:59 18:59 Intake Total 550 Output Total 800 Balance 550 -800 Intake: Intake, IV Titration 100 Amount Cefepime 2 gm In Sodium 100 Chloride 0.9% 100 ml @ 25 mls/hr IVPB Q8H [facility] Rx#: [id number] Oral 450 Output: Urine 800 Other: Voiding Method Diaper External Catheter External Catheter Incontinent External Catheter # Voids 4 - Constitutional General appearance: Present: obese - EENT Eyes: Present: PERRLA ENT: Present: hearing grossly normal - Respiratory Respiratory: bilateral: CTA - Cardiovascular Rhythm: regular - Gastrointestinal Gastrointestinal Comment(s): Abdomen is soft, nontender to palpation, no guarding rebound or distention. - Neurologic Neurologic: Present: CNII-XII intact - Musculoskeletal Musculoskeletal Comment(s): Cellulitis of the left medial thigh abscess continues to subside. Peripheral induration is minimal, the small 1 cm or so spontaneously drained abscess cavity is no longer yielding purulent debris. Exam continues to improve. No significant tenderness to palpation. - Psychiatric Psychiatric: Present: A&O x's 3, appropriate affect, intact judgment & insight - Labs CBC & Chem 7: 01/24/22 06:04 01/25/22 04:39 Labs: Abnormal Lab Results - Last 24 Hours (Table) 01/25/22 01/25/22 01/25/22 Range/Units 12:10 17:05 20:38 POC Glucose (mg/dL) 132 H 153 H 196 H (75-99) mg/dL 01/26/22 Range/Units 06:51 POC Glucose (mg/dL) 131 H (75-99) mg/dL - Imaging and Cardiology Abdominal x-ray: report reviewed, image reviewed Assessment and Plan Assessment: 1) 86-year-old lady with spontaneously drained abscess of the left posterior medial thigh. Medical history would be most suggestive of a infected posttraumatic hematoma given oral anticoagulation with Eliquis and frequent falls at home. Adjacent cellulitis without significant underlying fluid cavity on blunt exploration at bedside. Lactic acidosis on presentation resolved with hydration and antibiotics. Improving. 2) Review of imaging shows what may be a significant achalasia or hiatal hernia with degree of obstruction, reported outpatient issues with chronic cough. Regurgitation at bedside noted, at risk for aspiration. Attendance microcytic, hypochromic anemia. Rule out underlying GE junction neoplasia, erosive esophagitis or ulcer disease. 3) Suspected history of chronic congestive heart failure and a lower extremity edema and lymphedema. 4) Remote history of suspected DVT and pulmonary embolus, long-term atrial fibrillation. 5) Diabetes mellitus, morbid obesity. Plan: Continue with antibiotics for 7-10 day course. Okay to shower. Change in the medial thigh dressing with bacitracin ointment twice daily and as needed. No indication for further interventions presently. Will reassess at your request. Agree with plans for endoscopy later this week. This area of obstruction needs to be further characterized. Will need to investigate for neoplastic versus benign etiologies and and if stricture is present as suggested on an esophagogram will need to measure the length to help provide a better feel for whether this is something that can be intervened upon with a balloon, Botox, or Heller myotomy if it does represent an achalasia. Time with Patient: Less than 30
[2022-01-26] MEDS: NYSTATIN 100,000UNIT/GM CREAM 30 GM TUBE TOPICAL SCH ×2 (10:04→20:15)
[2022-01-26] MEDS: AMMONIUM LACTATE 12% CREAM 140 GM TUBE TOPICAL SCH ×2 (10:04→20:15)
--- NOTE | 2022-01-26 10:13 | P.PN ---
Subjective Progress Note Date: 01/26/22 CHIEF COMPLAINT: Dysphagia HISTORY OF PRESENT ILLNESS: This 86-year-old female who has been having intermittent complaints over the last several months of difficulty with swallowing. States sometimes it feels as if food make it stop and she has to cough it back up. As part of her evaluation she had an upper GI/barium swallow showed abnormal esophagus, esophagitis that was dilated as well as tortuous with retained debris in the esophagus. There was narrowing within the esophagus. She also does have a history of an EGD done in December 2020 and also had revealed a tortuous, dilated esophagus suspicious for esophageal dysmotility. Today she has seen and examined at the follow-up. She states that she was doing fine with no vomiting with her ground diet. She is having no difficulty with swallowing her fluids. Denies any abdominal pain, nausea, or vomiting. The plan is for EGD with possible esophageal dilation on . Eliquis is on hold. PHYSICAL EXAM: VITAL SIGNS: Reviewed. GENERAL: Well-developed in no acute distress. HEENT: No sclera icterus. Extraocular movements grossly intact. Moist buccal mucosa. Head is atraumatic, normocephalic. ABDOMEN: Soft. Nondistended. Nontender. NEUROLOGIC: Alert and oriented. Cranial nerves II through XII grossly intact. ASSESSMENT: 1. Dysphagia 2. Dilated esophagus, tertiary esophageal contractions with tortuous esophagus with retained debris within the esophagus and delayed emptying, findings consistent with achalasia as stated on upper GI/barium swallow 3. 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 Atrial fibrillation 5. Diabetes mellitus PLAN: 1. Continue medical management 2. Discussed with patient and her daughter who is her legal guardian recommendation of chopped diet, chewing food well, avoiding dry foods and eating slow, small more frequent meals and following with liquids when she returns home 3. Clear liquid diet 4. Hold Eliquis 5. We'll plan on EGD with possible esophageal dilation on with , this was discussed with both the patient and her legal guardian Bree Feng, they have agreed to proceed with procedure Thank you for this consultation, we will continue to follow. The impression and plan of care has been dictated as directed. I performed a history and examination of this patient, discussed the same with the dictator. I agree with the dictator's note ,documented as a scribe. Any additional findings or plans will be noted. Objective - Vital Signs Vital signs: Vital Signs Temp 98.3 F 01/26/22 07:44 Pulse 87 01/26/22 07:44 Resp 15 01/26/22 03:09 BP 99/64 01/26/22 07:44 Pulse Ox 96 01/26/22 07:44 Intake & Output 01/25/22 01/26/22 01/26/22 18:59 06:59 18:59 Intake Total 550 Output Total 800 Balance 550 -800 Intake: Intake, IV Titration 100 Amount Cefepime 2 gm In Sodium 100 Chloride 0.9% 100 ml @ 25 mls/hr IVPB Q8H [facility] Rx#: [id number] Oral 450 Output: Urine 800 Other: Voiding Method Diaper External Catheter External Catheter Incontinent External Catheter # Voids 4 - Labs CBC & Chem 7: 01/24/22 06:04 01/25/22 04:39 Labs: Abnormal Lab Results - Last 24 Hours (Table) 01/25/22 01/25/22 01/25/22 Range/Units 12:10 17:05 20:38 POC Glucose (mg/dL) 132 H 153 H 196 H (75-99) mg/dL 01/26/22 Range/Units 06:51 POC Glucose (mg/dL) 131 H (75-99) mg/dL
[2022-01-26 10:40] LABS: Basophils # (A) 0.04 X 10*3/uL (0.00-0.10); Basophils % (A) 0.6 %; Eosinophils # (A) 0.17 X 10*3/uL (0.04-0.35); Eosinophils % (A) 2.6 %; HCT 38.6 % (37.2-46.3); Immature Grans, Automated 0.6 %; Lymphocytes # (A) 1.38 X 10*3/uL (0.90-5.00); MCHC 28.5 g/dL (32.0-37.0); MCV 80.8 fL (80.0-97.0); Mean Platelet Volume 9.6 fL (9.5-12.2); Monocytes # (A) 0.72 X 10*3/uL (0.20-1.00); NRBC Per 100 WBC 0 /100 WBCS (0.0-0.0); Neutrophils # (A) 4.22 X 10*3/uL (1.80-7.70); Neutrophils % (A) 64.2 %; Platelet Count 184 X 10*3/uL (140-440); RBC 4.78 X 10*6/uL (4.10-5.20); RDW 21.3 % (11.5-14.5); WBC 6.57 X 10*3/uL (4.50-10.00)
[2022-01-26 10:50] LABS: African American GFR (CKD) 92.2 (60.0-200.0); Albumin 2.7 g/dL (3.8-4.9); Albumin/Globulin Ratio 0.82 (1.60-3.17); Anion Gap 8.3 mmol/L (10.00-18.00); BUN/Creat Ratio 14.14 Ratio (12.00-20.00); Blood Urea Nitrogen 9.9 mg/dL (9.0-27.0); Calcium 8.3 mg/dL (8.7-10.3); Carbon Dioxide 28.7 mmol/L (20.0-27.5); Globulin 3.3 g/dL (1.6-3.3); Non-African American GFR(CKD) 79.6 (60.0-200.0); Potassium 3.8 mmol/L (3.5-5.5); Total Bilirubin 0.5 mg/dL (0.30-1.20)
[2022-01-26 11:51] LABS: Glucose,Whole Blood 188 mg/dL (75-99)
[2022-01-26] MEDS ORDERED: HYDROmorphone 0.5 MG/0.5 ML SYRINGE IVP PRN (16:11)
[2022-01-26 16:23] LABS: Glucose,Whole Blood 174 mg/dL (75-99)
[2022-01-26] MEDS: VANCOMYCIN 2,250 MG in SODIUM CHLORIDE 0.9% 500 ML 500 ML IVPB SCH (17:09)
--- NOTE | 2022-01-26 18:40 | P.PN ---
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, morbid obesity, diabetes mellitus type 2, hypertension, hyperlipidemia, history of spinal stenosis status post surgery in [place], history of small bowel obstruction secondary to incarcerated umbilical hernia status post repair of the hernia with resolution of the bowel obstruction, history of atrial fibrillation, history of chronic diastolic heart failure with significant for hypertension and significant venous hypertension both lower extremities and significant edema, patient was seen in the office about a week ago when she came down with a blister to the dorsal acid of the right foot with significant venous hypertension and significant edema both lower extremities, patient was having hard time taking diuretics because of the urinary incontinence and she is not able to make it to the bathroom on time, at that time she was placed on Lasix 80 mg orally twice every day Tuesday and Tuesday and 80 mg in the morning and 40 mg the afternoon on Tuesday and Tuesday she wason oral antibiotic in the form of Keflex 500 mg orally 3 times every day for 10 days, she was supposed to follow-up with [facility] a week later when she came to the office yesterday with significant erythema to the right lower extremity and the left lower extremity as well as significant left thigh erythema with significant tissue swelling and a necrotic area that is draining seropurulent purulent material at that time she was ready to go to the emergency perforated evaluation and possible sepsis she was seen in emergency department and she was found to have an elevated lactic acid 3.7 she was somewhat hypotensive, initially she was in atrial fibrillation with rapid ventricular response, she was placed on her Toprol 25 mg at bedtime, and she was started on IV fluid the form of normal saline at 500 mL 1 and her blood pressure normalizes, her lactic acid normalizes, she was also placed on IV antibiotic in the form of vancomycin as well as meropenem, and will cultures aerobic and anaerobic were obtained as well as blood cultures, infectious disease consultation as well as cardiology consultation was obtained. 01/23: Patient is sitting up in bed is feeling a bit better today, she denies any chest pain, she continues to have some dry cough, she was started yesterday on Tessalon Perles as well as nebulized treatment, she is requiring 3 L nasal cannula, patient was seen in consultation by infectious disease, underwent computed tomography scan of the left lower extremity that showed evidence of possible abscess in the medial aspect of the left thigh we'll consult general surgery Dr. Guzman for evaluation, her antibiotic was switched to vancomycin and cefepime, cultures are still pending, follow-up with the patient very closely. 01/24: Patient is in no apparent distress, she was seen yesterday in consultation by general surgery was recommended to continue the IV antibiotic at this point in time, her culture so far are MSSA gram-negative bacilli, she was taken off vancomycin and kept on cefepime plan for now, continue local care to the left medial posterior thigh, continue warm compresses, noted for any further surgical intervention at this time, there was some concern of possible esophageal obstruction at the GE junction and the patient will have a contrasted esophagram for further evaluation of possible achalasia, patient does not appear to have any significant problem with eating, we'll continue to monitor the patient very closely, continue with physical therapy evaluation, likely the patient require subacute rehabilitation. 01/25: Patient sitting up in bed today does not appear to be in acute distress, she continues to have a dry croupy cough without any phlegm production, she has no fever or chills at this time, she continues to be on a clear liquid diet because of dysphagia and retaining some of the food in her esophagus, she is going for esophagram today for further evaluation of possible GE junction obstruction or achalasia, culture is showing MRSA as well as Enterobacter Cloa she has been maintained on cefepime and vancomycin. 01/26: Patient is tolerating clear liquid diet, she had esophagram yesterday that showed evidence of achalasia, general surgery saw the patient and she was scheduled to go for an EGD with dilation patient on , we will follow-up with the patient very closely, she continues to have some dry cough, no phlegm production, she has no abdominal pain, nausea or vomiting or diarrhea, she continues to be treated for MRSA and Enterobacter Clocae infection on vancomycin and cefepime. REVIEW OF SYSTEMS Constitutional: Reports fever, Reports chills, no night sweats. positive for weight change. Reports weakness, Reports fatigue Reports lethargy. Reports daytime sleepiness. HEENT: No headache. No blurred vision or double vision, no loss of vision. No dizziness. No nasal drainage or congestion. No epistaxis. No sore throat, hard of hearing Lungs: positive for shortness of breath, positive for dry cough, no sputum production. positive for wheezing. Cardiovascular: No chest pain, positive for lower extremity edema, positive for palpitations, positive for paroxysmal nocturnal dyspnea. No orthopnea. No lightheadedness or dizziness. No syncopal episodes. Abdominal: No abdominal pain. No nausea, vomiting. No diarrhea. No constipation. No bloody or tarry stools. Reports loss of appetite. Genitourinary: No dysuria, increased frequency, urgency. No urinary retention. Musculoskeletal: No myalgias. Reports muscle weakness, Reports gait dysfunction, Reports falls. positive for back pain. No neck pain. Integumentary: Reports wound to the left high with significant tissue edema, reports lower extremity redness, there is denuded scab on the orsal aspect of the right foot, and blood blisters to the tip of her toes on the right due to trauma Neurologic: No aphasia. No facial droop. No change in mentation. No head injury. No headache. No paralysis. No paresthesia. Psychiatric: positive for depression. No anxiety. No mood swings. Endocrine: positive for abnormal blood sugars. positive for weight change. PHYSICAL EXAMINATION Gen: This is an 86-year-old female, sitting up in bed in no apparent distress. HEENT: Head is atraumatic, normocephalic. Pupils equal, round. Sclerae is anicteric, mucous membranes of the mouth are somewhat dry, there is minimal thrush. NECK: Supple. No JVD. No lymphadenopathy. No thyromegaly. LUNGS: Decreased breath sounds at the bases, few rhonchi, minimal expiratory wheezes, no chest wall tenderness, no intercostal retractions. HEART: first heart sound is depressed, second heart sound is normal, irre gularly irregular, there is systolic ejection murmur 2/6 located at the left sternal border. ABDOMEN: morbidly obese abdomen, soft nontender nondistended, positive bowel sounds. EXTREMITIES: 3+ bilateral pitting edema to the lower extremities, erythema noted to bilateral lower legs, there is a scabbed blister to the right foot and there is erythema with tissue edema to the left thigh with drainage of sero-purulent material NEUROLOGICAL: Patient is awake, alert and oriented x3. Cranial nerves 2 through 12 are grossly intact significant weakness to both lower extremity his right more than left, with right foot drop. ASSESSMENT AND PLAN 1. Sepsis secondary to lower extremity cellulitis and ulcer to right dorsal foot and abscess of the left thigh. Continue vancomycin, continue cefepime, continue local care, final cultures are MRSA plus Enterobacter Clocae 2. Lactic acidosis due to sepsis continue IV antibiotic. Repeat her lactic acid is back to normal 1.2. 3. Atrial fibrillation with rapid ventricular response. Currently controlled rate continue Toprol-XL 25 mg once every day, continue Eliquis 5 mg orally twice every day. 4. Anemia of chronic diseases. Monitor the patient's CBC over the next 24 hours. 5. 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 Continue eliquis 5 mg twice daily. Patient recently underwent [place] filter on November 2019 prior to laminectomy surgery. 6. Paroxysmal atrial fibrillation. Continue metoprolol 25 mg twice daily, eliquis 5 mg twice daily. 7. Valvular heart disease with severe tricuspid regurgitation, aortic stenosis with mean gradient of 36 mmHg, mild mitral regurgitation. 8. Severe pulmonary hypertension with RVSP 60 mmHg. continue patient on Toprol- XL 25 mg at bedtime, continue patient on Lasix 80 mg orally twice every day. 9. Hypertension and hypertensive cardiovascular disease. Continue patient on Toprol XL 25 mg orally once every day. 10. Hyperlipidemia. Continue atorvastatin 10 mg at bedtime. 11. Diabetes mellitus type 2. Continue patient on glipizide 5 mg orally twice every day, ,Jardiance 10 mg orally daily along with a slight scale insulin. 12. Spinal stenosis status post laminectomy, stable. PT and OT evaluations once stabilized. 13. Recurrent depression. Continue patient on Effexor 75 mg orally once every day. 14. Achalasia. Patient is scheduled to go for EGD and Dilatation on continue with clear liquid diet. 15. DVT prophylaxis. Eliquis 5 mg orally twice every day. 16. Physical therapy evaluation for subacute rehabilitation. 17. 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 Objective - Vital Signs Vital signs: Vital Signs Temp 98.3 F 01/26/22 07:44 Pulse 87 01/26/22 07:44 Resp 15 01/26/22 03:09 BP 99/64 01/26/22 07:44 Pulse Ox 96 01/26/22 07:44 Intake & Output 01/25/22 01/26/22 01/26/22 18:59 06:59 18:59 Intake Total 550 Output Total 800 Balance 550 -800 Intake: Intake, IV Titration 100 Amount Cefepime 2 gm In Sodium 100 Chloride 0.9% 100 ml @ 25 mls/hr IVPB Q8H [facility] Rx#: [id number] Oral 450 Output: Urine 800 Other: Voiding Method Diaper External Catheter External Catheter Incontinent External Catheter # Voids 4 - Labs CBC & Chem 7: 01/26/22 06:57 01/26/22 06:57 Labs: Abnormal Lab Results - Last 24 Hours (Table) 01/25/22 01/25/22 01/26/22 Range/Units 17:05 20:38 06:51 Hgb (12.0-15.0) g/dL MCH (27.0-32.0) pg MCHC (32.0-37.0) g/dL RDW (11.5-14.5) % Carbon Dioxide (20.0-27.5) mmol/L Anion Gap (10.00-18.00) mmol/L Glucose (70-110) mg/dL POC Glucose (mg/dL) 153 H 196 H 131 H (75-99) mg/dL Calcium (8.7-10.3) mg/dL AST (13-35) U/L Total Protein (6.2-8.2) g/dL Albumin (3.8-4.9) g/dL Albumin/Globulin Ratio (1.60-3.17) g/dL 01/26/22 01/26/22 01/26/22 Range/Units 06:57 06:57 11:50 Hgb 11.0 L (12.0-15.0) g/dL MCH 23.0 L (27.0-32.0) pg MCHC 28.5 L (32.0-37.0) g/dL RDW 21.3 H (11.5-14.5) % Carbon Dioxide 28.7 H (20.0-27.5) mmol/L Anion Gap 8.30 L (10.00-18.00) mmol/L Glucose 119 H (70-110) mg/dL POC Glucose (mg/dL) 188 H (75-99) mg/dL Calcium 8.3 L (8.7-10.3) mg/dL AST 12 L (13-35) U/L Total Protein 6.0 L (6.2-8.2) g/dL Albumin 2.7 L (3.8-4.9) g/dL Albumin/Globulin Ratio 0.82 L (1.60-3.17) g/dL
[2022-01-26 20:11] LABS: Glucose,Whole Blood 171 mg/dL (75-99)
[2022-01-26] MEDS: ATORVASTATIN 10 MG TAB PO SCH (20:15)
--- NOTE | 2022-01-26 22:06 | P.PN ---
Subjective Progress Note Date: 01/25/22 Principal diagnosis: Left thigh abscess and cellulitis Patient is 86-year-old female with multiple comorbidities in this patient with left medial thigh pain Swelling and drainage concerning for underlying abscess and cellulitis. CT of the left thigh did shows possible abscess On today's evaluation that is 01/25/2022, the patient is afebrile, the patient denies having any chest pain shortness of breath or cough, the patient pain to the left thigh has slightly decreased the patient denies having abdominal pain and no diarrhea Objective - Vital Signs Vital signs: Vital Signs Temp 97.9 F 01/25/22 08:00 Pulse 101 H 01/25/22 08:25 Resp 16 01/25/22 08:25 BP 126/76 01/25/22 08:00 Pulse Ox 96 01/25/22 08:00 Intake & Output 01/24/22 01/25/22 01/25/22 18:59 06:59 18:59 Output Total 1000 950 Balance -1000 -950 Output: Urine 1000 950 Other: Voiding Method Diaper Diaper Incontinent Incontinent External Catheter External Catheter - Exam GENERAL DESCRIPTION: An elderly female lying in bed in no distress RESPIRATORY SYSTEM: Unlabored breathing , decreased breath sounds at bases HEART: S1 S2 regular rate and rhythm , ABDOMEN: Soft , no tenderness EXTREMITIES: Left medial thigh with an area of induration and swelling and redness and minimal drainage - Labs CBC & Chem 7: 01/26/22 06:57 01/26/22 06:57 Labs: Abnormal Lab Results - Last 24 Hours (Table) 01/24/22 01/25/22 01/25/22 Range/Units 16:26 04:39 07:20 Sodium 136 L (137-145) mmol/L Glucose 107 H (74-99) mg/dL POC Glucose (mg/dL) 139 H 105 H (75-99) mg/dL Calcium 8.0 L (8.4-10.2) mg/dL 01/25/22 Range/Units 12:10 Sodium (137-145) mmol/L Glucose (74-99) mg/dL POC Glucose (mg/dL) 132 H (75-99) mg/dL Calcium (8.4-10.2) mg/dL Microbiology - Last 24 Hours (Table) 01/22/22 13:30 Anaerobic Culture - Preliminary Leg - Left 01/22/22 13:30 Gram Stain - Final Leg - Left Wound Culture - Final Methicillin resist S. aureus Enterobacter cloacae Assessment and Plan (1) Cellulitis of left leg Current Visit: Yes Status: Acute Code(s): L03.116 - CELLULITIS OF LEFT LOWER LIMB SNOMED Code(s): 191855447 Plan: 1patient with left medial thigh area pain swelling redness and some drainage in this patient did have an area of induration and concerning for possible underlying abscess will need to cover for both gram-positive as well as gram- negative pathogen in this patient recently completed course of oral Keflex. 2 CT of the left medial thigh area did shows possible abscess and Gen. surgery has evaluated the patient 3 wound culture has been finalized with MRSA and Enterobacter patient to con tinue with the cefepime and vancomycin Time with Patient: Less than 30
--- NOTE | 2022-01-26 22:07 | P.PN ---
Subjective Progress Note Date: 01/26/22 Principal diagnosis: Left thigh abscess and cellulitis Patient is 86-year-old female with multiple comorbidities in this patient with left medial thigh pain Swelling and drainage concerning for underlying abscess and cellulitis. CT of the left thigh did shows possible abscess On today's evaluation that is 01/26/2022, the patient remains to be afebrile, the patient denies having any chest pain shortness of breath or cough, the patient pain to the left thigh has decreased in intensity and overall her drainage has decreased as well, the patient denies having abdominal pain and no diarrhea Objective - Vital Signs Vital signs: Vital Signs Temp 98.3 F 01/26/22 07:44 Pulse 87 01/26/22 07:44 Resp 15 01/26/22 03:09 BP 99/64 01/26/22 07:44 Pulse Ox 96 01/26/22 07:44 Intake & Output 01/25/22 01/26/22 01/26/22 18:59 06:59 18:59 Intake Total 550 Output Total 800 Balance 550 -800 Intake: Intake, IV Titration 100 Amount Cefepime 2 gm In Sodium 100 Chloride 0.9% 100 ml @ 25 mls/hr IVPB Q8H [facility] Rx#: [id number] Oral 450 Output: Urine 800 Other: Voiding Method Diaper External Catheter External Catheter Incontinent External Catheter # Voids 4 - Exam GENERAL DESCRIPTION: An elderly female lying in bed in no distress RESPIRATORY SYSTEM: Unlabored breathing , decreased breath sounds at bases HEART: S1 S2 regular rate and rhythm , ABDOMEN: Soft , no tenderness EXTREMITIES: Left medial thigh with an area of induration and swelling and redness and minimal drainage - Labs CBC & Chem 7: 01/26/22 06:57 01/26/22 06:57 Labs: Abnormal Lab Results - Last 24 Hours (Table) 01/25/22 01/25/22 01/26/22 Range/Units 17:05 20:38 06:51 Hgb (12.0-15.0) g/dL MCH (27.0-32.0) pg MCHC (32.0-37.0) g/dL RDW (11.5-14.5) % Carbon Dioxide (20.0-27.5) mmol/L Anion Gap (10.00-18.00) mmol/L Glucose (70-110) mg/dL POC Glucose (mg/dL) 153 H 196 H 131 H (75-99) mg/dL Calcium (8.7-10.3) mg/dL AST (13-35) U/L Total Protein (6.2-8.2) g/dL Albumin (3.8-4.9) g/dL Albumin/Globulin Ratio (1.60-3.17) g/dL 01/26/22 01/26/22 01/26/22 Range/Units 06:57 06:57 11:50 Hgb 11.0 L (12.0-15.0) g/dL MCH 23.0 L (27.0-32.0) pg MCHC 28.5 L (32.0-37.0) g/dL RDW 21.3 H (11.5-14.5) % Carbon Dioxide 28.7 H (20.0-27.5) mmol/L Anion Gap 8.30 L (10.00-18.00) mmol/L Glucose 119 H (70-110) mg/dL POC Glucose (mg/dL) 188 H (75-99) mg/dL Calcium 8.3 L (8.7-10.3) mg/dL AST 12 L (13-35) U/L Total Protein 6.0 L (6.2-8.2) g/dL Albumin 2.7 L (3.8-4.9) g/dL Albumin/Globulin Ratio 0.82 L (1.60-3.17) g/dL Microbiology - Last 24 Hours (Table) 01/22/22 13:30 Anaerobic Culture - Final Leg - Left Assessment and Plan (1) Cellulitis of left leg Current Visit: Yes Status: Acute Code(s): L03.116 - CELLULITIS OF LEFT LOWER LIMB SNOMED Code(s): 511442641 Plan: 1patient with left medial thigh area pain swelling redness and some drainage in this patient did have an area of induration and concerning for possible under lying abscess will need to cover for both gram-positive as well as gram-negative pathogen in this patient recently completed course of oral Keflex. 2 CT of the left medial thigh area did shows possible abscess and Gen. surgery has evaluated the patient 3 wound culture has been finalized with MRSA and Enterobacter patient is currently being treated with the cefepime and vancomycin and may benefit from a short course on discharge hospice case manager is working on an arrangement Time with Patient: Less than 30
[2022-01-27] MEDS: CEFEPIME 2 GM in SODIUM CHLORIDE 0.9% 100 ML IVPB SCH ×2 (03:56→14:34)
[2022-01-27 05:31] LABS: ALT 9 U/L (4-34); AST 18 U/L (14-36); African American GFR (CKD) >90 (>60 ml/min/1.73 sqM); Albumin 2.8 g/dL (3.5-5.0); Albumin/Globulin Ratio 0.7; Alkaline Phosphatase 95 U/L (38-126); Anion Gap 6 mmol/L; Blood Urea Nitrogen 10 mg/dL (7-17); Calcium 8.6 mg/dL (8.4-10.2); Carbon Dioxide 32 mmol/L (22-30); Chloride 98 mmol/L (98-107); Globulin 3.8 g/dL; Glucose 120 mg/dL (74-99); Non-African American GFR(CKD) 79 (>60 ml/min/1.73 sqM); Sodium 136 mmol/L (137-145); Total Bilirubin 0.9 mg/dL (0.2-1.3); Total Protein 6.6 g/dL (6.3-8.2)
[2022-01-27 06:47] LABS: Glucose,Whole Blood 116 mg/dL (75-99)
[2022-01-27] MEDS: NON FORMULARY DRUG (Empagliflozin [Jardiance] 10 MG Tablet) PO SCH (08:02)
[2022-01-27] MEDS: INSULIN ASPART (NovoLOG) 100 UNIT/ML VIAL SQ SCH ×4 (08:05→21:14)
[2022-01-27] MEDS: glipiZIDE 5 MG TAB PO SCH (08:18)
[2022-01-27] MEDS: PANTOPRAZOLE 40 MG TABLET PO SCH (08:18)
[2022-01-27] MEDS: FUROSEMIDE 80 MG TAB PO SCH ×2 (08:18→20:51)
[2022-01-27] MEDS: POTASSIUM CHLORIDE ER 20 MEQ TAB.ER PO SCH ×2 (08:18→20:48)
[2022-01-27] MEDS: VENLAFAXINE HCL ER 75 MG CAP PO SCH (08:18)
[2022-01-27] MEDS: METOPROLOL TARTRATE 25 MG TAB PO SCH ×2 (08:18→20:47)
[2022-01-27 08:55] LABS: Basophils # (A) 0.05 X 10*3/uL (0.00-0.10); Basophils % (A) 0.7 %; Eosinophils # (A) 0.25 X 10*3/uL (0.04-0.35); Eosinophils % (A) 3.7 %; HCT 39.8 % (37.2-46.3); HGB 11.6 g/dL (12.0-15.0); Immature Grans, Automated 0.7 %; Lymphocytes # (A) 1.45 X 10*3/uL (0.90-5.00); Lymphocytes % (A) 21.3 %; MCH 23.3 pg (27.0-32.0); MCHC 29.1 g/dL (32.0-37.0); MCV 79.9 fL (80.0-97.0); Mean Platelet Volume 9.6 fL (9.5-12.2); Monocytes % (A) 10.3 %; NRBC Per 100 WBC 0 /100 WBCS (0.0-0.0); Neutrophils # (A) 4.32 X 10*3/uL (1.80-7.70); Neutrophils % (A) 63.3 %; Platelet Count 132 X 10*3/uL (140-440); RBC 4.98 X 10*6/uL (4.10-5.20); RDW 21.2 % (11.5-14.5); WBC 6.82 X 10*3/uL (4.50-10.00)
[2022-01-27] MEDS ORDERED: LIDOCAINE 1% INJ 10MG/ML (20 ML MDV) SQ ONE (10:59)
[2022-01-27] MEDS: VANCOMYCIN 2,250 MG in SODIUM CHLORIDE 0.9% 500 ML 500 ML IVPB SCH (11:00)
--- NOTE | 2022-01-27 11:09 | P.PN ---
Subjective Progress Note Date: 01/27/22 CHIEF COMPLAINT: Dysphagia HISTORY OF PRESENT ILLNESS: This 86-year-old female who has been having intermittent complaints over the last several months of difficulty with swallowing. States sometimes it feels as if food make it stop and she has to cough it back up. As part of her evaluation she had an upper GI/barium swallow showed abnormal esophagus, esophagitis that was dilated as well as tortuous with retained debris in the esophagus. There was narrowing within the esophagus. She also does have a history of an EGD done in December 2020 and also had revealed a tortuous, dilated esophagus suspicious for esophageal dysmotility. Today she has seen and examined at the follow-up. She She is having no difficulty with swallowing her fluids. Denies any abdominal pain, nausea, or vomiting. The plan is for EGD with possible esophageal dilation on . Eliquis is on hold. PHYSICAL EXAM: VITAL SIGNS: Reviewed. GENERAL: Well-developed in no acute distress. HEENT: No sclera icterus. Extraocular movements grossly intact. Moist buccal mucosa. Head is atraumatic, normocephalic. ABDOMEN: Soft. Nondistended. Nontender. NEUROLOGIC: Alert and oriented. Cranial nerves II through XII grossly intact. ASSESSMENT: 1. Dysphagia 2. Dilated esophagus, tertiary esophageal contractions with tortuous esophagus with retained debris within the esophagus and delayed emptying, findings consistent with achalasia as stated on upper GI/barium swallow 3. 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 Atrial fibrillation 5. Diabetes mellitus PLAN: 1. Continue medical management 2. Full liquid diet, NPO after midnigh 3. Hold Eliquis 4. EGD with possible esophageal dilation tomorrow with , this was discussed with both the patient and her legal guardian Bree Feng, they have agreed to proceed with procedure. Please obtain consent. Thank you for this consultation, we will continue to follow. The impression and plan of care has been dictated as directed. I performed a history and examination of this patient, discussed the same with the dictator. I agree with the dictator's note ,documented as a scribe. Any additional findings or plans will be noted. Objective - Vital Signs Vital signs: Vital Signs Temp 98.5 F 01/27/22 07:18 Pulse 68 01/27/22 07:18 Resp 16 03/09/22 07:18 BP 113/71 01/27/22 07:18 Pulse Ox 95 01/27/22 07:18 Intake & Output 01/26/22 01/27/22 01/27/22 18:59 06:59 18:59 Output Total 1000 900 Balance -1000 -900 Output: Urine 1000 900 Other: Voiding Method External Catheter External Catheter Incontinent - Labs CBC & Chem 7: 01/27/22 04:34 01/27/22 04:34 Labs: Abnormal Lab Results - Last 24 Hours (Table) 01/26/22 01/26/22 01/26/22 Range/Units 11:50 16:22 20:09 Hgb (12.0-15.0) g/dL MCV (80.0-97.0) fL MCH (27.0-32.0) pg MCHC (32.0-37.0) g/dL RDW (11.5-14.5) % Plt Count (140-440) X 10*3/uL Immature Gran # (0.00-0.04) X 10*3/uL Sodium (137-145) mmol/L Carbon Dioxide (22-30) mmol/L Glucose (74-99) mg/dL POC Glucose (mg/dL) 188 H 174 H 171 H (75-99) mg/dL Albumin (3.5-5.0) g/dL 01/27/22 01/27/22 01/27/22 Range/Units 04:34 04:34 06:46 Hgb 11.6 L (12.0-15.0) g/dL MCV 79.9 L (80.0-97.0) fL MCH 23.3 L (27.0-32.0) pg MCHC 29.1 L (32.0-37.0) g/dL RDW 21.2 H (11.5-14.5) % Plt Count 132 L (140-440) X 10*3/uL Immature Gran # 0.05 H (0.00-0.04) X 10*3/uL Sodium 136 L (137-145) mmol/L Carbon Dioxide 32 H (22-30) mmol/L Glucose 120 H (74-99) mg/dL POC Glucose (mg/dL) 116 H (75-99) mg/dL Albumin 2.8 L (3.5-5.0) g/dL Microbiology - Last 24 Hours (Table) 01/22/22 13:30 Anaerobic Culture - Final Leg - Left
[2022-01-27 11:33] LABS: Glucose,Whole Blood 226 mg/dL (75-99)
--- NOTE | 2022-01-27 11:36 | IR ---
PICC LINE PLACEMENT: HISTORY: Infection requiring long-term antibiotic therapy PROCEDURE: Ultrasound and fluoroscopic guidance of PICC line placement. COMPLICATIONS: None ANESTHESIA: 1. 1% Lidocaine locally. FINDINGS/TECHNIQUE: The procedure was explained to the patient. The risks, complications, benefits and alternatives were discussed and any questions were answered. Informed consent was obtained. The patient was placed supine on the fluoroscopic table and prepped and draped in the usual sterile fash ion. Utilizing a 21 gauge needle and sonographic and fluoroscopic guidance, access in the left basi lic vein was achieved and there is placement of a 0.018 guidewire. The vein is patent. A 4-F sheath was placed over the guidewire. The guidewire and dilator were removed and a 4-F. PICC line was plac ed through the sheath with the tip at the level of the SVC. The sheath was removed, the catheter was flushed and sutured into position. The patient was stable throughout the procedure and remained sta ble upon discharge from the Department of Radiology. The vein puncture was patent under ultrasound. A peace scale image was obtained to document patency of the vein punctured. All elements of the maximal barrier technique were utilized. FLUOROSCOPY TIME: 0.3 minutes and one image submitted IMPRESSION: Successful PICC line placement under ultrasound and fluoroscopic guidance.
[2022-01-27] MEDS: AMMONIUM LACTATE 12% CREAM 140 GM TUBE TOPICAL SCH ×2 (11:51→20:46)
[2022-01-27] MEDS: NYSTATIN 100,000UNIT/GM CREAM 30 GM TUBE TOPICAL SCH ×2 (11:51→20:47)
--- NOTE | 2022-01-27 14:28 | P.PN ---
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, morbid obesity, diabetes mellitus type 2, hypertension, hyperlipidemia, history of spinal stenosis status post surgery in [place], history of small bowel obstruction secondary to incarcerated umbilical hernia status post repair of the hernia with resolution of the bowel obstruction, history of atrial fibrillation, history of chronic diastolic heart failure with significant for hypertension and significant venous hypertension both lower extremities and significant edema, patient was seen in the office about a week ago when she came down with a blister to the dorsal acid of the right foot with significant venous hypertension and significant edema both lower extremities, patient was having hard time taking diuretics because of the urinary incontinence and she is not able to make it to the bathroom on time, at that time she was placed on Lasix 80 mg orally twice every day Tuesday and Tuesday and 80 mg in the morning and 40 mg the afternoon on Tuesday and Tuesday she wason oral antibiotic in the form of Keflex 500 mg orally 3 times every day for 10 days, she was supposed to follow-up with us [facility] a week later when she came to the office yesterday with significant erythema to the right lower extremity and the left lower extremity as well as significant left thigh erythema with significant tissue swelling and a necrotic area that is draining seropurulent purulent material at that time she was ready to go to the emergency perforated evaluation and possible sepsis she was seen in emergency department and she was found to have an elevated lactic acid 3.7 she was somewhat hypotensive, initially she was in atrial fibrillation with rapid ventricular response, she was placed on her Toprol 25 mg at bedtime, and she was started on IV fluid the form of normal saline at 500 mL 1 and her blood pressure normalizes, her lactic acid normalizes, she was also placed on IV antibiotic in the form of vancomycin as well as meropenem, and will cultures aerobic and anaerobic were obtained as well as blood cultures, infectious disease consultation as well as cardiology consultation was obtained. 01/23: Patient is sitting up in bed is feeling a bit better today, she denies any chest pain, she continues to have some dry cough, she was started yesterday on Tessalon Perles as well as nebulized treatment, she is requiring 3 L nasal cannula, patient was seen in consultation by infectious disease, underwent computed tomography scan of the left lower extremity that showed evidence of possible abscess in the medial aspect of the left thigh we'll consult general surgery Dr. Guzman for evaluation, her antibiotic was switched to vancomycin and cefepime, cultures are still pending, follow-up with the patient very closely. 01/24: Patient is in no apparent distress, she was seen yesterday in consultation by general surgery was recommended to continue the IV antibiotic at this point in time, her culture so far are MSSA gram-negative bacilli, she was taken off vancomycin and kept on cefepime plan for now, continue local care to the left medial posterior thigh, continue warm compresses, noted for any further surgical intervention at this time, there was some concern of possible esophageal obstruction at the GE junction and the patient will have a contrasted esophagram for further evaluation of possible achalasia, patient does not appear to have any significant problem with eating, we'll continue to monitor the patient very closely, continue with physical therapy evaluation, likely the patient require subacute rehabilitation. 01/25: Patient sitting up in bed today does not appear to be in acute distress, she continues to have a dry croupy cough without any phlegm production, she has no fever or chills at this time, she continues to be on a clear liquid diet because of dysphagia and retaining some of the food in her esophagus, she is going for esophagram today for further evaluation of possible GE junction obstruction or achalasia, culture is showing MRSA as well as Enterobacter Cloa she has been maintained on cefepime and vancomycin. 01/26: Patient is tolerating clear liquid diet, she had esophagram yesterday that showed evidence of achalasia, general surgery saw the patient and she was scheduled to go for an EGD with dilation patient on , we will follow-up with the patient very closely, she continues to have some dry cough, no phlegm production, she has no abdominal pain, nausea or vomiting or diarrhea, she continues to be treated for MRSA and Enterobacter Clocae infection on vancomycin and cefepime. 01/27: Patient continues to be on clear liquid diet, and suspicion for EGD and that the patient tomorrow morning for achalasia, I spoke with her daughter yesterday regarding her mother condition and she was updated about her progress, a PICC line will be inserted, and the patient would be ready to be discharged hopefully the next 1 or 2 days. They elected to go to [facility] the [facility] because they're looking for a private rooms. REVIEW OF SYSTEMS Constitutional: Reports fever, Reports chills, no night sweats. positive for weight change. Reports weakness, Reports fatigue Reports lethargy. Reports daytime sleepiness. HEENT: No headache. No blurred vision or double vision, no loss of vision. No dizziness. No nasal drainage or congestion. No epistaxis. No sore throat, hard of hearing Lungs: positive for shortness of breath, positive for dry cough, no sputum production. positive for wheezing. Cardiovascular: No chest pain, positive for lower extremity edema, positive for palpitations, positive for paroxysmal nocturnal dyspnea. No orthopnea. No lightheadedness or dizziness. No syncopal episodes. Abdominal: No abdominal pain. No nausea, vomiting. No diarrhea. No constipation. No bloody or tarry stools. Reports loss of appetite. Genitourinary: No dysuria, increased frequency, urgency. No urinary retention. Musculoskeletal: No myalgias. Reports muscle weakness, Reports gait dysfuncti on, Reports falls. positive for back pain. No neck pain. Integumentary: Reports wound to the left high with significant tissue edema, reports lower extremity redness, there is denuded scab on the orsal aspect of the right foot, and blood blisters to the tip of her toes on the right due to trauma Neurologic: No aphasia. No facial droop. No change in mentation. No head injury. No headache. No paralysis. No paresthesia. Psychiatric: positive for depression. No anxiety. No mood swings. Endocrine: positive for abnormal blood sugars. positive for weight change. PHYSICAL EXAMINATION Gen: This is an 86-year-old female, sitting up in bed in no apparent d istress. HEENT: Head is atraumatic, normocephalic. Pupils equal, round. Sclerae is anicteric, mucous membranes of the mouth are somewhat dry, there is minimal thrush. NECK: Supple. No JVD. No lymphadenopathy. No thyromegaly. LUNGS: Decreased breath sounds at the bases, few rhonchi, minimal expiratory wheezes, no chest wall tenderness, no intercostal retractions. HEART: first heart sound is depressed, second heart sound is normal, irregularly irregular, there is systolic ejection murmur 2/6 located at the left sternal border. ABDOMEN: morbidly obese abdomen, soft nontender nondistended, positive bowel sounds. EXTREMITIES: 3+ bilateral pitting edema to the lower extremities, erythema noted to bilateral lower legs, there is a scabbed blister to the right foot and there is erythema with tissue edema to the left thigh with drainage of sero-purulent material NEUROLOGICAL: Patient is awake, alert and oriented x3. Cranial nerves 2 through 12 are grossly intact significant weakness to both lower extremity his right more than left, with right foot drop. ASSESSMENT AND PLAN 1. Sepsis secondary to lower extremity cellulitis and ulcer to right dorsal foot and abscess of the left thigh. Continue vancomycin, continue cefepime, continue local care, final cultures are MRSA plus Enterobacter Clocae 2. Lactic acidosis due to sepsis continue IV antibiotic. Repeat her lactic acid is back to normal 1.2. 3. Atrial fibrillation with rapid ventricular response. Currently controlled rate continue Toprol-XL 25 mg once every day, continue Eliquis 5 mg orally twice every day. 4. Anemia of chronic diseases. Monitor the patient's CBC over the next 24 hours. 5. History of multiple DVTs and PE on [place] supervisor anticoagulation. Continue eliquis 5 mg twice daily. Patient recently underwent Malik filter on November 2019 prior to laminectomy surgery. 6. Paroxysmal atrial fibrillation. Continue metoprolol 25 mg twice daily, eliquis 5 mg twice daily. 7. Valvular heart disease with severe tricuspid regurgitation, aortic stenosis with mean gradient of 36 mmHg, mild mitral regurgitation. 8. Severe pulmonary hypertension with RVSP 60 mmHg. continue patient on Toprol- XL 25 mg at bedtime, continue patient on Lasix 80 mg orally twice every day. 9. Hypertension and hypertensive cardiovascular disease. Continue patient on Toprol XL 25 mg orally once every day. 10. Hyperlipidemia. Continue atorvastatin 10 mg at bedtime. 11. Diabetes mellitus type 2. Continue patient on glipizide 5 mg orally twice every day, ,Jardiance 10 mg orally daily along with a slight scale insulin. 12. Spinal stenosis status post laminectomy, stable. PT and OT evaluations once stabilized. 13. Recurrent depression. Continue patient on Effexor 75 mg orally once every day. 14. Achalasia. Patient is scheduled to go for EGD and Dilatation on continue with clear liquid diet. 15. DVT prophylaxis. Eliquis 5 mg orally twice every day. 16. Physical therapy evaluation for subacute rehabilitation. 17. protective services case worker consultation for discharge planning Objective - Vital Signs Vital signs: Vital Signs Temp 98.5 F 01/27/22 07:18 Pulse 68 01/27/22 07:18 Resp 16 01/27/22 07:18 BP 113/71 01/27/22 07:18 Pulse Ox 95 01/27/22 07:18 Intake & Output 01/26/22 01/27/22 01/27/22 18:59 06:59 18:59 Output Total 1000 900 Balance -1000 -900 Output: Urine 1000 900 Other: Voiding Method External Catheter External Catheter - Labs CBC & Chem 7: 01/27/22 04:34 01/27/22 04:34 Labs: Abnormal Lab Results - Last 24 Hours (Table) 01/26/22 01/26/22 01/26/22 Range/Units 06:57 06:57 11:50 Hgb 11.0 L (12.0-15.0) g/dL MCH 23.0 L (27.0-32.0) pg MCHC 28.5 L (32.0-37.0) g/dL RDW 21.3 H (11.5-14.5) % Sodium (137-145) mmol/L Carbon Dioxide 28.7 H (20.0-27.5) mmol/L Anion Gap 8.30 L (10.00-18.00) mmol/L Glucose 119 H (70-110) mg/dL POC Glucose (mg/dL) 188 H (75-99) mg/dL Calcium 8.3 L (8.7-10.3) mg/dL AST 12 L (13-35) U/L Total Protein 6.0 L (6.2-8.2) g/dL Albumin 2.7 L (3.8-4.9) g/dL Albumin/Globulin Ratio 0.82 L (1.60-3.17) g/dL 01/26/22 01/26/22 01/27/22 Range/Units 16:22 20:09 04:34 Hgb (12.0-15.0) g/dL MCH (27.0-32.0) pg MCHC (32.0-37.0) g/dL RDW (11.5-14.5) % Sodium 136 L (137-145) mmol/L Carbon Dioxide 32 H (20.0-27.5) mmol/L Anion Gap (10.00-18.00) mmol/L Glucose 120 H (70-110) mg/dL POC Glucose (mg/dL) 174 H 171 H (75-99) mg/dL Calcium (8.7-10.3) mg/dL AST (13-35) U/L Total Protein (6.2-8.2) g/dL Albumin 2.8 L (3.8-4.9) g/dL Albumin/Globulin Ratio (1.60-3.17) g/dL 01/27/22 Range/Units 06:46 Hgb (12.0-15.0) g/dL MCH (27.0-32.0) pg MCHC (32.0-37.0) g/dL RDW (11.5-14.5) % Sodium (137-145) mmol/L Carbon Dioxide (20.0-27.5) mmol/L Anion Gap (10.00-18.00) mmol/L Glucose (70-110) mg/dL POC Glucose (mg/dL) 116 H (75-99) mg/dL Calcium (8.7-10.3) mg/dL AST (13-35) U/L Total Protein (6.2-8.2) g/dL Albumin (3.8-4.9) g/dL Albumin/Globulin Ratio (1.60-3.17) g/dL Microbiology - Last 24 Hours (Table) 01/22/22 13:30 Anaerobic Culture - Final Leg - Left
[2022-01-27 16:45] LABS: Glucose,Whole Blood 129 mg/dL (75-99)
[2022-01-27] MEDS: ATORVASTATIN 10 MG TAB PO SCH (20:46)
[2022-01-27 21:07] LABS: Glucose,Whole Blood 196 mg/dL (75-99)
[2022-01-28] MEDS ORDERED: VANCOMYCIN TROUGH DUE 1 EACH MISC MISCELLANE ONE
[2022-01-28] MEDS: CEFEPIME 2 GM in SODIUM CHLORIDE 0.9% 100 ML IVPB SCH ×2 (02:00→14:24)
[2022-01-28] MEDS: VANCOMYCIN 2,250 MG in SODIUM CHLORIDE 0.9% 500 ML 500 ML IVPB SCH (03:59)
[2022-01-28 06:57] LABS: Glucose,Whole Blood 139 mg/dL (75-99)
[2022-01-28] MEDS: INSULIN ASPART (NovoLOG) 100 UNIT/ML VIAL SQ SCH ×4 (08:23→20:14)
[2022-01-28] MEDS: NON FORMULARY DRUG (Empagliflozin [Jardiance] 10 MG Tablet) PO SCH (08:24)
[2022-01-28] MEDS: POTASSIUM CHLORIDE ER 20 MEQ TAB.ER PO SCH ×2 (09:14→20:15)
[2022-01-28] MEDS: VENLAFAXINE HCL ER 75 MG CAP PO SCH (09:14)
[2022-01-28] MEDS: FUROSEMIDE 80 MG TAB PO SCH ×2 (09:14→20:15)
[2022-01-28] MEDS: METOPROLOL TARTRATE 25 MG TAB PO SCH ×2 (09:14→20:15)
[2022-01-28] MEDS: PANTOPRAZOLE 40 MG TABLET PO SCH (09:14)
[2022-01-28] MEDS: AMMONIUM LACTATE 12% CREAM 140 GM TUBE TOPICAL SCH ×2 (09:22→20:15)
[2022-01-28] MEDS ORDERED: LIDOCAINE 1% INJ 10MG/ML (20 ML MDV) ONE (11:54)
[2022-01-28] MEDS ORDERED: PROPOFOL 10 MG/ML 20 ML VIAL IV ONE (11:54)
[2022-01-28] MEDS ORDERED: IV FLUID CONTINUATION 1,000 ML IV ONE (12:01)
--- NOTE | 2022-01-28 12:09 | P.OP ---
Date of Procedure: 01/28/22 Preoperative Diagnosis: Dysphagia Postoperative Diagnosis: Dysphagia most likely related to esophageal dysmotility Procedure(s) Performed: EGD Anesthesia: MAC Surgeon: Tyrese Cast Pathology: none sent Condition: stable Disposition: PACU Description of Procedure: The patient's placed on the endoscopy table in the lateral position. She received IV sedation. The gastroscope placed oropharynx passed in the esophagus into the stomach there was no obstruction of the esophagus or GE junction. The scope was then placed through the pylorus. The first and second portion duodenum appeared normal. Scope was unretroflexed and remainder of the stomach appeared normal. Scope was then brought back. There is no evidence of any stricture of the GE junction. The scope was withdrawn for patient.
[2022-01-28 12:47] LABS: Glucose,Whole Blood 136 mg/dL (75-99)
--- NOTE | 2022-01-28 12:58 | P.PN ---
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, morbid obesity, diabetes mellitus type 2, hypertension, hyperlipidemia, history of spinal stenosis status post surgery in [place], history of small bowel obstruction secondary to incarcerated umbilical hernia status post repair of the hernia with resolution of the bowel obstruction, history of atrial fibrillation, history of chronic diastolic heart failure with significant for hypertension and significant venous hypertension both lower extremities and significant edema, patient was seen in the office about a week ago when she came down with a blister to the dorsal acid of the right foot with significant venous hypertension and significant edema both lower extremities, patient was having hard time taking diuretics because of the urinary incontinence and she is not able to make it to the bathroom on time, at that time she was placed on Lasix 80 mg orally twice every day Tuesday and Tuesday and 80 mg in the morning and 40 mg the afternoon on Tuesday and Tuesday she wason oral antibiotic in the form of Keflex 500 mg orally 3 times every day for 10 days, she was supposed to follow-up with us [facility] a week later when she came to the office yesterday with significant erythema to the right lower extremity and the left lower extremity as well as significant left thigh erythema with significant tissue swelling and a necrotic area that is draining seropurulent purulent material at that time she was ready to go to the emergency perforated evaluation and possible sepsis she was seen in emergency department and she was found to have an elevated lactic acid 3.7 she was somewhat hypotensive, initially she was in atrial fibrillation with rapid ventricular response, she was placed on her Toprol 25 mg at bedtime, and she was started on IV fluid the form of normal saline at 500 mL 1 and her blood pressure normalizes, her lactic acid normalizes, she was also placed on IV antibiotic in the form of vancomycin as well as meropenem, and will cultures aerobic and anaerobic were obtained as well as blood cultures, infectious disease consultation as well as cardiology consultation was obtained. 01/23: Patient is sitting up in bed is feeling a bit better today, she denies any chest pain, she continues to have some dry cough, she was started yesterday on Tessalon Perles as well as nebulized treatment, she is requiring 3 L nasal cannula, patient was seen in consultation by infectious disease, underwent computed tomography scan of the left lower extremity that showed evidence of possible abscess in the medial aspect of the left thigh we'll consult general surgery Dr. Guzman for evaluation, her antibiotic was switched to vancomycin and cefepime, cultures are still pending, follow-up with the patient very closely. 01/24: Patient is in no apparent distress, she was seen yesterday in consultation by general surgery was recommended to continue the IV antibiotic at this point in time, her culture so far are MSSA gram-negative bacilli, she was taken off vancomycin and kept on cefepime plan for now, continue local care to the left medial posterior thigh, continue warm compresses, noted for any further surgical intervention at this time, there was some concern of possible esophageal obstruction at the GE junction and the patient will have a contrasted esophagram for further evaluation of possible achalasia, patient does not appear to have any significant problem with eating, we'll continue to monitor the patient very closely, continue with physical therapy evaluation, likely the patient require subacute rehabilitation. 01/25: Patient sitting up in bed today does not appear to be in acute distress, she continues to have a dry croupy cough without any phlegm production, she has no fever or chills at this time, she continues to be on a clear liquid diet because of dysphagia and retaining some of the food in her esophagus, she is going for esophagram today for further evaluation of possible GE junction obstruction or achalasia, culture is showing MRSA as well as Enterobacter Cloa she has been maintained on cefepime and vancomycin. 01/26: Patient is tolerating clear liquid diet, she had esophagram yesterday that showed evidence of achalasia, general surgery saw the patient and she was scheduled to go for an EGD with dilation patient on , we will follow-up with the patient very closely, she continues to have some dry cough, no phlegm production, she has no abdominal pain, nausea or vomiting or diarrhea, she continues to be treated for MRSA and Enterobacter Clocae infection on vancomycin and cefepime. 01/27: Patient continues to be on clear liquid diet, and suspicion for EGD and that the patient tomorrow morning for achalasia, I spoke with her daughter yesterday regarding her mother condition and she was updated about her progress, a PICC line will be inserted, and the patient would be ready to be discharged hopefully the next 1 or 2 days. They elected to go to [facility] on the [place] set of [facility] because they're looking for a private rooms. 01/28: Patient is laying down in bed in no apparent distress, her left thigh is getting a lot better, less edema around the abscess area, she is scheduled to go for EGD with dilataion at around 12:30 today, she already had a PICC line placed in the left upper extremity, she will likely be discharged home in the next 24 hours she elected to go to [facility] on the [place]. REVIEW OF SYSTEMS Constitutional: Reports fever, Reports chills, no night sweats. positive for weight change. Reports weakness, Reports fatigue Reports lethargy. Reports daytime sleepiness. HEENT: No headache. No blurred vision or double vision, no loss of vision. No dizziness. No nasal drainage or congestion. No epistaxis. No sore throat, hard of hearing Lungs: positive for shortness of breath, positive for dry cough, no sputum production. positive for wheezing. Cardiovascular: No chest pain, positive for lower extremity edema, positive for palpitations, positive for paroxysmal nocturnal dyspnea. No orthopnea. No lightheadedness or dizziness. No syncopal episodes. Abdominal: No abdominal pain. No nausea, vomiting. No diarrhea. No constipation. No bloody or tarry stools. Reports loss of appetite. Genitourinary: No dysuria, increased frequency, urgency. No urinary retention. Musculoskeletal: No myalgias. Reports muscle weakness, Reports gait dysfunction, Reports falls. positive for back pain. No neck pain. Integumentary: Reports wound to the left high with significant tissue edema, reports lower extremity redness, there is denuded scab on the orsal aspect of the right foot, and blood blisters to the tip of her toes on the right due to trauma Neurologic: No aphasia. No facial droop. No change in mentation. No head injury. No headache. No paralysis. No paresthesia. Psychiatric: positive for depression. No anxiety. No mood swings. Endocrine: positive for abnormal blood sugars. positive for weight change. PHYSICAL EXAMINATION Gen: This is an 86-year-old female, sitting up in bed in no apparent distress. HEENT: Head is atraumatic, normocephalic. Pupils equal, round. Sclerae is anicteric, mucous membranes of the mouth are somewhat dry, there is minimal thrush. NECK: Supple. No JVD. No lymphadenopathy. No thyromegaly. LUNGS: Decreased breath sounds at the bases, few rhonchi, minimal expiratory wheezes, no chest wall tenderness, no intercostal retractions. HEART: first heart sound is depressed, second heart sound is normal, irregularly irregular, there is systolic ejection murmur 2/6 located at the left sternal border. ABDOMEN: morbidly obese abdomen, soft nontender nondistended, positive bowel sounds. EXTREMITIES: 3+ bilateral pitting edema to the lower extremities, erythema noted to bilateral lower legs, there is a scabbed blister to the right foot and there is erythema with tissue edema to the left thigh with drainage of sero-purulent material NEUROLOGICAL: Patient is awake, alert and oriented x3. Cranial nerves 2 through 12 are grossly intact significant weakness to both lower extremity his right more than left, with right foot drop. ASSESSMENT AND PLAN 1. Sepsis secondary to lower extremity cellulitis and ulcer to right dorsal foot and abscess of the left thigh. Continue vancomycin, continue cefepime, continue local care, final cultures are MRSA plus Enterobacter Clocae 2. Lactic acidosis due to sepsis continue IV antibiotic. Repeat her lactic a walter is back to normal 1.2. 3. Atrial fibrillation with rapid ventricular response. Currently controlled rate continue Toprol-XL 25 mg once every day, continue Eliquis 5 mg orally twice every day. 4. Anemia of chronic diseases. Monitor the patient's CBC over the next 24 hours. 5. History of multiple DVTs and PE on fci anticoagulation. Continue eliquis 5 mg twice daily. Patient recently underwent [place] filter on November 2019 prior to laminectomy surgery. 6. Paroxysmal atrial fibrillation. Continue metoprolol 25 mg twice daily, eliquis 5 mg twice daily. 7. Valvular heart disease with severe tricuspid regurgitation, aortic stenosis with mean gradient of 36 mmHg, mild mitral regurgitation. 8. Severe pulmonary hypertension with RVSP 60 mmHg. continue patient on Toprol- XL 25 mg at bedtime, continue patient on Lasix 80 mg orally twice every day. 9. Hypertension and hypertensive cardiovascular disease. Continue patient on Toprol XL 25 mg orally once every day. 10. Hyperlipidemia. Continue atorvastatin 10 mg at bedtime. 11. Diabetes mellitus type 2. Continue patient on glipizide 5 mg orally twice every day, ,Jardiance 10 mg orally daily along with a slight scale insulin. 12. Spinal stenosis status post laminectomy, stable. PT and OT evaluations once stabilized. 13. Recurrent depression. Continue patient on Effexor 75 mg orally once every day. 14. Achalasia. Patient is scheduled to go for EGD and Dilatation today. 15. DVT prophylaxis. Eliquis 5 mg orally twice every day. 16. Physical therapy evaluation for subacute rehabilitation. 17. home health care worker consultation for discharge planning 18. Discharged to [facility] on the [place] tomorrow morning Objective - Vital Signs Vital signs: Vital Signs Temp 98.0 F 01/28/22 08:00 Pulse 101 H 01/28/22 08:00 Resp 16 01/28/22 08:00 BP 107/66 01/28/22 08:00 Pulse Ox 94 L 01/28/22 08:00 Intake & Output 01/27/22 01/28/22 01/28/22 18:59 06:59 18:59 Output Total 350 850 Balance -350 -850 Output: Urine 350 850 Other: Voiding Method Incontinent Incontinent External Catheter # Bowel Movements 1 - Labs CBC & Chem 7: 01/27/22 04:34 01/27/22 04:34 Labs: Abnormal Lab Results - Last 24 Hours (Table) 01/27/22 01/27/22 01/27/22 Range/Units 11:32 16:44 21:05 POC Glucose (mg/dL) 226 H 129 H 196 H (75-99) mg/dL 01/28/22 Range/Units 06:56 POC Glucose (mg/dL) 139 H (75-99) mg/dL
[2022-01-28 16:50] LABS: Glucose,Whole Blood 178 mg/dL (75-99)
[2022-01-28 20:07] LABS: Glucose,Whole Blood 167 mg/dL (75-99)
[2022-01-28] MEDS: ATORVASTATIN 10 MG TAB PO SCH (20:15)
--- NOTE | 2022-01-29 00:02 | P.PN ---
Subjective Progress Note Date: 01/27/22 Principal diagnosis: Left thigh abscess and cellulitis Patient is 86-year-old female with multiple comorbidities in this patient with left medial thigh pain Swelling and drainage concerning for underlying abscess and cellulitis. CT of the left thigh did shows possible abscess On today's evaluation that is 01/27/2022, the patient is afebrile, the patient denies having any chest pain shortness of breath or cough, the patient pain to the left thigh has decreased in intensity , the patient denies having abdominal pain and no diarrhea Objective - Vital Signs Vital signs: Vital Signs Temp 98.5 F 01/27/22 07:18 Pulse 68 01/27/22 07:18 Resp 16 01/27/22 07:18 BP 113/71 01/27/22 07:18 Pulse Ox 95 01/27/22 07:18 Intake & Output 01/26/22 01/27/22 01/27/22 18:59 06:59 18:59 Output Total 1000 900 Balance -1000 -900 Output: Urine 1000 900 Other: Voiding Method External Catheter External Catheter Incontinent - Exam GENERAL DESCRIPTION: An elderly female lying in bed in no distress RESPIRATORY SYSTEM: Unlabored breathing , decreased breath sounds at bases HEART: S1 S2 regular rate and rhythm , ABDOMEN: Soft , no tenderness EXTREMITIES: Left medial thigh with an area of induration and swelling and redness and minimal drainage - Labs CBC & Chem 7: 01/27/22 04:34 01/27/22 04:34 Labs: Abnormal Lab Results - Last 24 Hours (Table) 01/26/22 01/26/22 01/26/22 Range/Units 11:50 16:22 20:09 Hgb (12.0-15.0) g/dL MCV (80.0-97.0) fL MCH (27.0-32.0) pg MCHC (32.0-37.0) g/dL RDW (11.5-14.5) % Plt Count (140-440) X 10*3/uL Immature Gran # (0.00-0.04) X 10*3/uL Sodium (137-145) mmol/L Carbon Dioxide (22-30) mmol/L Glucose (74-99) mg/dL POC Glucose (mg/dL) 188 H 174 H 171 H (75-99) mg/dL Albumin (3.5-5.0) g/dL 01/27/22 01/27/22 01/27/22 Range/Units 04:34 04:34 06:46 Hgb 11.6 L (12.0-15.0) g/dL MCV 79.9 L (80.0-97.0) fL MCH 23.3 L (27.0-32.0) pg MCHC 29.1 L (32.0-37.0) g/dL RDW 21.2 H (11.5-14.5) % Plt Count 132 L (140-440) X 10*3/uL Immature Gran # 0.05 H (0.00-0.04) X 10*3/uL Sodium 136 L (137-145) mmol/L Carbon Dioxide 32 H (22-30) mmol/L Glucose 120 H (74-99) mg/dL POC Glucose (mg/dL) 116 H (75-99) mg/dL Albumin 2.8 L (3.5-5.0) g/dL Microbiology - Last 24 Hours (Table) 01/22/22 13:30 Anaerobic Culture - Final Leg - Left Assessment and Plan (1) Cellulitis of left leg Current Visit: Yes Status: Acute Code(s): L03.116 - CELLULITIS OF LEFT LOWER LIMB SNOMED Code(s): 874812150 Plan: 1patient with left medial thigh area pain swelling redness and some drainage in this patient did have an area of induration and concerning for possible under lying abscess will need to cover for both gram-positive as well as gram-negative pathogen in this patient recently completed course of oral Keflex. 2 CT of the left medial thigh area did shows possible abscess and Gen. surgery has evaluated the patient 3 wound culture has been finalized with MRSA and Enterobacter patient to continue with the cefepime and vancomycin and may benefit from a short course on discharge Time with Patient: Less than 30
--- NOTE | 2022-01-29 00:03 | P.PN ---
Subjective Progress Note Date: 01/28/22 Principal diagnosis: Left thigh abscess and cellulitis Patient is 86-year-old female with multiple comorbidities in this patient with left medial thigh pain Swelling and drainage concerning for underlying abscess and cellulitis. CT of the left thigh did shows possible abscess On today's evaluation that is 01/28/2022, the patient continues to be afebrile, the patient denies chest pain shortness of breath or cough, the patient pain to the left thigh is currently controlled, the patient denies having abdominal pain and no diarrhea Objective - Vital Signs Vital signs: Vital Signs Temp 98.0 F 01/28/22 08:00 Pulse 101 H 01/28/22 08:00 Resp 16 01/28/22 08:00 BP 107/66 01/28/22 08:00 Pulse Ox 94 L 01/28/22 08:00 Intake & Output 01/27/22 01/28/22 01/28/22 18:59 06:59 18:59 Intake Total 100 Output Total 350 850 Balance -350 -850 100 Intake: IV 100 Output: Urine 350 850 Other: Voiding Method Incontinent Incontinent External Catheter # Bowel Movements 1 - Exam GENERAL DESCRIPTION: An elderly female lying in bed in no distress RESPIRATORY SYSTEM: Unlabored breathing , decreased breath sounds at bases HEART: S1 S2 regular rate and rhythm , ABDOMEN: Soft , no tenderness EXTREMITIES: Left medial thigh with an area of induration and swelling and redness and minimal drainage - Labs CBC & Chem 7: 01/27/22 04:34 01/27/22 04:34 Labs: Abnormal Lab Results - Last 24 Hours (Table) 01/27/22 01/27/22 01/28/22 Range/Units 16:44 21:05 06:56 POC Glucose (mg/dL) 129 H 196 H 139 H (75-99) mg/dL 01/28/22 Range/Units 12:46 POC Glucose (mg/dL) 136 H (75-99) mg/dL Assessment and Plan (1) Cellulitis of left leg Current Visit: Yes Status: Acute Code(s): L03.116 - CELLULITIS OF LEFT LOWER LIMB SNOMED Code(s): 771666517 Plan: 1patient with left medial thigh area pain swelling redness and some drainage in this patient did have an area of induration and concerning for possible underlying abscess will need to cover for both gram-positive as well as gram- negative pathogen in this patient recently completed course of oral Keflex. 2 CT of the left medial thigh area did shows possible abscess and Gen. surgery has evaluated the patient 3 wound culture has been finalized with MRSA and Enterobacter patient to continue with the cefepime and vancomycin while inpatient and plan to finish therapy with a short course of IV vancomycin and Rocephin on discharge for the patient already got a PICC line Time with Patient: Less than 30
[2022-01-29] MEDS: CEFEPIME 2 GM in SODIUM CHLORIDE 0.9% 100 ML IVPB SCH (01:10)
[2022-01-29] MEDS ORDERED: VANCOMYCIN 2,250 MG in SODIUM CHLORIDE 0.9% 500 ML 500 ML IVPB SCH (06:00)
[2022-01-29 06:32] LABS: African American GFR (CKD) 52 (>60 ml/min/1.73 sqM); Anion Gap 0 mmol/L; Blood Urea Nitrogen 16 mg/dL (7-17); Calcium 8.3 mg/dL (8.4-10.2); Carbon Dioxide 33 mmol/L (22-30); Chloride 101 mmol/L (98-107); Glucose 137 mg/dL (74-99); Non-African American GFR(CKD) 45 (>60 ml/min/1.73 sqM); Potassium 3.6 mmol/L (3.5-5.1); Sodium 134 mmol/L (137-145)
[2022-01-29 07:01] LABS: Glucose,Whole Blood 134 mg/dL (75-99)
[2022-01-29] MEDS: NON FORMULARY DRUG (Empagliflozin [Jardiance] 10 MG Tablet) PO SCH (07:19)
[2022-01-29 07:49] VITALS: BP 95/60; PULSE 108; RESP 16; TEMP 98
[2022-01-29] MEDS: FUROSEMIDE 80 MG TAB PO SCH (07:52)
[2022-01-29] MEDS: INSULIN ASPART (NovoLOG) 100 UNIT/ML VIAL SQ SCH ×2 (07:52→11:43)
[2022-01-29] MEDS: AMMONIUM LACTATE 12% CREAM 140 GM TUBE TOPICAL SCH (07:52)
[2022-01-29] MEDS: POTASSIUM CHLORIDE ER 20 MEQ TAB.ER PO SCH (07:52)
[2022-01-29] MEDS: VENLAFAXINE HCL ER 75 MG CAP PO SCH (07:52)
[2022-01-29] MEDS: METOPROLOL TARTRATE 25 MG TAB PO SCH (07:52)
[2022-01-29] MEDS: PANTOPRAZOLE 40 MG TABLET PO SCH (07:52)
[2022-01-29] MEDS ORDERED: APIXABAN 5 MG TAB PO SCH (09:00)
--- NOTE | 2022-01-29 10:47 | P.DS ---
Providers Date of admission: 01/22/22 12:24 Expected date of discharge: 01/29/22 Attending physician: Kinjal Liu Consults: 01/22/22 08:31 Consult Physician Routine Consulting Provider: Yue Aguila Consult Reason/Comments: Cellulitis/Sepsis Do you want consulting provider notified?: Yes 01/23/22 11:13 Consult Physician Routine Consulting Provider: Lo Guzman Consult Reason/Comments: Left thigh Abscess Do you want consulting provider notified?: Yes 01/25/22 12:43 Consult Physician Urgent Consulting Provider: Tyrese Cast Consult Reason/Comments: Delayed emptying, esophageal narrowing, achalasia Do you want consulting provider notified?: Yes Primary care physician: Kinjal Liu Hospital Course: HISTORY OF PRESENT ILLNESS This is an 86-year-old female patient of [facility], with 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, morbid obesity, diabetes mellitus type 2, hypertension, hyperlipidemia, history of spinal stenosis status post surgery in [place], history of small bowel obstruction secondary to incarcerated umbilical hernia status post repair of the hernia with resolution of the bowel obstruction, history of atrial fibrillation, history of chronic diastolic heart failure with significant for hypertension and significant venous hypertension both lower extremities and significant edema, patient was seen in the office about a week ago when she came down with a blister to the dorsal acid of the right foot with significant venous hypertension and significant edema both lower extremities, patient was having hard time taking diuretics because of the urinary incontinence and she is not able to make it to the bathroom on time, at that time she was placed on Lasix 80 mg orally twice every day Tuesday and Tuesday and 80 mg in the morning and 40 mg the afternoon on Tuesday and Tuesday she wason oral antibiotic in the form of Keflex 500 mg orally 3 times every day for 10 days, she was supposed to follow-up with us about a week later when she came to the office yesterday with significant erythema to the right lower extremity and the left lower extremity as well as significant left thigh erythema with significant tissue swelling and a necrotic area that is draining seropurulent purulent material at that time she was ready to go to the emergency perforated evaluation and possible sepsis she was seen in emergency department and she was found to have an elevated lactic acid 3.7 she was somewhat hypotensive, initially she was in atrial fibrillation with rapid ventricular response, she was placed on her Toprol 25 mg at bedtime, and she was started on IV fluid the form of normal saline at 500 mL 1 and her blood pressure normalizes, her lactic acid normalizes, she was also placed on IV antibiotic in the form of vancomycin as well as meropenem, and will cultures aerobic and anaerobic were obtained as well as blood cultures, infectious disease consultation as well as cardiology consultation was obtained. 3: Patient is sitting up in bed is feeling a bit better today, she denies any chest pain, she continues to have some dry cough, she was started yesterday on Tessalon Perles as well as nebulized treatment, she is requiring 3 L nasal cannula, patient was seen in consultation by infectious disease, underwent computed tomography scan of the left lower extremity that showed evidence of possible abscess in the medial aspect of the left thigh we'll consult general surgery Dr. Guzman for evaluation, her antibiotic was switched to vancomycin and cefepime, cultures are still pending, follow-up with the patient very closely. 01/24: Patient is in no apparent distress, she was seen yesterday in consultation by general surgery was recommended to continue the IV antibiotic at this point in time, her culture so far are MSSA gram-negative bacilli, she was taken off vancomycin and kept on cefepime plan for now, continue local care to the left medial posterior thigh, continue warm compresses, noted for any further surgical intervention at this time, there was some concern of possible esophageal obstruction at the GE junction and the patient will have a contrasted esophagram for further evaluation of possible achalasia, patient does not appear to have any significant problem with eating, we'll continue to monitor the patient very closely, continue with physical therapy evaluation, likely the patient require subacute rehabilitation. 01/25: Patient sitting up in bed today does not appear to be in acute distress, she continues to have a dry croupy cough without any phlegm production, she has no fever or chills at this time, she continues to be on a clear liquid diet because of dysphagia and retaining some of the food in her esophagus, she is going for esophagram today for further evaluation of possible GE junction obstruction or achalasia, culture is showing MRSA as well as Enterobacter Cloacae she has been maintained on cefepime and vancomycin. 01/26: Patient is tolerating clear liquid diet, she had esophagram yesterday that showed evidence of achalasia, general surgery saw the patient and she was scheduled to go for an EGD with dilation patient on , we will follow-up with the patient very closely, she continues to have some dry cough, no phlegm production, she has no abdominal pain, nausea or vomiting or diarrhea, she continues to be treated for MRSA and Enterobacter Clocae infection on vancomycin and cefepime. 01/27: Patient continues to be on clear liquid diet, and suspicion for EGD and that the patient tomorrow morning for achalasia, I spoke with her daughter yesterday regarding her mother condition and she was updated about her progress, a PICC line will be inserted, and the patient would be ready to be discharged ho pefully the next 1 or 2 days. They elected to go to [facility] on the [facility] because they're looking for a private rooms. 01/28: Patient is laying down in bed in no apparent distress, her left thigh is getting a lot better, less edema around the abscess area, she is scheduled to go for EGD with dilataion at around 12:30 today, she already had a PICC line placed in the left upper extremity, she will likely be discharged home in the next 24 hours she elected to go to [facility] on the [place]. Discharge diagnoses: 1. Sepsis secondary to lower extremity cellulitis and ulcer to right dorsal foot and abscess of the left thigh. Continue vancomycin, continue cetriaxone for 10 days, 2. Lactic acidosis due to sepsis continue IV antibiotic. 3. Atrial fibrillation with rapid ventricular response. 4. Anemia of chronic diseases. 5. History of multiple DVTs and PE on intermediate anticoagulation. 6. Paroxysmal atrial fibrillation. 7. Valvular heart disease with severe tricuspid regurgitation, aortic stenosis with mean gradient of 36 mmHg, mild mitral regurgitation. 8. Severe pulmonary hypertension with RVSP 60 mmHg. 9. Hypertension and hypertensive cardiovascular disease. 10. Hyperlipidemia. 11. Diabetes mellitus type 2. 12. Spinal stenosis status post laminectomy, 13. Recurrent depression. 14. Achalasia. Patient Condition at Discharge: Fair Plan - Discharge Summary New Discharge Prescriptions: No Action Simvastatin [Zocor] 10 mg PO HS metFORMIN HCL [Glucophage] 1,000 mg PO BID Potassium Chloride [Klor-Con 20] 20 meq PO BID Omeprazole [PriLOSEC] 20 mg PO DAILY Apixaban [Eliquis] 5 mg PO BID Furosemide [Lasix] 80 mg PO BID Dulaglutide [Trulicity] 0.75 mg SQ TH SILVER sulfADIAZINE Cream [Silvadene 1% Cream] 1 applic TOPICAL DAILY Empagliflozin [Jardiance] 10 mg PO DAILY Metoprolol Tartrate [Lopressor] 25 mg PO BID Venlafaxine HCl [Effexor XR] 75 mg PO DAILY INSULIN ASPART (NovoLOG) [NovoLOG (formulary)] See Protocol SQ ACHS Nystatin/Triamcin [Nystatin-Triamcinolone] 1 applic TOPICAL BID Cephalexin [Keflex] 500 mg PO TID Ammonium Lactate Cream [Lac-Hydrin 12% Cream] 1 applic TOPICAL BID Discharge Medication List Simvastatin [Zocor] 10 mg PO HS 08/25/17 [History] metFORMIN HCL [Glucophage] 1,000 mg PO BID 08/25/17 [History] Omeprazole [PriLOSEC] 20 mg PO DAILY 08/19/19 [History] Potassium Chloride [Klor-Con 20] 20 meq PO BID 08/19/19 [History] Apixaban [Eliquis] 5 mg PO BID 12/13/19 [History] Dulaglutide [Trulicity] 0.75 mg SQ TH 07/01/21 [History] Furosemide [Lasix] 80 mg PO BID 07/01/21 [History] Metoprolol Tartrate [Lopressor] 25 mg PO BID 07/01/21 [History] Ammonium Lactate Cream [Lac-Hydrin 12% Cream] 1 applic TOPICAL BID 01/21/22 [History] Cephalexin [Keflex] 500 mg PO TID 01/21/22 [History] Empagliflozin [Jardiance] 10 mg PO DAILY 01/21/22 [History] INSULIN ASPART (NovoLOG) [NovoLOG (formulary)] See Protocol SQ ACHS 01/21/22 [History] Nystatin/Triamcin [Nystatin-Triamcinolone] 1 applic TOPICAL BID 01/21/22 [History] SILVER sulfADIAZINE Cream [Silvadene 1% Cream] 1 applic TOPICAL DAILY 01/21/22 [History] Venlafaxine HCl [Effexor XR] 75 mg PO DAILY 01/21/22 [History] Follow up Appointment(s)/Referral(s): Paul Delacruz MD [STAFF PHYSICIAN] - 1 Week (Office will call you with your appointment date and time. ) Kinjal Liu MD [Primary Care Provider] - 02/04/22 2:15 pm Patrizia Klein MD [STAFF PHYSICIAN] - As Needed (Follow-up when discharged from rehab to address dysmotility of esophagus/vomiting, for now continue a chopped diet. )
[2022-01-29 11:23] LABS: Glucose,Whole Blood 178 mg/dL (75-99)
--- NOTE | 2022-01-29 12:00 | P.PN ---
Subjective Progress Note Date: 01/29/22 CHIEF COMPLAINT: Dysphagia HISTORY OF PRESENT ILLNESS: Patient is status post EGD for her dysphagia which is most likely related to esophageal dysmotility. There was no evidence of any stricture of the GE junction. Patient is tolerating a dysphagia chopped diet. Denies any difficulty swallowing. Denies any nausea or vomiting. Denies any abdominal pain. Afebrile PHYSICAL EXAM: VITAL SIGNS: Reviewed. GENERAL: Well-developed in no acute distress. HEENT: No sclera icterus. Extraocular movements grossly intact. Moist buccal mucosa. Head is atraumatic, normocephalic. ABDOMEN: Soft. Nondistended. Nontender. NEUROLOGIC: Alert and oriented. Cranial nerves II through XII grossly intact. ASSESSMENT: 1. Dysphagia most likely due to esophageal dysmotility. Status post EGD PLAN: -Patient can be discharged from surgical standpoint -Recommend to continue a dysphagia chopped diet -Educated patient to chew food thoroughly and to eat slowly with small bites of food -Recommend patient follow-up with GI service for further workup on esophageal dysmotility -Surgical service will sign off. Please call with any questions or concerns Physician History Faculty Member note has been reviewed by physician. Signing provider agrees with the documented findings, assessment, and plan of care. Objective - Vital Signs Vital signs: Vital Signs Temp 98.0 F 01/29/22 07:40 Pulse 108 H 01/29/22 07:40 Resp 16 01/29/22 07:40 BP 95/60 01/29/22 07:40 Pulse Ox 95 01/29/22 07:40 Intake & Output 01/28/22 01/29/22 01/29/22 18:59 06:59 18:59 Intake Total 100 600 Balance 100 600 Intake: IV 100 Intake, IV Titration 600 Amount Cefepime 2 gm In Sodium 100 Chloride 0.9% 100 ml @ 25 mls/hr IVPB Q12H ALINA Rx# :[id number] Vancomycin 2,250 mg In 500 Sodium Chloride 0.9% 500 ml 500 ml @ 167 mls/hr IVPB Q24H ALINA Rx#: [id number] Other: Voiding Method External Catheter Incontinent External Catheter # Voids 700 - Labs CBC & Chem 7: 01/27/22 04:34 01/29/22 06:08 Labs: Abnormal Lab Results - Last 24 Hours (Table) 01/28/22 01/28/22 01/28/22 Range/Units 12:46 16:49 20:05 Sodium (137-145) mmol/L Carbon Dioxide (22-30) mmol/L Creatinine (0.52-1.04) mg/dL Glucose (74-99) mg/dL POC Glucose (mg/dL) 136 H 178 H 167 H (75-99) mg/dL Calcium (8.4-10.2) mg/dL 01/29/22 01/29/22 01/29/22 Range/Units 06:08 06:58 11:21 Sodium 134 L (137-145) mmol/L Carbon Dioxide 33 H (22-30) mmol/L Creatinine 1.13 H (0.52-1.04) mg/dL Glucose 137 H (74-99) mg/dL POC Glucose (mg/dL) 134 H 178 H (75-99) mg/dL Calcium 8.3 L (8.4-10.2) mg/dL
[2022-01-29 13:59] VITALS: BMI 47.4
[2022-01-31] MEDS ORDERED: VANCOMYCIN TROUGH DUE 1 EACH MISC MISCELLANE ONE (05:00)
== END 2022-01-29 13:53 | DRG 872 ==
LOC: EC 13:35 → EEVIPCON 13:35 → 6NMEDSUR 18:49 → OBSVTOIN 01-22 12:24 → 4SSUR 01-23 00:19
PROVIDERS: ADMIT Internal Medicine; ATTEND Internal Medicine
PROC: 02HV33Z Insertion of Infusion Device into Superior Vena Cava, Percutaneous Approach (ICD-10-PCS; 2022-01-27)
PROC: 0DJ08ZZ Inspection of Upper Intestinal Tract, Via Natural or Artificial Opening Endoscopic (ICD-10-PCS; principal; 2022-01-28 11:50)
DX: A41.02 Sepsis due to Methicillin resistant Staphylococcus aureus (principal); L02.416 Cutaneous abscess of left lower limb; E87.2 Acidosis; B37.0 Candidal stomatitis; I13.0 Hypertensive heart and chronic kidney disease with heart failure and stage 1 through stage 4 chronic kidney disease, or unspecified chronic kidney disease; I50.32 Chronic diastolic (congestive) heart failure; I87.311 Chronic venous hypertension (idiopathic) with ulcer of right lower extremity; I48.21 Permanent atrial fibrillation; Z68.42 Body mass index [BMI] 45.0-49.9, adult; F33.9 Major depressive disorder, recurrent, unspecified; J98.11 Atelectasis; L03.116 Cellulitis of left lower limb; L03.115 Cellulitis of right lower limb; I08.2 Rheumatic disorders of both aortic and tricuspid valves; D63.1 Anemia in chronic kidney disease; I95.9 Hypotension, unspecified; I27.21 Secondary pulmonary arterial hypertension; A41.81 Sepsis due to Enterococcus; I50.82 Biventricular heart failure; K22.0 Achalasia of cardia; L97.519 Non-pressure chronic ulcer of other part of right foot with unspecified severity; E11.22 Type 2 diabetes mellitus with diabetic chronic kidney disease; E11.621 Type 2 diabetes mellitus with foot ulcer; N18.30 Chronic kidney disease, stage 3 unspecified; E66.01 Morbid (severe) obesity due to excess calories; Z79.4 Long term (current) use of insulin; Z20.822 Contact with and (suspected) exposure to COVID-19; I25.10 Atherosclerotic heart disease of native coronary artery without angina pectoris; K21.00 Gastro-esophageal reflux disease with esophagitis, without bleeding; E78.5 Hyperlipidemia, unspecified; D50.9 Iron deficiency anemia, unspecified; I89.0 Lymphedema, not elsewhere classified; R32 Unspecified urinary incontinence; M19.90 Unspecified osteoarthritis, unspecified site; K30 Functional dyspepsia; K22.4 Dyskinesia of esophagus; K57.90 Diverticulosis of intestine, part unspecified, without perforation or abscess without bleeding; K29.70 Gastritis, unspecified, without bleeding; N28.89 Other specified disorders of kidney and ureter; R09.02 Hypoxemia; M48.00 Spinal stenosis, site unspecified; Z79.01 Long term (current) use of anticoagulants; Z79.84 Long term (current) use of oral hypoglycemic drugs; Z79.899 Other long term (current) drug therapy; Z86.718 Personal history of other venous thrombosis and embolism; Z86.711 Personal history of pulmonary embolism; Z87.01 Personal history of pneumonia (recurrent); Z90.49 Acquired absence of other specified parts of digestive tract; Z91.81 History of falling; Z96.653 Presence of artificial knee joint, bilateral; Z96.612 Presence of left artificial shoulder joint; Z98.42 Cataract extraction status, left eye; Z98.41 Cataract extraction status, right eye; Z96.1 Presence of intraocular lens; Z86.14 Personal history of Methicillin resistant Staphylococcus aureus infection; Z87.39 Personal history of other diseases of the musculoskeletal system and connective tissue; Z86.69 Personal history of other diseases of the nervous system and sense organs; Z87.19 Personal history of other diseases of the digestive system; Z86.018 Personal history of other benign neoplasm; Z98.890 Other specified postprocedural states; Z71.3 Dietary counseling and surveillance; Z88.1 Allergy status to other antibiotic agents; Z88.0 Allergy status to penicillin; Z80.8 Family history of malignant neoplasm of other organs or systems; Z83.2 Family history of diseases of the blood and blood-forming organs and certain disorders involving the immune mechanism; Z82.3 Family history of stroke
CPT/HCPCS: 36415; 36573; 43235; 71046; 71275; 74240; 80048; 80053; 80202; 81003; 83605; 83735; 83880; 84484; 85025; 85610; 85730; 87070; 87075; 87077; 87186; 87205; 87636; 93005; 94760; 96365; 99285

== ENCOUNTER → 2022-04-21 | Outpatient (CLI) | payer MEDICARE, OTHER ==
--- NOTE | 2022-04-21 12:09 | BD ---
EXAMINATION TYPE: Axial Bone Density DATE OF EXAM: 04/21/2022 COMPARISON: 06/10/2003 CLINICAL HISTORY: 86 years year old Female. ICD-10 CODE: M810 AGE RELATED OSTEOPOROSIS Height: 65 IN Weight: 275 LBS RISK FACTORS HISTORY OF: Surgery to Spine: L SPINE NOV 2019 Active: NO PT IN WHEELCHAIR Diet low in dairy products/other sources of calcium: YES Postmenopausal woman: AGE 56 MEDICATIONS: Osteoporosis Medications: NOT NOW Which medication: Fosamax How Lon YEARS Additional Medications: BLOOD PRESSURE MEDS, ELIQUIS, METFORMIN, POTASSIUM, SIMVASTATIN, TRULICITY, D IABETES MEDS, EXAM MEASUREMENTS: Bone mineral densitometry was performed using the [employer] System. Bone mineral density about the L Wrist (g/cm2): 0.591 T Score values are as follows: -----Dist. R+U: -0.3 -----Prox. R+U: -3.3 -----Radius total: -1.5 Bone mineral density has: Decreased -36.8% since study of: 06/10/2003 IMPRESSION: Osteoporosis (T Score less than -2.5). There is increased fracture risk and therapy is usually indicated based on age. Re-Screen 1-2 years. NOTE: T-SCORE=SD OF THE YOUNG ADULT MEAN.
--- NOTE | 2022-04-22 18:53 | MM ---
Reason for Exam: Screening (asymptomatic). Last mammogram was performed 3 year(s) and 8 month(s) ago. Patient History: Menarche at age 14. First Full-Term at age 23. Postmenopausal. 1981, Benign Excisional Biopsy on the left side. Risk Values: Nehla 5 year model risk: 1.5%. NCI Lifetime model risk: 1.7%. Prior Study Comparison: 08/30/2016 Bilateral Diagnostic Mammogram, [facility]. 09/05/2017 Bilateral Screening Mammogram, [facility]. 09/07/2018 Bilateral Screening Mammogram, [facility]. Tissue Density: There are scattered fibroglandular densities. Findings: Analyzed By CAD. Benign oil cyst calcification 12:00 breast. Benign vascular calcifications on both sides. Increasing grouped and regional microcalcifications 3:00 left breast at a middle depth likely developing secretory calcifications. Six-month follow-up recommended to reassess these calcifications. Otherwise, no significant change. Overall Assessment: Probably benign, BI-RAD 3 Management: Diagnostic Mammogram of the left breast in 6 months. 6 month follow-up diagnostic left breast mammogram for suspected developing benign, secretory calcifications. Patient should continue monthly self breast exams. This exam should not preclude additional follow-up of suspicious palpable abnormalities. Electronically signed and approved by: Mason Mccabe M.D. Radiologist
== END | disposition home or self-care (01) ==
LOC: RADBDWWP 10:55
PROVIDERS: ATTEND Internal Medicine
DX: Z12.31 Encounter for screening mammogram for malignant neoplasm of breast (principal); M81.0 Age-related osteoporosis without current pathological fracture; Z78.0 Asymptomatic menopausal state
CPT/HCPCS: 77063; 77067; 77080

== ENCOUNTER 2023-11-30 11:33 | Inpatient (IN) | payer MEDICARE, OTHER ==
--- NOTE | 2023-11-30 11:45 | ED ---
General Adult HPI - General Stated complaint: CHAYA, Covid + Time Seen by Provider: 11/30/23 11:40 - History of Present Illness Initial comments: Dictation was produced using [employer] dictation software. please excuse any grammatical, word or spelling errors. Chief Complaint: 88-year-old female multiple comorbidities presents to emergency prior for dyspnea History of Present Illness: Patient is an 88-year-old female she is currently a resident at a [facility]. Patient has tested positive COVID-19 several days ago. She's been trying to recover however has not been improving. She is noted by an nursing staff that she is been having difficulty in breathing. She has history of heart failure. Patient has been bed bound for most of the last several days. She has multiple comorbidities. She her primary complaint is that she is feeling really weak. EMS supervise history of present illness states that she had mottled appearing lower extremities. She is also hypoxic and placed on supplemental oxygen. She worse home O2. She is also had a productive cough. The ROS documented in this emergency department record has been reviewed and confirmed by me. Those systems with pertinent positive or negative responses stein ve been documented in the HPI. All other systems are other negative and/or noncontributory. - Related Data Home Medications Medication Instructions Recorded Confirmed Simvastatin [Zocor] 10 mg PO HS 08/25/17 11/30/23 metFORMIN HCL [Glucophage] 1,000 mg PO BID@0800,1600 08/25/17 11/30/23 Potassium Chloride [Klor-Con 20] 20 meq PO BID@0800,1600 08/19/19 11/30/23 Apixaban [Eliquis] 5 mg PO BID@0800,1600 12/13/19 11/30/23 Furosemide [Lasix] 80 mg PO BID@0800,1600 07/01/21 11/30/23 Empagliflozin [Jardiance] 10 mg PO DAILY@0800 01/21/22 11/30/23 Dulaglutide [Trulicity] 1.5 mg SQ FR 01/12/23 11/30/23 Acetaminophen [Tylenol] 650 mg PO Q4H PRN 11/30/23 11/30/23 Ascorbic Acid [Vitamin C] 500 mg PO DAILY@0800 11/30/23 11/30/23 Cholecalciferol [Vitamin D3 (25 75 mcg PO DAILY 11/30/23 11/30/23 Mcg = 1000 Iu)] Ibuprofen [Motrin] 600 mg PO Q6H PRN 11/30/23 11/30/23 Magnesium Oxide [Mag-Ox] 250 mg PO BID@0800,1600 11/30/23 11/30/23 Melatonin 3 mg PO HS 11/30/23 11/30/23 Metoclopramide HCl [Reglan] 5 mg PO AC-TID 11/30/23 11/30/23 Metoprolol Tartrate [Lopressor] 25 mg PO BID@0800,1600 11/30/23 11/30/23 Ondansetron [Zofran] 4 mg PO Q6H PRN 11/30/23 11/30/23 Sennosides/Docusate Sodium [Senna 2 tab PO HS 11/30/23 11/30/23 Plus 8.6-50 mg Tablet] Zinc Sulfate [Orazinc] 220 mg PO DAILY@0800 11/30/23 11/30/23 guaiFENesin [guaiFENesin Oral 200 mg PO Q4H PRN 11/30/23 11/30/23 Solution] Allergies Allergy/AdvReac Type Severity Reaction Status Date / Time Penicillins Allergy Rash/Hives Verified 11/30/23 12:55 azithromycin AdvReac Dyspnea & Verified 11/30/23 12:55 nausea ciprofloxacin [From Cipro] AdvReac Dyspnea & Verified 11/30/23 12:55 nausea Review of Systems ROS Statement: Those systems with pertinent positive or pertinent negative responses have been documented in the HPI. ROS Other: All systems not noted in ROS Statement are negative. 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 lt leg gives out wears brace History of Any Multi-Drug Resistant Organisms: MRSA Date of last positivie culture/infection: 01/22/22 MDRO Source:: Left Leg Past Surgical History: Back Surgery, Breast Surgery, Cholecystectomy, Joint Replacement, Orthopedic Surgery Additional Past Surgical History / Comment(s): thelma knee replac; L shoulder replac.; carpel tunnel vaginal duct cyst; benign breast surg; cataracts; retinal repair left eye. BAck surgery, hernia repair Past Anesthesia/Blood Transfusion Reactions: No Reported Reaction Past Psychological History: Depression Smoking Status: Never smoker Past Alcohol Use History: None Reported Past Drug Use History: None Reported - Past Family History Father Family Medical History: Deep Vein Thrombosis (DVT) Son(s) Family Medical History: Deep Vein Thrombosis (DVT) Mother Family Medical History: Cancer Additional Family Medical History / Comment(s): Mother had cancer in her back. Daughter(s) Family Medical History: Blood Disorder Additional Family Medical History / Comment(s): Daughter has MTHFR factor and pt's grandson has lyme factor V and grand daughter has MTHFR. General Exam - General Exam Comments Initial Comments: PHYSICAL EXAM: General Impression: Alert and oriented x3, lethargic HEENT: Normocephalic atraumatic, extra-ocular movements intact, pupils equal and reactive to light bilaterally, dry mucous membranes Cardiovascular: Heart regular rate and rhythm Chest: Diffuse rhonchi with lung auscultation, no retractions, no tachypnea Abdomen: abdomen soft, non-tender, mild diffuse palpatory tenderness, no organomegaly Musculoskeletal: Pulses present and equal in all extremities, 2+ pitting edema to bilateral lower extremities, mild appearance of her distal extremities Motor: no focal deficits noted Neurological: CN II-XII grossly intact, no focal motor or sensory deficits noted Course Vital Signs 11/30/23 11/30/23 11/30/23 11:43 12:30 13:00 Temperature 100.3 F H Pulse Rate 100 106 H 103 H Respiratory 20 28 H 30 H Rate Blood Pressure 130/72 104/49 123/76 O2 Sat by Pulse 89 L 96 95 Oximetry 11/30/23 11/30/23 13:31 14:00 Temperature 100.0 F H Pulse Rate 113 H 108 H Respiratory 34 H 30 H Rate Blood Pressure 137/96 114/67 O2 Sat by Pulse 88 L 95 Oximetry EKG Findings - EKG Comments: EKG Findings:: My EKG interpretation: Ventricular rate 100, A. fib with RVR, QRS 82, QTc 412. no QTC prolongation, no ST or T-wave changes noted. EKG compared to August 15 2023 showing no changes. Overall, this EKG is unremarkable Medical Decision Making - Medical Decision Making Was pt. sent in by a medical professional or institution (, [facility]U, MANAGER CAR, urgent care, hospital, or senior care...) When possible be specific @ -No Did you speak to anyone other than the patient for history (EMS, parent, family, police, friend...)? What history was obtained from this source @ -No Did you review nursing and triage notes (agree or disagree)? Why? @ -I reviewed and agree with nursing and triage notes Were old charts reviewed (outside hosp., previous admission, EMS record, old EKG, old radiological studies, urgent care reports/EKG's, senior care records)? Report findings @ -No old charts were reviewed Differential Diagnosis (chest pain, altered mental status, abdominal pain women, abdominal pain men, vaginal bleeding, musculoskeletal, weakness, fever, dyspnea, syncope, headache, dizziness, GI bleed, back pain, seizure, CVA, palpatations, mental health)? @ -Differential Dyspnea: Coronary syndrome, arrhythmia, tamponade, asthma, COPD, pulmonary embolism, pneumonia, pneumothorax, pulmonary effusion, anaphylaxis, diabetic ketoacidosis, flailed chest, pulmonary contusion, diaphragmatic rupture, anemia, neuromuscular, this is not meant to be an all-inclusive list. EKG interpreted by me (3pts min.). @ -As above X-rays interpreted by me (1pt min.). @ -Chest x-ray suggests heart failure CT interpreted by me (1pt min.). @ -None done U/S interpreted by me (1pt. min.). @ -None done What testing was considered but not performed or refused? (CT, X-rays, U/S, labs)? Why? @ -None What meds were considered but not given or refused? Why? @ -None Did you discuss the management of the patient with other professionals (professionals i.e. , LIU, MANAGER CAR, lab, RT, psych nurse, social security assessor, wire winding machine tender, teacher, physics technical officer, director case management)? Give summary @ -Discussed with hospitalist for admission Was smoking cessation discussed for >3mins.? @ -No Was critical care preformed (if so, how long)? @ -No Were there social determinants of health that impacted care today? How? (Homelessness, low income, unemployed, alcoholism, drug addiction, transportation, low edu. Level, literacy, decrease access to med. care, correction, rehab)? @ -No Was there de-escalation of care discussed even if they declined (Discuss DNR or withdrawal of care, Hospice)? DNR status @ -No What co-morbidities impacted this encounter? (DM, HTN, Smoking, COPD, CAD, Cancer, CVA, ARF, Chemo, Hep., AIDS, mental health diagnosis, sleep apnea, morbid obesity)? @ -None Was patient admitted / discharged? Hospital course, mention meds given and route, prescriptions, significant lab abnormalities, going to OR and other pertinent info. @ -88-year-old female presents to the emergency department for respiratory failure. She has significant comorbidities including CHF and bronchitis. Vital signs upon arrival shows temperature 100.3, 89% on room air. Laboratory evaluation obtained. Leukocytosis 13.0. Coag panel is negative. D-dimer is 1.5. Metabolic panel shows like acidosis 2.5. Troponin negative. Brain natrur etic peptide elevated. Viral testing negative. X-ray suggests heart failure. CTA does not show any large pulmonary emboli and there does appear to be an infiltrate. Patient treated with pneumonia antibiotics. Viral testing is negative. Will be admitted with consultation to cardiology and pulmonology. Undiagnosed new problem with uncertain prognosis? @ -No Drug Therapy requiring intensive monitoring for toxicity (Heparin, Nitro, Insuli n, Cardizem)? @ -No Were any procedures done? @ -No Diagnosis/symptom? Acute, or Chronic, or Acute on Chronic? Uncomplicated (without systemic symptoms) or Complicated (systemic symptoms)? @ -Respiratory failure is multifactorial secondary to CHF and pneumonia Side effects of treatment? @ -No Exacerbation, Progression, or Severe Exacerbation? @ -No Poses a threat to life or bodily function? How? (Chest pain, USA, OR, pneumonia, PE, COPD, DKA, ARF, appy, cholecystitis, CVA, Diverticulitis, Homicidal, Leanne cidal, threat to staff... and all critical care pts) @ -yes - Lab Data Result diagrams: 11/30/23 11:50 11/30/23 11:50 Lab Results 11/30/23 11/30/23 11/30/23 Range/Units 11:50 11:50 11:50 WBC 13.0 H (3.8-10.6) k/uL RBC 3.73 L (3.80-5.40) m/uL Hgb 10.5 L (11.4-16.0) gm/dL Hct 33.6 L (34.0-46.0) % MCV 90.1 (80.0-100.0) fL MCH 28.2 (25.0-35.0) pg MCHC 31.3 (31.0-37.0) g/dL RDW 19.3 H (11.5-15.5) % Plt Count 221 (150-450) k/uL MPV 10.3 Neutrophils % 87 % Lymphocytes % 6 % Monocytes % 5 % Eosinophils % 1 % Basophils % 0 % Neutrophils # 11.3 H (1.3-7.7) k/uL Lymphocytes # 0.8 L (1.0-4.8) k/uL Monocytes # 0.6 (0-1.0) k/uL Eosinophils # 0.2 (0-0.7) k/uL Basophils # 0.0 (0-0.2) k/uL Hypochromasia Marked Poikilocytosis Slight Anisocytosis Slight PT 11.9 (10.0-12.5) sec INR 1.1 (<1.2) APTT 27.9 (22.0-30.0) sec D-Dimer 1.50 H (<0.60) mg/L FEU Sodium 140 (137-145) mmol/L Potassium 5.1 (3.5-5.1) mmol/L Chloride 102 (98-107) mmol/L Carbon Dioxide 27 (22-30) mmol/L Anion Gap 11 mmol/L BUN 27 H (7-17) mg/dL Creatinine 1.34 H (0.52-1.04) mg/dL Est GFR (CKD-EPI)AfAm 41 (>60 ml/min/1.73 sqM) Est GFR (CKD-EPI)NonAf 36 (>60 ml/min/1.73 sqM) Glucose 141 H (74-99) mg/dL Plasma Lactic Acid Afshin (0.7-2.0) mmol/L Calcium 9.1 (8.4-10.2) mg/dL Magnesium 2.4 H (1.6-2.3) mg/dL Total Bilirubin 1.0 (0.2-1.3) mg/dL AST 25 (14-36) U/L ALT 13 (4-34) U/L Alkaline Phosphatase 91 (38-126) U/L Troponin I (0.000-0.034) ng/mL NT-Pro-B Natriuret Pep 5140 pg/mL Total Protein 7.4 (6.3-8.2) g/dL Albumin 3.6 (3.5-5.0) g/dL Influenza Type A (PCR) (Not Detectd) Influenza Type B (PCR) (Not Detectd) RSV (PCR) (Not Detectd) SARS-CoV-2 (PCR) (Not Detectd) 11/30/23 11/30/23 11/30/23 Range/Units 11:50 11:50 11:50 WBC (3.8-10.6) k/uL RBC (3.80-5.40) m/uL Hgb (11.4-16.0) gm/dL Hct (34.0-46.0) % MCV (80.0-100.0) fL MCH (25.0-35.0) pg MCHC (31.0-37.0) g/dL RDW (11.5-15.5) % Plt Count (150-450) k/uL MPV Neutrophils % % Lymphocytes % % Monocytes % % Eosinophils % % Basophils % % Neutrophils # (1.3-7.7) k/uL Lymphocytes # (1.0-4.8) k/uL Monocytes # (0-1.0) k/uL Eosinophils # (0-0.7) k/uL Basophils # (0-0.2) k/uL Hypochromasia Poikilocytosis Anisocytosis PT (10.0-12.5) sec INR (<1.2) APTT (22.0-30.0) sec D-Dimer (<0.60) mg/L FEU Sodium (137-145) mmol/L Potassium (3.5-5.1) mmol/L Chloride (98-107) mmol/L Carbon Dioxide (22-30) mmol/L Anion Gap mmol/L BUN (7-17) mg/dL Creatinine (0.52-1.04) mg/dL Est GFR (CKD-EPI)AfAm (>60 ml/min/1.73 sqM) Est GFR (CKD-EPI)NonAf (>60 ml/min/1.73 sqM) Glucose (74-99) mg/dL Plasma Lactic Acid Afshin 2.5 H* (0.7-2.0) mmol/L Calcium (8.4-10.2) mg/dL Magnesium (1.6-2.3) mg/dL Total Bilirubin (0.2-1.3) mg/dL AST (14-36) U/L ALT (4-34) U/L Alkaline Phosphatase (38-126) U/L Troponin I <0.012 (0.000-0.034) ng/mL NT-Pro-B Natriuret Pep pg/mL Total Protein (6.3-8.2) g/dL Albumin (3.5-5.0) g/dL Influenza Type A (PCR) Not Detected (Not Detectd) Influenza Type B (PCR) Not Detected (Not Detectd) RSV (PCR) Not Detected (Not Detectd) SARS-CoV-2 (PCR) Not Detected (Not Detectd) Disposition Clinical Impression: Respiratory failure Disposition: ADMITTED IP TO THIS HOSP Condition: Fair Referrals: Kinjal Liu MD [Primary Care Provider] - 1-2 days Decision Time: 14:44
[2023-11-30 12:13] LABS: Anisocytosis Slight; Basophils % (A) 0 %; Eosinophils # (A) 0.2 k/uL (0-0.7); Eosinophils % (A) 1 %; HCT 33.6 % (34.0-46.0); HGB 10.5 gm/dL (11.4-16.0); Hypochromasia Marked; Lymphocytes # (A) 0.8 k/uL (1.0-4.8); Lymphocytes % (A) 6 %; MCH 28.2 pg (25.0-35.0); MCHC 31.3 g/dL (31.0-37.0); MCV 90.1 fL (80.0-100.0); Mean Platelet Volume 10.3; Monocytes # (A) 0.6 k/uL (0-1.0); Monocytes % (A) 5 %; Neutrophils # (A) 11.3 k/uL (1.3-7.7); Neutrophils % (A) 87 %; Platelet Count 221 k/uL (150-450); Poikilocytosis Slight; RBC 3.73 m/uL (3.80-5.40); RDW 19.3 % (11.5-15.5)
[2023-11-30 12:36] LABS: INR 1.1 (<1.2); Partial Thromboplastin Time 27.9 sec (22.0-30.0); Prothrombin Time 11.9 sec (10.0-12.5)
[2023-11-30 12:37] LABS: ALT 13 U/L (4-34); AST 25 U/L (14-36); African American GFR (CKD) 41 (>60 ml/min/1.73 sqM); Albumin 3.6 g/dL (3.5-5.0); Alkaline Phosphatase 91 U/L (38-126); Anion Gap 11 mmol/L; Blood Urea Nitrogen 27 mg/dL (7-17); Calcium 9.1 mg/dL (8.4-10.2); Carbon Dioxide 27 mmol/L (22-30); Chloride 102 mmol/L (98-107); Glucose 141 mg/dL (74-99); Magnesium 2.4 mg/dL (1.6-2.3); Non-African American GFR(CKD) 36 (>60 ml/min/1.73 sqM); Potassium 5.1 mmol/L (3.5-5.1); Sodium 140 mmol/L (137-145); Total Protein 7.4 g/dL (6.3-8.2)
[2023-11-30 12:46] LABS: NT-Pro-B-Type Natriuretic Pept 5140 pg/mL
--- NOTE | 2023-11-30 13:03 | XR ---
EXAMINATION TYPE: XR chest 2V DATE OF EXAM: 11/30/2023 COMPARISON: 01/12/2023 HISTORY: 88 year-old female shortness of breath, cough, dyspnea TECHNIQUE: AP and lateral views FINDINGS: Left shoulder arthroplasty. Narrowing of the subacromial space on the right with degenerative change of the glenohumeral joint suggesting chronic rotator cuff arthropathy. Heart mildly enlarged. Diffus e interstitial density. Lateral view shows a [id number] effusion on the left. IMPRESSION: 1. Correlate for CHF with pulmonary vascular congestion. 2. [id number] left pleural effusion with adjacent atelectasis and/or consolidation. 3. Rotator cuff arthropathy on the right.
--- NOTE | 2023-11-30 14:08 | CT ---
EXAMINATION TYPE: CT angio chest DATE OF EXAM: 11/30/2023 COMPARISON: 12/14/2019 HISTORY: 88-year-old female shortness of breath, positive d-dimer, recent history of COVID. TECHNIQUE: Contiguous axial scanning of the chest after the administration of 80 mL of Isovue 370. C oronal/sagittal MIP reconstructions performed. CT DLP: 1211.2mGycm. Automatic exposure control utilized for a dose reduction. FINDINGS: The heart is moderately enlarged. Increased compared to 2019. Three-vessel coronary artery calcificat ions are present. No pericardial. There is prominent reflux of contrast into the veins. Moderate aortic valvular calcifications. Ectatic ascending aorta 3.8 cm. Bovine configuration to the aortic arch. Large-caliber right kidneys measuring up to 3.5 cm each suggesting underlying pulmonary arterial hype rtension. While there is satisfactory opacification of the pulmonary arterial system, there is excessive breath ing motion artifact limiting the assessment. No large central or definite lobar branch pulmonary embo minal. Many of the segmental and more distal arterial branches are very limited and nondiagnostic. A few scattered prominent to borderline and mildly enlarged mediastinal lymph nodes measuring up to 1 .3 cm right paratracheal and 1.1 cm lower right paratracheal. The esophagus appears distended with air-fluid level.. Small hiatal hernia suggested. Airway flattening of the byron and partial flattening of the mainstem bronchi and trachea. Mild emphysematous change. Small left pleural effusion with patchy left basilar opacity. Some underly ing chronic interstitial changes of the lung bases and some chronic pleural calcification of the righ t base. The degree of breathing motion artifact limits detailed assessment of the lung parenchyma. Partially visualized 2.1 cm cyst of the upper pole left kidney. Underlying 1.6 cm low-density nodule right adrenal gland redemonstrated suggesting a lipid rich adrenal adenoma. Bones: Moderate spondylotic changes especially mid to lower thoracic spine. IMPRESSION: 1. The patient is breathing during the scan. This limits assessment for pulmonary embolus. No obvious large central or definite lobar branch pulmonary embolus. Many of the segmental and more distal bran ches are very limited or nondiagnostic and emboli in these locations cannot be adequately excluded on the basis of this exam. 2. Cardiomegaly with prominent refluxing contrast into the hepatic veins suggesting elevated cardiac pressures. Pulmonary arterial hypertension and small left pleural effusion. Correlate for mild CHF. 3. Additional patchy opacity at the left base could represent atelectasis or developing infiltrate ve rsus patchy pulmonary edema. 4. There may be underlying tracheobronchomalacia particularly at the byron. 5. Distended esophagus with layering fluid and small hiatal hernia. Correlate for any significant gas troesophageal reflux disease in this patient. Direct visualization as clinically indicated.
[2023-11-30] MEDS ORDERED: AZITHROMYCIN 500 MG in SODIUM CHLORIDE 0.9% 250 ML IVPB STA (14:29)
[2023-11-30] MEDS ORDERED: cefTRIAXone IN SWFI 1,000 MG/10 ML SYRINGE IVP STA (14:29)
[2023-11-30] MEDS ORDERED: NALOXONE 0.4 MG/ML 1 ML VIAL IV PRN (14:37)
[2023-11-30] MEDS ORDERED: ACETAMINOPHEN TAB 325 MG TAB PO PRN ×2 (14:37→19:30)
[2023-11-30] MEDS: SODIUM CHLORIDE 0.9% 1,000 ML IV SCH (14:46)
[2023-11-30] MEDS ORDERED: diphenhydrAMINE 50 MG/ML 1 ML VIAL IVP STA (15:01)
[2023-11-30] MEDS ORDERED: guaiFENesin SYRUP 100MG/5ML 200 MG/10 ML CUP PO PRN (19:30)
[2023-11-30] MEDS ORDERED: ONDANSETRON 4 MG TAB PO PRN (19:30)
[2023-11-30] MEDS ORDERED: VANCOMYCIN 1,000 MG in SODIUM CHLORIDE 0.9% 250 ML IVPB STA (19:33)
[2023-11-30] MEDS ORDERED: AZTREONAM 2 GM in SODIUM CHLORIDE 0.9% 100 ML IVPB SCH (19:45)
[2023-11-30] MEDS ORDERED: VANCOMYCIN IV PER PHARMACY 1 EACH MISC MISCELLANE PRN (19:45)
[2023-11-30] MEDS ORDERED: VANCOMYCIN 1,750 MG in SODIUM CHLORIDE 0.9% 500 ML 500 ML IVPB ONE (19:45)
[2023-11-30 21:30] LABS: Glucose,Whole Blood 155 mg/dL (70-110)
[2023-11-30] MEDS: FUROSEMIDE 10 MG/ML 10 ML VIAL IV SCH (21:59)
[2023-11-30] MEDS: AZTREONAM 1 GM in SODIUM CHLORIDE 0.9% 50 ML IVPB SCH (21:59)
[2023-11-30] MEDS: SENNOSIDES-DOCUSATE SODIUM 1 EACH TAB PO SCH (22:00)
[2023-11-30] MEDS: ATORVASTATIN 10 MG TAB PO SCH (22:00)
[2023-11-30] MEDS: IPRATROPIUM-ALBUTEROL 3 ML NEB INHALATION SCH (22:21)
[2023-11-30] MEDS: MELATONIN 3 MG TABLET PO SCH (23:42)
[2023-12-01] MEDS: guaiFENesin SYRUP 100MG/5ML 200 MG/10 ML CUP PO SCH ×6 (01:28→20:51)
[2023-12-01 01:37] LABS: Appearance,Urine Cloudy (Clear); Bacteria,Urine Rare /hpf; Bilirubin,Urine Negative (Negative); Blood,Urine Small (Negative); Color,Urine Colorless; Glucose,Urine (UA) 3+ (Negative); Ketones,Urine Negative (Negative); Leukocyte Esterase,Urine Large (Negative); Nitrite,Urine Negative (Negative); PH, Urine 6.5 (5.0-8.0); Protein,Urine Trace (Negative); RBC,Urine 7 /hpf (0-5); Specific Gravity,Urine 1.018 (1.001-1.035); Squamous Epithelial Cell,Urine 1 /hpf (0-4); Urobilinogen,Urine <2.0 mg/dL (<2.0); WBC,Urine 162 /hpf (0-5)
[2023-12-01 04:08] LABS: Anisocytosis Slight; Basophils % (A) 0 %; Eosinophils # (A) 0.1 k/uL (0-0.7); Eosinophils % (A) 0 %; HCT 29.3 % (34.0-46.0); HGB 9.1 gm/dL (11.4-16.0); Hypochromasia Marked; Lymphocytes # (A) 0.8 k/uL (1.0-4.8); Lymphocytes % (A) 8 %; MCH 28.1 pg (25.0-35.0); MCHC 31.1 g/dL (31.0-37.0); MCV 90.4 fL (80.0-100.0); Mean Platelet Volume 10.2; Monocytes # (A) 0.4 k/uL (0-1.0); Monocytes % (A) 4 %; Neutrophils # (A) 8.6 k/uL (1.3-7.7); Neutrophils % (A) 86 %; Platelet Count 186 k/uL (150-450); Poikilocytosis Slight; RBC 3.24 m/uL (3.80-5.40); RDW 19.2 % (11.5-15.5); WBC 10.1 k/uL (3.8-10.6)
[2023-12-01 04:20] LABS: ALT 12 U/L (4-34); AST 18 U/L (14-36); African American GFR (CKD) 37 (>60 ml/min/1.73 sqM); Alkaline Phosphatase 81 U/L (38-126); Anion Gap 10 mmol/L; Blood Urea Nitrogen 27 mg/dL (7-17); Calcium 8.3 mg/dL (8.4-10.2); Carbon Dioxide 26 mmol/L (22-30); Chloride 104 mmol/L (98-107); Glucose 133 mg/dL (74-99); Non-African American GFR(CKD) 32 (>60 ml/min/1.73 sqM); Potassium 4.6 mmol/L (3.5-5.1); Sodium 140 mmol/L (137-145); Total Bilirubin 0.8 mg/dL (0.2-1.3); Total Protein 6.3 g/dL (6.3-8.2)
--- NOTE | 2023-12-01 05:03 | P.CNPUL ---
History of Present Illness Consult date: 12/01/23 Requesting physician: Vincenzo Patton Reason for consult: dyspnea, pneumonia Chief complaint: Shortness of breath and weakness History of present illness: I am seeing this patient in consultation today 12/01/2023 after she was brought in from [facility]. Apparently she tested positive for COVID-19 last week. Since then, she's had difficulty in breathing and weakness. Patient is a 88-year-old white female with past medical history significant for congestive heart failure, chronic lower extremity swelling and prior cellulitis, atrial fibrillation, PE/DVT, diabetes mellitus, hyperlipidema, hypertension, among other things. Patient resides at [facility]. Apparently, she tested positive for COVID-19 last week. She did receive her original COVID-19 vaccination, but without any booster injections. On arrival to the emergency room, she was noted to be short of breath. Requiring more supplemental oxygen than baseline. She was also mildly febrile with a T-max of 100.3F. Interestingly, the patient tested negative for COVID-19 at our facility. Chest x-ray shows cardiomegaly, pulmonary vascular congestion, and probable bilateral small pleural effusions. There is a possible developing left lower lobe infiltrate or atelectasis. D-dimer was elevated. Follow-up chest CTA does not show any obvious large central pulmonary embolism, breathing artifact limits e xam. There is cardiomegaly with prominent refluxing contrast and hepatic veins suggestive of failure. There is pulmonary arterial hypertension and small left pleural effusion. There is an additional patchy opacities at the left base which could represent atelectasis or developing pulmonary infiltrate. There may be underlying tracheobronchial malacia. CBC on arrival: WBC count 13, hemoglobin 10.5, hematocrit 33.6, platelets 221. BMP on arrival: Sodium 140, potassium 5.1, chloride 102, serum bicarb 27, BUN 27, creatinine 1.34, glucose 141. Lactic acid level peaked at 3.3. Patient is empirically covered on aztreonam and vancomycin. She also has lower extremity swelling. Left greater than right. Left leg is erythemic. She has history of cellulitis of this extremity. NT proBNP was elevated at 5140. Currently the patient is being diuresed with Lasix 60 mg IV every 12 hours. Patient is currently sitting up in bed, on 5 L/m nasal cannula, in no acute distress. She is hard of hearing. She is not in any respiratory distress, but has a persistent dry nonproductive cough. Patient states that his cough was productive earlier in the week, producing creamy sputum. Admits subjective fevers last week when she was diagnosed with COVID-19. Denies any chest pain, hemoptysis. She has been very weak. Patient is mostly bedbound/wheelchair bound while at [facility]. Vital signs are stable. Review of Systems REVIEW OF SYSTEMS: CONSTITUTIONAL: Denies any recent significant weight loss or weight gain. EYES: Denies change in vision. EARS, NOSE, MOUTH, THROAT: Denies headaches, denies sore throat. CARDIOVASCULAR: Denies chest pain, palpitations or syncopal episodes. RESPIRATORY: See HPI GASTROINTESTINAL: Denies change in appetite, abdominal pain, nausea and vomiting, or diarrhea GENITOURINARY: Denies hematuria, denies infections. MUSKULOSKELETAL: Denies pain, admits chronic lower extremity swelling. INTEGUMENTARY: Denies rash, denies eczema. Admits history of left leg/foot infection NEUROLOGICAL: Denies recent memory loss, no recent seizure activity. PSYCHIATRIC: Denies anxiety, denies depression. HEMATOLOGIC/LYMPHATIC: Denies anemia, denies enlarged lymph node Past Medical History Past Medical History: Blood Disorder, Diabetes Mellitus, Deep Vein Thrombosis (DVT), GERD/Reflux, Hyperlipidemia, Hypertension, Osteoarthritis (OA), Pneumonia, Pulmonary Embolus (PE), Renal Disease Additional Past Medical History / Comment(s): Hx of PE & DVT, mass on right kidney, cellulitis BLE, falls at home, spinal stenosis status post laminectomy. lt leg gives out wears brace History of Any Multi-Drug Resistant Organisms: MRSA Date of last positivie culture/infection: 01/22/22 MDRO Source:: Left Leg Past Surgical History: Back Surgery, Breast Surgery, Cholecystectomy, Joint Replacement, Orthopedic Surgery Additional Past Surgical History / Comment(s): thelma knee replac; L shoulder replac.; carpel tunnel vaginal duct cyst; benign breast surg; cataracts; retinal repair left eye. BAck surgery, hernia repair Past Anesthesia/Blood Transfusion Reactions: No Reported Reaction Past Psychological History: Depression Smoking Status: Never smoker Past Alcohol Use History: None Reported Past Drug Use History: None Reported - Past Family History Father Family Medical History: Deep Vein Thrombosis (DVT) Son(s) Family Medical History: Deep Vein Thrombosis (DVT) Mother Family Medical History: Cancer Additional Family Medical History / Comment(s): Mother had cancer in her back. Daughter(s) Family Medical History: Blood Disorder Additional Family Medical History / Comment(s): Daughter has MTHFR factor and pt's grandson has lyme factor V and grand daughter has MTHFR. Medications and Allergies Home Medications Medication Instructions Recorded Confirmed Type Simvastatin [Zocor] 10 mg PO HS 08/25/17 11/30/23 History metFORMIN HCL [Glucophage] 1,000 mg PO BID@0800,1600 08/25/17 11/30/23 History Potassium Chloride [Klor-Con 20] 20 meq PO BID@0800,1600 08/19/19 11/30/23 History Apixaban [Eliquis] 5 mg PO BID@0800,1600 12/13/19 11/30/23 History Furosemide [Lasix] 80 mg PO BID@0800,1600 07/01/21 11/30/23 History Empagliflozin [Jardiance] 10 mg PO DAILY@0800 01/21/22 11/30/23 History Dulaglutide [Trulicity] 1.5 mg SQ FR 01/12/23 11/30/23 History Acetaminophen [Tylenol] 650 mg PO Q4H PRN 11/30/23 11/30/23 History Ascorbic Acid [Vitamin C] 500 mg PO DAILY@0800 11/30/23 11/30/23 History Cholecalciferol [Vitamin D3 (25 75 mcg PO DAILY 11/30/23 11/30/23 History Mcg = 1000 Iu)] Ibuprofen [Motrin] 600 mg PO Q6H PRN 11/30/23 11/30/23 History Magnesium Oxide [Mag-Ox] 250 mg PO BID@0800,1600 11/30/23 11/30/23 History Melatonin 3 mg PO HS 11/30/23 11/30/23 History Metoclopramide HCl [Reglan] 5 mg PO AC-TID 11/30/23 11/30/23 History Metoprolol Tartrate [Lopressor] 25 mg PO BID@0800,1600 11/30/23 11/30/23 History Ondansetron [Zofran] 4 mg PO Q6H PRN 11/30/23 11/30/23 History Sennosides/Docusate Sodium [Senna 2 tab PO HS 11/30/23 11/30/23 History Plus 8.6-50 mg Tablet] Zinc Sulfate [Orazinc] 220 mg PO DAILY@0800 11/30/23 11/30/23 History guaiFENesin [guaiFENesin Oral 200 mg PO Q4H PRN 11/30/23 11/30/23 History Solution] Allergies Allergy/AdvReac Type Severity Reaction Status Date / Time Penicillins Allergy Rash/Hives Verified 11/30/23 12:55 azithromycin AdvReac Dyspnea & Verified 11/30/23 12:55 nausea ciprofloxacin [From Cipro] AdvReac Dyspnea & Verified 11/30/23 12:55 nausea Physical Exam Vitals: Vital Signs Temp Pulse Resp BP Pulse Ox 11/30/23 22:31 82 11/30/23 22:26 97 11/30/23 22:21 82 11/30/23 20:12 98.7 F 89 16 105/64 95 11/30/23 19:00 91 24 104/81 96 11/30/23 18:00 90 24 107/66 98 11/30/23 17:00 92 24 111/74 94 L 11/30/23 16:00 109 H 24 137/69 96 11/30/23 15:00 98 20 104/56 97 11/30/23 14:00 100.0 F H 108 H 30 H 114/67 95 11/30/23 13:31 113 H 34 H 137/96 88 L 11/30/23 13:00 103 H 30 H 123/76 95 11/30/23 12:30 106 H 28 H 104/49 96 11/30/23 11:43 100.3 F H 100 20 130/72 89 L Intake and Output 11/30/23 11/30/23 12/01/23 14:59 22:59 06:59 Other: Weight 115.212 kg GENERAL EXAM: Alert, 88-year-old white female who is morbidly obese, comfortable in no apparent distress. HEAD: Normocephalic and atraumatic EYES: Normal reaction of pupils, equal size. NOSE: Clear with pink turbinates. THROAT: No erythema or exudates. NECK: No masses, no JVD. CHEST: No chest wall deformity. LUNGS: Equal air entry with expiratory wheezes heard throughout and a persistent dry nonproductive cough. On 5 L per minute nasal cannula. No conversational dyspnea or accessory muscle use.. CVS: S1 and S2 normal with no audible murmur, regular rhythm. No extra heart sounds ABDOMEN: Obese abdomen, no hepatosplenomegaly, active bowel sounds, no guarding or rigidity. SPINE: No scoliosis or deformity SKIN: Left lower extremity erythema and edema CENTRAL NERVOUS SYSTEM: No focal deficits, tone is normal in all 4 extremities. EXTREMITIES: Bilateral lower extremity edema, left greater than right. No clubbing, or cyanosis. Peripheral pulses are intact. Results - Laboratory Findings CBC and BMP: 12/01/23 03:40 12/01/23 03:34 PT/INR, D-dimer PT 11.9 sec (10.0-12.5) 11/30/23 11:50 INR 1.1 (<1.2) 11/30/23 11:50 D-Dimer 1.50 mg/L FEU (<0.60) H 11/30/23 11:50 Abnormal lab findings: Abnormal Labs 11/30/23 11/30/23 11/30/23 11:50 11:50 11:50 WBC 13.0 H RBC 3.73 L Hgb 10.5 L Hct 33.6 L RDW 19.3 H Neutrophils # 11.3 H Lymphocytes # 0.8 L D-Dimer 1.50 H BUN 27 H Creatinine 1.34 H Glucose 141 H POC Glucose (mg/dL) Plasma Lactic Acid Afshin Magnesium 2.4 H Urine Appearance Urine Protein Urine Glucose (UA) Urine Blood Ur Leukocyte Esterase Urine RBC Urine WBC Urine Bacteria 11/30/23 11/30/23 11/30/23 11:50 15:16 20:52 WBC RBC Hgb Hct RDW Neutrophils # Lymphocytes # D-Dimer BUN Creatinine Glucose POC Glucose (mg/dL) Plasma Lactic Acid Afshin 2.5 H* 2.4 H* 3.3 H* Magnesium Urine Appearance Urine Protein Urine Glucose (UA) Urine Blood Ur Leukocyte Esterase Urine RBC Urine WBC Urine Bacteria 11/30/23 11/30/23 12/01/23 21:28 23:54 01:07 WBC RBC Hgb Hct RDW Neutrophils # Lymphocytes # D-Dimer BUN Creatinine Glucose POC Glucose (mg/dL) 155 H Plasma Lactic Acid Afshin 2.6 H* Magnesium Urine Appearance Cloudy H Urine Protein Trace H Urine Glucose (UA) 3+ H Urine Blood Small H Ur Leukocyte Esterase Large H Urine RBC 7 H Urine WBC 162 H Urine Bacteria Rare H - Diagnostic Findings Chest x-ray: image reviewed Assessment and Plan Assessment: Acute on chronic hypoxemic respiratory failure, likely multifactorial, secondary to acute on chronic diastolic CHF exacerbation and possible left lower lobe healthcare associated pneumonia. chest CTA does not show any obvious large central pulmonary embolism, breathing artifact limits exam. There is cardiomegaly with prominent refluxing contrast and hepatic veins suggestive of failure. There is pulmonary arterial hypertension and small left pleural effusion. There is an additional patchy opacities at the left base which could represent atelectasis or developing pulmonary infiltrate. There may be underlying tracheobronchial malacia. Recent history of acute COVID-19 infection, PCR negative on admission Leukocytosis Acute kidney injury Chronic lower extremity edema and cellulitis History of osteomyelitis, left great toe diabetes mellitus, type II History DVT/PE Paroxysmal atrial fibrillation, with controlled ventricular response, chronically anticoagulated on Eliquis History of hyperlipidemia History of hypertension Morbid obesity, with a BMI of 42.3 kg/m Plan: Patient's medications, labs, imaging reviewed. Continue supplemental oxygen Continue broad-spectrum antibiotics Check procalcitonin level. Blood cultures are pending. Cough is persistent and nonproductive at this point, Robitussin was added Negative for influenza, RSV, COVID-19 on this admission Patient is being diuresed with Lasix 60 mg twice a day. Eliquis has been restarted. We will continue to follow, and further recommendations are forthcoming I have personally seen and examined the patient, performed the documentation and the assessment and plan as written. Number of minutes spent on the visit:20 I Time with Patient: Greater than 30
[2023-12-01 06:03] LABS: Glucose,Whole Blood 142 mg/dL (70-110)
[2023-12-01] MEDS: AZTREONAM 1 GM in SODIUM CHLORIDE 0.9% 50 ML IVPB SCH ×3 (06:43→20:53)
[2023-12-01] MEDS: METOCLOPRAMIDE 5 MG TAB PO SCH ×3 (06:43→17:11)
[2023-12-01] MEDS: IPRATROPIUM-ALBUTEROL 3 ML NEB INHALATION SCH ×4 (08:58→21:20)
[2023-12-01] MEDS: FUROSEMIDE 10 MG/ML 10 ML VIAL IV SCH (09:25)
[2023-12-01] MEDS: APIXABAN 5 MG TAB PO SCH ×2 (09:26→17:11)
[2023-12-01] MEDS: ZINC SULFATE 220 MG CAP PO SCH (09:26)
[2023-12-01] MEDS: ASCORBIC ACID 500 MG TAB PO SCH (09:26)
[2023-12-01] MEDS: MAGNESIUM OXIDE 400 MG TAB PO SCH ×2 (09:26→17:11)
[2023-12-01] MEDS: METOPROLOL TARTRATE 25 MG TAB PO SCH ×2 (09:26→17:11)
[2023-12-01] MEDS: POTASSIUM CHLORIDE ER 20 MEQ TAB.ER PO SCH ×2 (09:26→17:11)
[2023-12-01] MEDS: DAPAGLIFLOZIN PROPANEDIOL 5 MG TABLET PO SCH (09:26)
[2023-12-01] MEDS: CHOLECALCIFEROL 25 MCG (1000 IU) TABLET PO SCH (09:26)
[2023-12-01 11:39] LABS: Glucose,Whole Blood 175 mg/dL (70-110)
--- NOTE | 2023-12-01 11:45 | P.CRDCN ---
History of Present Illness History of present illness: HISTORY OF PRESENT ILLNESS: This is a 88-year-old female with a past medical history significant for persistent atrial fibrillation, minimal coronary artery disease, valvular heart disease, congestive heart failure, hypertension, and hyperlipidemia. Patient follows in the office with Dr. Delacruz. We have been asked to see the patient in consultation for congestive heart failure. Patient examined at the bedside. Patient presented to the hospital with a chief complaint of cough, shortness of breath, and increased lower extremity edema. She denies any chest pain or pressure. She denies any palpitations. Denies nausea or vomiting. Patient was found to be in acute congestive heart failure was started on IV Lasix. * EKG reveals atrial fibrillation with controlled ventricular rate * Chest xray correlate for CHF with pulmonary vascular congestion. Small to m oderate left pleural effusion with adjacent atelectasis and/or consolidation. * Chest CT: Limited assessment for pulmonary embolism. No obvious large central or definite lobar branch pulmonary embolus. Cardiomegaly with prominent refluxing contrast into the hepatic veins suggesting elevated cardiac pressures. Additional patchy opacity of the left base could represent atelectasis or developing infiltrate versus patchy pulmonary edema. * Laboratory data: Troponin negative 1. ProBNP 5140. * Most recent echocardiogram obtained in August 2021 revealed normal ejection fraction, moderate ME, mild TR, mild MR, moderate , and mild AR * Cardiac catheterization history: May 2010 revealing minimal CAD. REVIEW OF SYSTEMS: At the time of my exam: CONSTITUTIONAL: Denies fever or chills. HEENT: Denies blurred vision, vision changes, or eye pain. Denies hemoptysis CARDIOVASCULAR: Denies chest pain. Denies orthopnea. Denies PND. Denies palpitations RESPIRATORY: + shortness of breath. GASTROINTESTINAL: Denies abdominal pain. Denies nausea or vomiting. HEMATOLOGIC: Denies bleeding disorders. GENITOURINARY: Denies any blood in urine. SKIN: Denies pruitis. Denies rash. PHYSICAL EXAM: VITAL SIGNS: Reviewed. GENERAL: Well-developed in no acute distress. HEENT: Head is normocephalic. Pupils are equal, round. Sclerae anicteric. Mucous membranes of the mouth are moist. Neck supple. No JVD or thyromegaly LUNGS: Respirations even and unlabored. Lungs expiratory wheezing and harsh barking cough on examination HEART: Irregular rate and rhythm. S1 and S2 heard. Pansystolic murmur noted at the right sternal border. ABDOMEN: Soft. Nondistended. Nontender. EXTREMITIES: Normal range of motion. No clubbing or cyanosis. Peripheral pulses intact. 2-3+ pitting bilateral lower extremity edema NEUROLOGIC: Awake and alert. Oriented x 3. ASSESSMENT: Shortness of breath Possible pneumonia Acute on chronic heart failure with preserved ejection fraction Valvular heart disease including moderate aortic stenosis Persistent atrial fibrillation Minimal CAD Hypertension Hyperlipidemia Recent diagnosis of Covid19 Debility, bed bound at baseline Diabetes Morbid obesity PLAN: Obtain 2-D echo to assess cardiac structure and function. Assess for progression of aortic stenosis. Resume home cardiac medications Continue IV Lasix 40 mg every 12 hours Daily weights, accurate I&O, and monitoring of kidney function Further recommendations pending patient's course Nurse practitioner note has been reviewed by physician. Signing provider agrees with the documented findings, assessment, and plan of care. 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 lt leg gives out wears brace History of Any Multi-Drug Resistant Organisms: MRSA Date of last positivie culture/infection: 01/22/22 MDRO Source:: Left Leg Past Surgical History: Back Surgery, Breast Surgery, Cholecystectomy, Joint Replacement, Orthopedic Surgery Additional Past Surgical History / Comment(s): thelma knee replac; L shoulder replac.; carpel tunnel vaginal duct cyst; benign breast surg; cataracts; retinal repair left eye. BAck surgery, hernia repair Past Anesthesia/Blood Transfusion Reactions: No Reported Reaction Past Psychological History: Depression Smoking Status: Never smoker Past Alcohol Use History: None Reported Past Drug Use History: None Reported - Past Family History Father Family Medical History: Deep Vein Thrombosis (DVT) Son(s) Family Medical History: Deep Vein Thrombosis (DVT) Mother Family Medical History: Cancer Additional Family Medical History / Comment(s): Mother had cancer in her back. Daughter(s) Family Medical History: Blood Disorder Additional Family Medical History / Comment(s): Daughter has MTHFR factor and pt's grandson has lyme factor V and grand daughter has MTHFR. Medications and Allergies Home Medications Medication Instructions Recorded Confirmed Type Simvastatin [Zocor] 10 mg PO HS 08/25/17 11/30/23 History metFORMIN HCL [Glucophage] 1,000 mg PO BID@0800,1600 08/25/17 11/30/23 History Potassium Chloride [Klor-Con 20] 20 meq PO BID@0800,1600 08/19/19 11/30/23 History Apixaban [Eliquis] 5 mg PO BID@0800,1600 12/13/19 11/30/23 History Furosemide [Lasix] 80 mg PO BID@0800,1600 07/01/21 11/30/23 History Empagliflozin [Jardiance] 10 mg PO DAILY@0800 01/21/22 11/30/23 History Dulaglutide [Trulicity] 1.5 mg SQ FR 01/12/23 11/30/23 History Acetaminophen [Tylenol] 650 mg PO Q4H PRN 11/30/23 11/30/23 History Ascorbic Acid [Vitamin C] 500 mg PO DAILY@0800 11/30/23 11/30/23 History Cholecalciferol [Vitamin D3 (25 75 mcg PO DAILY 11/30/23 11/30/23 History Mcg = 1000 Iu)] Ibuprofen [Motrin] 600 mg PO Q6H PRN 11/30/23 11/30/23 History Magnesium Oxide [Mag-Ox] 250 mg PO BID@0800,1600 11/30/23 11/30/23 History Melatonin 3 mg PO HS 11/30/23 11/30/23 History Metoclopramide HCl [Reglan] 5 mg PO AC-TID 11/30/23 11/30/23 History Metoprolol Tartrate [Lopressor] 25 mg PO BID@0800,1600 11/30/23 11/30/23 History Ondansetron [Zofran] 4 mg PO Q6H PRN 11/30/23 11/30/23 History Sennosides/Docusate Sodium [Senna 2 tab PO HS 11/30/23 11/30/23 History Plus 8.6-50 mg Tablet] Zinc Sulfate [Orazinc] 220 mg PO DAILY@0800 11/30/23 11/30/23 History guaiFENesin [guaiFENesin Oral 200 mg PO Q4H PRN 11/30/23 11/30/23 History Solution] Allergies Allergy/AdvReac Type Severity Reaction Status Date / Time Penicillins Allergy Rash/Hives Verified 11/30/23 12:55 azithromycin AdvReac Dyspnea & Verified 11/30/23 12:55 nausea ciprofloxacin [From Cipro] AdvReac Dyspnea & Verified 11/30/23 12:55 nausea Physical Exam Vitals: Vital Signs Temp Pulse Pulse Pulse Resp BP BP 12/01/23 09:11 96 12/01/23 08:58 99 12/01/23 08:00 98.0 F 98 100 22 93/60 12/01/23 04:00 99 16 93/61 12/01/23 02:00 98 102 H 20 12/01/23 00:00 98.2 F 102 H 20 93/50 11/30/23 22:31 82 11/30/23 22:26 11/30/23 22:21 82 11/30/23 20:48 98.0 F 98 98 20 98/53 11/30/23 20:12 98.7 F 89 16 105/64 11/30/23 19:00 91 24 104/81 11/30/23 18:00 90 24 107/66 11/30/23 17:00 92 24 111/74 11/30/23 16:00 109 H 24 137/69 11/30/23 15:00 98 20 104/56 11/30/23 14:00 100.0 F H 108 H 30 H 114/67 11/30/23 13:31 113 H 34 H 137/96 11/30/23 13:00 103 H 30 H 123/76 11/30/23 12:30 106 H 28 H 104/49 11/30/23 11:43 100.3 F H 100 20 130/72 Pulse Ox 12/01/23 09:11 12/01/23 08:58 96 12/01/23 08:00 98 12/01/23 04:00 97 12/01/23 02:00 12/01/23 00:00 98 11/30/23 22:31 11/30/23 22:26 97 11/30/23 22:21 11/30/23 20:48 98 11/30/23 20:12 95 11/30/23 19:00 96 11/30/23 18:00 98 11/30/23 17:00 94 L 11/30/23 16:00 96 11/30/23 15:00 97 11/30/23 14:00 95 11/30/23 13:31 88 L 11/30/23 13:00 95 11/30/23 12:30 96 11/30/23 11:43 89 L Intake and Output 11/30/23 12/01/23 12/01/23 22:59 06:59 14:59 Output Total 500 Balance -500 Output: Urine 500 Other: Voiding Method External Catheter External Catheter External Catheter Weight 115.212 kg 99.5 kg Results 12/01/23 03:40 12/01/23 03:34 Cardiac Enzymes 11/30/23 11/30/23 12/01/23 Range/Units 11:50 11:50 03:34 AST 25 18 (14-36) U/L Troponin I <0.012 (0.000-0.034) ng/mL Coagulation 11/30/23 Range/Units 11:50 PT 11.9 (10.0-12.5) sec APTT 27.9 (22.0-30.0) sec CBC 11/30/23 12/01/23 Range/Units 11:50 03:40 WBC 13.0 H 10.1 (3.8-10.6) k/uL RBC 3.73 L 3.24 L (3.80-5.40) m/uL Hgb 10.5 L 9.1 L (11.4-16.0) gm/dL Hct 33.6 L 29.3 L (34.0-46.0) % Plt Count 221 186 (150-450) k/uL Comprehensive Metabolic Panel 11/30/23 12/01/23 Range/Units 11:50 03:34 Sodium 140 140 (137-145) mmol/L Potassium 5.1 4.6 (3.5-5.1) mmol/L Chloride 102 104 (98-107) mmol/L Carbon Dioxide 27 26 (22-30) mmol/L BUN 27 H 27 H (7-17) mg/dL Creatinine 1.34 H 1.46 H (0.52-1.04) mg/dL Glucose 141 H 133 H (74-99) mg/dL Calcium 9.1 8.3 L (8.4-10.2) mg/dL AST 25 18 (14-36) U/L ALT 13 12 (4-34) U/L Alkaline Phosphatase 91 81 (38-126) U/L Total Protein 7.4 6.3 (6.3-8.2) g/dL Albumin 3.6 3.0 L (3.5-5.0) g/dL Current Medications Generic Name Dose Route Start Last Admin Trade Name Freq PRN Reason Stop Dose Admin Acetaminophen 650 mg 11/30/23 19:30 Acetaminophen Tab 325 Mg Tab PO Q4H PRN Pain Albuterol/Ipratropium 3 ml 11/30/23 20:00 12/01/23 08:58 Ipratropium-Albuterol 3 Ml Neb INHALATION 3 ml RT-QID ALINA Administration Apixaban 5 mg 12/01/23 08:00 12/01/23 09:26 Apixaban 5 Mg Tab PO 5 mg BID@0800,1600 ALINA Administration Protocol Ascorbic Acid 500 mg 12/01/23 08:00 12/01/23 09:26 Ascorbic Acid 500 Mg Tab PO 500 mg DAILY@0800 ALINA Administration Atorvastatin Calcium 10 mg 11/30/23 21:00 11/30/23 22:00 Atorvastatin 10 Mg Tab PO 10 mg HS ALINA Administration Cholecalciferol 75 mcg 12/01/23 09:00 12/01/23 09:26 Cholecalciferol 25 Mcg (1000 Iu) Tablet PO 75 mcg DAILY ALINA Administration Dapagliflozin 5 mg 12/01/23 08:00 12/01/23 09:26 Dapagliflozin Propanediol 5 Mg Tablet PO 5 mg DAILY@0800 ALINA Administration Furosemide 60 mg 11/30/23 21:00 12/01/23 09:25 Furosemide 10 Mg/Ml 10 Ml Vial IV 60 mg Q12HR ALINA Administration Guaifenesin 200 mg 12/01/23 00:30 12/01/23 09:26 Guaifenesin Syrup 100mg/5ml 200 Mg/10 Ml Cup PO 200 mg Q4H ALINA Administration Sodium Chloride 1,000 mls @ 20 mls/hr 11/30/23 14:45 11/30/23 14:46 Saline 0.9% IV 20 mls/hr .Q24H ALINA Administration Aztreonam 1 gm/ Sodium 50 mls @ 16.667 mls/hr 11/30/23 20:00 12/01/23 06:43 Chloride IVPB 16.667 mls/hr Q8H ALINA Administration Vancomycin HCl 1,750 mg/ 500 mls @ 167 mls/hr 12/01/23 12:00 Sodium Chloride IVPB 12/01/23 14:59 ONCE ONE Magnesium Oxide 400 mg 12/01/23 08:00 12/01/23 09:26 Magnesium Oxide 400 Mg Tab PO 400 mg BID@0800,1600 [facility] Administration Melatonin 3 mg 11/30/23 21:00 11/30/23 23:42 Melatonin 3 Mg Tablet PO Not Given HS [facility] Metoclopramide HCl 5 mg 12/01/23 07:30 12/01/23 06:43 Metoclopramide 5 Mg Tab PO 5 mg AC-TID ALINA Administration Metoprolol Tartrate 25 mg 12/01/23 08:00 12/01/23 09:26 Metoprolol Tartrate 25 Mg Tab PO 25 mg BID@0800,1600 [facility] Administration Miscellaneous Information 0 each 11/30/23 19:45 Vancomycin Iv Per Pharmacy 1 Each Misc MISCELLANE DIRECTED PRN LEVEL Naloxone HCl 0.2 mg 11/30/23 14:37 Naloxone 0.4 Mg/Ml 1 Ml Vial IV Q2M PRN Opioid Reversal Patient's Own ( 1.5 mg 12/02/23 09:00 Dulaglutide [ SQ Trulicity] 1.5 Mg/0. FR ALINA 5 Ml Each) Ondansetron HCl 4 mg 11/30/23 19:30 Ondansetron 4 Mg Tab PO Q6H PRN Nausea And Vomiting Potassium Chloride 20 meq 12/01/23 08:00 12/01/23 09:26 Potassium Chloride Er 20 Meq Tab.Er PO 20 meq BID@0800,1600 [facility] Administration Senna/Docusate Sodium 2 each 11/30/23 21:00 11/30/23 22:00 Sennosides-Docusate Sodium 1 Each Tab PO 2 each HS [facility] Administration Zinc Sulfate 220 mg 12/01/23 08:00 12/01/23 09:26 Zinc Sulfate 220 Mg Cap PO 220 mg DAILY@0800 [facility] Administration Intake and Output 11/30/23 12/01/23 12/01/23 22:59 06:59 14:59 Output Total 500 Balance -500 Output: Urine 500 Other: Voiding Method External Catheter External Catheter External Catheter Weight 115.212 kg 99.5 kg 12/01/23 03:40 12/01/23 03:34
[2023-12-01] MEDS ORDERED: VANCOMYCIN 1,750 MG in SODIUM CHLORIDE 0.9% 500 ML 500 ML IVPB ONE (12:00)
--- NOTE | 2023-12-01 12:13 | US ---
EXAMINATION TYPE: US venous doppler duplex LE BI DATE OF EXAM: 12/01/2023 8:35 AM Exam done portable COMPARISON: US 2021 CLINICAL INDICATION: Female, 88 years old with history of rule out DVT; SIDE PERFORMED: Bilateral TECHNIQUE: The lower extremity deep venous system is examined utilizing real time linear array sonog silver with graded compression, doppler sonography and color-flow sonography. VESSELS IMAGED: Common Femoral Vein Deep Femoral Vein Greater Saphenous Vein * Femoral Vein Popliteal Vein Small Saphenous Vein * Proximal Calf Veins (* superficial vessels) Difficult and limited study due to patient's position and body habitus Right Leg: Thrombus seen within EIV with partial flow and compression, distal femoral vein not visua lized and limited visualization of popliteal vein due to limitations listed above Left Leg: Thrombus seen within proximal femoral vein with partial flow and compression, distal femor al vein not visualized and unable to scan behind patient's knee due to limitations listed above IMPRESSION: 1. Bilateral lower extremity deep venous thrombosis. This appears to be incompletely obstructing and likely chronic.
[2023-12-01 16:53] LABS: Glucose,Whole Blood 145 mg/dL (70-110)
--- NOTE | 2023-12-01 17:07 | CA ---
Transthoracic Echo Report Name: Sybil Brandt Age: 88 Gender: F : 1935 Exam Date: 12/01/2023 15:30 Exam Location: [facility] Ht (in): 65 Wt (lb): 219 Ordering Physician: Blanca Sexton Attending/Referring Phys: [id number], Darshan Cable Placer Cassandra Joseph RDCS Procedure CPT: Indications: lv function, , CHF Cardiac Hx: Technical Quality: Technically difficult study Contrast 1: Total Dose (mL): Contrast 2: Total Dose (mL): MEASUREMENTS (Male / Female) Normal Values 2D ECHO LV Diastolic Diameter PLAX 5.2 cm 4.2 - 5.9 / 3.9 - 5.3 cm LV Systolic Diameter PLAX 3.2 cm IVS Diastolic Thickness 1.6 cm 0.6 - 1.0 / 0.6 - 0.9 cm LVPW Diastolic Thickness 1.5 cm 0.6 - 1.0 / 0.6 - 0.9 cm LV Relative Wall Thickness 0.6 LVOT Diameter 3.1 cm LA Systolic Diameter LX 4.1 cm 3.0 - 4.0 / 2.7 - 3.8 cm LV Diastolic Volume MOD BP 51.4 cm??? 67 - 155 / 56 - 104 cm??? LV Systolic Volume MOD BP 28.7 cm??? / 19 - 49 cm??? LV Ejection Fraction MOD BP 44.1 % >= 55 % LV Cardiac Index MOD BP 802.2 cm???/min???m??? LV Diastolic Volume MOD 4C 47.8 cm??? LV Systolic Volume MOD 4C 25.8 cm??? LV Ejection Fraction MOD 4C 46.0 % LV Cardiac Index MOD 4C 776.9 cm???/min???m??? LV Diastolic Length 4C 6.7 cm LV Systolic Length 4C 5.7 cm LV Diastolic Volume MOD 2C 51.3 cm??? LV Systolic Volume MOD 2C 29.2 cm??? LV Ejection Fraction MOD 2C 43.2 % LV Cardiac Index MOD 2C 784.4 cm???/min???m??? LV Diastolic Length 2C 6.0 cm LV Systolic Length 2C 5.1 cm LA Volume 104.5 cm??? 18 - 58 / 22 - 52 cm??? LA Volume Index 48.0 cm???/m??? 16 - 28 cm???/m??? M-MODE Aortic Root Diameter MM 4.1 cm MV E Point Septal Separation 1.3 cm AV Cusp Separation MM 1.1 cm DOPPLER AV Peak Velocity 345.5 cm/s AV Peak Gradient 47.8 mmHg AV Mean Velocity 265.1 cm/s AV Mean Gradient 30.7 mmHg AV Velocity Time Integral 90.4 cm AI Peak Velocity 444.7 cm/s AI Peak Gradient 79.1 mmHg AI Pressure Half Time 331.0 ms LVOT Peak Velocity 85.1 cm/s LVOT Peak Gradient 2.9 mmHg AV Area Cont Eq pk 1.8 cm??? MV Area PHT 5.5 cm??? MV Deceleration Time 143.7 ms TR Peak Velocity 358.5 cm/s TR Peak Gradient 51.4 mmHg Right Ventricular Systolic Press 65.6 mmHg FINDINGS Left Ventricle Left ventricular ejection fraction is estimated at 40-45 %. Left ventricular cavity size normal. Moderately increased septal wall thickness. Moderately increased posterior wall thickness. Moderately decreased left ventricular ejection fraction. Flattening of ventricular septum Right Ventricle Severe right ventricular dilatation. Severe pulmonary hypertension. Right ventricular systolic pressure estimated at 66 mm hg. Right Atrium Severe right atrial dilatation. Left Atrium Mildly increased left atrial diameter. Severely increased left atrial volume. Moderately increased left atrial area. Mitral Valve Mitral valve thickened. Mild mitral annular calcification. Mild mitral regurgitation. Aortic Valve Severe aortic valve sclerosis. Moderate aortic stenosis with a peak gradient of 48 mmHg and a mean gradient of 34 mmHg. Tricuspid Valve Structurally normal tricuspid valve. Mild tricuspid regurgitation. Pulmonic Valve Structurally normal pulmonic valve. [id number] pulmonic regurgitation. Pericardium No pericardial effusion. Aorta Moderate aortic dilatation at the level of the sinuses of valsalva 41 mm CONCLUSIONS Moderate LV systolic dysfunction Moderate to severe aortic stenosis with a peak gradient of 48 mm and a mean gradient of 34 mm Aortic root diameter dictation Previewed by: Dr. Bonilla Klein MD (Electronically Signed) Final Date: 01 December 2023 17:06
[2023-12-01 20:13] LABS: Glucose,Whole Blood 176 mg/dL (70-110)
[2023-12-01] MEDS: ATORVASTATIN 10 MG TAB PO SCH (20:50)
[2023-12-01] MEDS: SENNOSIDES-DOCUSATE SODIUM 1 EACH TAB PO SCH (20:50)
[2023-12-01] MEDS: MELATONIN 3 MG TABLET PO SCH (20:50)
[2023-12-01] MEDS: FUROSEMIDE 10 MG/ML 4 ML VIAL IV SCH (20:51)
[2023-12-02 00:26] LABS: Glucose,Whole Blood 199 mg/dL (70-110)
[2023-12-02] MEDS ORDERED: SODIUM CHLORIDE 0.9% 500 ML 500 ML IV ONE ×2 (00:30→03:56)
[2023-12-02] MEDS: guaiFENesin SYRUP 100MG/5ML 200 MG/10 ML CUP PO SCH ×6 (01:41→21:01)
[2023-12-02] MEDS: SODIUM CHLORIDE 0.9% 1,000 ML IV SCH ×2 (02:57→18:51)
[2023-12-02] MEDS: AZTREONAM 1 GM in SODIUM CHLORIDE 0.9% 50 ML IVPB SCH ×3 (03:33→20:59)
[2023-12-02 04:21] LABS: Mycoplasma IgG Antibody (EIA) 0.73 INDEX (<=0.90); Mycoplasma IgM Antibody 0.35 INDEX (<=0.90)
[2023-12-02] MEDS: METOCLOPRAMIDE 5 MG TAB PO SCH ×3 (06:10→17:53)
[2023-12-02 06:23] LABS: Glucose,Whole Blood 163 mg/dL (70-110)
[2023-12-02 08:12] LABS: Anisocytosis Slight; HCT 31.1 % (34.0-46.0); HGB 9.8 gm/dL (11.4-16.0); Hypochromasia Marked; MCH 28.8 pg (25.0-35.0); MCHC 31.5 g/dL (31.0-37.0); MCV 91.3 fL (80.0-100.0); Mean Platelet Volume 10.4; Platelet Count 195 k/uL (150-450); Poikilocytosis Slight; RBC 3.41 m/uL (3.80-5.40); RDW 19.1 % (11.5-15.5); WBC 8.7 k/uL (3.8-10.6)
[2023-12-02 08:30] LABS: ALT 13 U/L (4-34); AST 29 U/L (14-36); African American GFR (CKD) 35 (>60 ml/min/1.73 sqM); Alkaline Phosphatase 77 U/L (38-126); Anion Gap 11 mmol/L; Blood Urea Nitrogen 35 mg/dL (7-17); Calcium 8.2 mg/dL (8.4-10.2); Carbon Dioxide 24 mmol/L (22-30); Chloride 104 mmol/L (98-107); Glucose 133 mg/dL (74-99); Non-African American GFR(CKD) 31 (>60 ml/min/1.73 sqM); Potassium 4.8 mmol/L (3.5-5.1); Sodium 139 mmol/L (137-145); Total Bilirubin 0.7 mg/dL (0.2-1.3); Total Protein 6.6 g/dL (6.3-8.2)
[2023-12-02] MEDS: IPRATROPIUM-ALBUTEROL 3 ML NEB INHALATION SCH ×4 (08:55→21:12)
[2023-12-02] MEDS ORDERED: PATIENT'S OWN (Dulaglutide [Trulicity] 1.5 MG/0.5 ML Each) SQ SCH (09:00)
[2023-12-02] MEDS: ZINC SULFATE 220 MG CAP PO SCH (09:44)
[2023-12-02] MEDS: ASCORBIC ACID 500 MG TAB PO SCH (09:44)
[2023-12-02] MEDS: APIXABAN 5 MG TAB PO SCH (09:44)
[2023-12-02] MEDS: DAPAGLIFLOZIN PROPANEDIOL 5 MG TABLET PO SCH (09:44)
[2023-12-02] MEDS: CHOLECALCIFEROL 25 MCG (1000 IU) TABLET PO SCH (09:44)
[2023-12-02] MEDS: POTASSIUM CHLORIDE ER 20 MEQ TAB.ER PO SCH ×2 (09:44→17:54)
[2023-12-02] MEDS: FUROSEMIDE 10 MG/ML 4 ML VIAL IV SCH ×2 (09:45→21:01)
[2023-12-02] MEDS: MAGNESIUM OXIDE 400 MG TAB PO SCH ×2 (09:45→17:53)
[2023-12-02] MEDS: METOPROLOL TARTRATE 25 MG TAB PO SCH ×2 (09:45→17:54)
[2023-12-02] MEDS ORDERED: VANCOMYCIN 1,750 MG in SODIUM CHLORIDE 0.9% 500 ML 500 ML IVPB ONE (10:00)
[2023-12-02 11:23] LABS: Glucose,Whole Blood 171 mg/dL (70-110)
--- NOTE | 2023-12-02 11:47 | CDI ---
Documentation Clarification Form Date: 12/02/2023 11:24:12 AM From: Nica Blevins RN CCDS Phone: [phone] Admit Date: 11/30/2023 02:42:00 PM Patient Name: Sybil Brandt Visit Number: [id number] Discharge Date: ATTENTION: The Clinical Documentation Specialists (CDI) and [facility] Coding Staff appreciate your assistance in clarifying documentation. Please respond to the clarification below the line at the bottom and electronically sign. The CDI & [facility] Coding staff will review the response and follow-up if needed. Please note: Queries are made part of the Legal Health Record. If you have any questions, please contact the author of this message via ITS. Dr. Kinjal Liu Possible bacterial pneumonia is documented 12/01, Pulmonary consult. Additional clarification regarding the type of pneumonia is requested. History/Risk Factors: 88-year-old female presents to the ED from [facility] for difficulty breathing and weakness. The patient recently tested positive for COVID 19. Medical History: DM, CHF, chronic lower extremity swelling and prior cellulitis, DVT, PE and bed bound. 12/01, Pulmonary consult. Clinical Indicators: VVS, 11/30: B/P 130/72; HR 100; Temp 100.3; RR 20; SpO2 89% room air. WBC/Left shift, 11/30: Wbc 13.0; Neutrophils 11.3, Lactic acid 2.5 Procalcitonin, 12/01: 0.32 X-ray, 11/30: Pulmonary vascular congestion. Small to moderate left pleural effusion with adjacent atelectasis and/or consolidation. Lung/Breathing assessment, 12/01 Pulmonology consult: Equal air entry with expiratory wheezes heard throughout and a persistent dry nonproductive cough. Treatment: Antibiotics: 11/30 Azithromycin 500mg IVPB x 1; 11/30 Rocephin 1,000mg IVP x 1; 11/30 Vancomycin 1,750mg IVPB x 1; 11/30 Aztreonam 1gm IVPB Q8H ALINA; 12/01 Vancomycin 1,750mg IVPB x 1 O2: 2L up to 5L nasal cannula Breathing Tx: Duoneb 0.5mg-3mg/ 3ml soln; 3ml Inhalation QID ALINA Please clarify the type of pneumonia, if known: [ X ] Gram Negative Bacterial Pneumonia [ ] Other bacteria (please specify) [ ] Viral Pneumonia, specify casual organism (if known) [ ] Other, please specify [ ] Unable to determine (Template Last Revised: January 2021) MTDD
--- NOTE | 2023-12-02 13:17 | P.PN ---
Subjective HISTORY OF PRESENT ILLNESS: This is a 88-year-old female with a past medical history significant for persistent atrial fibrillation, minimal coronary artery disease, valvular heart disease, congestive heart failure, hypertension, and hyperlipidemia. Patient follows in the office with Dr. Delacruz. We have been asked to see the patient in consultation for congestive heart failure. Patient examined at the bedside. Patient presented to the hospital with a chief complaint of cough, shortness of breath, and increased lower extremity edema. She denies any chest pain or pressure. She denies any palpitations. Denies nausea or vomiting. Patient was found to be in acute congestive heart failure was started on IV Lasix. * EKG reveals atrial fibrillation with controlled ventricular rate * Chest xray correlate for CHF with pulmonary vascular congestion. Small to moderate left pleural effusion with adjacent atelectasis and/or consolidation. * Chest CT: Limited assessment for pulmonary embolism. No obvious large central or definite lobar branch pulmonary embolus. Cardiomegaly with prominent refluxing contrast into the hepatic veins suggesting elevated cardiac pressures. Additional patchy opacity of the left base could represent atelectasis or developing infiltrate versus patchy pulmonary edema. * Laboratory data: Troponin negative 1. ProBNP 5140. * Most recent echocardiogram obtained in August 2021 revealed normal ejection fraction, moderate NV, mild TR, mild MR, moderate , and mild AR * Cardiac catheterization history: May 2010 revealing minimal CAD. 12/02/2023 Patient examined this morning at the bedside. Patient's daughter is present. Patient currently denies chest pain or pressure. He she continues to report mild shortness of breath. Patient was hypotensive overnight with a systolic blood pressure in the 70s. She did receive IV fluid bolus with improvement in her blood pressure. Patient's daughter states her blood pressure usually runs on the lower side with a systolic around 90. The patient's daughter also gives additional history that the patient is noncompliant on an outpatient basis. She states she does not take her Lasix as prescribed because she does not want to urinate frequently. She also does not follow a low-sodium diet on an outpatient basis. Echocardiogram completed revealing ejection fraction 40-45%, mild mitral regurgitation, severe pulmonary hypertension, moderate to severe aortic stenosis, and mild TR PHYSICAL EXAM: VITAL SIGNS: Reviewed. GENERAL: Well-developed in no acute distress. HEENT: Head is normocephalic. Pupils are equal, round. Sclerae anicteric. Mucous membranes of the mouth are moist. Neck supple. No JVD or thyromegaly LUNGS: Respirations even and unlabored. Lungs expiratory wheezing and harsh b arking cough on examination HEART: Irregular rate and rhythm. S1 and S2 heard. Pansystolic murmur noted at the right sternal border. ABDOMEN: Soft. Nondistended. Nontender. EXTREMITIES: Normal range of motion. No clubbing or cyanosis. Peripheral pulses intact. 4+ pitting bilateral lower extremity edema NEUROLOGIC: Awake and alert. Oriented x 3. ASSESSMENT: Shortness of breath Possible pneumonia Acute on chronic heart failure with reduced EF, 4045% Valvular heart disease including moderate aortic stenosis Persistent atrial fibrillation Minimal CAD Hypertension Hyperlipidemia Recent diagnosis of Covid19 Debility, bed bound at baseline Diabetes Morbid obesity PLAN: Continue to monitor blood pressure. Patient's blood pressures are around 90 systolic at baseline. Continue IV Lasix 40 mg every 12 hours Daily weights, accurate I&O, and monitoring of kidney function Continue additional cardiac medications Elevation of patient's bilateral lower extremities to reduce edema Further recommendations pending patient's course Nurse practitioner note has been reviewed by physician. Signing provider agrees with the documented findings, assessment, and plan of care. Objective - Vital Signs Vital signs: Vital Signs Temp 98.4 F 12/02/23 03:38 Pulse 80 12/02/23 12:57 Resp 18 12/02/23 03:38 BP 95/54 12/02/23 04:18 Pulse Ox 96 12/02/23 08:57 FiO2 Intake & Output 12/01/23 12/02/23 12/02/23 18:59 06:59 18:59 Intake Total 420 225 Output Total 550 Balance 420 -550 225 Weight 100 kg Intake: Oral 420 225 Output: Urine 550 Other: Voiding Method External Catheter External Catheter # Bowel Movements 1 - Labs CBC & Chem 7: 12/02/23 07:34 12/02/23 07:34 Labs: Abnormal Lab Results - Last 24 Hours (Table) 12/01/23 12/01/23 12/02/23 Range/Units 16:43 20:09 00:24 RBC (3.80-5.40) m/uL Hgb (11.4-16.0) gm/dL Hct (34.0-46.0) % RDW (11.5-15.5) % BUN (7-17) mg/dL Creatinine (0.52-1.04) mg/dL Glucose (74-99) mg/dL POC Glucose (mg/dL) 145 H 176 H 199 H (70-110) mg/dL Calcium (8.4-10.2) mg/dL Albumin (3.5-5.0) g/dL 12/02/23 12/02/23 12/02/23 Range/Units 06:21 07:34 07:34 RBC 3.41 L (3.80-5.40) m/uL Hgb 9.8 L (11.4-16.0) gm/dL Hct 31.1 L (34.0-46.0) % RDW 19.1 H (11.5-15.5) % BUN 35 H (7-17) mg/dL Creatinine 1.53 H (0.52-1.04) mg/dL Glucose 133 H (74-99) mg/dL POC Glucose (mg/dL) 163 H (70-110) mg/dL Calcium 8.2 L (8.4-10.2) mg/dL Albumin 3.0 L (3.5-5.0) g/dL 12/02/23 Range/Units 11:21 RBC (3.80-5.40) m/uL Hgb (11.4-16.0) gm/dL Hct (34.0-46.0) % RDW (11.5-15.5) % BUN (7-17) mg/dL Creatinine (0.52-1.04) mg/dL Glucose (74-99) mg/dL POC Glucose (mg/dL) 171 H (70-110) mg/dL Calcium (8.4-10.2) mg/dL Albumin (3.5-5.0) g/dL Microbiology - Last 24 Hours (Table) 11/30/23 12:05 Blood Culture - Preliminary Blood 11/30/23 11:50 Blood Culture - Preliminary Blood
--- NOTE | 2023-12-02 14:17 | P.PN ---
Subjective Progress Note Date: 12/02/23 Principal diagnosis: Respiratory failure. I am seeing this patient in consultation today 12/01/2023 after she was brought in from [facility]. Apparently she tested positive for COVID-19 last week. Since then, she's had difficulty in breathing and weakness. Patient is a 88-year-old white female with past medical history significant for congestive heart failure, chronic lower extremity swelling and prior cellulitis, atrial fibrillation, PE/DVT, diabetes mellitus, hyperlipidema, hypertension, among other things. Patient resides at [facility]. Apparently, she tested positive for COVID-19 last week. She did receive her original COVID-19 vaccination, but without any booster injections. On arrival to the emergency room, she was noted to be short of breath. Requiring more supplemental oxygen than baseline. She was also mildly febrile with a T-max of 100.3F. Interestingly, the patient tested negative for COVID-19 at our facility. Chest x-ray shows cardiomegaly, pulmonary vascular congestion, and probable bilateral small pleural effusions. There is a possible developing left lower lobe infiltrate or atelectasis. D-dimer was elevated. Follow-up chest CTA does not show any obvious large central pulmonary embolism, breathing artifact limits exam. There is cardiomegaly with prominent refluxing contrast and hepatic veins suggestive of failure. There is pulmonary arterial hypertension and small left pleural effusion. There is an additional patchy opacities at the left base which could represent atelectasis or developing pulmonary infiltrate. There may be underlying tracheobronchial malacia. CBC on arrival: WBC count 13, hemoglobi n 10.5, hematocrit 33.6, platelets 221. BMP on arrival: Sodium 140, potassium 5.1, chloride 102, serum bicarb 27, BUN 27, creatinine 1.34, glucose 141. Lactic acid level peaked at 3.3. Patient is empirically covered on aztreonam and vancomycin. She also has lower extremity swelling. Left greater than right. Left leg is erythemic. She has history of cellulitis of this extremity. NT proBNP was elevated at 5140. Currently the patient is being diuresed with Lasix 60 mg IV every 12 hours. Patient is currently sitting up in bed, on 5 L/m nasal cannula, in no acute distress. She is hard of hearing. She is not in any respiratory distress, but has a persistent dry nonproductive cough. Patient states that his cough was productive earlier in the week, producing creamy sputum. Admits subjective fevers last week when she was diagnosed with COVID- 19. Denies any chest pain, hemoptysis. She has been very weak. Patient is mostly bedbound/wheelchair bound while at [facility]. Vital signs are stable. Progress note dated 12/02/2023. This is a 88-year-old female who was seen yesterday in consultation. Please see the note above. The patient resides at one of the local nursing homes. Currently, she is on 3 L of oxygen. Her pro-calcitonin level was 0.32. She continues on vancomycin, and aztreonam. She's treated for possible urinary tract infection, and possible pneumonia. Last night, the charge nurse from the ICU call me twice about this patient, because of low blood pressures. She responded very nicely to fluid resuscitation. Currently, her blood pressure is stable. Laboratory data includes a white count of 8.7, hemoglobin 9.8, hematocrit 31.1, and a platelet count of 195,000. Sodium 139, potassium 4.8, chlorides 104, CO2 24, BUN 35, creatinine 1.53. Objective - Vital Signs Vital signs: Vital Signs Temp 98.4 F 12/02/23 03:38 Pulse 80 12/02/23 12:57 Resp 18 12/02/23 03:38 BP 95/54 12/02/23 04:18 Pulse Ox 96 12/02/23 08:57 FiO2 Intake & Output 12/01/23 12/02/23 12/02/23 18:59 06:59 18:59 Intake Total 420 450 Output Total 550 Balance 420 -550 450 Weight 100 kg Intake: Oral 420 450 Output: Urine 550 Other: Voiding Method External Catheter External Catheter # Bowel Movements 1 - Exam No acute distress, somnolent, currently on nasal O2 at 3 L. HEENT examination is grossly unremarkable. Mucous membranes are moist. No oral lesions. Neck supple. Full range of motion. No adenopathy thyromegaly or neck vein distention. Cardiovascular examination reveals regular rhythm rate. S1-S2 normal. No S3 or S4. No discernible murmur noted. Heart sounds are distant. Heart rate 80 bpm. Lungs reveal bilateral scattered rhonchi. No wheezes. No crackles. 3 L saturation is 96%. Breath sounds are equal bilaterally. Abdomen soft, without bowel sounds. No masses. Extremities are intact. No cyanosis or clubbing. There is lower extremity gonzalo a. Skin is without rash or lesion. Neurologic examination is brief but nonfocal. - Labs CBC & Chem 7: 12/02/23 07:34 12/02/23 07:34 Labs: Abnormal Lab Results - Last 24 Hours (Table) 12/01/23 12/01/23 12/02/23 Range/Units 16:43 20:09 00:24 RBC (3.80-5.40) m/uL Hgb (11.4-16.0) gm/dL Hct (34.0-46.0) % RDW (11.5-15.5) % BUN (7-17) mg/dL Creatinine (0.52-1.04) mg/dL Glucose (74-99) mg/dL POC Glucose (mg/dL) 145 H 176 H 199 H (70-110) mg/dL Calcium (8.4-10.2) mg/dL Albumin (3.5-5.0) g/dL 12/02/23 12/02/23 12/02/23 Range/Units 06:21 07:34 07:34 RBC 3.41 L (3.80-5.40) m/uL Hgb 9.8 L (11.4-16.0) gm/dL Hct 31.1 L (34.0-46.0) % RDW 19.1 H (11.5-15.5) % BUN 35 H (7-17) mg/dL Creatinine 1.53 H (0.52-1.04) mg/dL Glucose 133 H (74-99) mg/dL POC Glucose (mg/dL) 163 H (70-110) mg/dL Calcium 8.2 L (8.4-10.2) mg/dL Albumin 3.0 L (3.5-5.0) g/dL 12/02/23 Range/Units 11:21 RBC (3.80-5.40) m/uL Hgb (11.4-16.0) gm/dL Hct (34.0-46.0) % RDW (11.5-15.5) % BUN (7-17) mg/dL Creatinine (0.52-1.04) mg/dL Glucose (74-99) mg/dL POC Glucose (mg/dL) 171 H (70-110) mg/dL Calcium (8.4-10.2) mg/dL Albumin (3.5-5.0) g/dL Microbiology - Last 24 Hours (Table) 11/30/23 12:05 Blood Culture - Preliminary Blood 11/30/23 11:50 Blood Culture - Preliminary Blood Assessment and Plan Assessment: Acute on chronic hypoxemic respiratory failure, likely multifactorial, secondary to acute on chronic diastolic CHF exacerbation and possible left lower lobe healthcare associated pneumonia. Recent history of acute COVID-19 infection. Leukocytosis. Acute kidney injury. Chronic lower extremity edema and cellulitis. History of osteomyelitis, left great toe. diabetes mellitus, type II. History DVT/PE. Paroxysmal atrial fibrillation. History of hyperlipidemia. History of hypertension. Morbid obesity, with a BMI of 42.3 kg/m. Plan: Plan dated 12/02/2023. Currently, the patient's blood pressure is much more stable. She appeared to respond very nicely last night to fluid resuscitation. She continues on antibiotics in the form of vancomycin, and aztreonam. Labs, x-rays, and medications are reviewed. Thus far, culture data is negative. We will continue to follow the patient, and make recommendations along the way. The patient's overall prognosis remains very guarded. CODE STATUS should be addressed on this patient. The patient's pro-calcitonin level was 0.32. She remains on oxygen at 3 L. Time with Patient: Less than 30
[2023-12-02 16:22] LABS: Glucose,Whole Blood 201 mg/dL (70-110)
[2023-12-02] MEDS: APIXABAN 2.5 MG TABLET PO SCH (17:53)
[2023-12-02 20:06] LABS: Glucose,Whole Blood 214 mg/dL (70-110)
[2023-12-02] MEDS: ATORVASTATIN 10 MG TAB PO SCH (21:01)
[2023-12-02] MEDS: SENNOSIDES-DOCUSATE SODIUM 1 EACH TAB PO SCH (21:01)
[2023-12-02] MEDS: MELATONIN 3 MG TABLET PO SCH (23:10)
[2023-12-03] MEDS: guaiFENesin SYRUP 100MG/5ML 200 MG/10 ML CUP PO SCH ×6 (03:18→20:06)
[2023-12-03] MEDS: AZTREONAM 1 GM in SODIUM CHLORIDE 0.9% 50 ML IVPB SCH ×4 (03:25→20:07)
[2023-12-03] MEDS: diphenhydrAMINE 25 MG CAP PO PRN ×3 (03:25→20:06)
[2023-12-03 06:02] LABS: Glucose,Whole Blood 175 mg/dL (70-110)
[2023-12-03] MEDS: METOCLOPRAMIDE 5 MG TAB PO SCH ×3 (06:52→16:40)
[2023-12-03] MEDS: FUROSEMIDE 10 MG/ML 4 ML VIAL IV SCH (08:47)
[2023-12-03] MEDS: TRIAMCINOLONE 0.1% CREAM 80 GM TUBE TOPICAL SCH ×2 (08:47→20:09)
[2023-12-03] MEDS: POTASSIUM CHLORIDE ER 20 MEQ TAB.ER PO SCH ×2 (08:48→16:40)
[2023-12-03] MEDS: MAGNESIUM OXIDE 400 MG TAB PO SCH ×2 (08:48→16:40)
[2023-12-03] MEDS: CHOLECALCIFEROL 25 MCG (1000 IU) TABLET PO SCH (08:48)
[2023-12-03] MEDS: METOPROLOL TARTRATE 25 MG TAB PO SCH ×2 (08:48→16:40)
[2023-12-03] MEDS: ZINC SULFATE 220 MG CAP PO SCH (08:48)
[2023-12-03] MEDS: ASCORBIC ACID 500 MG TAB PO SCH (08:48)
[2023-12-03] MEDS: APIXABAN 2.5 MG TABLET PO SCH ×2 (08:48→16:40)
[2023-12-03] MEDS: DAPAGLIFLOZIN PROPANEDIOL 5 MG TABLET PO SCH (08:48)
[2023-12-03] MEDS: IPRATROPIUM-ALBUTEROL 3 ML NEB INHALATION SCH ×4 (09:03→22:09)
[2023-12-03 11:34] LABS: Glucose,Whole Blood 164 mg/dL (70-110)
--- NOTE | 2023-12-03 12:08 | P.PN ---
Subjective HISTORY OF PRESENT ILLNESS: This is a 88-year-old female with a past medical history significant for persistent atrial fibrillation, minimal coronary artery disease, valvular heart disease, congestive heart failure, hypertension, and hyperlipidemia. Patient follows in the office with Dr. Delacruz. We have been asked to see the patient in consultation for congestive heart failure. Patient examined at the bedside. Patient presented to the hospital with a chief complaint of cough, shortness of breath, and increased lower extremity edema. She denies any chest pain or pressure. She denies any palpitations. Denies nausea or vomiting. Patient was found to be in acute congestive heart failure was started on IV Lasix. * EKG reveals atrial fibrillation with controlled ventricular rate * Chest xray correlate for CHF with pulmonary vascular congestion. Small to moderate left pleural effusion with adjacent atelectasis and/or consolidation. * Chest CT: Limited assessment for pulmonary embolism. No obvious large central or definite lobar branch pulmonary embolus. Cardiomegaly with prominent refluxing contrast into the hepatic veins suggesting elevated cardiac pressures. Additional patchy opacity of the left base could represent atelectasis or developing infiltrate versus patchy pulmonary edema. * Laboratory data: Troponin negative 1. ProBNP 5140. * Most recent echocardiogram obtained in August 2021 revealed normal ejection fraction, moderate [place], mild TR, mild MR, moderate , and mild AR * Cardiac catheterization history: May 2010 revealing minimal CAD. 12/02/2023 Patient examined this morning at the bedside. Patient's daughter is present. Patient currently denies chest pain or pressure. He she continues to report mild shortness of breath. Patient was hypotensive overnight with a systolic blood pressure in the 70s. She did receive IV fluid bolus with improvement in her blood pressure. Patient's daughter states her blood pressure usually runs on the lower side with a systolic around 90. The patient's daughter also gives additional history that the patient is noncompliant on an outpatient basis. She states she does not take her Lasix as prescribed because she does not want to urinate frequently. She also does not follow a low-sodium diet on an outpatient basis. Echocardiogram completed revealing ejection fraction 40-45%, mild mitral regurgitation, severe pulmonary hypertension, moderate to severe aortic stenosis, and mild TR 12/03/2023 Patient examined this morning at the bedside. Patient is hard of hearing. Patient denies chest pain or pressure. She currently denies shortness of breath. She is on 3 L nasal cannula with oxygen saturations greater than 92%. She remains on IV Lasix 40 mg every 12 hours. Kidney function from this morning is currently pending. Patient continues to have significant lower extremity edema. Vital signs are stable. PHYSICAL EXAM: VITAL SIGNS: Reviewed. GENERAL: Well-developed in no acute distress. HEENT: Head is normocephalic. Pupils are equal, round. Sclerae anicteric. Mucous membranes of the mouth are moist. Neck supple. No JVD or thyromegaly LUNGS: Respirations even and unlabored. Lungs diminished bilaterally HEART: Irregular rate and rhythm. S1 and S2 heard. Pansystolic murmur noted at the right sternal border. ABDOMEN: Soft. Nondistended. Nontender. EXTREMITIES: Normal range of motion. No clubbing or cyanosis. Peripheral pulses intact. 4+ pitting bilateral lower extremity edema NEUROLOGIC: Awake and alert. Oriented x 3. ASSESSMENT: Shortness of breath Possible pneumonia Acute on chronic heart failure with reduced EF, 4045% Valvular heart disease including moderate aortic stenosis Persistent atrial fibrillation Minimal CAD Hypertension Hyperlipidemia Recent diagnosis of Covid19 Debility, bed bound at baseline Diabetes Morbid obesity PLAN: Continue to monitor blood pressure. Patient's blood pressures are around 90 systolic at baseline. Continue IV Lasix 40 mg every 12 hours Awaiting kidney function from this morning Daily weights and accurate I&O Continue additional cardiac medications Elevation of patient's bilateral lower extremities to reduce edema Apply Angel Luis wrap's to bilateral lower extremities Further recommendations pending patient's course Nurse practitioner note has been reviewed by physician. Signing provider agrees with the documented findings, assessment, and plan of care. Objective - Vital Signs Vital signs: Vital Signs Temp 97.6 F 12/03/23 11:49 Pulse 78 12/03/23 11:49 Resp 20 12/03/23 11:49 BP 99/56 12/03/23 11:49 Pulse Ox 100 12/03/23 11:49 FiO2 Intake & Output 12/02/23 12/03/23 12/03/23 18:59 06:59 18:59 Intake Total 690 458 260 Output Total 900 350 300 Balance -210 108 -40 Intake: IV 40 20 Invasive Line 3 20 10 Invasive Line 4 20 10 Oral 690 [id number] 240 Output: Urine 900 350 300 Other: Voiding Method External Catheter External Catheter External Catheter # Voids 1 1 # Bowel Movements 1 - Labs CBC & Chem 7: 12/02/23 07:34 12/02/23 07:34 Labs: Abnormal Lab Results - Last 24 Hours (Table) 12/02/23 12/02/23 12/03/23 Range/Units 16:20 20:04 06:00 POC Glucose (mg/dL) 201 H 214 H 175 H (70-110) mg/dL 12/03/23 Range/Units 11:33 POC Glucose (mg/dL) 164 H (70-110) mg/dL Microbiology - Last 24 Hours (Table) 11/30/23 11:50 Blood Culture - Preliminary Blood 11/30/23 12:05 Blood Culture - Preliminary Blood
[2023-12-03 12:11] LABS: Anisocytosis Slight; HCT 29.9 % (34.0-46.0); HGB 9.1 gm/dL (11.4-16.0); Hypochromasia Marked; MCH 28.2 pg (25.0-35.0); MCHC 30.4 g/dL (31.0-37.0); MCV 92.8 fL (80.0-100.0); Mean Platelet Volume 10.9; Platelet Count 164 k/uL (150-450); RBC 3.22 m/uL (3.80-5.40); RDW 19.2 % (11.5-15.5); WBC 6.6 k/uL (3.8-10.6)
[2023-12-03 12:40] LABS: ALT 13 U/L (4-34); AST 20 U/L (14-36); African American GFR (CKD) 37 (>60 ml/min/1.73 sqM); Albumin 2.9 g/dL (3.5-5.0); Alkaline Phosphatase 77 U/L (38-126); Blood Urea Nitrogen 30 mg/dL (7-17); Calcium 8.1 mg/dL (8.4-10.2); Carbon Dioxide 26 mmol/L (22-30); Glucose 144 mg/dL (74-99); Non-African American GFR(CKD) 32 (>60 ml/min/1.73 sqM); Total Bilirubin 0.5 mg/dL (0.2-1.3); Total Protein 6.3 g/dL (6.3-8.2)
[2023-12-03 12:50] LABS: Anion Gap 8 mmol/L; Chloride 103 mmol/L (98-107); Potassium 4.6 mmol/L (3.5-5.1); Sodium 137 mmol/L (137-145)
--- NOTE | 2023-12-03 13:21 | P.PN ---
Subjective Progress Note Date: 12/03/23 I am seeing this patient in consultation today 12/01/2023 after she was brought in from [facility]. Apparently she tested positive for COVID-19 last week. Since then, she's had difficulty in breathing and weakness. Patient is a 88-year-old white female with past medical history significant for congestive heart failure, chronic lower extremity swelling and prior cellulitis, atrial fibrillation, PE/DVT, diabetes mellitus, hyperlipidema, hypertension, among other things. Patient resides at [facility]. Apparently, she tested positive for COVID-19 last week. She did receive her original COVID-19 vaccination, but without any booster injections. On arrival to the emergency room, she was noted to be short of breath. Requiring more supplemental oxygen than baseline. She was also mildly febrile with a T-max of 100.3F. Interestingly, the patient tested negative for COVID-19 at our facility. Chest x-ray shows cardiomegaly, pulmonary vascular congestion, and probable bilateral small pleural effusions. There is a possible developing left lower lobe infiltrate or atelectasis. D-dimer was elevated. Follow-up chest CTA does not show any obvious large central pulmonary embolism, breathing artifact limits exam. There is cardiomegaly with prominent refluxing contrast and hepatic veins suggestive of failure. There is pulmonary arterial hypertension and small left pleural effusion. There is an additional patchy opacities at the left base which could represent atelectasis or developing pulmonary infiltrate. There may be underlying tracheobronchial malacia. CBC on arrival: WBC count 13, hemoglobin 10.5, hematocrit 33.6, platelets 221. BMP on arrival: Sodium 140, potassium 5.1, chloride 102, serum bicarb 27, BUN 27, creatinine 1.34, glucose 141. Lactic acid level peaked at 3.3. Patient is empirically covered on aztreonam and vancomycin. She also has lower extremity swelling. Left greater than right. Left leg is erythemic. She has history of cellulitis of this extremity. NT proBNP was elevated at 5140. Currently the patient is being diuresed with Lasix 60 mg IV every 12 hours. Patient is currently sitting up in bed, on 5 L/m nasal cannula, in no acute distress. She is hard of hearing. She is not in any respiratory distress, but has a persistent dry nonproductive cough. Patient states that his cough was productive earlier in the week, produ cing creamy sputum. Admits subjective fevers last week when she was diagnosed with COVID-19. Denies any chest pain, hemoptysis. She has been very weak. Patient is mostly bedbound/wheelchair bound while at [facility]. Vital signs are stable. Progress note dated 12/02/2023. This is a 88-year-old female who was seen yesterday in consultation. Please see the note above. The patient resides at one of the local nursing homes. Currently, she is on 3 L of oxygen. Her pro-calcitonin level was 0.32. She continues on vancomycin, and aztreonam. She's treated for possible urinary tract infection, and possible pneumonia. Last night, the charge nurse from the ICU call me twice about this patient, because of low blood pressures. She responded very nicely to fluid resuscitation. Currently, her blood pressure is stable. Laboratory data includes a white count of 8.7, hemoglobin 9.8, hematoc rit 31.1, and a platelet count of 195,000. Sodium 139, potassium 4.8, chlorides 104, CO2 24, BUN 35, creatinine 1.53. The patient is seen today 12/03/2023 in follow-up on the selective care unit. S he is currently resting comfortably in bed. Awake and alert in no acute distress. She is maintaining good O2 saturations in the 90s on 3 L/m per nasal cannula. Bilateral lower extremities were positive for DVT. CT angiogram ruled out pulmonary embolism. Her pro-calcitonin was 0.32. She is continued on vancomycin and aztreonam. She is anticoagulated with Eliquis. White count 6.6. Hemoglobin 9.1. Sodium 137. Potassium 4.6. Bicarb 26. BUN 30. Creatinine 1.46. Glucose 144. She is continued on Lasix 40 mg IV every 12 hours. Remains on bronchodilators. Objective - Vital Signs Vital signs: Vital Signs Temp 97.6 F 12/03/23 11:49 Pulse 58 L 12/03/23 12:53 Resp 20 12/03/23 11:49 BP 99/56 12/03/23 11:49 Pulse Ox 100 12/03/23 11:49 FiO2 Intake & Output 12/02/23 12/03/23 12/03/23 18:59 06:59 18:59 Intake Total 690 458 260 Output Total 900 350 300 Balance -210 108 -40 Intake: IV 40 20 Invasive Line 3 20 10 Invasive Line 4 20 10 Oral 690 [id number] 240 Output: Urine 900 350 300 Other: Voiding Method External Catheter External Catheter External Catheter # Voids 1 1 # Bowel Movements 1 - Exam GENERAL EXAM: Alert, 88-year-old female, morbidly obese, 3 L nasal cannula, comfortable in no apparent distress. HEAD: Normocephalic and atraumatic EYES: Normal reaction of pupils, equal size. NOSE: Clear with pink turbinates. THROAT: No erythema or exudates. NECK: No masses, no JVD. CHEST: No chest wall deformity. LUNGS: Equal air entry with expiratory wheezes heard throughout and a persistent dry nonproductive cough. CVS: S1 and S2 normal with no audible murmur, regular rhythm. No extra heart sounds ABDOMEN: Obese abdomen, no hepatosplenomegaly, active bowel sounds, no guarding or rigidity. SPINE: No scoliosis or deformity SKIN: Left lower extremity erythema and edema CENTRAL NERVOUS SYSTEM: No focal deficits, tone is normal in all 4 extremities. EXTREMITIES: Bilateral lower extremity edema, left greater than right. No clubbing, or cyanosis. Peripheral pulses are intact. - Labs CBC & Chem 7: 12/03/23 11:48 12/03/23 11:48 Labs: Abnormal Lab Results - Last 24 Hours (Table) 12/02/23 12/02/23 12/03/23 Range/Units 16:20 20:04 06:00 RBC (3.80-5.40) m/uL Hgb (11.4-16.0) gm/dL Hct (34.0-46.0) % MCHC (31.0-37.0) g/dL RDW (11.5-15.5) % BUN (7-17) mg/dL Creatinine (0.52-1.04) mg/dL Glucose (74-99) mg/dL POC Glucose (mg/dL) 201 H 214 H 175 H (70-110) mg/dL Calcium (8.4-10.2) mg/dL Albumin (3.5-5.0) g/dL 12/03/23 12/03/23 12/03/23 Range/Units 11:33 11:48 11:48 RBC 3.22 L (3.80-5.40) m/uL Hgb 9.1 L (11.4-16.0) gm/dL Hct 29.9 L (34.0-46.0) % MCHC 30.4 L (31.0-37.0) g/dL RDW 19.2 H (11.5-15.5) % BUN 30 H (7-17) mg/dL Creatinine 1.46 H (0.52-1.04) mg/dL Glucose 144 H (74-99) mg/dL POC Glucose (mg/dL) 164 H (70-110) mg/dL Calcium 8.1 L (8.4-10.2) mg/dL Albumin 2.9 L (3.5-5.0) g/dL Microbiology - Last 24 Hours (Table) 11/30/23 11:50 Blood Culture - Preliminary Blood 11/30/23 12:05 Blood Culture - Preliminary Blood Assessment and Plan Assessment: Acute on chronic hypoxemic respiratory failure, likely multifactorial, secondary to acute on chronic diastolic CHF exacerbation and possible left lower lobe healthcare associated pneumonia. chest CTA does not show any obvious large central pulmonary embolism, breathing artifact limits exam. There is cardiomegaly with prominent refluxing contrast and hepatic veins suggestive of failure. There is pulmonary arterial hypertension and small left pleural effusion. There is an additional patchy opacities at the left base which could represent atelectasis or developing pulmonary infiltrate. There may be underlying tracheobronchial malacia. Recent history of acute COVID-19 infection, PCR negative on admission Leukocytosis Acute kidney injury Chronic lower extremity edema and cellulitis History of osteomyelitis, left great toe diabetes mellitus, type II History DVT/PE Paroxysmal atrial fibrillation, with controlled ventricular response, chronically anticoagulated on Eliquis History of hyperlipidemia History of hypertension Morbid obesity, with a BMI of 36.7 kg/m Thank: The patient was seen and evaluated Labs and medications reviewed Continue diuretics Continue antibiotics Titrate down the FiO2 as tolerated Anticoagulated with Eliquis We will continue to follow I have personally seen and examined the patient, performed the documentation and the assessment and plan as written. Number of minutes spent on the visit: 10.
[2023-12-03] MEDS: SODIUM CHLORIDE 0.9% 1,000 ML IV SCH (15:50)
[2023-12-03] MEDS ORDERED: VANCOMYCIN 1,750 MG in SODIUM CHLORIDE 0.9% 500 ML 500 ML IVPB ONE (16:00)
[2023-12-03 16:04] LABS: Appearance,Urine Clear (Clear); Bacteria,Urine Rare /hpf; Bilirubin,Urine Negative (Negative); Blood,Urine Negative (Negative); Color,Urine Light Yellow; Glucose,Urine (UA) 4+ (Negative); Hyaline Casts,Urine 11 /lpf (0-2); Ketones,Urine Negative (Negative); Leukocyte Esterase,Urine Moderate (Negative); Mucus,Urine Rare /hpf; Nitrite,Urine Negative (Negative); Protein,Urine Negative (Negative); RBC,Urine 3 /hpf (0-5); Specific Gravity,Urine 1.015 (1.001-1.035); Squamous Epithelial Cell,Urine 1 /hpf (0-4); Urobilinogen,Urine <2.0 mg/dL (<2.0); WBC,Urine 3 /hpf (0-5)
[2023-12-03 16:08] LABS: Glucose,Whole Blood 182 mg/dL (70-110)
[2023-12-03] MEDS: INSULIN ASPART (NovoLOG) 100 UNIT/ML VIAL SQ SCH (16:40)
--- NOTE | 2023-12-03 16:43 | P.HPIM ---
History of Present Illness H&P Date: 11/30/23 Chief Complaint: Acute distolic heart failure and left lower lobe pneumonia HISTORY OF PRESENT ILLNESS This is an 88-year-old female patient of mine, with past medical history of PE and DVT, morbid obesity, diabetes mellitus type 2, hypertension, hyperlipidemia, history of spinal stenosis status post surgery in [place], history of small bowel obstruction secondary to incarcerated umbilical hernia status post repair of the hernia with resolution of the bowel obstruction, history of atrial fibrillation, history of chronic diastolic heart failure with significant for hypertension and significant venous hypertension both lower extremities and significant edema, patient patient has been almost in a sedentary lifestyle noncompliant with her diet sitting in her wheelchair most of the day, has been on chronic diuretic use in the form of Lasix 80 mg orally twice every day, patient developed to have Covid 19 infection about a week ago, and patient was not treated with Paxil over the that time because the patient was feeling better, is that she was treated with supportive care including vitamin D vitamin C and zinc sulfate, patient also ended up having pneumonia that was treated with oral antibiotic at [facility], I received a call from the staff at [facility] stated that the patient oxygenation is dropping to the lower 80s and the patient is hypotensive not able to get a temperature so she was instructed to go to the emergency department at [facility], she was seen in the emergency department and she had a chest x-ray that showed pulmonary vascular congestion as well as left lower lobe infiltrate, per protocol [place] level came back elevated suggestive of possible pneumonia due to her ALLERGIES including penicillin and Zithromax and fluoroquinolones I've elected to place the patient on vancomycin as well as Azactam to cover for gram- positive and gram-negative along with anaerobes, patient also did have a CT angiography of the chest because of her atrial fibrillation with the rapid ventricular response that came back negative for PE but it did show evidence of possible left lower lobe infiltrate, patient also did have a venous Doppler of both lower extremity that documented a chronic thrombus. Patient was admitted to the hospital he would she was seen in consultation by cardiology for her heart failure she was also placed on Lasix 60 mg IV push every 12 hours, she was also seen in consultation by pulmonary medicine.. REVIEW OF SYSTEMS Constitutional: Reports no fever or chills, no night sweats. positive for weight change. Reports weakness, Reports fatigue, no lethargy, no daytime sleepiness. HEENT: No headache. No blurred vision or double vision, no loss of vision. No dizziness. No nasal drainage or congestion. No epistaxis. No sore throat, hard of hearing Lungs: positive for shortness of breath, positive for dry cough, no sputum production. positive for wheezing. Cardiovascular: No chest pain, positive for lower extremity edema, positive for palpitations, no paroxysmal nocturnal dyspnea. No orthopnea. No lightheade dness or dizziness. No syncopal episodes. Abdominal: No abdominal pain. positive for nausea, no vomiting. No diarrhea. No constipation. No bloody or tarry stools. Reports loss of appetite. Genitourinary: No dysuria, increased frequency, urgency. No urinary retention, positive for urinary incontinence Musculoskeletal: No myalgias. Reports muscle weakness, Reports gait dysfunction, Reports falls. positive for back pain. No neck pain. Integumentary: Reports wound to the left big toe with significant tissue edema, reports lower extremity redness, there is denuded ulcer to the left big toe Neurologic: No aphasia. No facial droop. No change in mentation. No head injury. No headache. No paralysis. No paresthesia. Psychiatric: positive for depression. No anxiety. No mood swings. Endocrine: positive for abnormal blood sugars. positive for weight change. 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 Gastroesophageal reflux disease Paroxysmal atrial fibrillation Chronic diastolic heart failure Valvular heart disease with severe tricuspid regurgitation, aortic stenosis, mild mitral regurgitation Severe pulmonary hypertension Hypertension Hyperlipidemia Spinal stenosis Morbid obesity Chronic kidney disease stage II Recurrent depression Small bowel obstruction SURGICAL HISTORY Cholecystectomy Bilateral knee replacement Left shoulder replacement Carpal tunnel release Vaginal duct cyst Benign breast surgery Cataract removal and intraocular lens implants Retinal repair left eye Umbilical Hernia repair 2019 Lumbar decompression 2020 SOCIAL HISTORY Patient is a lifelong nonsmoker, no alcohol use, no marijuana or illicit drug use. Patient lives at home with her . FAMILY HISTORY Father at age 101 from natural causes. Mother at age 91 from CVA. Patient has 2 brothers living. She also has 1 son and 2 daughters with no major medical problems. PHYSICAL EXAMINATION Gen: This is an 88-year-old female, sitting up in bed in no apparent distress. HEENT: Head is atraumatic, normocephalic. Pupils equal, round. Sclerae is anicteric, mucous membranes of the mouth are somewhat dry, there is minimal thrush. NECK: Supple. No JVD. No lymphadenopathy. No thyromegaly. LUNGS: Decreased breath sounds at the bases, few rhonchi, minimal expiratory wheezes, no chest wall tenderness, no intercostal retractions. HEART: first heart sound is depressed, second heart sound is normal, irregularly irregular, there is systolic ejection murmur 2/6 located at the left sternal border. ABDOMEN: morbidly obese abdomen, soft nontender nondistended, positive bowel sounds. EXTREMITIES: 2+ bilateral pitting edema to the lower extremities, chronic stasis dermatitis, there is bilateral foot drop. NEUROLOGICAL: Patient is awake, alert and oriented x3. Cranial nerves 2 through 12 are grossly intact significant weakness to both lower extremity his right more than left, bilateral foot drop ASSESSMENT AND PLAN 1. Acute diastolic heart failure. Start the patient Lasix 60 mg IV push every 12 hours, continue patient on metoprolol 25 mg orally twice daily , echocardiogram will be done along with cariology consultation. Continue patient on Farxiga 10 mg po daily 2. Left lower lobe pneumonia. we will start vancomycin pharmacy to dose its peak and trough, also Azactam 2 g IV piggyback every 8 hours, sputum culture, blood culture, urine Legionella antigen. 3. Atrial fibrillation . Continue metoprolol 25 mg orally twice every day, continue patient on Eliquis 5 mg orally twice every day. 4. Anemia of chronic diseases. Stable at this time. 5. History of multiple DVTs and PE on group home anticoagulation. Continue eliquis 5 mg twice daily. Patient recently underwent [place] filter on November 2019 prior to laminectomy surgery. 6. Valvular heart disease with severe tricuspid regurgitation, aortic stenosis with mean gradient of 36 mmHg, mild mitral regurgitation. 7. Severe pulmonary hypertension with RVSP 60 mmHg. continue patient on Metoprolol 25 mg orally bid continue patient on Lasix 60 mg IVP twice every day. 8. Hypertension and hypertensive cardiovascular disease. Continue patient on Metoprolol 25 mg po bid, we will continue to monitor BP very closely 9. Hyperlipidemia. Continue atorvastatin 10 mg at bedtime. 10. Diabetes mellitus type 2. Continue patient on Farxiga 10 mg po daily, Trul icity 1.5 mg SC q week , along with SSI. 11. Spinal stenosis status post laminectomy, stable. 12. Recurrent depression. Continue patient on Effexor 75 mg orally once every day. 13. Gastroesophageal reflux disease and GI prophylaxis. Protonix 40 mg po daily. 14. DVT prophylaxis. Eliquis 5 mg orally twice every day. 15. Admit to inpatient. Estimated length of stay 2 midnights. 16. Full code. 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 lt leg gives out wears brace History of Any Multi-Drug Resistant Organisms: MRSA Date of last positivie culture/infection: 01/22/22 MDRO Source:: Left Leg Past Surgical History: Back Surgery, Breast Surgery, Cholecystectomy, Joint Replacement, Orthopedic Surgery Additional Past Surgical History / Comment(s): thelma knee replac; L shoulder replac.; carpel tunnel vaginal duct cyst; benign breast surg; cataracts; retinal repair left eye. BAck surgery, hernia repair Past Anesthesia/Blood Transfusion Reactions: No Reported Reaction Past Psychological History: Depression Smoking Status: Never smoker Past Alcohol Use History: None Reported Past Drug Use History: None Reported - Past Family History Father Family Medical History: Deep Vein Thrombosis (DVT) Son(s) Family Medical History: Deep Vein Thrombosis (DVT) Mother Family Medical History: Cancer Additional Family Medical History / Comment(s): Mother had cancer in her back. Daughter(s) Family Medical History: Blood Disorder Additional Family Medical History / Comment(s): Daughter has MTHFR factor and pt's grandson has lyme factor V and grand daughter has MTHFR. Medications and Allergies Home Medications Medication Instructions Recorded Confirmed Type Simvastatin [Zocor] 10 mg PO HS 08/25/17 11/30/23 History metFORMIN HCL [Glucophage] 1,000 mg PO BID@0800,1600 08/25/17 11/30/23 History Potassium Chloride [Klor-Con 20] 20 meq PO BID@0800,1600 08/19/19 11/30/23 History Apixaban [Eliquis] 5 mg PO BID@0800,1600 12/13/19 11/30/23 History Furosemide [Lasix] 80 mg PO BID@0800,1600 07/01/21 11/30/23 History Empagliflozin [Jardiance] 10 mg PO DAILY@0800 01/21/22 11/30/23 History Dulaglutide [Trulicity] 1.5 mg SQ FR 01/12/23 11/30/23 History Acetaminophen [Tylenol] 650 mg PO Q4H PRN 11/30/23 11/30/23 History Ascorbic Acid [Vitamin C] 500 mg PO DAILY@0800 11/30/23 11/30/23 History Cholecalciferol [Vitamin D3 (25 75 mcg PO DAILY 11/30/23 11/30/23 History Mcg = 1000 Iu)] Ibuprofen [Motrin] 600 mg PO Q6H PRN 11/30/23 11/30/23 History Magnesium Oxide [Mag-Ox] 250 mg PO BID@0800,1600 11/30/23 11/30/23 History Melatonin 3 mg PO HS 11/30/23 11/30/23 History Metoclopramide HCl [Reglan] 5 mg PO AC-TID 11/30/23 11/30/23 History Metoprolol Tartrate [Lopressor] 25 mg PO BID@0800,1600 11/30/23 11/30/23 History Ondansetron [Zofran] 4 mg PO Q6H PRN 11/30/23 11/30/23 History Sennosides/Docusate Sodium [Senna 2 tab PO HS 11/30/23 11/30/23 History Plus 8.6-50 mg Tablet] Zinc Sulfate [Orazinc] 220 mg PO DAILY@0800 11/30/23 11/30/23 History guaiFENesin [guaiFENesin Oral 200 mg PO Q4H PRN 11/30/23 11/30/23 History Solution] Allergies Allergy/AdvReac Type Severity Reaction Status Date / Time Penicillins Allergy Rash/Hives Verified 11/30/23 12:55 azithromycin AdvReac Dyspnea & Verified 11/30/23 12:55 nausea ciprofloxacin [From Cipro] AdvReac Dyspnea & Verified 11/30/23 12:55 nausea Physical Exam Vitals: Vital Signs Temp Pulse Resp BP Pulse Ox 11/30/23 14:00 100.0 F H 108 H 30 H 114/67 95 11/30/23 13:31 113 H 34 H 137/96 88 L 11/30/23 13:00 103 H 30 H 123/76 95 11/30/23 12:30 106 H 28 H 104/49 96 11/30/23 11:43 100.3 F H 100 20 130/72 89 L Intake and Output 11/30/23 11/30/23 11/30/23 06:59 14:59 22:59 Other: Weight 115.212 kg Results CBC & Chem 7: 12/03/23 11:48 12/03/23 11:48 Labs: Abnormal Lab Results - Last 24 Hours (Table) 11/30/23 11/30/23 11/30/23 Range/Units 11:50 11:50 11:50 WBC 13.0 H (3.8-10.6) k/uL RBC 3.73 L (3.80-5.40) m/uL Hgb 10.5 L (11.4-16.0) gm/dL Hct 33.6 L (34.0-46.0) % RDW 19.3 H (11.5-15.5) % Neutrophils # 11.3 H (1.3-7.7) k/uL Lymphocytes # 0.8 L (1.0-4.8) k/uL D-Dimer 1.50 H (<0.60) mg/L FEU BUN 27 H (7-17) mg/dL Creatinine 1.34 H (0.52-1.04) mg/dL Glucose 141 H (74-99) mg/dL Plasma Lactic Acid Afshin (0.7-2.0) mmol/L Magnesium 2.4 H (1.6-2.3) mg/dL 11/30/23 11/30/23 Range/Units 11:50 15:16 WBC (3.8-10.6) k/uL RBC (3.80-5.40) m/uL Hgb (11.4-16.0) gm/dL Hct (34.0-46.0) % RDW (11.5-15.5) % Neutrophils # (1.3-7.7) k/uL Lymphocytes # (1.0-4.8) k/uL D-Dimer (<0.60) mg/L FEU BUN (7-17) mg/dL Creatinine (0.52-1.04) mg/dL Glucose (74-99) mg/dL Plasma Lactic Acid Afshin 2.5 H* 2.4 H* (0.7-2.0) mmol/L Magnesium (1.6-2.3) mg/dL
--- NOTE | 2023-12-03 16:47 | P.PN ---
Subjective Progress Note Date: 12/01/23 HISTORY OF PRESENT ILLNESS This is an 88-year-old female patient of [facility], with past medical history of PE and DVT, morbid obesity, diabetes mellitus type 2, hypertension, hyperlipidemia, history of spinal stenosis status post surgery in [place], history of small bowel obstruction secondary to incarcerated umbilical hernia status post repair of the hernia with resolution of the bowel obstruction, history of atrial fibrillation, history of chronic diastolic heart failure with significant for hypertension and significant venous hypertension both lower extremities and significant edema, patient patient has been almost in a sedentary lifestyle noncompliant with her diet sitting in her wheelchair most of the day, has been on chronic diuretic use in the form of Lasix 80 mg orally twice every day, patient developed to have Covid 19 infection about a week ago, and patient was not treated with Paxil over the that time because the patient was feeling better, is that she was treated with supportive care including vitamin D vitamin C and zinc sulfate, patient also ended up having pneumonia that was treated with oral antibiotic at [facility], I received a call from the staff at [facility] stated that the patient oxygenation is dropping to the lower 80s and the patient is hypotensive not able to get a temperature so she was instructed to go to the emergency department at [facility], she was seen in the emergency department and she had a chest x-ray that showed pulmonary vascular congestion as well as left lower lobe infiltrate, per protocol [place] level came back elevated suggestive of possible pneumonia due to her ALLERGIES including penicillin and Zithromax and fluoroquinolones I've elected to place the patient on vancomycin as well as Azactam to cover for gram- positive and gram-negative along with anaerobes, patient also did have a CT angiography of the chest because of her atrial fibrillation with the rapid ventricular response that came back negative for PE but it did show evidence of possible left lower lobe infiltrate, patient also did have a venous Doppler of both lower extremity that documented a chronic thrombus. Patient was admitted to the hospital he would she was seen in consultation by cardiology for her heart failure she was also placed on Lasix 60 mg IV push every 12 hours, she was also seen in consultation by pulmonary medicine. 12/01: Patient is laying down in bed is feeling a bit better today, she continues to be so short of breath, she continues to have some coughing, she has been maintained on the IV Lasix 60 mg IV push every 12 hours however she appears to be a bit hypotensive we will decrease at 40 mg IV push every 12 hours, patient also continues to be on vancomycin and is active her pneumonia has been seen in consultation by cardiology as well as pulmonary medicine we will continue current treatment plan, continue oxygen support, try to wean her oxygen down, continue with input and output and daily weight. REVIEW OF SYSTEMS Constitutional: Reports no fever or chills, no night sweats. positive for weight change. Reports weakness, Reports fatigue, no lethargy, no daytime sleepiness. HEENT: No headache. No blurred vision or double vision, no loss of vision. No dizziness. No nasal drainage or congestion. No epistaxis. No sore throat, hard of hearing Lungs: positive for shortness of breath, positive for dry cough, no sputum pro duction. positive for wheezing. Cardiovascular: No chest pain, positive for lower extremity edema, positive for palpitations, no paroxysmal nocturnal dyspnea. No orthopnea. No lightheadedness or dizziness. No syncopal episodes. Abdominal: No abdominal pain. positive for nausea, no vomiting. No diarrhea. No constipation. No bloody or tarry stools. Reports loss of appetite. Genitourinary: No dysuria, increased frequency, urgency. No urinary retention, positive for urinary incontinence Musculoskeletal: No myalgias. Reports muscle weakness, Reports gait dysfunction, Reports falls. positive for back pain. No neck pain. Integumentary: Reports wound to the left big toe with significant tissue edema, reports lower extremity redness, there is denuded ulcer to the left big toe Neurologic: No aphasia. No facial droop. No change in mentation. No head injury. No headache. No paralysis. No paresthesia. Psychiatric: positive for depression. No anxiety. No mood swings. Endocrine: positive for abnormal blood sugars. positive for weight change. PHYSICAL EXAMINATION Gen: This is an 88-year-old female, sitting up in bed in no apparent distress. HEENT: Head is atraumatic, normocephalic. Pupils equal, round. Sclerae is anicteric, mucous membranes of the mouth are somewhat dry, there is minimal thrush. NECK: Supple. No JVD. No lymphadenopathy. No thyromegaly. LUNGS: Decreased breath sounds at the bases, few rhonchi, minimal expiratory wheezes, no chest wall tenderness, no intercostal retractions. HEART: first heart sound is depressed, second heart sound is normal, irregularly irregular, there is systolic ejection murmur 2/6 located at the left sternal border. ABDOMEN: morbidly obese abdomen, soft nontender nondistended, positive bowel sounds. EXTREMITIES: 2+ bilateral pitting edema to the lower extremities, chronic stasis dermatitis, there is bilateral foot drop. NEUROLOGICAL: Patient is awake, alert and oriented x3. Cranial nerves 2 through 12 are grossly intact significant weakness to both lower extremity his right more than left, bilateral foot drop ASSESSMENT AND PLAN 1. Acute diastolic heart failure. we will decrease the patient Lasix to 40 mg IV push every 12 hours, continue patient on metoprolol 25 mg orally twice daily , echocardiogram will be done along with cardiology consultation. Continue patient on Farxiga 10 mg po daily 2. Left lower lobe pneumonia. continue vancomycin pharmacy to dose its peak and trough, also Azactam 2 g IV piggyback every 8 hours, sputum culture, blood culture, urine Legionella antigen. 3. Atrial fibrillation . Continue metoprolol 25 mg orally twice every day, continue patient on Eliquis 5 mg orally twice every day. 4. Anemia of chronic diseases. Stable at this time. 5. 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 Continue eliquis 5 mg twice daily. Patient recently underwent [place] filter on November 2019 prior to laminectomy surgery. 6. Valvular heart disease with severe tricuspid regurgitation, aortic stenosis with mean gradient of 36 mmHg, mild mitral regurgitation. 7. Severe pulmonary hypertension with RVSP 60 mmHg. continue patient on Metoprolol 25 mg orally bid continue patient on Lasix 60 mg IVP twice every day. 8. Hypertension and hypertensive cardiovascular disease. Continue patient on Metoprolol 25 mg po bid, we will continue to monitor BP very closely 9. Hyperlipidemia. Continue atorvastatin 10 mg at bedtime. 10. Diabetes mellitus type 2. Continue patient on Farxiga 10 mg po daily, Trulicity 1.5 mg SC q week , along with SSI. 11. Spinal stenosis status post laminectomy, stable. 12. Recurrent depression. Continue patient on Effexor 75 mg orally once every day. 13. Gastroesophageal reflux disease and GI prophylaxis. Protonix 40 mg po daily. 14. DVT prophylaxis. Eliquis 5 mg orally twice every day. 15. Hypotensive episode likely related to aggressive diuresis as well as orthostatic hypotension patient will be started on midodrine 10 mg orally 3 times every day, Patient did receive 1 L bolus and then she is currently on IV diuretics. We will encourage the placement of bilateral Angel Luis wraps. 16. Overall prognosis is guarded. Objective - Vital Signs Vital signs: Vital Signs Temp 97.7 F 12/03/23 16:35 Pulse 89 12/03/23 16:35 Resp 20 12/03/23 16:35 BP 91/62 12/03/23 16:35 Pulse Ox 98 12/03/23 16:35 FiO2 Intake & Output 12/02/23 12/03/23 12/03/23 18:59 06:59 18:59 Intake Total 690 458 260 Output Total 900 350 525 Balance -210 108 -265 Intake: IV 40 20 Invasive Line 3 20 10 Invasive Line 4 20 10 Oral 690 418 240 Output: Urine 900 350 525 Other: Voiding Method External Catheter External Catheter External Catheter # Voids 1 1 # Bowel Movements 1 - Labs CBC & Chem 7: 12/03/23 11:48 12/03/23 11:48 Labs: Abnormal Lab Results - Last 24 Hours (Table) 12/02/23 12/03/23 12/03/23 Range/Units 20:04 06:00 11:33 RBC (3.80-5.40) m/uL Hgb (11.4-16.0) gm/dL Hct (34.0-46.0) % MCHC (31.0-37.0) g/dL RDW (11.5-15.5) % BUN (7-17) mg/dL Creatinine (0.52-1.04) mg/dL Glucose (74-99) mg/dL POC Glucose (mg/dL) 214 H 175 H 164 H (70-110) mg/dL Calcium (8.4-10.2) mg/dL Albumin (3.5-5.0) g/dL Urine Glucose (UA) (Negative) Ur Leukocyte Esterase (Negative) Urine Bacteria (None) /hpf Hyaline Casts (0-2) /lpf Urine Mucus (None) /hpf 12/03/23 12/03/23 12/03/23 Range/Units 11:48 11:48 15:40 RBC 3.22 L (3.80-5.40) m/uL Hgb 9.1 L (11.4-16.0) gm/dL Hct 29.9 L (34.0-46.0) % MCHC 30.4 L (31.0-37.0) g/dL RDW 19.2 H (11.5-15.5) % BUN 30 H (7-17) mg/dL Creatinine 1.46 H (0.52-1.04) mg/dL Glucose 144 H (74-99) mg/dL POC Glucose (mg/dL) (70-110) mg/dL Calcium 8.1 L (8.4-10.2) mg/dL Albumin 2.9 L (3.5-5.0) g/dL Urine Glucose (UA) 4+ H (Negative) Ur Leukocyte Esterase Moderate H (Negative) Urine Bacteria Rare H (None) /hpf Hyaline Casts 11 H (0-2) /lpf Urine Mucus Rare H (None) /hpf 12/03/23 Range/Units 16:05 RBC (3.80-5.40) m/uL Hgb (11.4-16.0) gm/dL Hct (34.0-46.0) % MCHC (31.0-37.0) g/dL RDW (11.5-15.5) % BUN (7-17) mg/dL Creatinine (0.52-1.04) mg/dL Glucose (74-99) mg/dL POC Glucose (mg/dL) 182 H (70-110) mg/dL Calcium (8.4-10.2) mg/dL Albumin (3.5-5.0) g/dL Urine Glucose (UA) (Negative) Ur Leukocyte Esterase (Negative) Urine Bacteria (None) /hpf Hyaline Casts (0-2) /lpf Urine Mucus (None) /hpf Microbiology - Last 24 Hours (Table) 11/30/23 12:05 Blood Culture - Preliminary Blood 11/30/23 11:50 Blood Culture - Preliminary Blood
[2023-12-03] MEDS ORDERED: ZINC OXIDE PASTE (Z-GUARD) 1 APPLIC TOPICAL PRN (18:18)
[2023-12-03] MEDS: SENNOSIDES-DOCUSATE SODIUM 1 EACH TAB PO SCH (20:06)
[2023-12-03] MEDS: ATORVASTATIN 10 MG TAB PO SCH (20:06)
[2023-12-03 20:56] LABS: Glucose,Whole Blood 129 mg/dL (70-110)
--- NOTE | 2023-12-03 23:04 | P.CONS ---
History of Present Illness - Reason for Consult Consult date: 12/03/23 Antibiotic management Requesting physician: India Conway - Chief Complaint Rash and itching x 1 day - History of Present Illness Patient is a 88-year-old female with a past medical history significant for diabetes mellitus hypertension hyperlipidemia osteoarthritis reflux presenting to the hospital 3 days ago from the local long-term for evaluation of difficulty breathing apparently patient tested positive for COVID- 19 few days ago before the patient was brought into the hospital patient be complaining of feeling weak no headache or URI symptoms denies any chest pain she did have mild to moderate cough but not bring up any sputum patient denies having any abdominal pain and no diarrhea patient on presentation to the hospital did have a low-grade fever 100.3 F that has subsequently resolved, patient did have occasional tachycardia mildly hypotensive and hypoxic requiring supplemental oxygen, patient did have a white count of 13,000 admission ro bsequent normalized BUN/creatinine has been mildly elevated does observe normal procalcitonin 0.32 urine has been positive vancomycin random of 20.2 influenza RSV COVID testing was negative blood cultures so far negative no urine culture was done patient did have a CT angiogram of the chest bleeding due to the skin limits assessment for PE cardiomegaly with prominent reflux contrast concerning for pulmonary hypertension patchy opacity lung base atelectasis or developing infiltrate patient has been treated with Azactam and vancomycin to develop a rash to the upper chest area describing it to be itching denies any difficulty breathing or tongue swelling, infectious disease was consulted for further management of antibiotic therapy Review of Systems Positive point and negatives has been mentioned in the HPI, complete review of systems was performed and all other systems are negative Past Medical History Past Medical History: Blood Disorder, Diabetes Mellitus, Deep Vein Thrombosis (DVT), GERD/Reflux, Hyperlipidemia, Hypertension, Osteoarthritis (OA), Pneumonia, Pulmonary Embolus (PE), Renal Disease Additional Past Medical History / Comment(s): Hx of PE & DVT, mass on right kidney, cellulitis BLE, falls at home, spinal stenosis status post laminectomy. lt leg gives out wears brace History of Any Multi-Drug Resistant Organisms: MRSA Year Discovered:: 01/22/22 MDRO Source:: Left Leg Past Surgical History: Back Surgery, Breast Surgery, Cholecystectomy, Joint Replacement, Orthopedic Surgery Additional Past Surgical History / Comment(s): thelma knee replac; L shoulder replac.; carpel tunnel vaginal duct cyst; benign breast surg; cataracts; retinal repair left eye. BAck surgery, hernia repair Past Anesthesia/Blood Transfusion Reactions: No Reported Reaction Past Psychological History: Depression Smoking Status: Never smoker Past Alcohol Use History: None Reported Past Drug Use History: None Reported - Past Family History Father Family Medical History: Deep Vein Thrombosis (DVT) Son(s) Family Medical History: Deep Vein Thrombosis (DVT) Mother Family Medical History: Cancer Additional Family Medical History / Comment(s): Mother had cancer in her back. Daughter(s) Family Medical History: Blood Disorder Additional Family Medical History / Comment(s): Daughter has MTHFR factor and pt's grandson has lyme factor V and grand daughter has MTHFR. Medications and Allergies Home Medications Medication Instructions Recorded Confirmed Type Simvastatin [Zocor] 10 mg PO HS 08/25/17 11/30/23 History Acetaminophen [Tylenol] 650 mg PO Q4H PRN 11/30/23 11/30/23 History Ascorbic Acid [Vitamin C] 500 mg PO DAILY@0800 11/30/23 11/30/23 History Cholecalciferol [Vitamin D3 (25 75 mcg PO DAILY 11/30/23 11/30/23 History Mcg = 1000 Iu)] Magnesium Oxide [Mag-Ox] 250 mg PO BID@0800,1600 11/30/23 11/30/23 History Melatonin 3 mg PO HS 11/30/23 11/30/23 History Metoclopramide HCl [Reglan] 5 mg PO AC-TID 11/30/23 11/30/23 History Metoprolol Tartrate [Lopressor] 25 mg PO BID@0800,1600 11/30/23 11/30/23 History Ondansetron [Zofran] 4 mg PO Q6H PRN 11/30/23 11/30/23 History Sennosides/Docusate Sodium [Senna 2 tab PO HS 11/30/23 11/30/23 History Plus 8.6-50 mg Tablet] guaiFENesin [guaiFENesin Oral 200 mg PO Q4H PRN 11/30/23 11/30/23 History Solution] Apixaban [Eliquis] 2.5 mg PO BID@0800,1600 tab 12/06/23 Rx Budesonide [Pulmicort] 1 mg INHALATION RT-BID 14 Days ml 12/06/23 Rx Bumetanide [BUMEX] 1 mg PO DAILY tab 12/06/23 Rx Dapagliflozin Propanediol [Farxiga] 5 mg PO DAILY@0800 tab 12/06/23 Rx Dulaglutide [Trulicity] 1.5 mg SQ FR 12/06/23 Rx INSULIN ASPART (NovoLOG) [NovoLOG 0 unit SQ ACHS each 12/06/23 Rx (formulary)] Ipratropium-Albuterol Nebulize 3 ml INHALATION RT-QID each 12/06/23 Rx [Duoneb 0.5 mg-3 mg/3 ml Soln] Lactulose [Cephulac] 20 gm PO BID ml 12/06/23 Rx Pantoprazole [Protonix] 40 mg PO AC-BRKFST tab 12/06/23 Rx Potassium Chloride ER [K-Dur 20] 20 meq PO DAILY #0 tab 12/06/23 Rx Triamcinolone 0.1% Cream [Kenalog 1 applic TOPICAL BID each 12/06/23 Rx 0.1% Cream] diphenhydrAMINE [Benadryl] 25 mg PO TID PRN cap 12/06/23 Rx Allergies Allergy/AdvReac Type Severity Reaction Status Date / Time Penicillins Allergy Rash/Hives Verified 11/30/23 12:55 azithromycin AdvReac Dyspnea & Verified 11/30/23 12:55 nausea ciprofloxacin [From Cipro] AdvReac Dyspnea & Verified 11/30/23 12:55 nausea Physical Exam Vitals: Vital Signs Temp Pulse Pulse Pulse Resp BP BP 12/03/23 12:53 58 L 12/03/23 12:41 55 L 12/03/23 11:49 97.6 F 78 20 137/71 99/56 12/03/23 09:16 86 12/03/23 09:06 12/03/23 09:03 88 12/03/23 08:32 97.8 F 86 22 91/58 12/03/23 03:45 98.1 F 93 20 95/59 12/03/23 00:55 88 18 12/03/23 00:00 98.6 F 91 20 95/59 12/02/23 23:45 85/55 12/02/23 21:23 80 12/02/23 21:13 78 12/02/23 21:10 87 20 94/60 12/02/23 20:16 98.3 F 87 20 83/51 12/02/23 17:03 76 12/02/23 16:51 72 12/02/23 16:00 91 18 89/54 Pulse Ox 12/03/23 12:53 12/03/23 12:41 12/03/23 11:49 100 12/03/23 09:16 12/03/23 09:06 94 L 12/03/23 09:03 12/03/23 08:32 94 L 12/03/23 03:45 93 L 12/03/23 00:55 12/03/23 00:00 97 12/02/23 23:45 12/02/23 21:23 12/02/23 21:13 12/02/23 21:10 12/02/23 20:16 100 12/02/23 17:03 12/02/23 16:51 12/02/23 16:00 96 Intake and Output 12/03/23 12/03/23 12/03/23 06:59 14:59 22:59 Intake Total 438 260 Output Total 350 300 Balance 88 -40 Intake: IV 20 20 Invasive Line 3 10 10 Invasive Line 4 10 10 Oral 418 240 Output: Urine 350 300 Other: Voiding Method External Catheter External Catheter # Voids 1 1 GENERAL DESCRIPTION: Elderly female lying in bed, no distress. No tachypnea or accessory muscle of respiration use. HEENT: Shows Pallor , no scleral icterus. Oral mucous membrane is dry. No pharyngeal erythema or thrush NECK: Trachea central, no thyromegaly. LUNGS: Unlabored breathing. Decreased breath sound at the base. No wheeze or crackle. HEART: S1, S2, regular rate and rhythm. No loud murmur ABDOMEN: Soft, no tenderness , guarding or rigidity, no organomegaly EXTREMITIES: Diffuse swelling bilateral lower extremity SKIN: Generalized maculopapular rash to the upper chest NEUROLOGICAL: The patient is awake, alert, oriented x3, mood and affect normal. Results CBC & Chem 7: 12/05/23 06:45 12/05/23 06:45 Labs: Abnormal Lab Results - Last 24 Hours (Table) 12/02/23 12/02/23 12/03/23 Range/Units 16:20 20:04 06:00 RBC (3.80-5.40) m/uL Hgb (11.4-16.0) gm/dL Hct (34.0-46.0) % MCHC (31.0-37.0) g/dL RDW (11.5-15.5) % BUN (7-17) mg/dL Creatinine (0.52-1.04) mg/dL Glucose (74-99) mg/dL POC Glucose (mg/dL) 201 H 214 H 175 H (70-110) mg/dL Calcium (8.4-10.2) mg/dL Albumin (3.5-5.0) g/dL 12/03/23 12/03/23 12/03/23 Range/Units 11:33 11:48 11:48 RBC 3.22 L (3.80-5.40) m/uL Hgb 9.1 L (11.4-16.0) gm/dL Hct 29.9 L (34.0-46.0) % MCHC 30.4 L (31.0-37.0) g/dL RDW 19.2 H (11.5-15.5) % BUN 30 H (7-17) mg/dL Creatinine 1.46 H (0.52-1.04) mg/dL Glucose 144 H (74-99) mg/dL POC Glucose (mg/dL) 164 H (70-110) mg/dL Calcium 8.1 L (8.4-10.2) mg/dL Albumin 2.9 L (3.5-5.0) g/dL Microbiology - Last 24 Hours (Table) 11/30/23 12:05 Blood Culture - Preliminary Blood 11/30/23 11:50 Blood Culture - Preliminary Blood Assessment and Plan (1) Allergy to multiple antibiotics Status: Acute Code(s): Z88.1 - ALLERGY STATUS TO OTHER ANTIBIOTIC AGENTS SNOMED Code(s): 727259565 (2) Drug rash Status: Acute Code(s): L27.0 - GEN SKIN ERUPTION DUE TO DRUGS AND MEDS TAKEN INTERNALLY SNOMED Code(s): 37727588 Plan: 1-patient developing a rash to the upper chest area along with itching likely "red man" syndrome related to the vancomycin which has been discontinued 2-patient with initially presented to hospital with weakness shortness of breath did have a low-grade fever elevated white count concern for possible UTI the pat ient did have positive UA CT angiogram mention question of pneumonia however the procalcitonin is significantly elevated 3-for now we will keep the patient on Azactam however check a repeat UA which if clear may be able to discontinue Azactam as well Multiple family members at the bedside question concern answered We will follow on clinical condition and cultures to further adjust medication if needed Thank you for this consultation we will follow the patient along with you Dictation was produced using [employer] dictation software. please excuse any grammatical, word or spelling errors. Time with Patient: Greater than 30
[2023-12-04] MEDS: INSULIN ASPART (NovoLOG) 100 UNIT/ML VIAL SQ SCH ×5 (00:08→21:30)
[2023-12-04] MEDS: MELATONIN 3 MG TABLET PO SCH ×2 (00:31→21:30)
[2023-12-04] MEDS: diphenhydrAMINE 25 MG CAP PO PRN ×2 (03:33→21:22)
[2023-12-04] MEDS: guaiFENesin SYRUP 100MG/5ML 200 MG/10 ML CUP PO SCH ×6 (03:37→21:22)
[2023-12-04] MEDS: AZTREONAM 1 GM in SODIUM CHLORIDE 0.9% 50 ML IVPB SCH ×2 (04:47→13:01)
[2023-12-04 06:30] LABS: Glucose,Whole Blood 147 mg/dL (70-110)
[2023-12-04] MEDS: METOCLOPRAMIDE 5 MG TAB PO SCH ×3 (06:36→16:50)
[2023-12-04] MEDS: MAGNESIUM OXIDE 400 MG TAB PO SCH ×2 (08:38→16:50)
[2023-12-04] MEDS: METOPROLOL TARTRATE 25 MG TAB PO SCH ×2 (08:38→16:50)
[2023-12-04] MEDS: ZINC SULFATE 220 MG CAP PO SCH (08:38)
[2023-12-04] MEDS: APIXABAN 2.5 MG TABLET PO SCH ×2 (08:38→16:50)
[2023-12-04] MEDS: ASCORBIC ACID 500 MG TAB PO SCH (08:38)
[2023-12-04] MEDS: DAPAGLIFLOZIN PROPANEDIOL 5 MG TABLET PO SCH (08:38)
[2023-12-04] MEDS: POTASSIUM CHLORIDE ER 20 MEQ TAB.ER PO SCH ×2 (08:38→16:50)
[2023-12-04] MEDS: FUROSEMIDE 10 MG/ML 4 ML VIAL IV SCH (08:38)
[2023-12-04] MEDS: CHOLECALCIFEROL 25 MCG (1000 IU) TABLET PO SCH (08:38)
[2023-12-04] MEDS: TRIAMCINOLONE 0.1% CREAM 80 GM TUBE TOPICAL SCH ×2 (08:39→21:22)
[2023-12-04] MEDS: IPRATROPIUM-ALBUTEROL 3 ML NEB INHALATION SCH ×4 (08:49→20:58)
--- NOTE | 2023-12-04 10:07 | P.PN ---
Subjective Progress Note Date: 12/04/23 Principal diagnosis: Heart failure The patient is an 88-year-old female patient with cardiomyopathy and aortic stenosis as well as diabetes and hypertension and dyslipidemia permanent atrial fibrillation was admitted to the hospital with acute respiratory failure secondary to pneumonia and CHF. She was seen and evaluated this morning. She still short of breath. She stated have bilateral lower extremity edema. Her pressure is marginal. She is on Lasix IV which has increased yesterday. Would advise continue patient on IV Lasix for additional 24 hours. Continue monitor the blood pressure. Continue monitor the kidney function and electrolytes. Creatinine has been stable. Examination is remarkable for severe bilateral lower extremity edema and diminished breathing sounds bilaterally and irregular rhythm with a systolic murmur Assessment Heart failure exacerbation secondary to systolic dysfunction Permanent atrial fibrillation with controlled heart rate Aortic stenosis Heart failure Multiple comorbid conditions Plan Continue current dose of Lasix IV Consider decreasing dose of Lasix IV if the pressure drop Continue oral anticoagulation Continue monitor the kidney function and electrolytes Follow-up with the patient Objective - Vital Signs Vital signs: Vital Signs Temp 98.6 F 12/04/23 08:21 Pulse 80 12/04/23 09:02 Resp 22 12/04/23 08:21 BP 93/59 12/04/23 08:21 Pulse Ox 96 12/04/23 08:51 FiO2 Intake & Output 12/03/23 12/04/23 12/04/23 18:59 06:59 18:59 Intake Total 500 128 20 Output Total 525 200 Balance -25 -72 20 Weight 100 kg Intake: IV 20 10 20 Invasive Line 3 10 10 10 Invasive Line 4 10 10 Oral 480 118 Output: Urine 525 200 Other: Voiding Method External Catheter External Catheter # Voids 1 1 - Labs CBC & Chem 7: 12/03/23 11:48 12/03/23 11:48 Labs: Abnormal Lab Results - Last 24 Hours (Table) 12/03/23 12/03/23 12/03/23 Range/Units 11:33 11:48 11:48 RBC 3.22 L (3.80-5.40) m/uL Hgb 9.1 L (11.4-16.0) gm/dL Hct 29.9 L (34.0-46.0) % MCHC 30.4 L (31.0-37.0) g/dL RDW 19.2 H (11.5-15.5) % BUN 30 H (7-17) mg/dL Creatinine 1.46 H (0.52-1.04) mg/dL Glucose 144 H (74-99) mg/dL POC Glucose (mg/dL) 164 H (70-110) mg/dL Calcium 8.1 L (8.4-10.2) mg/dL Albumin 2.9 L (3.5-5.0) g/dL Urine Glucose (UA) (Negative) Ur Leukocyte Esterase (Negative) Urine Bacteria (None) /hpf Hyaline Casts (0-2) /lpf Urine Mucus (None) /hpf 12/03/23 12/03/23 12/03/23 Range/Units 15:40 16:05 20:54 RBC (3.80-5.40) m/uL Hgb (11.4-16.0) gm/dL Hct (34.0-46.0) % MCHC (31.0-37.0) g/dL RDW (11.5-15.5) % BUN (7-17) mg/dL Creatinine (0.52-1.04) mg/dL Glucose (74-99) mg/dL POC Glucose (mg/dL) 182 H 129 H (70-110) mg/dL Calcium (8.4-10.2) mg/dL Albumin (3.5-5.0) g/dL Urine Glucose (UA) 4+ H (Negative) Ur Leukocyte Esterase Moderate H (Negative) Urine Bacteria Rare H (None) /hpf Hyaline Casts 11 H (0-2) /lpf Urine Mucus Rare H (None) /hpf 12/04/23 Range/Units 06:29 RBC (3.80-5.40) m/uL Hgb (11.4-16.0) gm/dL Hct (34.0-46.0) % MCHC (31.0-37.0) g/dL RDW (11.5-15.5) % BUN (7-17) mg/dL Creatinine (0.52-1.04) mg/dL Glucose (74-99) mg/dL POC Glucose (mg/dL) 147 H (70-110) mg/dL Calcium (8.4-10.2) mg/dL Albumin (3.5-5.0) g/dL Urine Glucose (UA) (Negative) Ur Leukocyte Esterase (Negative) Urine Bacteria (None) /hpf Hyaline Casts (0-2) /lpf Urine Mucus (None) /hpf Microbiology - Last 24 Hours (Table) 11/30/23 11:50 Blood Culture - Preliminary Blood 11/30/23 12:05 Blood Culture - Preliminary Blood
[2023-12-04 11:25] LABS: Anisocytosis Slight; HCT 30.5 % (34.0-46.0); HGB 9.5 gm/dL (11.4-16.0); Hypochromasia Marked; MCV 93.4 fL (80.0-100.0); Mean Platelet Volume 9.9; Platelet Count 155 k/uL (150-450); RBC 3.27 m/uL (3.80-5.40); RDW 19.3 % (11.5-15.5)
[2023-12-04 11:38] LABS: ALT 14 U/L (4-34); AST 22 U/L (14-36); African American GFR (CKD) 36 (>60 ml/min/1.73 sqM); Alkaline Phosphatase 85 U/L (38-126); Anion Gap 9 mmol/L; Blood Urea Nitrogen 32 mg/dL (7-17); Calcium 8.3 mg/dL (8.4-10.2); Carbon Dioxide 27 mmol/L (22-30); Chloride 104 mmol/L (98-107); Glucose 158 mg/dL (74-99); Non-African American GFR(CKD) 31 (>60 ml/min/1.73 sqM); Potassium 4.6 mmol/L (3.5-5.1); Sodium 140 mmol/L (137-145); Total Bilirubin 0.6 mg/dL (0.2-1.3); Total Protein 6.3 g/dL (6.3-8.2)
[2023-12-04 12:04] LABS: Glucose,Whole Blood 187 mg/dL (70-110)
--- NOTE | 2023-12-04 12:04 | P.PN ---
Subjective Progress Note Date: 12/02/23 HISTORY OF PRESENT ILLNESS This is an 88-year-old female patient of [facility], with past medical history of PE and DVT, morbid obesity, diabetes mellitus type 2, hypertension, hyperlipidemia, history of spinal stenosis status post surgery in [place], history of small bowel obstruction secondary to incarcerated umbilical hernia status post repair of the hernia with resolution of the bowel obstruction, history of atrial fibrillation, history of chronic diastolic heart failure with significant for hypertension and significant venous hypertension both lower extremities and significant edema, patient patient has been almost in a sedentary lifestyle noncompliant with her diet sitting in her wheelchair most of the day, has been on chronic diuretic use in the form of Lasix 80 mg orally twice every day, patient developed to have Covid 19 infection about a week ago, and patient was not treated with Paxil over the that time because the patient was feeling better, is that she was treated with supportive care including vitamin D vitamin C and zinc sulfate, patient also ended up having pneumonia that was treated with oral antibiotic at [facility], I received a call from the staff at [facility] stated that the patient oxygenation is dropping to the lower 80s and the patient is hypotensive not able to get a temperature so she was instructed to go to the emergency department at [facility], she was seen in the emergency department and she had a chest x-ray that showed pulmonary vascular congestion as well as left lower lobe infiltrate, per protocol [place] level came back elevated suggestive of possible pneumonia due to her ALLERGIES including penicillin and Zithromax and fluoroquinolones I've elected to place the patient on vancomycin as well as Azactam to cover for gram- positive and gram-negative along with anaerobes, patient also did have a CT angiography of the chest because of her atrial fibrillation with the rapid ventricular response that came back negative for PE but it did show evidence of possible left lower lobe infiltrate, patient also did have a venous Doppler of both lower extremity that documented a chronic thrombus. Patient was admitted to the hospital he would she was seen in consultation by cardiology for her heart failure she was also placed on Lasix 60 mg IV push every 12 hours, she was also seen in consultation by pulmonary medicine. 12/01: Patient is laying down in bed is feeling a bit better today, she continues to be so short of breath, she continues to have some coughing, she has been maintained on the IV Lasix 60 mg IV push every 12 hours however she appears to be a bit hypotensive we will decrease at 40 mg IV push every 12 hours, patient also continues to be on vancomycin and is active her pneumonia has been seen in consultation by cardiology as well as pulmonary medicine we will continue current treatment plan, continue oxygen support, try to wean her oxygen down, continue with input and output and daily weight. 12/02: Patient did have significant drop in her BP, was placed on Midodrine and she is feeling better, legs are swollen and she continues to have orthopnea and dyspnea at rest, lest coughing and less phlegm production, her daughter is still at bedside and she is postponing her trip till Mom is better, we will continue with Vanco and Azactam and hopefully will discontinue Vanco in 24 hours and continue with Azactam REVIEW OF SYSTEMS Constitutional: Reports no fever or chills, no night sweats. positive for weight change. Reports weakness, Reports fatigue, no lethargy, no daytime sleepiness. HEENT: No headache. No blurred vision or double vision, no loss of vision. No dizziness. No nasal drainage or congestion. No epistaxis. No sore throat, hard of hearing Lungs: positive for shortness of breath, positive for dry cough, no sputum production. positive for wheezing. Cardiovascular: No chest pain, positive for lower extremity edema, positive for palpitations, no paroxysmal nocturnal dyspnea. No orthopnea. No l ightheadedness or dizziness. No syncopal episodes. Abdominal: No abdominal pain. positive for nausea, no vomiting. No diarrhea. No constipation. No bloody or tarry stools. Reports loss of appetite. Genitourinary: No dysuria, increased frequency, urgency. No urinary retention, positive for urinary incontinence Musculoskeletal: No myalgias. Reports muscle weakness, Reports gait dysfunction, Reports falls. positive for back pain. No neck pain. Integumentary: Reports wound to the left big toe with significant tissue edema, reports lower extremity redness, there is denuded ulcer to the left big toe Neurologic: No aphasia. No facial droop. No change in mentation. No head injury. No headache. No paralysis. No paresthesia. Psychiatric: positive for depression. No anxiety. No mood swings. Endocrine: positive for abnormal blood sugars. positive for weight change. PHYSICAL EXAMINATION Gen: This is an 88-year-old female, sitting up in bed in no apparent distress. HEENT: Head is atraumatic, normocephalic. Pupils equal, round. Sclerae is ani cteric, mucous membranes of the mouth are somewhat dry, there is minimal thrush. NECK: Supple. No JVD. No lymphadenopathy. No thyromegaly. LUNGS: Decreased breath sounds at the bases, few rhonchi, minimal expiratory wheezes, no chest wall tenderness, no intercostal retractions. HEART: first heart sound is depressed, second heart sound is normal, irregularly irregular, there is systolic ejection murmur 2/6 located at the left sternal border. ABDOMEN: morbidly obese abdomen, soft nontender nondistended, positive bowel sounds. EXTREMITIES: 2+ bilateral pitting edema to the lower extremities, chronic stasis dermatitis, there is bilateral foot drop. NEUROLOGICAL: Patient is awake, alert and oriented x3. Cranial nerves 2 through 12 are grossly intact significant weakness to both lower extremity his right more than left, bilateral foot drop ASSESSMENT AND PLAN 1. Acute Systoli heart failure. we will continue the patient Lasix to 40 mg IV push every 12 hours, continue patient on metoprolol 25 mg orally twice daily , echocardiogram will be done along with cardiology consultation. Continue patient on Farxiga 10 mg po daily, Echocardiogram showed modertae decrease in LVF EF 45 % with severe Aortic stenosis, she may require TAVR. 2. Left lower lobe pneumonia. continue vancomycin pharmacy to dose its peak and trough, also Azactam 2 g IV piggyback every 8 hours, cultures so far negative 3. Atrial fibrillation . Continue metoprolol 25 mg orally twice every day, continue patient on Eliquis 5 mg orally twice every day. 4. Anemia of chronic diseases. Stable at this time. 5. History of multiple DVTs and PE on watermelon inspector anticoagulation with chronic DVT 's i boh legs Continue eliquis 5 mg twice daily. has IVC filter in place 6. Valvular heart disease with severe tricuspid regurgitation, and severe Aortic stenosis with decrease LVF , needs TAVR 7. Severe pulmonary hypertension with RVSP 60 mmHg. continue patient on Me toprolol 25 mg orally bid continue patient on Lasix 40 mg IVP twice every day. 8. Hypertension and hypertensive cardiovascular disease. Continue patient on Metoprolol 25 mg po bid, we will continue to monitor BP very closely 9. Hyperlipidemia. Continue atorvastatin 10 mg at bedtime. 10. Diabetes mellitus type 2. Continue patient on Farxiga 10 mg po daily, Trulicity 1.5 mg SC q week , along with SSI. 11. Spinal stenosis status post laminectomy, stable. 12. Recurrent depression. Continue patient on Effexor 75 mg orally once every day. 13. Gastroesophageal reflux disease and GI prophylaxis. Protonix 40 mg po daily. 14. DVT prophylaxis. Eliquis 5 mg orally twice every day. 15. Hypotensive episode likely related to aggressive diuresis as well as orthostatic hypotension patient will continue on midodrine 10 mg orally 3 times every day. 16. Overall prognosis is guarded. Objective - Vital Signs Vital signs: Vital Signs Temp 98.6 F 12/04/23 08:21 Pulse 78 12/04/23 11:52 Resp 22 12/04/23 08:21 BP 93/59 12/04/23 08:21 Pulse Ox 96 12/04/23 08:51 FiO2 Intake & Output 12/03/23 12/04/23 12/04/23 18:59 06:59 18:59 Intake Total 500 128 260 Output Total 525 200 300 Balance -25 -72 -40 Weight 100 kg Intake: IV 20 10 20 Invasive Line 3 10 10 10 Invasive Line 4 10 10 Oral 480 118 240 Output: Urine 525 200 300 Other: Voiding Method External Catheter External Catheter External Catheter # Voids 1 1 - Labs CBC & Chem 7: 12/04/23 10:23 12/04/23 10:23 Labs: Abnormal Lab Results - Last 24 Hours (Table) 12/03/23 12/03/23 12/03/23 Range/Units 11:48 11:48 15:40 RBC 3.22 L (3.80-5.40) m/uL Hgb 9.1 L (11.4-16.0) gm/dL Hct 29.9 L (34.0-46.0) % MCHC 30.4 L (31.0-37.0) g/dL RDW 19.2 H (11.5-15.5) % BUN 30 H (7-17) mg/dL Creatinine 1.46 H (0.52-1.04) mg/dL Glucose 144 H (74-99) mg/dL POC Glucose (mg/dL) (70-110) mg/dL Calcium 8.1 L (8.4-10.2) mg/dL Albumin 2.9 L (3.5-5.0) g/dL Urine Glucose (UA) 4+ H (Negative) Ur Leukocyte Esterase Moderate H (Negative) Urine Bacteria Rare H (None) /hpf Hyaline Casts 11 H (0-2) /lpf Urine Mucus Rare H (None) /hpf 12/03/23 12/03/23 12/04/23 Range/Units 16:05 20:54 06:29 RBC (3.80-5.40) m/uL Hgb (11.4-16.0) gm/dL Hct (34.0-46.0) % MCHC (31.0-37.0) g/dL RDW (11.5-15.5) % BUN (7-17) mg/dL Creatinine (0.52-1.04) mg/dL Glucose (74-99) mg/dL POC Glucose (mg/dL) 182 H 129 H 147 H (70-110) mg/dL Calcium (8.4-10.2) mg/dL Albumin (3.5-5.0) g/dL Urine Glucose (UA) (Negative) Ur Leukocyte Esterase (Negative) Urine Bacteria (None) /hpf Hyaline Casts (0-2) /lpf Urine Mucus (None) /hpf 12/04/23 12/04/23 Range/Units 10:23 10:23 RBC 3.27 L (3.80-5.40) m/uL Hgb 9.5 L (11.4-16.0) gm/dL Hct 30.5 L (34.0-46.0) % MCHC (31.0-37.0) g/dL RDW 19.3 H (11.5-15.5) % BUN 32 H (7-17) mg/dL Creatinine 1.52 H (0.52-1.04) mg/dL Glucose 158 H (74-99) mg/dL POC Glucose (mg/dL) (70-110) mg/dL Calcium 8.3 L (8.4-10.2) mg/dL Albumin 3.0 L (3.5-5.0) g/dL Urine Glucose (UA) (Negative) Ur Leukocyte Esterase (Negative) Urine Bacteria (None) /hpf Hyaline Casts (0-2) /lpf Urine Mucus (None) /hpf Microbiology - Last 24 Hours (Table) 11/30/23 11:50 Blood Culture - Preliminary Blood 11/30/23 12:05 Blood Culture - Preliminary Blood
--- NOTE | 2023-12-04 13:09 | P.PN ---
Subjective Progress Note Date: 12/04/23 HISTORY OF PRESENT ILLNESS This is an 88-year-old female patient of [facility], with past medical history of PE and DVT, morbid obesity, diabetes mellitus type 2, hypertension, hyperlipidemia, history of spinal stenosis status post surgery in [place], history of small bowel obstruction secondary to incarcerated umbilical hernia status post repair of the hernia with resolution of the bowel obstruction, history of atrial fibrillation, history of chronic diastolic heart failure with significant for hypertension and significant venous hypertension both lower extremities and significant edema, patient patient has been almost in a sedentary lifestyle noncompliant with her diet sitting in her wheelchair most of the day, has been on chronic diuretic use in the form of Lasix 80 mg orally twice every day, patient developed to have Covid 19 infection about a week ago, and patient was not treated with Paxil over the that time because the patient was feeling better, is that she was treated with supportive care including vitamin D vitamin C and zinc sulfate, patient also ended up having pneumonia that was treated with oral antibiotic at [facility], I received a call from the staff at [facility] stated that the patient oxygenation is dropping to the lower 80s and the patient is hypotensive not able to get a temperature so she was instructed to go to the emergency department at [facility], she was seen in the emergency department and she had a chest x-ray that showed pulmonary vascular congestion as well as left lower lobe infiltrate, per protocol [place] level came back elevated suggestive of possible pneumonia due to her ALLERGIES including penicillin and Zithromax and fluoroquinolones I've elected to place the patient on vancomycin as well as Azactam to cover for gram- positive and gram-negative along with anaerobes, patient also did have a CT angiography of the chest because of her atrial fibrillation with the rapid ventricular response that came back negative for PE but it did show evidence of possible left lower lobe infiltrate, patient also did have a venous Doppler of both lower extremity that documented a chronic thrombus. Patient was admitted to the hospital he would she was seen in consultation by cardiology for her heart failure she was also placed on Lasix 60 mg IV push every 12 hours, she was also seen in consultation by pulmonary medicine. 12/01: Patient is laying down in bed is feeling a bit better today, she continues to be so short of breath, she continues to have some coughing, she has been maintained on the IV Lasix 60 mg IV push every 12 hours however she appears to be a bit hypotensive we will decrease at 40 mg IV push every 12 hours, patient also continues to be on vancomycin and is active her pneumonia has been seen in consultation by cardiology as well as pulmonary medicine we will continue current treatment plan, continue oxygen support, try to wean her oxygen down, continue with input and output and daily weight. 12/02: Patient did have significant drop in her BP, was placed on Midodrine and she is feeling better, legs are swollen and she continues to have orthopnea and dyspnea at rest, lest coughing and less phlegm production, her daughter is still at bedside and she is postponing her trip till Mom is better, we will continue with Vanco and Azactam and hopefully will discontinue Vanco in 24 hours and continue with Azactam 12/03: Patient is seen today in a follow-up. She is sleeping in bed. She apparently was up quite a bit last night. Patient developed a redness from IV antibiotics most likely "red man" syndrome from the IV vancomycin. Patient is currently on both IV vancomycin and Azactam. We will discontinue the vancomycin at this time. Consult added for Dr. Aguila to manage antibiotics as patient has a number of antibiotic ALLERGIES. She has been on IV Lasix at 40 mg twice daily mild decrease to once daily. Patient remains afebrile, heart rate in the 50s to 80s, blood pressure 99/56 up to 137/71. Pulse ox is 100% on 3 L. Repeat blood work reveals WBC 6.6, hemoglobin 9.1, platelet count 164. Electrolytes are normal. BUN 30 creatinine 1.46. 12/04: Patient appears better but continues to have croupy dry cough we will add Pulmicort 1 mg Nebulization bid, we will continue with current treatment plan we will continue with Azactam , vancomycin was discontinued due to either red man syndrome or allergic reaction, REVIEW OF SYSTEMS Constitutional: Reports no fever or chills, no night sweats. positive for weight change. Reports weakness, Reports fatigue, no lethargy, no daytime sleepiness. HEENT: No headache. No blurred vision or double vision, no loss of vision. No dizziness. No nasal drainage or congestion. No epistaxis. No sore throat, hard of hearing Lungs: positive for shortness of breath, positive for dry cough, no sputum production. positive for wheezing. Cardiovascular: No chest pain, positive for lower extremity edema, positive for palpitations, no paroxysmal nocturnal dyspnea. No orthopnea. No lightheadedness or dizziness. No syncopal episodes. Abdominal: No abdominal pain. positive for nausea, no vomiting. No diarrhea. No constipation. No bloody or tarry stools. Reports loss of appetite. Genitourinary: No dysuria, increased frequency, urgency. No urinary retention, positive for urinary incontinence Musculoskeletal: No myalgias. Reports muscle weakness, Reports gait dysfunction, Reports falls. positive for back pain. No neck pain. Integumentary: Reports scattered maculopapular rash with excoriation on her bilateral arms and chest wall Neurologic: No aphasia. No facial droop. No change in mentation. No head injury. No headache. No paralysis. No paresthesia. Psychiatric: positive for depression. No anxiety. No mood swings. Endocrine: positive for abnormal blood sugars. positive for weight change. PHYSICAL EXAMINATION Gen: This is an 88-year-old female, sitting up in bed in no apparent distress. HEENT: Head is atraumatic, normocephalic. Pupils equal, round. Sclerae is anicteric, mucous membranes of the mouth are somewhat dry, there is minimal thrush. NECK: Supple. No JVD. No lymphadenopathy. No thyromegaly. LUNGS: Decreased breath sounds at the bases, few rhonchi, minimal expiratory wheezes, no chest wall tenderness, no intercostal retractions. HEART: first heart sound is depressed, second heart sound is normal, irregularly irregular, there is systolic ejection murmur 2/6 located at the left sternal border. ABDOMEN: morbidly obese abdomen, soft nontender nondistended, positive bowel sounds. EXTREMITIES: 2+ bilateral pitting edema to the lower extremities, chronic stasis dermatitis, there is bilateral foot drop. NEUROLOGICAL: Patient is awake, alert and oriented x3. Cranial nerves 2 through 12 are grossly intact significant weakness to both lower extremity his right more than left, bilateral foot drop Skin. 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 Acute Systolic heart failure. we will continue the patient Lasix to 40 mg IV push every 12 hours, continue patient on metoprolol 25 mg orally twice daily , echocardiogram will be done along with cardiology consultation. Continue patient on Farxiga 10 mg po daily, Echocardiogram showed modertae decrease in LVF EF 45 % with severe Aortic stenosis, she may require TAVR. 2. Left lower lobe pneumonia. continue discontinued Vancomycin due to Red man syndrome Vs allergic reaction continue Azactam 2 g IV piggyback every 8 hours, cultures so far negative 3. Atrial fibrillation . Continue metoprolol 25 mg orally twice every day, continue patient on Eliquis 5 mg orally twice every day. 4. Anemia of chronic diseases. Stable at this time. 5. 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 has IVC filter in place 6. Valvular heart disease with severe tricuspid regurgitation, and severe Aortic stenosis with decrease LVF , needs TAVR 7. Severe pulmonary hypertension with RVSP 60 mmHg. continue patient on Metoprolol 25 mg orally bid continue patient on Lasix 40 mg IVP twice every day. 8. Hypertension and hypertensive cardiovascular disease. Continue patient on Metoprolol 25 mg po bid, we will continue to monitor BP very closely 9. Hyperlipidemia. Continue atorvastatin 10 mg at bedtime. 10. Diabetes mellitus type 2. Continue patient on Farxiga 10 mg po daily, Trulicity 1.5 mg SC q week , along with SSI. 11. Spinal stenosis status post laminectomy, stable. 12. Recurrent depression. Continue patient on Effexor 75 mg orally once every day. 13. Gastroesophageal reflux disease and GI prophylaxis. Protonix 40 mg po daily. 14. DVT prophylaxis. Eliquis 5 mg orally twice every day. 15. Hypotensive episode likely related to aggressive diuresis as well as orthostatic hypotension patient will continue on midodrine 10 mg orally 3 times every day. 16. Red man syndrome or Allergic reaction to vancomycin. we will contiue with benadryl and Clobetasol cream and off vanco 17. 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 19. NO Code Objective - Vital Signs Vital signs: Vital Signs Temp 98.6 F 12/04/23 08:21 Pulse 78 12/04/23 11:52 Resp 22 12/04/23 08:21 BP 93/59 12/04/23 08:21 Pulse Ox 96 12/04/23 08:51 FiO2 Intake & Output 12/03/23 12/04/23 12/04/23 18:59 06:59 18:59 Intake Total 500 128 260 Output Total 525 200 300 Balance -25 -72 -40 Weight 100 kg Intake: IV 20 10 20 Invasive Line 3 10 10 10 Invasive Line 4 10 10 Oral 480 118 240 Output: Urine 525 200 300 Other: Voiding Method External Catheter External Catheter External Catheter # Voids 1 1 - Labs CBC & Chem 7: 12/04/23 10:23 12/04/23 10:23 Labs: Abnormal Lab Results - Last 24 Hours (Table) 12/03/23 12/03/23 12/03/23 Range/Units 11:48 11:48 15:40 RBC 3.22 L (3.80-5.40) m/uL Hgb 9.1 L (11.4-16.0) gm/dL Hct 29.9 L (34.0-46.0) % MCHC 30.4 L (31.0-37.0) g/dL RDW 19.2 H (11.5-15.5) % BUN 30 H (7-17) mg/dL Creatinine 1.46 H (0.52-1.04) mg/dL Glucose 144 H (74-99) mg/dL POC Glucose (mg/dL) (70-110) mg/dL Calcium 8.1 L (8.4-10.2) mg/dL Albumin 2.9 L (3.5-5.0) g/dL Urine Glucose (UA) 4+ H (Negative) Ur Leukocyte Esterase Moderate H (Negative) Urine Bacteria Rare H (None) /hpf Hyaline Casts 11 H (0-2) /lpf Urine Mucus Rare H (None) /hpf 12/03/23 12/03/23 12/04/23 Range/Units 16:05 20:54 06:29 RBC (3.80-5.40) m/uL Hgb (11.4-16.0) gm/dL Hct (34.0-46.0) % MCHC (31.0-37.0) g/dL RDW (11.5-15.5) % BUN (7-17) mg/dL Creatinine (0.52-1.04) mg/dL Glucose (74-99) mg/dL POC Glucose (mg/dL) 182 H 129 H 147 H (70-110) mg/dL Calcium (8.4-10.2) mg/dL Albumin (3.5-5.0) g/dL Urine Glucose (UA) (Negative) Ur Leukocyte Esterase (Negative) Urine Bacteria (None) /hpf Hyaline Casts (0-2) /lpf Urine Mucus (None) /hpf 12/04/23 12/04/23 Range/Units 10:23 10:23 RBC 3.27 L (3.80-5.40) m/uL Hgb 9.5 L (11.4-16.0) gm/dL Hct 30.5 L (34.0-46.0) % MCHC (31.0-37.0) g/dL RDW 19.3 H (11.5-15.5) % BUN 32 H (7-17) mg/dL Creatinine 1.52 H (0.52-1.04) mg/dL Glucose 158 H (74-99) mg/dL POC Glucose (mg/dL) (70-110) mg/dL Calcium 8.3 L (8.4-10.2) mg/dL Albumin 3.0 L (3.5-5.0) g/dL Urine Glucose (UA) (Negative) Ur Leukocyte Esterase (Negative) Urine Bacteria (None) /hpf Hyaline Casts (0-2) /lpf Urine Mucus (None) /hpf Microbiology - Last 24 Hours (Table) 11/30/23 11:50 Blood Culture - Preliminary Blood 11/30/23 12:05 Blood Culture - Preliminary Blood
--- NOTE | 2023-12-04 15:11 | P.PN ---
Subjective Progress Note Date: 12/04/23 I am seeing this patient in consultation today 12/01/2023 after she was brought in from [facility]. Apparently she tested positive for COVID-19 last week. Since then, she's had difficulty in breathing and weakness. Patient is a 88-year-old white female with past medical history significant for congestive heart failure, chronic lower extremity swelling and prior cellulitis, atrial fibrillation, PE/DVT, diabetes mellitus, hyperlipidema, hypertension, among other things. Patient resides at [facility]. Apparently, she tested positive for COVID-19 last week. She did receive her original COVID-19 vaccination, but without any booster injections. On arrival to the emergency room, she was noted to be short of breath. Requiring more supplemental oxygen than baseline. She was also mildly febrile with a T-max of 100.3F. Interestingly, the patient tested negative for COVID-19 at our facility. Chest x-ray shows cardiomegaly, pulmonary vascular congestion, and probable bilateral small pleural effusions. There is a possible developing left lower lobe infiltrate or atelectasis. D-dimer was elevated. Follow-up chest CTA does not show any obvious large central pulmonary embolism, breathing artifact limits exam. There is cardiomegaly with prominent refluxing contrast and hepatic veins suggestive of failure. There is pulmonary arterial hypertension and small left pleural effusion. There is an additional patchy opacities at the left base which could represent atelectasis or developing pulmonary infiltrate. There may be underlying tracheobronchial malacia. CBC on arrival: WBC count 13, hemoglobin 10.5, hematocrit 33.6, platelets 221. BMP on arrival: Sodium 140, potassium 5.1, chloride 102, serum bicarb 27, BUN 27, creatinine 1.34, glucose 141. Lactic acid level peaked at 3.3. Patient is empirically covered on aztreonam and vancomycin. She also has lower extremity swelling. Left greater than right. Left leg is erythemic. She has history of cellulitis of this extremity. NT proBNP was elevated at 5140. Currently the patient is being diuresed with Lasix 60 mg IV every 12 hours. Patient is currently sitting up in bed, on 5 L/m nasal cannula, in no acute distress. She is hard of hearing. She is not in any respiratory distress, but has a persistent dry nonproductive cough. Patient states that his cough was productive earlier in the week, produ cing creamy sputum. Admits subjective fevers last week when she was diagnosed with COVID-19. Denies any chest pain, hemoptysis. She has been very weak. Patient is mostly bedbound/wheelchair bound while at [facility]. Vital signs are stable. Progress note dated 12/02/2023. This is a 88-year-old female who was seen yesterday in consultation. Please see the note above. The patient resides at one of the local nursing homes. Currently, she is on 3 L of oxygen. Her pro-calcitonin level was 0.32. She continues on vancomycin, and aztreonam. She's treated for possible urinary tract infection, and possible pneumonia. Last night, the charge nurse from the ICU call me twice about this patient, because of low blood pressures. She responded very nicely to fluid resuscitation. Currently, her blood pressure is stable. Laboratory data includes a white count of 8.7, hemoglobin 9.8, hematoc rit 31.1, and a platelet count of 195,000. Sodium 139, potassium 4.8, chlorides 104, CO2 24, BUN 35, creatinine 1.53. The patient is seen today 12/03/2023 in follow-up on the selective care unit. S he is currently resting comfortably in bed. Awake and alert in no acute distress. She is maintaining good O2 saturations in the 90s on 3 L/m per nasal cannula. Bilateral lower extremities were positive for DVT. CT angiogram ruled out pulmonary embolism. Her pro-calcitonin was 0.32. She is continued on vancomycin and aztreonam. She is anticoagulated with Eliquis. White count 6.6. Hemoglobin 9.1. Sodium 137. Potassium 4.6. Bicarb 26. BUN 30. Creatinine 1.46. Glucose 144. She is continued on Lasix 40 mg IV every 12 hours. Remains on bronchodilators. The patient is seen today 12/04/2023 in follow-up on the selective care unit. She is currently resting comfortably in bed. Awake and alert in no acute distress. He is maintaining O2 saturations in the 90s on 3 L/m per nasal ca nnula. No IV fluids. Cultures are revealing no growth. White count 7.0. Hemoglobin 9.5. Platelets 155. Sodium 140. Potassium 4.6. Bicarb 27. BUN 32. Creatinine 1.52. Glucose 158. Continued on aztreonam. Remains on bronchodilators. Anticoagulated with Eliquis. Continue IV diuretics. C urrently in a -100 ML balance. Objective - Vital Signs Vital signs: Vital Signs Temp 98.6 F 12/04/23 08:21 Pulse 76 12/04/23 12:57 Resp 22 12/04/23 12:57 BP 100/57 12/04/23 12:57 Pulse Ox 96 12/04/23 12:57 FiO2 Intake & Output 12/03/23 12/04/23 12/04/23 18:59 06:59 18:59 Intake Total 500 128 500 Output Total 525 200 300 Balance - - 200 Weight 100 kg Intake: IV 20 10 20 Invasive Line 3 10 10 10 Invasive Line 4 10 10 Oral 480 118 480 Output: Urine 525 200 300 Other: Voiding Method External Catheter External Catheter External Catheter # Voids 1 1 - Exam GENERAL EXAM: Alert, 88-year-old female, resting in bed, on 3 L nasal cannula, in no apparent distress. HEAD: Normocephalic and atraumatic EYES: Normal reaction of pupils, equal size. NOSE: Clear with pink turbinates. THROAT: No erythema or exudates. NECK: No masses, no JVD. CHEST: No chest wall deformity. LUNGS: Equal air entry with end expiratory wheeze. CVS: S1 and S2 normal with no audible murmur, regular rhythm. No extra heart so unds ABDOMEN: Obese abdomen, no hepatosplenomegaly, active bowel sounds, no guarding or rigidity. SPINE: No scoliosis or deformity SKIN: Left lower extremity erythema and edema CENTRAL NERVOUS SYSTEM: No focal deficits, tone is normal in all 4 extremities. EXTREMITIES: Bilateral lower extremity edema, left greater than right. No clubbing, or cyanosis. Peripheral pulses are intact. - Labs CBC & Chem 7: 12/04/23 10:23 12/04/23 10:23 Labs: Abnormal Lab Results - Last 24 Hours (Table) 12/03/23 12/03/23 12/03/23 Range/Units 15:40 16:05 20:54 RBC (3.80-5.40) m/uL Hgb (11.4-16.0) gm/dL Hct (34.0-46.0) % RDW (11.5-15.5) % BUN (7-17) mg/dL Creatinine (0.52-1.04) mg/dL Glucose (74-99) mg/dL POC Glucose (mg/dL) 182 H 129 H (70-110) mg/dL Calcium (8.4-10.2) mg/dL Albumin (3.5-5.0) g/dL Urine Glucose (UA) 4+ H (Negative) Ur Leukocyte Esterase Moderate H (Negative) Urine Bacteria Rare H (None) /hpf Hyaline Casts 11 H (0-2) /lpf Urine Mucus Rare H (None) /hpf 12/04/23 12/04/23 12/04/23 Range/Units 06:29 10:23 10:23 RBC 3.27 L (3.80-5.40) m/uL Hgb 9.5 L (11.4-16.0) gm/dL Hct 30.5 L (34.0-46.0) % RDW 19.3 H (11.5-15.5) % BUN 32 H (7-17) mg/dL Creatinine 1.52 H (0.52-1.04) mg/dL Glucose 158 H (74-99) mg/dL POC Glucose (mg/dL) 147 H (70-110) mg/dL Calcium 8.3 L (8.4-10.2) mg/dL Albumin 3.0 L (3.5-5.0) g/dL Urine Glucose (UA) (Negative) Ur Leukocyte Esterase (Negative) Urine Bacteria (None) /hpf Hyaline Casts (0-2) /lpf Urine Mucus (None) /hpf 12/04/23 Range/Units 12:01 RBC (3.80-5.40) m/uL Hgb (11.4-16.0) gm/dL Hct (34.0-46.0) % RDW (11.5-15.5) % BUN (7-17) mg/dL Creatinine (0.52-1.04) mg/dL Glucose (74-99) mg/dL POC Glucose (mg/dL) 187 H (70-110) mg/dL Calcium (8.4-10.2) mg/dL Albumin (3.5-5.0) g/dL Urine Glucose (UA) (Negative) Ur Leukocyte Esterase (Negative) Urine Bacteria (None) /hpf Hyaline Casts (0-2) /lpf Urine Mucus (None) /hpf Microbiology - Last 24 Hours (Table) 11/30/23 11:50 Blood Culture - Preliminary Blood 11/30/23 12:05 Blood Culture - Preliminary Blood Assessment and Plan Assessment: Acute on chronic hypoxemic respiratory failure, likely multifactorial, secondary to acute on chronic diastolic CHF exacerbation and possible left lower lobe healthcare associated pneumonia. CTA does not show any obvious large central pulmonary embolism, breathing artifact limits exam. There is cardiomegaly with prominent refluxing contrast and hepatic veins suggestive of failure. There is pulmonary arterial hypertension and small left pleural effusion. There is an additional patchy opacities at the left base which could represent atelectasis or developing pulmonary infiltrate. There may be underlying tracheobronchial malacia. Remains on antibiotics and diuretics Recent history of acute COVID-19 infection, PCR negative on admission Leukocytosis Acute kidney injury Chronic lower extremity edema and cellulitis History of osteomyelitis, left great toe diabetes mellitus, type II History DVT/PE Paroxysmal atrial fibrillation, with controlled ventricular response, chronically anticoagulated on Eliquis History of hyperlipidemia History of hypertension Morbid obesity, with a BMI of 36.7 kg/m Plan: The patient was seen and evaluated Labs and medications reviewed Continue the current treatment plan Titrate down the FiO2 as tolerated Plan is to return to [facility] upon discharge I have personally seen and examined the patient, performed the documentation and the assessment and plan as written. Number of minutes spent on the visit: 10.
[2023-12-04] MEDS: SODIUM CHLORIDE 0.9% 1,000 ML IV SCH (15:12)
--- NOTE | 2023-12-04 16:44 | P.PN ---
Subjective Progress Note Date: 12/04/23 Principal diagnosis: Reason for follow-up is drug rash and a question of UTI Patient is a 88-year-old female with a past medical history significant for diabetes mellitus hypertension hyperlipidemia osteoarthritis reflux presenting to the hospital from the local assisted for evaluation of difficulty breathing apparently patient tested positive for COVID-19 few days ago before the patient was brought into the hospital patient be complaining of feeling weak, patient just completed melena elevated and a positive UA started on vancomycin and Azactam developing a rash prompting this infectious disease consultation. On today's evaluation that is 12/04/2023, the patient denies having any fever or any chills patient is breathing comfortably on 3 to nasal cannula oxygen denies any chest pain no worsening cough or sputum production no abdominal pain no diarrhea no urinary symptoms still having rash to the upper torso no vesicle. Patient with a white count of 7.0, creatinine is 1.5 2 repeat urine did not show any pyuria Objective - Vital Signs Vital signs: Vital Signs Temp 98.6 F 12/04/23 08:21 Pulse 76 12/04/23 12:57 Resp 22 12/04/23 12:57 BP 100/57 12/04/23 12:57 Pulse Ox 96 12/04/23 12:57 FiO2 Intake & Output 12/03/23 12/04/23 12/04/23 18:59 06:59 18:59 Intake Total 500 128 260 Output Total 525 200 300 Balance -25 -72 -40 Weight 100 kg Intake: IV 20 10 20 Invasive Line 3 10 10 10 Invasive Line 4 10 10 Oral 480 118 240 Output: Urine 525 200 300 Other: Voiding Method External Catheter External Catheter External Catheter # Voids 1 1 - Exam GENERAL DESCRIPTION: An elderly female lying in bed in no distress RESPIRATORY SYSTEM: Unlabored breathing , decreased breath sounds at bases HEART: S1 S2 regular rate and rhythm , ABDOMEN: Soft , no tenderness EXTREMITIES: Diffuse swelling to the leg Skin : Did have maculopapular rash to the upper torso - Labs CBC & Chem 7: 12/04/23 10:23 12/04/23 10:23 Labs: Abnormal Lab Results - Last 24 Hours (Table) 12/03/23 12/03/23 12/03/23 Range/Units 15:40 16:05 20:54 RBC (3.80-5.40) m/uL Hgb (11.4-16.0) gm/dL Hct (34.0-46.0) % RDW (11.5-15.5) % BUN (7-17) mg/dL Creatinine (0.52-1.04) mg/dL Glucose (74-99) mg/dL POC Glucose (mg/dL) 182 H 129 H (70-110) mg/dL Calcium (8.4-10.2) mg/dL Albumin (3.5-5.0) g/dL Urine Glucose (UA) 4+ H (Negative) Ur Leukocyte Esterase Moderate H (Negative) Urine Bacteria Rare H (None) /hpf Hyaline Casts 11 H (0-2) /lpf Urine Mucus Rare H (None) /hpf 12/04/23 12/04/23 12/04/23 Range/Units 06:29 10:23 10:23 RBC 3.27 L (3.80-5.40) m/uL Hgb 9.5 L (11.4-16.0) gm/dL Hct 30.5 L (34.0-46.0) % RDW 19.3 H (11.5-15.5) % BUN 32 H (7-17) mg/dL Creatinine 1.52 H (0.52-1.04) mg/dL Glucose 158 H (74-99) mg/dL POC Glucose (mg/dL) 147 H (70-110) mg/dL Calcium 8.3 L (8.4-10.2) mg/dL Albumin 3.0 L (3.5-5.0) g/dL Urine Glucose (UA) (Negative) Ur Leukocyte Esterase (Negative) Urine Bacteria (None) /hpf Hyaline Casts (0-2) /lpf Urine Mucus (None) /hpf 12/04/23 Range/Units 12:01 RBC (3.80-5.40) m/uL Hgb (11.4-16.0) gm/dL Hct (34.0-46.0) % RDW (11.5-15.5) % BUN (7-17) mg/dL Creatinine (0.52-1.04) mg/dL Glucose (74-99) mg/dL POC Glucose (mg/dL) 187 H (70-110) mg/dL Calcium (8.4-10.2) mg/dL Albumin (3.5-5.0) g/dL Urine Glucose (UA) (Negative) Ur Leukocyte Esterase (Negative) Urine Bacteria (None) /hpf Hyaline Casts (0-2) /lpf Urine Mucus (None) /hpf Microbiology - Last 24 Hours (Table) 11/30/23 11:50 Blood Culture - Preliminary Blood 11/30/23 12:05 Blood Culture - Preliminary Blood Assessment and Plan (1) Drug rash Current Visit: Yes Status: Acute Code(s): L27.0 - GEN SKIN ERUPTION DUE TO DRUGS AND MEDS TAKEN INTERNALLY SNOMED Code(s): 20896881 Plan: 1-patient developing a rash to the upper chest area along with itching likely "red man" syndrome related to the vancomycin which has been discontinued 2-patient with initially presented to hospital with weakness shortness of breath did have a low-grade fever elevated white count concern for possible UTI the patient did have positive UA CT angiogram mention question of pneumonia however the procalcitonin is significantly elevated 3-patient repeat UA did not show any pyuria patient did not have any urinary symptoms white count is normal rash has persisted despite discontinuation of vancomycin we will go ahead and discontinue Azactam and monitor the patient closely off antibiotic therapy Dictation was produced using [employer] dictation software. please excuse any grammatical, word or spelling errors. Time with Patient: Less than 30
[2023-12-04 17:11] LABS: Glucose,Whole Blood 156 mg/dL (70-110)
[2023-12-04 20:13] LABS: Glucose,Whole Blood 147 mg/dL (70-110)
[2023-12-04] MEDS: BUDESONIDE 1 MG/2 ML NEBU INHALATION SCH (20:58)
[2023-12-04] MEDS: ATORVASTATIN 10 MG TAB PO SCH (21:22)
[2023-12-04] MEDS: SENNOSIDES-DOCUSATE SODIUM 1 EACH TAB PO SCH (21:22)
[2023-12-05] MEDS: guaiFENesin SYRUP 100MG/5ML 200 MG/10 ML CUP PO SCH ×7 (00:48→23:35)
[2023-12-05 06:06] LABS: Glucose,Whole Blood 143 mg/dL (70-110)
[2023-12-05] MEDS: INSULIN ASPART (NovoLOG) 100 UNIT/ML VIAL SQ SCH ×4 (06:20→20:15)
[2023-12-05] MEDS: METOCLOPRAMIDE 5 MG TAB PO SCH ×3 (06:22→16:17)
[2023-12-05] MEDS: diphenhydrAMINE 25 MG CAP PO PRN (06:22)
[2023-12-05 08:35] LABS: Potassium 5.1 mmol/L (3.5-5.1)
[2023-12-05 08:36] LABS: ALT 14 U/L (4-34); AST 22 U/L (14-36); African American GFR (CKD) 41 (>60 ml/min/1.73 sqM); Alkaline Phosphatase 89 U/L (38-126); Anion Gap 9 mmol/L; Blood Urea Nitrogen 32 mg/dL (7-17); Calcium 8.5 mg/dL (8.4-10.2); Carbon Dioxide 21 mmol/L (22-30); Chloride 111 mmol/L (98-107); Glucose 99 mg/dL (74-99); Magnesium 2.5 mg/dL (1.6-2.3); Non-African American GFR(CKD) 35 (>60 ml/min/1.73 sqM); Sodium 141 mmol/L (137-145); Total Bilirubin 0.7 mg/dL (0.2-1.3); Total Protein 6.4 g/dL (6.3-8.2)
[2023-12-05 08:40] LABS: Anisocytosis Slight; HCT 31.8 % (34.0-46.0); HGB 9.9 gm/dL (11.4-16.0); Hypochromasia Marked; MCH 28.6 pg (25.0-35.0); MCHC 31.1 g/dL (31.0-37.0); MCV 92.1 fL (80.0-100.0); Mean Platelet Volume 9.3; Poikilocytosis Slight; RBC 3.45 m/uL (3.80-5.40); WBC 8.1 k/uL (3.8-10.6)
[2023-12-05] MEDS: IPRATROPIUM-ALBUTEROL 3 ML NEB INHALATION SCH ×4 (08:41→22:18)
[2023-12-05] MEDS: BUDESONIDE 1 MG/2 ML NEBU INHALATION SCH ×2 (08:42→22:18)
[2023-12-05] MEDS: FUROSEMIDE 10 MG/ML 4 ML VIAL IV SCH (08:43)
[2023-12-05] MEDS: TRIAMCINOLONE 0.1% CREAM 80 GM TUBE TOPICAL SCH ×2 (08:43→20:15)
[2023-12-05] MEDS: DAPAGLIFLOZIN PROPANEDIOL 5 MG TABLET PO SCH (08:43)
[2023-12-05] MEDS: ZINC SULFATE 220 MG CAP PO SCH (08:43)
[2023-12-05] MEDS: POTASSIUM CHLORIDE ER 20 MEQ TAB.ER PO SCH ×3 (08:43→16:18)
[2023-12-05] MEDS: METOPROLOL TARTRATE 25 MG TAB PO SCH ×2 (08:43→16:17)
[2023-12-05] MEDS: MAGNESIUM OXIDE 400 MG TAB PO SCH ×3 (08:43→16:18)
[2023-12-05] MEDS: APIXABAN 2.5 MG TABLET PO SCH ×2 (08:43→16:17)
[2023-12-05] MEDS: CHOLECALCIFEROL 25 MCG (1000 IU) TABLET PO SCH (08:43)
[2023-12-05] MEDS: ASCORBIC ACID 500 MG TAB PO SCH (08:43)
--- NOTE | 2023-12-05 11:26 | P.PN ---
Subjective Progress Note Date: 12/05/23 On 12/05/2023, I am seeing this patient for a follow-up regarding acute on top of chronic hypoxic respiratory failure attributed to a combination of acute on top of chronic diastolic heart failure and a possible left lower lobe healthcare associated pneumonia. The patient was hospitalized from 42-year-old male a large for difficulty in breathing. Apparently she tested positive for COVID-19 infection a week prior to her current admission. She is known to have chronic diastolic heart failure and chronic edema lower extremity along with chronic A- fib, previous DVT/PE, diabetes mellitus, hypertension and hyperlipidemia. The patient has been previously vaccinated for COVID-19. Upon arrival, the patient was febrile. Chest x-ray showed cardiomegaly and pulm vascular congestion. There was elevated D-dimer. The CT angiogram showed no evidence of any pulmonary embolism. There was cardiomegaly and hepatic vein dilatation consistent with heart failure and the patient also had dilatation of the pulmonary artery with a small left-sided pleural effusion. Labs were reviewed. proBNP was elevated at time of admission at 5140. The patient was started on IV Lasix. She was placed on oxygen initially at 5 L of oxygen by nasal cannula. She is quite weak and she is wheelchair-bound. The patient was subsequently weaned down to 3l echo of the heart was moderate valvular dysfunction of oxygen by nasal cannula. The patient was covered with antibiotics and the patient is currently on no antibiotics. The patient is currently on Lasix 40 mg IV every 24 hours. Creatinine currently is also abnormal as the patient has an acute on top of her chronic kidney injury in addition. Echo of the heart shows a mild to moderate LV dysfunction with an ejection fraction of 40 to 45% and the patient was found to have severe RV and RA dilatation with a right ventricular systolic pressure of 66 and severe aortic sclerosis with moderate aortic stenosis with a gradient of 48 and a mean gradient of 34. Noted during the course of her hospitalization, the patient was covered with a combination of vancomycin and Azactam and both antibiotics are currently on hold. She is a DNR/DNI CODE STATUS. The patient is quite debilitated. She is currently being worked on with physical therapy to be moved up on a chair. She cannot walk independently obviously. She is a intermediate resident. BUN is 32 with a creatinine 1.3 and a sodium level is 141. The viscosity 0.4 with a hemoglobin of 9.9. The creati nine is slightly improved compared to yesterday. Objective - Vital Signs Vital signs: Vital Signs Temp 98.1 F 12/05/23 08:32 Pulse 88 12/05/23 08:56 Resp 20 12/05/23 08:32 BP 94/60 12/05/23 08:32 Pulse Ox 96 12/05/23 08:43 FiO2 Intake & Output 12/04/23 12/05/23 12/05/23 18:59 06:59 18:59 Intake Total 620 260 10 Output Total 300 550 Balance 320 -290 10 Weight 98 kg Intake: IV 20 20 10 Invasive Line 3 10 10 Invasive Line 4 10 10 10 Oral 600 240 Output: Urine 300 550 Other: Voiding Method External Catheter External Catheter External Catheter - Exam GENERAL EXAM: Alert, 88-year-old female, resting in bed, on 3 L nasal cannula, in no apparent distress. HEAD: Normocephalic and atraumatic EYES: Normal reaction of pupils, equal size. NOSE: Clear with pink turbinates. THROAT: No erythema or exudates. NECK: No masses, no JVD. CHEST: No chest wall deformity. LUNGS: Equal air entry with end expiratory wheeze. CVS: S1 and S2 normal with no audible murmur, regular rhythm. No extra heart sounds ABDOMEN: Obese abdomen, no hepatosplenomegaly, active bowel sounds, no guarding or rigidity. SPINE: No scoliosis or deformity SKIN: Left lower extremity erythema and edema CENTRAL NERVOUS SYSTEM: No focal deficits, tone is normal in all 4 extremities. EXTREMITIES: Bilateral lower extremity edema, left greater than right. No clubbing, or cyanosis. Peripheral pulses are intact. - Labs CBC & Chem 7: 12/05/23 06:45 12/05/23 06:45 Labs: Abnormal Lab Results - Last 24 Hours (Table) 12/04/23 12/04/23 12/04/23 Range/Units 10:23 10:23 12:01 RBC 3.27 L (3.80-5.40) m/uL Hgb 9.5 L (11.4-16.0) gm/dL Hct 30.5 L (34.0-46.0) % RDW 19.3 H (11.5-15.5) % Chloride (98-107) mmol/L Carbon Dioxide (22-30) mmol/L BUN 32 H (7-17) mg/dL Creatinine 1.52 H (0.52-1.04) mg/dL Glucose 158 H (74-99) mg/dL POC Glucose (mg/dL) 187 H (70-110) mg/dL Calcium 8.3 L (8.4-10.2) mg/dL Magnesium (1.6-2.3) mg/dL Albumin 3.0 L (3.5-5.0) g/dL 12/04/23 12/04/23 12/05/23 Range/Units 17:08 20:09 06:01 RBC (3.80-5.40) m/uL Hgb (11.4-16.0) gm/dL Hct (34.0-46.0) % RDW (11.5-15.5) % Chloride (98-107) mmol/L Carbon Dioxide (22-30) mmol/L BUN (7-17) mg/dL Creatinine (0.52-1.04) mg/dL Glucose (74-99) mg/dL POC Glucose (mg/dL) 156 H 147 H 143 H (70-110) mg/dL Calcium (8.4-10.2) mg/dL Magnesium (1.6-2.3) mg/dL Albumin (3.5-5.0) g/dL 12/05/23 12/05/23 Range/Units 06:45 06:45 RBC 3.45 L (3.80-5.40) m/uL Hgb 9.9 L (11.4-16.0) gm/dL Hct 31.8 L (34.0-46.0) % RDW 19.0 H (11.5-15.5) % Chloride 111 H (98-107) mmol/L Carbon Dioxide 21 L (22-30) mmol/L BUN 32 H (7-17) mg/dL Creatinine 1.36 H (0.52-1.04) mg/dL Glucose (74-99) mg/dL POC Glucose (mg/dL) (70-110) mg/dL Calcium (8.4-10.2) mg/dL Magnesium 2.5 H (1.6-2.3) mg/dL Albumin 3.0 L (3.5-5.0) g/dL Microbiology - Last 24 Hours (Table) 11/30/23 12:05 Blood Culture - Preliminary Blood Assessment and Plan Plan: Assessment Acute on chronic hypoxic respiratory failure, currently on 3 L of oxygen by nasal cannula, likely in the base of CHF. No clear indication for pneumonia. No evidence of pulm embolism Systolic heart failure with an ejection fraction of 40 to 45%, severe pulm hypertension, moderate degree of aortic stenosis Moderate degree of aortic stenosis as evident on the echocardiogram Chronic lower extremity edema Diabetes mellitus type 2 Acute kidney injury, likely secondary to cardiorenal factors Recent infection with COVID-19 infection PCR was negative at time of admission History of osteomyelitis of the left toe Diabetes mellitus type 2 Previous history of DVT and pulmonary embolism Paroxysmal A-fib with a controlled rate and currently on anticoagulants Hyperlipidemia Hypertension Obesity Plan Continue weaning down the FiO2 as tolerated to maintain saturation above 90% continue diuretics monitor renal function with creatinine Completed the course of antibiotics. Continue on LAsix 40mg IV daily Renal function improving DNR/DNI CODE STATUS
[2023-12-05 11:40] LABS: Glucose,Whole Blood 214 mg/dL (70-110)
[2023-12-05 12:18] LABS: Eosinophils # (M) 0.41 k/uL (0-0.7); Lymphocytes # (M) 0.89 k/uL (1.0-4.8); Monocytes # (M) 0.73 k/uL (0-1.0); Neutrophils # (M) 6.16 k/uL (1.3-7.7); Neutrophils % (M) 76 %; Nucleated Red Blood Cells 0 /100 WBC (0-0); Total Cells Counted 200
[2023-12-05 12:20] LABS: Platelet Count 257 k/uL (150-450)
[2023-12-05] MEDS: LACTULOSE 20 GM/30 ML CUP PO SCH ×2 (12:33→20:15)
[2023-12-05] MEDS: SODIUM CHLORIDE 0.9% 1,000 ML IV SCH (12:59)
--- NOTE | 2023-12-05 14:54 | P.PN ---
Subjective Progress Note Date: 12/05/23 Principal diagnosis: Heart failure The patient is an 88-year-old female patient with cardiomyopathy and aortic stenosis as well as diabetes and hypertension and dyslipidemia permanent atrial fibrillation was admitted to the hospital with acute respiratory failure secondary to pneumonia and CHF. She was seen and evaluated this morning. She still short of breath. She stated have bilateral lower extremity edema. Her pressure is marginal. She is on Lasix IV which has increased yesterday. Would advise continue patient on IV Lasix for additional 24 hours. Continue monitor the blood pressure. Continue monitor the kidney function and electrolytes. Creatinine has been stable. 12/05 patient is seen today in follow-up. Condition seems to be stable at this time. She has been on Lasix that was transitioned to once daily IV 40 mg.blood pressure is stable at 106/61, heart rate in the 70s and 80s, pulse ox 9096% on 3 L nasal cannula.BUN 32 creatinine 1.36 and hemoglobin 9.9. Examination is remarkable for severe bilateral lower extremity edema and diminished breathing sounds bilaterally and irregular rhythm with a systolic murmur Assessment Heart failure exacerbation secondary to systolic dysfunction Permanent atrial fibrillation with controlled heart rate Aortic stenosis Heart failure Multiple comorbid conditions Plan transition IV Lasix to oral Bumex 1 mg daily Continue oral anticoagulation Continue monitor the kidney function and electrolytes Nurse practitioner note has been reviewed, I agree with the documented findings and plan of care. Patient was seen and examined. Objective - Vital Signs Vital signs: Vital Signs Temp 98.1 F 12/05/23 08:32 Pulse 74 12/05/23 12:21 Resp 20 12/05/23 12:21 BP 106/61 12/05/23 12:21 Pulse Ox 90 L 12/05/23 12:21 FiO2 Intake & Output 12/04/23 12/05/23 12/05/23 18:59 06:59 18:59 Intake Total 620 260 490 Output Total 300 550 Balance 320 -290 490 Weight 98 kg Intake: IV 20 20 10 Invasive Line 3 10 10 Invasive Line 4 10 10 10 Oral 600 240 480 Output: Urine 300 550 Other: Voiding Method External Catheter External Catheter External Catheter # Voids 1 - Labs CBC & Chem 7: 12/05/23 06:45 12/05/23 06:45 Labs: Abnormal Lab Results - Last 24 Hours (Table) 12/04/23 12/04/23 12/05/23 Range/Units 17:08 20:09 06:01 RBC (3.80-5.40) m/uL Hgb (11.4-16.0) gm/dL Hct (34.0-46.0) % RDW (11.5-15.5) % Lymphocytes # (Manual) (1.0-4.8) k/uL Chloride (98-107) mmol/L Carbon Dioxide (22-30) mmol/L BUN (7-17) mg/dL Creatinine (0.52-1.04) mg/dL POC Glucose (mg/dL) 156 H 147 H 143 H (70-110) mg/dL Magnesium (1.6-2.3) mg/dL Albumin (3.5-5.0) g/dL 12/05/23 12/05/23 12/05/23 Range/Units 06:45 06:45 11:39 RBC 3.45 L (3.80-5.40) m/uL Hgb 9.9 L (11.4-16.0) gm/dL Hct 31.8 L (34.0-46.0) % RDW 19.0 H (11.5-15.5) % Lymphocytes # (Manual) 0.89 L (1.0-4.8) k/uL Chloride 111 H (98-107) mmol/L Carbon Dioxide 21 L (22-30) mmol/L BUN 32 H (7-17) mg/dL Creatinine 1.36 H (0.52-1.04) mg/dL POC Glucose (mg/dL) 214 H (70-110) mg/dL Magnesium 2.5 H (1.6-2.3) mg/dL Albumin 3.0 L (3.5-5.0) g/dL Microbiology - Last 24 Hours (Table) 11/30/23 12:05 Blood Culture - Preliminary Blood
[2023-12-05 16:03] LABS: Glucose,Whole Blood 97 mg/dL (70-110)
[2023-12-05 20:10] LABS: Glucose,Whole Blood 164 mg/dL (70-110)
[2023-12-05] MEDS: SENNOSIDES-DOCUSATE SODIUM 1 EACH TAB PO SCH (20:15)
[2023-12-05] MEDS: MELATONIN 3 MG TABLET PO SCH (20:15)
[2023-12-05] MEDS: ATORVASTATIN 10 MG TAB PO SCH (20:15)
[2023-12-06] MEDS: guaiFENesin SYRUP 100MG/5ML 200 MG/10 ML CUP PO SCH ×5 (03:12→15:34)
[2023-12-06 06:09] LABS: Glucose,Whole Blood 132 mg/dL (70-110)
[2023-12-06] MEDS: INSULIN ASPART (NovoLOG) 100 UNIT/ML VIAL SQ SCH ×2 (06:11→12:19)
[2023-12-06] MEDS: METOCLOPRAMIDE 5 MG TAB PO SCH ×2 (06:37→12:19)
[2023-12-06] MEDS: DAPAGLIFLOZIN PROPANEDIOL 5 MG TABLET PO SCH (08:24)
[2023-12-06] MEDS: ZINC SULFATE 220 MG CAP PO SCH (08:24)
[2023-12-06] MEDS: APIXABAN 2.5 MG TABLET PO SCH ×2 (08:24→15:33)
[2023-12-06] MEDS: CHOLECALCIFEROL 25 MCG (1000 IU) TABLET PO SCH (08:24)
[2023-12-06] MEDS: POTASSIUM CHLORIDE ER 20 MEQ TAB.ER PO SCH ×3 (08:25→15:31)
[2023-12-06] MEDS: LACTULOSE 20 GM/30 ML CUP PO SCH (08:25)
[2023-12-06] MEDS: ASCORBIC ACID 500 MG TAB PO SCH (08:25)
[2023-12-06] MEDS: METOPROLOL TARTRATE 25 MG TAB PO SCH ×2 (08:25→15:33)
[2023-12-06] MEDS: MAGNESIUM OXIDE 400 MG TAB PO SCH ×3 (08:25→15:31)
[2023-12-06] MEDS: TRIAMCINOLONE 0.1% CREAM 80 GM TUBE TOPICAL SCH (08:28)
[2023-12-06] MEDS ORDERED: BUMETANIDE 1 MG TAB PO SCH (09:00)
[2023-12-06] MEDS: BUDESONIDE 1 MG/2 ML NEBU INHALATION SCH (09:05)
[2023-12-06] MEDS: IPRATROPIUM-ALBUTEROL 3 ML NEB INHALATION SCH ×3 (09:05→16:04)
--- NOTE | 2023-12-06 10:55 | P.CONS ---
History of Present Illness - Reason for Consult Consult date: 12/06/23 Not eating well, abnormal finding on CT Requesting physician: India Conway - Chief Complaint Difficulty breathing, COVID-19 - History of Present Illness This is a pleasant 88-year-old white female who was sent in to the emergency department from [facility] concerns for difficulty breathing. Apparently patient had been recently diagnosed with COVID-19 infection 2-3 weeks ago and they stated she was not improving much. She has been admitted to the hospital for acute respiratory failure secondary to pneumonia and congestive heart failure. Since 11/30/2023 and was followed by cardiology, pulmonology and infectious disease. Past medical history includes cardiomyopathy and aortic stenosis, diabetes, hypertension, dyslipidemia, and atrial fibrillation on anticoagulation. As part of her workup in the emergency department she had a CT angiogram of the chest that reported a distended esophagus with layering fluid is small hiatal hernia. Correlate for any significant gastroesophageal reflux disease and the patient. Gastroenterology was consulted stating the patient is not eating well with abnormal finding on CT. This patient has a history of dy sphagia and states sometimes food will come back up. She had a recent EGD done 01/28/[address] Cast for dysphagia with normal findings and reported likely due to dysmotility. During this evaluation she is currently sitting up and eating a regular breakfast without any difficulty swallowing. She states she is not having any difficulty swallowing and is eating fine. She states on occasion she will have some difficulty where she feels that it will reflux up. She denies any nausea or vomiting, no abdominal pain. States she does have a history of GERD however she has no medications listed for GERD on her home medications. Review of Systems REVIEW OF SYSTEMS: CARDIOPULMONARY: No chest pain, does have some shortness of breath. Gastrointestinal: No abdominal pain. No nausea or vomiting. No hematemesis, coffee-ground emesis. No rectal bleeding, or melena. No difficulty swallowing. Patient states she has acid reflux and at times food will regurgitate up. GENITOURINARY: No dysuria or hematuria. MUSCULOSKELETAL: Reports normal range of motion. SKIN: No rashes. No jaundice. ENDOCRINE: No chills, fevers. No excessive weight gain or loss. No polydipsia or polyuria. PSYCHIATRIC: Unremarkable. NEUROLOGY: No change in mental status. Denies dizziness, headache. ENT: Vision unremarkable. CONSTITUTIONAL: No recent weight loss. No fever, chills, night sweats. 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 lt leg gives out wears brace History of Any Multi-Drug Resistant Organisms: MRSA Year Discovered:: 01/22/22 MDRO Source:: Left Leg Past Surgical History: Back Surgery, Breast Surgery, Cholecystectomy, Joint Replacement, Orthopedic Surgery Additional Past Surgical History / Comment(s): thelma knee replac; L shoulder re plac.; carpel tunnel vaginal duct cyst; benign breast surg; cataracts; retinal repair left eye. BAck surgery, hernia repair Past Anesthesia/Blood Transfusion Reactions: No Reported Reaction Past Psychological History: Depression Smoking Status: Never smoker Past Alcohol Use History: None Reported Past Drug Use History: None Reported - Past Family History Father Family Medical History: Deep Vein Thrombosis (DVT) Son(s) Family Medical History: Deep Vein Thrombosis (DVT) Mother Family Medical History: Cancer Additional Family Medical History / Comment(s): Mother had cancer in her back. Daughter(s) Family Medical History: Blood Disorder Additional Family Medical History / Comment(s): Daughter has MTHFR factor and pt's grandson has lyme factor V and grand daughter has MTHFR. Medications and Allergies Home Medications Medication Instructions Recorded Confirmed Type Simvastatin [Zocor] 10 mg PO HS 08/25/17 11/30/23 History metFORMIN HCL [Glucophage] 1,000 mg PO BID@0800,1600 08/25/17 11/30/23 History Potassium Chloride [Klor-Con 20] 20 meq PO BID@0800,1600 08/19/19 11/30/23 History Apixaban [Eliquis] 5 mg PO BID@0800,1600 12/13/19 11/30/23 History Furosemide [Lasix] 80 mg PO BID@0800,1600 07/01/21 11/30/23 History Empagliflozin [Jardiance] 10 mg PO DAILY@0800 01/21/22 11/30/23 History Dulaglutide [Trulicity] 1.5 mg SQ FR 01/12/23 11/30/23 History Acetaminophen [Tylenol] 650 mg PO Q4H PRN 11/30/23 11/30/23 History Ascorbic Acid [Vitamin C] 500 mg PO DAILY@0800 11/30/23 11/30/23 History Cholecalciferol [Vitamin D3 (25 75 mcg PO DAILY 11/30/23 11/30/23 History Mcg = 1000 Iu)] Ibuprofen [Motrin] 600 mg PO Q6H PRN 11/30/23 11/30/23 History Magnesium Oxide [Mag-Ox] 250 mg PO BID@0800,1600 11/30/23 11/30/23 History Melatonin 3 mg PO HS 11/30/23 11/30/23 History Metoclopramide HCl [Reglan] 5 mg PO AC-TID 11/30/23 11/30/23 History Metoprolol Tartrate [Lopressor] 25 mg PO BID@0800,1600 11/30/23 11/30/23 History Ondansetron [Zofran] 4 mg PO Q6H PRN 11/30/23 11/30/23 History Sennosides/Docusate Sodium [Senna 2 tab PO HS 11/30/23 11/30/23 History Plus 8.6-50 mg Tablet] Zinc Sulfate [Orazinc] 220 mg PO DAILY@0800 11/30/23 11/30/23 History guaiFENesin [guaiFENesin Oral 200 mg PO Q4H PRN 11/30/23 11/30/23 History Solution] Allergies Allergy/AdvReac Type Severity Reaction Status Date / Time Penicillins Allergy Rash/Hives Verified 11/30/23 12:55 azithromycin AdvReac Dyspnea & Verified 11/30/23 12:55 nausea ciprofloxacin [From Cipro] AdvReac Dyspnea & Verified 11/30/23 12:55 nausea Physical Exam Vitals: Vital Signs Temp Pulse Pulse Resp BP BP Pulse Ox 12/06/23 08:22 97.9 F 85 22 100/66 12/06/23 03:11 98 F 81 16 116/73 96 12/06/23 00:34 98 F 77 18 122/76 96 12/05/23 20:21 98.4 F 82 20 96/61 96 12/05/23 16:05 98.4 F 83 20 112/69 97 12/05/23 12:21 74 20 106/61 90 L 12/05/23 08:56 88 12/05/23 08:43 86 96 Intake and Output 12/05/23 12/06/23 12/06/23 22:59 06:59 14:59 Intake Total 490 Balance 490 Intake: IV 10 Invasive Line 5 10 Oral 480 Other: Voiding Method External Catheter External Catheter General appearance: The patient is alert, oriented, appears in no acute distress. HET: Head is normocephalic and atraumatic. Conjunctiva pink. Sclera anicteric. Neck: Supple without lymphadenopathy. Trachea midline. Heart: Regular. Lungs: Equal expansion, normal respiratory effort. Abdomen: Soft, nontender, nondistended. No guarding or rigidity. Skin: No rashes. No jaundice. Extremities: Normal skin color and turgor. No pedal edema. Neurological: No focal deficits. Alert and oriented x3. Results CBC & Chem 7: 12/05/23 06:45 12/05/23 06:45 Labs: Abnormal Lab Results - Last 24 Hours (Table) 12/05/23 12/05/23 12/05/23 Range/Units 06:45 06:45 11:39 RBC 3.45 L (3.80-5.40) m/uL Hgb 9.9 L (11.4-16.0) gm/dL Hct 31.8 L (34.0-46.0) % RDW 19.0 H (11.5-15.5) % Lymphocytes # (Manual) 0.89 L (1.0-4.8) k/uL Chloride 111 H (98-107) mmol/L Carbon Dioxide 21 L (22-30) mmol/L BUN 32 H (7-17) mg/dL Creatinine 1.36 H (0.52-1.04) mg/dL POC Glucose (mg/dL) 214 H (70-110) mg/dL Magnesium 2.5 H (1.6-2.3) mg/dL Albumin 3.0 L (3.5-5.0) g/dL 12/05/23 12/06/23 Range/Units 20:08 05:57 RBC (3.80-5.40) m/uL Hgb (11.4-16.0) gm/dL Hct (34.0-46.0) % RDW (11.5-15.5) % Lymphocytes # (Manual) (1.0-4.8) k/uL Chloride (98-107) mmol/L Carbon Dioxide (22-30) mmol/L BUN (7-17) mg/dL Creatinine (0.52-1.04) mg/dL POC Glucose (mg/dL) 164 H 132 H (70-110) mg/dL Magnesium (1.6-2.3) mg/dL Albumin (3.5-5.0) g/dL Microbiology - Last 24 Hours (Table) 11/30/23 11:50 Blood Culture - Final Blood 11/30/23 12:05 Blood Culture - Preliminary Blood Comments: Chest CT angiogram 1. Patient is breathing during the scan. This limits assessment for pulmonary embolus. No obvious large central or definite lobar branch pulmonary embolus. Many of the segmental and more distal branches are very limited or nondiagnostic and emboli in these locations cannot be adequately excluded on the basis of this exam. Cardiomegaly with prominent refluxing contrast into the hepatic veins suggesting elevated cardiac pressures. Pulmonary arterial hypertension and small left pleural effusion. Correlate for mild CHF. Additional patchy obesity at the left base could represent atelectasis or developing infiltrate versus patchy pulmonary edema. There may be underlying tracheobronchial malacia particularly at the byron. Distended esophagus with layering fluid and small hiatal hernia. Correlate for any significant gastroesophageal reflux disease in this patient. Direct visualization as clinically indicated CT scan - chest: report reviewed Assessment and Plan (1) GERD (gastroesophageal reflux disease) Narrative/Plan: 88-year-old female who has been hospitalized for several days for congestive heart failure, pneumonia with recent Covid 19 infection. During the hospitalization she underwent a CT angiogram of the chest which reported distended esophagus with layering fluid and small hiatal hernia correlate for significant GERD. Patient does state that she has gastric reflux she has been seen for this and dysphasia in the past and had a recent EGD done less than [address] Ac without any acute findings. Possible etiology may also include esophageal dysmotility due to age and possible diabetes mellitus. Patient currently is eating breakfast regular diet without any difficulty with swallowing. She denies any nausea or vomiting. We will start the patient on Protonix 40 mg daily and recommend continued treatment. Certainly if symptoms continue or persist she may follow-up with gastroenterology on an outpatient basis. No plans for endoscopic evaluation at this time. Current Visit: No Status: Acute Code(s): K21.9 - GASTRO-ESOPHAGEAL REFLUX DISEASE WITHOUT ESOPHAGITIS SNOMED Code(s): 661251655 (2) Diabetes Current Visit: Yes Status: Acute Code(s): E11.9 - TYPE 2 DIABETES MELLITUS WITHOUT COMPLICATIONS SNOMED Code(s): 89154385 (3) Respiratory failure Current Visit: Yes Status: Acute Code(s): J96.90 - RESPIRATORY FAILURE, UNSP, UNSP W HYPOXIA OR HYPERCAPNIA SNOMED Code(s): 067165998 (4) Atrial fibrillation Current Visit: No Status: Acute Code(s): I48.91 - UNSPECIFIED ATRIAL FIBRILLATION SNOMED Code(s): 87696131 (5) CHF (congestive heart failure) Current Visit: No Status: Acute Code(s): I50.9 - HEART FAILURE, UNSPECIFIED SNOMED Code(s): 49629319 Plan: 1. Continue symptomatic and supportive care 2. Will start patient on Protonix 40 mg daily 3. Discussed gastroesophageal reflux measures and esophageal dysmotility measures including eating small frequent meals, chewing her food up well, followed by taking small sips to drink. Avoid acidic foods, caffeine, and eating late at night. 4. Patient underwent recent EGD less than 2 years ago without any abnormal findings. No plans on endoscopic evaluation at this time 5. Patient is cleared by gastroenterology for discharge. If symptoms persist she certainly may follow-up in outpatient basis. Thank you for this consultation, we will sign off at this time. Dr. Ankit Klein I agree with the dictator's note, documented as a scribe by Jane Mullen.
[2023-12-06 11:51] LABS: Glucose,Whole Blood 196 mg/dL (70-110)
--- NOTE | 2023-12-06 12:00 | P.PN ---
Subjective Progress Note Date: 12/06/23 Principal diagnosis: Heart failure The patient is an 88-year-old female patient with cardiomyopathy and aortic stenosis as well as diabetes and hypertension and dyslipidemia permanent atrial fibrillation was admitted to the hospital with acute respiratory failure secondary to pneumonia and CHF. She was seen and evaluated this morning. She still short of breath. She stated have bilateral lower extremity edema. Her pressure is marginal. She is on Lasix IV which has increased yesterday. Would advise continue patient on IV Lasix for additional 24 hours. Continue monitor the blood pressure. Continue monitor the kidney function and electrolytes. Creatinine has been stable. 12/05 patient is seen today in follow-up. Condition seems to be stable at this time. She has been on Lasix that was transitioned to once daily IV 40 mg.blood pressure is stable at 106/61, heart rate in the 70s and 80s, pulse ox 9096% on 3 L nasal cannula.BUN 32 creatinine 1.36 and hemoglobin 9.9. 12/06 The patient has no new concerns today. Lower extremity edema appears to be stable at her baseline. No worsening shortness of breath. No complaints of chest pain. Blood pressure 100/66, heart rate in the 80s and 90s, pulse ox 96% on 2 L nasal cannula. Examination is remarkable for severe bilateral lower extremity edema and diminished breathing sounds bilaterally and irregular rhythm with a systolic murmur Assessment Heart failure exacerbation secondary to systolic dysfunction Permanent atrial fibrillation with controlled heart rate Aortic stenosis Heart failure Multiple comorbid conditions Plan Continue oral Bumex 1 mg daily Continue oral anticoagulation Continue monitor the kidney function and electrolytes Patient is cleared for discharge from cardiology and may follow-up in the office with Dr. Delacruz in 2 weeks. Nurse practitioner note has been reviewed, I agree with the documented findings and plan of care. Patient was seen and examined. Objective - Vital Signs Vital signs: Vital Signs Temp 97.9 F 12/06/23 08:22 Pulse 92 12/06/23 09:20 Resp 22 12/06/23 08:22 BP 100/66 12/06/23 08:22 Pulse Ox 96 12/06/23 09:05 FiO2 Intake & Output 12/05/23 12/06/23 12/06/23 18:59 06:59 18:59 Intake Total 740 240 Balance 740 240 Intake: IV 20 Invasive Line 4 10 Invasive Line 5 10 Oral 720 240 Other: Voiding Method External Catheter External Catheter Diaper Incontinent # Voids 1 - Labs CBC & Chem 7: 12/05/23 06:45 12/05/23 06:45 Labs: Abnormal Lab Results - Last 24 Hours (Table) 12/05/23 12/05/23 12/05/23 Range/Units 06:45 11:39 20:08 Lymphocytes # (Manual) 0.89 L (1.0-4.8) k/uL POC Glucose (mg/dL) 214 H 164 H (70-110) mg/dL 12/06/23 Range/Units 05:57 Lymphocytes # (Manual) (1.0-4.8) k/uL POC Glucose (mg/dL) 132 H (70-110) mg/dL Microbiology - Last 24 Hours (Table) 11/30/23 12:05 Blood Culture - Final Blood 11/30/23 11:50 Blood Culture - Final Blood
[2023-12-06 12:38] VITALS: BP 106/69; RESP 20; TEMP 98
--- NOTE | 2023-12-06 12:41 | P.PN ---
Subjective Progress Note Date: 12/06/23 On 12/05/2023, I am seeing this patient for a follow-up regarding acute on top of chronic hypoxic respiratory failure attributed to a combination of acute on top of chronic diastolic heart failure and a possible left lower lobe healthcare associated pneumonia. The patient was hospitalized from 42-year-old male a large for difficulty in breathing. Apparently she tested positive for COVID-19 infection a week prior to her current admission. She is known to have chronic diastolic heart failure and chronic edema lower extremity along with chronic A- fib, previous DVT/PE, diabetes mellitus, hypertension and hyperlipidemia. The patient has been previously vaccinated for COVID-19. Upon arrival, the patient was febrile. Chest x-ray showed cardiomegaly and pulm vascular congestion. There was elevated D-dimer. The CT angiogram showed no evidence of any pulmonary embolism. There was cardiomegaly and hepatic vein dilatation consistent with heart failure and the patient also had dilatation of the pulmonary artery with a small left-sided pleural effusion. Labs were reviewed. proBNP was elevated at time of admission at 5140. The patient was started on IV Lasix. She was placed on oxygen initially at 5 L of oxygen by nasal cannula. She is quite weak and she is wheelchair-bound. The patient was subsequently weaned down to 3l echo of the heart was moderate valvular dysfunction of oxygen by nasal cannula. The patient was covered with antibiotics and the patient is currently on no antibiotics. The patient is currently on Lasix 40 mg IV every 24 hours. Creatinine currently is also abnormal as the patient has an acute on top of her chronic kidney injury in addition. Echo of the heart shows a mild to moderate LV dysfunction with an ejection fraction of 40 to 45% and the patient was found to have severe RV and RA dilatation with a right ventricular systolic pressure of 66 and severe aortic sclerosis with moderate aortic stenosis with a gradient of 48 and a mean gradient of 34. Noted during the course of her hospitalization, the patient was covered with a combination of vancomycin and Azactam and both antibiotics are currently on hold. She is a DNR/DNI CODE STATUS. The patient is quite debilitated. She is currently being worked on with physical therapy to be moved up on a chair. She cannot walk independently obviously. She is a sn[facility] resident. BUN is 32 with a creatinine 1.3 and a sodium level is 141. The viscosity 0.4 with a hemoglobin of 9.9. The creati nine is slightly improved compared to yesterday. On today's evaluation of 12/06/2023, the patient is sitting up on a chair. She is, comfortable. No significant shortness of breath pH she remains on Bumex 1 mg by mouth daily. She continues to have some edema lower extremities bilaterally although this is improving. No chest pain. No cough or sputum production. She is chronically debilitated and she is unable to move independently. She was helped with physical therapy to be more than a chair. She is a DNR/DNI CODE STATUS. Sash Repairer on the case. The patient is currently on 2 L of oxygen by nasal cannula with a pulse ox of 97%. She is going to be transferred to snf. Objective - Vital Signs Vital signs: Vital Signs Temp 97.9 F 12/06/23 08:22 Pulse 92 12/06/23 09:20 Resp 22 12/06/23 08:22 BP 100/66 12/06/23 08:22 Pulse Ox 96 12/06/23 09:05 FiO2 Intake & Output 12/05/23 12/06/23 12/06/23 18:59 06:59 18:59 Intake Total 740 240 Balance 740 240 Intake: IV 20 Invasive Line 4 10 Invasive Line 5 10 Oral 720 240 Other: Voiding Method External Catheter External Catheter Diaper Incontinent # Voids 1 - Exam GENERAL EXAM: Alert, 88-year-old female, resting in bed, on 2 L nasal cannula, in no apparent distress. HEAD: Normocephalic and atraumatic EYES: Normal reaction of pupils, equal size. NOSE: Clear with pink turbinates. THROAT: No erythema or exudates. NECK: No masses, no JVD. CHEST: No chest wall deformity. LUNGS: Equal air entry with end expiratory wheeze. CVS: S1 and S2 normal with no audible murmur, regular rhythm. No extra heart sounds ABDOMEN: Obese abdomen, no hepatosplenomegaly, active bowel sounds, no guarding or rigidity. SPINE: No scoliosis or deformity SKIN: Left lower extremity erythema and edema CENTRAL NERVOUS SYSTEM: No focal deficits, tone is normal in all 4 extremities. EXTREMITIES: Bilateral lower extremity edema, left greater than right. No clubbing, or cyanosis. Peripheral pulses are intact. - Labs CBC & Chem 7: 12/05/23 06:45 12/05/23 06:45 Labs: Abnormal Lab Results - Last 24 Hours (Table) 12/05/23 12/05/23 12/05/23 Range/Units 06:45 11:39 20:08 Lymphocytes # (Manual) 0.89 L (1.0-4.8) k/uL POC Glucose (mg/dL) 214 H 164 H (70-110) mg/dL 12/06/23 Range/Units 05:57 Lymphocytes # (Manual) (1.0-4.8) k/uL POC Glucose (mg/dL) 132 H (70-110) mg/dL Microbiology - Last 24 Hours (Table) 11/30/23 12:05 Blood Culture - Final Blood 11/30/23 11:50 Blood Culture - Final Blood Assessment and Plan Plan: Assessment Acute on chronic hypoxic respiratory failure, currently on 2 L of oxygen by nasal cannula, likely in the base of CHF. No clear indication for pneumonia. No evidence of pulm embolism Systolic heart failure with an ejection fraction of 40 to 45%, severe pulm hypertension, moderate degree of aortic stenosis Moderate degree of aortic stenosis as evident on the echocardiogram Chronic lower extremity edema Diabetes mellitus type 2 Acute kidney injury, likely secondary to cardiorenal factors Recent infection with COVID-19 infection PCR was negative at time of admission History of osteomyelitis of the left toe Diabetes mellitus type 2 Previous history of DVT and pulmonary embolism Paroxysmal A-fib with a controlled rate and currently on anticoagulants Hyperlipidemia Hypertension Obesity Plan Clinically stable Currently on 2 L of oxygen by nasal cannula Patient is currently on Bumex 4 mg by mouth daily and IV Lasix has been discontinued Patient completed the course of antibiotics Clinically stable Hemodynamically stable Discharge planning is in progress DNR/DNI CODE STATUS
--- NOTE | 2023-12-06 13:09 | P.PN ---
Subjective Progress Note Date: 12/05/23 HISTORY OF PRESENT ILLNESS This is an 88-year-old female patient of [facility], with past medical history of PE and DVT, morbid obesity, diabetes mellitus type 2, hypertension, hyperlipidemia, history of spinal stenosis status post surgery in [place], history of small bowel obstruction secondary to incarcerated umbilical hernia status post repair of the hernia with resolution of the bowel obstruction, history of atrial fibrillation, history of chronic diastolic heart failure with significant for hypertension and significant venous hypertension both lower extremities and significant edema, patient patient has been almost in a sedentary lifestyle noncompliant with her diet sitting in her wheelchair most of the day, has been on chronic diuretic use in the form of Lasix 80 mg orally twice every day, patient developed to have Covid 19 infection about a week ago, and patient was not treated with Paxil over the that time because the patient was feeling better, is that she was treated with supportive care including vitamin D vitamin C and zinc sulfate, patient also ended up having pneumonia that was treated with oral antibiotic at [facility], I received a call from the staff at [facility] stated that the patient oxygenation is dropping to the lower 80s and the patient is hypotensive not able to get a temperature so she was instructed to go to the emergency department at [facility], she was seen in the emergency department and she had a chest x-ray that showed pulmonary vascular congestion as well as left lower lobe infiltrate, per protocol Dendron level came back elevated suggestive of possible pneumonia due to her ALLERGIES including penicillin and Zithromax and fluoroquinolones I've elected to place the patient on vancomycin as well as Azactam to cover for gram- positive and gram-negative along with anaerobes, patient also did have a CT angiography of the chest because of her atrial fibrillation with the rapid ventricular response that came back negative for PE but it did show evidence of possible left lower lobe infiltrate, patient also did have a venous Doppler of both lower extremity that documented a chronic thrombus. Patient was admitted to the hospital he would she was seen in consultation by cardiology for her heart failure she was also placed on Lasix 60 mg IV push every 12 hours, she was also seen in consultation by pulmonary medicine. 12/01: Patient is laying down in bed is feeling a bit better today, she continues to be so short of breath, she continues to have some coughing, she has been maintained on the IV Lasix 60 mg IV push every 12 hours however she appears to be a bit hypotensive we will decrease at 40 mg IV push every 12 hours, patient also continues to be on vancomycin and is active her pneumonia has been seen in consultation by cardiology as well as pulmonary medicine we will continue current treatment plan, continue oxygen support, try to wean her oxygen down, continue with input and output and daily weight. 12/02: Patient did have significant drop in her BP, was placed on Midodrine and she is feeling better, legs are swollen and she continues to have orthopnea and dyspnea at rest, lest coughing and less phlegm production, her daughter is still at bedside and she is postponing her trip till Mom is better, we will continue with Vanco and Azactam and hopefully will discontinue Vanco in 24 hours and continue with Azactam 12/03: Patient is seen today in a follow-up. She is sleeping in bed. She apparently was up quite a bit last night. Patient developed a redness from IV antibiotics most likely "red man" syndrome from the IV vancomycin. Patient is currently on both IV vancomycin and Azactam. We will discontinue the vancomycin at this time. Consult added for Dr. Aguila to manage antibiotics as patient has a number of antibiotic ALLERGIES. She has been on IV Lasix at 40 mg twice daily mild decrease to once daily. Patient remains afebrile, heart rate in the 50s to 80s, blood pressure 99/56 up to 137/71. Pulse ox is 100% on 3 L. Repeat blood work reveals WBC 6.6, hemoglobin 9.1, platelet count 164. Electrolytes are normal. BUN 30 creatinine 1.46. 12/04: Patient appears better but continues to have croupy dry cough we will add Pulmicort 1 mg Nebulization bid, we will continue with current treatment plan we will continue with Azactam , vancomycin was discontinued due to either red man syndrome or allergic reaction, 12/05: Over the weekend, vancomycin was discontinued and patient appeared to have a "red man" syndrome reaction on Tuesday. She remains on Azactam which will be discontinued. She continues to have lower extremity edema which is about at her baseline. She is continued on IV Lasix 40 mg changed to daily today. Blood pressure is improved while 6/61, heart rate is controlled in the 70s and 80s. WBC 8.1, hemoglobin 9.9. BUN 32 creatinine 1.36. Blood glucose running between 99 and 158. There is concern about a CAT scan done back on November 30 been mentioned distended esophagus with layering fluid and small hiatal hernia. Patient continues to have decreased appetite but she also states that she does not like the food. We will add in a GI consult tomorrow.. REVIEW OF SYSTEMS Constitutional: Reports no fever or chills, no night sweats. positive for weight change. Reports weakness, Reports fatigue, no lethargy, no daytime sleepiness. HEENT: No headache. No blurred vision or double vision, no loss of vision. No dizziness. No nasal drainage or congestion. No epistaxis. No sore throat, hard of hearing Lungs: positive for shortness of breath, positive for dry cough, no sputum production. positive for wheezing. Cardiovascular: No chest pain, positive for lower extremity edema, positive for palpitations, no paroxysmal nocturnal dyspnea. No orthopnea. No lightheade dness or dizziness. No syncopal episodes. Abdominal: No abdominal pain. positive for nausea, no vomiting. No diarrhea. No constipation. No bloody or tarry stools. Reports loss of appetite. Genitourinary: No dysuria, increased frequency, urgency. No urinary retention, positive for urinary incontinence Musculoskeletal: No myalgias. Reports muscle weakness, Reports gait dysfunction, Reports falls. positive for back pain. No neck pain. Integumentary: Reports scattered maculopapular rash with excoriation on her bilateral arms and chest wall Neurologic: No aphasia. No facial droop. No change in mentation. No head injury. No headache. No paralysis. No paresthesia. Psychiatric: positive for depression. No anxiety. No mood swings. Endocrine: positive for abnormal blood sugars. positive for weight change. PHYSICAL EXAMINATION Gen: This is an 88-year-old female, sitting up in bed in no apparent distress. HEENT: Head is atraumatic, normocephalic. Pupils equal, round. Sclerae is anicteric, mucous membranes of the mouth are somewhat dry, there is minimal thrush. NECK: Supple. No JVD. No lymphadenopathy. No thyromegaly. LUNGS: Decreased breath sounds at the bases, few rhonchi, minimal expiratory wheezes, no chest wall tenderness, no intercostal retractions. HEART: first heart sound is depressed, second heart sound is normal, irreg ularly irregular, there is systolic ejection murmur 2/6 located at the left sternal border. ABDOMEN: morbidly obese abdomen, soft nontender nondistended, positive bowel sounds. EXTREMITIES: 2+ bilateral pitting edema to the lower extremities, chronic stasis dermatitis, there is bilateral foot drop. NEUROLOGICAL: Patient is awake, alert and oriented x3. Cranial nerves 2 through 12 are grossly intact significant weakness to both lower extremity his right more than left, bilateral foot drop Skin. 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 Acute Systolic heart failure. we will continue the patient Lasix to 40 mg IV push every day, continue patient on metoprolol 25 mg orally twice daily. Continue patient on Farxiga 10 mg po daily, Echocardiogram showed modertae decrease in LVF EF 45 % with severe Aortic stenosis, she may require TAVR. 2. Left lower lobe pneumonia. continue discontinued Vancomycin due to Red man syndrome Vs allergic reaction continue Azactam will be discontinued 3. Atrial fibrillation . Continue metoprolol 25 mg orally twice every day, continue patient on Eliquis 2.5 mg orally twice every day. 4. Anemia of chronic diseases. Stable at this time. 5. 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 has IVC filter in place 6. Valvular heart disease with severe tricuspid regurgitation, and severe Aortic stenosis with decrease LVF , needs TAVR 7. Severe pulmonary hypertension with RVSP 60 mmHg. continue patient on Metoprolol 25 mg orally bid continue patient on Lasix 40 mg IVP twice every day. 8. Hypertension and hypertensive cardiovascular disease. Continue patient on Metoprolol 25 mg po bid, we will continue to monitor BP very closely 9. Hyperlipidemia. Continue atorvastatin 10 mg at bedtime. 10. Diabetes mellitus type 2. Continue patient on Farxiga 10 mg po daily, Trulicity 1.5 mg SC q week , along with SSI. 11. Spinal stenosis status post laminectomy, stable. 12. Recurrent depression. Continue patient on Effexor 75 mg orally once every day. 13. Gastroesophageal reflux disease and GI prophylaxis. Protonix 40 mg po daily. 14. DVT prophylaxis. Eliquis 5 mg orally twice every day. 15. Hypotensive episode likely related to aggressive diuresis as well as orthostatic hypotension patient will continue on midodrine 10 mg orally 3 times every day. 16. Red man syndrome or Allergic reaction to vancomycin. we will contiue with benadryl and Clobetasol cream and off vanco 17. 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 can intake worker consult for discharge planning. 19. NO Code Objective - Vital Signs Vital signs: Vital Signs Temp 98.4 F 12/05/23 16:05 Pulse 83 12/05/23 16:05 Resp 20 12/05/23 16:05 BP 112/69 12/05/23 16:05 Pulse Ox 97 12/05/23 16:05 FiO2 Intake & Output 12/04/23 12/05/23 12/05/23 18:59 06:59 18:59 Intake Total 620 260 500 Output Total 300 550 Balance 320 -290 500 Weight 98 kg Intake: IV 20 20 20 Invasive Line 3 10 10 Invasive Line 4 10 10 10 Invasive Line 5 10 Oral 600 240 480 Output: Urine 300 550 Other: Voiding Method External Catheter External Catheter External Catheter # Voids 1 - Labs CBC & Chem 7: 12/05/23 06:45 12/05/23 06:45 Labs: Abnormal Lab Results - Last 24 Hours (Table) 12/04/23 12/05/23 12/05/23 Range/Units 20:09 06:01 06:45 RBC 3.45 L (3.80-5.40) m/uL Hgb 9.9 L (11.4-16.0) gm/dL Hct 31.8 L (34.0-46.0) % RDW 19.0 H (11.5-15.5) % Lymphocytes # (Manual) 0.89 L (1.0-4.8) k/uL Chloride (98-107) mmol/L Carbon Dioxide (22-30) mmol/L BUN (7-17) mg/dL Creatinine (0.52-1.04) mg/dL POC Glucose (mg/dL) 147 H 143 H (70-110) mg/dL Magnesium (1.6-2.3) mg/dL Albumin (3.5-5.0) g/dL 12/05/23 12/05/23 Range/Units 06:45 11:39 RBC (3.80-5.40) m/uL Hgb (11.4-16.0) gm/dL Hct (34.0-46.0) % RDW (11.5-15.5) % Lymphocytes # (Manual) (1.0-4.8) k/uL Chloride 111 H (98-107) mmol/L Carbon Dioxide 21 L (22-30) mmol/L BUN 32 H (7-17) mg/dL Creatinine 1.36 H (0.52-1.04) mg/dL POC Glucose (mg/dL) 214 H (70-110) mg/dL Magnesium 2.5 H (1.6-2.3) mg/dL Albumin 3.0 L (3.5-5.0) g/dL Microbiology - Last 24 Hours (Table) 11/30/23 11:50 Blood Culture - Final Blood 11/30/23 12:05 Blood Culture - Preliminary Blood
--- NOTE | 2023-12-06 13:14 | P.DS ---
Providers Date of admission: 11/30/23 14:42 Expected date of discharge: 12/06/23 Attending physician: Kinjal Liu Consults: 11/30/23 14:37 Consult Physician Routine Consulting Provider: Wei Gómez Consult Reason/Comments: respiratory failure Do you want consulting provider notified?: Yes Consult Physician Routine Consulting Provider: Yeison Garrido Consult Reason/Comments: chf Do you want consulting provider notified?: Yes 12/03/23 14:38 Consult Physician Routine Consulting Provider: Yue Aguila Consult Reason/Comments: abx management Do you want consulting provider notified?: Yes 12/06/23 07:39 Consult Physician Routine Consulting Provider: Patrizia Klein Consult Reason/Comments: not eating well, abn finding on CT of esophagus Do you want consulting provider notified?: Yes Primary care physician: Kinjal Liu Hospital Course: HISTORY OF PRESENT ILLNESS This is an 88-year-old female patient of [facility], with past medical history of PE and DVT, morbid obesity, diabetes mellitus type 2, hypertension, hyperlipidemia, history of spinal stenosis status post surgery in [place], history of small bowel obstruction secondary to incarcerated umbilical hernia status post repair of the hernia with resolution of the bowel obstruction, history of atrial fibrillation, history of chronic diastolic heart failure with significant for hypertension and significant venous hypertension both lower extremities and significant edema, patient patient has been almost in a sedentary lifestyle noncompliant with her diet sitting in her wheelchair most of the day, has been on chronic diuretic use in the form of Lasix 80 mg orally twice every day, patient developed to have Covid 19 infection about a week ago, and patient was not treated with Paxil over the that time because the patient was feeling better, is that she was treated with supportive care including vitamin D vitamin C and zinc sulfate, patient also ended up having pneumonia that was treated with oral antibiotic at [facility], I received a call from the staff at [facility] stated that the patient oxygenation is dropping to the lower 80s and the patient is hypotensive not able to get a temperature so she was instructed to go to the emergency department at [facility], she was seen in the emergency department and she had a chest x-ray that showed pulmonary vascular congestion as well as left lower lobe infiltrate, per protocol Vida level came back elevated suggestive of possible pneumonia due to her ALLERGIES including penicillin and Zithromax and fluoroquinolones I've elected to place the patient on vancomycin as well as Azactam to cover for gram- positive and gram-negative along with anaerobes, patient also did have a CT angiography of the chest because of her atrial fibrillation with the rapid ventricular response that came back negative for PE but it did show evidence of possible left lower lobe infiltrate, patient also did have a venous Doppler of both lower extremity that documented a chronic thrombus. Patient was admitted to the hospital he would she was seen in consultation by cardiology for her hea rt failure she was also placed on Lasix 60 mg IV push every 12 hours, she was also seen in consultation by pulmonary medicine. 12/01: Patient is laying down in bed is feeling a bit better today, she continues to be so short of breath, she continues to have some coughing, she has been maintained on the IV Lasix 60 mg IV push every 12 hours however she appears to be a bit hypotensive we will decrease at 40 mg IV push every 12 hours, patient also continues to be on vancomycin and is active her pneumonia has been seen in consultation by cardiology as well as pulmonary medicine we will continue cur rent treatment plan, continue oxygen support, try to wean her oxygen down, continue with input and output and daily weight. 12/02: Patient did have significant drop in her BP, was placed on Midodrine and she is feeling better, legs are swollen and she continues to have orthopnea and dyspnea at rest, lest coughing and less phlegm production, her daughter is still at bedside and she is postponing her trip till Mom is better, we will continue with Vanco and Azactam and hopefully will discontinue Vanco in 24 hours and continue with Azactam 12/03: Patient is seen today in a follow-up. She is sleeping in bed. She apparently was up quite a bit last night. Patient developed a redness from IV antibiotics most likely "red man" syndrome from the IV vancomycin. Patient is currently on both IV vancomycin and Azactam. We will discontinue the vancomycin at this time. Consult added for Dr. Aguila to manage antibiotics as patient has a number of antibiotic ALLERGIES. She has been on IV Lasix at 40 mg twice daily mild decrease to once daily. Patient remains afebrile, heart rate in the 50s to 80s, blood pressure 99/56 up to 137/71. Pulse ox is 100% on 3 L. Repeat blood work reveals WBC 6.6, hemoglobin 9.1, platelet count 164. Electrolytes are normal. BUN 30 creatinine 1.46. 12/04: Patient appears better but continues to have croupy dry cough we will add Pulmicort 1 mg Nebulization bid, we will continue with current treatment plan we will continue with Azactam , vancomycin was discontinued due to either red man syndrome or allergic reaction, 12/05: Over the weekend, vancomycin was discontinued and patient appeared to have a "red man" syndrome reaction on Tuesday. She remains on Azactam which will be discontinued. She continues to have lower extremity edema which is about at her baseline. She is continued on IV Lasix 40 mg changed to daily today. Blood pressure is improved while , heart rate is controlled in the 70s and 80s. WBC 8.1, hemoglobin 9.9. BUN 32 creatinine 1.36. Blood glucose running between 99 and 158. There is concern about a CAT scan done back on November 30 been mentioned distended esophagus with layering fluid and small hiatal hernia. Shilpa ent continues to have decreased appetite but she also states that she does not like the food. We will add in a GI consult tomorrow. 12/06: She has been seen this morning by cardiology and pulmonary medicine in both cleared her for discharge. Patient was also seen by GI and started on Protonix no other plan for intervention. She did have EGD done about a year and half ago that had no significant findings at that time. Patient has completed her course of IV antibiotics and then will be required at discharge. Patient will be discharged back to medical [place] today in stable condition. ASSESSMENT AND PLAN 1. Acute Systolic heart failure. Echocardiogram showed modertae decrease in LVF EF 45 % with severe Aortic stenosis. 2. Left lower lobe pneumonia. 3. Atrial fibrillation. 4. Anemia of chronic diseases. 5. 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 6. Valvular heart disease with severe tricuspid regurgitation, and severe Aortic stenosis with decrease LVF, needs TAVR 7. Severe pulmonary hypertension with RVSP 60 mmHg. 8. Hypertension and hypertensive cardiovascular disease. 9. Hyperlipidemia. 10. Diabetes mellitus type 2. 11. Spinal stenosis status post laminectomy, stable. 12. Recurrent depression. 13. Gastroesophageal reflux disease 14. Hypotensive episode likely related to aggressive diuresis as well as orthostatic hypotension. 15. Red man syndrome or Allergic reaction to vancomycin. 16. 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 Impression and plan of care have been directed as dictated by the signing physician. India Conway nurse practitioner acting as scribe for signing physician. Patient Condition at Discharge: Fair Plan - Discharge Summary Discharge Rx Participant: Yes New Discharge Prescriptions: New diphenhydrAMINE [Benadryl] 25 mg PO TID PRN cap PRN Reason: Itching Bumetanide [BUMEX] 1 mg PO DAILY tab Ipratropium-Albuterol Nebulize [Duoneb 0.5 mg-3 mg/3 ml Soln] 3 ml INHALATION RT-QID each Triamcinolone 0.1% Cream [Kenalog 0.1% Cream] 1 applic TOPICAL BID each INSULIN ASPART (NovoLOG) [NovoLOG (formulary)] 0 unit SQ ACHS each Budesonide [Pulmicort] 1 mg INHALATION RT-BID 14 Days ml Lactulose [Cephulac] 20 gm PO BID ml Dulaglutide [Trulicity] 1.5 mg SQ FR Apixaban [Eliquis] 2.5 mg PO BID@0800,1600 tab Dapagliflozin Propanediol [Farxiga] 5 mg PO DAILY@0800 tab Potassium Chloride ER [K-Dur 20] 20 meq PO DAILY #0 tab Pantoprazole [Protonix] 40 mg PO AC-BRKFST tab Continue Simvastatin [Zocor] 10 mg PO HS Melatonin 3 mg PO HS Ondansetron [Zofran] 4 mg PO Q6H PRN PRN Reason: Nausea And Vomiting Metoclopramide HCl [Reglan] 5 mg PO AC-TID guaiFENesin [guaiFENesin Oral Solution] 200 mg PO Q4H PRN PRN Reason: Airway Patency Metoprolol Tartrate [Lopressor] 25 mg PO BID@0800,1600 Cholecalciferol [Vitamin D3 (25 Mcg = 1000 Iu)] 75 mcg PO DAILY Acetaminophen [Tylenol] 650 mg PO Q4H PRN PRN Reason: Pain Magnesium Oxide [Mag-Ox] 250 mg PO BID@0800,1600 Ascorbic Acid [Vitamin C] 500 mg PO DAILY@0800 Sennosides/Docusate Sodium [Senna Plus 8.6-50 mg Tablet] 2 tab PO HS Discontinued metFORMIN HCL [Glucophage] 1,000 mg PO BID@0800,1600 Potassium Chloride [Klor-Con 20] 20 meq PO BID@0800,1600 Apixaban [Eliquis] 5 mg PO BID@0800,1600 Furosemide [Lasix] 80 mg PO BID@0800,1600 Empagliflozin [Jardiance] 10 mg PO DAILY@0800 Ibuprofen [Motrin] 600 mg PO Q6H PRN PRN Reason: dental pain Zinc Sulfate [Orazinc] 220 mg PO DAILY@0800 Dulaglutide [Trulicity] 1.5 mg SQ FR Discharge Medication List Simvastatin [Zocor] 10 mg PO HS 08/25/17 [History] Acetaminophen [Tylenol] 650 mg PO Q4H PRN 11/30/23 [History] Ascorbic Acid [Vitamin C] 500 mg PO DAILY@0800 11/30/23 [History] Cholecalciferol [Vitamin D3 (25 Mcg = 1000 Iu)] 75 mcg PO DAILY 11/30/23 [History] Magnesium Oxide [Mag-Ox] 250 mg PO BID@0800,1600 11/30/23 [History] Melatonin 3 mg PO HS 11/30/23 [History] Metoclopramide HCl [Reglan] 5 mg PO AC-TID 11/30/23 [History] Metoprolol Tartrate [Lopressor] 25 mg PO BID@0800,1600 11/30/23 [History] Ondansetron [Zofran] 4 mg PO Q6H PRN 11/30/23 [History] Sennosides/Docusate Sodium [Senna Plus 8.6-50 mg Tablet] 2 tab PO HS 11/30/23 [History] guaiFENesin [guaiFENesin Oral Solution] 200 mg PO Q4H PRN 11/30/23 [History] Apixaban [Eliquis] 2.5 mg PO BID@0800,1600 tab 12/06/23 [Rx] Budesonide [Pulmicort] 1 mg INHALATION RT-BID 14 Days ml 12/06/23 [Rx] Bumetanide [BUMEX] 1 mg PO DAILY tab 12/06/23 [Rx] Dapagliflozin Propanediol [Farxiga] 5 mg PO DAILY@0800 tab 12/06/23 [Rx] Dulaglutide [Trulicity] 1.5 mg SQ FR 12/06/23 [Rx] INSULIN ASPART (NovoLOG) [NovoLOG (formulary)] 0 unit SQ ACHS each 12/06/23 [Rx] Ipratropium-Albuterol Nebulize [Duoneb 0.5 mg-3 mg/3 ml Soln] 3 ml INHALATION RT-QID each 12/06/23 [Rx] Lactulose [Cephulac] 20 gm PO BID ml 12/06/23 [Rx] Pantoprazole [Protonix] 40 mg PO AC-BRKFST tab 12/06/23 [Rx] Potassium Chloride ER [K-Dur 20] 20 meq PO DAILY #0 tab 12/06/23 [Rx] Triamcinolone 0.1% Cream [Kenalog 0.1% Cream] 1 applic TOPICAL BID each 12/06/23 [Rx] diphenhydrAMINE [Benadryl] 25 mg PO TID PRN cap 12/06/23 [Rx] Follow up Appointment(s)/Referral(s): Paul Delacruz MD [STAFF PHYSICIAN] - 2 Weeks Kinjal Liu MD [Primary Care Provider] - 1 Week (at [facility]) Ambulatory/Diagnostic Orders: Complete Blood Count w/diff [LAB.AMB] Location: None Selected Comprehensive Metabolic Panel [LAB.AMB] Location: None Selected Magnesium [LAB.AMB] Location: None Selected Discharge Disposition: TRANSFER TO SNF/F
[2023-12-06 13:24] VITALS: PULSE 64
[2023-12-06 14:35] VITALS: BMI 35.9
[2023-12-06] MEDS: diphenhydrAMINE 25 MG CAP PO PRN (15:33)
--- NOTE | 2023-12-06 16:09 | P.PN ---
Subjective Progress Note Date: 12/05/23 Principal diagnosis: Reason for follow-up is drug rash and a question of UTI Patient is a 88-year-old female with a past medical history significant for diabetes mellitus hypertension hyperlipidemia osteoarthritis reflux presenting to the hospital from the local [facility] for evaluation of difficulty breathing apparently patient tested positive for COVID-19 few days ago before the patient was brought into the hospital patient be complaining of feeling weak, patient just completed melena elevated and a positive UA started on vancomycin and Azactam developing a rash prompting this infectious disease consultation. On today's evaluation that is 12/06/2023, the patient remains to be afebrile, the patient is breathing comfortably on 2 L nasal cannula oxygen, the patient denies any shortness of breath, the patient denies chest pain did have occasional dry cough , patient denies any nausea/vomiting abdominal pain or diarrhea, no urinary symptoms rash to the upper torso has decreased in intensity Patient with a white count of 8.1, creatinine is 1.36 repeat urine did not show any pyuria Objective - Vital Signs Vital signs: Vital Signs Temp 98.1 F 12/05/23 08:32 Pulse 74 12/05/23 12:21 Resp 20 12/05/23 12:21 BP 106/61 12/05/23 12:21 Pulse Ox 90 L 12/05/23 12:21 FiO2 Intake & Output 12/04/23 12/05/23 12/05/23 18:59 06:59 18:59 Intake Total 620 260 490 Output Total 300 550 Balance 320 -290 490 Weight 98 kg Intake: IV 20 20 10 Invasive Line 3 10 10 Invasive Line 4 10 10 10 Oral 600 240 480 Output: Urine 300 550 Other: Voiding Method External Catheter External Catheter External Catheter # Voids 1 - Exam GENERAL DESCRIPTION: An elderly female lying in bed in no distress RESPIRATORY SYSTEM: Unlabored breathing , decreased breath sounds at bases HEART: S1 S2 regular rate and rhythm , ABDOMEN: Soft , no tenderness EXTREMITIES: Diffuse swelling to the leg Skin : Did have maculopapular rash to the upper torso - Labs CBC & Chem 7: 12/05/23 06:45 12/05/23 06:45 Labs: Abnormal Lab Results - Last 24 Hours (Table) 12/04/23 12/04/23 12/05/23 Range/Units 17:08 20:09 06:01 RBC (3.80-5.40) m/uL Hgb (11.4-16.0) gm/dL Hct (34.0-46.0) % RDW (11.5-15.5) % Lymphocytes # (Manual) (1.0-4.8) k/uL Chloride (98-107) mmol/L Carbon Dioxide (22-30) mmol/L BUN (7-17) mg/dL Creatinine (0.52-1.04) mg/dL POC Glucose (mg/dL) 156 H 147 H 143 H (70-110) mg/dL Magnesium (1.6-2.3) mg/dL Albumin (3.5-5.0) g/dL 12/05/23 12/05/23 12/05/23 Range/Units 06:45 06:45 11:39 RBC 3.45 L (3.80-5.40) m/uL Hgb 9.9 L (11.4-16.0) gm/dL Hct 31.8 L (34.0-46.0) % RDW 19.0 H (11.5-15.5) % Lymphocytes # (Manual) 0.89 L (1.0-4.8) k/uL Chloride 111 H (98-107) mmol/L Carbon Dioxide 21 L (22-30) mmol/L BUN 32 H (7-17) mg/dL Creatinine 1.36 H (0.52-1.04) mg/dL POC Glucose (mg/dL) 214 H (70-110) mg/dL Magnesium 2.5 H (1.6-2.3) mg/dL Albumin 3.0 L (3.5-5.0) g/dL Microbiology - Last 24 Hours (Table) 11/30/23 12:05 Blood Culture - Preliminary Blood Assessment and Plan (1) Drug rash Current Visit: Yes Status: Acute Code(s): L27.0 - GEN SKIN ERUPTION DUE TO DRUGS AND MEDS TAKEN INTERNALLY SNOMED Code(s): 49447736 Plan: 1-patient developing a rash to the upper chest area along with itching likely "red man" syndrome related to the vancomycin which has been discontinued 2-patient with initially presented to hospital with weakness shortness of breath did have a low-grade fever elevated white count concern for possible UTI the patient did have positive UA CT angiogram mention question of pneumonia however the procalcitonin is significantly elevated 3-patient repeat UA did not show any pyuria patient did not have any urinary symptoms white count is normal, the patient rash has decreased in intensity of discontinuation of both vancomycin and Azactam and will monitor the patient closely off antibiotics Dictation was produced using [employer] dictation software. please excuse any grammatical, word or spelling errors. Time with Patient: Less than 30
--- NOTE | 2023-12-06 16:10 | P.PN ---
Subjective Progress Note Date: 12/06/23 Principal diagnosis: Reason for follow-up is drug rash and a question of UTI Patient is a 88-year-old female with a past medical history significant for diabetes mellitus hypertension hyperlipidemia osteoarthritis reflux presenting to the hospital from the local [facility] for evaluation of difficulty breathing apparently patient tested positive for COVID-19 few days ago before the patient was brought into the hospital patient be complaining of feeling weak, patient just completed melena elevated and a positive UA started on vancomycin and Azactam developing a rash prompting this infectious disease consultation. On today's evaluation that is 12/06/2023, the patient continues to be afebrile, the patient is breathing comfortably on 2 L nasal cannula oxygen, the patient denies any shortness of breath, the patient denies chest pain did have occasional dry cough , patient denies any nausea/vomiting abdominal pain or diarrhea, patient rash to the upper chest has decreased in intensity no new rash and feeling better Patient with a white count of 8.1, creatinine is 1.36 as of yesterday no lab draw today repeat urine did not show any pyuria Objective - Vital Signs Vital signs: Vital Signs Temp 98.0 F 12/06/23 12:21 Pulse 79 12/06/23 12:21 Resp 20 12/06/23 12:21 BP 106/69 12/06/23 12:21 Pulse Ox 97 12/06/23 12:21 FiO2 Intake & Output 12/05/23 12/06/23 12/06/23 18:59 06:59 18:59 Intake Total 740 240 Balance 740 240 Intake: IV 20 Invasive Line 4 10 Invasive Line 5 10 Oral 720 240 Other: Voiding Method External Catheter External Catheter Diaper Incontinent # Voids 1 - Exam GENERAL DESCRIPTION: An elderly female lying in bed in no distress RESPIRATORY SYSTEM: Unlabored breathing , decreased breath sounds at bases HEART: S1 S2 regular rate and rhythm , ABDOMEN: Soft , no tenderness EXTREMITIES: Diffuse swelling to the leg Skin : Did have maculopapular rash to the upper torso - Labs CBC & Chem 7: 12/05/23 06:45 12/05/23 06:45 Labs: Abnormal Lab Results - Last 24 Hours (Table) 12/05/23 12/06/23 12/06/23 Range/Units 20:08 05:57 11:49 POC Glucose (mg/dL) 164 H 132 H 196 H (70-110) mg/dL Microbiology - Last 24 Hours (Table) 11/30/23 12:05 Blood Culture - Final Blood 11/30/23 11:50 Blood Culture - Final Blood Assessment and Plan (1) Drug rash Current Visit: Yes Status: Acute Code(s): L27.0 - GEN SKIN ERUPTION DUE TO DRUGS AND MEDS TAKEN INTERNALLY SNOMED Code(s): 82617310 Plan: 1-patient developing a rash to the upper chest area along with itching likely "red man" syndrome related to the vancomycin which has been discontinued 2-patient with initially presented to hospital with weakness shortness of breath did have a low-grade fever elevated white count concern for possible UTI the patient did have positive UA CT angiogram mention question of pneumonia however the procalcitonin is significantly elevated 3-patient repeat UA did not show any pyuria patient did not have any urinary symptoms white count is normal, the patient rash has decreased in intensity of discontinuation of both vancomycin and Azactam, currently with no evidence of any UTI or pneumonia hence recommending no antibiotics on discharge Dictation was produced using [email or web address] dictation software. please excuse any grammatical, word or spelling errors. Time with Patient: Less than 30
[2023-12-07] MEDS ORDERED: PANTOPRAZOLE 40 MG TABLET PO SCH (07:30)
--- NOTE | 2023-12-08 17:20 | CDI ---
Documentation Clarification Form Date: 12/08/2023 05:01:37 PM From: Callie Truong Phone: Admit Date: 11/30/2023 02:42:00 PM Patient Name: Sybil Brandt Visit Number: [id number] Discharge Date: 12/06/2023 04:11:00 PM ATTENTION: The Clinical Documentation Specialists (CDI) and [facility] Coding Staff appreciate your assistance in clarifying documentation. Please respond to the clarification below the line at the bottom and electronically sign. The CDI & [facility] Coding staff will review the response and follow-up if needed. Please note: Queries are made part of the Legal Health Record. If you have any questions, please contact the author of this message via ITS. Dr. Kinjal Liu Diabetes is documented throughout Progress Notes. Additional specificity regarding the diabetes diagnosis is requested. History/Risk Factors: 88yo F, ACCHF, MR/TR/, DMII w CKD II, Gram- PNA, PHTN, HTN, HLD, depression, GERD, AHRF, perm A Fib, LEORA, UTI Clinical Indicators: Glucose: 11/30 141 12/01 133- 214 12/02 129- 199 12/03 144- 214 Urine Glucose: 3-4+ Treatment: Novolog 0 unit SQ ACHS each Home medications: Glucophage 1,000 mg PO BID; Jardiance 10 mg PO DAILY; Trulicity 1.5 mg SQ Please clarify the type of diabetes, if known: [ x ] Diabetes Type 2with hyperglycemia [ ] Other, please specify [ ] Unable to Determine (Template Last Revised: January 2021) MTDD
--- NOTE | 2023-12-09 11:27 | CDI ---
Documentation Clarification Form Date: 12/09/2023 11:06:29 AM From: Mel Johansen RN, CCDS Email: [email or web address] Admit Date: 11/30/2023 02:42:00 PM Patient Name: Sybil Brandt Visit Number: [id number] Discharge Date: 12/06/2023 04:11:00 PM ATTENTION: The Clinical Documentation Specialists (CDI) and [facility] Coding Staff appreciate your assistance in clarifying documentation. Please respond to the clarification below the line at the bottom and electronically sign. The CDI & [facility] Coding staff will review the response and follow-up if needed. Please note: Queries are made part of the Legal Health Record. If you have any questions, please contact the author of this message via ITS. Dr. Kinjal Liu The patient had pneumonia, tachycardia and fever. Based on this information and the findings below, is there an additional diagnosis that is clinically appropriate for this patient? History/Risk Factors: DM, PE, GERD, paroxysmal A fib, CHF, pulmonary HTN, HTN, morbid obesity, CKD 2, depression, recent Covid infection. The patient presented from long-term due to low oxygen level, hypotensive and unable to get a temperature. Admitted with CHF and pneumonia. Clinical Indicators: 11/30 ED: "Leukocytosis." 11/30 H&P: "Acute diastolic heart failure. Left lower lobe pneumonia. I've elected to place the patient on Vancomycin as well as Azactam to cover for gram- positive and gram-negative along with anaerobes." 11/30 WBC: 13.0 12/01 Procalcitonin: 0.32 11/30-12/01 Lactic acid: 2.5-2.4-3.3-2.6-1.5 Vitals signs: 11/30 Temp 100.3-100, HR 113, RR 34, BP 98/53 Treatment: 12/03 ID Consult: "low-grade fever 100.3 F that has subsequently resolved. Patient did have occasional tachycardia, mildly hypotensive and hypoxic requiring supplemental oxygen. Patient did have a white count of 13,000. Procalcitonin is significantly elevated. Patient developed a rash to the upper chest area along with itching likely "red man" syndrome related to the Vancomycin which has been discontinued." Antibiotics: IV Azithromycin 500mg x1 on 11/30; IV Azactam 1gm Q8H 11/30-12/04; IV Rocephin 1000mg x1 on 11/30; IV Vancomycin 1750mg x1 on 11/30-12/02 IV Bolus: 0.9 NS x1 L bolus on 10/02 Is there an additional diagnosis that is clinically appropriate for this patient? [ x ] Sepsis, present on admission [ ] Other, please specify [ ] Unable to determine SIRS Criteria: 2 or more of the following may indicate SIRS Temperature < 96.8F (36C) or > 101.0F (38.3C) Heart Rate > 90 bpm Respiratory Rate > 20 breaths/min or PaCO2 < 32 mmHg White Blood Cell Count > 12,000 or < 4,000 cells/mm3 or > 10% bands MTDD
== END 2023-12-06 16:11 | DRG 871 ==
LOC: EC 11:33 → 3SCARD 14:42
PROVIDERS: ADMIT Internal Medicine; ATTEND Internal Medicine
DX: A41.89 Other specified sepsis (principal); I50.43 Acute on chronic combined systolic (congestive) and diastolic (congestive) heart failure; J15.69 Pneumonia due to other Gram-negative bacteria; J96.21 Acute and chronic respiratory failure with hypoxia; N17.9 Acute kidney failure, unspecified; I82.513 Chronic embolism and thrombosis of femoral vein, bilateral; L03.116 Cellulitis of left lower limb; L03.115 Cellulitis of right lower limb; I48.21 Permanent atrial fibrillation; F33.9 Major depressive disorder, recurrent, unspecified; N39.0 Urinary tract infection, site not specified; Z68.41 Body mass index [BMI] 40.0-44.9, adult; I42.9 Cardiomyopathy, unspecified; I11.0 Hypertensive heart disease with heart failure; I27.21 Secondary pulmonary arterial hypertension; D63.8 Anemia in other chronic diseases classified elsewhere; J39.8 Other specified diseases of upper respiratory tract; E66.01 Morbid (severe) obesity due to excess calories; E11.65 Type 2 diabetes mellitus with hyperglycemia; I70.0 Atherosclerosis of aorta; I08.3 Combined rheumatic disorders of mitral, aortic and tricuspid valves; T50.2X5A Adverse effect of carbonic-anhydrase inhibitors, benzothiadiazides and other diuretics, initial encounter; Z79.4 Long term (current) use of insulin; Z99.81 Dependence on supplemental oxygen; Z95.828 Presence of other vascular implants and grafts; Z79.01 Long term (current) use of anticoagulants; Z68.36 Body mass index [BMI] 36.0-36.9, adult; T36.8X5A Adverse effect of other systemic antibiotics, initial encounter; T36.1X5A Adverse effect of cephalosporins and other beta-lactam antibiotics, initial encounter; E78.5 Hyperlipidemia, unspecified; I95.1 Orthostatic hypotension; I87.2 Venous insufficiency (chronic) (peripheral); M21.372 Foot drop, left foot; M21.371 Foot drop, right foot; N28.89 Other specified disorders of kidney and ureter; Z96.653 Presence of artificial knee joint, bilateral; Z96.612 Presence of left artificial shoulder joint; L27.0 Generalized skin eruption due to drugs and medicaments taken internally; M19.90 Unspecified osteoarthritis, unspecified site; K21.9 Gastro-esophageal reflux disease without esophagitis; K44.9 Diaphragmatic hernia without obstruction or gangrene; K22.89 Other specified disease of esophagus; K22.4 Dyskinesia of esophagus; Z87.39 Personal history of other diseases of the musculoskeletal system and connective tissue; Z91.119 Patient's noncompliance with dietary regimen due to unspecified reason; Z11.52 Encounter for screening for COVID-19; Z79.84 Long term (current) use of oral hypoglycemic drugs; Z79.899 Other long term (current) drug therapy; Z79.85 Long-term (current) use of injectable non-insulin antidiabetic drugs; Z88.0 Allergy status to penicillin; Z88.1 Allergy status to other antibiotic agents; Z86.711 Personal history of pulmonary embolism; Z86.14 Personal history of Methicillin resistant Staphylococcus aureus infection; Z74.01 Bed confinement status; Z91.81 History of falling; Z87.19 Personal history of other diseases of the digestive system; Z99.3 Dependence on wheelchair
CPT/HCPCS: 36415; 71046; 71275; 80053; 80202; 81001; 83605; 83735; 83880; 84145; 84484; 85025; 85027; 85379; 85610; 85730; 86738; 87040; 87449; 87636; 93005; 93306; 93970; 94640; 94760; 96365; 96375; 99285

== ENCOUNTER 2023-12-11 03:21 | Inpatient (IN) | payer MEDICARE, OTHER ==
--- NOTE | 2023-12-11 04:22 | ED ---
General Adult HPI - General Chief complaint: Shortness of Breath Stated complaint: Shortness of breath Time Seen by Provider: 12/11/23 03:25 Source: patient, EMS Mode of arrival: EMS Limitations: physical limitation - History of Present Illness Initial comments: Dictation was produced using [employer] dictation software. please excuse any grammatical, word or spelling errors. Chief Complaint: 88-year-old female presents emergency department for cough History of Present Illness: 88-year-old female presents emergency department for cough. Patient was just admitted to the hospital several days ago she was here for almost a week for treatment of cough shortness of breath. She is tested positive for chronic virus recently. Patient states she is mildly short of breath with a nonproductive cough. Patient brought here by EMS from [facility]. Patient denies any chest pain. The ROS documented in this emergency department record has been reviewed and confirmed by me. Those systems with pertinent positive or negative responses have been documented in the HPI. All other systems are other negative and/or noncontributory. - Related Data Home Medications Medication Instructions Recorded Confirmed Simvastatin [Zocor] 10 mg PO HS 08/25/17 11/30/23 Acetaminophen [Tylenol] 650 mg PO Q4H PRN 11/30/23 11/30/23 Ascorbic Acid [Vitamin C] 500 mg PO DAILY@0800 11/30/23 11/30/23 Cholecalciferol [Vitamin D3 (25 75 mcg PO DAILY 11/30/23 11/30/23 Mcg = 1000 Iu)] Magnesium Oxide [Mag-Ox] 250 mg PO BID@0800,1600 11/30/23 11/30/23 Melatonin 3 mg PO HS 11/30/23 11/30/23 Metoclopramide HCl [Reglan] 5 mg PO AC-TID 11/30/23 11/30/23 Metoprolol Tartrate [Lopressor] 25 mg PO BID@0800,1600 11/30/23 11/30/23 Ondansetron [Zofran] 4 mg PO Q6H PRN 11/30/23 11/30/23 Sennosides/Docusate Sodium [Senna 2 tab PO HS 11/30/23 11/30/23 Plus 8.6-50 mg Tablet] guaiFENesin [guaiFENesin Oral 200 mg PO Q4H PRN 11/30/23 11/30/23 Solution] Previous Rx's Medication Instructions Recorded Apixaban [Eliquis] 2.5 mg PO BID@0800,1600 tab 12/06/23 Budesonide [Pulmicort] 1 mg INHALATION RT-BID 14 Days ml 12/06/23 Bumetanide [BUMEX] 1 mg PO DAILY tab 12/06/23 Dapagliflozin Propanediol [Farxiga] 5 mg PO DAILY@0800 tab 12/06/23 Dulaglutide [Trulicity] 1.5 mg SQ FR 12/06/23 INSULIN ASPART (NovoLOG) [NovoLOG 0 unit SQ ACHS each 12/06/23 (formulary)] Ipratropium-Albuterol Nebulize 3 ml INHALATION RT-QID each 12/06/23 [Duoneb 0.5 mg-3 mg/3 ml Soln] Lactulose [Cephulac] 20 gm PO BID ml 12/06/23 Pantoprazole [Protonix] 40 mg PO AC-BRKFST tab 12/06/23 Potassium Chloride ER [K-Dur 20] 20 meq PO DAILY #0 tab 12/06/23 Triamcinolone 0.1% Cream [Kenalog 1 applic TOPICAL BID each 12/06/23 0.1% Cream] diphenhydrAMINE [Benadryl] 25 mg PO TID PRN cap 12/06/23 Allergies Allergy/AdvReac Type Severity Reaction Status Date / Time Penicillins Allergy Rash/Hives Verified 11/30/23 12:55 azithromycin AdvReac Dyspnea & Verified 11/30/23 12:55 nausea ciprofloxacin [From Cipro] AdvReac Dyspnea & Verified 11/30/23 12:55 nausea Review of Systems ROS Statement: Those systems with pertinent positive or pertinent negative responses have been documented in the HPI. ROS Other: All systems not noted in ROS Statement are negative. 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 lt leg gives out wears brace History of Any Multi-Drug Resistant Organisms: MRSA Date of last positivie culture/infection: 01/22/22 MDRO Source:: Left Leg Past Surgical History: Back Surgery, Breast Surgery, Cholecystectomy, Joint Replacement, Orthopedic Surgery Additional Past Surgical History / Comment(s): thelma knee replac; L shoulder replac.; carpel tunnel vaginal duct cyst; benign breast surg; cataracts; retinal repair left eye. BAck surgery, hernia repair Past Anesthesia/Blood Transfusion Reactions: No Reported Reaction Past Psychological History: Depression Smoking Status: Never smoker Past Alcohol Use History: None Reported Past Drug Use History: None Reported - Past Family History Father Family Medical History: Deep Vein Thrombosis (DVT) Son(s) Family Medical History: Deep Vein Thrombosis (DVT) Mother Family Medical History: Cancer Additional Family Medical History / Comment(s): Mother had cancer in her back. Daughter(s) Family Medical History: Blood Disorder Additional Family Medical History / Comment(s): Daughter has MTHFR factor and pt's grandson has lyme factor V and grand daughter has MTHFR. General Exam - General Exam Comments Initial Comments: PHYSICAL EXAM: General Impression: Alert and oriented x3, not in acute distress HEENT: Normocephalic atraumatic, extra-ocular movements intact, pupils equal and reactive to light bilaterally, mucous membranes moist. Cardiovascular: Heart regular rate and rhythm Chest: Able to complete full sentences, no retractions, no tachypnea Abdomen: abdomen soft, non-tender, non-distended, no organomegaly Musculoskeletal: Pulses present and equal in all extremities, no peripheral edema Motor: no focal deficits noted Neurological: CN II-XII grossly intact, no focal motor or sensory deficits noted Skin: Intact with no visualized rashes Psych: Normal affect and mood Limitations: physical limitation Course Vital Signs 12/11/23 12/11/23 12/11/23 03:25 03:57 04:30 Temperature 97.7 F Pulse Rate 92 84 Respiratory 22 22 18 Rate Blood Pressure 109/63 106/62 O2 Sat by Pulse 93 L 100 Oximetry 12/11/23 12/11/23 05:05 05:30 Temperature Pulse Rate 81 83 Respiratory 26 H 28 H Rate Blood Pressure 110/67 92/54 O2 Sat by Pulse 99 100 Oximetry Medical Decision Making - Medical Decision Making Was pt. sent in by a medical professional or institution (, PA, STUDIO ARTIST, urgent care, hospital, or [facility]pc...) When possible be specific @ -No Did you speak to anyone other than the patient for history (EMS, parent, family, police, friend...)? What history was obtained from this source @ -No Did you review nursing and triage notes (agree or disagree)? Why? @ -I reviewed and agree with nursing and triage notes Were old charts reviewed (outside hosp., previous admission, EMS record, old EKG, old radiological studies, urgent care reports/EKG's, [facility] records)? Report findings @ -No old charts were reviewed Differential Diagnosis (chest pain, altered mental status, abdominal pain women, abdominal pain men, vaginal bleeding, musculoskeletal, weakness, fever, dyspnea, syncope, headache, dizziness, GI bleed, back pain, seizure, CVA, palpatations, mental health)? @ -Differential Dyspnea: Coronary syndrome, arrhythmia, tamponade, asthma, COPD, pulmonary embolism, pneumonia, pneumothorax, pulmonary effusion, anaphylaxis, diabetic ketoacidosis, flailed chest, pulmonary contusion, diaphragmatic rupture, anemia, neuromuscular, this is not meant to be an all-inclusive list. EKG interpreted by me (3pts min.). @ -Ventricular rate 83, A. fib, QRS 87, QTc 432 X-rays interpreted by me (1pt min.). @ -Chest x-ray Shows no acute processes CT interpreted by me (1pt min.). @ -None done U/S interpreted by me (1pt. min.). @ -None done What testing was considered but not performed or refused? (CT, X-rays, U/S, labs)? Why? @ -None What meds were considered but not given or refused? Why? @ -None Did you discuss the management of the patient with other professionals (professionals i.e. , PA, STUDIO ARTIST, lab, RT, psych nurse, social media marketing analyst, criminal justice lawyer, teacher, electronic warfare officer, protective services case worker)? Give summary @ -Custom Dr. Liu for observation admission Was smoking cessation discussed for >3mins.? @ -No Was critical care preformed (if so, how long)? @ -No Were there social determinants of health that impacted care today? How? (Homelessness, low income, unemployed, alcoholism, drug addiction, transportation, low edu. Level, literacy, decrease access to med. care, detention, rehab)? @ -No Was there de-escalation of care discussed even if they declined (Discuss DNR or withdrawal of care, Hospice)? DNR status @ -No What co-morbidities impacted this encounter? (DM, HTN, Smoking, COPD, CAD, Cancer, CVA, ARF, Chemo, Hep., AIDS, mental health diagnosis, sleep apnea, morbid obesity)? @ -None Was patient admitted / discharged? Hospital course, mention meds given and route, prescriptions, significant lab abnormalities, going to OR and other pertinent info. @ -[id number] female's transfer from the [facility] to the ER for concerns of coughing. Vital signs shows a borderline blood pressure 100/63. Rhythm is reported mild hypertension at the [facility]. Patient did not appear to be very dyspneic at bedside. Laboratory evaluation stable. Patient be admitted observation for further monitoring. Undiagnosed new problem with uncertain prognosis? @ -No Drug Therapy requiring intensive monitoring for toxicity (Heparin, Nitro, Insulin, Cardizem)? @ -No Were any procedures done? @ -No Diagnosis/symptom? Acute, or Chronic, or Acute on Chronic? Uncomplicated (without systemic symptoms) or Complicated (systemic symptoms)? @ -Cough Side effects of treatment? @ -No Exacerbation, Progression, or Severe Exacerbation? @ -No Poses a threat to life or bodily function? How? (Chest pain, [place], PR, pneumonia, PE, COPD, DKA, ARF, appy, cholecystitis, CVA, Diverticulitis, Homicidal, Suicidal, threat to staff... and all critical care pts) @ -No - Lab Data Result diagrams: 12/11/23 03:47 12/11/23 03:47 Lab Results 12/11/23 12/11/23 Range/Units 03:47 03:47 WBC 6.7 (3.8-10.6) k/uL RBC 3.51 L (3.80-5.40) m/uL Hgb 9.9 L (11.4-16.0) gm/dL Hct 32.2 L (34.0-46.0) % MCV 91.6 (80.0-100.0) fL MCH 28.2 (25.0-35.0) pg MCHC 30.7 L (31.0-37.0) g/dL RDW 18.4 H (11.5-15.5) % Plt Count 234 (150-450) k/uL MPV 10.4 Neutrophils % 69 % Lymphocytes % 18 % Monocytes % 8 % Eosinophils % 2 % Basophils % 1 % Neutrophils # 4.6 (1.3-7.7) k/uL Lymphocytes # 1.2 (1.0-4.8) k/uL Monocytes # 0.5 (0-1.0) k/uL Eosinophils # 0.1 (0-0.7) k/uL Basophils # 0.0 (0-0.2) k/uL Hypochromasia Marked Poikilocytosis Slight Anisocytosis Slight Sodium 138 (137-145) mmol/L Potassium 4.8 (3.5-5.1) mmol/L Chloride 107 (98-107) mmol/L Carbon Dioxide 24 (22-30) mmol/L Anion Gap 7 mmol/L BUN 31 H (7-17) mg/dL Creatinine 1.38 H (0.52-1.04) mg/dL Est GFR (CKD-EPI)AfAm 40 (>60 ml/min/1.73 sqM) Est GFR (CKD-EPI)NonAf 35 (>60 ml/min/1.73 sqM) Glucose 126 H (74-99) mg/dL Calcium 8.3 L (8.4-10.2) mg/dL Disposition Clinical Impression: Cough Disposition: ADMITTED IP TO THIS HOSP Condition: Fair Referrals: Kinjal Liu MD [Primary Care Provider] - 1-2 days Decision Time: 06:31
[2023-12-11 04:24] LABS: Anisocytosis Slight; Basophils % (A) 1 %; Eosinophils # (A) 0.1 k/uL (0-0.7); Eosinophils % (A) 2 %; HCT 32.2 % (34.0-46.0); HGB 9.9 gm/dL (11.4-16.0); Hypochromasia Marked; Lymphocytes # (A) 1.2 k/uL (1.0-4.8); Lymphocytes % (A) 18 %; MCH 28.2 pg (25.0-35.0); MCHC 30.7 g/dL (31.0-37.0); MCV 91.6 fL (80.0-100.0); Mean Platelet Volume 10.4; Monocytes # (A) 0.5 k/uL (0-1.0); Monocytes % (A) 8 %; Neutrophils # (A) 4.6 k/uL (1.3-7.7); Neutrophils % (A) 69 %; Platelet Count 234 k/uL (150-450); Poikilocytosis Slight; RBC 3.51 m/uL (3.80-5.40); RDW 18.4 % (11.5-15.5); WBC 6.7 k/uL (3.8-10.6)
[2023-12-11 04:32] LABS: African American GFR (CKD) 40 (>60 ml/min/1.73 sqM); Anion Gap 7 mmol/L; Blood Urea Nitrogen 31 mg/dL (7-17); Calcium 8.3 mg/dL (8.4-10.2); Carbon Dioxide 24 mmol/L (22-30); Chloride 107 mmol/L (98-107); Glucose 126 mg/dL (74-99); Non-African American GFR(CKD) 35 (>60 ml/min/1.73 sqM); Potassium 4.8 mmol/L (3.5-5.1); Sodium 138 mmol/L (137-145)
[2023-12-11] MEDS ORDERED: NALOXONE 0.4 MG/ML 1 ML VIAL IV PRN (06:26)
[2023-12-11] MEDS: SODIUM CHLORIDE 0.9% 1,000 ML IV STA (06:36)
[2023-12-11] MEDS: SODIUM CHLORIDE 0.9% 1,000 ML IV SCH (06:37)
--- NOTE | 2023-12-11 06:48 | XR ---
EXAM: XR Chest, 2 Views CLINICAL HISTORY: ITS.REASON XR Reason: cough TECHNIQUE: Frontal and lateral views of the chest. COMPARISON: X-ray dated 11/30/2023 FINDINGS: Lungs: Increase in opacification of the left mid to lower lung field and right costophrenic angle. Pleural space: No pneumothorax. Heart: Stable enlargement of the cardiac silhouette. Mediastinum: Unremarkable. Normal mediastinal contour. Bones/joints: Left shoulder arthroplasty is in place. Degenerative changes are seen within the right shoulder and spine. No acute fracture. Vasculature: Calcific the aorta. IMPRESSION: 1. Worsening left-sided lateral effusion and atelectasis with underlying infectious process is not excluded. 2. Right lower lobe pneumonia.
--- NOTE | 2023-12-11 12:07 | P.HPIM ---
History of Present Illness H&P Date: 12/11/23 Chief Complaint: cough/SOB HISTORY OF PRESENT ILLNESS This is an 88-year-old female patient of mine, with past medical history of PE and DVT, morbid obesity, diabetes mellitus type 2, hypertension, hyperlipidemia, history of spinal stenosis status post surgery in [place], history of small bowel obstruction secondary to incarcerated umbilical hernia status post repair of the hernia with resolution of the bowel obstruction, history of atrial fibrillation, history of chronic diastolic heart failure with significant for hypertension and significant venous hypertension both lower extremities and significant edema, patient patient has been almost in a sedentary lifestyle noncompliant with her diet sitting in her wheelchair most of the day, has been on chronic diuretic use , patient was recently discharged from [facility] after she was admitted for acute on chronic systolic heart failure and she was seen by Cardiology and pulmonary and her Echocardiogram showed reduced EF 40-45% with severe Aortic stenosis and mild MR and Aortic aneurysm 4.1 cm, she was discharge 12/06/2021 and she was seen by me yesrterday at [facility] where she was short of breath withy increased weight gain she was discharged on Bumex 1 mg po daily that was increased to bid without any help , so she was sent out to [facility] for acute on chronic systolic heart failure REVIEW OF SYSTEMS Constitutional: Reports no fever or chills, no night sweats. positive for weight change. Reports weakness, Reports fatigue, no lethargy, no daytime sleepiness. HEENT: No headache. No blurred vision or double vision, no loss of vision. No dizziness. No nasal drainage or congestion. No epistaxis. No sore throat, hard of hearing Lungs: positive for shortness of breath, positive for dry cough, no sputum production. positive for wheezing. Cardiovascular: No chest pain, positive for lower extremity edema, positive for palpitations, no paroxysmal nocturnal dyspnea. No orthopnea. No lightheadedness or dizziness. No syncopal episodes. Abdominal: No abdominal pain. positive for nausea, no vomiting. No diarrhea. No constipation. No bloody or tarry stools. Reports loss of appetite. Genitourinary: No dysuria, increased frequency, urgency. No urinary retention, positive for urinary incontinence Musculoskeletal: No myalgias. Reports muscle weakness, Reports gait dysfunction, Reports falls. positive for back pain. No neck pain. Integumentary: Reports wound to the left big toe with significant tissue edema, reports lower extremity redness, there is denuded ulcer to the left big toe Neurologic: No aphasia. No facial droop. No change in mentation. No head injury. No headache. No paralysis. No paresthesia. Psychiatric: positive for depression. No anxiety. No mood swings. Endocrine: positive for abnormal blood sugars. positive for weight change. 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 Gastroesophageal reflux disease Paroxysmal atrial fibrillation Chronic diastolic heart failure Valvular heart disease with severe tricuspid regurgitation, aortic stenosis, mild mitral regurgitation Severe pulmonary hypertension Hypertension Hyperlipidemia Spinal stenosis Morbid obesity Chronic kidney disease stage II Recurrent depression Small bowel obstruction SURGICAL HISTORY Cholecystectomy Bilateral knee replacement Left shoulder replacement Carpal tunnel release Vaginal duct cyst Benign breast surgery Cataract removal and intraocular lens implants Retinal repair left eye Umbilical Hernia repair 2019 Lumbar decompression 2019 SOCIAL HISTORY Patient is a lifelong nonsmoker, no alcohol use, no marijuana or illicit drug use. Patient lives at home with her . FAMILY HISTORY Father at age 101 from natural causes. Mother at age 91 from CVA. Patient has 2 brothers living. She also has 1 son and 2 daughters with no major medical problems. PHYSICAL EXAMINATION Gen: This is an 88-year-old female, sitting up in bed in minimal respiratory distress. HEENT: Head is atraumatic, normocephalic. Pupils equal, round. Sclerae is anicteric, mucous membranes of the mouth are somewhat dry, there is minimal thrush. NECK: Supple. No JVD. No lymphadenopathy. No thyromegaly. LUNGS: Decreased breath sounds at the bases, few rhonchi, minimal expiratory wheezes, no chest wall tenderness, no intercostal retractions. HEART: first heart sound is depressed, second heart sound is normal, irregularly irregular, there is systolic ejection murmur 2/6 located at the left sternal border. ABDOMEN: morbidly obese abdomen, soft nontender nondistended, positive bowel sounds. EXTREMITIES: 2+ bilateral pitting edema to the lower extremities, chronic stasis dermatitis, there is bilateral foot drop. NEUROLOGICAL: Patient is awake, alert and oriented x3. Cranial nerves 2 through 12 are grossly intact significant weakness to both lower extremity his right more than left, bilateral foot drop ASSESSMENT AND PLAN 1. Acute Systolic heart failure. Start the patient Lasix 40 mg IV push every 12 hours, continue patient on metoprolol 25 mg orally twice daily , Echocardio gram was done last week showed LVF 40 % with severe , we will continue with Farxiga 10 mg po daily 2. Left lower lobe pneumonia. Resolved 3. Atrial fibrillation . Continue metoprolol 25 mg orally twice every day, continue patient on Eliquis 2.5 mg orally twice every day. 4. Anemia of chronic diseases. Stable at this time. 5. 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 Continue eliquis 5 mg twice daily. Patient recently underwent Malik filter on November 2019 prior to laminectomy surgery. 6. Valvular heart disease with severe tricuspid regurgitation, severe Aortic stenosis she will need TAVR , mild mitral regurgitation. 7. Severe pulmonary hypertension with RVSP 60 mmHg. continue patient on Metoprolol 25 mg orally bid continue patient on Lasix 40 mg IVP twice every day. 8. Hypertension and hypertensive cardiovascular disease. Continue patient on Metoprolol 25 mg po bid, we will continue to monitor BP very closely 9. Hyperlipidemia. Continue atorvastatin 10 mg at bedtime. 10. Diabetes mellitus type 2. Continue patient on Farxiga 10 mg po daily, Trulicity 1.5 mg SC q week , along with SSI. 11. Spinal stenosis status post laminectomy, with bilateral foot drop 12. Recurrent depression. Continue patient on Effexor 75 mg orally once every day. 13. Gastroesophageal reflux disease and GI prophylaxis. Protonix 40 mg po vero y. 14. DVT prophylaxis. Eliquis 2.5 mg orally twice every day. 15. Admit to inpatient. Estimated length of stay 2 midnights. 16. Full code. 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 lt leg gives out wears brace History of Any Multi-Drug Resistant Organisms: MRSA Date of last positivie culture/infection: 01/22/22 MDRO Source:: Left Leg Past Surgical History: Back Surgery, Breast Surgery, Cholecystectomy, Joint Replacement, Orthopedic Surgery Additional Past Surgical History / Comment(s): thelma knee replac; L shoulder replac.; carpel tunnel vaginal duct cyst; benign breast surg; cataracts; retinal repair left eye. BAck surgery, hernia repair Past Anesthesia/Blood Transfusion Reactions: No Reported Reaction Past Psychological History: Depression Smoking Status: Never smoker Past Alcohol Use History: None Reported Past Drug Use History: None Reported - Past Family History Father Family Medical History: Deep Vein Thrombosis (DVT) Son(s) Family Medical History: Deep Vein Thrombosis (DVT) Mother Family Medical History: Cancer Additional Family Medical History / Comment(s): Mother had cancer in her back. Daughter(s) Family Medical History: Blood Disorder Additional Family Medical History / Comment(s): Daughter has MTHFR factor and pt's grandson has lyme factor V and grand daughter has MTHFR. Medications and Allergies Home Medications Medication Instructions Recorded Confirmed Type Simvastatin [Zocor] 10 mg PO HS 08/25/17 11/30/23 History Acetaminophen [Tylenol] 650 mg PO Q4H PRN 11/30/23 11/30/23 History Ascorbic Acid [Vitamin C] 500 mg PO DAILY@0800 11/30/23 11/30/23 History Cholecalciferol [Vitamin D3 (25 75 mcg PO DAILY 11/30/23 11/30/23 History Mcg = 1000 Iu)] Magnesium Oxide [Mag-Ox] 250 mg PO BID@0800,1600 11/30/23 11/30/23 History Melatonin 3 mg PO HS 11/30/23 11/30/23 History Metoclopramide HCl [Reglan] 5 mg PO AC-TID 11/30/23 11/30/23 History Metoprolol Tartrate [Lopressor] 25 mg PO BID@0800,1600 11/30/23 11/30/23 History Ondansetron [Zofran] 4 mg PO Q6H PRN 11/30/23 11/30/23 History Sennosides/Docusate Sodium [Senna 2 tab PO HS 11/30/23 11/30/23 History Plus 8.6-50 mg Tablet] guaiFENesin [guaiFENesin Oral 200 mg PO Q4H PRN 11/30/23 11/30/23 History Solution] Apixaban [Eliquis] 2.5 mg PO BID@0800,1600 tab 12/06/23 Rx Budesonide [Pulmicort] 1 mg INHALATION RT-BID 14 Days ml 12/06/23 Rx Bumetanide [BUMEX] 1 mg PO DAILY tab 12/06/23 Rx Dapagliflozin Propanediol [Farxiga] 5 mg PO DAILY@0800 tab 12/06/23 Rx Dulaglutide [Trulicity] 1.5 mg SQ FR 12/06/23 Rx INSULIN ASPART (NovoLOG) [NovoLOG 0 unit SQ ACHS each 12/06/23 Rx (formulary)] Ipratropium-Albuterol Nebulize 3 ml INHALATION RT-QID each 12/06/23 Rx [Duoneb 0.5 mg-3 mg/3 ml Soln] Lactulose [Cephulac] 20 gm PO BID ml 12/06/23 Rx Pantoprazole [Protonix] 40 mg PO AC-BRKFST tab 12/06/23 Rx Potassium Chloride ER [K-Dur 20] 20 meq PO DAILY #0 tab 12/06/23 Rx Triamcinolone 0.1% Cream [Kenalog 1 applic TOPICAL BID each 12/06/23 Rx 0.1% Cream] diphenhydrAMINE [Benadryl] 25 mg PO TID PRN cap 12/06/23 Rx Allergies Allergy/AdvReac Type Severity Reaction Status Date / Time Penicillins Allergy Rash/Hives Verified 11/30/23 12:55 azithromycin AdvReac Dyspnea & Verified 11/30/23 12:55 nausea ciprofloxacin [From Cipro] AdvReac Dyspnea & Verified 11/30/23 12:55 nausea Physical Exam Vitals: Vital Signs Temp Pulse Resp BP Pulse Ox 12/11/23 07:29 97.7 F 77 18 118/76 100 12/11/23 06:00 83 16 99/53 99 12/11/23 05:30 83 28 H 92/54 100 12/11/23 05:05 81 26 H 110/67 99 12/11/23 04:30 84 18 106/62 100 12/11/23 03:57 22 12/11/23 03:25 97.7 F 92 22 109/63 93 L Intake and Output 12/10/23 12/11/23 12/11/23 22:59 06:59 14:59 Other: Weight 140.614 kg Results CBC & Chem 7: 12/11/23 03:47 12/11/23 03:47 Labs: Abnormal Lab Results - Last 24 Hours (Table) 12/11/23 12/11/23 Range/Units 03:47 03:47 RBC 3.51 L (3.80-5.40) m/uL Hgb 9.9 L (11.4-16.0) gm/dL Hct 32.2 L (34.0-46.0) % MCHC 30.7 L (31.0-37.0) g/dL RDW 18.4 H (11.5-15.5) % BUN 31 H (7-17) mg/dL Creatinine 1.38 H (0.52-1.04) mg/dL Glucose 126 H (74-99) mg/dL Calcium 8.3 L (8.4-10.2) mg/dL
[2023-12-11] MEDS: LACTULOSE 20 GM/30 ML CUP PO SCH (12:46)
[2023-12-11] MEDS: CHOLECALCIFEROL 25 MCG (1000 IU) TABLET PO SCH (12:46)
[2023-12-11] MEDS: METOCLOPRAMIDE 5 MG TAB PO SCH (12:46)
[2023-12-11] MEDS: FUROSEMIDE 10 MG/ML 4 ML VIAL IV SCH (12:46)
[2023-12-11] MEDS: POTASSIUM CHLORIDE ER 20 MEQ TAB.ER PO SCH (12:46)
[2023-12-11] MEDS: TRIAMCINOLONE 0.1% CREAM 80 GM TUBE TOPICAL SCH (12:47)
[2023-12-11] MEDS: IPRATROPIUM-ALBUTEROL 3 ML NEB INHALATION SCH (12:48)
--- NOTE | 2023-12-11 14:22 | P.CNPUL ---
History of Present Illness Consult date: 12/11/23 Reason for consult: dyspnea, cough History of present illness: This 88-year-old female patient is being readmitted to the hospital due to concerns of some respiratory distress. While at the longterm, the patient was being moved around and she felt slightly more short of breath and for that reason she was brought into the hospital for further investigation. She has a long list of medical problems and comorbidities. She is known to me from previous admissions. She denies having any chest pain. No altered mentation. She has chronic edema lower extremities bilaterally and the patient has been taking diuretics on outpatient basis. Her mobility is limited. No altered mentation. I reviewed the chest x-ray of the chest that shows, thyromegaly and mild pulmonary vascular congestion. She has been morbidly obese with a body mass index of 51.6. She has previous history of DVT and pulmonary embolism. She has diabetes mellitus type 2, hypertension hyperlipidemia and spinal stenosis along with chronic A. fib and diastolic heart failure and chronic venous stasis edema lower extremities bilaterally. She was taking Bumex on outp atient basis 1 mg daily basis. No fever. No altered mentation. The echoes at 6.7 with a hemoglobin of 9.9. BUN is at 30 with creatinine 1.38 and her renal function stable since her discharge from the hospital. Sodium level is at 138. Review of Systems CONSTITUTIONAL: recent significant weight gain and fluid overload and the patient is quite debilitated, nonmobile, longterm resident. EYES: Denies change in vision. EARS, NOSE, MOUTH, THROAT: Denies headaches, denies sore throat. CARDIOVASCULAR: Denies chest pain, palpitations or syncopal episodes. RESPIRATORY: See HPI GASTROINTESTINAL: Denies change in appetite, abdominal pain, nausea and vomiting, or diarrhea GENITOURINARY: Denies hematuria, denies infections. MUSKULOSKELETAL: Denies pain, admits chronic lower extremity swelling. INTEGUMENTARY: Denies rash, denies eczema. Admits history of left leg/foot infection NEUROLOGICAL: Denies recent memory loss, no recent seizure activity. PSYCHIATRIC: Denies anxiety, denies depression. HEMATOLOGIC/LYMPHATIC: Denies anemia, denies enlarged lymph node Past Medical History Past Medical History: Blood Disorder, Diabetes Mellitus, Deep Vein Thrombosis (DVT), GERD/Reflux, Hyperlipidemia, Hypertension, Osteoarthritis (OA), Pneumonia, Pulmonary Embolus (PE), Renal Disease Additional Past Medical History / Comment(s): Hx of PE & DVT, mass on right kidn ey, cellulitis BLE, falls at home, spinal stenosis status post laminectomy. lt leg gives out wears brace History of Any Multi-Drug Resistant Organisms: MRSA Date of last positivie culture/infection: 01/22/22 MDRO Source:: Left Leg Past Surgical History: Back Surgery, Breast Surgery, Cholecystectomy, Joint Replacement, Orthopedic Surgery Additional Past Surgical History / Comment(s): thelma knee replac; L shoulder replac.; carpel tunnel vaginal duct cyst; benign breast surg; cataracts; retinal repair left eye. BAck surgery, hernia repair Past Anesthesia/Blood Transfusion Reactions: No Reported Reaction Past Psychological History: Depression Smoking Status: Never smoker Past Alcohol Use History: None Reported Past Drug Use History: None Reported - Past Family History Father Family Medical History: Deep Vein Thrombosis (DVT) Son(s) Family Medical History: Deep Vein Thrombosis (DVT) Mother Family Medical History: Cancer Additional Family Medical History / Comment(s): Mother had cancer in her back. Daughter(s) Family Medical History: Blood Disorder Additional Family Medical History / Comment(s): Daughter has MTHFR factor and pt's grandson has lyme factor V and grand daughter has MTHFR. Medications and Allergies Home Medications Medication Instructions Recorded Confirmed Type Simvastatin [Zocor] 10 mg PO HS 08/25/17 12/11/23 History Acetaminophen [Tylenol] 650 mg PO Q4H PRN 11/30/23 12/11/23 History Ascorbic Acid [Vitamin C] 500 mg PO DAILY@0800 11/30/23 12/11/23 History Cholecalciferol [Vitamin D3 (25 25 mcg PO DAILY 11/30/23 12/11/23 History Mcg = 1000 Iu)] Melatonin 3 mg PO HS 11/30/23 12/11/23 History Metoclopramide HCl [Reglan] 5 mg PO AC-TID 11/30/23 12/11/23 History Metoprolol Tartrate [Lopressor] 25 mg PO BID@0800,1600 11/30/23 12/11/23 History Ondansetron [Zofran] 4 mg PO Q6H PRN 11/30/23 12/11/23 History Sennosides/Docusate Sodium [Senna 2 tab PO HS 11/30/23 12/11/23 History Plus 8.6-50 mg Tablet] guaiFENesin [guaiFENesin Oral 200 mg PO Q4H PRN 11/30/23 12/11/23 History Solution] Apixaban [Eliquis] 2.5 mg PO BID@0800,1600 tab 12/06/23 12/11/23 Rx Budesonide [Pulmicort] 1 mg INHALATION RT-BID 14 Days ml 12/06/23 12/11/23 Rx Dapagliflozin Propanediol [Farxiga] 5 mg PO DAILY@0800 tab 12/06/23 12/11/23 Rx Ipratropium-Albuterol Nebulize 3 ml INHALATION RT-QID each 12/06/23 12/11/23 Rx [Duoneb 0.5 mg-3 mg/3 ml Soln] Lactulose [Cephulac] 20 gm PO BID ml 12/06/23 12/11/23 Rx Potassium Chloride ER [K-Dur 20] 20 meq PO DAILY #0 tab 12/06/23 12/11/23 Rx Triamcinolone 0.1% Cream [Kenalog 1 applic TOPICAL BID each 12/06/23 12/11/23 Rx 0.1% Cream] diphenhydrAMINE [Benadryl] 25 mg PO TID PRN cap 12/06/23 12/11/23 Rx ALPRAZolam [Xanax] 0.25 mg PO BID PRN 12/11/23 12/11/23 History Bumetanide [Bumex] 1 mg PO BID 12/11/23 12/11/23 History Dulaglutide [Trulicity] 1.5 mg SQ FR 12/11/23 12/11/23 History Furosemide [Lasix] 80 mg PO BID 12/11/23 12/11/23 History Insulin Aspart [NovoLOG Flexpen] See Protocol SQ ACHS 12/11/23 12/11/23 History Magnesium Oxide [Mag-Ox] 400 mg PO BID 12/11/23 12/11/23 History Omeprazole 20 mg PO DAILY 12/11/23 12/11/23 History metFORMIN HCL [Glucophage] 1,000 mg PO BID 12/11/23 12/11/23 History Allergies Allergy/AdvReac Type Severity Reaction Status Date / Time Penicillins Allergy Rash/Hives Verified 12/11/23 11:53 azithromycin AdvReac Dyspnea & Verified 12/11/23 11:53 nausea ciprofloxacin [From Cipro] AdvReac Dyspnea & Verified 12/11/23 11:53 nausea Physical Exam Vitals: Vital Signs Temp Pulse Resp BP Pulse Ox 12/11/23 10:49 92 20 108/74 98 12/11/23 07:29 97.7 F 77 18 118/76 100 12/11/23 06:00 83 16 99/53 99 12/11/23 05:30 83 28 H 92/54 100 12/11/23 05:05 81 26 H 110/67 99 12/11/23 04:30 84 18 106/62 100 12/11/23 03:57 22 12/11/23 03:25 97.7 F 92 22 109/63 93 L Intake and Output 12/10/23 12/11/23 12/11/23 22:59 06:59 14:59 Other: Weight 140.614 kg GENERAL EXAM: Alert, 88-year-old female, resting in bed, on 2 L nasal cannula, in no apparent distress. HEAD: Normocephalic and atraumatic EYES: Normal reaction of pupils, equal size. NOSE: Clear with pink turbinates. THROAT: No erythema or exudates. NECK: No masses, no JVD. CHEST: No chest wall deformity. LUNGS: Equal air entry with end expiratory wheeze. CVS: S1 and S2 normal with no audible murmur, regular rhythm. No extra heart sounds ABDOMEN: Obese abdomen, no hepatosplenomegaly, active bowel sounds, no guarding or rigidity. SPINE: No scoliosis or deformity SKIN: Left lower extremity erythema and edema CENTRAL NERVOUS SYSTEM: No focal deficits, tone is normal in all 4 extremities. EXTREMITIES: Bilateral lower extremity edema, left greater than right. No clubbing, or cyanosis. Peripheral pulses are intact. Results - Laboratory Findings CBC and BMP: 12/11/23 03:47 12/11/23 03:47 Abnormal lab findings: Abnormal Labs 12/11/23 12/11/23 03:47 03:47 RBC 3.51 L Hgb 9.9 L Hct 32.2 L MCHC 30.7 L RDW 18.4 H BUN 31 H Creatinine 1.38 H Glucose 126 H Calcium 8.3 L - Diagnostic Findings Chest x-ray: image reviewed Assessment and Plan Plan: Chronic lower extremity edema with signs of chronic fluid overload, maintained on Bumex on outpatient basis. Chronic dyspnea without any clear indication that there has been any significant respiratory decompensation since his discharge back to longterm chronic hypoxic respiratory failure, currently on 2 L of oxygen by nasal cannula, likely in the base of CHF. No clear indication for pneumonia. No evidence of pulm embolism. Systolic heart failure with an ejection fraction of 40 to 45%, severe pulm hypertension, moderate to severe degree of aortic stenosis Moderate degree of aortic stenosis as evident on the echocardiogram Chronic lower extremity edema Diabetes mellitus type 2 Chronic kidney disease, stage III Recent infection with COVID-19 infection PCR was negative at time of admission History of osteomyelitis of the left toe Diabetes mellitus type 2 Previous history of DVT and pulmonary embolism, maintained on anticoagulation with Eliquis Paroxysmal A-fib with a controlled rate and currently on anticoagulants with Eliquis Hyperlipidemia Hypertension Obesity Spinal stenosis and the patient has foot drop and she is unable to him later this point in time Plan Titrate oxygen flow to maintain saturation above 90%, currently on 2 L Suggest optimizing volume status by Lasix 40 mg every 12 hours Monitor electrolytes Monitor renal function She has a Guajardo catheter in place. No signs of any urinary tract infection this point in time. Continue anticoagulation with Eliquis Resume all medications Monitor blood sugar Full CODE STATUS and will continue to follow
[2023-12-11] MEDS: INSULIN ASPART (NovoLOG) 100 UNIT/ML VIAL SQ SCH (15:00)
--- NOTE | 2023-12-11 16:26 | P.CRDCN ---
History of Present Illness Consult date: 12/11/23 History of present illness: HISTORY OF PRESENTING ILLNESS 88-year-old female was recently admitted to the hospital because of congestive heart failure and respiratory distress. She was managed with IV antibiotics and was discharged home on Bumex 3 days ago. In [place] [facility] patient started having increased cough and increased shortness of breath due to which she was sent to the hospital again. Patient has chronic lower extremity edema. Morbidly obese, BMI 51, previous history of DVT and pulmonary embolism. Type 2 diabetes, hypertension, hyperlipidemia chronic atrial fibrillation and diastolic heart failure. BUN 31, creatinine 1.3, hemoglobin 9.9 REVIEW OF SYSTEMS 14 point review of system is negative except what is mentioned above in HPI. PHYSICAL EXAMINATION Vital signs reviewed. Neck: Thick neck difficult to assess as she has elevated JVD Lungs: Reduce inspiratory effort and mild crackles in lung candelaria Cardiac: Irregular pulse,S1-S2, no significant murmurs. Abdomen: Soft nontender, . Extremities: 3+ pitting edema lower extremity which is chronic. Neuro: Alert, oritented, ASSESSMENT Acute on chronic HFREF exacerbation . EF 40-45% moderate LVH, moderate to severe aortic stenosis Increased cough and increased shortness of breath Chronic lower extremity edema Type II Diabetes CKD stage III Recent COVID-19 infection. Post viral cough History of DVT and pulmonary embolism on anti-cognition Chronic atrial fibrillation Hypertension Dyslipidemia Morbid obesity PLAN Left upper extremity swollen, obtain Doppler Continue Eliquis. She is on 2.5 mg. This may be because of age and borderline creatinine. Because of her BMI would recommended to be 5 mg. Reevaluate tomorrow Lasix IV 40 mg twice a day. Transition to by mouth Bumex at the time of discharge 1 mg twice a day. Metoprolol 25 mg twice a day Start Aldactone 12.5 mg daily We will intensify heart failure medication further as tolerated. May consider adding metolazone tomorrow AM with lasix. farxiga 5 mg, consider increasing to 10 mg at the time of discharge Past Medical History Past Medical History: Blood Disorder, Diabetes Mellitus, Deep Vein Thrombosis (DVT), GERD/Reflux, Hyperlipidemia, Hypertension, Osteoarthritis (OA), Pneumonia, Pulmonary Embolus (PE), Renal Disease Additional Past Medical History / Comment(s): Hx of PE & DVT, mass on right kidney, cellulitis BLE, falls at home, spinal stenosis status post laminectomy. lt leg gives out wears brace History of Any Multi-Drug Resistant Organisms: MRSA Date of last positivie culture/infection: 01/22/22 MDRO Source:: Left Leg Past Surgical History: Back Surgery, Breast Surgery, Cholecystectomy, Joint Replacement, Orthopedic Surgery Additional Past Surgical History / Comment(s): thelma knee replac; L shoulder replac.; carpel tunnel vaginal duct cyst; benign breast surg; cataracts; retin al repair left eye. BAck surgery, hernia repair Past Anesthesia/Blood Transfusion Reactions: No Reported Reaction Past Psychological History: Depression Additional Psychological History / Comment(s): October 2019. Smoking Status: Never smoker Past Alcohol Use History: None Reported Past Drug Use History: None Reported - Past Family History Father Family Medical History: Deep Vein Thrombosis (DVT) Son(s) Family Medical History: Deep Vein Thrombosis (DVT) Mother Family Medical History: Cancer Additional Family Medical History / Comment(s): Mother had cancer in her back. Daughter(s) Family Medical History: Blood Disorder Additional Family Medical History / Comment(s): Daughter has MTHFR factor and pt's grandson has lyme factor V and grand daughter has MTHFR. Medications and Allergies Home Medications Medication Instructions Recorded Confirmed Type Simvastatin [Zocor] 10 mg PO HS 08/25/17 12/11/23 History Acetaminophen [Tylenol] 650 mg PO Q4H PRN 11/30/23 12/11/23 History Ascorbic Acid [Vitamin C] 500 mg PO DAILY@0800 11/30/23 12/11/23 History Cholecalciferol [Vitamin D3 (25 25 mcg PO DAILY 11/30/23 12/11/23 History Mcg = 1000 Iu)] Melatonin 3 mg PO HS 11/30/23 12/11/23 History Metoclopramide HCl [Reglan] 5 mg PO AC-TID 11/30/23 12/11/23 History Metoprolol Tartrate [Lopressor] 25 mg PO BID@0800,1600 11/30/23 12/11/23 History Ondansetron [Zofran] 4 mg PO Q6H PRN 11/30/23 12/11/23 History Sennosides/Docusate Sodium [Senna 2 tab PO HS 11/30/23 12/11/23 History Plus 8.6-50 mg Tablet] guaiFENesin [guaiFENesin Oral 200 mg PO Q4H PRN 11/30/23 12/11/23 History Solution] Apixaban [Eliquis] 2.5 mg PO BID@0800,1600 tab 12/06/23 12/11/23 Rx Budesonide [Pulmicort] 1 mg INHALATION RT-BID 14 Days ml 12/06/23 12/11/23 Rx Dapagliflozin Propanediol [Farxiga] 5 mg PO DAILY@0800 tab 12/06/23 12/11/23 Rx Ipratropium-Albuterol Nebulize 3 ml INHALATION RT-QID each 12/06/23 12/11/23 Rx [Duoneb 0.5 mg-3 mg/3 ml Soln] Lactulose [Cephulac] 20 gm PO BID ml 12/06/23 12/11/23 Rx Potassium Chloride ER [K-Dur 20] 20 meq PO DAILY #0 tab 12/06/23 12/11/23 Rx Triamcinolone 0.1% Cream [Kenalog 1 applic TOPICAL BID each 12/06/23 12/11/23 Rx 0.1% Cream] diphenhydrAMINE [Benadryl] 25 mg PO TID PRN cap 12/06/23 12/11/23 Rx ALPRAZolam [Xanax] 0.25 mg PO BID PRN 12/11/23 12/11/23 History Bumetanide [Bumex] 1 mg PO BID 12/11/23 12/11/23 History Dulaglutide [Trulicity] 1.5 mg SQ FR 12/11/23 12/11/23 History Furosemide [Lasix] 80 mg PO BID 12/11/23 12/11/23 History Insulin Aspart [NovoLOG Flexpen] See Protocol SQ ACHS 12/11/23 12/11/23 History Magnesium Oxide [Mag-Ox] 400 mg PO BID 12/11/23 12/11/23 History Omeprazole 20 mg PO DAILY 12/11/23 12/11/23 History metFORMIN HCL [Glucophage] 1,000 mg PO BID 12/11/23 12/11/23 History Allergies Allergy/AdvReac Type Severity Reaction Status Date / Time Penicillins Allergy Rash/Hives Verified 12/11/23 11:53 azithromycin AdvReac Dyspnea & Verified 12/11/23 11:53 nausea ciprofloxacin [From Cipro] AdvReac Dyspnea & Verified 12/11/23 11:53 nausea Physical Exam Vitals: Vital Signs Temp Pulse Pulse Resp BP BP Pulse Ox 12/11/23 16:08 88 12/11/23 15:53 85 12/11/23 14:58 97.9 F 87 19 101/69 100 12/11/23 14:00 80 23 100 12/11/23 13:00 82 22 112/74 95 12/11/23 12:59 80 12/11/23 12:49 75 12/11/23 12:00 79 20 101/81 99 12/11/23 10:49 92 20 108/74 98 12/11/23 08:00 60 23 118/76 99 12/11/23 07:29 97.7 F 77 18 118/76 100 12/11/23 07:00 14 99/53 82 L 12/11/23 06:00 83 16 99/53 99 12/11/23 05:30 83 28 H 92/54 100 12/11/23 05:05 81 26 H 110/67 99 12/11/23 04:30 84 18 106/62 100 12/11/23 03:57 22 12/11/23 03:25 97.7 F 92 22 109/63 93 L Intake and Output 12/11/23 12/11/23 12/11/23 06:59 14:59 22:59 Other: Weight 140.614 kg 140.614 kg Results 12/11/23 03:47 12/11/23 03:47 CBC 12/11/23 Range/Units 03:47 WBC 6.7 (3.8-10.6) k/uL RBC 3.51 L (3.80-5.40) m/uL Hgb 9.9 L (11.4-16.0) gm/dL Hct 32.2 L (34.0-46.0) % Plt Count 234 (150-450) k/uL Comprehensive Metabolic Panel 12/11/23 Range/Units 03:47 Sodium 138 (137-145) mmol/L Potassium 4.8 (3.5-5.1) mmol/L Chloride 107 (98-107) mmol/L Carbon Dioxide 24 (22-30) mmol/L BUN 31 H (7-17) mg/dL Creatinine 1.38 H (0.52-1.04) mg/dL Glucose 126 H (74-99) mg/dL Calcium 8.3 L (8.4-10.2) mg/dL Current Medications Generic Name Dose Route Start Last Admin Trade Name Freq PRN Reason Stop Dose Admin Acetaminophen 650 mg 12/11/23 08:17 Acetaminophen Tab 325 Mg Tab PO Q4H PRN Pain Albuterol/Ipratropium 3 ml 12/11/23 12:00 12/11/23 15:53 Ipratropium-Albuterol 3 Ml Neb INHALATION 3 ml RT-QID [facility] Administration Apixaban 2.5 mg 12/11/23 16:00 Apixaban 2.5 Mg Tablet PO BID@0800,1600 [facility] Protocol Ascorbic Acid 500 mg 12/12/23 08:00 Ascorbic Acid 500 Mg Tab PO DAILY@0800 [facility] Atorvastatin Calcium 10 mg 12/11/23 21:00 Atorvastatin 10 Mg Tab PO HS [facility] Budesonide 1 mg 12/11/23 20:00 Budesonide 1 Mg/2 Ml Nebu INHALATION RT-BID [facility] Cholecalciferol 75 mcg 12/11/23 09:00 12/11/23 12:46 Cholecalciferol 25 Mcg (1000 Iu) Tablet PO 75 mcg DAILY [facility] Administration Dapagliflozin 5 mg 12/12/23 08:00 Dapagliflozin Propanediol 5 Mg Tablet PO DAILY@0800 [facility] Furosemide 40 mg 12/11/23 09:00 12/11/23 12:46 Furosemide 10 Mg/Ml 4 Ml Vial IV 40 mg Q12HR [facility] Administration Guaifenesin 200 mg 12/11/23 08:17 Guaifenesin Syrup 100mg/5ml 200 Mg/10 Ml Cup PO Q4H PRN Airway Patency Sodium Chloride 1,000 mls @ 20 mls/hr 12/11/23 06:30 12/11/23 06:37 Saline 0.9% IV 20 mls/hr .Q24H [facility] Administration Insulin Aspart 0 unit 12/11/23 12:30 12/11/23 15:00 Insulin Aspart (Novolog) 100 Unit/Ml Vial SQ Not Given ACHS [facility] Protocol Lactulose 20 gm 12/11/23 09:00 12/11/23 12:46 Lactulose 20 Gm/30 Ml Cup PO 20 gm BID [facility] Administration Magnesium Oxide 400 mg 12/11/23 16:00 Magnesium Oxide 400 Mg Tab PO BID@0800,1600 [facility] Metoclopramide HCl 5 mg 12/11/23 12:30 12/11/23 12:46 Metoclopramide 5 Mg Tab PO 5 mg AC-TID [facility] Administration Metoprolol Tartrate 25 mg 12/11/23 16:00 Metoprolol Tartrate 25 Mg Tab PO BID@0800,1600 [facility] Naloxone HCl 0.2 mg 12/11/23 06:26 Naloxone 0.4 Mg/Ml 1 Ml Vial IV Q2M PRN Opioid Reversal Dulaglutide [ 1.5 mg 12/16/23 09:00 Trulicity] 1.5 Mg SQ FR [facility] Pantoprazole Sodium 40 mg 12/12/23 07:30 Pantoprazole 40 Mg Tablet PO AC-BRKFST [facility] Senna/Docusate Sodium 2 each 12/11/23 21:00 Sennosides-Docusate Sodium 1 Each Tab PO HS [facility] Spironolactone 12.5 mg 12/11/23 16:30 Spironolactone 25 Mg Tab PO DAILY [facility] Triamcinolone Acetonide 1 applic 12/11/23 09:00 12/11/23 12:47 Triamcinolone 0.1% Cream 80 Gm Tube TOPICAL 1 applic BID [facility] Administration Protocol Intake and Output 12/11/23 12/11/23 12/11/23 06:59 14:59 22:59 Other: Weight 140.614 kg 140.614 kg Patient Weight 12/12/23 06:59 Weight 140.614 kg 12/11/23 03:47 12/11/23 03:47
[2023-12-11 16:44] LABS: Glucose,Whole Blood 169 mg/dL (70-110)
[2023-12-11] MEDS: MAGNESIUM OXIDE 400 MG TAB PO SCH (17:28)
[2023-12-11] MEDS: APIXABAN 2.5 MG TABLET PO SCH (17:28)
[2023-12-11] MEDS: SPIRONOLACTONE 25 MG TAB PO SCH (17:28)
[2023-12-11] MEDS: METOPROLOL TARTRATE 25 MG TAB PO SCH (17:28)
--- NOTE | 2023-12-11 17:40 | US ---
EXAMINATION TYPE: US venous doppler duplex UE LT DATE OF EXAM: 12/11/2023 COMPARISON: NONE CLINICAL INDICATION: Female, 88 years old with history of edema; Left arm edema per order. No rednes s. Patient states hand hurts. SIDE PERFORMED: Left TECHNIQUE AND FINDINGS: Suboptimal scan due to patient body habitus. Imaged veins fill with normal color signal, show the expected waveforms and compressibility. No evide nce of intraluminal filling defect. Mild soft tissue edema noted in the region of the ulnar vessels. Left Arm: Negative for DVT IMPRESSION: No evidence of DVT in the left upper extremity. Mild edema.
[2023-12-11 20:15] LABS: Glucose,Whole Blood 157 mg/dL (70-110)
[2023-12-11] MEDS: SENNOSIDES-DOCUSATE SODIUM 1 EACH TAB PO SCH (21:09)
[2023-12-11] MEDS: ATORVASTATIN 10 MG TAB PO SCH (21:09)
[2023-12-11] MEDS: BUDESONIDE 1 MG/2 ML NEBU INHALATION SCH (21:50)
[2023-12-12] MEDS: guaiFENesin SYRUP 100MG/5ML 200 MG/10 ML CUP PO PRN (01:28)
[2023-12-12 06:09] LABS: Glucose,Whole Blood 136 mg/dL (70-110)
[2023-12-12] MEDS: PANTOPRAZOLE 40 MG TABLET PO SCH (06:13)
[2023-12-12] MEDS: DAPAGLIFLOZIN PROPANEDIOL 5 MG TABLET PO SCH (08:25)
[2023-12-12] MEDS: ASCORBIC ACID 500 MG TAB PO SCH (08:25)
--- NOTE | 2023-12-12 09:22 | P.PN ---
Subjective Progress Note Date: 12/12/23 HISTORY OF PRESENTING ILLNESS 88-year-old female was recently admitted to the hospital because of congestive heart failure and respiratory distress. She was managed with IV antibiotics and was discharged home on Bumex 3 days ago. In [place] [facility] patient started having increased cough and increased shortness of breath due to which she was sent to the hospital again. Patient has chronic lower extremity edema. Morbidly obese, BMI 51, previous history of DVT and pulmonary embolism. Type 2 diabetes, hypertension, hyperlipidemia chronic atrial fibrillation and diastolic heart failure. BUN 31, creatinine 1.3, hemoglobin 9.9 12/12 Patient seen today in follow-up. She continues to have decreased breath sounds/crackles and lower extremity edema. She is currently on Lasix 40 mg IV every 12 hours and was started on spironolactone 12.5 mg daily yesterday. Blood pressure 101/61, heart rate in the 80s, pulse ox 96% on 2 L. Left upper extremity venous Doppler duplex was negative for DVT. PHYSICAL EXAMINATION Vital signs reviewed. Neck: Thick neck difficult to assess as she has elevated JVD Lungs: Reduce inspiratory effort and mild crackles in lung candelaria Cardiac: Irregular pulse,S1-S2, no significant murmurs. Abdomen: Soft nontender. Extremities: 3+ pitting edema lower extremity which is chronic. Neuro: Alert, oritented, ASSESSMENT Acute on chronic HFREF exacerbation . EF 40-45% moderate LVH, Moderate to severe aortic stenosis Chronic lower extremity edema Type II Diabetes CKD stage III Recent COVID-19 infection. Post viral cough History of DVT and pulmonary embolism on anti-cognition Chronic atrial fibrillation Hypertension Dyslipidemia Morbid obesity PLAN Continue Eliquis. She is on 2.5 mg. Because of her BMI would recommended to be 5 mg. Reevaluate tomorrow Continue Lasix IV 40 mg twice a day. Metoprolol 25 mg twice a day, Aldactone 12.5 mg daily We will intensify heart failure medication further as tolerated. May consider adding metolazone with lasix. Continue farxiga 5 mg, consider increasing to 10 mg at the time of discharge Nurse practitioner note has been reviewed, I agree with documented findings and plan of care. Patient was seen and examined. Objective - Vital Signs Vital signs: Vital Signs Temp 97.2 F L 12/12/23 06:49 Pulse 69 12/12/23 06:49 Resp 16 12/12/23 06:49 BP 101/61 12/12/23 06:49 Pulse Ox 96 12/12/23 06:49 FiO2 Intake & Output 12/11/23 12/12/23 12/12/23 18:59 06:59 18:59 Weight 140.614 kg 142.5 kg Other: Voiding Method External Catheter # Voids 1 3 - Labs CBC & Chem 7: 12/11/23 03:47 12/11/23 03:47 Labs: Abnormal Lab Results - Last 24 Hours (Table) 12/11/23 12/11/23 12/12/23 Range/Units 16:41 20:14 06:07 POC Glucose (mg/dL) 169 H 157 H 136 H (70-110) mg/dL
[2023-12-12 10:53] LABS: Basophils # (A) 0.05 X 10*3/uL (0.00-0.10); Basophils % (A) 0.7 %; Eosinophils # (A) 0.19 X 10*3/uL (0.04-0.35); Eosinophils % (A) 2.6 %; HCT 31.1 % (37.2-46.3); HGB 9.1 g/dL (12.0-15.0); Lymphocytes % (A) 16.1 %; MCHC 29.3 g/dL (32.0-37.0); MCV 92.3 FL (80.0-97.0); Mean Platelet Volume 10.7 FL (9.5-12.2); Monocytes # (A) 0.74 X 10*3/uL (0.20-1.00); Monocytes % (A) 9.9 %; NRBC Per 100 WBC 0.02 X 10*3/uL (0.00-0.01); Neutrophils # (A) 5.22 X 10*3/uL (1.80-7.70); Neutrophils % (A) 70.2 %; Platelet Count 92 X 10*3/uL (140-440); RBC 3.37 X 10*6/uL (4.10-5.20); RDW 19.8 % (11.5-14.5); WBC 7.44 X 10*3/uL (4.50-10.00)
[2023-12-12 11:06] LABS: ALT 8 U/L (8-44); AST 14 U/L (13-35); Albumin 3.3 g/dL (3.8-4.9); Albumin/Globulin Ratio 1.06 Ratio (1.60-3.17); Alkaline Phosphatase 79 U/L (41-126); Blood Urea Nitrogen 30.9 mg/dL (9.0-27.0); Calcium 8.8 mg/dL (8.7-10.3); Carbon Dioxide 22.2 mmol/L (21.6-31.8); Chloride 106 mmol/L (96-109); Globulin 3.1 g/dL (1.6-3.3); Glucose 119 mg/dL (70-110); Sodium 140 mmol/L (135-145); Total Bilirubin 0.4 mg/dL (0.3-1.2); Total Protein 6.4 g/dL (6.2-8.2)
[2023-12-12 11:36] LABS: Glucose,Whole Blood 227 mg/dL (70-110)
--- NOTE | 2023-12-12 13:18 | P.PN ---
Subjective Progress Note Date: 12/12/23 Chief Complaint: cough/SOB HISTORY OF PRESENT ILLNESS This is an 88-year-old female patient of mine, with past medical history of PE and DVT, morbid obesity, diabetes mellitus type 2, hypertension, hyperlipidemia, history of spinal stenosis status post surgery in [place], history of small bowel obstruction secondary to incarcerated umbilical hernia status post repair of the hernia with resolution of the bowel obstruction, history of atrial fibrillation, history of chronic diastolic heart failure with significant for hypertension and significant venous hypertension both lower extremities and significant edema, patient patient has been almost in a sedentary lifestyle noncompliant with her diet sitting in her wheelchair most of the day, has been on chronic diuretic use , patient was recently discharged from [facility] after she was admitted for acute on chronic systolic heart failure and she was seen by Cardiology and pulmonary and her Echocardiogram showed reduced EF 40-45% with severe Aortic stenosis and mild MR and Aortic aneurysm 4.1 cm, she was discharge 12/06/2021 and she was seen by me yesrterday at [facility] where she was short of breath withy increased weight gain she was discharged on Bumex 1 mg po daily that was increased to bid without any help , so she was sent out to [facility] for acute on chronic systolic heart failure. 12/12: Patient has been seen by cardiology and maintained on same medications. Left upper extremity duplex was negative for DVT. Patient continues to have lower extremity edema more than her baseline and bilateral crackles. Patient is also followed by pulmonary medicine. Blood pressure 101/61, heart rate in the 60s to 80s, pulse ox 91% on 2 L nasal cannula, afebrile. Repeat blood work reveals WBC 7.4, hemoglobin 9.1, platelet count 92. Electrolytes are normal, BUN 30 creatinine 1.5. Blood sugar 119. Capillary blood sugar is [id number]. Patient's appetite seems to be improving. She states she worked with physical therapy by sitting on the edge of the bed for 15 minutes today REVIEW OF SYSTEMS Constitutional: Reports no fever or chills, no night sweats. positive for weight change. Reports weakness, Reports fatigue, no lethargy, no daytime slee piness. HEENT: No headache. No blurred vision or double vision, no loss of vision. No dizziness. No nasal drainage or congestion. No epistaxis. No sore throat, hard of hearing Lungs: positive for shortness of breath, positive for dry cough, no sputum production. positive for wheezing. Cardiovascular: No chest pain, positive for lower extremity edema, positive for palpitations, no paroxysmal nocturnal dyspnea. No orthopnea. No lightheadedness or dizziness. No syncopal episodes. Abdominal: No abdominal pain. positive for nausea, no vomiting. No diarrhea. No constipation. No bloody or tarry stools. Reports loss of appetite. Genitourinary: No dysuria, increased frequency, urgency. No urinary retention, positive for urinary incontinence Musculoskeletal: No myalgias. Reports muscle weakness, Reports gait dysfunction, Reports falls. positive for back pain. No neck pain. Integumentary: Reports wound to the left big toe with significant tissue edema, reports lower extremity redness, there is denuded ulcer to the left big toe Neurologic: No aphasia. No facial droop. No change in mentation. No head injury. No headache. No paralysis. No paresthesia. Psychiatric: positive for depression. No anxiety. No mood swings. Endocrine: positive for abnormal blood sugars. positive for weight change. PHYSICAL EXAMINATION Gen: This is an 88-year-old female, sitting up in bed in minimal respiratory distress. HEENT: Head is atraumatic, normocephalic. Pupils equal, round. Sclerae is anicteric, mucous membranes of the mouth are somewhat dry, there is minimal thrush. NECK: Supple. No JVD. No lymphadenopathy. No thyromegaly. LUNGS: Decreased breath sounds at the bases, few rhonchi, minimal expiratory wheezes, no chest wall tenderness, no intercostal retractions. HEART: first heart sound is depressed, second heart sound is normal, irregularly irregular, there is systolic ejection murmur 2/6 located at the left sternal border. ABDOMEN: morbidly obese abdomen, soft nontender nondistended, positive bowel sounds. EXTREMITIES: 2+ bilateral pitting edema to the lower extremities, chronic stasis dermatitis, there is bilateral foot drop. NEUROLOGICAL: Patient is awake, alert and oriented x3. Cranial nerves 2 through 12 are grossly intact significant weakness to both lower extremity his right more than left, bilateral foot drop ASSESSMENT AND PLAN 1. Acute Systolic heart failure. Continue the patient Lasix 40 mg IV push every 12 hours, continue patient on metoprolol 25 mg orally twice daily, spironolactone 12.5 mg daily, Echocardiogram was done last week showed LVF 40 % with severe , we will continue with Farxiga 10 mg po daily 2. Left lower lobe pneumonia. Resolved 3. Chronic atrial fibrillation . Continue metoprolol 25 mg orally twice every day, continue patient on Eliquis 2.5 mg orally twice every day. 4. Anemia of chronic diseases. Stable at this time. 5. History of multiple DVTs and PE on terminal operator anticoagulation. Continue eliquis 2.5 mg twice daily. Patient recently underwent [place] filter on November 2019 prior to laminectomy surgery. 6. Valvular heart disease with severe tricuspid regurgitation, severe Aortic stenosis she will need TAVR, mild mitral regurgitation. 7. Severe pulmonary hypertension with RVSP 60 mmHg. continue patient on Metoprolol 25 mg orally bid continue patient on Lasix 40 mg IVP twice every day. 8. Hypertension and hypertensive cardiovascular disease. Continue patient on Metoprolol 25 mg po bid, we will continue to monitor BP very closely 9. Hyperlipidemia. Continue atorvastatin 10 mg at bedtime. 10. Diabetes mellitus type 2. Continue patient on Farxiga 10 mg po daily, Trulicity 1.5 mg SC q week , along with SSI. 11. Spinal stenosis status post laminectomy, with bilateral foot drop 12. Recurrent depression. Continue patient on Effexor 75 mg orally once every day. 13. Gastroesophageal reflux disease and GI prophylaxis. Protonix 40 mg po daily. 14. Thrombocytopenia. Monitor platelets. 15. DVT prophylaxis. Eliquis 2.5 mg orally twice every day. No code. Impression and plan of care have been directed as dictated by the signing physician. India Conway nurse practitioner acting as scribe for signing physician. Objective - Vital Signs Vital signs: Vital Signs Temp 97.2 F L 12/12/23 06:49 Pulse 69 12/12/23 06:49 Resp 16 12/12/23 06:49 BP 101/61 12/12/23 06:49 Pulse Ox 96 12/12/23 06:49 FiO2 Intake & Output 12/11/23 12/12/23 12/12/23 18:59 06:59 18:59 Weight 140.614 kg 142.5 kg Other: Voiding Method External Catheter # Voids 1 3 - Labs CBC & Chem 7: 12/12/23 05:15 12/12/23 05:15 Labs: Abnormal Lab Results - Last 24 Hours (Table) 12/11/23 12/11/23 12/12/23 Range/Units 16:41 20:14 06:07 POC Glucose (mg/dL) 169 H 157 H 136 H (70-110) mg/dL
--- NOTE | 2023-12-12 14:43 | P.PN ---
Subjective Progress Note Date: 12/12/23 This 88-year-old female patient is being readmitted to the hospital due to concerns of some respiratory distress. While at the [facility], the patient was being moved around and she felt slightly more short of breath and for that reason she was brought into the hospital for further investigation. She has a long list of medical problems and comorbidities. She is known to me from previous admissions. She denies having any chest pain. No altered mentation. She has chronic edema lower extremities bilaterally and the patient has been taking diuretics on outpatient basis. Her mobility is limited. No altered mentation. I reviewed the chest x-ray of the chest that shows, thyromegaly and mild pulmonary vascular congestion. She has been morbidly obese with a body mass index of 51.6. She has previous history of DVT and pulmonary embolism. She has diabetes mellitus type 2, hypertension hyperlipidemia and spinal stenosis along with chronic A. fib and diastolic heart failure and chronic veno us stasis edema lower extremities bilaterally. She was taking Bumex on outpatient basis 1 mg daily basis. No fever. No altered mentation. The echoes at 6.7 with a hemoglobin of 9.9. BUN is at 30 with creatinine 1.38 and her renal function stable since her discharge from the hospital. Sodium level is at 138. The patient is seen today 12/12/2023 and follow-up on the regular medical floor. She is currently resting comfortably in bed. Awake and alert in no acute distress. She is maintaining O2 saturation in the 90s on 2 L/m per nasal cannula. She's been afebrile. Hemodynamically stable. She did have some left upper extremity edema. Doppler was negative for DVT. White count 7.4. Hemoglobin 9.1. Platelets 92,000. Sodium 140. Potassium 5.0. Bicarb 22. BUN 81. Creatinine 1.5. Glucose 119. She is continued on bronchodilators. Anticoagulated without this. Remains on IV diuretics. No accurate I&O. Objective - Vital Signs Vital signs: Vital Signs Temp 97.2 F L 12/12/23 06:49 Pulse 72 12/12/23 12:31 Resp 17 12/12/23 08:25 BP 101/61 12/12/23 06:49 Pulse Ox 91 L 12/12/23 09:00 FiO2 Intake & Output 12/11/23 12/12/23 12/12/23 18:59 06:59 18:59 Weight 140.614 kg 142.5 kg Other: Voiding Method External Catheter Bedpan # Voids 1 3 - Exam GENERAL EXAM: Alert, 88-year-old female, on 2 L nasal cannula, in no apparent distress. HEAD: Normocephalic and atraumatic EYES: Normal reaction of pupils, equal size. NOSE: Clear with pink turbinates. THROAT: No erythema or exudates. NECK: No masses, no JVD. CHEST: No chest wall deformity. LUNGS: Equal air entry with end expiratory wheeze. CVS: S1 and S2 normal with no audible murmur, regular rhythm. No extra heart sounds ABDOMEN: Obese abdomen, no hepatosplenomegaly, active bowel sounds, no guarding or rigidity. SPINE: No scoliosis or deformity SKIN: Left lower extremity erythema and edema CENTRAL NERVOUS SYSTEM: No focal deficits, tone is normal in all 4 extremities. EXTREMITIES: Bilateral lower extremity edema, left greater than right. No clubbing, or cyanosis. Peripheral pulses are intact. - Labs CBC & Chem 7: 12/12/23 05:15 12/12/23 05:15 Labs: Abnormal Lab Results - Last 24 Hours (Table) 12/11/23 12/11/23 12/12/23 Range/Units 16:41 20:14 05:15 RBC 3.37 L (4.10-5.20) X 10*6/uL Hgb 9.1 L (12.0-15.0) g/dL Hct 31.1 L (37.2-46.3) % MCHC 29.3 L (32.0-37.0) g/dL RDW 19.8 H (11.5-14.5) % Plt Count 92 L (140-440) X 10*3/uL NRBC/100 WBC Diff 0.02 H (0.00-0.01) X 10*3/uL BUN (9.0-27.0) mg/dL Est GFR (CKD-EPI) (>=60) BUN/Creatinine Ratio (12.00-20.00) Ratio Glucose (70-110) mg/dL POC Glucose (mg/dL) 169 H 157 H (70-110) mg/dL Albumin (3.8-4.9) g/dL Albumin/Globulin Ratio (1.60-3.17) Ratio 12/12/23 12/12/23 12/12/23 Range/Units 05:15 06:07 11:34 RBC (4.10-5.20) X 10*6/uL Hgb (12.0-15.0) g/dL Hct (37.2-46.3) % MCHC (32.0-37.0) g/dL RDW (11.5-14.5) % Plt Count (140-440) X 10*3/uL NRBC/100 WBC Diff (0.00-0.01) X 10*3/uL BUN 30.9 H (9.0-27.0) mg/dL Est GFR (CKD-EPI) 34 L (>=60) BUN/Creatinine Ratio 20.60 H (12.00-20.00) Ratio Glucose 119 H (70-110) mg/dL POC Glucose (mg/dL) 136 H 227 H (70-110) mg/dL Albumin 3.3 L (3.8-4.9) g/dL Albumin/Globulin Ratio 1.06 L (1.60-3.17) Ratio Assessment and Plan Assessment: Chronic dyspnea without any clear indication that there has been any significant respiratory decompensation since her discharge [facility] Chronic hypoxic respiratory failure, currently on 2 L of oxygen by nasal cannula, likely in the base of CHF. No clear indication for pneumonia. No evidence of pulmonaary embolism Chronic lower extremity edema with signs of chronic fluid overload, maintained on Bumex on outpatient basis Systolic heart failure with an ejection fraction of 40 to 45%, severe pulmonary hypertension, moderate to severe degree of aortic stenosis Moderate degree of aortic stenosis as evident on the echocardiogram Diabetes mellitus type 2 Chronic kidney disease, stage III Recent infection with COVID-19 infection PCR was negative at time of admission History of osteomyelitis of the left toe Diabetes mellitus type 2 Previous history of DVT and pulmonary embolism, maintained on anticoagulation with Eliquis Paroxysmal atrial fibrillation with a controlled rate and currently on anticoagulants with Eliquis Hyperlipidemia Hypertension Obesity Spinal stenosis and the patient has foot drop and she is unable to relate this point in time Poor overall functional performance based on the above-mentioned multiple comorbidities intermediate resident Plan: The patient was seen and evaluated Labs and medications reviewed Continue the current treatment plan Titrate the FiO2 as tolerated Anticoagulated with Eliquis DO NOT RESUSCITATE/DO NOT INTUBATE CODE STATUS Could be transferred back to the [facility] I have personally seen and examined the patient, performed the documentation and the assessment and plan as written. Number of minutes spent on the visit: 10.
[2023-12-12 16:48] LABS: Glucose,Whole Blood 187 mg/dL (70-110)
[2023-12-12 19:24] LABS: Glucose,Whole Blood 179 mg/dL (70-110)
[2023-12-13 06:02] LABS: Glucose,Whole Blood 151 mg/dL (70-110)
[2023-12-13 06:13] LABS: African American GFR (CKD) 40 (>60 ml/min/1.73 sqM); Anion Gap 8 mmol/L; Blood Urea Nitrogen 35 mg/dL (7-17); Calcium 8.5 mg/dL (8.4-10.2); Carbon Dioxide 21 mmol/L (22-30); Chloride 108 mmol/L (98-107); Glucose 111 mg/dL (74-99); Non-African American GFR(CKD) 34 (>60 ml/min/1.73 sqM); Potassium 4.9 mmol/L (3.5-5.1); Sodium 137 mmol/L (137-145)
[2023-12-13] MEDS: DAPAGLIFLOZIN PROPANEDIOL 10 MG TABLET PO SCH (09:10)
[2023-12-13 11:10] LABS: Glucose,Whole Blood 198 mg/dL (70-110)
--- NOTE | 2023-12-13 12:40 | P.PN ---
Subjective Progress Note Date: 12/13/23 This 88-year-old female patient is being readmitted to the hospital due to concerns of some respiratory distress. While at the [facility], the patient was being moved around and she felt slightly more short of breath and for that reason she was brought into the hospital for further investigation. She has a long list of medical problems and comorbidities. She is known to me from previous admissions. She denies having any chest pain. No altered mentation. She has chronic edema lower extremities bilaterally and the patient has been taking diuretics on outpatient basis. Her mobility is limited. No altered mentation. I reviewed the chest x-ray of the chest that shows, thyromegaly and mild pulmonary vascular congestion. She has been morbidly obese with a body mass index of 51.6. She has previous history of DVT and pulmonary embolism. She has diabetes mellitus type 2, hypertension hyperlipidemia and spinal stenosis along with chronic A. fib and diastolic heart failure and chronic veno us stasis edema lower extremities bilaterally. She was taking Bumex on outpatient basis 1 mg daily basis. No fever. No altered mentation. The echoes at 6.7 with a hemoglobin of 9.9. BUN is at 30 with creatinine 1.38 and her renal function stable since her discharge from the hospital. Sodium level is at 138. The patient is seen today 12/12/2023 and follow-up on the regular medical floor. She is currently resting comfortably in bed. Awake and alert in no acute distress. She is maintaining O2 saturation in the 90s on 2 L/m per nasal cannula. She's been afebrile. Hemodynamically stable. She did have some left upper extremity edema. Doppler was negative for DVT. White count 7.4. Hemoglobin 9.1. Platelets 92,000. Sodium 140. Potassium 5.0. Bicarb 22. BUN 81. Creatinine 1.5. Glucose 119. She is continued on bronchodilators. Anticoagulated without this. Remains on IV diuretics. No accurate I&O. The patient is seen today December 13, 2023 and follow-up on the regular medical floor. She is currently resting flat in bed. Awake and alert in no acute distress. She is maintaining O2 saturation in the 90s on 3 L/min per nasal cannula. She continues with lower extremity edema and changes of chronic venous stasis. She remains on DuoNeb ventilations, Pulmicort inhalations. Remains on IV Lasix along with Aldactone. Anticoagulated with Xarelto. No accurate I&O. Sodium 137. Potassium 4.9. Bicarb 21. BUN 35. Creatinine 1.39. Glucose 111. Objective - Vital Signs Vital signs: Vital Signs Temp 98.5 F 12/13/23 08:00 Pulse 76 12/13/23 11:14 Resp 18 12/13/23 08:00 BP 105/73 12/13/23 10:55 Pulse Ox 94 L 12/13/23 08:00 FiO2 Intake & Output 12/12/23 12/13/23 12/13/23 18:59 06:59 18:59 Weight 119 kg Other: Voiding Method Bedpan Diaper Diaper External Catheter # Voids 5 1 2 # Bowel Movements 1 - Exam GENERAL EXAM: Alert, morbidly obese, 88-year-old female, on 3 L nasal cannula, in no apparent distress. HEAD: Normocephalic and atraumatic EYES: Normal reaction of pupils, equal size. NOSE: Clear with pink turbinates. THROAT: No erythema or exudates. NECK: No masses, no JVD. CHEST: No chest wall deformity. LUNGS: Equal air entry with end expiratory wheeze. CVS: S1 and S2 normal with no audible murmur, regular rhythm. No extra heart sounds ABDOMEN: Obese abdomen, no hepatosplenomegaly, active bowel sounds, no guarding or rigidity. SPINE: No scoliosis or deformity SKIN: Left lower extremity erythema and edema CENTRAL NERVOUS SYSTEM: No focal deficits, tone is normal in all 4 extremities. EXTREMITIES: Bilateral lower extremity edema, left greater than right. Changes of chronic venous stasis. Peripheral pulses are intact. - Labs CBC & Chem 7: 12/12/23 05:15 12/13/23 05:08 Labs: Abnormal Lab Results - Last 24 Hours (Table) 12/12/23 12/12/23 12/13/23 Range/Units 16:47 19:22 05:08 Chloride 108 H (98-107) mmol/L Carbon Dioxide 21 L (22-30) mmol/L BUN 35 H (7-17) mg/dL Creatinine 1.39 H (0.52-1.04) mg/dL Glucose 111 H (74-99) mg/dL POC Glucose (mg/dL) 187 H 179 H (70-110) mg/dL 12/13/23 12/13/23 Range/Units 06:00 11:09 Chloride (98-107) mmol/L Carbon Dioxide (22-30) mmol/L BUN (7-17) mg/dL Creatinine (0.52-1.04) mg/dL Glucose (74-99) mg/dL POC Glucose (mg/dL) 151 H 198 H (70-110) mg/dL Assessment and Plan Assessment: Chronic dyspnea without any clear indication that there has been any significant respiratory decompensation since her [facility] Chronic hypoxic respiratory failure, currently on 2 L of oxygen by nasal cannula, likely in the base of CHF. No clear indication for pneumonia. No evidence of pulmonary embolism Chronic lower extremity edema with signs of chronic fluid overload, maintained on Bumex on outpatient basis Systolic heart failure with an ejection fraction of 40 to 45%, severe pulmonary hypertension, moderate to severe degree of aortic stenosis Moderate degree of aortic stenosis as evident on the echocardiogram Diabetes mellitus type 2 Chronic kidney disease, stage III Recent infection with COVID-19 infection PCR was negative at time of admission History of osteomyelitis of the left toe Diabetes mellitus type 2 Previous history of DVT and pulmonary embolism, maintained on anticoagulation with Eliquis Paroxysmal atrial fibrillation with a controlled rate and currently on anticoagulants with Eliquis Hyperlipidemia Hypertension Obesity Spinal stenosis and the patient has foot drop and she is unable to relate this point in time Poor overall functional performance based on the above-mentioned multiple comorbidities [facility] resident Plan: The patient was seen and evaluated Labs and medications reviewed Continue the current treatment plan Titrate the FiO2 as tolerated DO NOT RESUSCITATE/DO NOT INTUBATE CODE STATUS Feeling back to her baseline Could be transferred back to [facility] I have personally seen and examined the patient, performed the documentation and the assessment and plan as written. Number of minutes spent on the visit: 10.
--- NOTE | 2023-12-13 14:54 | P.PN ---
Subjective Progress Note Date: 12/13/23 Chief Complaint: cough/SOB HISTORY OF PRESENT ILLNESS This is an 88-year-old female patient of mine, with past medical history of PE and DVT, morbid obesity, diabetes mellitus type 2, hypertension, hyperlipidemia, history of spinal stenosis status post surgery in [place], history of small bowel obstruction secondary to incarcerated umbilical hernia status post repair of the hernia with resolution of the bowel obstruction, history of atrial fibrillation, history of chronic diastolic heart failure with significant for hypertension and significant venous hypertension both lower extremities and significant edema, patient patient has been almost in a sedentary lifestyle noncompliant with her diet sitting in her wheelchair most of the day, has been on chronic diuretic use , patient was recently discharged from [facility] after she was admitted for acute on chronic systolic heart failure and she was seen by Cardiology and pulmonary and her Echocardiogram showed reduced EF 40-45% with severe Aortic stenosis and mild MR and Aortic aneurysm 4.1 cm, she was discharge 12/06/2021 and she was seen by me yesrterday at [facility] where she was short of breath withy increased weight gain she was discharged on Bumex 1 mg po daily that was increased to bid without any help , so she was sent out to [facility] for acute on chronic systolic heart failure. 12/12: Patient has been seen by cardiology and maintained on same medications. Left upper extremity duplex was negative for DVT. Patient continues to have lower extremity edema more than her baseline and bilateral crackles. Patient is also followed by pulmonary medicine. Blood pressure 101/61, heart rate in the 60s to 80s, pulse ox 91% on 2 L nasal cannula, afebrile. Repeat blood work reveals WBC 7.4, hemoglobin 9.1, platelet count 92. Electrolytes are normal, BUN 30 creatinine 1.5. Blood sugar 119. Capillary blood sugar is [id number]. Patient's appetite seems to be improving. She states she worked with physical therapy by sitting on the edge of the bed for 15 minutes today. 12/13: Patient continues to have fluid overload and lower extremity edema but breathing seems to be improving. She has been on IV Lasix 40 mg every 12 hours. Repeat renal function is BUN 35 creatinine 1.39, potassium 4.9. Blood pressure 105/73, heart rate in the 70s. Patient is currently on 3 L oxygen nasal cannula. Cardiology and pulmonary medicine are following. REVIEW OF SYSTEMS Constitutional: Reports no fever or chills, no night sweats. positive for weight change. Reports weakness, Reports fatigue, no lethargy, no daytime sleepiness. HEENT: No headache. No blurred vision or double vision, no loss of vision. No dizziness. No nasal drainage or congestion. No epistaxis. No sore throat, hard of hearing Lungs: positive for shortness of breath, positive for dry cough, no sputum production. positive for wheezing. Cardiovascular: No chest pain, positive for lower extremity edema, positive for palpitations, no paroxysmal nocturnal dyspnea. No orthopnea. No lightheadedness or dizziness. No syncopal episodes. Abdominal: No abdominal pain. positive for nausea, no vomiting. No diarrhea. No constipation. No bloody or tarry stools. Reports loss of appetite. Genitourinary: No dysuria, increased frequency, urgency. No urinary retention, positive for urinary incontinence Musculoskeletal: No myalgias. Reports muscle weakness, Reports gait dysfunction, Reports falls. positive for back pain. No neck pain. Integumentary: Reports wound to the left big toe with significant tissue edema, reports lower extremity redness, there is denuded ulcer to the left big toe Neurologic: No aphasia. No facial droop. No change in mentation. No head injury. No headache. No paralysis. No paresthesia. Psychiatric: positive for depression. No anxiety. No mood swings. Endocrine: positive for abnormal blood sugars. positive for weight change. PHYSICAL EXAMINATION Gen: This is an 88-year-old female, sitting up in bed in minimal respiratory distress. HEENT: Head is atraumatic, normocephalic. Pupils equal, round. Sclerae is anicteric, mucous membranes of the mouth are somewhat dry, there is minimal thrush. NECK: Supple. No JVD. No lymphadenopathy. No thyromegaly. LUNGS: Decreased breath sounds at the bases, few rhonchi, minimal expiratory wheezes, no chest wall tenderness, no intercostal retractions. HEART: first heart sound is depressed, second heart sound is normal, irregularly irregular, there is systolic ejection murmur 2/6 located at the left sternal border. ABDOMEN: morbidly obese abdomen, soft nontender nondistended, positive bowel sounds. EXTREMITIES: 2+ bilateral pitting edema to the lower extremities, chronic stasis dermatitis, there is bilateral foot drop. NEUROLOGICAL: Patient is awake, alert and oriented x3. Cranial nerves 2 through 12 are grossly intact significant weakness to both lower extremity his right more than left, bilateral foot drop ASSESSMENT AND PLAN 1. Acute Systolic heart failure. Continue the patient on Lasix increased to 80 mg IV push every 12 hours, continue patient on metoprolol 25 mg orally twice daily, spironolactone 12.5 mg daily, Echocardiogram was done last week showed LVF 40 % with severe , we will continue with Farxiga 10 mg po daily, continue to monitor electrolytes and renal function 2. Left lower lobe pneumonia. Resolved 3. Chronic atrial fibrillation . Continue metoprolol 25 mg orally twice every day, continue patient on Eliquis 2.5 mg orally twice every day. 4. Anemia of chronic diseases. Stable at this time. 5. History of multiple DVTs and PE on traffic analyst anticoagulation. Continue eliquis 2.5 mg twice daily. Patient recently underwent Malik filter on November 2019 prior to laminectomy surgery. 6. Valvular heart disease with severe tricuspid regurgitation, severe Aortic stenosis she will need TAVR, mild mitral regurgitation. 7. Severe pulmonary hypertension with RVSP 60 mmHg. continue patient on Metoprolol 25 mg orally bid continue patient on Lasix 40 mg IVP twice every day. 8. Hypertension and hypertensive cardiovascular disease. Continue patient on Metoprolol 25 mg po bid, we will continue to monitor BP very closely 9. Hyperlipidemia. Continue atorvastatin 10 mg at bedtime. 10. Diabetes mellitus type 2. Continue patient on Farxiga 10 mg po daily, Trulicity 1.5 mg SC q week , along with SSI. 11. Spinal stenosis status post laminectomy, with bilateral foot drop 12. Recurrent depression. Continue patient on Effexor 75 mg orally once every day. 13. Gastroesophageal reflux disease and GI prophylaxis. Protonix 40 mg po daily. 14. Thrombocytopenia. Monitor platelets. 15. DVT prophylaxis. Eliquis 2.5 mg orally twice every day. No code. Impression and plan of care have been directed as dictated by the signing physician. India Conway nurse practitioner acting as scribe for signing physician. Objective - Vital Signs Vital signs: Vital Signs Temp 98.5 F 12/13/23 08:00 Pulse 76 12/13/23 11:14 Resp 18 12/13/23 08:00 BP 105/73 12/13/23 10:55 Pulse Ox 94 L 12/13/23 08:00 FiO2 Intake & Output 12/12/23 12/13/23 12/13/23 18:59 06:59 18:59 Weight 119 kg Other: Voiding Method Bedpan Diaper Diaper External Catheter # Voids 5 1 2 # Bowel Movements 1 - Labs CBC & Chem 7: 12/12/23 05:15 12/13/23 05:08 Labs: Abnormal Lab Results - Last 24 Hours (Table) 12/12/23 12/12/23 12/13/23 Range/Units 16:47 19:22 05:08 Chloride 108 H (98-107) mmol/L Carbon Dioxide 21 L (22-30) mmol/L BUN 35 H (7-17) mg/dL Creatinine 1.39 H (0.52-1.04) mg/dL Glucose 111 H (74-99) mg/dL POC Glucose (mg/dL) 187 H 179 H (70-110) mg/dL 12/13/23 12/13/23 Range/Units 06:00 11:09 Chloride (98-107) mmol/L Carbon Dioxide (22-30) mmol/L BUN (7-17) mg/dL Creatinine (0.52-1.04) mg/dL Glucose (74-99) mg/dL POC Glucose (mg/dL) 151 H 198 H (70-110) mg/dL
--- NOTE | 2023-12-13 14:57 | P.PN ---
Subjective Progress Note Date: 12/13/23 HISTORY OF PRESENTING ILLNESS 88-year-old female was recently admitted to the hospital because of congestive heart failure and respiratory distress. She was managed with IV antibiotics and was discharged home on Bumex 3 days ago. In [facility] patient started having increased cough and increased shortness of breath due to which she was sent to the hospital again. Patient has chronic lower extremity edema. Morbidly obese, BMI 51, previous history of DVT and pulmonary embolism. Type 2 diabetes, hypertension, hyperlipidemia chronic atrial fibrillation and diastolic heart failure. BUN 31, creatinine 1.3, hemoglobin 9.9 12/12 Patient seen today in follow-up. She continues to have decreased breath sounds/crackles and lower extremity edema. She is currently on Lasix 40 mg IV every 12 hours and was started on spironolactone 12.5 mg daily yesterday. Blood pressure 101/61, heart rate in the 80s, pulse ox 96% on 2 L. Left upper extremity venous Doppler duplex was negative for DVT. 12/13 Patient continues to have lower extremity edema and venous stasis changes. Her breathing is slowly improving. She has been on IV Lasix 40 mg every 12 hours increased to 80 mg every 12 hours by attending. Repeat blood work reveals BUN 35, creatinine 1.39, potassium 4.9. Blood sugar 105/73, heart rate is in the 70s. Patient is currently on O2 at 3 L nasal cannula. PHYSICAL EXAMINATION Vital signs reviewed. Neck: Thick neck difficult to assess as she has elevated JVD Lungs: Reduce inspiratory effort and mild crackles in lung candelaria Cardiac: Irregular pulse,S1-S2, no significant murmurs. Abdomen: Soft nontender. Extremities: 3+ pitting edema lower extremity which is chronic. Neuro: Alert, oritented, ASSESSMENT Acute on chronic HFREF exacerbation . EF 40-45% moderate LVH, Moderate to severe aortic stenosis Chronic lower extremity edema Type II Diabetes CKD stage III Recent COVID-19 infection. Post viral cough History of DVT and pulmonary embolism on anti-cognition Chronic atrial fibrillation Hypertension Dyslipidemia Morbid obesity PLAN Continue Eliquis. She is on 2.5 mg. Because of her BMI would recommended to be 5 mg. Reevaluate tomorrow Continue Lasix IV 80 mg twice a day. Metoprolol 25 mg twice a day, Aldactone 12.5 mg daily, Farxiga 10 mg daily We will intensify heart failure medication further as tolerated. May consider adding metolazone with lasix. Nurse practitioner note has been reviewed, I agree with documented findings and plan of care. Patient was seen and examined. Objective - Vital Signs Vital signs: Vital Signs Temp 98.5 F 12/13/23 08:00 Pulse 76 12/13/23 11:14 Resp 18 12/13/23 08:00 BP 105/73 12/13/23 10:55 Pulse Ox 94 L 12/13/23 08:00 FiO2 Intake & Output 12/12/23 12/13/23 12/13/23 18:59 06:59 18:59 Weight 119 kg Other: Voiding Method Bedpan Diaper Diaper External Catheter # Voids 5 1 2 # Bowel Movements 1 - Labs CBC & Chem 7: 12/12/23 05:15 12/13/23 05:08 Labs: Abnormal Lab Results - Last 24 Hours (Table) 12/12/23 12/12/23 12/13/23 Range/Units 16:47 19:22 05:08 Chloride 108 H (98-107) mmol/L Carbon Dioxide 21 L (22-30) mmol/L BUN 35 H (7-17) mg/dL Creatinine 1.39 H (0.52-1.04) mg/dL Glucose 111 H (74-99) mg/dL POC Glucose (mg/dL) 187 H 179 H (70-110) mg/dL 12/13/23 12/13/23 Range/Units 06:00 11:09 Chloride (98-107) mmol/L Carbon Dioxide (22-30) mmol/L BUN (7-17) mg/dL Creatinine (0.52-1.04) mg/dL Glucose (74-99) mg/dL POC Glucose (mg/dL) 151 H 198 H (70-110) mg/dL
[2023-12-13 16:34] LABS: Glucose,Whole Blood 166 mg/dL (70-110)
[2023-12-13 20:28] LABS: Glucose,Whole Blood 140 mg/dL (70-110)
[2023-12-13] MEDS: FUROSEMIDE 10 MG/ML 10 ML VIAL IV SCH (20:36)
[2023-12-14 05:52] LABS: Glucose,Whole Blood 160 mg/dL (70-110)
[2023-12-14] MEDS: FUROSEMIDE 10 MG/ML 4 ML VIAL IV SCH (08:47)
[2023-12-14 11:39] LABS: Glucose,Whole Blood 150 mg/dL (70-110)
--- NOTE | 2023-12-14 12:14 | XR ---
EXAMINATION TYPE: XR chest 1V portable DATE OF EXAM: 12/14/2023 10:46 AM CLINICAL INDICATION:Female, 88 years old with history of CHF; COMPARISON: Chest radiographs from 12/11/2023. TECHNIQUE: XR chest 1V portable Frontal view of the chest. FINDINGS: Lungs/Pleura: There is no evidence of pleural effusion, focal consolidation, or pneumothorax. Pulmonary vascularity: Pulmonary vascular congestion. Heart/mediastinum: Cardiomediastinal silhouette is enlarged and stable. Musculoskeletal: No acute osseous pathology. Left shoulder arthroplasty with hardware intact. IMPRESSION: Cardiomegaly and mild pulmonary vascular congestion. Correlate with BNP for congestive heart failure.
--- NOTE | 2023-12-14 12:16 | P.PN ---
Subjective Progress Note Date: 12/14/23 HISTORY OF PRESENTING ILLNESS 88-year-old female was recently admitted to the hospital because of congestive heart failure and respiratory distress. She was managed with IV antibiotics and was discharged home on Bumex 3 days ago. In [facility] patient started having increased cough and increased shortness of breath due to which she was sent to the hospital again. Patient has chronic lower extremity edema. Morbidly obese, BMI 51, previous history of DVT and pulmonary embolism. Type 2 diabetes, hypertension, hyperlipidemia chronic atrial fibrillation and diastolic heart failure. BUN 31, creatinine 1.3, hemoglobin 9.9 12/12 Patient seen today in follow-up. She continues to have decreased breath sounds/crackles and lower extremity edema. She is currently on Lasix 40 mg IV every 12 hours and was started on spironolactone 12.5 mg daily yesterday. Blood pressure 101/61, heart rate in the 80s, pulse ox 96% on 2 L. Left upper extremity venous Doppler duplex was negative for DVT. 12/13 Patient continues to have lower extremity edema and venous stasis changes. Her breathing is slowly improving. She has been on IV Lasix 40 mg every 12 hours increased to 80 mg every 12 hours by attending. Repeat blood work reveals BUN 35, creatinine 1.39, potassium 4.9. Blood sugar 105/73, heart rate is in the 70s. Patient is currently on O2 at 3 L nasal cannula. 12/14 Patient is a low blood pressure reading this morning of 79/53 and repeat is at 92/60. Heart rate is in the 70s and 80s. Attending has decreased IV Lasix to 40 mg every 12 hours. Patient appears to have a documented weight loss of 7 kg but urine output has been minimal but patient is urinating in brief. Guajardo catheter has been ordered. Requested evaluation for TAVR procedure but patient does not meet criteria as severe aortic stenosis is necessary to meet criteria. Chest x-ray performed this morning is pending. Lab work for today is pending. Most recent echocardiogram performed on 12/01/2023 revealed moderate LV systolic dysfunction. Moderate to severe aortic stenosis with peak gradient of 48 and mean gradient of 34 meeting criteria for moderate as reviewed by Dr. Ceballos. PHYSICAL EXAMINATION Vital signs reviewed. Neck: Thick neck difficult to assess as she has elevated JVD Lungs: Reduce inspiratory effort and mild crackles in lung candelaria, expiratory wheezing Cardiac: Irregular pulse,S1-S2, no significant murmurs. Abdomen: Soft nontender. Extremities: 3+ pitting edema lower extremity and chronic venous stasis changes. Neuro: Alert, oritented, ASSESSMENT Acute on chronic HFREF exacerbation . EF 40-45% moderate LVH, Moderate aortic stenosis Chronic lower extremity edema Type II Diabetes CKD stage III Recent COVID-19 infection. Post viral cough History of DVT and pulmonary embolism on anti-cognition Chronic atrial fibrillation Hypertension Dyslipidemia Morbid obesity PLAN Continue Eliquis. She is on 2.5 mg. Continue Lasix IV reduced to 40 mg twice a day. Continue metoprolol 25 mg twice a day, Farxiga 10 mg daily Discontinue Aldactone due to hypotension We will intensify heart failure medication further as tolerated. May consider adding metolazone with lasix. Nurse practitioner note has been reviewed, I agree with documented findings and plan of care. Patient was seen and examined. Objective - Vital Signs Vital signs: Vital Signs Temp 97.6 F 12/14/23 07:50 Pulse 54 L 12/14/23 07:50 Resp 18 12/14/23 07:50 BP 79/53 12/14/23 07:50 Pulse Ox 95 12/14/23 07:50 FiO2 Intake & Output 12/13/23 12/14/23 12/14/23 18:59 06:59 18:59 Intake Total 200 Output Total 300 300 Balance -100 -300 Weight 133.5 kg Intake: Oral 200 Output: Urine 300 300 Other: Voiding Method Diaper Diaper External Catheter External Catheter # Voids 2 - Labs CBC & Chem 7: 12/12/23 05:15 12/13/23 05:08 Labs: Abnormal Lab Results - Last 24 Hours (Table) 12/13/23 12/13/23 12/13/23 Range/Units 11:09 16:33 20:23 POC Glucose (mg/dL) 198 H 166 H 140 H (70-110) mg/dL 12/14/23 Range/Units 05:50 POC Glucose (mg/dL) 160 H (70-110) mg/dL
[2023-12-14 12:56] LABS: African American GFR (CKD) 38 (>60 ml/min/1.73 sqM); Anion Gap 7 mmol/L; Blood Urea Nitrogen 36 mg/dL (7-17); Calcium 8.7 mg/dL (8.4-10.2); Carbon Dioxide 23 mmol/L (22-30); Chloride 108 mmol/L (98-107); Glucose 119 mg/dL (74-99); Non-African American GFR(CKD) 33 (>60 ml/min/1.73 sqM); Potassium 4.5 mmol/L (3.5-5.1); Sodium 138 mmol/L (137-145)
--- NOTE | 2023-12-14 13:05 | P.PN ---
Subjective Progress Note Date: 12/14/23 This 88-year-old female patient is being readmitted to the hospital due to concerns of some respiratory distress. While at the alf, the patient was being moved around and she felt slightly more short of breath and for that reason she was brought into the hospital for further investigation. She has a long list of medical problems and comorbidities. She is known to me from previous admissions. She denies having any chest pain. No altered mentation. She has chronic edema lower extremities bilaterally and the patient has been taking diuretics on outpatient basis. Her mobility is limited. No altered mentation. I reviewed the chest x-ray of the chest that shows, thyromegaly and mild pulmonary vascular congestion. She has been morbidly obese with a body mass index of 51.6. She has previous history of DVT and pulmonary embolism. She has diabetes mellitus type 2, hypertension hyperlipidemia and spinal stenosis along with chronic A. fib and diastolic heart failure and chronic veno us stasis edema lower extremities bilaterally. She was taking Bumex on outpatient basis 1 mg daily basis. No fever. No altered mentation. The echoes at 6.7 with a hemoglobin of 9.9. BUN is at 30 with creatinine 1.38 and her renal function stable since her discharge from the hospital. Sodium level is at 138. The patient is seen today 12/12/2023 and follow-up on the regular medical floor. She is currently resting comfortably in bed. Awake and alert in no acute distress. She is maintaining O2 saturation in the 90s on 2 L/m per nasal cannula. She's been afebrile. Hemodynamically stable. She did have some left upper extremity edema. Doppler was negative for DVT. White count 7.4. Hemoglobin 9.1. Platelets 92,000. Sodium 140. Potassium 5.0. Bicarb 22. BUN 81. Creatinine 1.5. Glucose 119. She is continued on bronchodilators. Anticoagulated without this. Remains on IV diuretics. No accurate I&O. The patient is seen today December 13, 2023 and follow-up on the regular medical floor. She is currently resting flat in bed. Awake and alert in no acute distress. She is maintaining O2 saturation in the 90s on 3 L/min per nasal cannula. She continues with lower extremity edema and changes of chronic venous stasis. She remains on DuoNeb ventilations, Pulmicort inhalations. Remains on IV Lasix along with Aldactone. Anticoagulated with Xarelto. No accurate I&O. Sodium 137. Potassium 4.9. Bicarb 21. BUN 35. Creatinine 1.39. Glucose 111. The patient is seen today December 14, 2023 and follow-up on the regular medical floor. She is currently sitting up in bed. Awake and alert in no acute distress. Denies any worsening shortness of breath, cough or congestion. She is maintaining O2 saturations in the 90s on 2 L/min per nasal cannula. She has been afebrile. Hemodynamically stable. X-ray continues to show cardiomegaly with mild pulmonary vascular congestion. No focal consolidation. No pneumothorax. No pleural effusion. Sodium 138. Potassium 4.5. Bicarb 23. BUN 36. Creatinine 1.44. Glucose 119. She remains on IV diuretics. Anti coagulated with Eliquis. Continued on bronchodilators. Objective - Vital Signs Vital signs: Vital Signs Temp 97.6 F 12/14/23 07:50 Pulse 85 12/14/23 10:42 Resp 24 12/14/23 10:42 BP 92/60 12/14/23 10:42 Pulse Ox 98 12/14/23 10:42 FiO2 Intake & Output 12/13/23 12/14/23 12/14/23 18:59 06:59 18:59 Intake Total 200 120 Output Total 300 300 Balance -100 -180 Weight 133.5 kg Intake: Oral 200 120 Output: Urine 300 300 Other: Voiding Method Diaper Diaper Toilet External Catheter External Catheter # Voids 2 - Exam GENERAL EXAM: Alert, morbidly obese, 88-year-old female, on 2 L nasal cannula, comfortable in no distress. HEAD: Normocephalic and atraumatic EYES: Normal reaction of pupils, equal size. NOSE: Clear with pink turbinates. THROAT: No erythema or exudates. NECK: No masses, no JVD. CHEST: No chest wall deformity. LUNGS: Equal air entry with end expiratory wheeze. CVS: S1 and S2 normal with no audible murmur, regular rhythm. No extra heart sounds ABDOMEN: Obese abdomen, no hepatosplenomegaly, active bowel sounds, no guarding or rigidity. SPINE: No scoliosis or deformity SKIN: Left lower extremity erythema and edema CENTRAL NERVOUS SYSTEM: No focal deficits, tone is normal in all 4 extremities. EXTREMITIES: Bilateral lower extremity edema, left greater than right. Changes of chronic venous stasis. Peripheral pulses are intact. - Labs CBC & Chem 7: 12/12/23 05:15 12/14/23 12:22 Labs: Abnormal Lab Results - Last 24 Hours (Table) 12/13/23 12/13/23 12/14/23 Range/Units 16:33 20:23 05:50 Chloride (98-107) mmol/L BUN (7-17) mg/dL Creatinine (0.52-1.04) mg/dL Glucose (74-99) mg/dL POC Glucose (mg/dL) 166 H 140 H 160 H (70-110) mg/dL 12/14/23 12/14/23 Range/Units 11:33 12:22 Chloride 108 H (98-107) mmol/L BUN 36 H (7-17) mg/dL Creatinine 1.44 H (0.52-1.04) mg/dL Glucose 119 H (74-99) mg/dL POC Glucose (mg/dL) 150 H (70-110) mg/dL Assessment and Plan Assessment: Chronic dyspnea without any clear indication that there has been any significant respiratory decompensation since her discharge back to alf Chronic hypoxic respiratory failure, currently on 2 L of oxygen by nasal ca nnula, likely in the base of CHF. No clear indication for pneumonia. Remains on IV diuretics Chronic lower extremity edema with signs of chronic fluid overload, maintained on Bumex on outpatient basis Systolic heart failure with an ejection fraction of 40 to 45%, severe pulmonary hypertension, moderate to severe degree of aortic stenosis Moderate degree of aortic stenosis as evident on the echocardiogram Diabetes mellitus type 2 Chronic kidney disease, stage III Recent infection with COVID-19 infection PCR was negative at time of admission History of osteomyelitis of the left toe Diabetes mellitus type 2 Previous history of DVT and pulmonary embolism, maintained on anticoagulation with Eliquis Paroxysmal atrial fibrillation with a controlled rate and currently on anticoagulants with Eliquis Hyperlipidemia Hypertension Obesity Spinal stenosis and the patient has foot drop and she is unable to relate this point in time Poor overall functional performance based on the above-mentioned multiple comorbidities snf resident Plan: The patient was seen and evaluated Labs and medications reviewed Continue the current treatment plan Remains on IV diuretics Titrate the FiO2 as tolerated I have personally seen and examined the patient, performed the documentation and the assessment and plan as written. Number of minutes spent on the visit: 10.
[2023-12-14 13:28] LABS: Anisocytosis Slight; Basophils % (A) 1 %; Eosinophils # (A) 0.2 k/uL (0-0.7); Eosinophils % (A) 2 %; HCT 31.6 % (34.0-46.0); HGB 9.5 gm/dL (11.4-16.0); Hypochromasia Marked; Lymphocytes # (A) 0.9 k/uL (1.0-4.8); Lymphocytes % (A) 12 %; MCH 27.9 pg (25.0-35.0); MCHC 30.2 g/dL (31.0-37.0); MCV 92.6 fL (80.0-100.0); Monocytes # (A) 0.8 k/uL (0-1.0); Monocytes % (A) 11 %; Neutrophils # (A) 5.6 k/uL (1.3-7.7); Neutrophils % (A) 72 %; Platelet Count 343 k/uL (150-450); Poikilocytosis Slight; RBC 3.41 m/uL (3.80-5.40); RDW 17.9 % (11.5-15.5); WBC 7.8 k/uL (3.8-10.6)
[2023-12-14 13:35] LABS: ALT 13 U/L (4-34); AST 23 U/L (14-36); Albumin 3.3 g/dL (3.5-5.0); Albumin/Globulin Ratio 0.9; Alkaline Phosphatase 86 U/L (38-126); Globulin 3.7 g/dL; Total Bilirubin 0.6 mg/dL (0.2-1.3)
--- NOTE | 2023-12-14 14:05 | P.PN ---
Subjective Progress Note Date: 12/14/23 Chief Complaint: cough/SOB HISTORY OF PRESENT ILLNESS This is an 88-year-old female patient of mine, with past medical history of PE and DVT, morbid obesity, diabetes mellitus type 2, hypertension, hyperlipidemia, history of spinal stenosis status post surgery in [place], history of small bowel obstruction secondary to incarcerated umbilical hernia status post repair of the hernia with resolution of the bowel obstruction, history of atrial fibrillation, history of chronic diastolic heart failure with significant for hypertension and significant venous hypertension both lower extremities and significant edema, patient patient has been almost in a sedentary lifestyle noncompliant with her diet sitting in her wheelchair most of the day, has been on chronic diuretic use , patient was recently discharged from [facility] after she was admitted for acute on chronic systolic heart failure and she was seen by Cardiology and pulmonary and her Echocardiogram showed reduced EF 40-45% with severe Aortic stenosis and mild MR and Aortic aneurysm 4.1 cm, she was discharge 12/06/2021 and she was seen by me yesrterday at [facility] where she was short of breath withy increased weight gain she was discharged on Bumex 1 mg po daily that was increased to bid without any help , so she was sent out to [facility] for acute on chronic systolic heart failure. 12/12: Patient has been seen by cardiology and maintained on same medications. Left upper extremity duplex was negative for DVT. Patient continues to have lower extremity edema more than her baseline and bilateral crackles. Patient is also followed by pulmonary medicine. Blood pressure 101/61, heart rate in the 60s to 80s, pulse ox 91% on 2 L nasal cannula, afebrile. Repeat blood work reveals WBC 7.4, hemoglobin 9.1, platelet count 92. Electrolytes are normal, BUN 30 creatinine 1.5. Blood sugar 119. Capillary blood sugar is [id number]. Patient's appetite seems to be improving. She states she worked with physical therapy by sitting on the edge of the bed for 15 minutes today. 12/13: Patient continues to have fluid overload and lower extremity edema but breathing seems to be improving. She has been on IV Lasix 40 mg every 12 hours. Repeat renal function is BUN 35 creatinine 1.39, potassium 4.9. Blood pressure 105/73, heart rate in the 70s. Patient is currently on 3 L oxygen nasal cannula. Cardiology and pulmonary medicine are following. 12/14: Patient does not appear to have significant improvement. Blood pressure was low this morning with systolic in the 70s. Yesterday we had increased her IV Lasix to 80 mg twice daily. Patient is urinating in her brief and accurate CALEB's are not available. Guajardo catheter will be placed. We will decrease IV Lasix to 40 mg twice daily, cardiology has discontinued Aldactone. Heart rate has been in the 80s, pulse ox 98% on 2 L nasal cannula. Repeat BUN 36 and creatinine 1.44. Hemoglobin is 9.5. REVIEW OF SYSTEMS Constitutional: Reports no fever or chills, no night sweats. positive for weight change. Reports weakness, Reports fatigue, no lethargy, no daytime sleepiness. HEENT: No headache. No blurred vision or double vision, no loss of vision. No dizziness. No nasal drainage or congestion. No epistaxis. No sore throat, hard of hearing Lungs: positive for shortness of breath, positive for dry cough, no sputum production. positive for wheezing. Cardiovascular: No chest pain, positive for lower extremity edema, positive for palpitations, no paroxysmal nocturnal dyspnea. No orthopnea. No lightheadedness or dizziness. No syncopal episodes. Abdominal: No abdominal pain. positive for nausea, no vomiting. No diarrhea. No constipation. No bloody or tarry stools. Reports loss of appetite. Genitourinary: No dysuria, increased frequency, urgency. No urinary retention, positive for urinary incontinence Musculoskeletal: No myalgias. Reports muscle weakness, Reports gait dysfunction, Reports falls. positive for back pain. No neck pain. Integumentary: Reports wound to the left big toe with significant tissue edema, reports lower extremity redness, there is denuded ulcer to the left big toe Neurologic: No aphasia. No facial droop. No change in mentation. No head injury. No headache. No paralysis. No paresthesia. Psychiatric: positive for depression. No anxiety. No mood swings. Endocrine: positive for abnormal blood sugars. positive for weight change. PHYSICAL EXAMINATION Gen: This is an 88-year-old female, sitting up in bed in minimal respiratory distress. HEENT: Head is atraumatic, normocephalic. Pupils equal, round. Sclerae is anicteric, mucous membranes of the mouth are somewhat dry, there is minimal thrush. NECK: Supple. No JVD. No lymphadenopathy. No thyromegaly. LUNGS: Decreased breath sounds at the bases, few rhonchi, minimal expiratory wheezes, no chest wall tenderness, no intercostal retractions. HEART: first heart sound is depressed, second heart sound is normal, irregularly irregular, there is systolic ejection murmur 2/6 located at the left sternal border. ABDOMEN: morbidly obese abdomen, soft nontender nondistended, positive bowel sounds. EXTREMITIES: 2+ bilateral pitting edema to the lower extremities, chronic stasis dermatitis, there is bilateral foot drop. NEUROLOGICAL: Patient is awake, alert and oriented x3. Cranial nerves 2 through 12 are grossly intact significant weakness to both lower extremity his right more than left, bilateral foot drop ASSESSMENT AND PLAN 1. Acute on chronic systolic heart failure. Continue the patient on Lasix decreased to 40 mg IV push every 12 hours, continue patient on metoprolol 25 mg orally twice daily, spironolactone has been discontinued by cardiology, Echocardiogram was done last week showed LVF 40 % with moderate , we will continue with Farxiga 10 mg po daily, continue to monitor electrolytes and renal function 2. Left lower lobe pneumonia. Resolved 3. Chronic atrial fibrillation . Continue metoprolol 25 mg orally twice every day, continue patient on Eliquis 2.5 mg orally twice every day. 4. Anemia of chronic diseases. Stable at this time. 5. History of multiple DVTs and PE on [facility] anticoagulation. Continue eliquis 2.5 mg twice daily. Patient recently underwent [place] filter on November 2019 prior to laminectomy surgery. 6. Valvular heart disease with severe tricuspid regurgitation, mild-mod regurgitation moderate aortic stenosis. Case reviewed by Dr. Ceballos and he has reviewed echocardiogram, patient is actually a moderate aortic stenosis and does not qualify for TAVR procedure. 7. Severe pulmonary hypertension with RVSP 60 mmHg. continue patient on Metoprolol 25 mg orally bid continue patient on Lasix 40 mg IVP twice every day. 8. Hypertension and hypertensive cardiovascular disease. Continue patient on Metoprolol 25 mg po bid, we will continue to monitor BP very closely 9. Hyperlipidemia. Continue atorvastatin 10 mg at bedtime. 10. Diabetes mellitus type 2. Continue patient on Farxiga 10 mg po daily, along with SSI. 11. Spinal stenosis status post laminectomy, with bilateral foot drop 12. Recurrent depression. Continue patient on Effexor 75 mg orally once every day. 13. Gastroesophageal reflux disease and GI prophylaxis. Protonix 40 mg po daily. 14. Thrombocytopenia. Monitor platelets. 15. DVT prophylaxis. Eliquis 2.5 mg orally twice every day. No code. Impression and plan of care have been directed as dictated by the signing physician. India Conway nurse practitioner acting as scribe for signing physician. Objective - Vital Signs Vital signs: Vital Signs Temp 97.6 F 12/14/23 07:50 Pulse 54 L 12/14/23 07:50 Resp 18 12/14/23 07:50 BP 79/53 12/14/23 07:50 Pulse Ox 95 12/14/23 07:50 FiO2 Intake & Output 12/13/23 12/14/23 12/14/23 18:59 06:59 18:59 Intake Total 200 Output Total 300 300 Balance -100 -300 Weight 133.5 kg Intake: Oral 200 Output: Urine 300 300 Other: Voiding Method Diaper Diaper External Catheter External Catheter # Voids 2 - Labs CBC & Chem 7: 12/14/23 12:22 12/14/23 12:22 Labs: Abnormal Lab Results - Last 24 Hours (Table) 12/13/23 12/13/23 12/13/23 Range/Units 11:09 16:33 20:23 POC Glucose (mg/dL) 198 H 166 H 140 H (70-110) mg/dL 12/14/23 Range/Units 05:50 POC Glucose (mg/dL) 160 H (70-110) mg/dL
[2023-12-14 16:49] LABS: Glucose,Whole Blood 125 mg/dL (70-110)
[2023-12-14 21:01] LABS: Glucose,Whole Blood 178 mg/dL (70-110)
[2023-12-14] MEDS: ACETAMINOPHEN TAB 325 MG TAB PO PRN (23:20)
[2023-12-15 05:41] LABS: Glucose,Whole Blood 148 mg/dL (70-110)
[2023-12-15] MEDS ORDERED: AMIODARONE 200 MG TAB PO SCH (09:15)
[2023-12-15] MEDS: bisacodyL 10 MG SUPP RECTAL PRN (09:20)
[2023-12-15] MEDS: FUROSEMIDE 100 MG in SODIUM CHLORIDE 0.9% 90 ML IV SCH (09:53)
[2023-12-15 11:28] LABS: Glucose,Whole Blood 146 mg/dL (70-110)
[2023-12-15 12:23] LABS: BUN/Creat Ratio 21.62 Ratio (12.00-20.00); Blood Urea Nitrogen 34.6 mg/dL (9.0-27.0); Calcium 8.6 mg/dL (8.7-10.3); Carbon Dioxide 19.8 mmol/L (21.6-31.8); Chloride 105 mmol/L (96-109); Glucose 132 mg/dL (70-110); Potassium 4.8 mmol/L (3.5-5.5); Sodium 139 mmol/L (135-145)
--- NOTE | 2023-12-15 14:08 | P.PN ---
Subjective Progress Note Date: 12/15/23 This 88-year-old female patient is being readmitted to the hospital due to concerns of some respiratory distress. While at the [facility], the patient was being moved around and she felt slightly more short of breath and for that reason she was brought into the hospital for further investigation. She has a long list of medical problems and comorbidities. She is known to me from previous admissions. She denies having any chest pain. No altered mentation. She has chronic edema lower extremities bilaterally and the patient has been taking diuretics on outpatient basis. Her mobility is limited. No altered mentation. I reviewed the chest x-ray of the chest that shows, thyromegaly and mild pulmonary vascular congestion. She has been morbidly obese with a body mass index of 51.6. She has previous history of DVT and pulmonary embolism. She has diabetes mellitus type 2, hypertension hyperlipidemia and spinal stenosis along with chronic A. fib and diastolic heart failure and chronic veno us stasis edema lower extremities bilaterally. She was taking Bumex on outpatient basis 1 mg daily basis. No fever. No altered mentation. The echoes at 6.7 with a hemoglobin of 9.9. BUN is at 30 with creatinine 1.38 and her renal function stable since her discharge from the hospital. Sodium level is at 138. The patient is seen today 12/12/2023 and follow-up on the regular medical floor. She is currently resting comfortably in bed. Awake and alert in no acute distress. She is maintaining O2 saturation in the 90s on 2 L/m per nasal cannula. She's been afebrile. Hemodynamically stable. She did have some left upper extremity edema. Doppler was negative for DVT. White count 7.4. Hemoglobin 9.1. Platelets 92,000. Sodium 140. Potassium 5.0. Bicarb 22. BUN 81. Creatinine 1.5. Glucose 119. She is continued on bronchodilators. Anticoagulated without this. Remains on IV diuretics. No accurate I&O. The patient is seen today December 13, 2023 and follow-up on the regular medical floor. She is currently resting flat in bed. Awake and alert in no acute distress. She is maintaining O2 saturation in the 90s on 3 L/min per nasal cannula. She continues with lower extremity edema and changes of chronic venous stasis. She remains on DuoNeb ventilations, Pulmicort inhalations. Remains on IV Lasix along with Aldactone. Anticoagulated with Xarelto. No accurate I&O. Sodium 137. Potassium 4.9. Bicarb 21. BUN 35. Creatinine 1.39. Glucose 111. The patient is seen today December 14, 2023 and follow-up on the regular medical floor. She is currently sitting up in bed. Awake and alert in no acute distress. Denies any worsening shortness of breath, cough or congestion. She is maintaining O2 saturations in the 90s on 2 L/min per nasal cannula. She has been afebrile. Hemodynamically stable. X-ray continues to show cardiomegaly with mild pulmonary vascular congestion. No focal consolidation. No pneumothorax. No pleural effusion. Sodium 138. Potassium 4.5. Bicarb 23. BUN 36. Creatinine 1.44. Glucose 119. She remains on IV diuretics. Anti coagulated with Eliquis. Continued on bronchodilators. The patient is seen today December 15, 2023 in follow-up on the regular medical floor. She is resting comfortably in bed. Awake and alert in no acute distress. Maintaining O2 saturations in the 90s on 3 L/min per nasal cannula. Ssodium 139. Potassium 4.8. Bicarb 20. BUN 35. Creatinine 1.6. Glucose 132. She is continued on bronchodilators. Anticoagulated with Eliquis. She has been initiated on a Lasix drip at 2.5 mg/h. She is awaiting transfer to selective care unit for amiodarone infusion. Objective - Vital Signs Vital signs: Vital Signs Temp 97.7 F 12/15/23 07:51 Pulse 88 12/15/23 12:19 Resp 18 12/15/23 09:20 BP 102/71 12/15/23 07:51 Pulse Ox 99 12/15/23 09:10 FiO2 Intake & Output 12/14/23 12/15/23 12/15/23 18:59 06:59 18:59 Intake Total 120 358 Output Total 1000 800 425 Balance -880 -800 -67 Weight 141 kg Intake: Oral 120 358 Output: Urine 1000 800 425 Other: Voiding Method Toilet Indwelling Catheter Indwelling Catheter # Bowel Movements 1 - Exam GENERAL EXAM: Alert, morbidly obese, 88-year-old female, resting in bed, on 3 L nasal cannula, comfortable in no distress. HEAD: Normocephalic and atraumatic EYES: Normal reaction of pupils, equal size. NOSE: Clear with pink turbinates. THROAT: No erythema or exudates. NECK: No masses, no JVD. CHEST: No chest wall deformity. LUNGS: Equal air entry with end expiratory wheeze. CVS: S1 and S2 normal with no audible murmur, irregular rhythm. No extra heart sounds ABDOMEN: Obese abdomen, no hepatosplenomegaly, active bowel sounds, no guarding or rigidity. SPINE: No scoliosis or deformity SKIN: Left lower extremity erythema and edema CENTRAL NERVOUS SYSTEM: No focal deficits, tone is normal in all 4 extremities. EXTREMITIES: Bilateral lower extremity edema, left greater than right. Changes of chronic venous stasis. Peripheral pulses are intact. - Labs CBC & Chem 7: 12/14/23 12:22 12/15/23 06:28 Labs: Abnormal Lab Results - Last 24 Hours (Table) 12/14/23 12/14/23 12/15/23 Range/Units 16:43 20:58 05:39 Carbon Dioxide (21.6-31.8) mmol/L Anion Gap (4.00-12.00) mmol/L BUN (9.0-27.0) mg/dL Creatinine (0.6-1.5) mg/dL Est GFR (CKD-EPI) (>=60) BUN/Creatinine Ratio (12.00-20.00) Ratio Glucose (70-110) mg/dL POC Glucose (mg/dL) 125 H 178 H 148 H (70-110) mg/dL Calcium (8.7-10.3) mg/dL 12/15/23 12/15/23 Range/Units 06:28 11:26 Carbon Dioxide 19.8 L (21.6-31.8) mmol/L Anion Gap 14.20 H (4.00-12.00) mmol/L BUN 34.6 H (9.0-27.0) mg/dL Creatinine 1.6 H (0.6-1.5) mg/dL Est GFR (CKD-EPI) 31 L (>=60) BUN/Creatinine Ratio 21.62 H (12.00-20.00) Ratio Glucose 132 H (70-110) mg/dL POC Glucose (mg/dL) 146 H (70-110) mg/dL Calcium 8.6 L (8.7-10.3) mg/dL Assessment and Plan Assessment: Acute exacerbation of chronic systolic heart failure with an ejection fraction of 40 to 45%, severe pulmonary hypertension, moderate to severe degree of aortic stenosis Chronic hypoxic respiratory failure, currently on 2 L of oxygen by nasal cannula, likely in the base of CHF. No clear indication for pneumonia. Initiated on a Lasix drip. Chronic lower extremity edema with signs of chronic fluid overload, maintained on Bumex on outpatient basis Chronic dyspnea Moderate degree of aortic stenosis as evident on the echocardiogram Diabetes mellitus type 2 Chronic kidney disease, stage III Recent infection with COVID-19 infection PCR was negative at time of admission History of osteomyelitis of the left toe Diabetes mellitus type 2 Previous history of DVT and pulmonary embolism, maintained on anticoagulation with Eliquis Paroxysmal atrial fibrillation with a controlled rate and currently on anticoagulants with Eliquis Hyperlipidemia Hypertension Obesity Spinal stenosis and the patient has foot drop and she is unable to relate this point in time Poor overall functional performance based on the above-mentioned multiple comorbidities half-way resident Plan: The patient was seen and evaluated Labs and medications reviewed She has been initiated on a Lasix drip at 2.5 mg an hour To be transferred to selective care unit for amiodarone infusion Titrate the FiO2 as tolerated We will continue to follow I have personally seen and examined the patient, performed the documentation and the assessment and plan as written. Number of minutes spent on the visit: 10.
[2023-12-15] MEDS: NA PHOS,M-B/NA PHOS,DI-BA 133 ML ENEMA RECTAL PRN (14:12)
--- NOTE | 2023-12-15 14:26 | P.PN ---
Subjective Progress Note Date: 12/15/23 Chief Complaint: cough/SOB HISTORY OF PRESENT ILLNESS This is an 88-year-old female patient of mine, with past medical history of PE and DVT, morbid obesity, diabetes mellitus type 2, hypertension, hyperlipidemia, history of spinal stenosis status post surgery in [place], history of small bowel obstruction secondary to incarcerated umbilical hernia status post repair of the hernia with resolution of the bowel obstruction, history of atrial fibrillation, history of chronic diastolic heart failure with significant for hypertension and significant venous hypertension both lower extremities and significant edema, patient patient has been almost in a sedentary lifestyle noncompliant with her diet sitting in her wheelchair most of the day, has been on chronic diuretic use , patient was recently discharged from [facility] after she was admitted for acute on chronic systolic heart failure and she was seen by Cardiology and pulmonary and her Echocardiogram showed reduced EF 40-45% with severe Aortic stenosis and mild MR and Aortic aneurysm 4.1 cm, she was discharge 12/06/2021 and she was seen by me yesrterday at [facility] where she was short of breath withy increased weight gain she was discharged on Bumex 1 mg po daily that was increased to bid without any help , so she was sent out to [facility] for acute on chronic systolic heart failure. 12/12: Patient has been seen by cardiology and maintained on same medications. Left upper extremity duplex was negative for DVT. Patient continues to have lower extremity edema more than her baseline and bilateral crackles. Patient is also followed by pulmonary medicine. Blood pressure 101/61, heart rate in the 60s to 80s, pulse ox 91% on 2 L nasal cannula, afebrile. Repeat blood work reveals WBC 7.4, hemoglobin 9.1, platelet count 92. Electrolytes are normal, BUN 30 creatinine 1.5. Blood sugar 119. Capillary blood sugar is [id number]. Patient's appetite seems to be improving. She states she worked with physical therapy by sitting on the edge of the bed for 15 minutes today. 12/13: Patient continues to have fluid overload and lower extremity edema but breathing seems to be improving. She has been on IV Lasix 40 mg every 12 hours. Repeat renal function is BUN 35 creatinine 1.39, potassium 4.9. Blood pressure 105/73, heart rate in the 70s. Patient is currently on 3 L oxygen nasal cannula. Cardiology and pulmonary medicine are following. 12/14: Patient does not appear to have significant improvement. Blood pressure was low this morning with systolic in the 70s. Yesterday we had increased her IV Lasix to 80 mg twice daily. Patient is urinating in her brief and accurate CALEB's are not available. Guajardo catheter will be placed. We will decrease IV Lasix to 40 mg twice daily, cardiology has discontinued Aldactone. Heart rate has been in the 80s, pulse ox 98% on 2 L nasal cannula. Repeat BUN 36 and creatinine 1.44. Hemoglobin is 9.5. 12/15: Case was discussed with Dr. Ceballos this morning and plan is to start patient on Lasix drip and amiodarone, discontinue beta-shawn. Patient will be transferred to the cardiac stepdown unit. Patient complains of not having a bowel movement since Tuesday and to collect suppository and enema been ordered as needed. Patient remains afebrile, heart rate in the 80s and 90s, blood pressure 102/61, pulse ox 96 to 99% on 3 L nasal cannula. Repeat blood work reveals sodium 139, potassium 4.8, BUN 34 and creatinine 1.6. Blood glucose running between 146 and 178. REVIEW OF SYSTEMS Constitutional: Reports no fever or chills, no night sweats. positive for weight change. Reports weakness, Reports fatigue, no lethargy, no daytime sleepiness. HEENT: No headache. No blurred vision or double vision, no loss of vision. No dizziness. No nasal drainage or congestion. No epistaxis. No sore throat, hard of hearing Lungs: positive for shortness of breath, positive for dry cough, no sputum production. positive for wheezing. Cardiovascular: No chest pain, positive for lower extremity edema, positive for palpitations, no paroxysmal nocturnal dyspnea. No orthopnea. No lightheaded ness or dizziness. No syncopal episodes. Abdominal: No abdominal pain. positive for nausea, no vomiting. No diarrhea. No constipation. No bloody or tarry stools. Reports loss of appetite. Genitourinary: No dysuria, increased frequency, urgency. No urinary retention, positive for urinary incontinence Musculoskeletal: No myalgias. Reports muscle weakness, Reports gait dysfunction, Reports falls. positive for back pain. No neck pain. Integumentary: Reports wound to the left big toe with significant tissue edema, reports lower extremity redness, there is denuded ulcer to the left big toe Neurologic: No aphasia. No facial droop. No change in mentation. No head injury. No headache. No paralysis. No paresthesia. Psychiatric: positive for depression. No anxiety. No mood swings. Endocrine: positive for mildly abnormal blood sugars. positive for weight change. PHYSICAL EXAMINATION Gen: This is an 88-year-old female, sitting up in bed in no acute respiratory distress. HEENT: Head is atraumatic, normocephalic. Pupils equal, round. Sclerae is anicteric, mucous membranes of the mouth are somewhat dry, there is minimal thrush. NECK: Supple. No JVD. No lymphadenopathy. No thyromegaly. LUNGS: Decreased breath sounds at the bases, few rhonchi, minimal expiratory wheezes, no chest wall tenderness, no intercostal retractions. HEART: first heart sound is depressed, second heart sound is normal, irregularly irregular, there is systolic ejection murmur 2/6 located at the left sternal border. ABDOMEN: morbidly obese abdomen, soft nontender nondistended, positive bowel sounds. EXTREMITIES: 2+ bilateral pitting edema to the lower extremities, chronic stasis dermatitis, there is bilateral foot drop. NEUROLOGICAL: Patient is awake, alert and oriented x3. Cranial nerves 2 through 12 are grossly intact significant weakness to both lower extremity his right more than left, bilateral foot drop ASSESSMENT AND PLAN 1. Acute on chronic systolic heart failure. Cardiology is planning to transition IV Lasix to Lasix drip, continue to hold spironolactone, discontinue beta-shawn and start patient on amiodarone drip. Echocardiogram was done last week showed LVF 40 % with moderate , we will continue with Farxiga 10 mg po daily, continue to monitor electrolytes and renal function. Patient to be transferred to the cardiac stepdown unit. 2. Left lower lobe pneumonia. Resolved 3. Chronic atrial fibrillation. Metoprolol was discontinued by cardiology and patient started on amiodarone drip, continue patient on Eliquis 2.5 mg orally twice every day. 4. Anemia of chronic diseases. Stable at this time. 5. History of multiple DVTs and PE on [facility] anticoagulation. Continue eliquis 2.5 mg twice daily. Patient recently underwent [place] filter on November 2019 prior to laminectomy surgery. 6. Valvular heart disease with severe tricuspid regurgitation, mild-mod regurgitation moderate aortic stenosis. Case reviewed by Dr. Ceballos and he has reviewed echocardiogram, patient is actually a moderate aortic stenosis and does not qualify for TAVR procedure. 7. Severe pulmonary hypertension with RVSP 60 mmHg. 8. Hypertension and hypertensive cardiovascular disease. 9. Hyperlipidemia. Continue atorvastatin 10 mg at bedtime. 10. Diabetes mellitus type 2. Continue patient on Farxiga 10 mg po daily, along with SSI. 11. Spinal stenosis status post laminectomy, with bilateral foot drop 12. Recurrent depression. Continue patient on Effexor 75 mg orally once every day. 13. Gastroesophageal reflux disease and GI prophylaxis. Protonix 40 mg po daily. 14. Thrombocytopenia. Monitor platelets. 15. DVT prophylaxis. Eliquis 2.5 mg orally twice every day. No code. Impression and plan of care have been directed as dictated by the signing physician. India Conway nurse practitioner acting as scribe for signing physician. Objective - Vital Signs Vital signs: Vital Signs Temp 97.7 F 12/15/23 07:51 Pulse 99 12/15/23 09:20 Resp 18 12/15/23 09:20 BP 102/71 12/15/23 07:51 Pulse Ox 99 12/15/23 09:10 FiO2 Intake & Output 12/14/23 12/15/23 12/15/23 18:59 06:59 18:59 Intake Total 120 358 Output Total 1000 800 425 Balance -880 -800 -67 Weight 141 kg Intake: Oral 120 358 Output: Urine 1000 800 425 Other: Voiding Method Toilet Indwelling Catheter Indwelling Catheter - Labs CBC & Chem 7: 12/14/23 12:22 12/15/23 06:28 Labs: Abnormal Lab Results - Last 24 Hours (Table) 12/14/23 12/14/23 12/14/23 Range/Units 11:33 12:22 12:22 RBC 3.41 L (3.80-5.40) m/uL Hgb 9.5 L (11.4-16.0) gm/dL Hct 31.6 L (34.0-46.0) % MCHC 30.2 L (31.0-37.0) g/dL RDW 17.9 H (11.5-15.5) % Lymphocytes # 0.9 L (1.0-4.8) k/uL Chloride 108 H (98-107) mmol/L BUN 36 H (7-17) mg/dL Creatinine 1.44 H (0.52-1.04) mg/dL Glucose 119 H (74-99) mg/dL POC Glucose (mg/dL) 150 H (70-110) mg/dL Albumin 3.3 L (3.5-5.0) g/dL 12/14/23 12/14/23 12/15/23 Range/Units 16:43 20:58 05:39 RBC (3.80-5.40) m/uL Hgb (11.4-16.0) gm/dL Hct (34.0-46.0) % MCHC (31.0-37.0) g/dL RDW (11.5-15.5) % Lymphocytes # (1.0-4.8) k/uL Chloride (98-107) mmol/L BUN (7-17) mg/dL Creatinine (0.52-1.04) mg/dL Glucose (74-99) mg/dL POC Glucose (mg/dL) 125 H 178 H 148 H (70-110) mg/dL Albumin (3.5-5.0) g/dL
--- NOTE | 2023-12-15 14:30 | P.PN ---
Subjective Progress Note Date: 12/15/23 HISTORY OF PRESENTING ILLNESS 88-year-old female was recently admitted to the hospital because of congestive heart failure and respiratory distress. She was managed with IV antibiotics and was discharged home on Bumex 3 days ago. In detention patient started having increased cough and increased shortness of breath due to which she was sent to the hospital again. Patient has chronic lower extremity edema. Morbidly obese, BMI 51, previous history of DVT and pulmonary embolism. Type 2 diabetes, hypertension, hyperlipidemia chronic atrial fibrillation and diastolic heart failure. BUN 31, creatinine 1.3, hemoglobin 9.9 12/12 Patient seen today in follow-up. She continues to have decreased breath sounds/crackles and lower extremity edema. She is currently on Lasix 40 mg IV every 12 hours and was started on spironolactone 12.5 mg daily yesterday. Blood pressure 101/61, heart rate in the 80s, pulse ox 96% on 2 L. Left upper extremity venous Doppler duplex was negative for DVT. 12/13 Patient continues to have lower extremity edema and venous stasis changes. Her breathing is slowly improving. She has been on IV Lasix 40 mg every 12 hours increased to 80 mg every 12 hours by attending. Repeat blood work reveals BUN 35, creatinine 1.39, potassium 4.9. Blood sugar 105/73, heart rate is in the 70s. Patient is currently on O2 at 3 L nasal cannula. 12/14 Patient is a low blood pressure reading this morning of 79/53 and repeat is at 92/60. Heart rate is in the 70s and 80s. Attending has decreased IV Lasix to 40 mg every 12 hours. Patient appears to have a documented weight loss of 7 kg but urine output has been minimal but patient is urinating in brief. Guajardo catheter has been ordered. Requested evaluation for TAVR procedure but patient does not meet criteria as severe aortic stenosis is necessary to meet criteria. Chest x-ray performed this morning is pending. Lab work for today is pending. Most recent echocardiogram performed on 12/01/2023 revealed moderate LV systolic dysfunction. Moderate to severe aortic stenosis with peak gradient of 48 and mean gradient of 34 meeting criteria for moderate as reviewed by Dr. Ceballos. 12/15 Dr. Ceballos discussed case with Dr. Liu and recommended discontinuing the beta- shawn and IV Lasix and starting the patient on amiodarone bolus and drip as well as Lasix drip at a low dose. Patient's blood pressure has been marginal and no significant improvement with IV Lasix. Recommend blood pressure checks in both arms. Repeat blood work reveals potassium 4.8, BUN 34 creatinine 1.6. Patient has been afebrile, blood pressure 102/71, heart rate in the 80s. Yesterday, Aldactone was discontinued and follow-up was decreased to 25 mg twice daily due to consistently low blood pressure readings. PHYSICAL EXAMINATION Vital signs reviewed. Neck: Thick neck difficult to assess as she has elevated JVD Lungs: Reduce inspiratory effort and mild crackles in lung candelaria, expiratory wheezing Cardiac: Irregular pulse,S1-S2, no significant murmurs. Abdomen: Soft nontender. Extremities: 3+ pitting edema lower extremity and chronic venous stasis changes. Neuro: Alert, oritented, ASSESSMENT Acute on chronic HFREF exacerbation . EF 40-45% moderate LVH, Moderate aortic stenosis Chronic lower extremity edema Pulmonary hypertension Type II Diabetes CKD stage III Recent COVID-19 infection. Post viral cough History of DVT and pulmonary embolism on anti-cognition Chronic atrial fibrillation Hypertension Dyslipidemia Morbid obesity PLAN Continue Eliquis. She is on 2.5 mg. Discontinue IV Lasix and start Lasix drip at 2.5 mg/h Monitor blood pressure closely Discontinue metoprolol and continue Farxiga 10 mg daily Start patient on amiodarone bolus and drip. Nurse practitioner note has been reviewed, I agree with documented findings and plan of care. Patient was seen and examined. Objective - Vital Signs Vital signs: Vital Signs Temp 97.7 F 12/15/23 07:51 Pulse 99 12/15/23 09:20 Resp 18 12/15/23 09:20 BP 102/71 12/15/23 07:51 Pulse Ox 99 12/15/23 09:10 FiO2 Intake & Output 12/14/23 12/15/23 12/15/23 18:59 06:59 18:59 Intake Total 120 358 Output Total 1000 800 425 Balance -880 -800 -67 Weight 141 kg Intake: Oral 120 358 Output: Urine 1000 800 425 Other: Voiding Method Toilet Indwelling Catheter Indwelling Catheter - Labs CBC & Chem 7: 12/14/23 12:22 12/15/23 06:28 Labs: Abnormal Lab Results - Last 24 Hours (Table) 12/14/23 12/14/23 12/14/23 Range/Units 11:33 12:22 12:22 RBC 3.41 L (3.80-5.40) m/uL Hgb 9.5 L (11.4-16.0) gm/dL Hct 31.6 L (34.0-46.0) % MCHC 30.2 L (31.0-37.0) g/dL RDW 17.9 H (11.5-15.5) % Lymphocytes # 0.9 L (1.0-4.8) k/uL Chloride 108 H (98-107) mmol/L BUN 36 H (7-17) mg/dL Creatinine 1.44 H (0.52-1.04) mg/dL Glucose 119 H (74-99) mg/dL POC Glucose (mg/dL) 150 H (70-110) mg/dL Albumin 3.3 L (3.5-5.0) g/dL 12/14/23 12/14/23 12/15/23 Range/Units 16:43 20:58 05:39 RBC (3.80-5.40) m/uL Hgb (11.4-16.0) gm/dL Hct (34.0-46.0) % MCHC (31.0-37.0) g/dL RDW (11.5-15.5) % Lymphocytes # (1.0-4.8) k/uL Chloride (98-107) mmol/L BUN (7-17) mg/dL Creatinine (0.52-1.04) mg/dL Glucose (74-99) mg/dL POC Glucose (mg/dL) 125 H 178 H 148 H (70-110) mg/dL Albumin (3.5-5.0) g/dL
[2023-12-15] MEDS: DEXTROSE 5% IN WATER 100 ML with AMIODARONE 150 MG IV ONE (15:45)
[2023-12-15] MEDS: AMIODARONE 360 MG in DEXTROSE 5% IN WATER 200 ML IV ONE (16:08)
[2023-12-15 16:23] LABS: Glucose,Whole Blood 188 mg/dL (70-110)
[2023-12-15 20:52] LABS: Glucose,Whole Blood 180 mg/dL (70-110)
[2023-12-15] MEDS: AMIODARONE 450 MG in DEXTROSE 5% IN WATER 250 ML IV SCH (21:50)
[2023-12-16 06:19] LABS: Glucose,Whole Blood 150 mg/dL (70-110)
--- NOTE | 2023-12-16 10:14 | CDI ---
Documentation Clarification Form Date: 12/16/2023 09:42:45 AM From: Nica Blevins RN CCDS Phone: [phone] Admit Date: 12/13/2023 04:37:00 PM Patient Name: Sybil Brandt Visit Number: [id number] Discharge Date: ATTENTION: The Clinical Documentation Specialists (CDI) and [facility] Coding Staff appreciate your assistance in clarifying documentation. Please respond to the clarification below the line at the bottom and electronically sign. The CDI & [facility] Coding staff will review the response and follow-up if needed. Please note: Queries are made part of the Legal Health Record. If you have any questions, please contact the author of this message via ITS. Dr. William Fernando Your patient has documentation of chronic respiratory failure 12/15, Pulmonary note. Based on this information and the findings below, is there an additional diagnosis that is clinically appropriate for this patient? History/Risk Factors: 89-year-old female presents to the ED via EMS from [facility] for cough and shortness of breath. Medical History: HTN, DVT, GERD, HLD, DM and kidney disease. ED note, 12/11 Tobacco use: Never Home oxygen: 2L nasal cannula Clinical Indicators: Vital signs: 12/14 19:35 B/P 93/58; HR 71; RR 20; SpO2 92% 2L nasal cannula 12/15 15:30 B/P 123/81; HR 107; RR 22; SpO2 95% 3L nasal cannula 12/16 04:00 B/P 109/55; HR 82; RR 18; SpO2 100% 3L nasal cannula Pulse oximetry: Lung/Breathing assessment Pulmonary note, 12/15: Equal air entry with end expiratory wheeze. Treatment: Breathing Tx: 12/11 Albuterol Inhalation QID ALINA O2: 12/13 12/14 2L nasal cannula 12/15 3L nasal cannula Is there an additional diagnosis that is clinically appropriate for this patient? [x ] Acute on Chronic Respiratory Failure [ ] Chronic Respiratory Failure [ ] Other Diagnosis, please specify [ ] Unable to determine (Template Last Revised: November 2023) MTDD
[2023-12-16] MEDS: Dulaglutide [Trulicity] 1.5 MG SQ SCH (11:04)
[2023-12-16 11:38] LABS: Glucose,Whole Blood 144 mg/dL (70-110)
[2023-12-16] MEDS: AMIODARONE 200 MG TAB PO SCH (12:03)
--- NOTE | 2023-12-16 13:38 | P.PN ---
Subjective Progress Note Date: 12/16/23 HISTORY OF PRESENT ILLNESS This is an 88-year-old female patient of [facility], with past medical history of PE and DVT, morbid obesity, diabetes mellitus type 2, hypertension, hyperlipidemia, history of spinal stenosis status post surgery in [place], history of small bowel obstruction secondary to incarcerated umbilical hernia status post repair of the hernia with resolution of the bowel obstruction, history of atrial fibrillation, history of chronic diastolic heart failure with significant for hypertension and significant venous hypertension both lower extremities and significant edema, patient patient has been almost in a sedentary lifestyle noncompliant with her diet sitting in her wheelchair most of the day, has been on chronic diuretic use , patient was recently discharged from [facility] after she was admitted for acute on chronic systolic heart failure and she was seen by Cardiology and pulmonary and her Echocardiogram showed reduced EF 40-45% with severe Aortic stenosis and mild MR and Aortic aneurysm 4.1 cm, she was discharge 12/06/2021 and she was seen by me yesrterday at [facility] where she was short of breath withy increased weight gain she was discharged on Bumex 1 mg po daily that was increased to bid without any help , so she was sent out to [facility] for acute on chronic systolic heart failure. 12/12: Patient has been seen by cardiology and maintained on same medications. Left upper extremity duplex was negative for DVT. Patient continues to have lower extremity edema more than her baseline and bilateral crackles. Patient is also followed by pulmonary medicine. Blood pressure 101/61, heart rate in the 60s to 80s, pulse ox 91% on 2 L nasal cannula, afebrile. Repeat blood work reveals WBC 7.4, hemoglobin 9.1, platelet count 92. Electrolytes are normal, BUN 30 creatinine 1.5. Blood sugar 119. Capillary blood sugar is [id number]. Patient's appetite seems to be improving. She states she worked with physical therapy by sitting on the edge of the bed for 15 minutes today. 12/13: Patient continues to have fluid overload and lower extremity edema but breathing seems to be improving. She has been on IV Lasix 40 mg every 12 hours. Repeat renal function is BUN 35 creatinine 1.39, potassium 4.9. Blood pressure 105/73, heart rate in the 70s. Patient is currently on 3 L oxygen nasal cannula. Cardiology and pulmonary medicine are following. 12/14: Patient does not appear to have significant improvement. Blood pressure was low this morning with systolic in the 70s. Yesterday we had increased her IV Lasix to 80 mg twice daily. Patient is urinating in her brief and accurate CALEB's are not available. Guajardo catheter will be placed. We will decrease IV Lasix to 40 mg twice daily, cardiology has discontinued Aldactone. Heart rate has been in the 80s, pulse ox 98% on 2 L nasal cannula. Repeat BUN 36 and creatinine 1.44. Hemoglobin is 9.5. 12/15: Case was discussed with Dr. Ceballos this morning and plan is to start patient on Lasix drip and amiodarone, discontinue beta-shawn. Patient will be transferred to the cardiac stepdown unit. Patient complains of not having a bowel movement since Tuesday and to collect suppository and enema been ordered as needed. Patient remains afebrile, heart rate in the 80s and 90s, blood pressure 102/61, pulse ox 96 to 99% on 3 L nasal cannula. Repeat blood work reveals sodium 139, potassium 4.8, BUN 34 and creatinine 1.6. Blood glucose running between 146 and 178. 12/16: Patient sitting up in bed she continues to be somewhat short of breath, she denies any chest pain, but she continues to have some dry cough, she is not spitting up any phlegm, she was started on amiodarone 400 mg twice a day, she is currently on Lasix drip at 5 mg an hour, urine output is marginal, she is continuing to have edema in both lower extremities we will continue to monitor the patient very closely, monitor electrolytes, magnesium and phosphorus. REVIEW OF SYSTEMS Constitutional: Reports no fever or chills, no night sweats. positive for weight change. Reports weakness, Reports fatigue, no lethargy, no daytime sleepiness. HEENT: No headache. No blurred vision or double vision, no loss of vision. No dizziness. No nasal drainage or congestion. No epistaxis. No sore throat, hard of hearing Lungs: positive for shortness of breath, positive for dry cough, no sputum production. positive for wheezing. Cardiovascular: No chest pain, positive for lower extremity edema, positive for palpitations, no paroxysmal nocturnal dyspnea. No orthopnea. No lightheadedness or dizziness. No syncopal episodes. Abdominal: No abdominal pain. positive for nausea, no vomiting. No diarrhea. No constipation. No bloody or tarry stools. Reports loss of appetite. Genitourinary: No dysuria, increased frequency, urgency. No urinary retention, positive for urinary incontinence Musculoskeletal: No myalgias. Reports muscle weakness, Reports gait dysfuncti on, Reports falls. positive for back pain. No neck pain. Integumentary: Reports wound to the left big toe with significant tissue edema, reports lower extremity redness, there is denuded ulcer to the left big toe Neurologic: No aphasia. No facial droop. No change in mentation. No head injury. No headache. No paralysis. No paresthesia. Psychiatric: positive for depression. No anxiety. No mood swings. Endocrine: positive for mildly abnormal blood sugars. positive for weight change. PHYSICAL EXAMINATION Gen: This is an 88-year-old female, sitting up in bed in no acute respiratory distress. HEENT: Head is atraumatic, normocephalic. Pupils equal, round. Sclerae is anicteric, mucous membranes of the mouth are somewhat dry, there is minimal thrush. NECK: Supple. No JVD. No lymphadenopathy. No thyromegaly. LUNGS: Decreased breath sounds at the bases, few rhonchi, minimal expiratory wheezes, no chest wall tenderness, no intercostal retractions. HEART: first heart sound is depressed, second heart sound is normal, irregularly irregular, there is systolic ejection murmur 2/6 located at the left sternal border. ABDOMEN: morbidly obese abdomen, soft nontender nondistended, positive bowel sounds. EXTREMITIES: 2+ bilateral pitting edema to the lower extremities, chronic stasis dermatitis, there is bilateral foot drop. NEUROLOGICAL: Patient is awake, alert and oriented x3. Cranial nerves 2 through 12 are grossly intact significant weakness to both lower extremity his right more than left, bilateral foot drop ASSESSMENT AND PLAN 1. Acute on chronic systolic heart failure. Cardiology is planning to transition IV Lasix to Lasix drip, continue to hold spironolactone, continue amiodarone 400 mg orally twice every day.. Echocardiogram was done last week showed LVF 40 % with moderate , we will continue with Farxiga 10 mg po daily, continue to monitor electrolytes and renal function. 2. Left lower lobe pneumonia. Resolved 3. Chronic atrial fibrillation. Metoprolol was discontinued by cardiology and patient started on amiodarone drip, continue patient on Eliquis 2.5 mg orally twice every day. 4. Anemia of chronic diseases. Stable at this time. 5. History of multiple DVTs and PE on termite control servicer anticoagulation. Continue eliquis 2.5 mg twice daily. Patient recently underwent [place] filter on November 2019 prior to laminectomy surgery. 6. Valvular heart disease with severe tricuspid regurgitation, mild-mod regurgitation moderate aortic stenosis. Case reviewed by Dr. Ceballos and he has reviewed echocardiogram, patient is actually a moderate aortic stenosis and does not qualify for TAVR procedure. 7. Severe pulmonary hypertension with RVSP 60 mmHg. 8. Hypertension and hypertensive cardiovascular disease. 9. Hyperlipidemia. Continue atorvastatin 10 mg at bedtime. 10. Diabetes mellitus type 2. Continue patient on Farxiga 10 mg po daily, along with SSI. 11. Spinal stenosis status post laminectomy, with bilateral foot drop 12. Recurrent depression. Continue patient on Effexor 75 mg orally once every day. 13. Gastroesophageal reflux disease and GI prophylaxis. Protonix 40 mg po daily. 14. Thrombocytopenia. Monitor platelets. 15. DVT prophylaxis. Eliquis 2.5 mg orally twice every day. 16. Medical debility. Physical therapy evaluation. 17. No code. 18. Poor prognosis. Objective - Vital Signs Vital signs: Vital Signs Temp 97.9 F 12/16/23 08:45 Pulse 85 12/16/23 11:29 Resp 18 12/16/23 08:45 BP 104/56 12/16/23 08:45 Pulse Ox 97 12/16/23 08:45 FiO2 Intake & Output 12/15/23 12/16/23 12/16/23 18:59 06:59 18:59 Intake Total 476 Output Total 725 525 275 Balance -249 -525 -275 Weight 121.5 kg Intake: Oral 476 Output: Urine 725 525 275 Other: Voiding Method Indwelling Catheter Indwelling Catheter # Bowel Movements 1 2 - Labs CBC & Chem 7: 12/14/23 12:22 12/15/23 06:28 Labs: Abnormal Lab Results - Last 24 Hours (Table) 12/15/23 12/15/23 12/16/23 Range/Units 16:22 20:32 06:18 POC Glucose (mg/dL) 188 H 180 H 150 H (70-110) mg/dL 12/16/23 Range/Units 11:37 POC Glucose (mg/dL) 144 H (70-110) mg/dL
--- NOTE | 2023-12-16 13:45 | P.PN ---
Subjective HISTORY OF PRESENT ILLNESS: 88-year-old female was recently admitted to the hospital because of congestive heart failure and respiratory distress. She was managed with IV antibiotics and was discharged home on Bumex 3 days ago. In residential patient started having increased cough and increased shortness of breath due to which she was sent to the hospital again. Patient has chronic lower extremity edema. Morbidly obese, BMI 51, previous h istory of DVT and pulmonary embolism. Type 2 diabetes, hypertension, hyperlipidemia chronic atrial fibrillation and diastolic heart failure. BUN 31, creatinine 1.3, hemoglobin 9.9 12/12 Patient seen today in follow-up. She continues to have decreased breath sounds/crackles and lower extremity edema. She is currently on Lasix 40 mg IV every 12 hours and was started on spironolactone 12.5 mg daily yesterday. Blood pressure 101/61, heart rate in the 80s, pulse ox 96% on 2 L. Left upper extremity venous Doppler duplex was negative for DVT. 12/13 Patient continues to have lower extremity edema and venous stasis changes. Her breathing is slowly improving. She has been on IV Lasix 40 mg every 12 hours increased to 80 mg every 12 hours by attending. Repeat blood work reveals BUN 35, creatinine 1.39, potassium 4.9. Blood sugar 105/73, heart rate is in the 70s. Patient is currently on O2 at 3 L nasal cannula. 12/14 Patient is a low blood pressure reading this morning of 79/53 and repeat is at 92/60. Heart rate is in the 70s and 80s. Attending has decreased IV Lasix to 40 mg every 12 hours. Patient appears to have a documented weight loss of 7 kg but urine output has been minimal but patient is urinating in brief. Guajardo catheter has been ordered. Requested evaluation for TAVR procedure but patient does not meet criteria as severe aortic stenosis is necessary to meet criteria. Chest x-ray performed this morning is pending. Lab work for today is pending. Most recent echocardiogram performed on 12/01/2023 revealed moderate LV systolic dysfunction. Moderate to severe aortic stenosis with peak gradient of 48 and mean gradient of 34 meeting criteria for moderate as reviewed by Dr. Ceballos. 12/15 Dr. Ceballos discussed case with Dr. Liu and recommended discontinuing the beta- shawn and IV Lasix and starting the patient on amiodarone bolus and drip as well as Lasix drip at a low dose. Patient's blood pressure has been marginal and no significant improvement with IV Lasix. Recommend blood pressure checks in both arms. Repeat blood work reveals potassium 4.8, BUN 34 creatinine 1.6. Patient has been afebrile, blood pressure 102/71, heart rate in the 80s. Yeste rday, Aldactone was discontinued and follow-up was decreased to 25 mg twice daily due to consistently low blood pressure readings. December 16, 2023 Patient examined this morning at the bedside. Patient continues to report mild shortness of breath. She denies chest pain or pressure. Telemetry reveals atrial fibrillation with heart in the 80s. She remains on IV Amio. She also remains on a Lasix drip at 2.5 mg an hour. Blood pressure is currently stable. PHYSICAL EXAM: VITAL SIGNS: Reviewed. GENERAL: Well-developed in no acute distress. NECK: Supple. No JVD or thyromegaly LUNGS: Respirations even and unlabored. Lungs diminished bilaterally HEART: Irregular rate and rhythm. S1 and S2 heard. Systolic murmur noted. EXTREMITIES: Normal range of motion. No clubbing or cyanosis. Peripheral pulses intact. No lower extremity edema ASSESSMENT: Acute on chronic HFREF exacerbation . EF 40-45% moderate LVH Moderate aortic stenosis Chronic lower extremity edema Pulmonary hypertension Type II Diabetes CKD stage III Recent COVID-19 infection. Post viral cough History of DVT and pulmonary embolism on anticoagulation Chronic atrial fibrillation Hypertension Dyslipidemia Morbid obesity PLAN: Discontinue IV amiodarone. Begin oral amiodarone 400 mg to twice a day Increase Lasix drip to 5 mg an hour Continue to monitor blood pressure Continue to monitor kidney function Further recommendations pending patient course Nurse practitioner note has been reviewed by physician. Signing provider agrees with the documented findings, assessment, and plan of care documented by PRESSURE DISPATCHER as a scribe. Objective - Vital Signs Vital signs: Vital Signs Temp 97.9 F 12/16/23 08:45 Pulse 85 12/16/23 11:29 Resp 18 12/16/23 08:45 BP 104/56 12/16/23 08:45 Pulse Ox 97 12/16/23 08:45 FiO2 Intake & Output 12/15/23 12/16/23 12/16/23 18:59 06:59 18:59 Intake Total 476 Output Total 126 525 275 Balance -249 -525 -275 Weight 121.5 kg Intake: Oral 476 Output: Urine 083 525 981 Other: Voiding Method Indwelling Catheter Indwelling Catheter # Bowel Movements 1 2 - Labs CBC & Chem 7: 12/14/23 12:22 12/15/23 06:28 Labs: Abnormal Lab Results - Last 24 Hours (Table) 12/15/23 12/15/23 12/16/23 Range/Units 16:22 20:32 06:18 POC Glucose (mg/dL) 188 H 180 H 150 H (70-110) mg/dL 12/16/23 Range/Units 11:37 POC Glucose (mg/dL) 144 H (70-110) mg/dL
--- NOTE | 2023-12-16 16:05 | P.PN ---
Subjective Progress Note Date: 12/16/23 This 88-year-old female patient is being readmitted to the hospital due to concerns of some respiratory distress. While at the half-way, the patient was being moved around and she felt slightly more short of breath and for that reason she was brought into the hospital for further investigation. She has a long list of medical problems and comorbidities. She is known to me from previous admissions. She denies having any chest pain. No altered mentation. She has chronic edema lower extremities bilaterally and the patient has been taking diuretics on outpatient basis. Her mobility is limited. No altered mentation. I reviewed the chest x-ray of the chest that shows, thyromegaly and mild pulmonary vascular congestion. She has been morbidly obese with a body mass index of 51.6. She has previous history of DVT and pulmonary embolism. She has diabetes mellitus type 2, hypertension hyperlipidemia and spinal stenosis along with chronic A. fib and diastolic heart failure and chronic veno us stasis edema lower extremities bilaterally. She was taking Bumex on outpatient basis 1 mg daily basis. No fever. No altered mentation. The echoes at 6.7 with a hemoglobin of 9.9. BUN is at 30 with creatinine 1.38 and her renal function stable since her discharge from the hospital. Sodium level is at 138. The patient is seen today 12/12/2023 and follow-up on the regular medical floor. She is currently resting comfortably in bed. Awake and alert in no acute distress. She is maintaining O2 saturation in the 90s on 2 L/m per nasal cannula. She's been afebrile. Hemodynamically stable. She did have some left upper extremity edema. Doppler was negative for DVT. White count 7.4. Hemoglobin 9.1. Platelets 92,000. Sodium 140. Potassium 5.0. Bicarb 22. BUN 81. Creatinine 1.5. Glucose 119. She is continued on bronchodilators. Anticoagulated without this. Remains on IV diuretics. No accurate I&O. The patient is seen today December 13, 2023 and follow-up on the regular medical floor. She is currently resting flat in bed. Awake and alert in no acute distress. She is maintaining O2 saturation in the 90s on 3 L/min per nasal cannula. She continues with lower extremity edema and changes of chronic venous stasis. She remains on DuoNeb ventilations, Pulmicort inhalations. Remains on IV Lasix along with Aldactone. Anticoagulated with Xarelto. No accurate I&O. Sodium 137. Potassium 4.9. Bicarb 21. BUN 35. Creatinine 1.39. Glucose 111. The patient is seen today December 14, 2023 and follow-up on the regular medical floor. She is currently sitting up in bed. Awake and alert in no acute distress. Denies any worsening shortness of breath, cough or congestion. She is maintaining O2 saturations in the 90s on 2 L/min per nasal cannula. She has been afebrile. Hemodynamically stable. X-ray continues to show cardiomegaly with mild pulmonary vascular congestion. No focal consolidation. No pneumothorax. No pleural effusion. Sodium 138. Potassium 4.5. Bicarb 23. BUN 36. Creatinine 1.44. Glucose 119. She remains on IV diuretics. Anti coagulated with Eliquis. Continued on bronchodilators. The patient is seen today December 15, 2023 in follow-up on the regular medical floor. She is resting comfortably in bed. Awake and alert in no acute distress. Maintaining O2 saturations in the 90s on 3 L/min per nasal cannula. Ssodium 139. Potassium 4.8. Bicarb 20. BUN 35. Creatinine 1.6. Glucose 132. She is continued on bronchodilators. Anticoagulated with Eliquis. She has been initiated on a Lasix drip at 2.5 mg/h. She is awaiting transfer to selective care unit for amiodarone infusion. The patient is seen today December 16, 2023 and follow-up on the selective care unit. She was transferred here from the regular medical floor due to atrial fibrillation with rapid ventricular response. Her rate is better controlled to day. She is maintaining good O2 saturations in the 90s on 3 L/min per nasal cannula. She remains on a Lasix drip at 2.5 mg/h. Currently in a negative balance. Guajardo catheter in place. Glucose 144. She has been transitioned to oral amiodarone. She is anticoagulated with Eliquis. She continues on bronchodilators. Objective - Vital Signs Vital signs: Vital Signs Temp 97.9 F 12/16/23 08:45 Pulse 80 12/16/23 15:51 Resp 18 12/16/23 14:00 BP 104/56 01/26/24 08:45 Pulse Ox 97 12/16/23 08:45 FiO2 Intake & Output 12/15/23 12/16/23 12/16/23 18:59 06:59 18:59 Intake Total 476 Output Total 725 525 275 Balance -249 -525 -275 Weight 121.5 kg Intake: Oral 476 Output: Urine 724 525 275 Other: Voiding Method Indwelling Catheter Indwelling Catheter Indwelling Catheter # Bowel Movements 1 2 - Exam GENERAL EXAM: Alert, morbidly obese, 88-year-old female, on 3 L nasal cannula, in no distress. HEAD: Normocephalic and atraumatic EYES: Normal reaction of pupils, equal size. NOSE: Clear with pink turbinates. THROAT: No erythema or exudates. NECK: No masses, no JVD. CHEST: No chest wall deformity. LUNGS: Equal air entry with end expiratory wheeze. CVS: S1 and S2 normal with no audible murmur, regular rhythm. No extra heart sounds ABDOMEN: Obese abdomen, no hepatosplenomegaly, active bowel sounds, no guarding or rigidity. SPINE: No scoliosis or deformity SKIN: Left lower extremity erythema and edema CENTRAL NERVOUS SYSTEM: No focal deficits, tone is normal in all 4 extremities. EXTREMITIES: Bilateral lower extremity edema, left greater than right. Changes of chronic venous stasis. Peripheral pulses are intact. - Labs CBC & Chem 7: 12/14/23 12:22 12/15/23 06:28 Labs: Abnormal Lab Results - Last 24 Hours (Table) 12/15/23 12/15/23 12/16/23 Range/Units 16:22 20:32 06:18 POC Glucose (mg/dL) 188 H 180 H 150 H (70-110) mg/dL 12/16/23 Range/Units 11:37 POC Glucose (mg/dL) 144 H (70-110) mg/dL Assessment and Plan Assessment: Acute exacerbation of chronic systolic heart failure with an ejection fraction of 40 to 45%, severe pulmonary hypertension, moderate to severe degree of aortic stenosis Chronic hypoxic respiratory failure, currently on 2 L of oxygen by nasal cannula, likely in the base of CHF. No clear indication for pneumonia. Initiated on a Lasix drip. Chronic lower extremity edema with signs of chronic fluid overload, maintained on Bumex on outpatient basis Chronic dyspnea Moderate degree of aortic stenosis as evident on the echocardiogram Diabetes mellitus type 2 Chronic kidney disease, stage III Recent infection with COVID-19 infection PCR was negative at time of admission History of osteomyelitis of the left toe Diabetes mellitus type 2 Previous history of DVT and pulmonary embolism, maintained on anticoagulation with Eliquis Paroxysmal atrial fibrillation with a controlled rate and currently on anticoagulants with Eliquis Hyperlipidemia Hypertension Obesity Spinal stenosis and the patient has foot drop and she is unable to relate this point in time Poor overall functional performance based on the above-mentioned multiple comorbidities intermediate resident Plan: The patient was seen and evaluated Labs and medications reviewed Continued on a Lasix drip Guajardo catheter remains in place Anticoagulated with Eliquis, transitioned to oral amiodarone Titrate the FiO2 as tolerated We will continue to follow I have personally seen and examined the patient, performed the documentation and the assessment and plan as written. Number of minutes spent on the visit: 10.
[2023-12-16 20:32] LABS: Glucose,Whole Blood 167 mg/dL (70-110)
[2023-12-17 06:15] LABS: Glucose,Whole Blood 149 mg/dL (70-110)
[2023-12-17 09:23] LABS: Anisocytosis Slight; Basophils # (A) 0.1 k/uL (0-0.2); Basophils % (A) 1 %; Eosinophils # (A) 0.2 k/uL (0-0.7); Eosinophils % (A) 3 %; HCT 30.3 % (34.0-46.0); HGB 8.7 gm/dL (11.4-16.0); Hypochromasia Marked; Lymphocytes # (A) 0.8 k/uL (1.0-4.8); Lymphocytes % (A) 14 %; MCH 26.5 pg (25.0-35.0); MCHC 28.7 g/dL (31.0-37.0); MCV 92.2 fL (80.0-100.0); Mean Platelet Volume 11.3; Monocytes # (A) 0.6 k/uL (0-1.0); Monocytes % (A) 10 %; Neutrophils # (A) 4.2 k/uL (1.3-7.7); Neutrophils % (A) 70 %; Poikilocytosis Slight; RBC 3.29 m/uL (3.80-5.40); RDW 17.8 % (11.5-15.5)
[2023-12-17 09:50] LABS: ALT 14 U/L (4-34); AST 19 U/L (14-36); African American GFR (CKD) 39 (>60 ml/min/1.73 sqM); Albumin 3.1 g/dL (3.5-5.0); Alkaline Phosphatase 86 U/L (38-126); Anion Gap 9 mmol/L; Blood Urea Nitrogen 32 mg/dL (7-17); Calcium 8.3 mg/dL (8.4-10.2); Carbon Dioxide 24 mmol/L (22-30); Chloride 105 mmol/L (98-107); Glucose 197 mg/dL (74-99); Non-African American GFR(CKD) 34 (>60 ml/min/1.73 sqM); Potassium 4.1 mmol/L (3.5-5.1); Sodium 138 mmol/L (137-145); Total Bilirubin 0.6 mg/dL (0.2-1.3); Total Protein 6.5 g/dL (6.3-8.2)
[2023-12-17 11:28] LABS: Glucose,Whole Blood 172 mg/dL (70-110)
--- NOTE | 2023-12-17 12:22 | P.PN ---
Subjective HISTORY OF PRESENT ILLNESS: 88-year-old female was recently admitted to the hospital because of congestive heart failure and respiratory distress. She was managed with IV antibiotics and was discharged home on Bumex 3 days ago. In group home patient started having increased cough and increased shortness of breath due to which she was sent to the hospital again. Patient has chronic lower extremity edema. Morbidly obese, BMI 51, previous h istory of DVT and pulmonary embolism. Type 2 diabetes, hypertension, hyperlipidemia chronic atrial fibrillation and diastolic heart failure. BUN 31, creatinine 1.3, hemoglobin 9.9 12/12 Patient seen today in follow-up. She continues to have decreased breath sounds/crackles and lower extremity edema. She is currently on Lasix 40 mg IV every 12 hours and was started on spironolactone 12.5 mg daily yesterday. Blood pressure 101/61, heart rate in the 80s, pulse ox 96% on 2 L. Left upper extremity venous Doppler duplex was negative for DVT. 12/13 Patient continues to have lower extremity edema and venous stasis changes. Her breathing is slowly improving. She has been on IV Lasix 40 mg every 12 hours increased to 80 mg every 12 hours by attending. Repeat blood work reveals BUN 35, creatinine 1.39, potassium 4.9. Blood sugar 105/73, heart rate is in the 70s. Patient is currently on O2 at 3 L nasal cannula. 12/14 Patient is a low blood pressure reading this morning of 79/53 and repeat is at 92/60. Heart rate is in the 70s and 80s. Attending has decreased IV Lasix to 40 mg every 12 hours. Patient appears to have a documented weight loss of 7 kg but urine output has been minimal but patient is urinating in brief. Guajardo catheter has been ordered. Requested evaluation for TAVR procedure but patient does not meet criteria as severe aortic stenosis is necessary to meet criteria. Chest x-ray performed this morning is pending. Lab work for today is pending. Most recent echocardiogram performed on 12/01/2023 revealed moderate LV systolic dysfunction. Moderate to severe aortic stenosis with peak gradient of 48 and mean gradient of 34 meeting criteria for moderate as reviewed by Dr. Ceballos. 12/15 Dr. Ceballos discussed case with Dr. Liu and recommended discontinuing the beta- shawn and IV Lasix and starting the patient on amiodarone bolus and drip as well as Lasix drip at a low dose. Patient's blood pressure has been marginal and no significant improvement with IV Lasix. Recommend blood pressure checks in both arms. Repeat blood work reveals potassium 4.8, BUN 34 creatinine 1.6. Patient has been afebrile, blood pressure 102/71, heart rate in the 80s. Yeste rday, Aldactone was discontinued and follow-up was decreased to 25 mg twice daily due to consistently low blood pressure readings. December 16, 2023 Patient examined this morning at the bedside. Patient continues to report mild shortness of breath. She denies chest pain or pressure. Telemetry reveals atrial fibrillation with heart in the 80s. She remains on IV Amio. She also remains on a Lasix drip at 2.5 mg an hour. Blood pressure is currently stable. December 17, 2023 Patient examined this morning at the bedside. Patient denies chest pain or pressure. She reports improvement in her shortness of breath. She remains on a Lasix drip at 5 mg an hour. Creatinine today 1.42. Blood pressure is stable. PHYSICAL EXAM: VITAL SIGNS: Reviewed. GENERAL: Well-developed in no acute distress. NECK: Supple. No JVD or thyromegaly LUNGS: Respirations even and unlabored. Lungs diminished bilaterally HEART: Irregular rate and rhythm. S1 and S2 heard. Systolic murmur noted. EXTREMITIES: Normal range of motion. No clubbing or cyanosis. Peripheral pulses intact. No lower extremity edema ASSESSMENT: Acute on chronic HFREF exacerbation . EF 40-45% moderate LVH Moderate aortic stenosis Chronic lower extremity edema Pulmonary hypertension Type II Diabetes CKD stage III Recent COVID-19 infection. Post viral cough History of DVT and pulmonary embolism on anticoagulation Chronic atrial fibrillation Hypertension Dyslipidemia Morbid obesity PLAN: Continue IV Lasix drip at 5 mg an hour Daily weights, accurate intake and output, and monitoring of kidney function Continue to monitor blood pressure Further recommendations pending patient course Nurse practitioner note has been reviewed by physician. Signing provider agrees with the documented findings, assessment, and plan of care documented by ACCOUNTING RECONCILIATION CLERK as a scribe. Objective - Vital Signs Vital signs: Vital Signs Temp 98.1 F 12/17/23 09:10 Pulse 86 12/17/23 09:10 Resp 17 12/17/23 09:10 BP 93/61 12/17/23 09:10 Pulse Ox 97 01/27/24 09:10 FiO2 Intake & Output 12/16/23 12/17/23 12/17/23 18:59 06:59 18:59 Intake Total 301.542 540 118 Output Total 500 650 Balance -198.458 -110 118 Weight 146 kg Intake: Intake, IV Titration 61.542 Amount Furosemide 100 mg In 61.542 Sodium Chloride 0.9% 90 ml @ 5 MG/HR 5 mls/hr IV .Q20H [facility] Rx#:[id number] Oral 240 540 118 Output: Urine 500 650 Other: Voiding Method Indwelling Catheter Indwelling Catheter Indwelling Catheter - Labs CBC & Chem 7: 12/17/23 09:03 12/17/23 09:03 Labs: Abnormal Lab Results - Last 24 Hours (Table) 12/16/23 12/17/23 12/17/23 Range/Units 20:31 06:14 09:03 RBC (3.80-5.40) m/uL Hgb (11.4-16.0) gm/dL Hct (34.0-46.0) % MCHC (31.0-37.0) g/dL RDW (11.5-15.5) % BUN 32 H (7-17) mg/dL Creatinine 1.42 H (0.52-1.04) mg/dL Glucose 197 H (74-99) mg/dL POC Glucose (mg/dL) 167 H 149 H (70-110) mg/dL Calcium 8.3 L (8.4-10.2) mg/dL Albumin 3.1 L (3.5-5.0) g/dL 12/17/23 12/17/23 Range/Units 09:03 11:27 RBC 3.29 L (3.80-5.40) m/uL Hgb 8.7 L (11.4-16.0) gm/dL Hct 30.3 L (34.0-46.0) % MCHC 28.7 L (31.0-37.0) g/dL RDW 17.8 H (11.5-15.5) % BUN (7-17) mg/dL Creatinine (0.52-1.04) mg/dL Glucose (74-99) mg/dL POC Glucose (mg/dL) 172 H (70-110) mg/dL Calcium (8.4-10.2) mg/dL Albumin (3.5-5.0) g/dL
--- NOTE | 2023-12-17 13:06 | P.PN ---
Subjective Progress Note Date: 12/17/23 HISTORY OF PRESENT ILLNESS This is an 88-year-old female patient of [facility], with past medical history of PE and DVT, morbid obesity, diabetes mellitus type 2, hypertension, hyperlipidemia, history of spinal stenosis status post surgery in [place], history of small bowel obstruction secondary to incarcerated umbilical hernia status post repair of the hernia with resolution of the bowel obstruction, history of atrial fibrillation, history of chronic diastolic heart failure with significant for hypertension and significant venous hypertension both lower extremities and significant edema, patient patient has been almost in a sedentary lifestyle noncompliant with her diet sitting in her wheelchair most of the day, has been on chronic diuretic use , patient was recently discharged from [facility] after she was admitted for acute on chronic systolic heart failure and she was seen by Cardiology and pulmonary and her Echocardiogram showed reduced EF 40-45% with severe Aortic stenosis and mild MR and Aortic aneurysm 4.1 cm, she was discharge 12/06/2021 and she was seen by me yesrterday at [facility] where she was short of breath withy increased weight gain she was discharged on Bumex 1 mg po daily that was increased to bid without any help , so she was sent out to [facility] for acute on chronic systolic heart failure. 12/12: Patient has been seen by cardiology and maintained on same medications. Left upper extremity duplex was negative for DVT. Patient continues to have lower extremity edema more than her baseline and bilateral crackles. Patient is also followed by pulmonary medicine. Blood pressure 101/61, heart rate in the 60s to 80s, pulse ox 91% on 2 L nasal cannula, afebrile. Repeat blood work reveals WBC 7.4, hemoglobin 9.1, platelet count 92. Electrolytes are normal, BUN 30 creatinine 1.5. Blood sugar 119. Capillary blood sugar is [id number]. Patient's appetite seems to be improving. She states she worked with physical therapy by sitting on the edge of the bed for 15 minutes today. 12/13: Patient continues to have fluid overload and lower extremity edema but breathing seems to be improving. She has been on IV Lasix 40 mg every 12 hours. Repeat renal function is BUN 35 creatinine 1.39, potassium 4.9. Blood pressure 105/73, heart rate in the 70s. Patient is currently on 3 L oxygen nasal cannula. Cardiology and pulmonary medicine are following. 12/14: Patient does not appear to have significant improvement. Blood pressure was low this morning with systolic in the 70s. Yesterday we had increased her IV Lasix to 80 mg twice daily. Patient is urinating in her brief and accurate CALEB's are not available. Guajardo catheter will be placed. We will decrease IV Lasix to 40 mg twice daily, cardiology has discontinued Aldactone. Heart rate has been in the 80s, pulse ox 98% on 2 L nasal cannula. Repeat BUN 36 and creatinine 1.44. Hemoglobin is 9.5. 12/15: Case was discussed with Dr. Ceballos this morning and plan is to start patient on Lasix drip and amiodarone, discontinue beta-shawn. Patient will be transferred to the cardiac stepdown unit. Patient complains of not having a bowel movement since Tuesday and to collect suppository and enema been ordered as needed. Patient remains afebrile, heart rate in the 80s and 90s, blood pressure 102/61, pulse ox 96 to 99% on 3 L nasal cannula. Repeat blood work reveals sodium 139, potassium 4.8, BUN 34 and creatinine 1.6. Blood glucose running between 146 and 178. 12/16: Patient sitting up in bed she continues to be somewhat short of breath, she denies any chest pain, but she continues to have some dry cough, she is not spitting up any phlegm, she was started on amiodarone 400 mg twice a day, she is currently on Lasix drip at 5 mg an hour, urine output is marginal, she is continuing to have edema in both lower extremities we will continue to monitor the patient very closely, monitor electrolytes, magnesium and phosphorus. 12/17: Patient sitting up in bed she is feeling better today, she is less short of breath, she had an episode of epistaxis yesterday due to dryness because of her oxygen, she continues to be on Lasix drip at 5 mg/h, urine output is good kidney function test is stable, monitor BMP magnesium, physical therapy evaluation, continues to have swelling in both lower extremities, currently on amiodarone, echocardiogram showed ejection fraction of 40%. REVIEW OF SYSTEMS Constitutional: Reports no fever or chills, no night sweats. positive for weight change. Reports weakness, Reports fatigue, no lethargy, no daytime sleepiness. HEENT: No headache. No blurred vision or double vision, no loss of vision. No dizziness. No nasal drainage or congestion. No epistaxis. No sore throat, hard of hearing Lungs: positive for shortness of breath, positive for dry cough, no sputum production. positive for wheezing. Cardiovascular: No chest pain, positive for lower extremity edema, positive for palpitations, no paroxysmal nocturnal dyspnea. No orthopnea. No lightheadedness or dizziness. No syncopal episodes. Abdominal: No abdominal pain. positive for nausea, no vomiting. No diarrhea. No constipation. No bloody or tarry stools. Reports loss of appetite. Genitourinary: No dysuria, increased frequency, urgency. No urinary retention, positive for urinary incontinence Musculoskeletal: No myalgias. Reports muscle weakness, Reports gait dysfunction, Reports falls. positive for back pain. No neck pain. Integumentary: Reports wound to the left big toe with significant tissue edema, reports lower extremity redness, there is denuded ulcer to the left big toe Neurologic: No aphasia. No facial droop. No change in mentation. No head injury. No headache. No paralysis. No paresthesia. Psychiatric: positive for depression. No anxiety. No mood swings. Endocrine: positive for mildly abnormal blood sugars. positive for weight change. PHYSICAL EXAMINATION Gen: This is an 88-year-old female, sitting up in bed in no acute respiratory distress. HEENT: Head is atraumatic, normocephalic. Pupils equal, round. Sclerae is anicteric, mucous membranes of the mouth are somewhat dry, there is minimal thrush. NECK: Supple. No JVD. No lymphadenopathy. No thyromegaly. LUNGS: Decreased breath sounds at the bases, few rhonchi, minimal expiratory wheezes, no chest wall tenderness, no intercostal retractions. HEART: first heart sound is depressed, second heart sound is normal, irregularly irregular, there is systolic ejection murmur 2/6 located at the left sternal border. ABDOMEN: morbidly obese abdomen, soft nontender nondistended, positive bowel so unds. EXTREMITIES: 2+ bilateral pitting edema to the lower extremities, chronic stasis dermatitis, there is bilateral foot drop. NEUROLOGICAL: Patient is awake, alert and oriented x3. Cranial nerves 2 through 12 are grossly intact significant weakness to both lower extremity his right more than left, bilateral foot drop ASSESSMENT AND PLAN 1. Acute on chronic systolic heart failure. , continue Lasix drip at 5mg/h continue amiodarone 400 mg orally twice every day.. Echocardiogram was done last week showed LVF 40 % with moderate , we will continue with Farxiga 10 mg po daily, continue to monitor electrolytes and renal function. 2. Left lower lobe pneumonia. Resolved 3. Chronic atrial fibrillation. we will continue with Aniodarone 400 mg po bid and Eliquis 2.5 mg po bid 4. Anemia of chronic diseases. Stable at this time. 5. History of multiple DVTs and PE on silo operator anticoagulation. Continue eliquis 2.5 mg twice daily. Patient recently underwent Malik filter on November 2019 prior to laminectomy surgery. 6. Valvular heart disease with severe tricuspid regurgitation, mild-mod regurgitation moderate aortic stenosis. Case reviewed by Dr. Ceballos and he has reviewed echocardiogram, patient is actually a moderate aortic stenosis and does not qualify for TAVR procedure. 7. Severe pulmonary hypertension with RVSP 60 mmHg. we will continue with Furosemide drip 5 mg /h 8. Hypertension and hypertensive cardiovascular disease.we will continue to monitor her BP was marginal 9. Hyperlipidemia. Continue atorvastatin 10 mg at bedtime. 10. Diabetes mellitus type 2. Continue patient on Farxiga 10 mg po daily, along with SSI 11. Spinal stenosis status post laminectomy, with bilateral foot drop 12. Recurrent depression. Continue patient on Effexor 75 mg orally once every day. 13. Gastroesophageal reflux disease and GI prophylaxis. Protonix 40 mg po daily. 14. Thrombocytopenia. Monitor platelets. 15. DVT prophylaxis. Eliquis 2.5 mg orally twice every day. 16. Medical debility. Physical therapy evaluation. 17. No code. 18. Poor prognosis. Objective - Vital Signs Vital signs: Vital Signs Temp 98.1 F 12/17/23 09:10 Pulse 86 12/17/23 09:10 Resp 17 12/17/23 09:10 BP 93/61 12/17/23 09:10 Pulse Ox 97 12/17/23 09:10 FiO2 Intake & Output 12/16/23 12/17/23 12/17/23 18:59 06:59 18:59 Intake Total 301.542 540 118 Output Total 500 650 Balance -198.458 -110 118 Weight 146 kg Intake: Intake, IV Titration 61.542 Amount Furosemide 100 mg In 61.542 Sodium Chloride 0.9% 90 ml @ 5 MG/HR 5 mls/hr IV .Q20H [facility] Rx#:[id number] Oral 240 540 118 Output: Urine 500 650 Other: Voiding Method Indwelling Catheter Indwelling Catheter Indwelling Catheter - Labs CBC & Chem 7: 12/17/23 09:03 12/17/23 09:03 Labs: Abnormal Lab Results - Last 24 Hours (Table) 12/16/23 12/17/23 12/17/23 Range/Units 20:31 06:14 09:03 RBC (3.80-5.40) m/uL Hgb (11.4-16.0) gm/dL Hct (34.0-46.0) % MCHC (31.0-37.0) g/dL RDW (11.5-15.5) % BUN 32 H (7-17) mg/dL Creatinine 1.42 H (0.52-1.04) mg/dL Glucose 197 H (74-99) mg/dL POC Glucose (mg/dL) 167 H 149 H (70-110) mg/dL Calcium 8.3 L (8.4-10.2) mg/dL Albumin 3.1 L (3.5-5.0) g/dL 12/17/23 12/17/23 Range/Units 09:03 11:27 RBC 3.29 L (3.80-5.40) m/uL Hgb 8.7 L (11.4-16.0) gm/dL Hct 30.3 L (34.0-46.0) % MCHC 28.7 L (31.0-37.0) g/dL RDW 17.8 H (11.5-15.5) % BUN (7-17) mg/dL Creatinine (0.52-1.04) mg/dL Glucose (74-99) mg/dL POC Glucose (mg/dL) 172 H (70-110) mg/dL Calcium (8.4-10.2) mg/dL Albumin (3.5-5.0) g/dL
--- NOTE | 2023-12-17 13:47 | P.PN ---
Subjective Progress Note Date: 12/17/23 This 88-year-old female patient is being readmitted to the hospital due to concerns of some respiratory distress. While at the retirement, the patient was being moved around and she felt slightly more short of breath and for that reason she was brought into the hospital for further investigation. She has a long list of medical problems and comorbidities. She is known to me from previous admissions. She denies having any chest pain. No altered mentation. She has chronic edema lower extremities bilaterally and the patient has been taking diuretics on outpatient basis. Her mobility is limited. No altered mentation. I reviewed the chest x-ray of the chest that shows, thyromegaly and mild pulmonary vascular congestion. She has been morbidly obese with a body mass index of 51.6. She has previous history of DVT and pulmonary embolism. She has diabetes mellitus type 2, hypertension hyperlipidemia and spinal stenosis along with chronic A. fib and diastolic heart failure and chronic veno us stasis edema lower extremities bilaterally. She was taking Bumex on outpatient basis 1 mg daily basis. No fever. No altered mentation. The echoes at 6.7 with a hemoglobin of 9.9. BUN is at 30 with creatinine 1.38 and her renal function stable since her discharge from the hospital. Sodium level is at 138. The patient is seen today 12/12/2023 and follow-up on the regular medical floor. She is currently resting comfortably in bed. Awake and alert in no acute distress. She is maintaining O2 saturation in the 90s on 2 L/m per nasal cannula. She's been afebrile. Hemodynamically stable. She did have some left upper extremity edema. Doppler was negative for DVT. White count 7.4. Hemoglobin 9.1. Platelets 92,000. Sodium 140. Potassium 5.0. Bicarb 22. BUN 81. Creatinine 1.5. Glucose 119. She is continued on bronchodilators. Anticoagulated without this. Remains on IV diuretics. No accurate I&O. The patient is seen today December 13, 2023 and follow-up on the regular medical floor. She is currently resting flat in bed. Awake and alert in no acute distress. She is maintaining O2 saturation in the 90s on 3 L/min per nasal cannula. She continues with lower extremity edema and changes of chronic venous stasis. She remains on DuoNeb ventilations, Pulmicort inhalations. Remains on IV Lasix along with Aldactone. Anticoagulated with Xarelto. No accurate I&O. Sodium 137. Potassium 4.9. Bicarb 21. BUN 35. Creatinine 1.39. Glucose 111. The patient is seen today December 14, 2023 and follow-up on the regular medical floor. She is currently sitting up in bed. Awake and alert in no acute distress. Denies any worsening shortness of breath, cough or congestion. She is maintaining O2 saturations in the 90s on 2 L/min per nasal cannula. She has been afebrile. Hemodynamically stable. X-ray continues to show cardiomegaly with mild pulmonary vascular congestion. No focal consolidation. No pneumothorax. No pleural effusion. Sodium 138. Potassium 4.5. Bicarb 23. BUN 36. Creatinine 1.44. Glucose 119. She remains on IV diuretics. Anti coagulated with Eliquis. Continued on bronchodilators. The patient is seen today December 15, 2023 in follow-up on the regular medical floor. She is resting comfortably in bed. Awake and alert in no acute distress. Maintaining O2 saturations in the 90s on 3 L/min per nasal cannula. Ssodium 139. Potassium 4.8. Bicarb 20. BUN 35. Creatinine 1.6. Glucose 132. She is continued on bronchodilators. Anticoagulated with Eliquis. She has been initiated on a Lasix drip at 2.5 mg/h. She is awaiting transfer to selective care unit for amiodarone infusion. The patient is seen today December 16, 2023 and follow-up on the selective care unit. She was transferred here from the regular medical floor due to atrial fibrillation with rapid ventricular response. Her rate is better controlled to day. She is maintaining good O2 saturations in the 90s on 3 L/min per nasal cannula. She remains on a Lasix drip at 2.5 mg/h. Currently in a negative balance. Guajardo catheter in place. Glucose 144. She has been transitioned to oral amiodarone. She is anticoagulated with Eliquis. She continues on bronchodilators. The patient is seen today December 17, 2023 in follow-up on the selective care unit. She is currently sitting up in bed. She is awake and alert in no acute distress. She denies any worsening shortness of breath, cough or congestion. No chest pain. He is maintaining good O2 saturations in the 90s on 3 L/min per nasal cannula. She is afebrile. Hemodynamically stable. White count 6.0. Hemoglobin 8.7. Sodium 138. Potassium 4.1. Bicarb 24. BUN 32. Creatinine 1.42. Glucose 197. She is on oral amiodarone. Anticoagulated with Eliquis. Continued on bronchodilators. Continued on a Lasix drip at 2.5 mg/h. Currently in a negative balance. Objective - Vital Signs Vital signs: Vital Signs Temp 98.1 F 12/17/23 09:10 Pulse 82 12/17/23 13:06 Resp 17 12/17/23 09:10 BP 93/61 12/17/23 09:10 Pulse Ox 97 12/17/23 09:10 FiO2 Intake & Output 12/16/23 12/17/23 12/17/23 18:59 06:59 18:59 Intake Total 301.542 540 236 Output Total 500 650 800 Balance -198.458 -110 -564 Weight 146 kg Intake: Intake, IV Titration 61.542 Amount Furosemide 100 mg In 61.542 Sodium Chloride 0.9% 90 ml @ 5 MG/HR 5 mls/hr IV .Q20H [facility] Rx#:[id number] Oral 240 540 236 Output: Urine 500 650 800 Other: Voiding Method Indwelling Catheter Indwelling Catheter Indwelling Catheter - Exam GENERAL EXAM: Alert, resting comfortably in bed, 88-year-old female, on 3 L nasal cannula, in no distress. HEAD: Normocephalic and atraumatic EYES: Normal reaction of pupils, equal size. NOSE: Clear with pink turbinates. THROAT: No erythema or exudates. NECK: No masses, no JVD. CHEST: No chest wall deformity. LUNGS: Equal air entry with end expiratory wheeze. CVS: S1 and S2 normal with no audible murmur, regular rhythm. No extra heart sounds ABDOMEN: Obese abdomen, no hepatosplenomegaly, active bowel sounds, no guarding or rigidity. SPINE: No scoliosis or deformity SKIN: Left lower extremity erythema and edema CENTRAL NERVOUS SYSTEM: No focal deficits, tone is normal in all 4 extremities. EXTREMITIES: Bilateral lower extremity edema, left greater than right. Changes of chronic venous stasis. Peripheral pulses are intact. - Labs CBC & Chem 7: 12/17/23 09:03 12/17/23 09:03 Labs: Abnormal Lab Results - Last 24 Hours (Table) 12/16/23 12/17/23 12/17/23 Range/Units 20:31 06:14 09:03 RBC (3.80-5.40) m/uL Hgb (11.4-16.0) gm/dL Hct (34.0-46.0) % MCHC (31.0-37.0) g/dL RDW (11.5-15.5) % Lymphocytes # (1.0-4.8) k/uL BUN 32 H (7-17) mg/dL Creatinine 1.42 H (0.52-1.04) mg/dL Glucose 197 H (74-99) mg/dL POC Glucose (mg/dL) 167 H 149 H (70-110) mg/dL Calcium 8.3 L (8.4-10.2) mg/dL Albumin 3.1 L (3.5-5.0) g/dL 12/17/23 12/17/23 Range/Units 09:03 11:27 RBC 3.29 L (3.80-5.40) m/uL Hgb 8.7 L (11.4-16.0) gm/dL Hct 30.3 L (34.0-46.0) % MCHC 28.7 L (31.0-37.0) g/dL RDW 17.8 H (11.5-15.5) % Lymphocytes # 0.8 L (1.0-4.8) k/uL BUN (7-17) mg/dL Creatinine (0.52-1.04) mg/dL Glucose (74-99) mg/dL POC Glucose (mg/dL) 172 H (70-110) mg/dL Calcium (8.4-10.2) mg/dL Albumin (3.5-5.0) g/dL Assessment and Plan Assessment: Acute exacerbation of chronic systolic heart failure with an ejection fraction of 40 to 45%, severe pulmonary hypertension, moderate to severe degree of aortic stenosis Chronic hypoxic respiratory failure, currently on 3 L of oxygen by nasal cannula, likely in the base of CHF. No clear indication for pneumonia. Continued on a Lasix drip Chronic lower extremity edema with signs of chronic fluid overload, maintained on Bumex on outpatient basis Chronic dyspnea Moderate degree of aortic stenosis as evident on the echocardiogram Diabetes mellitus type 2 Chronic kidney disease, stage III Recent infection with COVID-19 infection PCR was negative at time of admission History of osteomyelitis of the left toe Diabetes mellitus type 2 Previous history of DVT and pulmonary embolism, maintained on anticoagulation with Eliquis Paroxysmal atrial fibrillation with a controlled rate and currently on anticoagulants with Eliquis Hyperlipidemia Hypertension Obesity Spinal stenosis and the patient has foot drop and she is unable to relate this point in time Poor overall functional performance based on the above-mentioned multiple comorbidities [facility] resident Plan: The patient was seen and evaluated Labs and medications reviewed Continued on a Lasix drip Remains in a negative balance Titrate the FiO2 as tolerated We will continue to follow I have personally seen and examined the patient, performed the documentation and the assessment and plan as written. Number of minutes spent on the visit: 10.
[2023-12-17 16:45] LABS: Glucose,Whole Blood 141 mg/dL (70-110)
[2023-12-17 19:56] LABS: Glucose,Whole Blood 140 mg/dL (70-110)
[2023-12-18 06:21] LABS: Glucose,Whole Blood 144 mg/dL (70-110)
[2023-12-18 08:09] LABS: Anisocytosis Slight; Basophils % (A) 1 %; Eosinophils # (A) 0.2 k/uL (0-0.7); Eosinophils % (A) 3 %; HCT 30.3 % (34.0-46.0); HGB 9.4 gm/dL (11.4-16.0); Hypochromasia Marked; Lymphocytes # (A) 0.7 k/uL (1.0-4.8); Lymphocytes % (A) 12 %; MCH 28.1 pg (25.0-35.0); MCV 90.4 fL (80.0-100.0); Mean Platelet Volume 10.5; Monocytes # (A) 0.7 k/uL (0-1.0); Monocytes % (A) 11 %; Neutrophils # (A) 4.2 k/uL (1.3-7.7); Neutrophils % (A) 71 %; Poikilocytosis Slight; RBC 3.35 m/uL (3.80-5.40)
--- NOTE | 2023-12-18 08:35 | XR ---
EXAMINATION TYPE: XR chest 1V portable DATE OF EXAM: 12/18/2023 COMPARISON: 12/14/2023 INDICATION: CHF tip seen TECHNIQUE: Single frontal view of the chest is obtained. FINDINGS: The heart size is enlarged. The pulmonary vasculature is normal. Plate atelectasis at the left base. There is silhouetting left diaphragm. Retrocardiac infiltrate and /or effusion may be present. Follow-up recommended. IMPRESSION: 1. Left lower lobe infiltrate and/or effusion. Follow-up is recommended. 2. Left midlung peripheral platelike atelectasis
[2023-12-18 08:55] LABS: ALT 11 U/L (4-34); AST 21 U/L (14-36); African American GFR (CKD) 38 (>60 ml/min/1.73 sqM); Albumin 3.1 g/dL (3.5-5.0); Alkaline Phosphatase 92 U/L (38-126); Anion Gap 9 mmol/L; Blood Urea Nitrogen 32 mg/dL (7-17); Calcium 8.4 mg/dL (8.4-10.2); Carbon Dioxide 25 mmol/L (22-30); Chloride 106 mmol/L (98-107); Glucose 141 mg/dL (74-99); Magnesium 2.2 mg/dL (1.6-2.3); Non-African American GFR(CKD) 33 (>60 ml/min/1.73 sqM); Sodium 140 mmol/L (137-145); Total Bilirubin 0.7 mg/dL (0.2-1.3); Total Protein 6.6 g/dL (6.3-8.2)
[2023-12-18 11:17] LABS: Glucose,Whole Blood 155 mg/dL (70-110)
--- NOTE | 2023-12-18 11:17 | P.PN ---
Subjective HISTORY OF PRESENT ILLNESS: 88-year-old female was recently admitted to the hospital because of congestive heart failure and respiratory distress. She was managed with IV antibiotics and was discharged home on Bumex 3 days ago. In prison patient started having increased cough and increased shortness of breath due to which she was sent to the hospital again. Patient has chronic lower extremity edema. Morbidly obese, BMI 51, previous h istory of DVT and pulmonary embolism. Type 2 diabetes, hypertension, hyperlipidemia chronic atrial fibrillation and diastolic heart failure. BUN 31, creatinine 1.3, hemoglobin 9.9 12/12 Patient seen today in follow-up. She continues to have decreased breath sounds/crackles and lower extremity edema. She is currently on Lasix 40 mg IV every 12 hours and was started on spironolactone 12.5 mg daily yesterday. Blood pressure 101/61, heart rate in the 80s, pulse ox 96% on 2 L. Left upper extremity venous Doppler duplex was negative for DVT. 12/13 Patient continues to have lower extremity edema and venous stasis changes. Her breathing is slowly improving. She has been on IV Lasix 40 mg every 12 hours increased to 80 mg every 12 hours by attending. Repeat blood work reveals BUN 35, creatinine 1.39, potassium 4.9. Blood sugar 105/73, heart rate is in the 70s. Patient is currently on O2 at 3 L nasal cannula. 12/14 Patient is a low blood pressure reading this morning of 79/53 and repeat is at 92/60. Heart rate is in the 70s and 80s. Attending has decreased IV Lasix to 40 mg every 12 hours. Patient appears to have a documented weight loss of 7 kg but urine output has been minimal but patient is urinating in brief. Guajardo catheter has been ordered. Requested evaluation for TAVR procedure but patient does not meet criteria as severe aortic stenosis is necessary to meet criteria. Chest x-ray performed this morning is pending. Lab work for today is pending. Most recent echocardiogram performed on 12/01/2023 revealed moderate LV systolic dysfunction. Moderate to severe aortic stenosis with peak gradient of 48 and mean gradient of 34 meeting criteria for moderate as reviewed by Dr. Ceballos. 12/15 Dr. Ceballos discussed case with Dr. Liu and recommended discontinuing the beta- shawn and IV Lasix and starting the patient on amiodarone bolus and drip as well as Lasix drip at a low dose. Patient's blood pressure has been marginal and no significant improvement with IV Lasix. Recommend blood pressure checks in both arms. Repeat blood work reveals potassium 4.8, BUN 34 creatinine 1.6. Patient has been afebrile, blood pressure 102/71, heart rate in the 80s. Yeste rday, Aldactone was discontinued and follow-up was decreased to 25 mg twice daily due to consistently low blood pressure readings. December 16, 2023 Patient examined this morning at the bedside. Patient continues to report mild shortness of breath. She denies chest pain or pressure. Telemetry reveals atrial fibrillation with heart in the 80s. She remains on IV Amio. She also remains on a Lasix drip at 2.5 mg an hour. Blood pressure is currently stable. December 17, 2023 Patient examined this morning at the bedside. Patient denies chest pain or pressure. She reports improvement in her shortness of breath. She remains on a Lasix drip at 5 mg an hour. Creatinine today 1.42. Blood pressure is stable. December 18, 2023 Patient examined this morning at the bedside. Patient denies chest pain or pressure. She currently denies shortness of breath. She remains on Lasix drip at 5 mg an hour. Creatinine remained stable today at 1.44. Blood pressure 109/71. Urine output over the last 24 hours is 1900 cc. PHYSICAL EXAM: VITAL SIGNS: Reviewed. GENERAL: Well-developed in no acute distress. NECK: Supple. No JVD or thyromegaly LUNGS: Respirations even and unlabored. Lungs diminished bilaterally HEART: Irregular rate and rhythm. S1 and S2 heard. Systolic murmur noted. EXTREMITIES: Normal range of motion. No clubbing or cyanosis. Peripheral pulses intact. 3+ bilateral lower extremity edema ASSESSMENT: Acute on chronic HFREF exacerbation . EF 40-45% moderate LVH Moderate aortic stenosis Chronic lower extremity edema Pulmonary hypertension Type II Diabetes CKD stage III Recent COVID-19 infection. Post viral cough History of DVT and pulmonary embolism on anticoagulation Chronic atrial fibrillation Hypertension Dyslipidemia Morbid obesity PLAN: Increase Lasix to 7.5 mg an hour Daily weights, accurate intake and output, and monitoring of kidney function Continue to monitor blood pressure Further recommendations pending patient course Nurse practitioner note has been reviewed by physician. Signing provider agrees with the documented findings, assessment, and plan of care documented by GRA[employer] ELEVATOR OPERATOR as a scribe. Objective - Vital Signs Vital signs: Vital Signs Temp 97.7 F 12/18/23 08:05 Pulse 73 12/18/23 09:50 Resp 18 12/18/23 08:05 BP 109/71 12/18/23 08:05 Pulse Ox 95 12/18/23 09:33 FiO2 Intake & Output 12/17/23 12/18/23 12/18/23 18:59 06:59 18:59 Intake Total 236 603.208 225 Output Total 800 1100 Balance -564 -496.792 225 Intake: Intake, IV Titration 63.208 Amount Furosemide 100 mg In 63.208 Sodium Chloride 0.9% 90 ml @ 5 MG/HR 5 mls/hr IV .Q20H [facility] Rx#:[id number] Oral 236 540 225 Output: Urine 800 1100 Other: Voiding Method Indwelling Catheter Indwelling Catheter Indwelling Catheter - Labs CBC & Chem 7: 12/18/23 06:47 12/18/23 06:47 Labs: Abnormal Lab Results - Last 24 Hours (Table) 12/17/23 12/17/23 12/17/23 Range/Units 09:03 11:27 16:43 RBC (3.80-5.40) m/uL Hgb (11.4-16.0) gm/dL Hct (34.0-46.0) % RDW (11.5-15.5) % Lymphocytes # 0.8 L (1.0-4.8) k/uL BUN (7-17) mg/dL Creatinine (0.52-1.04) mg/dL Glucose (74-99) mg/dL POC Glucose (mg/dL) 172 H 141 H (70-110) mg/dL Albumin (3.5-5.0) g/dL 12/17/23 12/18/23 12/18/23 Range/Units 19:54 06:20 06:47 RBC 3.35 L (3.80-5.40) m/uL Hgb 9.4 L (11.4-16.0) gm/dL Hct 30.3 L (34.0-46.0) % RDW 18.0 H (11.5-15.5) % Lymphocytes # 0.7 L (1.0-4.8) k/uL BUN (7-17) mg/dL Creatinine (0.52-1.04) mg/dL Glucose (74-99) mg/dL POC Glucose (mg/dL) 140 H 144 H (70-110) mg/dL Albumin (3.5-5.0) g/dL 12/18/23 Range/Units 06:47 RBC (3.80-5.40) m/uL Hgb (11.4-16.0) gm/dL Hct (34.0-46.0) % RDW (11.5-15.5) % Lymphocytes # (1.0-4.8) k/uL BUN 32 H (7-17) mg/dL Creatinine 1.44 H (0.52-1.04) mg/dL Glucose 141 H (74-99) mg/dL POC Glucose (mg/dL) (70-110) mg/dL Albumin 3.1 L (3.5-5.0) g/dL
--- NOTE | 2023-12-18 11:19 | P.PN ---
Subjective Progress Note Date: 12/18/23 HISTORY OF PRESENT ILLNESS This is an 88-year-old female patient of [facility], with past medical history of PE and DVT, morbid obesity, diabetes mellitus type 2, hypertension, hyperlipidemia, history of spinal stenosis status post surgery in [place], history of small bowel obstruction secondary to incarcerated umbilical hernia status post repair of the hernia with resolution of the bowel obstruction, history of atrial fibrillation, history of chronic diastolic heart failure with significant for hypertension and significant venous hypertension both lower extremities and significant edema, patient patient has been almost in a sedentary lifestyle noncompliant with her diet sitting in her wheelchair most of the day, has been on chronic diuretic use , patient was recently discharged from [facility] after she was admitted for acute on chronic systolic heart failure and she was seen by Cardiology and pulmonary and her Echocardiogram showed reduced EF 40-45% with severe Aortic stenosis and mild MR and Aortic aneurysm 4.1 cm, she was discharge 12/06/2021 and she was seen by me yesrterday at [facility] where she was short of breath withy increased weight gain she was discharged on Bumex 1 mg po daily that was increased to bid without any help , so she was sent out to [facility] for acute on chronic systolic heart failure. 12/12: Patient has been seen by cardiology and maintained on same medications. Left upper extremity duplex was negative for DVT. Patient continues to have lower extremity edema more than her baseline and bilateral crackles. Patient is also followed by pulmonary medicine. Blood pressure 101/61, heart rate in the 60s to 80s, pulse ox 91% on 2 L nasal cannula, afebrile. Repeat blood work reveals WBC 7.4, hemoglobin 9.1, platelet count 92. Electrolytes are normal, BUN 30 creatinine 1.5. Blood sugar 119. Capillary blood sugar is [id number]. Patient's appetite seems to be improving. She states she worked with physical therapy by sitting on the edge of the bed for 15 minutes today. 12/13: Patient continues to have fluid overload and lower extremity edema but breathing seems to be improving. She has been on IV Lasix 40 mg every 12 hours. Repeat renal function is BUN 35 creatinine 1.39, potassium 4.9. Blood pressure 105/73, heart rate in the 70s. Patient is currently on 3 L oxygen nasal cannula. Cardiology and pulmonary medicine are following. 12/14: Patient does not appear to have significant improvement. Blood pressure was low this morning with systolic in the 70s. Yesterday we had increased her IV Lasix to 80 mg twice daily. Patient is urinating in her brief and accurate CALEB's are not available. Guajardo catheter will be placed. We will decrease IV Lasix to 40 mg twice daily, cardiology has discontinued Aldactone. Heart rate has been in the 80s, pulse ox 98% on 2 L nasal cannula. Repeat BUN 36 and creatinine 1.44. Hemoglobin is 9.5. 12/15: Case was discussed with Dr. Ceballos this morning and plan is to start patient on Lasix drip and amiodarone, discontinue beta-shawn. Patient will be transferred to the cardiac stepdown unit. Patient complains of not having a bowel movement since Tuesday and to collect suppository and enema been ordered as needed. Patient remains afebrile, heart rate in the 80s and 90s, blood pressure 102/61, pulse ox 96 to 99% on 3 L nasal cannula. Repeat blood work reveals sodium 139, potassium 4.8, BUN 34 and creatinine 1.6. Blood glucose running between 146 and 178. 12/16: Patient sitting up in bed she continues to be somewhat short of breath, she denies any chest pain, but she continues to have some dry cough, she is not spitting up any phlegm, she was started on amiodarone 400 mg twice a day, she is currently on Lasix drip at 5 mg an hour, urine output is marginal, she is continuing to have edema in both lower extremities we will continue to monitor the patient very closely, monitor electrolytes, magnesium and phosphorus. 12/17: Patient sitting up in bed she is feeling better today, she is less short of breath, she had an episode of epistaxis yesterday due to dryness because of her oxygen, she continues to be on Lasix drip at 5 mg/h, urine output is good kidney function test is stable, monitor BMP magnesium, physical therapy evaluation, continues to have swelling in both lower extremities, currently on amiodarone, echocardiogram showed ejection fraction of 40%. 12/18: Patient is feeling better today, she continues to be on Lasix drip at 5 mg an hour, we will continue to monitor the patient very closely, continue to monitor input and output and daily weight, continue with Angel Luis wrap to both lower extremities, physical therapy and Occupational Therapy evaluation, likely will be staying in the hospital for another 24 hours. REVIEW OF SYSTEMS Constitutional: Reports no fever or chills, no night sweats. positive for we ight change. Reports weakness, Reports fatigue, no lethargy, no daytime sleepiness. HEENT: No headache. No blurred vision or double vision, no loss of vision. No dizziness. No nasal drainage or congestion. No epistaxis. No sore throat, hard of hearing Lungs: positive for shortness of breath, positive for dry cough, no sputum production. positive for wheezing. Cardiovascular: No chest pain, positive for lower extremity edema, positive for palpitations, no paroxysmal nocturnal dyspnea. No orthopnea. No lightheadedness or dizziness. No syncopal episodes. Abdominal: No abdominal pain. positive for nausea, no vomiting. No diarrhea. No constipation. No bloody or tarry stools. Reports loss of appetite. Genitourinary: No dysuria, increased frequency, urgency. No urinary retention, positive for urinary incontinence Musculoskeletal: No myalgias. Reports muscle weakness, Reports gait dysfunction, Reports falls. positive for back pain. No neck pain. Integumentary: Reports wound to the left big toe with significant tissue edema, reports lower extremity redness, there is denuded ulcer to the left big toe Neurologic: No aphasia. No facial droop. No change in mentation. No head injury. No headache. No paralysis. No paresthesia. Psychiatric: positive for depression. No anxiety. No mood swings. Endocrine: positive for mildly abnormal blood sugars. positive for weight razo ge. PHYSICAL EXAMINATION Gen: This is an 88-year-old female, sitting up in bed in no acute respiratory distress. HEENT: Head is atraumatic, normocephalic. Pupils equal, round. Sclerae is anicteric, mucous membranes of the mouth are somewhat dry, there is minimal thrush. NECK: Supple. No JVD. No lymphadenopathy. No thyromegaly. LUNGS: Decreased breath sounds at the bases, few rhonchi, minimal expiratory wheezes, no chest wall tenderness, no intercostal retractions. HEART: first heart sound is depressed, second heart sound is normal, irregularly irregular, there is systolic ejection murmur 2/6 located at the left sternal border. ABDOMEN: morbidly obese abdomen, soft nontender nondistended, positive bowel sounds. EXTREMITIES: 2+ bilateral pitting edema to the lower extremities, chronic stasis dermatitis, there is bilateral foot drop. NEUROLOGICAL: Patient is awake, alert and oriented x3. Cranial nerves 2 through 12 are grossly intact significant weakness to both lower extremity his right more than left, bilateral foot drop ASSESSMENT AND PLAN 1. Acute on chronic systolic heart failure. , continue Lasix drip at 5mg/h continue amiodarone 400 mg orally twice every day.. Echocardiogram was done last week showed LVF 40 % with moderate , we will continue with Farxiga 10 mg po daily, continue to monitor electrolytes and renal function. 2. Left lower lobe pneumonia. Resolved 3. Chronic atrial fibrillation. we will continue with Aniodarone 400 mg po bid and Eliquis 2.5 mg po bid 4. Anemia of chronic diseases. Stable at this time. 5. History of multiple DVTs and PE on extermination supervisor anticoagulation. Continue eliquis 2.5 mg twice daily. Patient recently underwent [place] filter on Nov prior to laminectomy surgery. 6. Valvular heart disease with severe tricuspid regurgitation, mild-mod regurgitation moderate aortic stenosis. Case reviewed by Dr. Ceballos and he has reviewed echocardiogram, patient is actually a moderate aortic stenosis and does not qualify for TAVR procedure. 7. Severe pulmonary hypertension with RVSP 60 mmHg. we will continue with Furosemide drip 5 mg /h 8. Hypertension and hypertensive cardiovascular disease.we will continue to monitor her BP was marginal 9. Hyperlipidemia. Continue atorvastatin 10 mg at bedtime. 10. Diabetes mellitus type 2. Continue patient on Farxiga 10 mg po daily, along with SSI 11. Spinal stenosis status post laminectomy, with bilateral foot drop 12. Recurrent depression. Continue patient on Effexor 75 mg orally once every day. 13. Gastroesophageal reflux disease and GI prophylaxis. Protonix 40 mg po daily. 14. Thrombocytopenia. Monitor platelets. 15. DVT prophylaxis. Eliquis 2.5 mg orally twice every day. 16. Medical debility. Physical therapy evaluation. 17. No code. 18. Poor prognosis. Objective - Vital Signs Vital signs: Vital Signs Temp 97.7 F 12/18/23 08:05 Pulse 73 12/18/23 09:50 Resp 18 12/18/23 08:05 BP 109/71 12/18/23 08:05 Pulse Ox 95 12/18/23 09:33 FiO2 Intake & Output 12/17/23 12/18/23 12/18/23 18:59 06:59 18:59 Intake Total 236 603.208 225 Output Total 800 1100 Balance -564 -496.792 225 Intake: Intake, IV Titration 63.208 Amount Furosemide 100 mg In 63.208 Sodium Chloride 0.9% 90 ml @ 5 MG/HR 5 mls/hr IV .Q20H [facility] Rx#:[id number] Oral 236 540 225 Output: Urine 800 1100 Other: Voiding Method Indwelling Catheter Indwelling Catheter Indwelling Catheter - Labs CBC & Chem 7: 12/18/23 06:47 12/18/23 06:47 Labs: Abnormal Lab Results - Last 24 Hours (Table) 12/17/23 12/17/23 12/17/23 Range/Units 09:03 11:27 16:43 RBC (3.80-5.40) m/uL Hgb (11.4-16.0) gm/dL Hct (34.0-46.0) % RDW (11.5-15.5) % Lymphocytes # 0.8 L (1.0-4.8) k/uL BUN (7-17) mg/dL Creatinine (0.52-1.04) mg/dL Glucose (74-99) mg/dL POC Glucose (mg/dL) 172 H 141 H (70-110) mg/dL Albumin (3.5-5.0) g/dL 12/17/23 12/18/23 12/18/23 Range/Units 19:54 06:20 06:47 RBC 3.35 L (3.80-5.40) m/uL Hgb 9.4 L (11.4-16.0) gm/dL Hct 30.3 L (34.0-46.0) % RDW 18.0 H (11.5-15.5) % Lymphocytes # 0.7 L (1.0-4.8) k/uL BUN (7-17) mg/dL Creatinine (0.52-1.04) mg/dL Glucose (74-99) mg/dL POC Glucose (mg/dL) 140 H 144 H (70-110) mg/dL Albumin (3.5-5.0) g/dL 01/28/24 Range/Units 06:47 RBC (3.80-5.40) m/uL Hgb (11.4-16.0) gm/dL Hct (34.0-46.0) % RDW (11.5-15.5) % Lymphocytes # (1.0-4.8) k/uL BUN 32 H (7-17) mg/dL Creatinine 1.44 H (0.52-1.04) mg/dL Glucose 141 H (74-99) mg/dL POC Glucose (mg/dL) (70-110) mg/dL Albumin 3.1 L (3.5-5.0) g/dL
--- NOTE | 2023-12-18 14:37 | P.PN ---
Subjective Progress Note Date: 12/18/23 Principal diagnosis: Acute hypoxic respiratory failure with acute systolic congestive heart failure This 88-year-old female patient is being readmitted to the hospital due to con cerns of some respiratory distress. While at the shelter, the patient was being moved around and she felt slightly more short of breath and for that reason she was brought into the hospital for further investigation. She has a long list of medical problems and comorbidities. She is known to me from previous admissions. She denies having any chest pain. No altered mentation. She has chronic edema lower extremities bilaterally and the patient has been taking diuretics on outpatient basis. Her mobility is limited. No altered mentation. I reviewed the chest x-ray of the chest that shows, thyromegaly and mild pulmonary vascular congestion. She has been morbidly obese with a body ma ss index of 51.6. She has previous history of DVT and pulmonary embolism. She has diabetes mellitus type 2, hypertension hyperlipidemia and spinal stenosis along with chronic A. fib and diastolic heart failure and chronic venous stasis edema lower extremities bilaterally. She was taking Bumex on outpatient basis 1 mg daily basis. No fever. No altered mentation. The echoes at 6.7 with a hemoglobin of 9.9. BUN is at 30 with creatinine 1.38 and her renal function stable since her discharge from the hospital. Sodium level is at 138. The patient is seen today 12/12/2023 and follow-up on the regular medical floor. She is currently resting comfortably in bed. Awake and alert in no acute distress. She is maintaining O2 saturation in the 90s on 2 L/m per nasal cannula. She's been afebrile. Hemodynamically stable. She did have some left upper extremity edema. Doppler was negative for DVT. White count 7.4. Hemoglobin 9.1. Platelets 92,000. Sodium 140. Potassium 5.0. Bicarb 22. BUN 81. Creatinine 1.5. Glucose 119. She is continued on bronchodilators. Anticoagulated without this. Remains on IV diuretics. No accurate I&O. The patient is seen today December 13, 2023 and follow-up on the regular medical floor. She is currently resting flat in bed. Awake and alert in no acute distress. She is maintaining O2 saturation in the 90s on 3 L/min per nasal cannula. She continues with lower extremity edema and changes of chronic venous stasis. She remains on DuoNeb ventilations, Pulmicort inhalations. Remains on IV Lasix along with Aldactone. Anticoagulated with Xarelto. No accurate I&O. Sodium 137. Potassium 4.9. Bicarb 21. BUN 35. Creatinine 1.39. Glucose 111. The patient is seen today December 14, 2023 and follow-up on the regular medical floor. She is currently sitting up in bed. Awake and alert in no acute distress. Denies any worsening shortness of breath, cough or congestion. She is maintaining O2 saturations in the 90s on 2 L/min per nasal cannula. She has been afebrile. Hemodynamically stable. X-ray continues to show cardiomegaly with mild pulmonary vascular congestion. No focal consolidation. No pneumothorax. No pleural effusion. Sodium 138. Potassium 4.5. Bicarb 23. BUN 36. Creatinine 1.44. Glucose 119. She remains on IV diuretics. Anticoagulated with Eliquis. Continued on bronchodilators. The patient is seen today December 15, 2023 in follow-up on the regular medical floor. She is resting comfortably in bed. Awake and alert in no acute distress. Maintaining O2 saturations in the 90s on 3 L/min per nasal cannula. Ssodium 139. Potassium 4.8. Bicarb 20. BUN 35. Creatinine 1.6. Glucose 132. She is continued on bronchodilators. Anticoagulated with Eliquis. She has been initiated on a Lasix drip at 2.5 mg/h. She is awaiting transfer to selective care unit for amiodarone infusion. The patient is seen today December 16, 2023 and follow-up on the selective care unit. She was transferred here from the regular medical floor due to atrial fibrillation with rapid ventricular response. Her rate is better controlled today. She is maintaining good O2 saturations in the 90s on 3 L/min per nasal cannula. She remains on a Lasix drip at 2.5 mg/h. Currently in a negative balance. Guajardo catheter in place. Glucose 144. She has been transitioned to oral amiodarone. She is anticoagulated with Eliquis. She continues on bronchodilators. The patient is seen today December 17, 2023 in follow-up on the selective care unit. She is currently sitting up in bed. She is awake and alert in no acute distress. She denies any worsening shortness of breath, cough or congestion. No chest pain. He is maintaining good O2 saturations in the 90s on 3 L/min per nasal cannula. She is afebrile. Hemodynamically stable. White count 6.0. Hemoglobin 8.7. Sodium 138. Potassium 4.1. Bicarb 24. BUN 32. Creatinine 1.42. Glucose 197. She is on oral amiodarone. Anticoagulated with Eliquis. Continued on bronchodilators. Continued on a Lasix drip at 2.5 mg/h. Currently in a negative balance. Patient was reevaluated today on 12/18/2023, remains on Lasix drip at 5 mg an hour, patient is on3 L nasal cannula with O2 sats of 92% denies any shortness of breath denies any chest pain, her creatinine is stable at 1.44, and she put out almost 1900 cc over the last 24 hours. Follow-up chest x-ray did show evidence of improvement nonetheless continues to have a small left pleural effusion ye Objective - Vital Signs Vital signs: Vital Signs Temp 97.7 F 12/18/23 08:05 Pulse 69 12/18/23 12:35 Resp 17 12/18/23 11:50 BP 108/67 12/18/23 11:50 Pulse Ox 92 L 12/18/23 11:50 FiO2 Intake & Output 12/17/23 12/18/23 12/18/23 18:59 06:59 18:59 Intake Total 236 603.208 489.167 Output Total 800 1100 600 Balance -564 -496.792 -110.833 Intake: Intake, IV Titration 63.208 39.167 Amount Furosemide 100 mg In 63.208 39.167 Sodium Chloride 0.9% 90 ml @ 7.5 MG/HR 7.5 mls/hr IV .[id number] [facility] Rx#: [id number] Oral 236 540 450 Output: Urine 800 1100 600 Other: Voiding Method Indwelling Catheter Indwelling Catheter Indwelling Catheter # Bowel Movements 1 - Exam GENERAL EXAM: Alert, resting comfortably in bed, 88-year-old female, on 3 L nasal cannula, in no distress. HEAD: Normocephalic and atraumatic EYES: Normal reaction of pupils, equal size. NOSE: Clear with pink turbinates. THROAT: No erythema or exudates. NECK: No masses, no JVD. CHEST: No chest wall deformity. LUNGS: Slightly diminished breath sounds at the bases no rhonchi no wheezes CVS: S1 and S2 normal with no audible murmur, irregular irregular rhythm ABDOMEN: Obese abdomen, no hepatosplenomegaly, active bowel sounds, no guarding or rigidity. SKIN: Bipedal edema/trace CENTRAL NERVOUS SYSTEM: No focal deficits, tone is normal in all 4 extremities. EXTREMITIES: Bilateral lower extremity edema, left greater than right. Changes of chronic venous stasis. Peripheral pulses are intact. - Labs CBC & Chem 7: 12/18/23 06:47 12/18/23 06:47 Labs: Abnormal Lab Results - Last 24 Hours (Table) 12/17/23 12/17/23 12/18/23 Range/Units 16:43 19:54 06:20 RBC (3.80-5.40) m/uL Hgb (11.4-16.0) gm/dL Hct (34.0-46.0) % RDW (11.5-15.5) % Lymphocytes # (1.0-4.8) k/uL BUN (7-17) mg/dL Creatinine (0.52-1.04) mg/dL Glucose (74-99) mg/dL POC Glucose (mg/dL) 141 H 140 H 144 H (70-110) mg/dL Albumin (3.5-5.0) g/dL 12/18/23 12/18/23 12/18/23 Range/Units 06:47 06:47 11:16 RBC 3.35 L (3.80-5.40) m/uL Hgb 9.4 L (11.4-16.0) gm/dL Hct 30.3 L (34.0-46.0) % RDW 18.0 H (11.5-15.5) % Lymphocytes # 0.7 L (1.0-4.8) k/uL BUN 32 H (7-17) mg/dL Creatinine 1.44 H (0.52-1.04) mg/dL Glucose 141 H (74-99) mg/dL POC Glucose (mg/dL) 155 H (70-110) mg/dL Albumin 3.1 L (3.5-5.0) g/dL Assessment and Plan Assessment: Impression:Acute exacerbation of chronic systolic heart failure with an ejection fraction of 40 to 45%, severe pulmonary hypertension, moderate to severe degree of aortic stenosis Chronic hypoxic respiratory failure, currently on 3 L of oxygen by nasal cannula, likely in the base of CHF. No clear indication for pneumonia. Continued on a Lasix drip Chronic lower extremity edema with signs of chronic fluid overload, maintained on Bumex on outpatient basis Chronic dyspnea Moderate degree of aortic stenosis as evident on the echocardiogram Diabetes mellitus type 2 Chronic kidney disease, stage III Recent infection with COVID-19 infection PCR was negative at time of admission History of osteomyelitis of the left toe Diabetes mellitus type 2 Previous history of DVT and pulmonary embolism, maintained on anticoagulation with Eliquis Paroxysmal atrial fibrillation with a controlled rate and currently on anticoagulants with Eliquis Hyperlipidemia Hypertension Obesity Spinal stenosis and the patient has foot drop and she is unable to relate this point in time Poor overall functional performance based on the above-mentioned multiple comorbidities care home resident Recommendation: Continue Lasix as per cardiology and primary care on the case. Reviewed chest x-ray and again no need for left-sided thoracentesis at this point, the pleural effusion is small, risks outweigh the benefits. Continue to monitor daily electrolytes and renal profile. Titrate FiO2 accordingly. Will follow as needed Time with Patient: Less than 30
[2023-12-18 16:20] LABS: Glucose,Whole Blood 200 mg/dL (70-110)
[2023-12-18 20:03] LABS: Glucose,Whole Blood 181 mg/dL (70-110)
[2023-12-19 05:49] LABS: Glucose,Whole Blood 167 mg/dL (70-110)
[2023-12-19] MEDS: ZINC OXIDE PASTE (Z-GUARD) 1 APPLIC TOPICAL PRN (08:59)
[2023-12-19 09:36] LABS: Appearance,Urine Cloudy (Clear); Bacteria,Urine Rare /hpf; Bilirubin,Urine Negative (Negative); Blood,Urine Large (Negative); Calcium Oxalate Crystals,Urine Rare /hpf; Color,Urine Light Yellow; Glucose,Urine (UA) 3+ (Negative); Hyaline Casts,Urine 24 /lpf (0-2); Ketones,Urine Negative (Negative); Leukocyte Esterase,Urine Large (Negative); Mucus,Urine Rare /hpf; Nitrite,Urine Negative (Negative); PH, Urine 5.5 (5.0-8.0); Protein,Urine 1+ (Negative); RBC,Urine 153 /hpf (0-5); Specific Gravity,Urine 1.011 (1.001-1.035); Squamous Epithelial Cell,Urine <1 /hpf (0-4); Urobilinogen,Urine <2.0 mg/dL (<2.0); WBC,Urine 181 /hpf (0-5)
[2023-12-19 10:55] LABS: African American GFR (CKD) 42 (>60 ml/min/1.73 sqM); Anion Gap 11 mmol/L; Blood Urea Nitrogen 34 mg/dL (7-17); Calcium 8.4 mg/dL (8.4-10.2); Carbon Dioxide 23 mmol/L (22-30); Chloride 105 mmol/L (98-107); Glucose 141 mg/dL (74-99); Non-African American GFR(CKD) 36 (>60 ml/min/1.73 sqM); Sodium 139 mmol/L (137-145)
[2023-12-19 12:14] LABS: Glucose,Whole Blood 169 mg/dL (70-110)
[2023-12-19] MEDS: DOXYCYCLINE 100 MG CAP PO SCH (13:20)
[2023-12-19 13:52] VITALS: BMI 48.2
--- NOTE | 2023-12-19 14:57 | P.PN ---
Subjective Progress Note Date: 12/19/23 This 88-year-old female patient is being readmitted to the hospital due to concerns of some respiratory distress. While at the shelter, the patient was being moved around and she felt slightly more short of breath and for that reason she was brought into the hospital for further investigation. She has a long list of medical problems and comorbidities. She is known to me from previous admissions. She denies having any chest pain. No altered mentation. She has chronic edema lower extremities bilaterally and the patient has been taking diuretics on outpatient basis. Her mobility is limited. No altered mentation. I reviewed the chest x-ray of the chest that shows, thyromegaly and mild pulmonary vascular congestion. She has been morbidly obese with a body mass index of 51.6. She has previous history of DVT and pulmonary embolism. She has diabetes mellitus type 2, hypertension hyperlipidemia and spinal stenosis along with chronic A. fib and diastolic heart failure and chronic veno us stasis edema lower extremities bilaterally. She was taking Bumex on outpatient basis 1 mg daily basis. No fever. No altered mentation. The echoes at 6.7 with a hemoglobin of 9.9. BUN is at 30 with creatinine 1.38 and her renal function stable since her discharge from the hospital. Sodium level is at 138. The patient is seen today 12/12/2023 and follow-up on the regular medical floor. She is currently resting comfortably in bed. Awake and alert in no acute distress. She is maintaining O2 saturation in the 90s on 2 L/m per nasal cannula. She's been afebrile. Hemodynamically stable. She did have some left upper extremity edema. Doppler was negative for DVT. White count 7.4. Hemoglobin 9.1. Platelets 92,000. Sodium 140. Potassium 5.0. Bicarb 22. BUN 81. Creatinine 1.5. Glucose 119. She is continued on bronchodilators. Anticoagulated without this. Remains on IV diuretics. No accurate I&O. The patient is seen today December 13, 2023 and follow-up on the regular medical floor. She is currently resting flat in bed. Awake and alert in no acute distress. She is maintaining O2 saturation in the 90s on 3 L/min per nasal cannula. She continues with lower extremity edema and changes of chronic venous stasis. She remains on DuoNeb ventilations, Pulmicort inhalations. Remains on IV Lasix along with Aldactone. Anticoagulated with Xarelto. No accurate I&O. Sodium 137. Potassium 4.9. Bicarb 21. BUN 35. Creatinine 1.39. Glucose 111. The patient is seen today December 14, 2023 and follow-up on the regular medical floor. She is currently sitting up in bed. Awake and alert in no acute distress. Denies any worsening shortness of breath, cough or congestion. She is maintaining O2 saturations in the 90s on 2 L/min per nasal cannula. She has been afebrile. Hemodynamically stable. X-ray continues to show cardiomegaly with mild pulmonary vascular congestion. No focal consolidation. No pneumothorax. No pleural effusion. Sodium 138. Potassium 4.5. Bicarb 23. BUN 36. Creatinine 1.44. Glucose 119. She remains on IV diuretics. Anti coagulated with Eliquis. Continued on bronchodilators. The patient is seen today December 15, 2023 in follow-up on the regular medical floor. She is resting comfortably in bed. Awake and alert in no acute distress. Maintaining O2 saturations in the 90s on 3 L/min per nasal cannula. Ssodium 139. Potassium 4.8. Bicarb 20. BUN 35. Creatinine 1.6. Glucose 132. She is continued on bronchodilators. Anticoagulated with Eliquis. She has been initiated on a Lasix drip at 2.5 mg/h. She is awaiting transfer to selective care unit for amiodarone infusion. The patient is seen today December 16, 2023 and follow-up on the selective care unit. She was transferred here from the regular medical floor due to atrial fibrillation with rapid ventricular response. Her rate is better controlled to day. She is maintaining good O2 saturations in the 90s on 3 L/min per nasal cannula. She remains on a Lasix drip at 2.5 mg/h. Currently in a negative balance. Guajardo catheter in place. Glucose 144. She has been transitioned to oral amiodarone. She is anticoagulated with Eliquis. She continues on bronchodilators. The patient is seen today December 17, 2023 in follow-up on the selective care unit. She is currently sitting up in bed. She is awake and alert in no acute distress. She denies any worsening shortness of breath, cough or congestion. No chest pain. He is maintaining good O2 saturations in the 90s on 3 L/min per nasal cannula. She is afebrile. Hemodynamically stable. White count 6.0. Hemoglobin 8.7. Sodium 138. Potassium 4.1. Bicarb 24. BUN 32. Creatinine 1.42. Glucose 197. She is on oral amiodarone. Anticoagulated with Eliquis. Continued on bronchodilators. Continued on a Lasix drip at 2.5 mg/h. Currently in a negative balance. Patient was reevaluated today on 12/18/2023, remains on Lasix drip at 5 mg an hour, patient is on3 L nasal cannula with O2 sats of 92% denies any shortness of breath denies any chest pain, her creatinine is stable at 1.44, and she put out almost 1900 cc over the last 24 hours. Follow-up chest x-ray did show evidence of improvement nonetheless continues to have a small left pleural effusion yesterday The patient is seen today December 19, 2023 and follow-up on the selective care unit. She is currently resting comfortably in bed. Awake and alert in no acute distress. She is maintaining O2 saturations in the 90s on 2 L/min per nasal cannula. She does have home oxygen at the same. She is currently on a Lasix drip at 7.5 mg/h. Remains on bronchodilators. Sodium 139. Potassium 4.0. Bicarb 23. BUN 34. Creatinine 1.33. Glucose 169. Urinalysis with high white count and bacteria. Currently on Vibramycin. Anticoagulated with Eliquis. On amiodarone 400 mg twice daily. Objective - Vital Signs Vital signs: Vital Signs Temp 97.4 F L 12/19/23 13:28 Pulse 95 12/19/23 13:28 Resp 18 12/19/23 13:28 BP 109/70 12/19/23 13:28 Pulse Ox 95 12/19/23 13:28 FiO2 Intake & Output 12/18/23 12/19/23 12/19/23 18:59 06:59 18:59 Intake Total 599.167 94.875 337 Output Total 600 700 Balance -0.833 -605.125 337 Weight 131.5 kg 131.5 kg Intake: Intake, IV Titration 39.167 94.875 97 Amount Furosemide 100 mg In 39.167 94.875 97 Sodium Chloride 0.9% 90 ml @ 7.5 MG/HR 7.5 mls/hr IV .[id number] [facility] Rx#: [id number] Oral 560 0 240 Output: Urine 600 700 Other: Voiding Method Indwelling Catheter Indwelling Catheter Indwelling Catheter # Bowel Movements 1 - Exam GENERAL EXAM: Alert, 88-year-old female, on 2 L nasal cannula, in no distress. HEAD: Normocephalic and atraumatic EYES: Normal reaction of pupils, equal size. NOSE: Clear with pink turbinates. THROAT: No erythema or exudates. NECK: No masses, no JVD. CHEST: No chest wall deformity. LUNGS: Equal air entry with end expiratory wheeze. CVS: S1 and S2 normal with no audible murmur, regular rhythm. No extra heart sounds ABDOMEN: Obese abdomen, no hepatosplenomegaly, active bowel sounds, no guarding or rigidity. SPINE: No scoliosis or deformity SKIN: Left lower extremity erythema and edema CENTRAL NERVOUS SYSTEM: No focal deficits, tone is normal in all 4 extremities. EXTREMITIES: Bilateral lower extremity edema, left greater than right. Changes of chronic venous stasis. Peripheral pulses are intact. - Labs CBC & Chem 7: 12/18/23 06:47 12/19/23 08:07 Labs: Abnormal Lab Results - Last 24 Hours (Table) 12/18/23 12/18/23 12/19/23 Range/Units 16:19 19:56 05:47 BUN (7-17) mg/dL Creatinine (0.52-1.04) mg/dL Glucose (74-99) mg/dL POC Glucose (mg/dL) 200 H 181 H 167 H (70-110) mg/dL Urine Appearance (Clear) Urine Protein (Negative) Urine Glucose (UA) (Negative) Urine Blood (Negative) Ur Leukocyte Esterase (Negative) Urine RBC (0-5) /hpf Urine WBC (0-5) /hpf Calcium Oxalate Crystal (None) /hpf Urine Bacteria (None) /hpf Hyaline Casts (0-2) /lpf Urine Mucus (None) /hpf 12/19/23 12/19/23 12/19/23 Range/Units 08:07 09:22 12:11 BUN 34 H (7-17) mg/dL Creatinine 1.33 H (0.52-1.04) mg/dL Glucose 141 H (74-99) mg/dL POC Glucose (mg/dL) 169 H (70-110) mg/dL Urine Appearance Cloudy H (Clear) Urine Protein 1+ H (Negative) Urine Glucose (UA) 3+ H (Negative) Urine Blood Large H (Negative) Ur Leukocyte Esterase Large H (Negative) Urine RBC 153 H (0-5) /hpf Urine WBC 181 H (0-5) /hpf Calcium Oxalate Crystal Rare H (None) /hpf Urine Bacteria Rare H (None) /hpf Hyaline Casts 24 H (0-2) /lpf Urine Mucus Rare H (None) /hpf Assessment and Plan Assessment: Acute exacerbation of chronic systolic heart failure with an ejection fraction of 40 to 45%, severe pulmonary hypertension, moderate to severe degree of aortic stenosis Chronic hypoxic respiratory failure, currently on 3 L of oxygen by nasal cannula, likely in the base of CHF. No clear indication for pneumonia. Continued on a Lasix drip Chronic lower extremity edema with signs of chronic fluid overload, maintained on Bumex on outpatient basis Chronic dyspnea Moderate degree of aortic stenosis as evident on the echocardiogram Diabetes mellitus type 2 Chronic kidney disease, stage III Recent infection with COVID-19 infection PCR was negative at time of admission History of osteomyelitis of the left toe Diabetes mellitus type 2 Previous history of DVT and pulmonary embolism, maintained on anticoagulation with Eliquis Paroxysmal atrial fibrillation with a controlled rate and currently on anticoagulants with Eliquis Hyperlipidemia Hypertension Obesity Spinal stenosis and the patient has foot drop and she is unable to relate this point in time Poor overall functional performance based on the above-mentioned multiple comorbidities [facility] resident Plan: The patient was seen and evaluated Labs and medications reviewed Continued on a Lasix drip Anticoagulated with Eliquis Remains in a negative balance We will continue to follow I have personally seen and examined the patient, performed the documentation and the assessment and plan as written. Number of minutes spent on the visit: 10.
--- NOTE | 2023-12-19 15:01 | P.PN ---
Subjective Progress Note Date: 12/19/23 HISTORY OF PRESENT ILLNESS: 88-year-old female was recently admitted to the hospital because of congestive heart failure and respiratory distress. She was managed with IV antibiotics and was discharged home on Bumex 3 days ago. In [facility] patient started having increased cough and increased shortness of breath due to which she was sent to the hospital again. Patient has chronic lower extremity edema. Morbidly obese, BMI 51, previous history of DVT and pulmonary embolism. Type 2 diabetes, hypertension, hyperlipidemia chronic atrial fibrillation and diastolic heart failure. BUN 31, creatinine 1.3, hemoglobin 9.9 12/12 Patient seen today in follow-up. She continues to have decreased breath sounds/crackles and lower extremity edema. She is currently on Lasix 40 mg IV every 12 hours and was started on spironolactone 12.5 mg daily yesterday. Blood pressure 101/61, heart rate in the 80s, pulse ox 96% on 2 L. Left upper extremity venous Doppler duplex was negative for DVT. 12/13 Patient continues to have lower extremity edema and venous stasis changes. Her breathing is slowly improving. She has been on IV Lasix 40 mg every 12 hours increased to 80 mg every 12 hours by attending. Repeat blood work reveals BUN 35, creatinine 1.39, potassium 4.9. Blood sugar 105/73, heart rate is in the 70s. Patient is currently on O2 at 3 L nasal cannula. 12/14 Patient is a low blood pressure reading this morning of 79/53 and repeat is at 92/60. Heart rate is in the 70s and 80s. Attending has decreased IV Lasix to 40 mg every 12 hours. Patient appears to have a documented weight loss of 7 kg but urine output has been minimal but patient is urinating in brief. Guajardo catheter has been ordered. Requested evaluation for TAVR procedure but patient does not meet criteria as severe aortic stenosis is necessary to meet criteria. Chest x-ray performed this morning is pending. Lab work for today is pending. Most recent echocardiogram performed on 12/01/2023 revealed moderate LV systolic dysfunction. Moderate to severe aortic stenosis with peak gradient of 48 and mean gradient of 34 meeting criteria for moderate as reviewed by Dr. Ceballos. 12/15 Dr. Ceballos discussed case with Dr. Liu and recommended discontinuing the beta- shawn and IV Lasix and starting the patient on amiodarone bolus and drip as well as Lasix drip at a low dose. Patient's blood pressure has been marginal and no significant improvement with IV Lasix. Recommend blood pressure checks in both arms. Repeat blood work reveals potassium 4.8, BUN 34 creatinine 1.6. Patient has been afebrile, blood pressure 102/71, heart rate in the 80s. Yesterday, Aldactone was discontinued and follow-up was decreased to 25 mg twice daily due to consistently low blood pressure readings. December 16, 2023 Patient examined this morning at the bedside. Patient continues to report mild shortness of breath. She denies chest pain or pressure. Telemetry reveals atrial fibrillation with heart in the 80s. She remains on IV Amio. She also remains on a Lasix drip at 2.5 mg an hour. Blood pressure is currently stable. December 17, 2023 Patient examined this morning at the bedside. Patient denies chest pain or pressure. She reports improvement in her shortness of breath. She remains on a Lasix drip at 5 mg an hour. Creatinine today 1.42. Blood pressure is stable. December 18, 2023 Patient examined this morning at the bedside. Patient denies chest pain or pressure. She currently denies shortness of breath. She remains on Lasix drip at 5 mg an hour. Creatinine remained stable today at 1.44. Blood pressure 109/71. Urine output over the last 24 hours is 1900 cc. 12/19 Patient remains on Lasix drip at 7.5 mg/h. She continues to have lower extremity edema and fluid overload. Blood pressure is stable at 109/70, heart rate is in the 60s to 90s. Repeat blood work reveals BUN 34 creatinine 1.33, potassium 4. Patient is in a negative fluid balance. Patient peers to be down 9 kg since admission on 12/11. PHYSICAL EXAM: VITAL SIGNS: Reviewed. GENERAL: Well-developed in no acute distress. NECK: Supple. No JVD or thyromegaly LUNGS: Respirations even and unlabored. Lungs diminished bilaterally HEART: Irregular rate and rhythm. S1 and S2 heard. Systolic murmur noted. EXTREMITIES: Normal range of motion. No clubbing or cyanosis. Peripheral pulses intact. 3+ bilateral lower extremity edema ASSESSMENT: Acute on chronic HFREF exacerbation . EF 40-45% moderate LVH Moderate aortic stenosis Chronic lower extremity edema Pulmonary hypertension Type II Diabetes CKD stage III Recent COVID-19 infection. Post viral cough History of DVT and pulmonary embolism on anticoagulation Chronic atrial fibrillation Hypertension Dyslipidemia Morbid obesity PLAN: Continue Lasix 7.5 mg an hour Daily weights, accurate intake and output, and monitoring of kidney function Continue to monitor blood pressure Further recommendations pending patient course Nurse practitioner note has been reviewed by physician. Signing provider agrees with the documented findings, assessment, and plan of care documented by USED [employer] SALES REPRESENTATIVE as a scribe. Objective - Vital Signs Vital signs: Vital Signs Temp 97.4 F L 12/19/23 13:28 Pulse 95 12/19/23 13:28 Resp 18 12/19/23 13:28 BP 109/70 12/19/23 13:28 Pulse Ox 95 12/19/23 13:28 FiO2 Intake & Output 12/18/23 12/19/23 12/19/23 18:59 06:59 18:59 Intake Total 599.167 94.875 337 Output Total 600 700 Balance -0.833 -605.125 337 Weight 131.5 kg 131.5 kg Intake: Intake, IV Titration 39.167 94.875 97 Amount Furosemide 100 mg In 39.167 94.875 97 Sodium Chloride 0.9% 90 ml @ 7.5 MG/HR 7.5 mls/hr IV .[id number] [facility] Rx#: [id number] Oral 560 0 240 Output: Urine 600 700 Other: Voiding Method Indwelling Catheter Indwelling Catheter Indwelling Catheter # Bowel Movements 1 - Labs CBC & Chem 7: 12/18/23 06:47 12/19/23 08:07 Labs: Abnormal Lab Results - Last 24 Hours (Table) 12/18/23 12/18/23 12/19/23 Range/Units 16:19 19:56 05:47 BUN (7-17) mg/dL Creatinine (0.52-1.04) mg/dL Glucose (74-99) mg/dL POC Glucose (mg/dL) 200 H 181 H 167 H (70-110) mg/dL Urine Appearance (Clear) Urine Protein (Negative) Urine Glucose (UA) (Negative) Urine Blood (Negative) Ur Leukocyte Esterase (Negative) Urine RBC (0-5) /hpf Urine WBC (0-5) /hpf Calcium Oxalate Crystal (None) /hpf Urine Bacteria (None) /hpf Hyaline Casts (0-2) /lpf Urine Mucus (None) /hpf 12/19/23 12/19/23 12/19/23 Range/Units 08:07 09:22 12:11 BUN 34 H (7-17) mg/dL Creatinine 1.33 H (0.52-1.04) mg/dL Glucose 141 H (74-99) mg/dL POC Glucose (mg/dL) 169 H (70-110) mg/dL Urine Appearance Cloudy H (Clear) Urine Protein 1+ H (Negative) Urine Glucose (UA) 3+ H (Negative) Urine Blood Large H (Negative) Ur Leukocyte Esterase Large H (Negative) Urine RBC 153 H (0-5) /hpf Urine WBC 181 H (0-5) /hpf Calcium Oxalate Crystal Rare H (None) /hpf Urine Bacteria Rare H (None) /hpf Hyaline Casts 24 H (0-2) /lpf Urine Mucus Rare H (None) /hpf
[2023-12-19 16:46] LABS: Glucose,Whole Blood 172 mg/dL (70-110)
[2023-12-19 20:10] LABS: Glucose,Whole Blood 181 mg/dL (70-110)
[2023-12-20 06:02] LABS: Glucose,Whole Blood 162 mg/dL (70-110)
[2023-12-20 11:31] LABS: Glucose,Whole Blood 175 mg/dL (70-110)
--- NOTE | 2023-12-20 14:07 | P.PN ---
Subjective Progress Note Date: 12/20/23 Principal diagnosis: CHF. This 88-year-old female patient is being readmitted to the hospital due to concerns of some respiratory distress. While at the group home, the patient was being moved around and she felt slightly more short of breath and for that reason she was brought into the hospital for further investigation. She has a long list of medical problems and comorbidities. She is known to me from previous admissions. She denies having any chest pain. No altered mentation. She has chronic edema lower extremities bilaterally and the patient has been taking diuretics on outpatient basis. Her mobility is limited. No altered mentation. I reviewed the chest x-ray of the chest that shows, thyromegaly and mild pulmonary vascular congestion. She has been morbidly obese with a body mass index of 51.6. She has previous history of DVT and pulmonary embolism. She has diabetes mellitus type 2, hypertension hyperlipidemia and spinal stenosis along with chronic A. fib and diastolic heart failure and chronic venous stasis edema lower extremities bilaterally. She was taking Bumex on outpatient basis 1 mg daily basis. No fever. No altered mentation. The echoes at 6.7 with a hemoglobin of 9.9. BUN is at 30 with creatinine 1.38 and her renal function stable since her discharge from the hospital. Sodium level is at 138. The patient is seen today 12/12/2023 and follow-up on the regular medical floor. She is currently resting comfortably in bed. Awake and alert in no acute distress. She is maintaining O2 saturation in the 90s on 2 L/m per nasal cannula. She's been afebrile. Hemodynamically stable. She did have some left upper extremity edema. Doppler was negative for DVT. White count 7.4. Hemoglobin 9.1. Platelets 92,000. Sodium 140. Potassium 5.0. Bicarb 22. BUN 81. Creatinine 1.5. Glucose 119. She is continued on bronchodilators. Anticoagulated without this. Remains on IV diuretics. No accurate I&O. The patient is seen today December 13, 2023 and follow-up on the regular medical floor. She is currently resting flat in bed. Awake and alert in no acute distress. She is maintaining O2 saturation in the 90s on 3 L/min per nasal cannula. She continues with lower extremity edema and changes of chronic venous stasis. She remains on DuoNeb ventilations, Pulmicort inhalations. Remains on IV Lasix along with Aldactone. Anticoagulated with Xarelto. No accurate I&O. Sodium 137. Potassium 4.9. Bicarb 21. BUN 35. Creatinine 1.39. Glucose 111. The patient is seen today December 14, 2023 and follow-up on the regular medical floor. She is currently sitting up in bed. Awake and alert in no acute distres s. Denies any worsening shortness of breath, cough or congestion. She is maintaining O2 saturations in the 90s on 2 L/min per nasal cannula. She has been afebrile. Hemodynamically stable. X-ray continues to show cardiomegaly with mild pulmonary vascular congestion. No focal consolidation. No pneumothorax. No pleural effusion. Sodium 138. Potassium 4.5. Bicarb 23. BUN 36. Creatinine 1.44. Glucose 119. She remains on IV diuretics. Anticoagulated with Eliquis. Continued on bronchodilators. The patient is seen today December 15, 2023 in follow-up on the regular medical floor. She is resting comfortably in bed. Awake and alert in no acute distress. Maintaining O2 saturations in the 90s on 3 L/min per nasal cannula. Ssodium 139. Potassium 4.8. Bicarb 20. BUN 35. Creatinine 1.6. Glucose 132. She is continued on bronchodilators. Anticoagulated with Eliquis. She has b een initiated on a Lasix drip at 2.5 mg/h. She is awaiting transfer to selective care unit for amiodarone infusion. The patient is seen today December 16, 2023 and follow-up on the selective care unit. She was transferred here from the regular medical floor due to atrial fibrillation with rapid ventricular response. Her rate is better controlled today. She is maintaining good O2 saturations in the 90s on 3 L/min per nasal cannula. She remains on a Lasix drip at 2.5 mg/h. Currently in a negative balance. Guajardo catheter in place. Glucose 144. She has been transitioned to oral amiodarone. She is anticoagulated with Eliquis. She continues on bronchodilators. The patient is seen today December 17, 2023 in follow-up on the selective care unit. She is currently sitting up in bed. She is awake and alert in no acute distress. She denies any worsening shortness of breath, cough or congestion. No chest pain. He is maintaining good O2 saturations in the 90s on 3 L/min per nasal cannula. She is afebrile. Hemodynamically stable. White count 6.0. Hemoglobin 8.7. Sodium 138. Potassium 4.1. Bicarb 24. BUN 32. Creatinine 1.42. Glucose 197. She is on oral amiodarone. Anticoagulated with Eliquis. Continued on bronchodilators. Continued on a Lasix drip at 2.5 mg/h. Currently in a negative balance. Patient was reevaluated today on 12/18/2023, remains on Lasix drip at 5 mg an hour, patient is on3 L nasal cannula with O2 sats of 92% denies any shortness of breath denies any chest pain, her creatinine is stable at 1.44, and she put out almost 1900 cc over the last 24 hours. Follow-up chest x-ray did show evidence of improvement nonetheless continues to have a small left pleural effusion yesterday The patient is seen today December 19, 2023 and follow-up on the selective care unit. She is currently resting comfortably in bed. Awake and alert in no acute distress. She is maintaining O2 saturations in the 90s on 2 L/min per nasal cannula. She does have home oxygen at the same. She is currently on a Lasix drip at 7.5 mg/h. Remains on bronchodilators. Sodium 139. Potassium 4.0. Bicarb 23. BUN 34. Creatinine 1.33. Glucose 169. Urinalysis with high white count and bacteria. Currently on Vibramycin. Anticoagulated with Eliquis. On amiodarone 400 mg twice daily. Progress note dated December 20, 2023. This is an 88-year-old female who is seen in room 383. The patient was admitted with respiratory distress and hypoxemia, secondary to CHF. The patient currently is on 2 L of oxygen by nasal cannula. She is receiving a Lasix drip at 7.5 mg an hour. She is not receiving any additional IV fluids. Laboratory data today includes a glucose of 175. There is no recent chest x-ray. Objective - Vital Signs Vital signs: Vital Signs Temp 97.5 F L 12/20/23 11:43 Pulse 80 12/20/23 12:07 Resp 24 12/20/23 11:43 BP 173/78 12/20/23 11:43 Pulse Ox 95 12/20/23 11:43 FiO2 Intake & Output 12/19/23 12/20/23 12/20/23 18:59 06:59 18:59 Intake Total 697 84.5 333.875 Output Total 1200 1150 Balance -503 -1065.5 333.875 Weight 131.5 kg 145.5 kg Intake: Intake, IV Titration 97 84.5 93.875 Amount Furosemide 100 mg In 97 84.5 93.875 Sodium Chloride 0.9% 90 ml @ 7.5 MG/HR 7.5 mls/hr IV .[id number] [facility] Rx#: [id number] Oral 600 240 Output: Urine 1200 1150 Other: Voiding Method Indwelling Catheter Indwelling Catheter Indwelling Catheter # Bowel Movements 1 1 - Exam No acute distress, oriented 3. Currently on 2 L of oxygen. HEENT examination is grossly unremarkable. Mucous membranes are moist. No oral lesions. Neck supple. Full range of motion. No adenopathy thyromegaly or neck vein distention. Cardiovascular examination reveals regular rhythm rate. S1-S2 normal. No S3 or S4. No discernible murmur noted. Heart sounds are distant. Heart rate 80 bpm. Lungs reveal basilar crackles. No wheezes or rhonchi. Breath sounds equal. Abdomen soft bowel sounds are heard. No masses or tenderness. Extremities are intact. Significant lower extremity edema, with chronic venous stasis. No cyanosis or clubbing. Skin is without rash or lesion. Neurologic examination is brief but nonfocal. - Labs CBC & Chem 7: 12/18/23 06:47 12/19/23 08:07 Labs: Abnormal Lab Results - Last 24 Hours (Table) 12/19/23 12/19/23 12/20/23 Range/Units 16:26 20:08 05:59 POC Glucose (mg/dL) 172 H 181 H 162 H (70-110) mg/dL 12/20/23 Range/Units 11:28 POC Glucose (mg/dL) 175 H (70-110) mg/dL Assessment and Plan Assessment: Acute exacerbation of chronic systolic heart failure with an ejection fraction of 40 to 45%, severe pulmonary hypertension, moderate to severe degree of aortic stenosis. Chronic hypoxic respiratory failure, currently on 3 L of oxygen by nasal cannula, likely in the base of CHF. Chronic lower extremity edema with signs of chronic fluid overload. Chronic dyspnea. Moderate degree of aortic stenosis. Diabetes mellitus type 2. Chronic kidney disease, stage III. Recent infection with COVID-19 infection. History of osteomyelitis of the left toe. Previous history of DVT and pulmonary embolism. Paroxysmal atrial fibrillation with a controlled rate. Hyperlipidemia. Hypertension. Obesity. Spinal stenosis. Poor overall functional performance. detention resident. Plan: Plan dated December 20, 2023. The patient is seen today in room 383. She is currently on 2 L of oxygen. The patient is getting a Lasix drip at 7.5 mg an hour. We will continue to follow. Labs, x-rays, medications are reviewed. The patient's overall prognosis remains guarded. She still has quite a bit of lower extremity edema. She is a DO NOT RESUSCITATE patient. Prognosis is guarded. Time with Patient: Less than 30
[2023-12-20] MEDS: metOLazone 5 MG TAB PO SCH (16:13)
--- NOTE | 2023-12-20 16:40 | P.PN ---
Subjective Progress Note Date: 12/20/23 HISTORY OF PRESENT ILLNESS: 88-year-old female was recently admitted to the hospital because of congestive heart failure and respiratory distress. She was managed with IV antibiotics and was discharged home on Bumex 3 days ago. In alf patient started having increased cough and increased shortness of breath due to which she was sent to the hospital again. Patient has chronic lower extremity edema. Morbidly obese, BMI 51, previous history of DVT and pulmonary embolism. Type 2 diabetes, hypertension, hyperlipidemia chronic atrial fibrillation and diastolic heart failure. BUN 31, creatinine 1.3, hemoglobin 9.9 12/12 Patient seen today in follow-up. She continues to have decreased breath sounds/crackles and lower extremity edema. She is currently on Lasix 40 mg IV every 12 hours and was started on spironolactone 12.5 mg daily yesterday. Blood pressure 101/61, heart rate in the 80s, pulse ox 96% on 2 L. Left upper extremity venous Doppler duplex was negative for DVT. 12/13 Patient continues to have lower extremity edema and venous stasis changes. Her breathing is slowly improving. She has been on IV Lasix 40 mg every 12 hours increased to 80 mg every 12 hours by attending. Repeat blood work reveals BUN 35, creatinine 1.39, potassium 4.9. Blood sugar 105/73, heart rate is in the 70s. Patient is currently on O2 at 3 L nasal cannula. 12/14 Patient is a low blood pressure reading this morning of 79/53 and repeat is at 92/60. Heart rate is in the 70s and 80s. Attending has decreased IV Lasix to 40 mg every 12 hours. Patient appears to have a documented weight loss of 7 kg but urine output has been minimal but patient is urinating in brief. Guajardo catheter has been ordered. Requested evaluation for TAVR procedure but patient does not meet criteria as severe aortic stenosis is necessary to meet criteria. Chest x-ray performed this morning is pending. Lab work for today is pending. Most recent echocardiogram performed on 12/01/2023 revealed moderate LV systolic dysfunction. Moderate to severe aortic stenosis with peak gradient of 48 and mean gradient of 34 meeting criteria for moderate as reviewed by Dr. Ceballos. 12/15 Dr. Ceballos discussed case with Dr. Liu and recommended discontinuing the beta- shawn and IV Lasix and starting the patient on amiodarone bolus and drip as well as Lasix drip at a low dose. Patient's blood pressure has been marginal and no significant improvement with IV Lasix. Recommend blood pressure checks in both arms. Repeat blood work reveals potassium 4.8, BUN 34 creatinine 1.6. Patient has been afebrile, blood pressure 102/71, heart rate in the 80s. Yesterday, Aldactone was discontinued and follow-up was decreased to 25 mg twice daily due to consistently low blood pressure readings. December 16, 2023 Patient examined this morning at the bedside. Patient continues to report mild shortness of breath. She denies chest pain or pressure. Telemetry reveals atrial fibrillation with heart in the 80s. She remains on IV Amio. She also remains on a Lasix drip at 2.5 mg an hour. Blood pressure is currently stable. December 17, 2023 Patient examined this morning at the bedside. Patient denies chest pain or pressure. She reports improvement in her shortness of breath. She remains on a Lasix drip at 5 mg an hour. Creatinine today 1.42. Blood pressure is stable. December 18, 2023 Patient examined this morning at the bedside. Patient denies chest pain or pressure. She currently denies shortness of breath. She remains on Lasix drip at 5 mg an hour. Creatinine remained stable today at 1.44. Blood pressure 109/71. Urine output over the last 24 hours is 1900 cc. 12/19 Patient remains on Lasix drip at 7.5 mg/h. She continues to have lower extremity edema and fluid overload. Blood pressure is stable at 109/70, heart rate is in the 60s to 90s. Repeat blood work reveals BUN 34 creatinine 1.33, potassium 4. Patient is in a negative fluid balance. Patient weights appear to be down 9 kg since admission on 12/11. 12/20 Patient has been maintained on Lasix drip at 7.5 mg/h and continues to have lower extremity edema and fluid overload. Blood pressure is 124/70, heart rate in the 60s to 80s, pulse ox 95% on 2 L nasal cannula. No repeat blood work for today. Patient worked with physical therapy today. PHYSICAL EXAM: VITAL SIGNS: Reviewed. GENERAL: Well-developed in no acute distress. NECK: Supple. No JVD or thyromegaly LUNGS: Respirations even and unlabored. Lungs diminished bilaterally HEART: Irregular rate and rhythm. S1 and S2 heard. Systolic murmur noted. EXTREMITIES: Normal range of motion. No clubbing or cyanosis. Peripheral pulses intact. 3+ bilateral lower extremity edema ASSESSMENT: Acute on chronic HFREF exacerbation . EF 40-45% moderate LVH Moderate aortic stenosis Chronic lower extremity edema Pulmonary hypertension Type II Diabetes CKD stage III Recent COVID-19 infection. Post viral cough History of DVT and pulmonary embolism on anticoagulation Chronic atrial fibrillation Hypertension Dyslipidemia Morbid obesity PLAN: Continue Lasix gtt 7.5 mg an hour Daily weights, accurate intake and output, and monitoring of kidney function Admit to halazone 5 mg daily Continue to monitor blood pressure Further recommendations pending patient course Nurse practitioner note has been reviewed by physician. Signing provider agrees with the documented findings, assessment, and plan of care documented by [employer] as a scribe. Objective - Vital Signs Vital signs: Vital Signs Temp 97.5 F L 12/20/23 11:43 Pulse 80 12/20/23 12:07 Resp 24 12/20/23 11:43 BP 173/78 12/20/23 11:43 Pulse Ox 95 12/20/23 11:43 FiO2 Intake & Output 12/19/23 12/20/23 12/20/23 18:59 06:59 18:59 Intake Total 697 84.5 333.875 Output Total 1200 1150 Balance -503 -1065.5 333.875 Weight 131.5 kg 145.5 kg Intake: Intake, IV Titration 97 84.5 93.875 Amount Furosemide 100 mg In 97 84.5 93.875 Sodium Chloride 0.9% 90 ml @ 7.5 MG/HR 7.5 mls/hr IV .[id number] [facility] Rx#: [id number] Oral 600 240 Output: Urine 1200 1150 Other: Voiding Method Indwelling Catheter Indwelling Catheter Indwelling Catheter # Bowel Movements 1 1 - Labs CBC & Chem 7: 12/18/23 06:47 12/19/23 08:07 Labs: Abnormal Lab Results - Last 24 Hours (Table) 12/19/23 12/19/23 12/20/23 Range/Units 16:26 20:08 05:59 POC Glucose (mg/dL) 172 H 181 H 162 H (70-110) mg/dL 12/20/23 Range/Units 11:28 POC Glucose (mg/dL) 175 H (70-110) mg/dL
--- NOTE | 2023-12-20 16:58 | P.PN ---
Subjective Progress Note Date: 12/19/23 HISTORY OF PRESENT ILLNESS This is an 88-year-old female patient of [facility], with past medical history of PE and DVT, morbid obesity, diabetes mellitus type 2, hypertension, hyperlipidemia, history of spinal stenosis status post surgery in [place], history of small bowel obstruction secondary to incarcerated umbilical hernia status post repair of the hernia with resolution of the bowel obstruction, history of atrial fibrillation, history of chronic diastolic heart failure with significant for hypertension and significant venous hypertension both lower extremities and significant edema, patient patient has been almost in a sedentary lifestyle noncompliant with her diet sitting in her wheelchair most of the day, has been on chronic diuretic use , patient was recently discharged from [facility] after she was admitted for acute on chronic systolic heart failure and she was seen by Cardiology and pulmonary and her Echocardiogram showed reduced EF 40-45% with severe Aortic stenosis and mild MR and Aortic aneurysm 4.1 cm, she was discharge 12/06/2021 and she was seen by me yesrterday at [facility] where she was short of breath withy increased weight gain she was discharged on Bumex 1 mg po daily that was increased to bid without any help , so she was sent out to [facility] for acute on chronic systolic heart failure. 12/12: Patient has been seen by cardiology and maintained on same medications. Left upper extremity duplex was negative for DVT. Patient continues to have lower extremity edema more than her baseline and bilateral crackles. Patient is also followed by pulmonary medicine. Blood pressure 101/61, heart rate in the 60s to 80s, pulse ox 91% on 2 L nasal cannula, afebrile. Repeat blood work reveals WBC 7.4, hemoglobin 9.1, platelet count 92. Electrolytes are normal, BUN 30 creatinine 1.5. Blood sugar 119. Capillary blood sugar is 468782. Patient's appetite seems to be improving. She states she worked with physical therapy by sitting on the edge of the bed for 15 minutes today. 12/13: Patient continues to have fluid overload and lower extremity edema but breathing seems to be improving. She has been on IV Lasix 40 mg every 12 hours. Repeat renal function is BUN 35 creatinine 1.39, potassium 4.9. Blood pressure 105/73, heart rate in the 70s. Patient is currently on 3 L oxygen nasal cannula. Cardiology and pulmonary medicine are following. 12/14: Patient does not appear to have significant improvement. Blood pressure was low this morning with systolic in the 70s. Yesterday we had increased her IV Lasix to 80 mg twice daily. Patient is urinating in her brief and accurate CALEB's are not available. Guajardo catheter will be placed. We will decrease IV Lasix to 40 mg twice daily, cardiology has discontinued Aldactone. Heart rate has been in the 80s, pulse ox 98% on 2 L nasal cannula. Repeat BUN 36 and creatinine 1.44. Hemoglobin is 9.5. 12/15: Case was discussed with Dr. Ceballos this morning and plan is to start patient on Lasix drip and amiodarone, discontinue beta-shawn. Patient will be transferred to the cardiac stepdown unit. Patient complains of not having a bowel movement since Tuesday and to collect suppository and enema been ordered as needed. Patient remains afebrile, heart rate in the 80s and 90s, blood pressure 102/61, pulse ox 96 to 99% on 3 L nasal cannula. Repeat blood work reveals sodium 139, potassium 4.8, BUN 34 and creatinine 1.6. Blood glucose running between 146 and 178. 12/16: Patient sitting up in bed she continues to be somewhat short of breath, she denies any chest pain, but she continues to have some dry cough, she is not spitting up any phlegm, she was started on amiodarone 400 mg twice a day, she is currently on Lasix drip at 5 mg an hour, urine output is marginal, she is continuing to have edema in both lower extremities we will continue to monitor the patient very closely, monitor electrolytes, magnesium and phosphorus. 12/17: Patient sitting up in bed she is feeling better today, she is less short of breath, she had an episode of epistaxis yesterday due to dryness because of her oxygen, she continues to be on Lasix drip at 5 mg/h, urine output is good kidney function test is stable, monitor BMP magnesium, physical therapy evaluation, continues to have swelling in both lower extremities, currently on amiodarone, echocardiogram showed ejection fraction of 40%. 12/18: Patient is feeling better today, she continues to be on Lasix drip at 5 mg an hour, we will continue to monitor the patient very closely, continue to monitor input and output and daily weight, continue with Angel Luis wrap to both lower extremities, physical therapy and Occupational Therapy evaluation, likely will be staying in the hospital for another 24 hours. 12/19: Patient is lying down in bed continues to have issues with dry cough currently on Lasix drip at 7.5 mg/h , she continues to diurese well, we will continue with monitoring her electrolytes carefully and measures her ins and out and daily weight. REVIEW OF SYSTEMS Constitutional: Reports no fever or chills, no night sweats. positive for weight change. Reports weakness, Reports fatigue, no lethargy, no daytime sleepiness. HEENT: No headache. No blurred vision or double vision, no loss of vision. No dizziness. No nasal drainage or congestion. No epistaxis. No sore throat, hard of hearing Lungs: positive for shortness of breath, positive for dry cough, no sputum production. positive for wheezing. Cardiovascular: No chest pain, positive for lower extremity edema, positive for palpitations, no paroxysmal nocturnal dyspnea. No orthopnea. No lightheadedness or dizziness. No syncopal episodes. Abdominal: No abdominal pain. positive for nausea, no vomiting. No diarrhea. No constipation. No bloody or tarry stools. Reports loss of appetite. Genitourinary: No dysuria, increased frequency, urgency. No urinary retention, positive for urinary incontinence Musculoskeletal: No myalgias. Reports muscle weakness, Reports gait dysfunction, Reports falls. positive for back pain. No neck pain. Integumentary: Reports wound to the left big toe with significant tissue edema, reports lower extremity redness, there is denuded ulcer to the left big toe Neurologic: No aphasia. No facial droop. No change in mentation. No head injury. No headache. No paralysis. No paresthesia. Psychiatric: positive for depression. No anxiety. No mood swings. Endocrine: positive for mildly abnormal blood sugars. positive for weight change. PHYSICAL EXAMINATION Gen: This is an 88-year-old female, sitting up in bed in no acute respiratory distress. HEENT: Head is atraumatic, normocephalic. Pupils equal, round. Sclerae is anicteric, mucous membranes of the mouth are somewhat dry, there is minimal thrush. NECK: Supple. No JVD. No lymphadenopathy. No thyromegaly. LUNGS: Decreased breath sounds at the bases, few rhonchi, minimal expiratory wheezes, no chest wall tenderness, no intercostal retractions. HEART: first heart sound is depressed, second heart sound is normal, irregularly irregular, there is systolic ejection murmur 2/6 located at the left sternal border. ABDOMEN: morbidly obese abdomen, soft nontender nondistended, positive bowel sounds. EXTREMITIES: 2+ bilateral pitting edema to the lower extremities, chronic stasis dermatitis, there is bilateral foot drop. NEUROLOGICAL: Patient is awake, alert and oriented x3. Cranial nerves 2 through 12 are grossly intact significant weakness to both lower extremity his right more than left, bilateral foot drop ASSESSMENT AND PLAN 1. Acute on chronic systolic heart failure. , continue Lasix drip at 5mg/h continue amiodarone 400 mg orally twice every day.. Echocardiogram was done last week showed LVF 40 % with moderate , we will continue with Farxiga 10 mg po daily, continue to monitor electrolytes and renal function, we will continue with Lasix drip at 7.5 mg/h 2. Left lower lobe pneumonia. Resolved 3. Chronic atrial fibrillation. we will continue with Aniodarone 400 mg po bid and Eliquis 2.5 mg po bid 4. Anemia of chronic diseases. Stable at this time. 5. 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 Continue eliquis 2.5 mg twice daily. Patient recently underwent Malik filter on November 2019 prior to laminectomy surgery. 6. Valvular heart disease with severe tricuspid regurgitation, mild-mod regurgitation moderate aortic stenosis. Case reviewed by Dr. Ceballos and he has reviewed echocardiogram, patient is actually a moderate aortic stenosis and does not qualify for TAVR procedure. 7. Severe pulmonary hypertension with RVSP 60 mmHg. we will continue with Furosemide drip 7.5 mg /h 8. Hypertension and hypertensive cardiovascular disease.we will continue to monitor her BP was marginal 9. Hyperlipidemia. Continue atorvastatin 10 mg at bedtime. 10. Diabetes mellitus type 2. Continue patient on Farxiga 10 mg po daily, along with SSI 11. Spinal stenosis status post laminectomy, with bilateral foot drop 12. Recurrent depression. Continue patient on Effexor 75 mg orally once every day. 13. Gastroesophageal reflux disease and GI prophylaxis. Protonix 40 mg po daily. 14. Thrombocytopenia. Monitor platelets. 15. DVT prophylaxis. Eliquis 2.5 mg orally twice every day. 16. Medical debility. Physical therapy evaluation. 17. No code. 18. Poor prognosis. Objective - Vital Signs Vital signs: Vital Signs Temp 97.8 F 12/20/23 16:00 Pulse 81 12/20/23 16:01 Resp 22 12/20/23 16:00 BP 124/70 12/20/23 16:00 Pulse Ox 95 12/20/23 16:00 FiO2 Intake & Output 12/19/23 12/20/23 12/20/23 18:59 06:59 18:59 Intake Total 697 84.5 333.875 Output Total 1200 1150 Balance -503 -1065.5 333.875 Weight 131.5 kg 145.5 kg Intake: Intake, IV Titration 97 84.5 93.875 Amount Furosemide 100 mg In 97 84.5 93.875 Sodium Chloride 0.9% 90 ml @ 7.5 MG/HR 7.5 mls/hr IV .[id number] [facility] Rx#: [id number] Oral 600 240 Output: Urine 1200 1150 Other: Voiding Method Indwelling Catheter Indwelling Catheter Indwelling Catheter # Bowel Movements 1 1 - Labs CBC & Chem 7: 12/18/23 06:47 12/19/23 08:07 Labs: Abnormal Lab Results - Last 24 Hours (Table) 12/19/23 12/20/23 12/20/23 Range/Units 20:08 05:59 11:28 POC Glucose (mg/dL) 181 H 162 H 175 H (70-110) mg/dL
--- NOTE | 2023-12-20 17:01 | P.PN ---
Subjective Progress Note Date: 12/20/23 HISTORY OF PRESENT ILLNESS This is an 88-year-old female patient of [facility], with past medical history of PE and DVT, morbid obesity, diabetes mellitus type 2, hypertension, hyperlipidemia, history of spinal stenosis status post surgery in [place], history of small bowel obstruction secondary to incarcerated umbilical hernia status post repair of the hernia with resolution of the bowel obstruction, history of atrial fibrillation, history of chronic diastolic heart failure with significant for hypertension and significant venous hypertension both lower extremities and significant edema, patient patient has been almost in a sedentary lifestyle noncompliant with her diet sitting in her wheelchair most of the day, has been on chronic diuretic use , patient was recently discharged from [facility] after she was admitted for acute on chronic systolic heart failure and she was seen by Cardiology and pulmonary and her Echocardiogram showed reduced EF 40-45% with severe Aortic stenosis and mild MR and Aortic aneurysm 4.1 cm, she was discharge 12/06/2021 and she was seen by me yesrterday at [facility] where she was short of breath withy increased weight gain she was discharged on Bumex 1 mg po daily that was increased to bid without any help , so she was sent out to [facility] for acute on chronic systolic heart failure. 12/12: Patient has been seen by cardiology and maintained on same medications. Left upper extremity duplex was negative for DVT. Patient continues to have lower extremity edema more than her baseline and bilateral crackles. Patient is also followed by pulmonary medicine. Blood pressure 101/61, heart rate in the 60s to 80s, pulse ox 91% on 2 L nasal cannula, afebrile. Repeat blood work reveals WBC 7.4, hemoglobin 9.1, platelet count 92. Electrolytes are normal, BUN 30 creatinine 1.5. Blood sugar 119. Capillary blood sugar is 609706. Patient's appetite seems to be improving. She states she worked with physical therapy by sitting on the edge of the bed for 15 minutes today. 12/13: Patient continues to have fluid overload and lower extremity edema but breathing seems to be improving. She has been on IV Lasix 40 mg every 12 hours. Repeat renal function is BUN 35 creatinine 1.39, potassium 4.9. Blood pressure 105/73, heart rate in the 70s. Patient is currently on 3 L oxygen nasal cannula. Cardiology and pulmonary medicine are following. 12/14: Patient does not appear to have significant improvement. Blood pressure was low this morning with systolic in the 70s. Yesterday we had increased her IV Lasix to 80 mg twice daily. Patient is urinating in her brief and accurate CALEB's are not available. Guajardo catheter will be placed. We will decrease IV Lasix to 40 mg twice daily, cardiology has discontinued Aldactone. Heart rate has been in the 80s, pulse ox 98% on 2 L nasal cannula. Repeat BUN 36 and creatinine 1.44. Hemoglobin is 9.5. 12/15: Case was discussed with Dr. Ceballos this morning and plan is to start patient on Lasix drip and amiodarone, discontinue beta-shawn. Patient will be transferred to the cardiac stepdown unit. Patient complains of not having a bowel movement since Tuesday and to collect suppository and enema been ordered as needed. Patient remains afebrile, heart rate in the 80s and 90s, blood pressure 102/61, pulse ox 96 to 99% on 3 L nasal cannula. Repeat blood work reveals sodium 139, potassium 4.8, BUN 34 and creatinine 1.6. Blood glucose running between 146 and 178. 12/16: Patient sitting up in bed she continues to be somewhat short of breath, she denies any chest pain, but she continues to have some dry cough, she is not spitting up any phlegm, she was started on amiodarone 400 mg twice a day, she is currently on Lasix drip at 5 mg an hour, urine output is marginal, she is continuing to have edema in both lower extremities we will continue to monitor the patient very closely, monitor electrolytes, magnesium and phosphorus. 12/17: Patient sitting up in bed she is feeling better today, she is less short of breath, she had an episode of epistaxis yesterday due to dryness because of her oxygen, she continues to be on Lasix drip at 5 mg/h, urine output is good kidney function test is stable, monitor BMP magnesium, physical therapy evaluation, continues to have swelling in both lower extremities, currently on amiodarone, echocardiogram showed ejection fraction of 40%. 12/18: Patient is feeling better today, she continues to be on Lasix drip at 5 mg an hour, we will continue to monitor the patient very closely, continue to monitor input and output and daily weight, continue with Angel Luis wrap to both lower extremities, physical therapy and Occupational Therapy evaluation, likely will be staying in the hospital for another 24 hours. 12/19: Patient is lying down in bed continues to have issues with dry cough currently on Lasix drip at 7.5 mg/h , she continues to diurese well, we will continue with monitoring her electrolytes carefully and measures her ins and out and daily weight. 12/20: Patient is doing better today, no new issues still with some dry cough,continues to have lasix drip and she is making good urine output, she is less short of breath, she continues to have edema in both legs better though, she has a good bowel movement today, we will continue with current treatment plan REVIEW OF SYSTEMS Constitutional: Reports no fever or chills, no night sweats. positive for weight change. Reports weakness, Reports fatigue, no lethargy, no daytime sleepiness. HEENT: No headache. No blurred vision or double vision, no loss of vision. No dizziness. No nasal drainage or congestion. No epistaxis. No sore throat, hard of hearing Lungs: positive for shortness of breath, positive for dry cough, no sputum prod uction. positive for wheezing. Cardiovascular: No chest pain, positive for lower extremity edema, positive for palpitations, no paroxysmal nocturnal dyspnea. No orthopnea. No lightheadedness or dizziness. No syncopal episodes. Abdominal: No abdominal pain. positive for nausea, no vomiting. No diarrhea. No constipation. No bloody or tarry stools. Reports loss of appetite. Genitourinary: No dysuria, increased frequency, urgency. No urinary retention, positive for urinary incontinence Musculoskeletal: No myalgias. Reports muscle weakness, Reports gait dysfunction, Reports falls. positive for back pain. No neck pain. Integumentary: Reports wound to the left big toe with significant tissue edema, reports lower extremity redness, there is denuded ulcer to the left big toe Neurologic: No aphasia. No facial droop. No change in mentation. No head injury. No headache. No paralysis. No paresthesia. Psychiatric: positive for depression. No anxiety. No mood swings. Endocrine: positive for mildly abnormal blood sugars. positive for weight change. PHYSICAL EXAMINATION Gen: This is an 88-year-old female, sitting up in bed in no acute respiratory distress. HEENT: Head is atraumatic, normocephalic. Pupils equal, round. Sclerae is anicteric, mucous membranes of the mouth are somewhat dry, there is minimal thrush. NECK: Supple. No JVD. No lymphadenopathy. No thyromegaly. LUNGS: Decreased breath sounds at the bases, few rhonchi, minimal expiratory wheezes, no chest wall tenderness, no intercostal retractions. HEART: first heart sound is depressed, second heart sound is normal, irregularly irregular, there is systolic ejection murmur 2/6 located at the left sternal border. ABDOMEN: morbidly obese abdomen, soft nontender nondistended, positive bowel sounds. EXTREMITIES: 2+ bilateral pitting edema to the lower extremities, chronic stasis dermatitis, there is bilateral foot drop. NEUROLOGICAL: Patient is awake, alert and oriented x3. Cranial nerves 2 through 12 are grossly intact significant weakness to both lower extremity his right more than left, bilateral foot drop ASSESSMENT AND PLAN 1. Acute on chronic systolic heart failure. , continue Lasix drip at 5mg/h continue amiodarone 400 mg orally twice every day.. Echocardiogram was done last week showed LVF 40 % with moderate , we will continue with Farxiga 10 mg po daily, continue to monitor electrolytes and renal function, we will continue with Lasix drip at 7.5 mg/h 2. Left lower lobe pneumonia. Resolved 3. Chronic atrial fibrillation. we will continue with Aniodarone 400 mg po bid and Eliquis 2.5 mg po bid 4. Anemia of chronic diseases. Stable at this time. 5. 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 Continue eliquis 2.5 mg twice daily. Patient recently underwent Malik filter on November 2019 prior to laminectomy surgery. 6. Valvular heart disease with severe tricuspid regurgitation, mild-mod regurgitation moderate aortic stenosis. Case reviewed by Dr. Ceballos and he has reviewed echocardiogram, patient is actually a moderate aortic stenosis and does not qualify for TAVR procedure. 7. Severe pulmonary hypertension with RVSP 60 mmHg. we will continue with Furosemide drip 7.5 mg /h 8. Hypertension and hypertensive cardiovascular disease.we will continue to monitor her BP was marginal 9. Hyperlipidemia. Continue atorvastatin 10 mg at bedtime. 10. Diabetes mellitus type 2. Continue patient on Farxiga 10 mg po daily, along with SSI 11. Spinal stenosis status post laminectomy, with bilateral foot drop 12. Recurrent depression. Continue patient on Effexor 75 mg orally once every day. 13. Gastroesophageal reflux disease and GI prophylaxis. Protonix 40 mg po daily. 14. Thrombocytopenia. Monitor platelets. 15. DVT prophylaxis. Eliquis 2.5 mg orally twice every day. 16. Medical debility. Physical therapy evaluation. 17. No code. 18. Poor prognosis. Objective - Vital Signs Vital signs: Vital Signs Temp 97.8 F 12/20/23 16:00 Pulse 81 12/20/23 16:01 Resp 22 12/20/23 16:00 BP 124/70 12/20/23 16:00 Pulse Ox 95 12/20/23 16:00 FiO2 Intake & Output 12/19/23 12/20/23 12/20/23 18:59 06:59 18:59 Intake Total 697 84.5 333.875 Output Total 1200 1150 Balance -503 -1065.5 333.875 Weight 131.5 kg 145.5 kg Intake: Intake, IV Titration 97 84.5 93.875 Amount Furosemide 100 mg In 97 84.5 93.875 Sodium Chloride 0.9% 90 ml @ 7.5 MG/HR 7.5 mls/hr IV .[id number] [facility] Rx#: [id number] Oral 600 240 Output: Urine 1200 1150 Other: Voiding Method Indwelling Catheter Indwelling Catheter Indwelling Catheter # Bowel Movements 1 1 - Labs CBC & Chem 7: 12/18/23 06:47 12/19/23 08:07 Labs: Abnormal Lab Results - Last 24 Hours (Table) 12/19/23 12/20/23 12/20/23 Range/Units 20:08 05:59 11:28 POC Glucose (mg/dL) 181 H 162 H 175 H (70-110) mg/dL
[2023-12-20 17:04] LABS: Glucose,Whole Blood 206 mg/dL (70-110)
[2023-12-20 19:59] LABS: Glucose,Whole Blood 143 mg/dL (70-110)
[2023-12-20] MEDS: diphenhydrAMINE 25 MG CAP ONE (21:31)
[2023-12-21 05:55] LABS: Glucose,Whole Blood 202 mg/dL (70-110)
[2023-12-21 07:06] LABS: ALT 12 U/L (4-34); AST 21 U/L (14-36); African American GFR (CKD) 35 (>60 ml/min/1.73 sqM); Albumin 3.1 g/dL (3.5-5.0); Alkaline Phosphatase 95 U/L (38-126); Anion Gap 9 mmol/L; Blood Urea Nitrogen 35 mg/dL (7-17); Calcium 8.7 mg/dL (8.4-10.2); Carbon Dioxide 27 mmol/L (22-30); Chloride 103 mmol/L (98-107); Glucose 160 mg/dL (74-99); Non-African American GFR(CKD) 30 (>60 ml/min/1.73 sqM); Potassium 3.3 mmol/L (3.5-5.1); Sodium 139 mmol/L (137-145); Total Bilirubin 0.8 mg/dL (0.2-1.3); Total Protein 6.7 g/dL (6.3-8.2)
[2023-12-21 07:39] LABS: Anisocytosis Slight; Basophils % (A) 1 %; Eosinophils # (A) 0.2 k/uL (0-0.7); Hypochromasia Marked; Mean Platelet Volume 8.8; Monocytes # (A) 0.6 k/uL (0-1.0); Poikilocytosis Slight; RDW 17.8 % (11.5-15.5)
[2023-12-21 07:55] LABS: HGB 9.9 gm/dL (11.4-16.0); RBC 3.56 m/uL (3.80-5.40)
[2023-12-21 07:56] LABS: HCT 31.8 % (34.0-46.0); MCV 89.1 fL (80.0-100.0)
[2023-12-21 07:57] LABS: MCH 27.8 pg (25.0-35.0); MCHC 31.2 g/dL (31.0-37.0)
[2023-12-21 07:58] LABS: Platelet Count 222 k/uL (150-450)
[2023-12-21 07:59] LABS: Lymphocytes % (A) 12 %; Neutrophils % (A) 73 %
[2023-12-21 08:00] LABS: Eosinophils % (A) 4 %; Monocytes % (A) 9 %; Neutrophils # (A) 5.1 k/uL (1.3-7.7)
[2023-12-21 08:01] LABS: Lymphocytes # (A) 0.8 k/uL (1.0-4.8)
--- NOTE | 2023-12-21 08:53 | P.PN ---
Subjective Progress Note Date: 12/21/23 HISTORY OF PRESENT ILLNESS This is an 88-year-old female patient of [facility], with past medical history of PE and DVT, morbid obesity, diabetes mellitus type 2, hypertension, hyperlipidemia, history of spinal stenosis status post surgery in [place], history of small bowel obstruction secondary to incarcerated umbilical hernia status post repair of the hernia with resolution of the bowel obstruction, history of atrial fibrillation, history of chronic diastolic heart failure with significant for hypertension and significant venous hypertension both lower extremities and significant edema, patient patient has been almost in a sedentary lifestyle noncompliant with her diet sitting in her wheelchair most of the day, has been on chronic diuretic use , patient was recently discharged from [facility] after she was admitted for acute on chronic systolic heart failure and she was seen by Cardiology and pulmonary and her Echocardiogram showed reduced EF 40-45% with severe Aortic stenosis and mild MR and Aortic aneurysm 4.1 cm, she was discharge 12/06/2021 and she was seen by me yesrterday at [facility] where she was short of breath withy increased weight gain she was discharged on Bumex 1 mg po daily that was increased to bid without any help , so she was sent out to [facility] for acute on chronic systolic heart failure. 12/12: Patient has been seen by cardiology and maintained on same medications. Left upper extremity duplex was negative for DVT. Patient continues to have lower extremity edema more than her baseline and bilateral crackles. Patient is also followed by pulmonary medicine. Blood pressure 101/61, heart rate in the 60s to 80s, pulse ox 91% on 2 L nasal cannula, afebrile. Repeat blood work reveals WBC 7.4, hemoglobin 9.1, platelet count 92. Electrolytes are normal, BUN 30 creatinine 1.5. Blood sugar 119. Capillary blood sugar is [id number]. Patient's appetite seems to be improving. She states she worked with physical therapy by sitting on the edge of the bed for 15 minutes today. 12/13: Patient continues to have fluid overload and lower extremity edema but breathing seems to be improving. She has been on IV Lasix 40 mg every 12 hours. Repeat renal function is BUN 35 creatinine 1.39, potassium 4.9. Blood pressure 105/73, heart rate in the 70s. Patient is currently on 3 L oxygen nasal cannula. Cardiology and pulmonary medicine are following. 12/14: Patient does not appear to have significant improvement. Blood pressure was low this morning with systolic in the 70s. Yesterday we had increased her IV Lasix to 80 mg twice daily. Patient is urinating in her brief and accurate CALEB's are not available. Guajardo catheter will be placed. We will decrease IV Lasix to 40 mg twice daily, cardiology has discontinued Aldactone. Heart rate has been in the 80s, pulse ox 98% on 2 L nasal cannula. Repeat BUN 36 and creatinine 1.44. Hemoglobin is 9.5. 12/15: Case was discussed with Dr. Ceballos this morning and plan is to start patient on Lasix drip and amiodarone, discontinue beta-shawn. Patient will be transferred to the cardiac stepdown unit. Patient complains of not having a bowel movement since Tuesday and to collect suppository and enema been ordered as needed. Patient remains afebrile, heart rate in the 80s and 90s, blood pressure 102/61, pulse ox 96 to 99% on 3 L nasal cannula. Repeat blood work reveals sodium 139, potassium 4.8, BUN 34 and creatinine 1.6. Blood glucose running between 146 and 178. 12/16: Patient sitting up in bed she continues to be somewhat short of breath, she denies any chest pain, but she continues to have some dry cough, she is not spitting up any phlegm, she was started on amiodarone 400 mg twice a day, she is currently on Lasix drip at 5 mg an hour, urine output is marginal, she is continuing to have edema in both lower extremities we will continue to monitor the patient very closely, monitor electrolytes, magnesium and phosphorus. 12/17: Patient sitting up in bed she is feeling better today, she is less short of breath, she had an episode of epistaxis yesterday due to dryness because of her oxygen, she continues to be on Lasix drip at 5 mg/h, urine output is good kidney function test is stable, monitor BMP magnesium, physical therapy evaluation, continues to have swelling in both lower extremities, currently on amiodarone, echocardiogram showed ejection fraction of 40%. 12/18: Patient is feeling better today, she continues to be on Lasix drip at 5 mg an hour, we will continue to monitor the patient very closely, continue to monitor input and output and daily weight, continue with Angel Luis wrap to both lower extremities, physical therapy and Occupational Therapy evaluation, likely will be staying in the hospital for another 24 hours. 12/19: Patient is lying down in bed continues to have issues with dry cough currently on Lasix drip at 7.5 mg/h , she continues to diurese well, we will continue with monitoring her electrolytes carefully and measures her ins and out and daily weight. 12/20: Patient is doing better today, no new issues still with some dry cough,continues to have lasix drip and she is making good urine output, she is less short of breath, she continues to have edema in both legs better though, she has a good bowel movement today, we will continue with current treatment plan 12/21: Patient is feeling down she has no energy to do anyting still on Lasix drip at 7.5 mg/h, we will continue with that , she is depressed and she does not know if she wants to continues with this treatment, I will reach out to her daughter and we will make final decision about her care REVIEW OF SYSTEMS Constitutional: Reports no fever or chills, no night sweats. positive for weight change. Reports weakness, Reports fatigue, no lethargy, no daytime sleepiness. HEENT: No headache. No blurred vision or double vision, no loss of vision. No dizziness. No nasal drainage or congestion. No epistaxis. No sore throat, jose d of hearing Lungs: positive for shortness of breath, positive for dry cough, no sputum production. positive for wheezing. Cardiovascular: No chest pain, positive for lower extremity edema, positive for palpitations, no paroxysmal nocturnal dyspnea. No orthopnea. No lightheadedness or dizziness. No syncopal episodes. Abdominal: No abdominal pain. positive for nausea, no vomiting. No diarrhea. No constipation. No bloody or tarry stools. Reports loss of appetite. Genitourinary: No dysuria, increased frequency, urgency. No urinary retention, positive for urinary incontinence Musculoskeletal: No myalgias. Reports muscle weakness, Reports gait dysfunction, Reports falls. positive for back pain. No neck pain. Integumentary: Reports wound to the left big toe with significant tissue edema, reports lower extremity redness, there is denuded ulcer to the left big toe Neurologic: No aphasia. No facial droop. No change in mentation. No head injury. No headache. No paralysis. No paresthesia. Psychiatric: positive for depression. No anxiety. No mood swings. Endocrine: positive for mildly abnormal blood sugars. positive for weight change. PHYSICAL EXAMINATION Gen: This is an 88-year-old female, sitting up in bed in no acute respiratory distress. HEENT: Head is atraumatic, normocephalic. Pupils equal, round. Sclerae is anicteric, mucous membranes of the mouth are somewhat dry, there is minimal thrush. NECK: Supple. No JVD. No lymphadenopathy. No thyromegaly. LUNGS: Decreased breath sounds at the bases, few rhonchi, minimal expiratory wheezes, no chest wall tenderness, no intercostal retractions. HEART: first heart sound is depressed, second heart sound is normal, irregularly irregular, there is systolic ejection murmur 2/6 located at the left sternal border. ABDOMEN: morbidly obese abdomen, soft nontender nondistended, positive bowel sounds. EXTREMITIES: 2+ bilateral pitting edema to the lower extremities, chronic stasis dermatitis, there is bilateral foot drop. NEUROLOGICAL: Patient is awake, alert and oriented x3. Cranial nerves 2 through 12 are grossly intact significant weakness to both lower extremity his right more than left, bilateral foot drop ASSESSMENT AND PLAN 1. Acute on chronic systolic heart failure. , continue Lasix drip at 5mg/h continue amiodarone 400 mg orally twice every day.. Echocardiogram was done last week showed LVF 40 % with moderate , we will continue with Farxiga 10 mg po daily, continue to monitor electrolytes and renal function, we will continue with Lasix drip at 7.5 mg/h, continue with Zaroxolyn 5 mg po daily 2. Left lower lobe pneumonia. Resolved 3. Chronic atrial fibrillation. we will continue with Aniodarone 400 mg po bid and Eliquis 2.5 mg po bid 4. Anemia of chronic diseases. Stable at this time. 5. History of multiple DVTs and PE on press tender long goods anticoagulation. Continue eliquis 2.5 mg twice daily. Patient recently underwent Malik filter on November 2019 prior to laminectomy surgery. 6. Valvular heart disease with severe tricuspid regurgitation, mild-mod regurgitation moderate aortic stenosis. Case reviewed by Dr. Ceballos and he has reviewed echocardiogram, patient is actually a moderate aortic stenosis and does not qualify for TAVR procedure. 7. Severe pulmonary hypertension with RVSP 60 mmHg. we will continue with Furosemide drip 7.5 mg /h 8. Hypertension and hypertensive cardiovascular disease.we will continue to monitor her BP was marginal 9. Hyperlipidemia. Continue atorvastatin 10 mg at bedtime. 10. Diabetes mellitus type 2. Continue patient on Farxiga 10 mg po daily, along with SSI 11. Spinal stenosis status post laminectomy, with bilateral foot drop 12. Recurrent depression.Effexor 37.5 mg po daily 13. Gastroesophageal reflux disease and GI prophylaxis. Protonix 40 mg po daily. 14. Thrombocytopenia. Monitor platelets. 15. DVT prophylaxis. Eliquis 2.5 mg orally twice every day. 16. Medical debility. Physical therapy evaluation. 17. No code. 18. Poor prognosis. 19. Hypokalemia we will replace and check labs in Am including Magnesium Objective - Vital Signs Vital signs: Vital Signs Temp 97.8 F 12/21/23 08:41 Pulse 76 12/21/23 08:41 Resp 16 12/21/23 08:41 BP 138/73 12/21/23 08:41 Pulse Ox 95 12/21/23 08:41 FiO2 Intake & Output 12/20/23 12/21/23 12/21/23 18:59 06:59 18:59 Intake Total 453.875 82.25 Output Total 3600 Balance 453.875 -3517.75 Weight 116 kg Intake: Intake, IV Titration 93.875 82.25 Amount Furosemide 100 mg In 93.875 82.25 Sodium Chloride 0.9% 90 ml @ 7.5 MG/HR 7.5 mls/hr IV .[id number] [facility] Rx#: [id number] Oral 360 Output: Urine 3600 Other: Voiding Method Indwelling Catheter Indwelling Catheter # Bowel Movements 1 - Labs CBC & Chem 7: 12/21/23 06:22 12/21/23 06:22 Labs: Abnormal Lab Results - Last 24 Hours (Table) 12/20/23 12/20/23 12/20/23 Range/Units 11:28 16:58 19:55 RBC (3.80-5.40) m/uL Hgb (11.4-16.0) gm/dL Hct (34.0-46.0) % RDW (11.5-15.5) % Lymphocytes # (1.0-4.8) k/uL Potassium (3.5-5.1) mmol/L BUN (7-17) mg/dL Creatinine (0.52-1.04) mg/dL Glucose (74-99) mg/dL POC Glucose (mg/dL) 175 H 206 H 143 H (70-110) mg/dL Albumin (3.5-5.0) g/dL 12/21/23 12/21/23 12/21/23 Range/Units 05:53 06:22 06:22 RBC 3.56 L (3.80-5.40) m/uL Hgb 9.9 L (11.4-16.0) gm/dL Hct 31.8 L (34.0-46.0) % RDW 17.8 H (11.5-15.5) % Lymphocytes # 0.8 L (1.0-4.8) k/uL Potassium 3.3 L (3.5-5.1) mmol/L BUN 35 H (7-17) mg/dL Creatinine 1.54 H (0.52-1.04) mg/dL Glucose 160 H (74-99) mg/dL POC Glucose (mg/dL) 202 H (70-110) mg/dL Albumin 3.1 L (3.5-5.0) g/dL Microbiology - Last 24 Hours (Table) 12/19/23 09:22 Urine Culture - Preliminary Urine,Catheterized Gram Neg Bacilli
[2023-12-21 11:28] LABS: Glucose,Whole Blood 158 mg/dL (70-110)
[2023-12-21] MEDS: POTASSIUM CHLORIDE ER 20 MEQ TAB.ER PO STA (12:03)
[2023-12-21] MEDS: VENLAFAXINE HCL 37.5 MG TAB PO SCH (12:03)
--- NOTE | 2023-12-21 14:23 | P.PN ---
Subjective Progress Note Date: 12/21/23 Principal diagnosis: CHF. This 88-year-old female patient is being readmitted to the hospital due to concerns of some respiratory distress. While at the assisted, the patient was being moved around and she felt slightly more short of breath and for that reason she was brought into the hospital for further investigation. She has a long list of medical problems and comorbidities. She is known to me from previous admissions. She denies having any chest pain. No altered mentation. She has chronic edema lower extremities bilaterally and the patient has been taking diuretics on outpatient basis. Her mobility is limited. No altered mentation. I reviewed the chest x-ray of the chest that shows, thyromegaly and mild pulmonary vascular congestion. She has been morbidly obese with a body mass index of 51.6. She has previous history of DVT and pulmonary embolism. She has diabetes mellitus type 2, hypertension hyperlipidemia and spinal stenosis along with chronic A. fib and diastolic heart failure and chronic venous stasis edema lower extremities bilaterally. She was taking Bumex on outpatient basis 1 mg daily basis. No fever. No altered mentation. The echoes at 6.7 with a hemoglobin of 9.9. BUN is at 30 with creatinine 1.38 and her renal function stable since her discharge from the hospital. Sodium level is at 138. The patient is seen today 12/12/2023 and follow-up on the regular medical floor. She is currently resting comfortably in bed. Awake and alert in no acute distress. She is maintaining O2 saturation in the 90s on 2 L/m per nasal cannula. She's been afebrile. Hemodynamically stable. She did have some left upper extremity edema. Doppler was negative for DVT. White count 7.4. Hemoglobin 9.1. Platelets 92,000. Sodium 140. Potassium 5.0. Bicarb 22. BUN 81. Creatinine 1.5. Glucose 119. She is continued on bronchodilators. Anticoagulated without this. Remains on IV diuretics. No accurate I&O. The patient is seen today December 13, 2023 and follow-up on the regular medical floor. She is currently resting flat in bed. Awake and alert in no acute distress. She is maintaining O2 saturation in the 90s on 3 L/min per nasal cannula. She continues with lower extremity edema and changes of chronic venous stasis. She remains on DuoNeb ventilations, Pulmicort inhalations. Remains on IV Lasix along with Aldactone. Anticoagulated with Xarelto. No accurate I&O. Sodium 137. Potassium 4.9. Bicarb 21. BUN 35. Creatinine 1.39. Glucose 111. The patient is seen today December 14, 2023 and follow-up on the regular medical floor. She is currently sitting up in bed. Awake and alert in no acute distres s. Denies any worsening shortness of breath, cough or congestion. She is maintaining O2 saturations in the 90s on 2 L/min per nasal cannula. She has been afebrile. Hemodynamically stable. X-ray continues to show cardiomegaly with mild pulmonary vascular congestion. No focal consolidation. No pneumothorax. No pleural effusion. Sodium 138. Potassium 4.5. Bicarb 23. BUN 36. Creatinine 1.44. Glucose 119. She remains on IV diuretics. Anticoagulated with Eliquis. Continued on bronchodilators. The patient is seen today December 15, 2023 in follow-up on the regular medical floor. She is resting comfortably in bed. Awake and alert in no acute distress. Maintaining O2 saturations in the 90s on 3 L/min per nasal cannula. Ssodium 139. Potassium 4.8. Bicarb 20. BUN 35. Creatinine 1.6. Glucose 132. She is continued on bronchodilators. Anticoagulated with Eliquis. She has b een initiated on a Lasix drip at 2.5 mg/h. She is awaiting transfer to selective care unit for amiodarone infusion. The patient is seen today December 16, 2023 and follow-up on the selective care unit. She was transferred here from the regular medical floor due to atrial fibrillation with rapid ventricular response. Her rate is better controlled today. She is maintaining good O2 saturations in the 90s on 3 L/min per nasal cannula. She remains on a Lasix drip at 2.5 mg/h. Currently in a negative balance. Guajardo catheter in place. Glucose 144. She has been transitioned to oral amiodarone. She is anticoagulated with Eliquis. She continues on bronchodilators. The patient is seen today December 17, 2023 in follow-up on the selective care unit. She is currently sitting up in bed. She is awake and alert in no acute distress. She denies any worsening shortness of breath, cough or congestion. No chest pain. He is maintaining good O2 saturations in the 90s on 3 L/min per nasal cannula. She is afebrile. Hemodynamically stable. White count 6.0. Hemoglobin 8.7. Sodium 138. Potassium 4.1. Bicarb 24. BUN 32. Creatinine 1.42. Glucose 197. She is on oral amiodarone. Anticoagulated with Eliquis. Continued on bronchodilators. Continued on a Lasix drip at 2.5 mg/h. Currently in a negative balance. Patient was reevaluated today on 12/18/2023, remains on Lasix drip at 5 mg an hour, patient is on3 L nasal cannula with O2 sats of 92% denies any shortness of breath denies any chest pain, her creatinine is stable at 1.44, and she put out almost 1900 cc over the last 24 hours. Follow-up chest x-ray did show evidence of improvement nonetheless continues to have a small left pleural effusion yesterday The patient is seen today December 19, 2023 and follow-up on the selective care unit. She is currently resting comfortably in bed. Awake and alert in no acute distress. She is maintaining O2 saturations in the 90s on 2 L/min per nasal cannula. She does have home oxygen at the same. She is currently on a Lasix drip at 7.5 mg/h. Remains on bronchodilators. Sodium 139. Potassium 4.0. Bicarb 23. BUN 34. Creatinine 1.33. Glucose 169. Urinalysis with high white count and bacteria. Currently on Vibramycin. Anticoagulated with Eliquis. On amiodarone 400 mg twice daily. Progress note dated December 20, 2023. This is an 88-year-old female who is seen in room 383. The patient was admitted with respiratory distress and hypoxemia, secondary to CHF. The patient currently is on 2 L of oxygen by nasal cannula. She is receiving a Lasix drip at 7.5 mg an hour. She is not receiving any additional IV fluids. Laboratory data today includes a glucose of 175. There is no recent chest x-ray. Progress note dated December 21, 2023. 88-year-old female seen in room 383. Currently, the patient is on 2 L by nasal cannula. She continues on a Lasix drip at 7.5 mg an hour. She still has significant lower extremity edema. The patient is not having any signs or symptoms of overt respiratory failure. Laboratory data from today includes a white count of 7, hemoglobin 9.9, hematocrit 31.8, platelet count 222,000. Sodium 139, potassium 3.3, chlorides 103, CO2 27, BUN 35, creatinine 1.54. Glucose is 158. Albumin is 3.1. Urine sampling from December 19, was positive for gram-negative bacilli. The patient is currently not on the antibiotic, except for doxycycline, which may not cover the gram-negative bacilli in the urine. Some consideration should be given to starting the patient on ceftriaxone. We will leave that up to the primary service. Objective - Vital Signs Vital signs: Vital Signs Temp 97.8 F 12/21/23 08:41 Pulse 84 12/21/23 12:20 Resp 16 12/21/23 12:20 BP 120/68 12/21/23 12:20 Pulse Ox 96 12/21/23 12:20 FiO2 Intake & Output 12/20/23 12/21/23 12/21/23 18:59 06:59 18:59 Intake Total 453.875 82.25 120 Output Total 3600 1950 Balance 453.875 -3517.75 -1830 Weight 116 kg Intake: Intake, IV Titration 93.875 82.25 Amount Furosemide 100 mg In 93.875 82.25 Sodium Chloride 0.9% 90 ml @ 7.5 MG/HR 7.5 mls/hr IV .[id number] [facility] Rx#: [id number] Oral 360 120 Output: Urine 3600 1950 Other: Voiding Method Indwelling Catheter Indwelling Catheter Indwelling Catheter # Bowel Movements 1 - Exam No acute distress, oriented 3. Currently on 2 L of oxygen. HEENT examination is grossly unremarkable. Mucous membranes are moist. No oral lesions. Neck supple. Full range of motion. No adenopathy thyromegaly or neck vein distention. Cardiovascular examination reveals regular rhythm rate. S1-S2 normal. No S3 or S4. No discernible murmur noted. Heart sounds are distant. Heart rate 84 bpm. Lungs reveal basilar crackles. No wheezes or rhonchi. Breath sounds equal. Saturations are 96% on 2 L. Abdomen soft bowel sounds are heard. No masses or tenderness. Extremities are intact. Significant lower extremity edema, with chronic venous stasis. No cyanosis or clubbing. Skin is without rash or lesion. Neurologic examination is brief but nonfocal. - Labs CBC & Chem 7: 12/21/23 06:22 12/21/23 06:22 Labs: Abnormal Lab Results - Last 24 Hours (Table) 12/20/23 12/20/23 12/21/23 Range/Units 16:58 19:55 05:53 RBC (3.80-5.40) m/uL Hgb (11.4-16.0) gm/dL Hct (34.0-46.0) % RDW (11.5-15.5) % Lymphocytes # (1.0-4.8) k/uL Potassium (3.5-5.1) mmol/L BUN (7-17) mg/dL Creatinine (0.52-1.04) mg/dL Glucose (74-99) mg/dL POC Glucose (mg/dL) 206 H 143 H 202 H (70-110) mg/dL Albumin (3.5-5.0) g/dL 12/21/23 12/21/23 12/21/23 Range/Units 06:22 06:22 11:25 RBC 3.56 L (3.80-5.40) m/uL Hgb 9.9 L (11.4-16.0) gm/dL Hct 31.8 L (34.0-46.0) % RDW 17.8 H (11.5-15.5) % Lymphocytes # 0.8 L (1.0-4.8) k/uL Potassium 3.3 L (3.5-5.1) mmol/L BUN 35 H (7-17) mg/dL Creatinine 1.54 H (0.52-1.04) mg/dL Glucose 160 H (74-99) mg/dL POC Glucose (mg/dL) 158 H (70-110) mg/dL Albumin 3.1 L (3.5-5.0) g/dL Microbiology - Last 24 Hours (Table) 12/19/23 09:22 Urine Culture - Preliminary Urine,Catheterized Gram Neg Bacilli Assessment and Plan Assessment: Acute exacerbation of chronic systolic heart failure with an ejection fraction of 40 to 45%, severe pulmonary hypertension, moderate to severe degree of aortic stenosis. Chronic hypoxic respiratory failure, currently on 3 L of oxygen by nasal cannula, likely in the base of CHF. Chronic lower extremity edema with signs of chronic fluid overload. Chronic dyspnea. Possible urinary tract infection secondary to gram-negative bacilli. Moderate degree of aortic stenosis. Diabetes mellitus type 2. Chronic kidney disease, stage III. Recent infection with COVID-19 infection. History of osteomyelitis of the left toe. Previous history of DVT and pulmonary embolism. Paroxysmal atrial fibrillation with a controlled rate. Hyperlipidemia. Hypertension. Obesity. Spinal stenosis. Poor overall functional performance. 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 Plan: Plan dated December 20, 2023. The patient is seen today in room 383. She is currently on 2 L of oxygen. The patient is getting a Lasix drip at 7.5 mg an hour. We will continue to follow. Labs, x-rays, medications are reviewed. The patient's overall prognosis remains guarded. She still has quite a bit of lower extremity edema. She is a DO NOT RESUSCITATE patient. Prognosis is guarded. Plan dated December 21, 2023. The patient appears to be stable from the pulmonary standpoint. She is on 2 L. She continues to diurese nicely on the Lasix drip at 7.5 mg an hour. There is a gram-negative bacilli in the urine. Some consideration should be given to broadening her antibiotic coverage, with the Rocephin. Currently, the patient is currently only on Vibramycin. We will continue to follow the patient, make recommendations along the way. Labs, x-rays, and medications are reviewed. Prognosis is guarded. Time with Patient: Less than 30
--- NOTE | 2023-12-21 15:20 | P.PN ---
Subjective Progress Note Date: 12/21/23 HISTORY OF PRESENT ILLNESS: 88-year-old female was recently admitted to the hospital because of congestive heart failure and respiratory distress. She was managed with IV antibiotics and was discharged home on Bumex 3 days ago. In senior living patient started having increased cough and increased shortness of breath due to which she was sent to the hospital again. Patient has chronic lower extremity edema. Morbidly obese, BMI 51, previous history of DVT and pulmonary embolism. Type 2 diabetes, hypertension, hyperlipidemia chronic atrial fibrillation and diastolic heart failure. BUN 31, creatinine 1.3, hemoglobin 9.9 12/12 Patient seen today in follow-up. She continues to have decreased breath sounds/crackles and lower extremity edema. She is currently on Lasix 40 mg IV every 12 hours and was started on spironolactone 12.5 mg daily yesterday. Blood pressure 101/61, heart rate in the 80s, pulse ox 96% on 2 L. Left upper extremity venous Doppler duplex was negative for DVT. 12/13 Patient continues to have lower extremity edema and venous stasis changes. Her breathing is slowly improving. She has been on IV Lasix 40 mg every 12 hours increased to 80 mg every 12 hours by attending. Repeat blood work reveals BUN 35, creatinine 1.39, potassium 4.9. Blood sugar 105/73, heart rate is in the 70s. Patient is currently on O2 at 3 L nasal cannula. 12/14 Patient is a low blood pressure reading this morning of 79/53 and repeat is at 92/60. Heart rate is in the 70s and 80s. Attending has decreased IV Lasix to 40 mg every 12 hours. Patient appears to have a documented weight loss of 7 kg but urine output has been minimal but patient is urinating in brief. Guajardo catheter has been ordered. Requested evaluation for TAVR procedure but patient does not meet criteria as severe aortic stenosis is necessary to meet criteria. Chest x-ray performed this morning is pending. Lab work for today is pending. Most recent echocardiogram performed on 12/01/2023 revealed moderate LV systolic dysfunction. Moderate to severe aortic stenosis with peak gradient of 48 and mean gradient of 34 meeting criteria for moderate as reviewed by Dr. Ceballos. 12/15 Dr. Ceballos discussed case with Dr. Liu and recommended discontinuing the beta- shawn and IV Lasix and starting the patient on amiodarone bolus and drip as well as Lasix drip at a low dose. Patient's blood pressure has been marginal and no significant improvement with IV Lasix. Recommend blood pressure checks in both arms. Repeat blood work reveals potassium 4.8, BUN 34 creatinine 1.6. Patient has been afebrile, blood pressure 102/71, heart rate in the 80s. Yesterday, Aldactone was discontinued and follow-up was decreased to 25 mg twice daily due to consistently low blood pressure readings. December 16, 2023 Patient examined this morning at the bedside. Patient continues to report mild shortness of breath. She denies chest pain or pressure. Telemetry reveals atrial fibrillation with heart in the 80s. She remains on IV Amio. She also remains on a Lasix drip at 2.5 mg an hour. Blood pressure is currently stable. December 17, 2023 Patient examined this morning at the bedside. Patient denies chest pain or pressure. She reports improvement in her shortness of breath. She remains on a Lasix drip at 5 mg an hour. Creatinine today 1.42. Blood pressure is stable. December 18, 2023 Patient examined this morning at the bedside. Patient denies chest pain or pressure. She currently denies shortness of breath. She remains on Lasix drip at 5 mg an hour. Creatinine remained stable today at 1.44. Blood pressure 109/71. Urine output over the last 24 hours is 1900 cc. 12/19 Patient remains on Lasix drip at 7.5 mg/h. She continues to have lower extremity edema and fluid overload. Blood pressure is stable at 109/70, heart rate is in the 60s to 90s. Repeat blood work reveals BUN 34 creatinine 1.33, potassium 4. Patient is in a negative fluid balance. Patient weights appear to be down 9 kg since admission on 12/11. 12/20 Patient has been maintained on Lasix drip at 7.5 mg/h and continues to have lower extremity edema and fluid overload. Blood pressure is 124/70, heart rate in the 60s to 80s, pulse ox 95% on 2 L nasal cannula. No repeat blood work for today. Patient worked with physical therapy today. 12/21 Patient has been maintained on Lasix drip at 7.5 mg/h. Blood pressure is 120/68, heart rate is in the 80s. Pulse ox 96% on 2 L. Repeat blood work reveals hemoglobin of 9.9, potassium 3.3 and has been replaced, BUN 35 creatinine 1.54. Yesterday patient was started on metolazone 5 mg daily. Patient is in a negative fluid balance. Lower extremity edema is improving. MARSHALL wraps in place bilat. PHYSICAL EXAM: VITAL SIGNS: Reviewed. GENERAL: Well-developed in no acute distress. NECK: Supple. No JVD or thyromegaly LUNGS: Respirations even and unlabored. Lungs diminished bilaterally HEART: Irregular rate and rhythm. S1 and S2 heard. Systolic murmur noted. EXTREMITIES: Normal range of motion. No clubbing or cyanosis. Peripheral pulses intact. 23+ bilateral lower extremity edema ASSESSMENT: Acute on chronic HFREF exacerbation . EF 40-45% moderate LVH Moderate aortic stenosis Chronic lower extremity edema Pulmonary hypertension Type II Diabetes CKD stage III Recent COVID-19 infection. Post viral cough History of DVT and pulmonary embolism on anticoagulation Chronic atrial fibrillation Hypertension Dyslipidemia Morbid obesity PLAN: Continue Lasix gtt 7.5 mg an hour Daily weights, accurate intake and output, and monitoring of kidney function Continue patient on metolazone 5 mg daily Continue MARSHALL wraps Continue to monitor blood pressure Further recommendations pending patient course Nurse practitioner note has been reviewed by physician. Signing provider agrees with the documented findings, assessment, and plan of care documented by ASH HANDLER as a scribe. Objective - Vital Signs Vital signs: Vital Signs Temp 97.8 F 12/21/23 08:41 Pulse 84 12/21/23 12:20 Resp 16 12/21/23 12:20 BP 120/68 12/21/23 12:20 Pulse Ox 96 12/21/23 12:20 FiO2 Intake & Output 12/20/23 12/21/23 12/21/23 18:59 06:59 18:59 Intake Total 453.875 82.25 120 Output Total 3600 1950 Balance 453.875 -1567.75 -1830 Weight 116 kg Intake: Intake, IV Titration 93.875 82.25 Amount Furosemide 100 mg In 93.875 82.25 Sodium Chloride 0.9% 90 ml @ 7.5 MG/HR 7.5 mls/hr IV .[id number] [facility] Rx#: [id number] Oral 360 120 Output: Urine 3600 1950 Other: Voiding Method Indwelling Catheter Indwelling Catheter Indwelling Catheter # Bowel Movements 1 - Labs CBC & Chem 7: 12/21/23 06:22 12/21/23 06:22 Labs: Abnormal Lab Results - Last 24 Hours (Table) 12/20/23 12/20/23 12/21/23 Range/Units 16:58 19:55 05:53 RBC (3.80-5.40) m/uL Hgb (11.4-16.0) gm/dL Hct (34.0-46.0) % RDW (11.5-15.5) % Lymphocytes # (1.0-4.8) k/uL Potassium (3.5-5.1) mmol/L BUN (7-17) mg/dL Creatinine (0.52-1.04) mg/dL Glucose (74-99) mg/dL POC Glucose (mg/dL) 206 H 143 H 202 H (70-110) mg/dL Albumin (3.5-5.0) g/dL 12/21/23 12/21/23 12/21/23 Range/Units 06:22 06:22 11:25 RBC 3.56 L (3.80-5.40) m/uL Hgb 9.9 L (11.4-16.0) gm/dL Hct 31.8 L (34.0-46.0) % RDW 17.8 H (11.5-15.5) % Lymphocytes # 0.8 L (1.0-4.8) k/uL Potassium 3.3 L (3.5-5.1) mmol/L BUN 35 H (7-17) mg/dL Creatinine 1.54 H (0.52-1.04) mg/dL Glucose 160 H (74-99) mg/dL POC Glucose (mg/dL) 158 H (70-110) mg/dL Albumin 3.1 L (3.5-5.0) g/dL Microbiology - Last 24 Hours (Table) 12/19/23 09:22 Urine Culture - Preliminary Urine,Catheterized Gram Neg Bacilli
[2023-12-21 16:56] LABS: Glucose,Whole Blood 183 mg/dL (70-110)
[2023-12-21 20:13] LABS: Glucose,Whole Blood 205 mg/dL (70-110)
[2023-12-22 06:19] LABS: Glucose,Whole Blood 137 mg/dL (70-110)
--- NOTE | 2023-12-22 08:44 | P.PN ---
Subjective Progress Note Date: 12/22/23 HISTORY OF PRESENT ILLNESS This is an 88-year-old female patient of [facility], with past medical history of PE and DVT, morbid obesity, diabetes mellitus type 2, hypertension, hyperlipidemia, history of spinal stenosis status post surgery in [place], history of small bowel obstruction secondary to incarcerated umbilical hernia status post repair of the hernia with resolution of the bowel obstruction, history of atrial fibrillation, history of chronic diastolic heart failure with significant for hypertension and significant venous hypertension both lower extremities and significant edema, patient patient has been almost in a sedentary lifestyle noncompliant with her diet sitting in her wheelchair most of the day, has been on chronic diuretic use , patient was recently discharged from [facility] after she was admitted for acute on chronic systolic heart failure and she was seen by Cardiology and pulmonary and her Echocardiogram showed reduced EF 40-45% with severe Aortic stenosis and mild MR and Aortic aneurysm 4.1 cm, she was discharge 12/06/2021 and she was seen by me yesrterday at [facility] where she was short of breath withy increased weight gain she was discharged on Bumex 1 mg po daily that was increased to bid without any help , so she was sent out to [facility] for acute on chronic systolic heart failure. 12/12: Patient has been seen by cardiology and maintained on same medications. Left upper extremity duplex was negative for DVT. Patient continues to have lower extremity edema more than her baseline and bilateral crackles. Patient is also followed by pulmonary medicine. Blood pressure 101/61, heart rate in the 60s to 80s, pulse ox 91% on 2 L nasal cannula, afebrile. Repeat blood work reveals WBC 7.4, hemoglobin 9.1, platelet count 92. Electrolytes are normal, BUN 30 creatinine 1.5. Blood sugar 119. Capillary blood sugar is 313161. Patient's appetite seems to be improving. She states she worked with physical therapy by sitting on the edge of the bed for 15 minutes today. 12/13: Patient continues to have fluid overload and lower extremity edema but breathing seems to be improving. She has been on IV Lasix 40 mg every 12 hours. Repeat renal function is BUN 35 creatinine 1.39, potassium 4.9. Blood pressure 105/73, heart rate in the 70s. Patient is currently on 3 L oxygen nasal cannula. Cardiology and pulmonary medicine are following. 12/14: Patient does not appear to have significant improvement. Blood pressure was low this morning with systolic in the 70s. Yesterday we had increased her IV Lasix to 80 mg twice daily. Patient is urinating in her brief and accurate CALEB's are not available. Guajardo catheter will be placed. We will decrease IV Lasix to 40 mg twice daily, cardiology has discontinued Aldactone. Heart rate has been in the 80s, pulse ox 98% on 2 L nasal cannula. Repeat BUN 36 and creatinine 1.44. Hemoglobin is 9.5. 12/15: Case was discussed with Dr. Ceballos this morning and plan is to start patient on Lasix drip and amiodarone, discontinue beta-shawn. Patient will be transferred to the cardiac stepdown unit. Patient complains of not having a bowel movement since Tuesday and to collect suppository and enema been ordered as needed. Patient remains afebrile, heart rate in the 80s and 90s, blood pressure 102/61, pulse ox 96 to 99% on 3 L nasal cannula. Repeat blood work reveals sodium 139, potassium 4.8, BUN 34 and creatinine 1.6. Blood glucose running between 146 and 178. 12/16: Patient sitting up in bed she continues to be somewhat short of breath, she denies any chest pain, but she continues to have some dry cough, she is not spitting up any phlegm, she was started on amiodarone 400 mg twice a day, she is currently on Lasix drip at 5 mg an hour, urine output is marginal, she is continuing to have edema in both lower extremities we will continue to monitor the patient very closely, monitor electrolytes, magnesium and phosphorus. 12/17: Patient sitting up in bed she is feeling better today, she is less short of breath, she had an episode of epistaxis yesterday due to dryness because of her oxygen, she continues to be on Lasix drip at 5 mg/h, urine output is good kidney function test is stable, monitor BMP magnesium, physical therapy evaluation, continues to have swelling in both lower extremities, currently on amiodarone, echocardiogram showed ejection fraction of 40%. 12/18: Patient is feeling better today, she continues to be on Lasix drip at 5 mg an hour, we will continue to monitor the patient very closely, continue to monitor input and output and daily weight, continue with Angel Luis wrap to both lower extremities, physical therapy and Occupational Therapy evaluation, likely will be staying in the hospital for another 24 hours. 12/19: Patient is lying down in bed continues to have issues with dry cough currently on Lasix drip at 7.5 mg/h , she continues to diurese well, we will continue with monitoring her electrolytes carefully and measures her ins and out and daily weight. 12/20: Patient is doing better today, no new issues still with some dry cough,continues to have lasix drip and she is making good urine output, she is less short of breath, she continues to have edema in both legs better though, she has a good bowel movement today, we will continue with current treatment plan 12/21: Patient is feeling down she has no energy to do anyting still on Lasix drip at 7.5 mg/h, we will continue with that , she is depressed and she does not know if she wants to continues with this treatment, I will reach out to her daughter and we will make final decision about her care 12/22: Patient sitting up in bed in no apparent distress, she does complain of increased drainage in the back of her throat, she did have 1 episode of vomiting due to her significant drainage, will start the patient on loratadine 10 mg orally once every day as well as Flonase nasal spray 1 puff in each nostril twice every day, we will try to wean the patient off her Lasix drip, start her on IV Lasix 80 mg IV push every 8 hours, as to switch her to oral Lasix tomorrow morning and hopefully she will be able to go back to [facility] tomorrow morning REVIEW OF SYSTEMS Constitutional: Reports no fever or chills, no night sweats. positive for weight change. Reports weakness, Reports fatigue, no lethargy, no daytime sleepiness. HEENT: No headache. No blurred vision or double vision, no loss of vision. No dizziness. No nasal drainage or congestion. No epistaxis. No sore throat, hard of hearing Lungs: positive for shortness of breath, positive for dry cough, no sputum production. positive for wheezing. Cardiovascular: No chest pain, positive for lower extremity edema, positive for palpitations, no paroxysmal nocturnal dyspnea. No orthopnea. No lightheadedness or dizziness. No syncopal episodes. Abdominal: No abdominal pain. positive for nausea, no vomiting. No diarrhea. No constipation. No bloody or tarry stools. Reports loss of appetite. Genitourinary: No dysuria, increased frequency, urgency. No urinary retention, positive for urinary incontinence Musculoskeletal: No myalgias. Reports muscle weakness, Reports gait dysfunction, Reports falls. positive for back pain. No neck pain. Integumentary: Reports wound to the left big toe with significant tissue edema, reports lower extremity redness, there is denuded ulcer to the left big toe Neurologic: No aphasia. No facial droop. No change in mentation. No head injury. No headache. No paralysis. No paresthesia. Psychiatric: positive for depression. No anxiety. No mood swings. Endocrine: positive for mildly abnormal blood sugars. positive for weight change. PHYSICAL EXAMINATION Gen: This is an 88-year-old female, sitting up in bed in no acute respiratory distress. HEENT: Head is atraumatic, normocephalic. Pupils equal, round. Sclerae is anicteric, mucous membranes of the mouth are somewhat dry, there is minimal thrush. NECK: Supple. No JVD. No lymphadenopathy. No thyromegaly. LUNGS: Decreased breath sounds at the bases, few rhonchi, minimal expiratory wheezes, no chest wall tenderness, no intercostal retractions. HEART: first heart sound is depressed, second heart sound is normal, irregularly irregular, there is systolic ejection murmur 2/6 located at the left sternal border. ABDOMEN: morbidly obese abdomen, soft nontender nondistended, positive bowel sounds. EXTREMITIES: 2+ bilateral pitting edema to the lower extremities, chronic stasis dermatitis, there is bilateral foot drop. NEUROLOGICAL: Patient is awake, alert and oriented x3. Cranial nerves 2 through 12 are grossly intact significant weakness to both lower extremity his right more than left, bilateral foot drop ASSESSMENT AND PLAN 1. Acute on chronic systolic heart failure. , continue Lasix drip at 5mg/h continue amiodarone 400 mg orally twice every day.. Echocardiogram was done last week showed LVF 40 % with moderate , we will continue with Farxiga 10 mg po da martinez, continue to monitor electrolytes and renal function, we will wean off Lasix drip tonight and started on Lasix 80 mg IV push every 8 hours, continue Zaroxolyn 5 mg orally once every day, monitor the patient input and output and daily weight, monitor the patient electrolytes including magnesium level. 2. Left lower lobe pneumonia. Resolved 3. Chronic atrial fibrillation. we will continue with Aniodarone 400 mg po bid and Eliquis 2.5 mg po bid 4. Anemia of chronic diseases. Stable at this time. 5. History of multiple DVTs and PE on chcf anticoagulation. Continue eliquis 2.5 mg twice daily. Patient recently underwent Malik filter on November 2019 prior to laminectomy surgery. 6. Valvular heart disease with severe tricuspid regurgitation, mild-mod regurgitation moderate aortic stenosis. Case reviewed by Dr. Ceballos and he has reviewed echocardiogram, patient is actually a moderate aortic stenosis and does not qualify for TAVR procedure. 7. Severe pulmonary hypertension with RVSP 60 mmHg. we will continue with Furosemide drip 7.5 mg /h 8. Hypertension and hypertensive cardiovascular disease.we will continue to monitor her BP was marginal 9. Hyperlipidemia. Continue atorvastatin 10 mg at bedtime. 10. Diabetes mellitus type 2. Continue patient on Farxiga 10 mg po daily, along with SSI 11. Spinal stenosis status post laminectomy, with bilateral foot drop 12. Recurrent depression.Effexor 37.5 mg po daily 13. Gastroesophageal reflux disease and GI prophylaxis. Protonix 40 mg po daily. 14. Thrombocytopenia. Monitor platelets. 15. DVT prophylaxis. Eliquis 2.5 mg orally twice every day. 16. Medical debility. Physical therapy evaluation. 17. No code. 18. Poor prognosis. 19. postnasal drip due to allergic rhinitis and dry air. Start the patient on loratadine 10 mg once every day as well as Flonase nasal spray 1 puff in each nostril twice every day. 20. Increase activity. 21. Hopefully back to [facility] in 1-2 days. 22. I spoke with the daughter yesterday and updated her about her current condition. 23. Pseudomonas aeruginosa UTI discontinue doxycycline and start the patient on Azactam 1 g IV piggyback every 8 hours due to the patient allergies. Objective - Vital Signs Vital signs: Vital Signs Temp 97.1 F L 12/22/23 07:42 Pulse 71 12/22/23 07:42 Resp 20 12/22/23 07:42 BP 108/57 12/22/23 07:42 Pulse Ox 97 12/22/23 07:42 FiO2 Intake & Output 01/31/24 02/01/24 02/01/24 18:59 06:59 18:59 Intake Total 1240 10 Output Total 2500 2750 700 Balance -1260 -2740 -700 Weight 138 kg Intake: IV 10 0.9 10 Intake, IV Titration 100 Amount Furosemide 100 mg In 100 Sodium Chloride 0.9% 90 ml @ 7.5 MG/HR 7.5 mls/hr IV .[id number] [facility] Rx#: [id number] Oral 1140 Output: Urine 2500 2750 700 Other: Voiding Method Indwelling Catheter Indwelling Catheter - Labs CBC & Chem 7: 12/21/23 06:22 12/21/23 06:22 Labs: Abnormal Lab Results - Last 24 Hours (Table) 12/21/23 12/21/23 12/21/23 Range/Units 11:25 16:52 20:10 POC Glucose (mg/dL) 158 H 183 H 205 H (70-110) mg/dL 12/22/23 Range/Units 06:16 POC Glucose (mg/dL) 137 H (70-110) mg/dL Microbiology - Last 24 Hours (Table) 12/19/23 09:22 Urine Culture - Final Urine,Catheterized Pseudomonas aeruginosa
[2023-12-22 08:50] LABS: Anisocytosis Slight; Basophils % (A) 1 %; Eosinophils # (A) 0.2 k/uL (0-0.7); Eosinophils % (A) 4 %; HCT 31.3 % (34.0-46.0); HGB 9.4 gm/dL (11.4-16.0); Hypochromasia Marked; Lymphocytes # (A) 0.9 k/uL (1.0-4.8); Lymphocytes % (A) 14 %; MCH 26.8 pg (25.0-35.0); MCV 89.1 fL (80.0-100.0); Mean Platelet Volume 10.3; Monocytes # (A) 0.5 k/uL (0-1.0); Monocytes % (A) 8 %; Neutrophils # (A) 4.6 k/uL (1.3-7.7); Neutrophils % (A) 71 %; Platelet Count 171 k/uL (150-450); Poikilocytosis Slight; RBC 3.51 m/uL (3.80-5.40); RDW 17.5 % (11.5-15.5); WBC 6.5 k/uL (3.8-10.6)
[2023-12-22 09:14] LABS: ALT 12 U/L (4-34); AST 30 U/L (14-36); African American GFR (CKD) 38 (>60 ml/min/1.73 sqM); Albumin 3.1 g/dL (3.5-5.0); Alkaline Phosphatase 95 U/L (38-126); Anion Gap 6 mmol/L; Blood Urea Nitrogen 38 mg/dL (7-17); Calcium 8.6 mg/dL (8.4-10.2); Carbon Dioxide 32 mmol/L (22-30); Chloride 99 mmol/L (98-107); Glucose 132 mg/dL (74-99); Non-African American GFR(CKD) 33 (>60 ml/min/1.73 sqM); Potassium 3.3 mmol/L (3.5-5.1); Sodium 137 mmol/L (137-145); Total Bilirubin 0.9 mg/dL (0.2-1.3); Total Protein 6.7 g/dL (6.3-8.2)
[2023-12-22 11:42] LABS: Glucose,Whole Blood 148 mg/dL (70-110)
[2023-12-22] MEDS: POTASSIUM CHLORIDE ER 20 MEQ TAB.ER PO STA (12:02)
[2023-12-22] MEDS: LORATADINE 10 MG TAB PO SCH (12:02)
[2023-12-22] MEDS: AZTREONAM 1 GM in SODIUM CHLORIDE 0.9% 50 ML IVPB SCH (12:02)
[2023-12-22] MEDS: FLUTICASONE 50MCG/SPRAY NASAL 16GM EA NOSTRIL SCH (12:02)
--- NOTE | 2023-12-22 12:23 | XR ---
EXAMINATION TYPE: XR chest 1V DATE OF EXAM: 12/22/2023 10:35 AM CLINICAL INDICATION:Female, 88 years old with history of cough; [facility] COMPARISON: Chest radiographs from 12/18/2023. TECHNIQUE: XR chest 1V Frontal view of the chest. FINDINGS: Lungs/Pleura: No evidence of focal consolidation or pneumothorax. Blunting of the costophrenic left c ostophrenic angle angles is present. Pulmonary vascularity: Pulmonary vascular congestion. Heart/mediastinum: Cardiomediastinal silhouette is enlarged and stable. Atherosclerotic calcificatio ns are seen in the aorta. Musculoskeletal: No acute osseous pathology. Left shoulder arthroplasty changes appear intact. Severe right shoulder degeneration. IMPRESSION: Cardiomegaly, pulmonary vascular congestion and left pleural effusion. Correlate with BNP for congest sheri heart failure.
--- NOTE | 2023-12-22 13:09 | P.PN ---
Subjective Progress Note Date: 12/22/23 Principal diagnosis: CHF. This 88-year-old female patient is being readmitted to the hospital due to concerns of some respiratory distress. While at the custodial, the patient was being moved around and she felt slightly more short of breath and for that reason she was brought into the hospital for further investigation. She has a long list of medical problems and comorbidities. She is known to me from previous admissions. She denies having any chest pain. No altered mentation. She has chronic edema lower extremities bilaterally and the patient has been taking diuretics on outpatient basis. Her mobility is limited. No altered mentation. I reviewed the chest x-ray of the chest that shows, thyromegaly and mild pulmonary vascular congestion. She has been morbidly obese with a body mass index of 51.6. She has previous history of DVT and pulmonary embolism. She has diabetes mellitus type 2, hypertension hyperlipidemia and spinal stenosis along with chronic A. fib and diastolic heart failure and chronic venous stasis edema lower extremities bilaterally. She was taking Bumex on outpatient basis 1 mg daily basis. No fever. No altered mentation. The echoes at 6.7 with a hemoglobin of 9.9. BUN is at 30 with creatinine 1.38 and her renal function stable since her discharge from the hospital. Sodium level is at 138. The patient is seen today 12/12/2023 and follow-up on the regular medical floor. She is currently resting comfortably in bed. Awake and alert in no acute distress. She is maintaining O2 saturation in the 90s on 2 L/m per nasal cannula. She's been afebrile. Hemodynamically stable. She did have some left upper extremity edema. Doppler was negative for DVT. White count 7.4. Hemoglobin 9.1. Platelets 92,000. Sodium 140. Potassium 5.0. Bicarb 22. BUN 81. Creatinine 1.5. Glucose 119. She is continued on bronchodilators. Anticoagulated without this. Remains on IV diuretics. No accurate I&O. The patient is seen today December 13, 2023 and follow-up on the regular medical floor. She is currently resting flat in bed. Awake and alert in no acute distress. She is maintaining O2 saturation in the 90s on 3 L/min per nasal cannula. She continues with lower extremity edema and changes of chronic venous stasis. She remains on DuoNeb ventilations, Pulmicort inhalations. Remains on IV Lasix along with Aldactone. Anticoagulated with Xarelto. No accurate I&O. Sodium 137. Potassium 4.9. Bicarb 21. BUN 35. Creatinine 1.39. Glucose 111. The patient is seen today December 14, 2023 and follow-up on the regular medical floor. She is currently sitting up in bed. Awake and alert in no acute distres s. Denies any worsening shortness of breath, cough or congestion. She is maintaining O2 saturations in the 90s on 2 L/min per nasal cannula. She has been afebrile. Hemodynamically stable. X-ray continues to show cardiomegaly with mild pulmonary vascular congestion. No focal consolidation. No pneumothorax. No pleural effusion. Sodium 138. Potassium 4.5. Bicarb 23. BUN 36. Creatinine 1.44. Glucose 119. She remains on IV diuretics. Anticoagulated with Eliquis. Continued on bronchodilators. The patient is seen today December 15, 2023 in follow-up on the regular medical floor. She is resting comfortably in bed. Awake and alert in no acute distress. Maintaining O2 saturations in the 90s on 3 L/min per nasal cannula. Ssodium 139. Potassium 4.8. Bicarb 20. BUN 35. Creatinine 1.6. Glucose 132. She is continued on bronchodilators. Anticoagulated with Eliquis. She has b een initiated on a Lasix drip at 2.5 mg/h. She is awaiting transfer to selective care unit for amiodarone infusion. The patient is seen today December 16, 2023 and follow-up on the selective care unit. She was transferred here from the regular medical floor due to atrial fibrillation with rapid ventricular response. Her rate is better controlled today. She is maintaining good O2 saturations in the 90s on 3 L/min per nasal cannula. She remains on a Lasix drip at 2.5 mg/h. Currently in a negative balance. Guajardo catheter in place. Glucose 144. She has been transitioned to oral amiodarone. She is anticoagulated with Eliquis. She continues on bronchodilators. The patient is seen today December 17, 2023 in follow-up on the selective care unit. She is currently sitting up in bed. She is awake and alert in no acute distress. She denies any worsening shortness of breath, cough or congestion. No chest pain. He is maintaining good O2 saturations in the 90s on 3 L/min per nasal cannula. She is afebrile. Hemodynamically stable. White count 6.0. Hemoglobin 8.7. Sodium 138. Potassium 4.1. Bicarb 24. BUN 32. Creatinine 1.42. Glucose 197. She is on oral amiodarone. Anticoagulated with Eliquis. Continued on bronchodilators. Continued on a Lasix drip at 2.5 mg/h. Currently in a negative balance. Patient was reevaluated today on 12/18/2023, remains on Lasix drip at 5 mg an hour, patient is on3 L nasal cannula with O2 sats of 92% denies any shortness of breath denies any chest pain, her creatinine is stable at 1.44, and she put out almost 1900 cc over the last 24 hours. Follow-up chest x-ray did show evidence of improvement nonetheless continues to have a small left pleural effusion yesterday The patient is seen today December 19, 2023 and follow-up on the selective care unit. She is currently resting comfortably in bed. Awake and alert in no acute distress. She is maintaining O2 saturations in the 90s on 2 L/min per nasal cannula. She does have home oxygen at the same. She is currently on a Lasix drip at 7.5 mg/h. Remains on bronchodilators. Sodium 139. Potassium 4.0. Bicarb 23. BUN 34. Creatinine 1.33. Glucose 169. Urinalysis with high white count and bacteria. Currently on Vibramycin. Anticoagulated with Eliquis. On amiodarone 400 mg twice daily. Progress note dated December 20, 2023. This is an 88-year-old female who is seen in room 383. The patient was admitted with respiratory distress and hypoxemia, secondary to CHF. The patient currently is on 2 L of oxygen by nasal cannula. She is receiving a Lasix drip at 7.5 mg an hour. She is not receiving any additional IV fluids. Laboratory data today includes a glucose of 175. There is no recent chest x-ray. Progress note dated December 21, 2023. 88-year-old female seen in room 383. Currently, the patient is on 2 L by nasal cannula. She continues on a Lasix drip at 7.5 mg an hour. She still has significant lower extremity edema. The patient is not having any signs or symptoms of overt respiratory failure. Laboratory data from today includes a white count of 7, hemoglobin 9.9, hematocrit 31.8, platelet count 222,000. Sodium 139, potassium 3.3, chlorides 103, CO2 27, BUN 35, creatinine 1.54. Glucose is 158. Albumin is 3.1. Urine sampling from December 19, was positive for gram-negative bacilli. The patient is currently not on the antibiotic, except for doxycycline, which may not cover the gram-negative bacilli in the urine. Some consideration should be given to starting the patient on ceftriaxone. We will leave that up to the primary service. Progress note dated December 22 2023. 88-year-old female again seen in room 383. The patient continues on oxygen at 2 L. She is getting her Lasix drip, at 7.5 mg an hour. Her overall situation is essentially unchanged. Her respiratory status is stable. She has significant diffuse lower extremity edema, with chronic venous stasis changes, and skin changes. Current labs include a white count of 6.5, hemoglobin 9.4, hematocrit 31.3, and a platelet count of 171,000. Sodium 137, potassium 3.3, chloride 99, CO2 32, BUN 38, and creatinine 1.45. Glucose was 148. Albumin is 3.1. Urine was positive for Pseudomonas aeruginosa. She is currently on Azactam. Objective - Vital Signs Vital signs: Vital Signs Temp 97.7 F 12/22/23 11:00 Pulse 71 12/22/23 11:00 Resp 16 12/22/23 11:00 BP 103/66 12/22/23 11:00 Pulse Ox 97 12/22/23 11:00 FiO2 Intake & Output 12/21/23 12/22/23 12/22/23 18:59 06:59 18:59 Intake Total 1240 10 120 Output Total 2500 2750 1200 Balance -1260 -1990 -1080 Weight 138 kg Intake: IV 10 0.9 10 Intake, IV Titration 100 Amount Furosemide 100 mg In 100 Sodium Chloride 0.9% 90 ml @ 7.5 MG/HR 7.5 mls/hr IV .[id number] Rx#: [id number] Oral 1140 120 Output: Urine 2500 2750 1200 Other: Voiding Method Indwelling Catheter Indwelling Catheter Indwelling Catheter - Exam No acute distress, oriented 3. Currently on 2 L of oxygen. HEENT examination is grossly unremarkable. Mucous membranes are moist. No oral lesions. Neck supple. Full range of motion. No adenopathy thyromegaly or neck vein distention. Cardiovascular examination reveals regular rhythm rate. S1-S2 normal. No S3 or S4. No discernible murmur noted. Heart sounds are distant. Heart rate 71 bpm. Lungs reveal minimal scattered rhonchi. No crackles or wheezes. Breath sounds equal. 2 L saturation is 97%. Abdomen soft bowel sounds are heard. No masses or tenderness. Extremities are intact. Significant lower extremity edema, with chronic venous stasis. No cyanosis or clubbing. Skin is without rash or lesion. Neurologic examination is brief but nonfocal. - Labs CBC & Chem 7: 12/22/23 08:12/22/23 08:29 Labs: Abnormal Lab Results - Last 24 Hours (Table) 12/21/23 12/21/23 12/22/23 Range/Units 16:52 20:10 06:16 RBC (3.80-5.40) m/uL Hgb (11.4-16.0) gm/dL Hct (34.0-46.0) % MCHC (31.0-37.0) g/dL RDW (11.5-15.5) % Lymphocytes # (1.0-4.8) k/uL Potassium (3.5-5.1) mmol/L Carbon Dioxide (22-30) mmol/L BUN (7-17) mg/dL Creatinine (0.52-1.04) mg/dL Glucose (74-99) mg/dL POC Glucose (mg/dL) 183 H 205 H 137 H (70-110) mg/dL Albumin (3.5-5.0) g/dL 12/22/23 12/22/23 12/22/23 Range/Units 08:29 08:29 11:40 RBC 3.51 L (3.80-5.40) m/uL Hgb 9.4 L (11.4-16.0) gm/dL Hct 31.3 L (34.0-46.0) % MCHC 30.0 L (31.0-37.0) g/dL RDW 17.5 H (11.5-15.5) % Lymphocytes # 0.9 L (1.0-4.8) k/uL Potassium 3.3 L (3.5-5.1) mmol/L Carbon Dioxide 32 H (22-30) mmol/L BUN 38 H (7-17) mg/dL Creatinine 1.45 H (0.52-1.04) mg/dL Glucose 132 H (74-99) mg/dL POC Glucose (mg/dL) 148 H (70-110) mg/dL Albumin 3.1 L (3.5-5.0) g/dL Microbiology - Last 24 Hours (Table) 12/19/23 09:22 Urine Culture - Final Urine,Catheterized Pseudomonas aeruginosa Assessment and Plan Assessment: Acute exacerbation of chronic systolic heart failure with an ejection fraction of 40 to 45%, severe pulmonary hypertension, moderate to severe degree of aortic stenosis. Chronic hypoxic respiratory failure, currently on 3 L of oxygen by nasal cannula, likely in the base of CHF. Chronic lower extremity edema with signs of chronic fluid overload. Chronic dyspnea. Possible urinary tract infection secondary to gram-negative bacilli. Moderate degree of aortic stenosis. Diabetes mellitus type 2. Chronic kidney disease, stage III. Recent infection with COVID-19 infection. History of osteomyelitis of the left toe. Previous history of DVT and pulmonary embolism. Paroxysmal atrial fibrillation with a controlled rate. Hyperlipidemia. Hypertension. Obesity. Spinal stenosis. Poor overall functional performance. 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 Plan: Plan dated December 20, 2023. The patient is seen today in room 383. She is currently on 2 L of oxygen. The patient is getting a Lasix drip at 7.5 mg an hour. We will continue to follow. Labs, x-rays, medications are reviewed. The patient's overall prognosis remains guarded. She still has quite a bit of lower extremity edema. She is a DO NOT RESUSCITATE patient. Prognosis is guarded. Plan dated December 21, 2023. The patient appears to be stable from the pulmonary standpoint. She is on 2 L. She continues to diurese nicely on the Lasix drip at 7.5 mg an hour. There is a gram-negative bacilli in the urine. Some consideration should be given to broadening her antibiotic coverage, with the Rocephin. Currently, the patient is currently only on Vibramycin. We will continue to follow the patient, make recommendations along the way. Labs, x-rays, and medications are reviewed. Prognosis is guarded. Plan dated December 22, 2023. The patient is urine was positive for Pseudomonas aeruginosa. She was on Vibramycin, but is now on Azactam. She continues on 2 L of oxygen. No respiratory issues. The patient is also receiving a Lasix drip at 7.5 mg an hour. Labs, x-rays, and medications are reviewed. The patient's overall prognosis remains guarded. Will continue to follow the patient, make recommendations along the way. Time with Patient: Less than 30
[2023-12-22 16:41] LABS: Glucose,Whole Blood 191 mg/dL (70-110)
--- NOTE | 2023-12-22 17:24 | P.PN ---
Subjective HISTORY OF PRESENT ILLNESS: 88-year-old female was recently admitted to the hospital because of congestive heart failure and respiratory distress. She was managed with IV antibiotics and was discharged home on Bumex 3 days ago. In shelter patient started having increased cough and increased shortness of breath due to which she was sent to the hospital again. Patient has chronic lower extremity edema. Morbidly obese, BMI 51, previous h istory of DVT and pulmonary embolism. Type 2 diabetes, hypertension, hyperlipidemia chronic atrial fibrillation and diastolic heart failure. BUN 31, creatinine 1.3, hemoglobin 9.9 12/12 Patient seen today in follow-up. She continues to have decreased breath sounds/crackles and lower extremity edema. She is currently on Lasix 40 mg IV every 12 hours and was started on spironolactone 12.5 mg daily yesterday. Blood pressure 101/61, heart rate in the 80s, pulse ox 96% on 2 L. Left upper extremity venous Doppler duplex was negative for DVT. 12/13 Patient continues to have lower extremity edema and venous stasis changes. Her breathing is slowly improving. She has been on IV Lasix 40 mg every 12 hours increased to 80 mg every 12 hours by attending. Repeat blood work reveals BUN 35, creatinine 1.39, potassium 4.9. Blood sugar 105/73, heart rate is in the 70s. Patient is currently on O2 at 3 L nasal cannula. 12/14 Patient is a low blood pressure reading this morning of 79/53 and repeat is at 92/60. Heart rate is in the 70s and 80s. Attending has decreased IV Lasix to 40 mg every 12 hours. Patient appears to have a documented weight loss of 7 kg but urine output has been minimal but patient is urinating in brief. Guajardo catheter has been ordered. Requested evaluation for TAVR procedure but patient does not meet criteria as severe aortic stenosis is necessary to meet criteria. Chest x-ray performed this morning is pending. Lab work for today is pending. Most recent echocardiogram performed on 12/01/2023 revealed moderate LV systolic dysfunction. Moderate to severe aortic stenosis with peak gradient of 48 and mean gradient of 34 meeting criteria for moderate as reviewed by Dr. Ceballos. 12/15 Dr. Ceballos discussed case with Dr. Liu and recommended discontinuing the beta- shawn and IV Lasix and starting the patient on amiodarone bolus and drip as well as Lasix drip at a low dose. Patient's blood pressure has been marginal and no significant improvement with IV Lasix. Recommend blood pressure checks in both arms. Repeat blood work reveals potassium 4.8, BUN 34 creatinine 1.6. Patient has been afebrile, blood pressure 102/71, heart rate in the 80s. Yeste rday, Aldactone was discontinued and follow-up was decreased to 25 mg twice daily due to consistently low blood pressure readings. December 16, 2023 Patient examined this morning at the bedside. Patient continues to report mild shortness of breath. She denies chest pain or pressure. Telemetry reveals atrial fibrillation with heart in the 80s. She remains on IV Amio. She also remains on a Lasix drip at 2.5 mg an hour. Blood pressure is currently stable. December 17, 2023 Patient examined this morning at the bedside. Patient denies chest pain or pressure. She reports improvement in her shortness of breath. She remains on a Lasix drip at 5 mg an hour. Creatinine today 1.42. Blood pressure is stable. December 18, 2023 Patient examined this morning at the bedside. Patient denies chest pain or pressure. She currently denies shortness of breath. She remains on Lasix drip at 5 mg an hour. Creatinine remained stable today at 1.44. Blood pressure 109/71. Urine output over the last 24 hours is 1900 cc. 12/19 Patient remains on Lasix drip at 7.5 mg/h. She continues to have lower extremity edema and fluid overload. Blood pressure is stable at 109/70, heart rate is in the 60s to 90s. Repeat blood work reveals BUN 34 creatinine 1.33, potassium 4. Patient is in a negative fluid balance. Patient weights appear to be down 9 kg since admission on 12/11. 12/20 Patient has been maintained on Lasix drip at 7.5 mg/h and continues to have lower extremity edema and fluid overload. Blood pressure is 124/70, heart rate in the 60s to 80s, pulse ox 95% on 2 L nasal cannula. No repeat blood work for today. Patient worked with physical therapy today. 12/21 Patient has been maintained on Lasix drip at 7.5 mg/h. Blood pressure is 120/68, heart rate is in the 80s. Pulse ox 96% on 2 L. Repeat blood work reveals hemoglobin of 9.9, potassium 3.3 and has been replaced, BUN 35 creatinine 1.54. Yesterday patient was started on metolazone 5 mg daily. Patient is in a negative fluid balance. Lower extremity edema is improving. MARSHALL wraps in place bilat. 12/22 Patient seen and examined. Denies any chest pain or pressure. Has been diuresing well on Lasix drip with creatinine stable 1.4 and minus approximately 4 L output over last 24 hours. PHYSICAL EXAM: VITAL SIGNS: Reviewed. GENERAL: Well-developed in no acute distress. NECK: Supple. No JVD or thyromegaly LUNGS: Respirations even and unlabored. Lungs diminished bilaterally HEART: Irregular rate and rhythm. S1 and S2 heard. Systolic murmur noted. EXTREMITIES: Normal range of motion. No clubbing or cyanosis. Peripheral pulses intact. 23+ bilateral lower extremity edema ASSESSMENT: Acute on chronic HFREF exacerbation . EF 40-45% moderate LVH Moderate aortic stenosis Chronic lower extremity edema Pulmonary hypertension Type II Diabetes CKD stage III Recent COVID-19 infection. Post viral cough History of DVT and pulmonary embolism on anticoagulation Chronic atrial fibrillation Hypertension Dyslipidemia Morbid obesity PLAN: Continue Lasix gtt 7.5 mg an hour Daily weights, accurate intake and output, and monitoring of kidney function Continue patient on metolazone 5 mg daily Continue MARSHALL wraps Continue to monitor blood pressure Further recommendations pending patient course Objective - Vital Signs Vital signs: Vital Signs Temp 97.8 F 12/22/23 17:09 Pulse 75 12/22/23 17:09 Resp 16 12/22/23 17:09 BP 110/62 12/22/23 17:09 Pulse Ox 96 12/22/23 17:09 FiO2 Intake & Output 12/21/23 12/22/23 12/22/23 18:59 06:59 18:59 Intake Total 1240 10 120 Output Total 2500 2750 2500 Balance -9408 -4883 -5670 Weight 138 kg Intake: IV 10 0.9 10 Intake, IV Titration 100 Amount Furosemide 100 mg In 100 Sodium Chloride 0.9% 90 ml @ 7.5 MG/HR 7.5 mls/hr IV .[id number] [facility] Rx#: [id number] Oral 1140 120 Output: Urine 2500 2750 2500 Other: Voiding Method Indwelling Catheter Indwelling Catheter Indwelling Catheter - Labs CBC & Chem 7: 12/22/23 08:29 12/22/23 08:29 Labs: Abnormal Lab Results - Last 24 Hours (Table) 12/21/23 12/22/23 12/22/23 Range/Units 20:10 06:16 08:29 RBC 3.51 L (3.80-5.40) m/uL Hgb 9.4 L (11.4-16.0) gm/dL Hct 31.3 L (34.0-46.0) % MCHC 30.0 L (31.0-37.0) g/dL RDW 17.5 H (11.5-15.5) % Lymphocytes # 0.9 L (1.0-4.8) k/uL Potassium (3.5-5.1) mmol/L Carbon Dioxide (22-30) mmol/L BUN (7-17) mg/dL Creatinine (0.52-1.04) mg/dL Glucose (74-99) mg/dL POC Glucose (mg/dL) 205 H 137 H (70-110) mg/dL Albumin (3.5-5.0) g/dL 12/22/23 12/22/23 12/22/23 Range/Units 08:29 11:40 16:39 RBC (3.80-5.40) m/uL Hgb (11.4-16.0) gm/dL Hct (34.0-46.0) % MCHC (31.0-37.0) g/dL RDW (11.5-15.5) % Lymphocytes # (1.0-4.8) k/uL Potassium 3.3 L (3.5-5.1) mmol/L Carbon Dioxide 32 H (22-30) mmol/L BUN 38 H (7-17) mg/dL Creatinine 1.45 H (0.52-1.04) mg/dL Glucose 132 H (74-99) mg/dL POC Glucose (mg/dL) 148 H 191 H (70-110) mg/dL Albumin 3.1 L (3.5-5.0) g/dL Microbiology - Last 24 Hours (Table) 12/19/23 09:22 Urine Culture - Final Urine,Catheterized Pseudomonas aeruginosa
[2023-12-22 20:07] LABS: Glucose,Whole Blood 225 mg/dL (70-110)
[2023-12-22] MEDS: diphenhydrAMINE 25 MG CAP PO PRN (20:39)
[2023-12-23 06:18] LABS: Glucose,Whole Blood 134 mg/dL (70-110)
[2023-12-23] MEDS: POTASSIUM CHLORIDE ER 20 MEQ TAB.ER PO SCH (08:32)
[2023-12-23 09:02] LABS: Anisocytosis Slight; Basophils % (A) 1 %; Eosinophils # (A) 0.3 k/uL (0-0.7); Eosinophils % (A) 5 %; HCT 29.9 % (34.0-46.0); HGB 9.4 gm/dL (11.4-16.0); Hypochromasia Marked; Lymphocytes # (A) 0.8 k/uL (1.0-4.8); Lymphocytes % (A) 14 %; MCH 27.1 pg (25.0-35.0); MCHC 31.3 g/dL (31.0-37.0); MCV 86.6 fL (80.0-100.0); Mean Platelet Volume 10.7; Monocytes # (A) 0.6 k/uL (0-1.0); Monocytes % (A) 9 %; Neutrophils # (A) 4.1 k/uL (1.3-7.7); Neutrophils % (A) 68 %; Poikilocytosis Slight; RBC 3.45 m/uL (3.80-5.40); RDW 17.4 % (11.5-15.5); WBC 5.9 k/uL (3.8-10.6)
--- NOTE | 2023-12-23 09:05 | P.PN ---
Subjective Progress Note Date: 12/23/23 HISTORY OF PRESENT ILLNESS This is an 88-year-old female patient of [facility], with past medical history of PE and DVT, morbid obesity, diabetes mellitus type 2, hypertension, hyperlipidemia, history of spinal stenosis status post surgery in [place], history of small bowel obstruction secondary to incarcerated umbilical hernia status post repair of the hernia with resolution of the bowel obstruction, history of atrial fibrillation, history of chronic diastolic heart failure with significant for hypertension and significant venous hypertension both lower extremities and significant edema, patient patient has been almost in a sedentary lifestyle noncompliant with her diet sitting in her wheelchair most of the day, has been on chronic diuretic use , patient was recently discharged from [facility] after she was admitted for acute on chronic systolic heart failure and she was seen by Cardiology and pulmonary and her Echocardiogram showed reduced EF 40-45% with severe Aortic stenosis and mild MR and Aortic aneurysm 4.1 cm, she was discharge 12/06/2021 and she was seen by me yesrterday at [facility] where she was short of breath withy increased weight gain she was discharged on Bumex 1 mg po daily that was increased to bid without any help , so she was sent out to [facility] for acute on chronic systolic heart failure. 12/12: Patient has been seen by cardiology and maintained on same medications. Left upper extremity duplex was negative for DVT. Patient continues to have lower extremity edema more than her baseline and bilateral crackles. Patient is also followed by pulmonary medicine. Blood pressure 101/61, heart rate in the 60s to 80s, pulse ox 91% on 2 L nasal cannula, afebrile. Repeat blood work reveals WBC 7.4, hemoglobin 9.1, platelet count 92. Electrolytes are normal, BUN 30 creatinine 1.5. Blood sugar 119. Capillary blood sugar is [id number]. Patient's appetite seems to be improving. She states she worked with physical therapy by sitting on the edge of the bed for 15 minutes today. 12/13: Patient continues to have fluid overload and lower extremity edema but breathing seems to be improving. She has been on IV Lasix 40 mg every 12 hours. Repeat renal function is BUN 35 creatinine 1.39, potassium 4.9. Blood pressure 105/73, heart rate in the 70s. Patient is currently on 3 L oxygen nasal cannula. Cardiology and pulmonary medicine are following. 12/14: Patient does not appear to have significant improvement. Blood pressure was low this morning with systolic in the 70s. Yesterday we had increased her IV Lasix to 80 mg twice daily. Patient is urinating in her brief and accurate CALEB's are not available. Guajardo catheter will be placed. We will decrease IV Lasix to 40 mg twice daily, cardiology has discontinued Aldactone. Heart rate has been in the 80s, pulse ox 98% on 2 L nasal cannula. Repeat BUN 36 and creatinine 1.44. Hemoglobin is 9.5. 12/15: Case was discussed with Dr. Ceballos this morning and plan is to start patient on Lasix drip and amiodarone, discontinue beta-shawn. Patient will be transferred to the cardiac stepdown unit. Patient complains of not having a bowel movement since Tuesday and to collect suppository and enema been ordered as needed. Patient remains afebrile, heart rate in the 80s and 90s, blood pressure 102/61, pulse ox 96 to 99% on 3 L nasal cannula. Repeat blood work reveals sodium 139, potassium 4.8, BUN 34 and creatinine 1.6. Blood glucose running between 146 and 178. 12/16: Patient sitting up in bed she continues to be somewhat short of breath, she denies any chest pain, but she continues to have some dry cough, she is not spitting up any phlegm, she was started on amiodarone 400 mg twice a day, she is currently on Lasix drip at 5 mg an hour, urine output is marginal, she is continuing to have edema in both lower extremities we will continue to monitor the patient very closely, monitor electrolytes, magnesium and phosphorus. 12/17: Patient sitting up in bed she is feeling better today, she is less short of breath, she had an episode of epistaxis yesterday due to dryness because of her oxygen, she continues to be on Lasix drip at 5 mg/h, urine output is good kidney function test is stable, monitor BMP magnesium, physical therapy evaluation, continues to have swelling in both lower extremities, currently on amiodarone, echocardiogram showed ejection fraction of 40%. 12/18: Patient is feeling better today, she continues to be on Lasix drip at 5 mg an hour, we will continue to monitor the patient very closely, continue to monitor input and output and daily weight, continue with Angel Luis wrap to both lower extremities, physical therapy and Occupational Therapy evaluation, likely will be staying in the hospital for another 24 hours. 12/19: Patient is lying down in bed continues to have issues with dry cough currently on Lasix drip at 7.5 mg/h , she continues to diurese well, we will continue with monitoring her electrolytes carefully and measures her ins and out and daily weight. 12/20: Patient is doing better today, no new issues still with some dry cough,continues to have lasix drip and she is making good urine output, she is less short of breath, she continues to have edema in both legs better though, she has a good bowel movement today, we will continue with current treatment plan 12/21: Patient is feeling down she has no energy to do anyting still on Lasix drip at 7.5 mg/h, we will continue with that , she is depressed and she does not know if she wants to continues with this treatment, I will reach out to her daughter and we will make final decision about her care 12/22: Patient sitting up in bed in no apparent distress, she does complain of increased drainage in the back of her throat, she did have 1 episode of vomiting due to her significant drainage, will start the patient on loratadine 10 mg orally once every day as well as Flonase nasal spray 1 puff in each nostril twice every day, we will try to wean the patient off her Lasix drip, start her on IV Lasix 80 mg IV push every 8 hours, as to switch her to oral Lasix tomorrow morning and hopefully she will be able to go back to [facility] tomorrow 12/23: Patient sitting up in bed she is feeling better, she continues to be on Lasix drip at 7.5 mg/h, she is tolerating her antibiotic Azactam 2 g IV piggyback every 8 hours due to Pseudomonas aeruginosa, continue to monitor input and output and daily weight, we will try to switch the patient to IV Lasix to day, we will continue with IV antibiotic, as the patient does not have any other options orally. REVIEW OF SYSTEMS Constitutional: Reports no fever or chills, no night sweats. positive for weight change. Reports weakness, Reports fatigue, no lethargy, no daytime sleepiness. HEENT: No headache. No blurred vision or double vision, no loss of vision. No dizziness. No nasal drainage or congestion. No epistaxis. No sore throat, hard of hearing Lungs: positive for shortness of breath, positive for dry cough, no sputum production. positive for wheezing. Cardiovascular: No chest pain, positive for lower extremity edema, positive for palpitations, no paroxysmal nocturnal dyspnea. No orthopnea. No lightheadedness or dizziness. No syncopal episodes. Abdominal: No abdominal pain. positive for nausea, no vomiting. No diarrhea. No constipation. No bloody or tarry stools. Reports loss of appetite. Genitourinary: No dysuria, increased frequency, urgency. No urinary retention, positive for urinary incontinence Musculoskeletal: No myalgias. Reports muscle weakness, Reports gait dysfunction, Reports falls. positive for back pain. No neck pain. Integumentary: Reports wound to the left big toe with significant tissue edema, reports lower extremity redness, there is denuded ulcer to the left big toe Neurologic: No aphasia. No facial droop. No change in mentation. No head injury. No headache. No paralysis. No paresthesia. Psychiatric: positive for depression. No anxiety. No mood swings. Endocrine: positive for mildly abnormal blood sugars. positive for weight change. PHYSICAL EXAMINATION Gen: This is an 88-year-old female, sitting up in bed in no acute respiratory distress. HEENT: Head is atraumatic, normocephalic. Pupils equal, round. Sclerae is anicteric, mucous membranes of the mouth are somewhat dry, there is minimal thrush. NECK: Supple. No JVD. No lymphadenopathy. No thyromegaly. LUNGS: Decreased breath sounds at the bases, few rhonchi, minimal expiratory wheezes, no chest wall tenderness, no intercostal retractions. HEART: first heart sound is depressed, second heart sound is normal, irregularly irregular, there is systolic ejection murmur 2/6 located at the left sternal border. ABDOMEN: morbidly obese abdomen, soft nontender nondistended, positive bowel sounds. EXTREMITIES: 2+ bilateral pitting edema to the lower extremities, chronic stasis dermatitis, there is bilateral foot drop. NEUROLOGICAL: Patient is awake, alert and oriented x3. Cranial nerves 2 through 12 are grossly intact significant weakness to both lower extremity his right more than left, bilateral foot drop ASSESSMENT AND PLAN 1. Acute on chronic systolic heart failure. , continue Lasix drip at 5mg/h continue amiodarone 400 mg orally twice every day.. Echocardiogram was done last week showed LVF 40 % with moderate , we will continue with Farxiga 10 mg po daily, continue to monitor electrolytes and renal function, we will wean off Lasix drip tonight and started on Lasix 80 mg IV push every 8 hours, continue Zaroxolyn 5 mg orally once every day, monitor the patient input and output and daily weight, monitor the patient electrolytes including magnesium level. 2. Left lower lobe pneumonia. Resolved 3. Chronic atrial fibrillation. we will continue with Amiodarone 400 mg po bid and Eliquis 2.5 mg po bid 4. Anemia of chronic diseases. Stable at this time. 5. History of multiple DVTs and PE on retirement anticoagulation. Continue eliquis 2.5 mg twice daily. Patient recently underwent [place] filter on November 2019 prior to laminectomy surgery. 6. Valvular heart disease with severe tricuspid regurgitation, mild-mod regurgitation moderate aortic stenosis. Case reviewed by Dr. Ceballos and he has reviewed echocardiogram, patient is actually a moderate aortic stenosis and does not qualify for TAVR procedure. 7. Severe pulmonary hypertension with RVSP 60 mmHg. we will continue with Furosemide drip 7.5 mg /h 8. Hypertension and hypertensive cardiovascular disease.we will continue to monitor her BP was marginal 9. Hyperlipidemia. Continue atorvastatin 10 mg at bedtime. 10. Diabetes mellitus type 2. Continue patient on Farxiga 10 mg po daily, along with SSI 11. Spinal stenosis status post laminectomy, with bilateral foot drop 12. Recurrent depression.Effexor 37.5 mg po daily 13. Gastroesophageal reflux disease and GI prophylaxis. Protonix 40 mg po daily. 14. Thrombocytopenia. Monitor platelets. 15. DVT prophylaxis. Eliquis 2.5 mg orally twice every day. 16. Medical debility. Physical therapy evaluation. 17. No code. 18. Poor prognosis. 19. postnasal drip due to allergic rhinitis and dry air. Start the patient on loratadine 10 mg once every day as well as Flonase nasal spray 1 puff in each nostril twice every day. 20. Increase activity. 21. Hopefully back to [facility] in 1-2 days. 22. I spoke with the daughter yesterday and updated her about her current condition. 23. Pseudomonas aeruginosa UTI on Azactam 1 g IV piggyback every 8 hours due to the patient allergies. Objective - Vital Signs Vital signs: Vital Signs Temp 97.7 F 12/23/23 07:19 Pulse 78 12/23/23 08:53 Resp 18 12/23/23 08:53 BP 113/71 12/23/23 08:38 Pulse Ox 98 12/23/23 07:19 FiO2 Intake & Output 12/22/23 12/23/23 12/23/23 18:59 06:59 18:59 Intake Total 340 Output Total 3000 2100 Balance -2660 -2099 Intake: Intake, IV Titration 100 Amount Furosemide 100 mg In 100 Sodium Chloride 0.9% 90 ml @ 7.5 MG/HR 7.5 mls/hr IV .[id number] ALINA Rx#: [id number] Oral 240 Output: Urine 3000 2100 Other: Voiding Method Indwelling Catheter Indwelling Catheter Indwelling Catheter - Labs CBC & Chem 7: 12/23/23 08:30 12/22/23 08:29 Labs: Abnormal Lab Results - Last 24 Hours (Table) 12/22/23 12/22/23 12/22/23 Range/Units 08:29 11:40 16:39 RBC (3.80-5.40) m/uL Hgb (11.4-16.0) gm/dL Hct (34.0-46.0) % RDW (11.5-15.5) % Lymphocytes # (1.0-4.8) k/uL Potassium 3.3 L (3.5-5.1) mmol/L Carbon Dioxide 32 H (22-30) mmol/L BUN 38 H (7-17) mg/dL Creatinine 1.45 H (0.52-1.04) mg/dL Glucose 132 H (74-99) mg/dL POC Glucose (mg/dL) 148 H 191 H (70-110) mg/dL Albumin 3.1 L (3.5-5.0) g/dL 12/22/23 12/23/23 12/23/23 Range/Units 20:05 06:17 08:30 RBC 3.45 L (3.80-5.40) m/uL Hgb 9.4 L (11.4-16.0) gm/dL Hct 29.9 L (34.0-46.0) % RDW 17.4 H (11.5-15.5) % Lymphocytes # 0.8 L (1.0-4.8) k/uL Potassium (3.5-5.1) mmol/L Carbon Dioxide (22-30) mmol/L BUN (7-17) mg/dL Creatinine (0.52-1.04) mg/dL Glucose (74-99) mg/dL POC Glucose (mg/dL) 225 H 134 H (70-110) mg/dL Albumin (3.5-5.0) g/dL
[2023-12-23 09:38] LABS: Platelet Count 150 k/uL (150-450)
[2023-12-23 09:42] LABS: ALT 12 U/L (4-34); AST 23 U/L (14-36); African American GFR (CKD) 40 (>60 ml/min/1.73 sqM); Albumin 3.3 g/dL (3.5-5.0); Alkaline Phosphatase 93 U/L (38-126); Anion Gap 8 mmol/L; Blood Urea Nitrogen 40 mg/dL (7-17); Calcium 9.2 mg/dL (8.4-10.2); Carbon Dioxide 30 mmol/L (22-30); Chloride 99 mmol/L (98-107); Glucose 130 mg/dL (74-99); Non-African American GFR(CKD) 34 (>60 ml/min/1.73 sqM); Potassium 3.3 mmol/L (3.5-5.1); Sodium 137 mmol/L (137-145); Total Bilirubin 0.8 mg/dL (0.2-1.3); Total Protein 6.9 g/dL (6.3-8.2)
[2023-12-23 11:50] LABS: Glucose,Whole Blood 152 mg/dL (70-110)
[2023-12-23] MEDS: POTASSIUM CHLORIDE ER 20 MEQ TAB.ER PO STA (12:18)
--- NOTE | 2023-12-23 12:29 | P.PN ---
Subjective Progress Note Date: 12/23/23 Principal diagnosis: CHF. This 88-year-old female patient is being readmitted to the hospital due to concerns of some respiratory distress. While at the retirement, the patient was being moved around and she felt slightly more short of breath and for that reason she was brought into the hospital for further investigation. She has a long list of medical problems and comorbidities. She is known to me from previous admissions. She denies having any chest pain. No altered mentation. She has chronic edema lower extremities bilaterally and the patient has been taking diuretics on outpatient basis. Her mobility is limited. No altered mentation. I reviewed the chest x-ray of the chest that shows, thyromegaly and mild pulmonary vascular congestion. She has been morbidly obese with a body mass index of 51.6. She has previous history of DVT and pulmonary embolism. She has diabetes mellitus type 2, hypertension hyperlipidemia and spinal stenosis along with chronic A. fib and diastolic heart failure and chronic venous stasis edema lower extremities bilaterally. She was taking Bumex on outpatient basis 1 mg daily basis. No fever. No altered mentation. The echoes at 6.7 with a hemoglobin of 9.9. BUN is at 30 with creatinine 1.38 and her renal function stable since her discharge from the hospital. Sodium level is at 138. The patient is seen today 12/12/2023 and follow-up on the regular medical floor. She is currently resting comfortably in bed. Awake and alert in no acute distress. She is maintaining O2 saturation in the 90s on 2 L/m per nasal cannula. She's been afebrile. Hemodynamically stable. She did have some left upper extremity edema. Doppler was negative for DVT. White count 7.4. Hemoglobin 9.1. Platelets 92,000. Sodium 140. Potassium 5.0. Bicarb 22. BUN 81. Creatinine 1.5. Glucose 119. She is continued on bronchodilators. Anticoagulated without this. Remains on IV diuretics. No accurate I&O. The patient is seen today December 13, 2023 and follow-up on the regular medical floor. She is currently resting flat in bed. Awake and alert in no acute distress. She is maintaining O2 saturation in the 90s on 3 L/min per nasal cannula. She continues with lower extremity edema and changes of chronic venous stasis. She remains on DuoNeb ventilations, Pulmicort inhalations. Remains on IV Lasix along with Aldactone. Anticoagulated with Xarelto. No accurate I&O. Sodium 137. Potassium 4.9. Bicarb 21. BUN 35. Creatinine 1.39. Glucose 111. The patient is seen today December 14, 2023 and follow-up on the regular medical floor. She is currently sitting up in bed. Awake and alert in no acute distres s. Denies any worsening shortness of breath, cough or congestion. She is maintaining O2 saturations in the 90s on 2 L/min per nasal cannula. She has been afebrile. Hemodynamically stable. X-ray continues to show cardiomegaly with mild pulmonary vascular congestion. No focal consolidation. No pneumothorax. No pleural effusion. Sodium 138. Potassium 4.5. Bicarb 23. BUN 36. Creatinine 1.44. Glucose 119. She remains on IV diuretics. Anticoagulated with Eliquis. Continued on bronchodilators. The patient is seen today December 15, 2023 in follow-up on the regular medical floor. She is resting comfortably in bed. Awake and alert in no acute distress. Maintaining O2 saturations in the 90s on 3 L/min per nasal cannula. Ssodium 139. Potassium 4.8. Bicarb 20. BUN 35. Creatinine 1.6. Glucose 132. She is continued on bronchodilators. Anticoagulated with Eliquis. She has b een initiated on a Lasix drip at 2.5 mg/h. She is awaiting transfer to selective care unit for amiodarone infusion. The patient is seen today December 16, 2023 and follow-up on the selective care unit. She was transferred here from the regular medical floor due to atrial fibrillation with rapid ventricular response. Her rate is better controlled today. She is maintaining good O2 saturations in the 90s on 3 L/min per nasal cannula. She remains on a Lasix drip at 2.5 mg/h. Currently in a negative balance. Guajardo catheter in place. Glucose 144. She has been transitioned to oral amiodarone. She is anticoagulated with Eliquis. She continues on bronchodilators. The patient is seen today December 17, 2023 in follow-up on the selective care unit. She is currently sitting up in bed. She is awake and alert in no acute distress. She denies any worsening shortness of breath, cough or congestion. No chest pain. He is maintaining good O2 saturations in the 90s on 3 L/min per nasal cannula. She is afebrile. Hemodynamically stable. White count 6.0. Hemoglobin 8.7. Sodium 138. Potassium 4.1. Bicarb 24. BUN 32. Creatinine 1.42. Glucose 197. She is on oral amiodarone. Anticoagulated with Eliquis. Continued on bronchodilators. Continued on a Lasix drip at 2.5 mg/h. Currently in a negative balance. Patient was reevaluated today on 12/18/2023, remains on Lasix drip at 5 mg an hour, patient is on3 L nasal cannula with O2 sats of 92% denies any shortness of breath denies any chest pain, her creatinine is stable at 1.44, and she put out almost 1900 cc over the last 24 hours. Follow-up chest x-ray did show evidence of improvement nonetheless continues to have a small left pleural effusion yesterday The patient is seen today December 19, 2023 and follow-up on the selective care unit. She is currently resting comfortably in bed. Awake and alert in no acute distress. She is maintaining O2 saturations in the 90s on 2 L/min per nasal cannula. She does have home oxygen at the same. She is currently on a Lasix drip at 7.5 mg/h. Remains on bronchodilators. Sodium 139. Potassium 4.0. Bicarb 23. BUN 34. Creatinine 1.33. Glucose 169. Urinalysis with high white count and bacteria. Currently on Vibramycin. Anticoagulated with Eliquis. On amiodarone 400 mg twice daily. Progress note dated December 20, 2023. This is an 88-year-old female who is seen in room 383. The patient was admitted with respiratory distress and hypoxemia, secondary to CHF. The patient currently is on 2 L of oxygen by nasal cannula. She is receiving a Lasix drip at 7.5 mg an hour. She is not receiving any additional IV fluids. Laboratory data today includes a glucose of 175. There is no recent chest x-ray. Progress note dated December 21, 2023. 88-year-old female seen in room 383. Currently, the patient is on 2 L by nasal cannula. She continues on a Lasix drip at 7.5 mg an hour. She still has significant lower extremity edema. The patient is not having any signs or symptoms of overt respiratory failure. Laboratory data from today includes a white count of 7, hemoglobin 9.9, hematocrit 31.8, platelet count 222,000. Sodium 139, potassium 3.3, chlorides 103, CO2 27, BUN 35, creatinine 1.54. Glucose is 158. Albumin is 3.1. Urine sampling from December 19, was positive for gram-negative bacilli. The patient is currently not on the antibiotic, except for doxycycline, which may not cover the gram-negative bacilli in the urine. Some consideration should be given to starting the patient on ceftriaxone. We will leave that up to the primary service. Progress note dated December 22 2023. 88-year-old female again seen in room 383. The patient continues on oxygen at 2 L. She is getting her Lasix drip, at 7.5 mg an hour. Her overall situation is essentially unchanged. Her respiratory status is stable. She has significant diffuse lower extremity edema, with chronic venous stasis changes, and skin changes. Current labs include a white count of 6.5, hemoglobin 9.4, hematocrit 31.3, and a platelet count of 171,000. Sodium 137, potassium 3.3, chloride 99, CO2 32, BUN 38, and creatinine 1.45. Glucose was 148. Albumin is 3.1. Urine was positive for Pseudomonas aeruginosa. She is currently on Azactam. Progress note dated December 23, 2023. 88-year-old female seen in room 383. Currently, the patient is on 2 L of oxygen. She continues on Lasix drip at 7.5 mg an hour. She appears to be doing relatively well. She is not receiving any additional IV fluids. She denies any shortness of breath, cough, wheezing, chest tightness, phlegm production, chest pain, or chest pressure. Labs today including white count 5.9, hemoglobin 9.4, hematocrit 29.9, platelet count 150,000. Sodium 137, potassium 3.3, chloride 99, CO2 30, BUN 40, creatinine 1.39. Albumin is 3.3. Glucose is 152. Urine specimen was positive for Pseudomonas aeruginosa. Chest x-ray shows cardiomegaly, pulmonary vascular congestion, and left-sided pleural effusion. The patient is currently on aztreonam. Objective - Vital Signs Vital signs: Vital Signs Temp 97.7 F 02/02/24 07:19 Pulse 80 12/23/23 11:54 Resp 18 12/23/23 08:53 BP 113/71 12/23/23 08:38 Pulse Ox 98 12/23/23 07:19 FiO2 Intake & Output 12/22/23 12/23/23 12/23/23 18:59 06:59 18:59 Intake Total 340 Output Total 3000 2100 1100 Balance -2659 Intake: Intake, IV Titration 100 Amount Furosemide 100 mg In 100 Sodium Chloride 0.9% 90 ml @ 7.5 MG/HR 7.5 mls/hr IV .[id number] [facility] Rx#: [id number] Oral 240 Output: Urine 3000 2100 1100 Other: Voiding Method Indwelling Catheter Indwelling Catheter Indwelling Catheter - Exam No acute distress, oriented 3. Currently on 2 L of oxygen. HEENT examination is grossly unremarkable. Mucous membranes are moist. No oral lesions. Neck supple. Full range of motion. No adenopathy thyromegaly or neck vein distention. Cardiovascular examination reveals regular rhythm rate. S1-S2 normal. No S3 or S4. No discernible murmur noted. Heart sounds are distant. Heart rate 80 bpm. Lungs reveal minimal scattered rhonchi. No crackles or wheezes. Breath sounds equal. 2 L saturation is 96 %. Abdomen soft bowel sounds are heard. No masses or tenderness. Extremities are intact. Significant lower extremity edema, with chronic venous stasis. No cyanosis or clubbing. Skin is without rash or lesion. Neurologic examination is brief but nonfocal. - Labs CBC & Chem 7: 12/23/23 08:30 12/23/23 08:30 Labs: Abnormal Lab Results - Last 24 Hours (Table) 12/22/23 12/22/23 12/23/23 Range/Units 16:39 20:05 06:17 RBC (3.80-5.40) m/uL Hgb (11.4-16.0) gm/dL Hct (34.0-46.0) % RDW (11.5-15.5) % Lymphocytes # (1.0-4.8) k/uL Potassium (3.5-5.1) mmol/L BUN (7-17) mg/dL Creatinine (0.52-1.04) mg/dL Glucose (74-99) mg/dL POC Glucose (mg/dL) 191 H 225 H 134 H (70-110) mg/dL Albumin (3.5-5.0) g/dL 12/23/23 12/23/23 12/23/23 Range/Units 08:30 08:30 11:45 RBC 3.45 L (3.80-5.40) m/uL Hgb 9.4 L (11.4-16.0) gm/dL Hct 29.9 L (34.0-46.0) % RDW 17.4 H (11.5-15.5) % Lymphocytes # 0.8 L (1.0-4.8) k/uL Potassium 3.3 L (3.5-5.1) mmol/L BUN 40 H (7-17) mg/dL Creatinine 1.39 H (0.52-1.04) mg/dL Glucose 130 H (74-99) mg/dL POC Glucose (mg/dL) 152 H (70-110) mg/dL Albumin 3.3 L (3.5-5.0) g/dL Assessment and Plan Assessment: Acute exacerbation of chronic systolic heart failure with an ejection fraction of 40 to 45%, severe pulmonary hypertension, moderate to severe degree of aortic stenosis. Chronic hypoxic respiratory failure, currently on 3 L of oxygen by nasal cannula, likely in the base of CHF. Chronic lower extremity edema with signs of chronic fluid overload. Chronic dyspnea. Pseudomonas aeruginosa urinary tract infection. Moderate degree of aortic stenosis. Diabetes mellitus type 2. Chronic kidney disease, stage III. Recent infection with COVID-19 infection. History of osteomyelitis of the left toe. Previous history of DVT and pulmonary embolism. Paroxysmal atrial fibrillation with a controlled rate. Hyperlipidemia. Hypertension. Obesity. Spinal stenosis. Poor overall functional performance. care home resident. Plan: Plan dated December 20, 2023. The patient is seen today in room 383. She is currently on 2 L of oxygen. The patient is getting a Lasix drip at 7.5 mg an hour. We will continue to follow. Labs, x-rays, medications are reviewed. The patient's overall prognosis remains guarded. She still has quite a bit of lower extremity edema. She is a DO NOT RESUSCITATE patient. Prognosis is guarded. Plan dated December 21, 2023. The patient appears to be stable from the pulmonary standpoint. She is on 2 L. She continues to diurese nicely on the Lasix drip at 7.5 mg an hour. There is a gram-negative bacilli in the urine. Some consideration should be given to broadening her antibiotic coverage, with the Rocephin. Currently, the patient is currently only on Vibramycin. We will continue to follow the patient, make recommendations along the way. Labs, x-rays, and medications are reviewed. Prognosis is guarded. Plan dated December 22, 2023. The patient is urine was positive for Pseudomonas aeruginosa. She was on Vibr amycin, but is now on Azactam. She continues on 2 L of oxygen. No respiratory issues. The patient is also receiving a Lasix drip at 7.5 mg an hour. Labs, x- rays, and medications are reviewed. The patient's overall prognosis remains guarded. Will continue to follow the patient, make recommendations along the way. Plan dated December 23, 2023. The patient appears to be doing relatively well. She is stable. Her respiratory status is stable. Her chest x-ray is reviewed. It shows changes of fluid overload. The patient is currently now on aztreonam, for her Pseudomonas aeruginosa urinary tract infection. Her lower extremity edema persists, but is likely a bit better. Labs, x-rays, and medications are reviewed. The patient's overall prognosis remains guarded. She is a DO NOT RESUSCITATE patient. We will continue to follow make recommendations along the way. Time with Patient: Less than 30
[2023-12-23 16:35] LABS: Glucose,Whole Blood 155 mg/dL (70-110)
--- NOTE | 2023-12-23 16:45 | P.PN ---
Subjective Progress Note Date: 12/23/23 HISTORY OF PRESENT ILLNESS: 88-year-old female was recently admitted to the hospital because of congestive heart failure and respiratory distress. She was managed with IV antibiotics and was discharged home on Bumex 3 days ago. In jail patient started having increased cough and increased shortness of breath due to which she was sent to the hospital again. Patient has chronic lower extremity edema. Morbidly obese, BMI 51, previous history of DVT and pulmonary embolism. Type 2 diabetes, hypertension, hyperlipidemia chronic atrial fibrillation and diastolic heart failure. BUN 31, creatinine 1.3, hemoglobin 9.9 12/12 Patient seen today in follow-up. She continues to have decreased breath sounds/crackles and lower extremity edema. She is currently on Lasix 40 mg IV every 12 hours and was started on spironolactone 12.5 mg daily yesterday. Blood pressure 101/61, heart rate in the 80s, pulse ox 96% on 2 L. Left upper extremity venous Doppler duplex was negative for DVT. 12/13 Patient continues to have lower extremity edema and venous stasis changes. Her breathing is slowly improving. She has been on IV Lasix 40 mg every 12 hours increased to 80 mg every 12 hours by attending. Repeat blood work reveals BUN 35, creatinine 1.39, potassium 4.9. Blood sugar 105/73, heart rate is in the 70s. Patient is currently on O2 at 3 L nasal cannula. 12/14 Patient is a low blood pressure reading this morning of 79/53 and repeat is at 92/60. Heart rate is in the 70s and 80s. Attending has decreased IV Lasix to 40 mg every 12 hours. Patient appears to have a documented weight loss of 7 kg but urine output has been minimal but patient is urinating in brief. Guajardo catheter has been ordered. Requested evaluation for TAVR procedure but patient does not meet criteria as severe aortic stenosis is necessary to meet criteria. Chest x-ray performed this morning is pending. Lab work for today is pending. Most recent echocardiogram performed on 12/01/2023 revealed moderate LV systolic dysfunction. Moderate to severe aortic stenosis with peak gradient of 48 and mean gradient of 34 meeting criteria for moderate as reviewed by Dr. Ceballos. 12/15 Dr. Ceballos discussed case with Dr. Liu and recommended discontinuing the beta- shawn and IV Lasix and starting the patient on amiodarone bolus and drip as well as Lasix drip at a low dose. Patient's blood pressure has been marginal and no significant improvement with IV Lasix. Recommend blood pressure checks in both arms. Repeat blood work reveals potassium 4.8, BUN 34 creatinine 1.6. Patient has been afebrile, blood pressure 102/71, heart rate in the 80s. Yesterday, Aldactone was discontinued and follow-up was decreased to 25 mg twice daily due to consistently low blood pressure readings. December 16, 2023 Patient examined this morning at the bedside. Patient continues to report mild shortness of breath. She denies chest pain or pressure. Telemetry reveals atrial fibrillation with heart in the 80s. She remains on IV Amio. She also remains on a Lasix drip at 2.5 mg an hour. Blood pressure is currently stable. December 17, 2023 Patient examined this morning at the bedside. Patient denies chest pain or pressure. She reports improvement in her shortness of breath. She remains on a Lasix drip at 5 mg an hour. Creatinine today 1.42. Blood pressure is stable. December 18, 2023 Patient examined this morning at the bedside. Patient denies chest pain or pressure. She currently denies shortness of breath. She remains on Lasix drip at 5 mg an hour. Creatinine remained stable today at 1.44. Blood pressure 109/71. Urine output over the last 24 hours is 1900 cc. 12/19 Patient remains on Lasix drip at 7.5 mg/h. She continues to have lower extremity edema and fluid overload. Blood pressure is stable at 109/70, heart rate is in the 60s to 90s. Repeat blood work reveals BUN 34 creatinine 1.33, potassium 4. Patient is in a negative fluid balance. Patient weights appear to be down 9 kg since admission on 12/11. 12/20 Patient has been maintained on Lasix drip at 7.5 mg/h and continues to have lower extremity edema and fluid overload. Blood pressure is 124/70, heart rate in the 60s to 80s, pulse ox 95% on 2 L nasal cannula. No repeat blood work for today. Patient worked with physical therapy today. 12/21 Patient has been maintained on Lasix drip at 7.5 mg/h. Blood pressure is 120/68, heart rate is in the 80s. Pulse ox 96% on 2 L. Repeat blood work reveals hemoglobin of 9.9, potassium 3.3 and has been replaced, BUN 35 creatinine 1.54. Yesterday patient was started on metolazone 5 mg daily. Patient is in a negative fluid balance. Lower extremity edema is improving. MARSHALL wraps in place bilat. 12/23 Patient remains on Lasix drip at 7.5 mg/h. She may have minimal improvement of lower extremity edema. Family are at bedside including her daughter Bree and her . They have chosen to pursue comfort care measures and hospice referral has been placed. Blood pressure is 111/60, heart rate in the 60s to 80s. Repeat blood work reveals potassium 3.3, BUN 40, creatinine 1.39, hemoglobin 9.4. PHYSICAL EXAM: VITAL SIGNS: Reviewed. GENERAL: Well-developed in no acute distress. NECK: Supple. No JVD or thyromegaly LUNGS: Respirations even and unlabored. Lungs diminished bilaterally HEART: Irregular rate and rhythm. S1 and S2 heard. Systolic murmur noted. EXTREMITIES: Normal range of motion. No clubbing or cyanosis. Peripheral pulses intact. 23+ bilateral lower extremity edema ASSESSMENT: Acute on chronic HFREF exacerbation . EF 40-45% moderate LVH Moderate aortic stenosis Chronic lower extremity edema Pulmonary hypertension Type II Diabetes CKD stage III Recent COVID-19 infection. Post viral cough History of DVT and pulmonary embolism on anticoagulation Chronic atrial fibrillation Hypertension Dyslipidemia Morbid obesity PLAN: Continue Lasix gtt 7.5 mg an hour until patient transitions to hospice care then change Lasix to oral Daily weights, accurate intake and output, and monitoring of kidney function Continue patient on metolazone 5 mg daily Continue MARSHALL wraps Continue to monitor blood pressure Further recommendations pending patient course Nurse practitioner note has been reviewed by physician. Signing provider agrees with the documented findings, assessment, and plan of care documented by [employer] as a scribe. Objective - Vital Signs Vital signs: Vital Signs Temp 97.4 F L 12/23/23 11:57 Pulse 62 12/23/23 11:57 Resp 16 12/23/23 11:57 BP 111/60 12/23/23 11:57 Pulse Ox 98 12/23/23 11:57 FiO2 Intake & Output 12/22/23 12/23/23 12/23/23 18:59 06:59 18:59 Intake Total 340 Output Total 3000 2100 1100 Balance -2660 -2100 -1100 Intake: Intake, IV Titration 100 Amount Furosemide 100 mg In 100 Sodium Chloride 0.9% 90 ml @ 7.5 MG/HR 7.5 mls/hr IV .[id number] [facility] Rx#: [id number] Oral 240 Output: Urine 3000 2099 1099 Other: Voiding Method Indwelling Catheter Indwelling Catheter Indwelling Catheter - Labs CBC & Chem 7: 12/23/23 08:30 12/23/23 08:30 Labs: Abnormal Lab Results - Last 24 Hours (Table) 12/22/23 12/22/23 12/23/23 Range/Units 16:39 20:05 06:17 RBC (3.80-5.40) m/uL Hgb (11.4-16.0) gm/dL Hct (34.0-46.0) % RDW (11.5-15.5) % Lymphocytes # (1.0-4.8) k/uL Potassium (3.5-5.1) mmol/L BUN (7-17) mg/dL Creatinine (0.52-1.04) mg/dL Glucose (74-99) mg/dL POC Glucose (mg/dL) 191 H 225 H 134 H (70-110) mg/dL Albumin (3.5-5.0) g/dL 12/23/23 12/23/23 12/23/23 Range/Units 08:30 08:30 11:45 RBC 3.45 L (3.80-5.40) m/uL Hgb 9.4 L (11.4-16.0) gm/dL Hct 29.9 L (34.0-46.0) % RDW 17.4 H (11.5-15.5) % Lymphocytes # 0.8 L (1.0-4.8) k/uL Potassium 3.3 L (3.5-5.1) mmol/L BUN 40 H (7-17) mg/dL Creatinine 1.39 H (0.52-1.04) mg/dL Glucose 130 H (74-99) mg/dL POC Glucose (mg/dL) 152 H (70-110) mg/dL Albumin 3.3 L (3.5-5.0) g/dL
[2023-12-23 20:11] LABS: Glucose,Whole Blood 228 mg/dL (70-110)
[2023-12-24 06:05] LABS: Glucose,Whole Blood 140 mg/dL (70-110)
--- NOTE | 2023-12-24 10:23 | P.PN ---
Subjective Progress Note Date: 12/24/23 Principal diagnosis: CHF. This 88-year-old female patient is being readmitted to the hospital due to concerns of some respiratory distress. [facility] at the [facility], the patient was being moved around and she felt slightly more short of breath and for that reason she was brought into the hospital for further investigation. She has a long list of medical problems and comorbidities. She is known to me from previous admissions. She denies having any chest pain. No altered mentation. She has chronic edema lower extremities bilaterally and the patient has been taking diuretics on outpatient basis. Her mobility is limited. No altered mentation. I reviewed the chest x-ray of the chest that shows, thyromegaly and mild pulmonary vascular congestion. She has been morbidly obese with a body mass index of 51.6. She has previous history of DVT and pulmonary embolism. She has diabetes mellitus type 2, hypertension hyperlipidemia and spinal stenosis along with chronic A. fib and diastolic heart failure and chronic venous stasis edema lower extremities bilaterally. She was taking Bumex on outpatient basis 1 mg daily basis. No fever. No altered mentation. The echoes at 6.7 with a hemoglobin of 9.9. BUN is at 30 with creatinine 1.38 and her renal function stable since her discharge from the hospital. Sodium level is at 138. The patient is seen today 12/12/2023 and follow-up on the regular medical floor. She is currently resting comfortably in bed. Awake and alert in no acute distress. She is maintaining O2 saturation in the 90s on 2 L/m per nasal cannula. She's been afebrile. Hemodynamically stable. She did have some left upper extremity edema. Doppler was negative for DVT. White count 7.4. Hemoglobin 9.1. Platelets 92,000. Sodium 140. Potassium 5.0. Bicarb 22. BUN 81. Creatinine 1.5. Glucose 119. She is continued on bronchodilators. Anticoagulated without this. Remains on IV diuretics. No accurate I&O. The patient is seen today December 13, 2023 and follow-up on the regular medical floor. She is currently resting flat in bed. Awake and alert in no acute distress. She is maintaining O2 saturation in the 90s on 3 L/min per nasal cannula. She continues with lower extremity edema and changes of chronic venous stasis. She remains on DuoNeb ventilations, Pulmicort inhalations. Remains on IV Lasix along with Aldactone. Anticoagulated with Xarelto. No accurate I&O. Sodium 137. Potassium 4.9. Bicarb 21. BUN 35. Creatinine 1.39. Glucose 111. The patient is seen today December 14, 2023 and follow-up on the regular medical floor. She is currently sitting up in bed. Awake and alert in no acute distres s. Denies any worsening shortness of breath, cough or congestion. She is maintaining O2 saturations in the 90s on 2 L/min per nasal cannula. She has been afebrile. Hemodynamically stable. X-ray continues to show cardiomegaly with mild pulmonary vascular congestion. No focal consolidation. No pneumothorax. No pleural effusion. Sodium 138. Potassium 4.5. Bicarb 23. BUN 36. Creatinine 1.44. Glucose 119. She remains on IV diuretics. Anticoagulated with Eliquis. Continued on bronchodilators. The patient is seen today December 15, 2023 in follow-up on the regular medical floor. She is resting comfortably in bed. Awake and alert in no acute distress. Maintaining O2 saturations in the 90s on 3 L/min per nasal cannula. Ssodium 139. Potassium 4.8. Bicarb 20. BUN 35. Creatinine 1.6. Glucose 132. She is continued on bronchodilators. Anticoagulated with Eliquis. She has b een initiated on a Lasix drip at 2.5 mg/h. She is awaiting transfer to selective care unit for amiodarone infusion. The patient is seen today December 16, 2023 and follow-up on the selective care unit. She was transferred here from the regular medical floor due to atrial fibrillation with rapid ventricular response. Her rate is better controlled today. She is maintaining good O2 saturations in the 90s on 3 L/min per nasal cannula. She remains on a Lasix drip at 2.5 mg/h. Currently in a negative balance. Guajardo catheter in place. Glucose 144. She has been transitioned to oral amiodarone. She is anticoagulated with Eliquis. She continues on bronchodilators. The patient is seen today December 17, 2023 in follow-up on the selective care unit. She is currently sitting up in bed. She is awake and alert in no acute distress. She denies any worsening shortness of breath, cough or congestion. No chest pain. He is maintaining good O2 saturations in the 90s on 3 L/min per nasal cannula. She is afebrile. Hemodynamically stable. White count 6.0. Hemoglobin 8.7. Sodium 138. Potassium 4.1. Bicarb 24. BUN 32. Creatinine 1.42. Glucose 197. She is on oral amiodarone. Anticoagulated with Eliquis. Continued on bronchodilators. Continued on a Lasix drip at 2.5 mg/h. Currently in a negative balance. Patient was reevaluated today on 12/18/2023, remains on Lasix drip at 5 mg an hour, patient is on3 L nasal cannula with O2 sats of 92% denies any shortness of breath denies any chest pain, her creatinine is stable at 1.44, and she put out almost 1900 cc over the last 24 hours. Follow-up chest x-ray did show evidence of improvement nonetheless continues to have a small left pleural effusion yesterday The patient is seen today December 19, 2023 and follow-up on the selective care unit. She is currently resting comfortably in bed. Awake and alert in no acute distress. She is maintaining O2 saturations in the 90s on 2 L/min per nasal cannula. She does have home oxygen at the same. She is currently on a Lasix drip at 7.5 mg/h. Remains on bronchodilators. Sodium 139. Potassium 4.0. Bicarb 23. BUN 34. Creatinine 1.33. Glucose 169. Urinalysis with high white count and bacteria. Currently on Vibramycin. Anticoagulated with Eliquis. On amiodarone 400 mg twice daily. Progress note dated December 20, 2023. This is an 88-year-old female who is seen in room 383. The patient was admitted with respiratory distress and hypoxemia, secondary to CHF. The patient currently is on 2 L of oxygen by nasal cannula. She is receiving a Lasix drip at 7.5 mg an hour. She is not receiving any additional IV fluids. Laboratory data today includes a glucose of 175. There is no recent chest x-ray. Progress note dated December 21, 2023. 88-year-old female seen in room 383. Currently, the patient is on 2 L by nasal cannula. She continues on a Lasix drip at 7.5 mg an hour. She still has significant lower extremity edema. The patient is not having any signs or symptoms of overt respiratory failure. Laboratory data from today includes a white count of 7, hemoglobin 9.9, hematocrit 31.8, platelet count 222,000. Sodium 139, potassium 3.3, chlorides 103, CO2 27, BUN 35, creatinine 1.54. Glucose is 158. Albumin is 3.1. Urine sampling from December 19, was positive for gram-negative bacilli. The patient is currently not on the antibiotic, except for doxycycline, which may not cover the gram-negative bacilli in the urine. Some consideration should be given to starting the patient on ceftriaxone. We will leave that up to the primary service. Progress note dated December 22 2023. 88-year-old female again seen in room 383. The patient continues on oxygen at 2 L. She is getting her Lasix drip, at 7.5 mg an hour. Her overall situation is essentially unchanged. Her respiratory status is stable. She has significant diffuse lower extremity edema, with chronic venous stasis changes, and skin changes. Current labs include a white count of 6.5, hemoglobin 9.4, hematocrit 31.3, and a platelet count of 171,000. Sodium 137, potassium 3.3, chloride 99, CO2 32, BUN 38, and creatinine 1.45. Glucose was 148. Albumin is 3.1. Urine was positive for Pseudomonas aeruginosa. She is currently on Azactam. Progress note dated December 23, 2023. 88-year-old female seen in room 383. Currently, the patient is on 2 L of oxygen. She continues on Lasix drip at 7.5 mg an hour. She appears to be doing relatively well. She is not receiving any additional IV fluids. She denies any shortness of breath, cough, wheezing, chest tightness, phlegm production, chest pain, or chest pressure. Labs today including white count 5.9, hemoglobin 9.4, hematocrit 29.9, platelet count 150,000. Sodium 137, potassium 3.3, chloride 99, CO2 30, BUN 40, creatinine 1.39. Albumin is 3.3. Glucose is 152. Urine specimen was positive for Pseudomonas aeruginosa. Chest x-ray shows cardiomegaly, pulmonary vascular congestion, and left-sided pleural effusion. The patient is currently on aztreonam. Progress note dated December 24, 2023. 88-year-old female seen again in room 383. The patient continues on oxygen at 2 L. She got a Lasix drip running at 7.5 mg an hour. Apparently, hospital saw the patient yesterday, and the patient is planning on going hospice, either here in the hospital, or at home. The patient is fed up, with pills, IVs, and other medications. I had a long conversation with the patient today, and the patient's daughter. The patient would just like comfort measures at this point, including oxygen, and pain medications. No new labs today other than a glucose of 140. Objective - Vital Signs Vital signs: Vital Signs Temp 97.6 F 12/24/23 08:02 Pulse 69 12/24/23 08:02 Resp 16 12/24/23 08:02 BP 110/68 12/24/23 08:02 Pulse Ox 94 L 12/24/23 09:12 FiO2 Intake & Output 12/23/23 12/24/23 12/24/23 18:59 06:59 18:59 Intake Total 218 187 Output Total 2600 2049 Balance -2381 -2049 187 Weight 103.5 kg Intake: Intake, IV Titration 100 69 Amount Furosemide 100 mg In 100 69 Sodium Chloride 0.9% 90 ml @ 7.5 MG/HR 7.5 mls/hr IV .[id number] [facility] Rx#: [id number] Oral 118 118 Output: Urine 2600 2049 Other: Voiding Method Indwelling Catheter Indwelling Catheter Indwelling Catheter # Voids 2 - Exam No acute distress, oriented 3. Currently on 2 L of oxygen. HEENT examination is grossly unremarkable. Mucous membranes are moist. No oral lesions. Neck supple. Full range of motion. No adenopathy thyromegaly or neck vein distention. Cardiovascular examination reveals regular rhythm rate. S1-S2 normal. No S3 or S4. No discernible murmur noted. Heart sounds are distant. Heart rate 69 bpm. Lungs reveal minimal scattered rhonchi. No crackles or wheezes. Breath sounds equal. 2 L saturation is 94 %. Abdomen soft bowel sounds are heard. No masses or tenderness. Extremities are intact. Significant lower extremity edema, with chronic venous stasis. No cyanosis or clubbing. Skin is without rash or lesion. Neurologic examination is brief but nonfocal. - Labs CBC & Chem 7: 12/23/23 08:30 12/23/23 08:30 Labs: Abnormal Lab Results - Last 24 Hours (Table) 12/23/23 12/23/23 12/23/23 Range/Units 11:45 16:28 20:10 POC Glucose (mg/dL) 152 H 155 H 228 H (70-110) mg/dL 12/24/23 Range/Units 06:04 POC Glucose (mg/dL) 140 H (70-110) mg/dL Assessment and Plan Assessment: Acute exacerbation of chronic systolic heart failure with an ejection fraction of 40 to 45%, severe pulmonary hypertension, moderate to severe degree of aortic stenosis. Chronic hypoxic respiratory failure, currently on 2 L of oxygen by nasal cannula, likely in the base of CHF. Chronic lower extremity edema with signs of chronic fluid overload. Chronic dyspnea. Pseudomonas aeruginosa urinary tract infection. Moderate degree of aortic stenosis. Diabetes mellitus type 2. Chronic kidney disease, stage III. Recent infection with COVID-19 infection. History of osteomyelitis of the left toe. Previous history of DVT and pulmonary embolism. Paroxysmal atrial fibrillation with a controlled rate. Hyperlipidemia. Hypertension. Obesity. Spinal stenosis. Poor overall functional performance. 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 Plan: Plan dated December 20, 2023. The patient is seen today in room 383. She is currently on 2 L of oxygen. The patient is getting a Lasix drip at 7.5 mg an hour. We will continue to follow. Labs, x-rays, medications are reviewed. The patient's overall prognosis remains guarded. She still has quite a bit of lower extremity edema. She is a DO NOT RESUSCITATE patient. Prognosis is guarded. Plan dated December 21, 2023. The patient appears to be stable from the pulmonary standpoint. She is on 2 L. She continues to diurese nicely on the Lasix drip at 7.5 mg an hour. There is a gram-negative bacilli in the urine. Some consideration should be given to broadening her antibiotic coverage, with the Rocephin. Currently, the patient is currently only on Vibramycin. We will continue to follow the patient, make recommendations along the way. Labs, x-rays, and medications are reviewed. Prognosis is guarded. Plan dated December 22, 2023. The patient is urine was positive for Pseudomonas aeruginosa. She was on Vibramycin, but is now on Azactam. She continues on 2 L of oxygen. No respiratory issues. The patient is also receiving a Lasix drip at 7.5 mg an hour. Labs, x-rays, and medications are reviewed. The patient's overall prognosis remains guarded. Will continue to follow the patient, make recommendations along the way. Plan dated December 23, 2023. The patient appears to be doing relatively well. She is stable. Her respiratory status is stable. Her chest x-ray is reviewed. It shows changes of fluid overload. The patient is currently now on aztreonam, for her Pseudomonas aeruginosa urinary tract infection. Her lower extremity edema persists, but is likely a bit better. Labs, x-rays, and medications are reviewed. The patient's overall prognosis remains guarded. She is a DO NOT RESUSCITATE patient. We will continue to follow make recommendations along the way. Plan dated December 24, 2023. The patient is seen in room 383. I had a long conversation with the patient, and the patient's daughter. Apparently, hospice saw the patient yesterday, and the patient would like to proceed with hospice, either here in the hospital, or at home. She does not want to go to the hospice facility in [place]. The patient would prefer just comfort measures, pain control, and oxygen for her breathing. She does not want to take all these medications anymore, and does not want any additional IVs. I think that is reasonable, given the patient's age, and her health history. I had a conversation with the patient. The daughter wanted me to have that conversation with the patient. She was pleased with the way it turned out. Time with Patient: Less than 30
[2023-12-24] MEDS ORDERED: ALPRAZolam 0.25 MG TAB PO PRN (11:43)
--- NOTE | 2023-12-24 11:43 | P.PN ---
Subjective Progress Note Date: 12/24/23 HISTORY OF PRESENT ILLNESS: 88-year-old female was recently admitted to the hospital because of congestive heart failure and respiratory distress. She was managed with IV antibiotics and was discharged home on Bumex 3 days ago. In correction patient started having increased cough and increased shortness of breath due to which she was sent to the hospital again. Patient has chronic lower extremity edema. Morbidly obese, BMI 51, previous history of DVT and pulmonary embolism. Type 2 diabetes, hypertension, hyperlipidemia chronic atrial fibrillation and diastolic heart failure. BUN 31, creatinine 1.3, hemoglobin 9.9 12/12 Patient seen today in follow-up. She continues to have decreased breath sounds/crackles and lower extremity edema. She is currently on Lasix 40 mg IV every 12 hours and was started on spironolactone 12.5 mg daily yesterday. Blood pressure 101/61, heart rate in the 80s, pulse ox 96% on 2 L. Left upper extremity venous Doppler duplex was negative for DVT. 12/13 Patient continues to have lower extremity edema and venous stasis changes. Her breathing is slowly improving. She has been on IV Lasix 40 mg every 12 hours increased to 80 mg every 12 hours by attending. Repeat blood work reveals BUN 35, creatinine 1.39, potassium 4.9. Blood sugar 105/73, heart rate is in the 70s. Patient is currently on O2 at 3 L nasal cannula. 12/14 Patient is a low blood pressure reading this morning of 79/53 and repeat is at 92/60. Heart rate is in the 70s and 80s. Attending has decreased IV Lasix to 40 mg every 12 hours. Patient appears to have a documented weight loss of 7 kg but urine output has been minimal but patient is urinating in brief. Guajardo catheter has been ordered. Requested evaluation for TAVR procedure but patient does not meet criteria as severe aortic stenosis is necessary to meet criteria. Chest x-ray performed this morning is pending. Lab work for today is pending. Most recent echocardiogram performed on 12/01/2023 revealed moderate LV systolic dysfunction. Moderate to severe aortic stenosis with peak gradient of 48 and mean gradient of 34 meeting criteria for moderate as reviewed by Dr. Ceballos. 12/15 Dr. Ceballos discussed case with Dr. Liu and recommended discontinuing the beta- shawn and IV Lasix and starting the patient on amiodarone bolus and drip as well as Lasix drip at a low dose. Patient's blood pressure has been marginal and no significant improvement with IV Lasix. Recommend blood pressure checks in both arms. Repeat blood work reveals potassium 4.8, BUN 34 creatinine 1.6. Patient has been afebrile, blood pressure 102/71, heart rate in the 80s. Yesterday, Aldactone was discontinued and follow-up was decreased to 25 mg twice daily due to consistently low blood pressure readings. December 16, 2023 Patient examined this morning at the bedside. Patient continues to report mild shortness of breath. She denies chest pain or pressure. Telemetry reveals atrial fibrillation with heart in the 80s. She remains on IV Amio. She also remains on a Lasix drip at 2.5 mg an hour. Blood pressure is currently stable. December 17, 2023 Patient examined this morning at the bedside. Patient denies chest pain or pressure. She reports improvement in her shortness of breath. She remains on a Lasix drip at 5 mg an hour. Creatinine today 1.42. Blood pressure is stable. December 18, 2023 Patient examined this morning at the bedside. Patient denies chest pain or pressure. She currently denies shortness of breath. She remains on Lasix drip at 5 mg an hour. Creatinine remained stable today at 1.44. Blood pressure 109/71. Urine output over the last 24 hours is 1900 cc. 12/19 Patient remains on Lasix drip at 7.5 mg/h. She continues to have lower extremity edema and fluid overload. Blood pressure is stable at 109/70, heart rate is in the 60s to 90s. Repeat blood work reveals BUN 34 creatinine 1.33, potassium 4. Patient is in a negative fluid balance. Patient weights appear to be down 9 kg since admission on 12/11. 12/20 Patient has been maintained on Lasix drip at 7.5 mg/h and continues to have lower extremity edema and fluid overload. Blood pressure is 124/70, heart rate in the 60s to 80s, pulse ox 95% on 2 L nasal cannula. No repeat blood work for today. Patient worked with physical therapy today. 12/21 Patient has been maintained on Lasix drip at 7.5 mg/h. Blood pressure is 120/68, heart rate is in the 80s. Pulse ox 96% on 2 L. Repeat blood work reveals hemoglobin of 9.9, potassium 3.3 and has been replaced, BUN 35 creatinine 1.54. Yesterday patient was started on metolazone 5 mg daily. Patient is in a negative fluid balance. Lower extremity edema is improving. MARSHALL wraps in place bilat. 12/23 Patient remains on Lasix drip at 7.5 mg/h. She may have minimal improvement of lower extremity edema. Family are at bedside including her daughter Bree and her . They have chosen to pursue comfort care measures and hospice referral has been placed. Blood pressure is 111/60, heart rate in the 60s to 80s. Repeat blood work reveals potassium 3.3, BUN 40, creatinine 1.39, hemoglobin 9.4. 12/24 Patient and daughter are meeting with hospice at this time with plan to discharge home on Tuesday. Reviewed medication list in order to help family with minimizing medication administration. Will plan to transition Lasix drip to oral Bumex. Blood pressure 110/68, heart rate is in the 60s, pulse ox 96% on 2 L nasal cannula. PHYSICAL EXAM: VITAL SIGNS: Reviewed. GENERAL: Well-developed in no acute distress. NECK: Supple. No JVD or thyromegaly LUNGS: Respirations even and unlabored. Lungs diminished bilaterally HEART: Irregular rate and rhythm. S1 and S2 heard. Systolic murmur noted. EXTREMITIES: Normal range of motion. No clubbing or cyanosis. Peripheral pulses intact. 23+ bilateral lower extremity edema ASSESSMENT: Acute on chronic HFREF exacerbation . EF 40-45% moderate LVH Moderate aortic stenosis Chronic lower extremity edema Pulmonary hypertension Type II Diabetes CKD stage III Recent COVID-19 infection. Post viral cough History of DVT and pulmonary embolism on anticoagulation Chronic atrial fibrillation Hypertension Dyslipidemia Morbid obesity PLAN: Transition IV Lasix to Bumex oral Minimize medication regime Patient is transitioning to hospice care Cardiology will sign off this case and follow on an as-needed basis. Please reconsult for any new concerns. Nurse practitioner note has been reviewed by physician. Signing provider agrees with the documented findings, assessment, and plan of care documented by [employer] SUPER[employer] as a scribe. Objective - Vital Signs Vital signs: Vital Signs Temp 97.6 F 12/24/23 08:02 Pulse 69 12/24/23 08:02 Resp 16 12/24/23 08:02 BP 110/68 12/24/23 08:02 Pulse Ox 94 L 12/24/23 09:12 FiO2 Intake & Output 12/23/23 12/24/23 12/24/23 18:59 06:59 18:59 Intake Total 218 187 Output Total [id number] Balance -2381 187 Weight 103.5 kg Intake: Intake, IV Titration 100 69 Amount Furosemide 100 mg In 100 69 Sodium Chloride 0.9% 90 ml @ 7.5 MG/HR 7.5 mls/hr IV .[id number] [facility] Rx#: [id number] Oral 118 118 Output: Urine 2599 2049 Other: Voiding Method Indwelling Catheter Indwelling Catheter Indwelling Catheter # Voids 2 - Labs CBC & Chem 7: 12/23/23 08:30 12/23/23 08:30 Labs: Abnormal Lab Results - Last 24 Hours (Table) 12/23/23 12/23/23 12/23/23 Range/Units 11:45 16:28 20:10 POC Glucose (mg/dL) 152 H 155 H 228 H (70-110) mg/dL 12/24/23 Range/Units 06:04 POC Glucose (mg/dL) 140 H (70-110) mg/dL
--- NOTE | 2023-12-24 18:39 | P.PN ---
Subjective Progress Note Date: 12/24/23 88-year-old female patient is being readmitted to the hospital due to concerns of some respiratory distress. While at the [facility], the patient was being moved around and she felt slightly more short of breath and for that reason she was brought into the hospital for further investigation. She has a long list of medical problems and comorbidities. She is known to me from previous admissions. She denies having any chest pain. No altered mentation. She has chronic edema lower extremities bilaterally and the patient has been taking diuretics on outpatient basis. Her mobility is limited. No altered mentation. I reviewed the chest x-ray of the chest that shows, thyromegaly and mild pulmona ry vascular congestion. She has been morbidly obese with a body mass index of 51.6. She has previous history of DVT and pulmonary embolism. She has diabetes mellitus type 2, hypertension hyperlipidemia and spinal stenosis along with chronic A. fib and diastolic heart failure and chronic venous stasis edema lower extremities bilaterally. She was taking Bumex on outpatient basis 1 mg daily basis. No fever. No altered mentation. The echoes at 6.7 with a hemoglobin of 9.9. BUN is at 30 with creatinine 1.38 and her renal function stable since her discharge from the hospital. Sodium level is at 138. Patient and family have opted for hospice care; hospice was consulted; patient remains pain and symptom free -- Plan is to discharge patient with hospice on Tuesday Objective - Vital Signs Vital signs: Vital Signs Temp 97.6 F 12/24/23 08:02 Pulse 69 12/24/23 08:02 Resp 16 12/24/23 08:02 BP 110/68 12/24/23 08:02 Pulse Ox 94 L 12/24/23 09:12 FiO2 Intake & Output 12/23/23 12/24/23 12/24/23 18:59 06:59 18:59 Intake Total 218 187 Output Total 2599 2049 Balance -2381 187 Weight 103.5 kg Intake: Intake, IV Titration 100 69 Amount Furosemide 100 mg In 100 69 Sodium Chloride 0.9% 90 ml @ 7.5 MG/HR 7.5 mls/hr IV .[id number] ALINA Rx#: [id number] Oral 118 118 Output: Urine 2599 2049 Other: Voiding Method Indwelling Catheter Indwelling Catheter Indwelling Catheter # Voids 2 - Exam No acute distress, oriented 3. Currently on 2 L of oxygen. HEENT examination is grossly unremarkable. Mucous membranes are moist. No oral lesions. Neck supple. Full range of motion. No adenopathy thyromegaly or neck vein distention. Cardiovascular examination reveals regular rhythm rate. S1-S2 normal. No S3 or S4. No discernible murmur noted. Heart sounds are distant. Heart rate 69 bpm. Lungs reveal minimal scattered rhonchi. No crackles or wheezes. Breath sounds equal. 2 L saturation is 94 %. Abdomen soft bowel sounds are heard. No masses or tenderness. Extremities are intact. Significant lower extremity edema, with chronic venous stasis. No cyanosis or clubbing. Skin is without rash or lesion. Neurologic examination is brief but nonfocal. - Labs CBC & Chem 7: 12/23/23 08:30 12/23/23 08:30 Labs: Abnormal Lab Results - Last 24 Hours (Table) 12/23/23 12/23/23 12/23/23 Range/Units 11:45 16:28 20:10 POC Glucose (mg/dL) 152 H 155 H 228 H (70-110) mg/dL 12/24/23 Range/Units 06:04 POC Glucose (mg/dL) 140 H (70-110) mg/dL Assessment and Plan Assessment: Acute on chronic HFREF exacerbation . EF 40-45% moderate LVH Moderate aortic stenosis Chronic lower extremity edema Pulmonary hypertension Type II Diabetes CKD stage III Recent COVID-19 infection. Post viral cough History of DVT and pulmonary embolism on anticoagulation Chronic atrial fibrillation Hypertension Dyslipidemia Morbid obesity
[2023-12-24] MEDS: BUMETANIDE 1 MG TAB PO SCH (21:34)
--- NOTE | 2023-12-25 17:46 | P.PN ---
Subjective Progress Note Date: 12/25/23 88-year-old female patient is being readmitted to the hospital due to concerns of some respiratory distress. While at the [facility], the patient was being moved around and she felt slightly more short of breath and for that reason she was brought into the hospital for further investigation. She has a long list of medical problems and comorbidities. She is known to me from previous admissions. She denies having any chest pain. No altered mentation. She has chronic edema lower extremities bilaterally and the patient has been taking diuretics on outpatient basis. Her mobility is limited. No altered mentation. I reviewed the chest x-ray of the chest that shows, thyromegaly and mild pulmona ry vascular congestion. She has been morbidly obese with a body mass index of 51.6. She has previous history of DVT and pulmonary embolism. She has diabetes mellitus type 2, hypertension hyperlipidemia and spinal stenosis along with chronic A. fib and diastolic heart failure and chronic venous stasis edema lower extremities bilaterally. She was taking Bumex on outpatient basis 1 mg daily basis. No fever. No altered mentation. The echoes at 6.7 with a hemoglobin of 9.9. BUN is at 30 with creatinine 1.38 and her renal function stable since her discharge from the hospital. Sodium level is at 138. Patient and family have opted for hospice care; hospice was consulted; patient remains pain and symptom free -- Plan is to discharge patient with hospice on Tuesday12/25/2023 Patient is seen and evaluated with family members at bedside; patient and family have met with hospice --Remains comfortable and pain-free -- Patient is to be discharged home with hospice tomorrow Objective - Vital Signs Vital signs: Vital Signs Temp 97.4 F L 12/25/23 08:00 Pulse 70 12/25/23 08:00 Resp 18 12/25/23 08:00 BP 107/70 12/25/23 08:00 Pulse Ox 97 12/25/23 09:32 FiO2 Intake & Output 12/24/23 12/25/23 12/25/23 18:59 06:59 18:59 Intake Total 187 590 Output Total 1300 1430 255 Balance -1113 -3250 -900 Weight 111 kg Intake: Intake, IV Titration 69 Amount Furosemide 100 mg In 69 Sodium Chloride 0.9% 90 ml @ 7.5 MG/HR 7.5 mls/hr IV .[id number] ALINA Rx#: [id number] Oral 118 590 Output: Urine 1300 2000 900 Other: Voiding Method Indwelling Catheter Indwelling Catheter Indwelling Catheter # Bowel Movements 1 1 - Exam No acute distress, oriented 3. Currently on 2 L of oxygen. HEENT examination is grossly unremarkable. Mucous membranes are moist. No oral lesions. Neck supple. Full range of motion. No adenopathy thyromegaly or neck vein distention. Cardiovascular examination reveals regular rhythm rate. S1-S2 normal. No S3 or S4. No discernible murmur noted. Heart sounds are distant. Heart rate 69 bpm. Lungs reveal minimal scattered rhonchi. No crackles or wheezes. Breath sounds equal. 2 L saturation is 94 %. Abdomen soft bowel sounds are heard. No masses or tenderness. Extremities are intact. Significant lower extremity edema, with chronic venous stasis. No cyanosis or clubbing. Skin is without rash or lesion. Neurologic examination is brief but nonfocal. - Labs CBC & Chem 7: 12/23/23 08:30 12/23/23 08:30 Assessment and Plan Assessment: Acute on chronic HFREF exacerbation . EF 40-45% moderate LVH Moderate aortic stenosis Chronic lower extremity edema Pulmonary hypertension Type II Diabetes CKD stage III Recent COVID-19 infection. Post viral cough History of DVT and pulmonary embolism on anticoagulation Chronic atrial fibrillation Hypertension Dyslipidemia Morbid obesity
[2023-12-25 20:26] VITALS: RESP 18
[2023-12-26 08:19] VITALS: BP 105/65; PULSE 63; TEMP 97.7
--- NOTE | 2023-12-26 10:24 | P.DS ---
Providers Date of admission: 12/13/23 16:37 Expected date of discharge: 12/26/23 Attending physician: Kinjal Liu Consults: 12/11/23 08:16 Consult Physician Routine Consulting Provider: Paul Delacruz Consult Reason/Comments: CHF Do you want consulting provider notified?: Yes 12/11/23 08:17 Consult Physician Urgent Consulting Provider: Aicah Marti Consult Reason/Comments: Cough/SOB Do you want consulting provider notified?: Yes Primary care physician: Kinjal Liu Hospital Course: HISTORY OF PRESENT ILLNESS This is an 88-year-old female patient of [facility] with past medical history of PE and DVT, morbid obesity, diabetes mellitus type 2, hypertension, hyperlipidemia, history of spinal stenosis status post surgery in [place], history of small bowel obstruction secondary to incarcerated umbilical hernia status post repair of the hernia with resolution of the bowel obstruction, history of atrial fibrillation, history of chronic diastolic heart failure with significant for hypertension and significant venous hypertension both lower extremities and significant edema, patient patient has been almost in a sedentary lifestyle noncompliant with her diet sitting in her wheelchair most of the day, has been on chronic diuretic use , patient was recently discharged from [facility] after she was admitted for acute on chronic systolic heart failure and she was seen by Cardiology and pulmonary and her Echocardiogram showed reduced EF 40-45% with severe Aortic stenosis and mild MR and Aortic aneurysm 4.1 cm, she was discharge 12/06/2021 and she was seen by me yesrterday at [facility] where she was short of breath withy increased weight gain she was discharged on Bumex 1 mg po daily that was increased to bid without any help , so she was sent out to [facility] for acute on chronic systolic heart failure. 12/12: Patient has been seen by cardiology and maintained on same medications. Left upper extremity duplex was negative for DVT. Patient continues to have lower extremity edema more than her baseline and bilateral crackles. Patient is also followed by pulmonary medicine. Blood pressure 101/61, heart rate in the 60s to 80s, pulse ox 91% on 2 L nasal cannula, afebrile. Repeat blood work reveals WBC 7.4, hemoglobin 9.1, platelet count 92. Electrolytes are normal, BUN 30 creatinine 1.5. Blood sugar 119. Capillary blood sugar is [id number]. Patient's appetite seems to be improving. She states she worked with physical therapy by sitting on the edge of the bed for 15 minutes today. 12/13: Patient continues to have fluid overload and lower extremity edema but breathing seems to be improving. She has been on IV Lasix 40 mg every 12 hours. Repeat renal function is BUN 35 creatinine 1.39, potassium 4.9. Blood pressure 105/73, heart rate in the 70s. Patient is currently on 3 L oxygen nasal cannula. Cardiology and pulmonary medicine are following. 12/14: Patient does not appear to have significant improvement. Blood pressure was low this morning with systolic in the 70s. Yesterday we had increased her IV Lasix to 80 mg twice daily. Patient is urinating in her brief and accurate CALEB's are not available. Guajardo catheter will be placed. We will decrease IV Lasix to 40 mg twice daily, cardiology has discontinued Aldactone. Heart rate has been in the 80s, pulse ox 98% on 2 L nasal cannula. Repeat BUN 36 and creatinine 1.44. Hemoglobin is 9.5. 12/15: Case was discussed with Dr. Ceballos this morning and plan is to start patient on Lasix drip and amiodarone, discontinue beta-shawn. Patient will be transferred to the cardiac stepdown unit. Patient complains of not having a bowel movement since Tuesday and to collect suppository and enema been ordered as needed. Patient remains afebrile, heart rate in the 80s and 90s, blood pressure 102/61, pulse ox 96 to 99% on 3 L nasal cannula. Repeat blood work reveals sodium 139, potassium 4.8, BUN 34 and creatinine 1.6. Blood glucose running between 146 and 178. 12/16: Patient sitting up in bed she continues to be somewhat short of breath, she denies any chest pain, but she continues to have some dry cough, she is not spitting up any phlegm, she was started on amiodarone 400 mg twice a day, she is currently on Lasix drip at 5 mg an hour, urine output is marginal, she is continuing to have edema in both lower extremities we will continue to monitor the patient very closely, monitor electrolytes, magnesium and phosphorus. 12/17: Patient sitting up in bed she is feeling better today, she is less short of breath, she had an episode of epistaxis yesterday due to dryness because of her oxygen, she continues to be on Lasix drip at 5 mg/h, urine output is good kidney function test is stable, monitor BMP magnesium, physical therapy evalu ation, continues to have swelling in both lower extremities, currently on amiodarone, echocardiogram showed ejection fraction of 40%. 12/18: Patient is feeling better today, she continues to be on Lasix drip at 5 mg an hour, we will continue to monitor the patient very closely, continue to monitor input and output and daily weight, continue with Angel Luis wrap to both lower extremities, physical therapy and Occupational Therapy evaluation, likely will be staying in the hospital for another 24 hours. 12/19: Patient is lying down in bed continues to have issues with dry cough currently on Lasix drip at 7.5 mg/h , she continues to diurese well, we will continue with monitoring her electrolytes carefully and measures her ins and out and daily weight. 12/20: Patient is doing better today, no new issues still with some dry cough,continues to have lasix drip and she is making good urine output, she is less short of breath, she continues to have edema in both legs better though, she has a good bowel movement today, we will continue with current treatment plan 12/21: Patient is feeling down she has no energy to do anyting still on Lasix drip at 7.5 mg/h, we will continue with that , she is depressed and she does not know if she wants to continues with this treatment, I will reach out to her daughter and we will make final decision about her care 12/22: Patient sitting up in bed in no apparent distress, she does complain of increased drainage in the back of her throat, she did have 1 episode of vomiting due to her significant drainage, will start the patient on loratadine 10 mg orally once every day as well as Flonase nasal spray 1 puff in each nostril twice every day, we will try to wean the patient off her Lasix drip, start her on IV Lasix 80 mg IV push every 8 hours, as to switch her to oral Lasix tomorrow morning and hopefully she will be able to go back to [facility] tomorrow 12/23: Patient sitting up in bed she is feeling better, she continues to be on Lasix drip at 7.5 mg/h, she is tolerating her antibiotic Azactam 2 g IV piggyback every 8 hours due to Pseudomonas aeruginosa, continue to monitor input and output and daily weight, we will try to switch the patient to IV Lasix today, we will continue with IV antibiotic, as the patient does not have any other options orally. 12/26: Over the weekend, patient and family have decided to go with hospice care. Patient's plan is to return home to be with her family. [facility] hospice is in place. She was transitioned off Lasix drip to Bumex 3 mg twice daily as well as requested that IV antibiotics be discontinued. Patient requested all blood draws be canceled. Orders were placed according to patient's request. DME has been arranged for home and patient will be discharged home today in stable condition. DISCHARGE DIAGNOSES 1. Acute on chronic systolic heart failure. 2. Left lower lobe pneumonia. 3. Chronic atrial fibrillation. 4. Anemia of chronic diseases. 5. History of multiple DVTs and PE on long term care social worker anticoagulation. 6. Valvular heart disease with severe tricuspid regurgitation, mild-mod regurgitation moderate aortic stenosis. 7. Severe pulmonary hypertension with RVSP 60 mmHg. 8. Hypertension and hypertensive cardiovascular disease. 9. Hyperlipidemia. 10. Diabetes mellitus type 2. 11. Spinal stenosis status post laminectomy, with bilateral foot drop 12. Recurrent depression. 13. Gastroesophageal reflux disease. 14. Thrombocytopenia. 15. Postnasal drip due to allergic rhinitis and dry air. 16. Pseudomonas aeruginosa UTI Greater than 35 minutes was utilized and coordinating patient's discharge. Impression and plan of care have been directed as dictated by the signing physician. India Conway nurse practitioner acting as scribe for signing physician. Patient Condition at Discharge: Fair Plan - Discharge Summary New Discharge Prescriptions: New Bumetanide [BUMEX] 3 mg PO BID #180 tab Loratadine [Claritin] 10 mg PO DAILY tab Venlafaxine HCl [Effexor] 37.5 mg PO DAILY #30 tab metOLazone [Zaroxolyn] 5 mg PO DAILY #30 tab Continue Melatonin 3 mg PO HS Ondansetron [Zofran] 4 mg PO Q6H PRN PRN Reason: Nausea And Vomiting guaiFENesin [guaiFENesin Oral Solution] 200 mg PO Q4H PRN PRN Reason: Airway Patency Metoprolol Tartrate [Lopressor] 25 mg PO BID@0800,1600 diphenhydrAMINE [Benadryl] 25 mg PO TID PRN cap PRN Reason: Itching Ipratropium-Albuterol Nebulize [Duoneb 0.5 mg-3 mg/3 ml Soln] 3 ml INHALATION RT-QID each Triamcinolone 0.1% Cream [Kenalog 0.1% Cream] 1 applic TOPICAL BID each ALPRAZolam [Xanax] 0.25 mg PO BID PRN PRN Reason: Anxiety Acetaminophen [Tylenol] 650 mg PO Q4H PRN PRN Reason: Pain Sennosides/Docusate Sodium [Senna Plus 8.6-50 mg Tablet] 2 tab PO HS Lactulose [Cephulac] 20 gm PO BID ml Apixaban [Eliquis] 2.5 mg PO BID@0800,1600 tab Potassium Chloride ER [K-Dur 20] 20 meq PO DAILY #0 tab Discontinued Simvastatin [Zocor] 10 mg PO HS Metoclopramide HCl [Reglan] 5 mg PO AC-TID Cholecalciferol [Vitamin D3 (25 Mcg = 1000 Iu)] 25 mcg PO DAILY Budesonide [Pulmicort] 1 mg INHALATION RT-BID 14 Days ml Insulin Aspart [NovoLOG Flexpen] See Protocol SQ ACHS Magnesium Oxide [Mag-Ox] 400 mg PO BID Furosemide [Lasix] 80 mg PO BID Dulaglutide [Trulicity] 1.5 mg SQ FR Ascorbic Acid [Vitamin C] 500 mg PO DAILY@0800 Dapagliflozin Propanediol [Farxiga] 5 mg PO DAILY@0800 tab Omeprazole 20 mg PO DAILY metFORMIN HCL [Glucophage] 1,000 mg PO BID Bumetanide [Bumex] 1 mg PO BID Discharge Medication List Acetaminophen [Tylenol] 650 mg PO Q4H PRN 11/30/23 [History] Melatonin 3 mg PO HS 11/30/23 [History] Metoprolol Tartrate [Lopressor] 25 mg PO BID@0800,1600 11/30/23 [History] Ondansetron [Zofran] 4 mg PO Q6H PRN 11/30/23 [History] Sennosides/Docusate Sodium [Senna Plus 8.6-50 mg Tablet] 2 tab PO HS 11/30/23 [History] guaiFENesin [guaiFENesin Oral Solution] 200 mg PO Q4H PRN 11/30/23 [History] Apixaban [Eliquis] 2.5 mg PO BID@0800,1600 tab 12/06/23 [Rx] Ipratropium-Albuterol Nebulize [Duoneb 0.5 mg-3 mg/3 ml Soln] 3 ml INHALATION RT-QID each 12/06/23 [Rx] Lactulose [Cephulac] 20 gm PO BID ml 12/06/23 [Rx] Potassium Chloride ER [K-Dur 20] 20 meq PO DAILY #0 tab 12/06/23 [Rx] Triamcinolone 0.1% Cream [Kenalog 0.1% Cream] 1 applic TOPICAL BID each 12/06/23 [Rx] diphenhydrAMINE [Benadryl] 25 mg PO TID PRN cap 12/06/23 [Rx] ALPRAZolam [Xanax] 0.25 mg PO BID PRN 12/11/23 [History] Bumetanide [BUMEX] 3 mg PO BID #180 tab 12/26/23 [Rx] Loratadine [Claritin] 10 mg PO DAILY tab 12/26/23 [Rx] Venlafaxine HCl [Effexor] 37.5 mg PO DAILY #30 tab 12/26/23 [Rx] metOLazone [Zaroxolyn] 5 mg PO DAILY #30 tab 12/26/23 [Rx] Follow up Appointment(s)/Referral(s): Kinjal Liu MD [Primary Care Provider] - As Needed Discharge Disposition: HOME WITH HOSPICE
--- NOTE | 2024-01-03 15:31 | CDI ---
Documentation Clarification Form Date: 01/03/2024 02:13:48 PM From: Adriana Triana Admit Date: 12/13/2023 04:37:00 PM Patient Name: Sybil Brandt Visit Number: [id number] Discharge Date: 12/26/2023 02:03:00 PM ATTENTION: The Clinical Documentation Specialists (CDI) and [facility] Coding Staff appreciate your assistance in clarifying documentation. Please respond to the clarification below the line at the bottom and electronically sign. The CDI & [facility] Coding staff will review the response and follow-up if needed. Please note: Queries are made part of the Legal Health Record. If you have any questions, please contact the author of this message via ITS. Dr. Kinjal Liu Conflicting documentation has been found in the medical record. As attending physician, please provide clarification with POA status. Per your H&P 12/11/23 patient has left lower lobe pneumonia. Resolved Progress notes and consult 12/11-12/19 no clear indication for pneumonia Progress note 12/12 her presentation is mostly of CHF, no clear cut evidence of pneumonia, no evidence of PE, patient is likely fluid overloaded Your Discharge Summary 12/26/23 left lower lobe pneumonia History/Risk Factors: patient is an 88 year old female with a history of a recent hospital stay almost a week for treatment of cough and shortness of breath. She tested positive for COVID recently and has a post viral cough. She has chronic edema to bilateral lower extremities and has been taking diuretics on an outpatient basis. Her mobility is limited. She has a history of DM 2, HTN, HLD, spinal stenosis, chronic AFIB, systolic CHF, and chronic venous stasis. Clinical Indicators: patient has chronic lower extremity edema, with signs of fluid overload. She was diagnosed with acute on chronic hypoxic respiratory failure, acute exacerbation systolic CHF, severe pulmonary HTN, no clear indication for pneumonia, no evidence of pulmonary embolism. CKD 3, DM 2, paroxysmal AFIB, and morbid obesity. Treatment: Bumex, oxygen, Lasix 40 mg, hernandez catheter, eliquis, doxycycline was started 12/19, Azactam 12/23 for UTI with pseudomonas aeruginosa. Chest x-ray 12/11: worsening left sided lateral effusion and atelectasis with underlying infectious process not excluded. Right lower lobe pneumonia Chest x-ray 12/14 cardiomegaly and mild pulmonary vascular congestion. Correlate with BNP for CHF. Chest x-ray 12/18 left lower lobe infiltrate and or effusion. Left midlung peripheral plate like atelectasis Please clarify which diagnosis is most appropriate: [X ] Pneumonia present on admission [ ] Pneumonia not present on admission [ ] Pneumonia ruled out [ ] Other (please specify) [ ] Unable to determine MTDD
== END 2023-12-26 14:03 | disposition hospice, home (50) | DRG 291 ==
LOC: EC 03:21 → 4SSUR 06:26 → OBSVTOIN 12-13 16:37 → 3SCARD 12-15 15:07 → 5NMEDONC 12-24 19:00
PROVIDERS: ADMIT Internal Medicine; ATTEND Internal Medicine
DX: I13.0 Hypertensive heart and chronic kidney disease with heart failure and stage 1 through stage 4 chronic kidney disease, or unspecified chronic kidney disease (principal); I50.23 Acute on chronic systolic (congestive) heart failure; J96.21 Acute and chronic respiratory failure with hypoxia; J18.9 Pneumonia, unspecified organism; N39.0 Urinary tract infection, site not specified; Z68.43 Body mass index [BMI] 50.0-59.9, adult; F33.9 Major depressive disorder, recurrent, unspecified; U09.9 Post COVID-19 condition, unspecified; Z66 Do not resuscitate; Z51.5 Encounter for palliative care; N18.30 Chronic kidney disease, stage 3 unspecified; I48.0 Paroxysmal atrial fibrillation; I27.20 Pulmonary hypertension, unspecified; E66.01 Morbid (severe) obesity due to excess calories; E11.22 Type 2 diabetes mellitus with diabetic chronic kidney disease; Z79.4 Long term (current) use of insulin; D69.6 Thrombocytopenia, unspecified; I08.2 Rheumatic disorders of both aortic and tricuspid valves; E87.6 Hypokalemia; E78.5 Hyperlipidemia, unspecified; D63.1 Anemia in chronic kidney disease; I87.2 Venous insufficiency (chronic) (peripheral); B96.5 Pseudomonas (aeruginosa) (mallei) (pseudomallei) as the cause of diseases classified elsewhere; R04.0 Epistaxis; M48.00 Spinal stenosis, site unspecified; M21.379 Foot drop, unspecified foot; K21.9 Gastro-esophageal reflux disease without esophagitis; R05.8 Other specified cough; I95.9 Hypotension, unspecified; R32 Unspecified urinary incontinence; J30.9 Allergic rhinitis, unspecified; I87.8 Other specified disorders of veins; Z96.653 Presence of artificial knee joint, bilateral; Z88.0 Allergy status to penicillin; Z88.1 Allergy status to other antibiotic agents; Z96.612 Presence of left artificial shoulder joint; Z91.119 Patient's noncompliance with dietary regimen due to unspecified reason; Z86.718 Personal history of other venous thrombosis and embolism; Z86.711 Personal history of pulmonary embolism; Z79.899 Other long term (current) drug therapy; Z79.84 Long term (current) use of oral hypoglycemic drugs; Z79.01 Long term (current) use of anticoagulants; Z99.3 Dependence on wheelchair; Z87.01 Personal history of pneumonia (recurrent)
CPT/HCPCS: 36415; 71045; 71046; 80048; 80053; 81001; 83735; 85025; 87077; 87086; 87186; 93005; 94640; 94760; 96361; 96374; 99285